=== PATIENT | male | born 1940 | race Caucasian/White ===

== ENCOUNTER → 2016-12-29 | Outpatient (CLI) | payer OTHER ==
[~2016-12-29] MED LIST: ACET-1256 PO; ALBU1AER9 INH; ALLO1TAB51 PO; ATEN-173 PO; Asmanex INH; CYAN100T PO; CYCL10TA6 PO; DILT-113 PO; EPP3 IM; FEXO1TAB46 PO; FLAX10004 PO; FLV1 PO; GABA400C PO; GADAVIST IV PRN; GARL400T4 PO; HYDR-5688 PO; LEVA1.25 NEB; MOME50SP5; PRAZ2CAP3 PO; PRLSR20 PO; PRN10125 PO; QUET1TAB30 PO; THIA100T11 PO; TRAZ50TA35 PO; VENL-271 PO
--- NOTE | 2016-12-29 11:28 | DIAGNOSTIC IMAGING REPORT ---
CERVICAL SPINE MRI WITH AND WITHOUT CONTRAST HISTORY: Neuropathy. Pain. M48.02 Degenerative cervical spinal stenosis TECHNIQUE: Multiplanar multisequence MRI of the cervical spine was performed both before and after the use of intravenous contrast. COMPARISON STUDY: None. FINDINGS: Severe degenerative intervertebral disc change throughout the entire cervical region. Reactive edematous change of the vertebral endplates. Sagittal images in flexion as well as extension show no significant variation compromise of the spinal canal. Hypertrophic change of the C1-C2 complex. Mild impact anterior cervical cord. C2-C3: Broad-based bulging disc with minimal impact anterior cervical cord. Moderate osteophytic narrowing of the neuroforamina bilaterally. C3-C4: Severe degenerative intervertebral this change. Broad-based bulging disc with moderate narrowing of the neuroforamina bilaterally at osteophytic bases. C4-C5: Broad-based posterior disc with osteophytic narrowing of the neuroforamina bilaterally. This is significant. C5-C6: Broad-based bulging disc again with osteophytic narrowing of the neuroforamina bilaterally. C6-C7: Broad-based bulging disc in contact with but showing no significant deformity of the cervical cord. Mild osteophytic narrowing of the left and to lesser extent left right neuroforamina. C7-T1: Mild broad-based disc bulge. No major impact upon the cervical cord or neuroforamina IMPRESSION: 1. Severe degenerative disc change throughout the entire cervical region. 2. Moderate to significant narrowing of the bulk of the neuroforamina bilaterally at all levels from C2 to through C5 3. Less prominent findings C5-C7. 4. Somewhat narrow spinal canal at virtually all levels of the cervical canal 5. No evidence for increase in foraminal or spinal canal narrowing with the patient in flexion as well as extension 6. No abnormal postcontrast enhancement. Electronically signed by: Chaparro Ochoa M.D. 12/29/2016 11:27 AM Dictated Date/Time: 12/29/2016 11:11 AM
== END | disposition home or self-care (01) ==
LOC: C.MRI 09:36
PROVIDERS: ATTEND Internal Medicine
DX: M48.02 Spinal stenosis, cervical region (principal)

== ENCOUNTER 2017-04-08 06:50 | Inpatient (IN) | payer OTHER ==
[2017-03-12 10:27] VITALS: BMI 24.0
--- NOTE | 2017-03-12 11:06 | PAT Medication Instructions ---
Service Date March 12, 2017. Current Home Medication List Acetaminophen (Tylenol), 1,000 MG PO BID Albuterol (Proair Hfa), 2 PUFFS INH Q6HR PRN Allopurinol (Allopurinol), 100 MG PO QPM Atenolol (Tenormin), 25 MG PO QAM Cyanocobalamin (Vitamin B-12), 100 MCG PO QAM Cyclobenzaprine Hcl (Flexeril), 1 TAB PO TID Diltiazem Hcl Ext Rel (Tiazac), 180 MG PO QAM Epinephrine (Epipen *), 0.3 MG IM UD Fexofenadine Hcl (Yaritza), 180 MG PO DAILY PRN for ALLERGY Folic Acid (Folic Acid), 1 MG PO QAM Garlic-Calcium (Garlic), PO QAM Hydrocodone/Acetaminophen 5MG/325MG ([place] 5MG/325MG), 1 TABLET PO DAILY PRN Levalbuterol Soln (Xopenex 1.25MG/3ML), 1 AMP NEB Q6HR PRN Lisinopril/Hctz (Zestoretic 10MG/12.5MG *), 1 TAB PO QAM Mometasone Furoate (Nasonex), 2 SPRAYS NA BID Omeprazole (Prilosec), 20 MG PO BID Prazosin Hcl (Prazosin), 2 MG PO HS Thiamine Hcl (Vitamin B-1), 100 MG PO QAM Trazodone Hcl (Trazodone), 50 MG PO HS Venlafaxine Hcl (Venlafaxine Hcl Er), 3 TAB PO QAM Medication Instructions For Your Scheduled Surgery Epinephrine (Epipen *), 0.3 MG IM UD (if needed) - Hold the following medications 2 weeks prior to surgery: Garlic-Calcium (Garlic), PO QAM - Hold the following medications the morning of surgery: Thiamine Hcl (Vitamin B-1), 100 MG PO QAM Lisinopril/Hctz (Zestoretic 10MG/12.5MG *), 1 TAB PO QAM Fexofenadine Hcl (Yaritza), 180 MG PO DAILY PRN for ALLERGY Folic Acid (Folic Acid), 1 MG PO QAM Cyanocobalamin (Vitamin B-12), 100 MCG PO QAM Cyclobenzaprine Hcl (Flexeril), 1 TAB PO TID - Take the following medications the morning of surgery with a sip of water: Venlafaxine Hcl (Venlafaxine Hcl Er), 3 TAB PO QAM Mometasone Furoate (Nasonex), 2 SPRAYS NA BID Omeprazole (Prilosec), 20 MG PO BID Levalbuterol Soln (Xopenex 1.25MG/3ML), 1 AMP NEB Q6HR PRN (if needed) Hydrocodone/Acetaminophen 5MG/325MG ([place] 5MG/325MG), 1 TABLET PO DAILY PRN (can take up to four hours prior to surgery if needed) Diltiazem Hcl Ext Rel (Tiazac), 180 MG PO QAM Atenolol (Tenormin), 25 MG PO QAM Acetaminophen (Tylenol), 1,000 MG PO BID (if needed) Albuterol (Proair Hfa), 2 PUFFS INH Q6HR PRN (bring with you to hospital on day of surgery) Asmanex - Take the following medications as scheduled the night before surgery: Trazodone Hcl (Trazodone), 50 MG PO HS Prazosin Hcl (Prazosin), 2 MG PO HS Mometasone Furoate (Nasonex), 2 SPRAYS NA BID Omeprazole (Prilosec), 20 MG PO BID Levalbuterol Soln (Xopenex 1.25MG/3ML), 1 AMP NEB Q6HR PRN Hydrocodone/Acetaminophen 5MG/325MG ([place] 5MG/325MG), 1 TABLET PO DAILY PRN Cyclobenzaprine Hcl (Flexeril), 1 TAB PO TID Allopurinol (Allopurinol), 100 MG PO QPM Acetaminophen (Tylenol), 1,000 MG PO BID Albuterol (Proair Hfa), 2 PUFFS INH Q6HR PRN Asmanex If you have any questions please call us at [phone] or [phone] ( [place]) or [phone]
[2017-03-12 11:26] LABS: BASO % 0.2 %; BASO ABS # 0.01 K/uL (0-0.2); COMPLETE YES; EOS % 3.7 %; HEMATOCRIT 38.6 % (42-52); IG% 0.2 %; LYMPH % 18.8 %; LYMPH ABS # 1.11 K/uL (1.2-3.4); MEAN CELL VOLUME 96.5 fL (80-100); MEAN CORPUSCULAR HEMOGLOBIN 32.3 pg (25-34); MEAN CORPUSCULAR HGB CONC 33.4 g/dl (32-36); MEAN PLATELET VOLUME 9.3 fL (7.4-10.4); MONO % 10.3 %; NEUT % 66.8 %; PLATELET COUNT 206 K/uL (130-400)
[2017-03-12 11:31] LABS: MANUAL MICROSCOPIC REQUIRED? NO; REVIEW REQ? NO; URINE APPEARANCE CLEAR (CLEAR); URINE BILIRUBIN NEG (NEG); URINE COLOR YELLOW; URINE EPITHELIAL CELL AUTO 0-5 /lpf (0-5); URINE NITRITE NEG (NEG); URINE PH 5.5 (4.5-7.5); URINE SPECIFIC GRAVITY 1.018 (1.000-1.030); UROBILINOGEN NEG (NEG); ZZUR CULT IF INDIC CLEAN CATCH NO
[2017-03-12 11:35] LABS: INR 0.9 (0.9-1.1); PROTHROMBIN TIME (PATIENT) 9.4 SECONDS (9.0-12.0)
--- NOTE | 2017-03-12 11:54 | DIAGNOSTIC IMAGING REPORT ---
CHEST 2 VIEWS ROUTINE CLINICAL HISTORY: Preoperative chest COMPARISON STUDY: 12/21/2011 FINDINGS: The cardiac and mediastinal contours are normal. There is no evidence of focal pulmonary consolidation. There is no evidence of failure. No pleural effusions are visualized.[ IMPRESSION: No active disease in the chest. Electronically signed by: Andrew Golden M.D. 03/12/2017 11:52 AM Dictated Date/Time: 03/12/2017 11:52 AM
[2017-03-12 12:39] LABS: ESTIMATED AVERAGE GLUCOSE 108 mg/dl; HA1C FLAG Normal (Normal)
[2017-03-12 15:39] LABS: BUN/CREATININE RATIO 16.8 (10-20); CALCIUM 9.1 mg/dl (8.5-10.1); CREATININE 1.7 mg/dl (0.60-1.40); POTASSIUM 4.7 mmol/L (3.5-5.1)
--- NOTE | 2017-04-07 19:53 | HISTORY & PHYSICAL EXAMINATION ---
DATE OF ADMISSION: 04/08/2017 CHIEF COMPLAINT: Chronic right shoulder pain and weakness. HISTORY OF PRESENT ILLNESS: This is a 76-year-old male patient of Dr. Davila'donte complaining of chronic right shoulder pain and weakness, longstanding, now progressively getting worse. The patient has failed conservative treatment. He has been diagnosed with end-stage osteoarthritis and insufficient rotator cuff. PAST MEDICAL HISTORY: Hypertension, asthma, anxiety, abnormal bruising, spine problems, back problems, sciatica and acid reflux. SOCIAL HISTORY: Nonsmoker, occasional drinker. PAST SURGICAL HISTORY: Will be provided on admission. FAMILY HISTORY: Noncontributory. REVIEW OF SYSTEMS: The patient complains of right shoulder pain and decreased strength. Otherwise, denies any shortness of breath, chest pain, nausea, vomiting or joint complaints. MEDICATIONS: Include; acetaminophen as needed, albuterol, ProAir 2 puffs q. 6 hours p.r.n., allopurinol 100 mg q.p.m., atenolol 25 mg daily, vitamin B12 100 mcg daily, Flexeril 10 mg one tablet t.i.d. as needed, diltiazem 180 mg daily, epinephrine 0.3 mg injection as needed, Yaritza 180 mg daily, Folic acid 1 mg daily, garlic daily, [place] as needed, Xopenex nebulizer as needed, lisinopril/hydrochlorothiazide 10/12.5 one tablet q.a.m, Nasonex 2 sprays b.i.d., Prilosec 20 mg b.i.d., prazosin 2 mg at bedtime, thiamine daily, trazodone 50 mg daily and venlafaxine 37.5 mg three tablets q.a.m. ALLERGIES: INCLUDE ASPIRIN. PHYSICAL EXAMINATION: GENERAL: Well-developed, well-nourished 76-year-old male in no acute distress. He is alert, oriented x3 and pleasant. HEENT: Normocephalic and atraumatic. Extraocular motions are intact. Pupils are equal and reactive to light. HEART: Regular rate and rhythm, no murmurs appreciated. LUNGS: Clear. ABDOMEN: Soft and nontender, bowel sounds are present. EXTREMITIES: Right shoulder reveals 3/5 strength globally. He can raise his arm in full elevation about 100 degrees passively through full range of motion with pain. NEUROLOGIC: Neurovascularly he is intact in his right upper extremity. 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 He has a history of hypertension, asthma, anxiety, abnormal bruising, spine problems, neck problems, sciatica and acid reflux. PLAN: The patient was advised of his diagnoses. Indications, risks, benefits and postop course have all been reviewed. The patient wishes to proceed with a right reversed total shoulder arthroplasty. Necessary consent forms, preoperative testing and clearances will be obtained.
[2017-04-08] VITALS (8 sets, daily range): BP systolic 138–181; BP diastolic 80–118; PULSE 78–106; TEMP 36.5–37; O2SAT 95–99; Ht 180.3 cm; Wt 82.1 kg
[~2017-04-08] VITALS: Ht 180.3 cm; Wt 82.1 kg
[~2017-04-08 06:50] MED LIST changes: +ACETAMINOPHEN 500 MG TAB PO SCH; +CEFAZOLIN 1000MG/55 ML D5W 55 ML IV SCH; +CeleBREX 200 MG CAP PO SCH; +DEXAMETHASONE 4 MG TAB PO SCH; +DEXAMETHASONE SOD INJ 4 MG/ML VIAL ONE; +FAMOTIDINE 20 MG TAB PO SCH; -FLAX10004 PO; +GABAPENTIN 300 MG CAP PO SCH; -GADAVIST IV PRN; +LACTATED RINGER'S 1000ML IV SCH; +METOCLOPRAMIDE HCL 10 MG TAB PO SCH; -QUET1TAB30 PO; +ROPIVACAINE 0.5% 5 MG/ML 30 ML VIAL ONE
[2017-04-08] MEDS ORDERED: BACITRACIN 50000 UNIT VIAL ONE (07:24)
[2017-04-08] MEDS ORDERED: EpINEphrine HCL INJ 1 MG/ML 5ML SYRINGE ONE (07:24)
[2017-04-08] MEDS ORDERED: ONDANSETRON INJ 2 MG/ML 2 ML VIAL IV PRN ×2 (08:30→12:30)
[2017-04-08] MEDS ORDERED: ATROPINE SULFATE 0.1 MG/ML 5ML SYR IV PRN (08:30)
[2017-04-08] MEDS ORDERED: HYDROmorphone INJ 1 MG/ML SYR IV PRN (08:30)
[2017-04-08] MEDS ORDERED: MEPERIDINE HCL 25 MG/ML CARP IV PRN (08:30)
[2017-04-08] MEDS ORDERED: LABETALOL HCL IV 5 MG/ML 20ML IV PRN (08:30)
[2017-04-08] MEDS ORDERED: FENTANYL CITRATE INJ 50 MCG/1 ML 2 ML VIAL IV PRN (08:30)
[2017-04-08] MEDS ORDERED: EpHEDrine SULFATE INJ 50 MG/ML AMP IV PRN (08:30)
[2017-04-08] MEDS ORDERED: NURSING VERBAL MED ORDER ONE ×2 (08:45→09:15)
[2017-04-08] MEDS ORDERED: VANCOMYCIN 1GM/270ML NSS ONE (09:05)
--- NOTE | 2017-04-08 09:07 | History & Physical Bridge Note ---
H&P Re-Evaluation Bridge Note: I have examined the patient, reviewed the History & Physical and in the interval since the performance of the History & Physical I have noted the following changes of clinical significance: No changes noted
[2017-04-08] MEDS ORDERED: MIDAZOLAM HCL 1 MG/ML 2ML VIAL ONE (09:15)
[2017-04-08] MEDS ORDERED: LIDOCAINE HCL 2% 2 ML VIAL (20MG/ML) ONE ×2 (09:16→10:45)
[2017-04-08] MEDS ORDERED: FENTANYL CITRATE INJ 50 MCG/1 ML 2 ML VIAL ONE (09:47)
[2017-04-08] MEDS ORDERED: DEXAMETHASONE SOD INJ 4 MG/ML VIAL ONE (10:45)
[2017-04-08] MEDS ORDERED: PROPOFOL IV EMULSION 10 MG/ML 20 ML VIAL IV ONE (10:45)
[2017-04-08] MEDS ORDERED: EpHEDrine SULFATE 50MG/5ML SYR ONE (10:45)
[2017-04-08] MEDS ORDERED: ONDANSETRON INJ 2 MG/ML 2 ML VIAL ONE (10:45)
[2017-04-08] MEDS ORDERED: GLYCOPYRROLATE INJ 0.2 MG/ML VIAL ONE ×2 (10:45)
[2017-04-08] MEDS ORDERED: ROCURONIUM BROMIDE 10 MG/ML 5 ML VIAL ONE ×2 (10:45)
[2017-04-08] MEDS ORDERED: NEOSTIGMINE METHYLSULFATE 5 MG/5 ML SYR ONE (10:45)
[2017-04-08] MEDS ORDERED: LABETALOL HCL IV 5 MG/ML 20ML IV ONE (10:57)
--- NOTE | 2017-04-08 12:23 | [facility] Operative Report ---
Operative Report Operative Date Apr 08, 2017. Pre-Operative Diagnosis Right shoulder end-stage osteoarthritis,chronic rotator cuff tear biceps tear hx of prior shoulder surgery Post-Operative Diagnosis same Procedure(s) Performed right reversed total shoulder replacement Surgeon Dr. Davila Pull Worker Surgeon(s) Chaparro Ann PA-C Estimated Blood Loss 100mL Findings rotator cuff arthropathy grade 4 djd chronic rotator cuff tear tendinopathy Specimens A. Right humeral head Drains 2 hemovac Anesthesia general and regional Complication(s) None Disposition Recovery Room / PACU Indications end stage djd chronic pain rotator cuff arthropathy I attest to the content of the Intraoperative Record and any orders documented therein. Any exceptions are noted below.
[2017-04-08] MEDS ORDERED: FEXOFENADINE HCL 180 MG TAB PO PRN (12:30)
[2017-04-08] MEDS ORDERED: EPINEPHRINE ADULT AUTO-INJECT 0.3 MG SYR IM SCH (12:30)
[2017-04-08] MEDS ORDERED: ZOLPIDEM TARTRATE 5 MG TAB PO PRN (12:30)
[2017-04-08] MEDS ORDERED: SOD PHOSPHATE/SOD BIPHOSPHATE ENEMA 132 ML BTL PR PRN (12:30)
[2017-04-08] MEDS ORDERED: ACETAMINOPHEN 325 MG TAB PO PRN (12:30)
[2017-04-08] MEDS ORDERED: HYDROCODONE/ACETAMOPHEN 5/325MG TAB PO PRN (12:30)
[2017-04-08] MEDS ORDERED: BISACODYL 10 MG SUPP PR PRN (12:30)
[2017-04-08] MEDS ORDERED: NALOXONE HCL 0.4 MG/1 ML VIAL/CARP IV PRN (12:30)
--- NOTE | 2017-04-08 13:15 | DIAGNOSTIC IMAGING REPORT ---
RIGHT SHOULDER 2 VIEWS CLINICAL HISTORY: Postoperative examination. FINDINGS: Two portable views of the right shoulder are obtained. A right shoulder arthroplasty is in near-anatomic alignment. No fracture is seen. Productive degenerative change is noted at the acromioclavicular joint. There are expected postoperative findings overlying the right shoulder, including skin clips, subcutaneous gas, soft tissue swelling, and a surgical drain. The imaged right lung parenchyma appears clear noting dependent atelectasis. IMPRESSION: Expected postoperative findings status post right shoulder arthroplasty. No acute fracture is identified. Dictated: 04/08/2017 12:50 PM Transcribed: 04/08/2017 1:15 PM [email or web address] Electronically signed by: Phill Oakley M.D. 04/08/2017 1:35 PM Dictated Date/Time: 04/08/2017 12:50 PM
[2017-04-08] MEDS ORDERED: MoRPHine SULFATE 4 MG/ML 1 ML CARP\\VIAL IV PRN (13:30)
--- NOTE | 2017-04-08 14:17 | Anesthesiology Progress Note ---
Anesthesia Post Op Note Date & Time Apr 08, 2017 at 14:17 Vital Signs Pain Intensity: 0.0 Vital Signs Past 12 Hours Date Time Temp Pulse Resp B/P (MAP) Pulse Ox O2 Delivery O2 Flow Rate FiO2 04/08/17 13:50 98 Nasal Cannula 2.0 04/08/17 13:48 36.5 78 18 150/81 (104) 96 Nasal Cannula 2.0 04/08/17 13:30 36.4 75 18 133/93 96 Nasal Cannula 3 04/08/17 13:15 36.4 72 18 148/93 96 Nasal Cannula 3 04/08/17 12:52 145/86 04/08/17 12:50 83 18 145/86 94 Nasal Cannula 3 04/08/17 12:48 88 20 04/08/17 12:48 86 20 96 04/08/17 12:47 151/91 04/08/17 12:43 87 14 98 04/08/17 12:43 87 14 04/08/17 12:42 168/118 04/08/17 12:38 89 16 04/08/17 12:38 85 16 96 04/08/17 12:36 145/106 04/08/17 12:33 86 15 04/08/17 12:33 85 15 98 04/08/17 12:32 139/105 04/08/17 12:29 162/103 04/08/17 12:28 85 18 04/08/17 12:28 88 18 98 04/08/17 12:27 154/104 04/08/17 12:25 145/100 04/08/17 12:23 36.2 87 18 154/104 98 Mask 10 04/08/17 07:43 36.8 95 20 181/118 98 Room Air Notes Mental Status: alert / awake / arousable, participated in evaluation Pt Amnestic to Procedure: Yes Nausea / Vomiting: adequately controlled Pain: adequately controlled Airway Patency, RR, SpO2: stable & adequate BP & HR: stable & adequate Hydration State: stable & adequate Anesthetic Complications: no major complications apparent
[2017-04-08] MEDS ORDERED: HydrALAZINE HCL 20 MG/ML VIAL IV. PRN (15:15)
--- NOTE | 2017-04-08 15:29 | Medical Consult ---
Consultation Date of Consultation: Apr 08, 2017. Attending Physician: Chi Davila M.D. Reason for Consultation: Medical management History of Present Illness This is a 76 y/o male with a history of HTN, HLD, CKD stage III, anxiety/ depression and PTSD, gout, and GERD who presents s/p right reversed TSA with Dr. Davila on 04/08 for medical management. The patient reports feeling well postoperatively. He currently denies any pain. He still reports numbness and tingling in his right shoulder and right upper extremity down to his fingers. Patient has not eaten, urinated, passed gas, or had a bowel movement yet postoperatively. The patient denies fevers, chills, sweats, chest pain, palpitations, claudication, cough, wheezing, shortness of breath, nausea, vomiting, abdominal pain, dysuria, hematuria, urinary retention, paralysis, weakness. Past Medical/Surgical History HTN HLD CKD stage III Anxiety Depression PTSD Gout GERD Family History Cancer (breast) Hypertension Myocardial infarction Social History Smoking Status: Former Smoker Smokeless Tobacco Use: Yes Alcohol Use: heavy (3-4 beers/day) Drug Use: none Marital Status: Housing Status: lives with significant other Occupation Status: retired Allergies Coded Allergies: Aspirin (Verified Allergy, Severe, hives and mouth/throat swelling, hyperventilation, 04/08/17) hypervents,HIVES AND SWELLING Ketorolac (Verified Allergy, Unknown, avoids secondary to aspirin component , 04/08/17) Oxycodone (Verified Allergy, Unknown, HALLUCINTATIONS, 04/08/17) Statins (Verified Allergy, Unknown, severe muscle cramps, 04/08/17) Current Inpatient Medications Current Inpatient Medications Medications (Trade) Dose Ordered Sig/Lakshmi Route Start Time Stop Time Status Last Admin Dose Admin Lactated Ringer's 1,000 ml @ 60 mls/hr [id number] IV 04/08/17 06:00 04/08/17 22:39 04/08/17 07:31 60 MLS/HR Cefazolin Sodium 55 ml @ 100 mls/hr PREOP IV 04/08/17 06:00 04/08/17 18:00 04/08/17 09:06 100 MLS/HR Acetaminophen (Tylenol Tab) 1,000 mg PREOP PO 04/08/17 06:00 04/08/17 18:00 6/8/17 07:57 1,000 MG Celecoxib (CeleBREX CAP) 200 mg PREOP PO 04/08/17 06:00 04/08/17 18:00 Dexamethasone (Decadron Tab) 8 mg PREOP PO 04/08/17 06:00 04/08/17 18:00 04/08/17 07:58 8 MG Famotidine (Pepcid Tab) 20 mg PREOP PO 04/08/17 06:00 04/08/17 18:00 04/08/17 07:57 20 MG Gabapentin (Neurontin Cap) 300 mg PREOP PO 04/08/17 06:00 04/08/17 18:00 04/08/17 07:57 300 MG Metoclopramide HCl (Reglan Tab) 10 mg PREOP PO 04/08/17 06:00 04/08/17 18:00 04/08/17 07:58 10 MG Lactated Ringer's 1,000 ml @ 15 mls/hr Q24H IV 04/08/17 06:00 04/09/17 05:59 Allopurinol (Zyloprim Tab) 100 mg QPM PO 04/09/17 21:00 05/09/17 20:59 Atenolol (Tenormin Tab) 25 mg QAM PO 04/09/17 09:00 05/09/17 08:59 Cyanocobalamin (Vitamin B-12 Tab) 100 mcg QAM PO 04/09/17 09:00 05/09/17 08:59 Cyclobenzaprine HCl (Flexeril Tab) 10 mg TID PO 04/08/17 21:00 05/08/17 20:59 Diltiazem HCl (TIAzac CAP) 180 mg QAM PO 04/09/17 09:00 05/09/17 08:59 Fexofenadine HCl (Yaritza Tab) 180 mg DAILY PRN PO 04/08/17 12:30 05/08/17 12:29 Folic Acid (Folvite Tab) 1 mg QAM PO 04/09/17 09:00 05/09/17 08:59 Gabapentin (Neurontin Cap) 400 mg TID PO 04/08/17 21:00 05/08/17 20:59 Levalbuterol (Xopenex 1.25MG/ 3ML Neb) 1.25 mg Q6RWA PRN INH 04/08/17 21:00 05/08/17 20:59 HCTZ/Lisinopril (Prinzide 10-12.5MG Tab) 1 tab QAM PO 04/09/17 09:00 05/09/17 08:59 Future Hold Thiamine HCl (Vitamin B-1 Tab) 100 mg QAM PO 04/09/17 09:00 05/09/17 08:59 Trazodone HCl (Desyrel Tab) 50 mg HS PO 04/08/17 21:00 05/08/17 20:59 Fluticasone Propionate (Flonase Nasal [place]) 2 sprays BID NA 04/08/17 21:00 05/08/17 20:59 Prazosin HCl (Prazosin) 2 mg HS PO 04/08/17 21:00 05/08/17 20:59 Venlafaxine HCl (effeXOR EXTENDED REL CAP) 112.5 mg QAM PO 04/09/17 09:00 05/09/17 08:59 Mometasone Furoate (Asmanex 220MCG Inh) 1 puff BID PRN INH 04/08/17 12:30 05/08/17 12:29 Acetaminophen (Tylenol Tab) 650 mg Q6H PRN PO 04/08/17 12:30 05/08/17 12:29 Diphenhydramine HCl (Benadryl Cap) 25 mg Q8 PRN PO 04/08/17 12:30 05/08/17 12:29 Zolpidem Tartrate (Ambien Tab) 5 mg HSZ PRN PO 04/08/17 12:30 05/08/17 12:29 Ondansetron HCl (Zofran Inj) 4 mg Q6H PRN IV 04/08/17 12:30 05/08/17 12:29 Pantoprazole Sodium (Protonix Tab) 40 mg QAM PO 04/09/17 09:00 05/09/17 08:59 Potassium Chloride/Dextrose/ Sod Cl 1,000 ml @ 100 mls/hr Q10H IV 04/08/17 15:00 04/09/17 14:59 Acetaminophen/ Hydrocodone Bitart ([place] 5/325 Tab) `1-2 TABS FOR PAIN `1 TAB... Q6H PRN PO 04/08/17 12:30 04/22/17 12:29 Morphine Sulfate (MoRPHine SULFATE INJ) 2 mg Q2H PRN IV 04/08/17 12:30 04/22/17 12:29 Naloxone HCl (Narcan Inj) 0.1 mg Q2M PRN IV 04/08/17 12:30 05/08/17 12:29 Magnesium Hydroxide (Milk Of Magnesia Susp) 30 ml Q6H PRN PO 04/08/17 12:30 05/08/17 12:29 Bisacodyl (Dulcolax Supp) 10 mg DAILY PRN [place] 04/08/17 12:30 05/08/17 12:29 Sodium Biphosphate/ Sodium Phosphate (Fleet Enema) 132 ml DAILY PRN [place] 04/08/17 12:30 05/08/17 12:29 Docusate Sodium (coLACE CAP) 100 mg BID PO 04/08/17 21:00 05/08/17 20:59 Multivitamins (Multivitamin Tab) 1 tab DAILY PO 04/09/17 09:00 05/09/17 08:59 Cefazolin Sodium 1000 mg/Dextrose 55 ml @ 100 mls/hr Q8H IV 04/08/17 18:00 04/09/17 02:32 Morphine Sulfate (MoRPHine SULFATE INJ) 4 mg Q2H PRN IV 04/08/17 13:30 04/22/17 13:29 Albuterol (Ventolin Hfa Inhaler) 2 puffs Q6HWA PRN INH 04/08/17 18:00 05/08/17 17:59 Hydralazine HCl (HydrALAZINE INJ) 10 mg Q6H PRN IV. 04/08/17 15:15 05/08/17 15:14 UNV Review of Systems See HPI for pertinent positives and negatives. All other systems reviewed and negative. Physical Exam Date Time Temp Pulse Resp B/P (MAP) Pulse Ox O2 Delivery O2 Flow Rate FiO2 04/08/17 15:05 96 18 152/83 (106) 99 Nasal Cannula 2.0 04/08/17 14:20 81 14 138/80 (99) 99 Nasal Cannula 2.0 04/08/17 14:00 Nasal Cannula 2.0 04/08/17 13:50 98 Nasal Cannula 2.0 04/08/17 13:48 36.5 78 18 150/81 (104) 96 Nasal Cannula 2.0 04/08/17 13:30 36.4 75 18 133/93 96 Nasal Cannula 3 04/08/17 13:15 36.4 72 18 148/93 96 Nasal Cannula 3 04/08/17 12:52 145/86 04/08/17 12:50 83 18 145/86 94 Nasal Cannula 3 04/08/17 12:48 88 20 04/08/17 12:48 86 20 96 04/08/17 12:47 151/91 04/08/17 12:43 87 14 98 04/08/17 12:43 87 14 04/08/17 12:42 168/118 04/08/17 12:38 89 16 04/08/17 12:38 85 16 96 04/08/17 12:36 145/106 04/08/17 12:33 86 15 04/08/17 12:33 85 15 98 04/08/17 12:32 139/105 04/08/17 12:29 162/103 04/08/17 12:28 85 18 04/08/17 12:28 88 18 98 04/08/17 12:27 154/104 04/08/17 12:25 145/100 04/08/17 12:23 36.2 87 18 154/104 98 Mask 10 04/08/17 07:43 36.8 95 20 181/118 98 Room Air General appearance: Well-developed, well-nourished, no apparent distress Head: Normocephalic, atraumatic Eyes: Normal inspection, PERRL, EOMI ENT: Normal ENT inspection, hearing grossly normal, pharynx normal Neck: Supple, no JVD, trachea midline Respiratory/Chest: Lungs clear to auscultation, normal breath sounds, no respiratory distress Cardiovascular: Regular rate & rhythm, no gallop, no murmur Abdomen/GI: Normal bowel sounds, non-tender, soft Extremities/Musculoskeletal: +R shoulder dressed, c/d/i. R sling. Normal inspection, no calf tenderness, no pedal edema Neurological/Psych: Alert, normal mood/affect, oriented x 3 Skin: Normal color, warm/dry, no rash Laboratory Results Last 24 Hours Test 04/08/17 15:05 Assessment & Plan 76 y/o male with a history of HTN, HLD, CKD stage III, anxiety/depression and PTSD, gout, and GERD who presents s/p right reversed TSA with Dr. Davila on 04/08 for medical management. -Pain management, DVT prophylaxis, and PT/OT as per primary team -POD #0 -Continue gabapentin 400 mg PO TID HTN--stable -Hold lisinopril/HCTZ for now until renal function checked/stable and off IVF -Continue atenolol 25 mg PO qd and diltiazem 180 mg PO qd -Cover with hydralazine 10 mg IV q6h prn SBP >180 CKD stage III--baseline creatinine around 1.6-1.8 -PRP pending -Continue to monitor Anxiety, depression, PTSD -Continue trazodone 50 mg PO qhs, venlafaxine 112.5 mg PO qd, and prazosin 2 mg PO qhs Gout -Continue allopurinol 100 mg PO qd GERD -Convert omeprazole to pantoprazole 40 mg PO qd Thank you for this consultation. We will continue to follow. Assessment and Plan Attending Addendum: I have physically seen and examined this patient, directed their medical care, supervised the Physician On Awake Counselor's activity, and agree with the H&P as noted above, with the following changes: NONE.
[2017-04-08] MEDS: D5W AND 1/2NSS + 20MEQ KCL 1,000 ML IV SCH (15:33)
[2017-04-08 15:55] LABS: HEMATOCRIT 38.4 % (42-52); MEAN CELL VOLUME 94.8 fL (80-100); MEAN CORPUSCULAR HEMOGLOBIN 32.6 pg (25-34); MEAN CORPUSCULAR HGB CONC 34.4 g/dl (32-36); MEAN PLATELET VOLUME 9.2 fL (7.4-10.4); PLATELET COUNT 205 K/uL (130-400); RED BLOOD COUNT 4.05 M/uL (4.7-6.1); WHITE BLOOD COUNT 11.96 K/uL (4.8-10.8)
[2017-04-08 16:13] LABS: BUN/CREATININE RATIO 13.5 (10-20); CALCIUM 8.4 mg/dl (8.5-10.1); CREATININE 1.8 mg/dl (0.60-1.40); POTASSIUM 4.7 mmol/L (3.5-5.1)
[2017-04-08 16:19] LABS: BASO % 0.1 %; BASO ABS # 0.01 K/uL (0-0.2); COMPLETE YES; EOS % 0.1 %; IG% 0.2 %; LYMPH % 3.4 %; LYMPH ABS # 0.41 K/uL (1.2-3.4); MONO % 1.3 %; NEUT % 94.9 %
[2017-04-08] MEDS: CEFAZOLIN IV 1,000 MG in DEXTROSE 5% 50ML 50 ML IV SCH (17:49)
[2017-04-08] MEDS ORDERED: ALBUTEROL HFA 8 GM INHALER INH SCH (18:00)
[2017-04-08] MEDS: MAGNESIUM HYDROXIDE SUSP 30 ML UDC PO PRN (19:41)
[2017-04-08] MEDS: MOMETASONE FUROATE 14 PUFF/1 INHALER INH PRN (19:41)
[2017-04-08] MEDS: FLUTICASONE PROPIONATE NA SPR 16 GM BTL SCH (20:42)
[2017-04-08] MEDS: DOCUSATE SODIUM 100 MG CAP PO SCH (20:45)
[2017-04-08] MEDS: GABAPENTIN 400 MG CAP PO SCH (20:45)
[2017-04-08] MEDS: CYCLOBENZAPRINE HCL 10 MG TAB PO SCH (20:46)
[2017-04-08] MEDS: PRAZOSIN HCL 1 MG CAP PO SCH (20:46)
[2017-04-08] MEDS: TRAZODONE HCL 50 MG TAB PO SCH (20:46)
[2017-04-09] VITALS (13 sets, daily range): BP systolic 75–196; BP diastolic 54–98; PULSE 82–110; TEMP 36.3–37.8; O2SAT 84–97
[2017-04-09] MEDS: D5W AND 1/2NSS + 20MEQ KCL 1,000 ML IV SCH (00:51)
[2017-04-09] MEDS: MoRPHine SULFATE 2 MG/ML CARP IV PRN ×3 (01:40→14:42)
[2017-04-09] MEDS: CEFAZOLIN IV 1,000 MG in DEXTROSE 5% 50ML 50 ML IV SCH (01:44)
[2017-04-09 05:36] LABS: HEMATOCRIT 35.2 % (42-52); MEAN CELL VOLUME 93.9 fL (80-100); MEAN CORPUSCULAR HGB CONC 34.1 g/dl (32-36); MEAN PLATELET VOLUME 9.4 fL (7.4-10.4); PLATELET COUNT 221 K/uL (130-400); RED BLOOD COUNT 3.75 M/uL (4.7-6.1); WHITE BLOOD COUNT 13.28 K/uL (4.8-10.8)
[2017-04-09 06:12] LABS: CALCIUM 8.5 mg/dl (8.5-10.1); CREATININE 1.7 mg/dl (0.60-1.40)
[2017-04-09] MEDS: DOCUSATE SODIUM 100 MG CAP PO SCH ×2 (08:41→21:00)
[2017-04-09] MEDS: CYCLOBENZAPRINE HCL 10 MG TAB PO SCH ×4 (08:42→21:00)
[2017-04-09] MEDS: GABAPENTIN 400 MG CAP PO SCH ×4 (08:42→23:57)
[2017-04-09] MEDS: PANTOprazole SOD 40 MG TAB PO SCH (08:43)
[2017-04-09] MEDS: DILTIAZEM HCL (TIAzac) 180 MG CAPCR PO SCH (08:43)
[2017-04-09] MEDS: CYANOCOBALAMIN 100 MCG TAB (VIT B-12) PO SCH (08:43)
[2017-04-09] MEDS: MULTIVITAMIN TAB PO SCH (08:44)
[2017-04-09] MEDS: THIAMINE HCL 100 MG TAB PO SCH (08:44)
[2017-04-09] MEDS: VENLAFAXINE HCL XR 37.5 MG CAPXR PO SCH (08:44)
[2017-04-09] MEDS: FLUTICASONE PROPIONATE NA SPR 16 GM BTL SCH ×2 (08:46→23:52)
[2017-04-09] MEDS: MAGNESIUM HYDROXIDE SUSP 30 ML UDC PO PRN (08:51)
--- NOTE | 2017-04-09 08:59 | Orthopedic Progress Note ---
Orthopedic Progress Note Date of Service Apr 09, 2017. Subjective Post OP Day: 1 Reports: pain controlled w PO medications, Denies: chest pain, SOB, nausea / vomiting, light headedness, calf pain Additional Notes: Main issue is pain, patient's chart has oxycodone listed as an allergy but patient states its oxycontin that makes him "loopy" and he has tolerated percocet in the past. Objective N/V intact, capillary refill less than 2 sec., dressing C/D/I, A&O x3 Sling in tact, fingers mobile. Date Time Temp Pulse Resp B/P (MAP) Pulse Ox O2 Delivery O2 Flow Rate FiO2 04/09/17 07:00 Room Air 04/09/17 06:49 36.4 89 18 165/83 (110) 95 Room Air 04/09/17 03:42 36.3 99 16 154/82 (106) 96 Room Air 04/09/17 00:00 Room Air 04/08/17 23:25 36.7 106 16 145/89 (107) 97 Room Air 04/08/17 19:43 36.5 100 24 156/84 (108) 95 Room Air 04/08/17 16:49 37.0 106 15 161/102 (121) 99 Nasal Cannula 3.0 04/08/17 16:00 Nasal Cannula 2.0 04/08/17 15:05 96 18 152/83 (106) 99 Nasal Cannula 2.0 04/08/17 14:20 81 14 138/80 (99) 99 Nasal Cannula 2.0 04/08/17 14:00 Nasal Cannula 2.0 04/08/17 13:50 98 Nasal Cannula 2.0 04/08/17 13:48 36.5 78 18 150/81 (104) 96 Nasal Cannula 2.0 04/08/17 13:30 36.4 75 18 133/93 96 Nasal Cannula 3 04/08/17 13:15 36.4 72 18 148/93 96 Nasal Cannula 3 04/08/17 12:52 145/86 04/08/17 12:50 83 18 145/86 94 Nasal Cannula 3 04/08/17 12:48 88 20 04/08/17 12:48 86 20 96 04/08/17 12:47 151/91 04/08/17 12:43 87 14 98 04/08/17 12:43 87 14 6/8/17 12:42 168/118 04/08/17 12:38 89 16 04/08/17 12:38 85 16 96 04/08/17 12:36 145/106 04/08/17 12:33 86 15 04/08/17 12:33 85 15 98 04/08/17 12:32 139/105 04/08/17 12:29 162/103 04/08/17 12:28 85 18 04/08/17 12:28 88 18 98 04/08/17 12:27 154/104 04/08/17 12:25 145/100 04/08/17 12:23 36.2 87 18 154/104 98 Mask 10 Laboratory Results 24 Hours: Test 04/08/17 15:41 04/09/17 05:05 White Blood Count 11.96 K/uL Red Blood Count 4.05 M/uL Hemoglobin 13.2 g/dL 12.0 g/dL Hematocrit 38.4 % 35.2 % Mean Corpuscular Volume 94.8 fL Mean Corpuscular Hemoglobin 32.6 pg Mean Corpuscular Hemoglobin Concent 34.4 g/dl Platelet Count 205 K/uL Mean Platelet Volume 9.2 fL Neutrophils (%) (Auto) 94.9 % Lymphocytes (%) (Auto) 3.4 % Monocytes (%) (Auto) 1.3 % Eosinophils (%) (Auto) 0.1 % Basophils (%) (Auto) 0.1 % Neutrophils # (Auto) 11.35 K/uL Lymphocytes # (Auto) 0.41 K/uL Monocytes # (Auto) 0.16 K/uL Eosinophils # (Auto) 0.01 K/uL Basophils # (Auto) 0.01 K/uL Assessment & Plan Assessment: POD #1, Rt reversed TSA, biceps tenodesis Plan: PT/ OT as ordered D/C plans home As per medicine Will D/C norco, add oxyIR prn and tylenol q8h. Inhouse Planning Pain Management: Morphine, PO Tylenol, Oxy IR DVT Prophylaxis: SCDs Discharge Planning Discharge Planning: home Pain Management: PO Tylenol, Oxy IR
[2017-04-09] MEDS ORDERED: LISINOPRIL/HCTZ 10/12.5MG TAB PO SCH (09:00)
--- NOTE | 2017-04-09 10:39 | Hospitalist Progress Note ---
Hospitalist Progress Note Date of Service Apr 09, 2017. Subjective Pt evaluation today including: conversation w/ patient, physical exam, chart review, lab review, conversation w/ payroll consultant, review of inpatient medication list Patient reports severe pain that started in the right shoulder and shoots down his right arm. It started about 10 minutes ago. It seemed to come on suddenly. He did notify the nurse to notify the orthopedic PA. He reports tolerating his diet, however he has been burping. He has not yet passed gas. No abdominal pain. No fever or chills. Denies any chest pain or shortness of breath. Additional Comments: 6 system review negative. Please see pertinent positives in the history of present illness section. Objective Vital Signs Date Time Temp Pulse Resp B/P (MAP) Pulse Ox O2 Delivery O2 Flow Rate FiO2 04/09/17 10:29 36.8 84 20 157/88 (111) 84 Room Air 04/09/17 09:45 90 140/97 (111) 96 Room Air 04/09/17 07:00 Room Air 04/09/17 06:49 36.4 89 18 165/83 (110) 95 Room Air 04/09/17 03:42 36.3 99 16 154/82 (106) 96 Room Air 04/09/17 00:00 Room Air 04/08/17 23:25 36.7 106 16 145/89 (107) 97 Room Air 04/08/17 19:43 36.5 100 24 156/84 (108) 95 Room Air 04/08/17 16:49 37.0 106 15 161/102 (121) 99 Nasal Cannula 3.0 04/08/17 16:00 Nasal Cannula 2.0 04/08/17 15:05 96 18 152/83 (106) 99 Nasal Cannula 2.0 04/08/17 14:20 81 14 138/80 (99) 99 Nasal Cannula 2.0 04/08/17 14:00 Nasal Cannula 2.0 04/08/17 13:50 98 Nasal Cannula 2.0 04/08/17 13:48 36.5 78 18 150/81 (104) 96 Nasal Cannula 2.0 04/08/17 13:30 36.4 75 18 133/93 96 Nasal Cannula 3 04/08/17 13:15 36.4 72 18 148/93 96 Nasal Cannula 3 04/08/17 12:52 145/86 04/08/17 12:50 83 18 145/86 94 Nasal Cannula 3 04/08/17 12:48 88 20 04/08/17 12:48 86 20 96 04/08/17 12:47 151/91 04/08/17 12:43 87 14 98 04/08/17 12:43 87 14 04/08/17 12:42 168/118 04/08/17 12:38 89 16 04/08/17 12:38 85 16 96 04/08/17 12:36 145/106 04/08/17 12:33 86 15 04/08/17 12:33 85 15 98 04/08/17 12:32 139/105 04/08/17 12:29 162/103 04/08/17 12:28 85 18 04/08/17 12:28 88 18 98 04/08/17 12:27 154/104 04/08/17 12:25 145/100 04/08/17 12:23 36.2 87 18 154/104 98 Mask 10 Physical Exam General Appearance: + severe distress (in severe pain) Eyes: EOMI Neck: no JVD Respiratory/Chest: lungs clear Cardiovascular: regular rate, rhythm Abdomen: normal bowel sounds, non tender, soft Extremities: non-tender, no pedal edema Neurologic/Psychiatric: no motor/sensory deficits, oriented x 3 Skin: warm/dry Laboratory Results 04/09/17 05:05 04/09/17 05:05 Test 04/08/17 15:41 04/09/17 05:05 Immature Granulocyte % (Auto) 0.2 % White Blood Count 11.96 K/uL (4.8-10.8) Red Blood Count 4.05 M/uL (4.7-6.1) 3.75 M/uL (4.7-6.1) Hemoglobin 13.2 g/dL (14.0-18.0) Hematocrit 38.4 % (42-52) Mean Corpuscular Volume 94.8 fL (80-100) 93.9 fL (80-100) Mean Corpuscular Hemoglobin 32.6 pg (25-34) 32.0 pg (25-34) Mean Corpuscular Hemoglobin Concent 34.4 g/dl (32-36) 34.1 g/dl (32-36) Platelet Count 205 K/uL (130-400) Mean Platelet Volume 9.2 fL (7.4-10.4) 9.4 fL (7.4-10.4) Neutrophils (%) (Auto) 94.9 % Lymphocytes (%) (Auto) 3.4 % Monocytes (%) (Auto) 1.3 % Eosinophils (%) (Auto) 0.1 % Basophils (%) (Auto) 0.1 % Neutrophils # (Auto) 11.35 K/uL (1.4-6.5) Lymphocytes # (Auto) 0.41 K/uL (1.2-3.4) Monocytes # (Auto) 0.16 K/uL (0.11-0.59) Eosinophils # (Auto) 0.01 K/uL (0-0.5) Basophils # (Auto) 0.01 K/uL (0-0.2) Immature Granulocyte # (Auto) 0.02 K/uL (0.00-0.02) Red Blood Cell Morphology Unremarkable RDW Standard Deviation 47.0 fL (36.4-46.3) RDW Coefficient of Variation 13.6 % (11.5-14.5) Anion Gap 7.0 mmol/L (3-11) Est Creatinine Clear Calc Drug Dose 39.4 ml/min Estimated GFR () 44.4 Estimated GFR (Non- 38.3 BUN/Creatinine Ratio 14.0 (10-20) Calcium Level 8.5 mg/dl (8.5-10.1) Last 24 Hours Test 04/08/17 15:41 04/09/17 05:05 White Blood Count 11.96 K/uL 13.28 K/uL Red Blood Count 4.05 M/uL 3.75 M/uL Hemoglobin 13.2 g/dL 12.0 g/dL Hematocrit 38.4 % 35.2 % Mean Corpuscular Volume 94.8 fL 93.9 fL Mean Corpuscular Hemoglobin 32.6 pg 32.0 pg Mean Corpuscular Hemoglobin Concent 34.4 g/dl 34.1 g/dl Platelet Count 205 K/uL 221 K/uL Mean Platelet Volume 9.2 fL 9.4 fL Neutrophils (%) (Auto) 94.9 % Lymphocytes (%) (Auto) 3.4 % Monocytes (%) (Auto) 1.3 % Eosinophils (%) (Auto) 0.1 % Basophils (%) (Auto) 0.1 % Neutrophils # (Auto) 11.35 K/uL Lymphocytes # (Auto) 0.41 K/uL Monocytes # (Auto) 0.16 K/uL Eosinophils # (Auto) 0.01 K/uL Basophils # (Auto) 0.01 K/uL RDW Standard Deviation 47.7 fL 47.0 fL RDW Coefficient of Variation 13.6 % 13.6 % Immature Granulocyte % (Auto) 0.2 % Immature Granulocyte # (Auto) 0.02 K/uL Red Blood Cell Morphology Unremarkable Sodium Level 138 mmol/L 135 mmol/L Potassium Level 4.7 mmol/L 5.0 mmol/L Chloride Level 106 mmol/L 100 mmol/L Carbon Dioxide Level 23 mmol/L 28 mmol/L Anion Gap 9.0 mmol/L 7.0 mmol/L Blood Urea Nitrogen 24 mg/dl 24 mg/dl Creatinine 1.80 mg/dl 1.70 mg/dl Est Creatinine Clear Calc Drug Dose 37.2 ml/min 39.4 ml/min Estimated GFR () 41.4 44.4 Estimated GFR (Non- 35.8 38.3 BUN/Creatinine Ratio 13.5 14.0 Random Glucose 236 mg/dl 163 mg/dl Calcium Level 8.4 mg/dl 8.5 mg/dl Assessment and Plan 76 y/o male with a history of HTN, HLD, CKD stage III, anxiety/depression and PTSD, gout, and GERD who presents s/p right reversed TSA with Dr. Davila on 04/08 for medical management. -Pain management, DVT prophylaxis, and PT/OT as per primary team -Orthopedics will add oxycodone to pain regimen HTN--stable -Continue to hold lisinopril/HCTZ for one more day. If renal function is okay, may resume tomorrow -Continue atenolol 25 mg PO qd and diltiazem 180 mg PO qd -Cover with hydralazine 10 mg IV q6h prn SBP >180 CKD stage III--baseline creatinine around 1.6-1.8. Creatinine is at baseline, however potassium is trending up -Since patient is tolerating diet, DC IV fluids with potassium -Check PRP in the morning Anxiety, depression, PTSD -Continue trazodone 50 mg PO qhs, venlafaxine 112.5 mg PO qd, and prazosin 2 mg PO qhs Gout -Continue allopurinol 100 mg PO qd GERD -Convert omeprazole to pantoprazole 40 mg PO qd Thank you for this consultation. We will continue to follow.
[2017-04-09] MEDS: SODIUM CHLORIDE 0.9% 1000ML 500 ML IV SCH ×2 (11:00→12:00)
[2017-04-09] MEDS ORDERED: NURSING VERBAL MED ORDER ONE (11:45)
[2017-04-09] MEDS ORDERED: ACETAMINOPHEN 500 MG TAB PO SCH (14:00)
--- NOTE | 2017-04-09 14:36 | DIAGNOSTIC IMAGING REPORT ---
CT OF THE HEAD WITHOUT CONTRAST CLINICAL HISTORY: Mental status changes. COMPARISON STUDY: No previous studies for comparison. CT DOSE: 537.48 mGy.cm TECHNIQUE: Helical axial images of the head were obtained without IV contrast. Automated exposure control was utilized for the study. FINDINGS: No acute intracranial hemorrhage, midline shift or mass effect is present. Ventricular system is normal for age. Basilar cisterns are patent. There are no extra-axial collections. Bhat-white differentiation is maintained with there are no findings to suggest acute dural sinus thrombosis or acute territorial infarct. The patient is slightly tilted. There is mild mucosal thickening of the sinuses and a small amount of fluid within the right mastoid air cells. There are no significant calvarial abnormalities. IMPRESSION: No acute intracranial findings. Electronically signed by: Joseluis Jacobsen M.D. 04/09/2017 2:35 PM Dictated Date/Time: 04/09/2017 2:32 PM
[2017-04-09] MEDS: OXYCODONE HCL IR 5 MG TAB (IMMEDIATE RELEASE) PO PRN (17:05)
[2017-04-09] MEDS ORDERED: HYDROmorphone INJ 2 MG/ML SYR/VIAL IV STA (19:11)
[2017-04-09] MEDS ORDERED: HYDROmorphone INJ 2 MG/ML SYR/VIAL IV PRN (19:15)
[2017-04-09] MEDS ORDERED: LORAZEPAM 2 MG/ML 1 ML VIAL IV PRN (19:15)
--- NOTE | 2017-04-09 19:42 | DIAGNOSTIC IMAGING REPORT ---
ULTRASOUND OF THE CAROTID ARTERIES CLINICAL HISTORY: near syncope COMPARISON STUDY: None. TECHNIQUE: Real-time, grayscale, and color Doppler sonography of the carotid arteries was performed. Imaging reviewed in the transverse and longitudinal planes. NASCET criteria was utilized for stenosis calcification. FINDINGS: There is moderate atherosclerotic plaque present most pronounced the level of the right carotid bulb. The peak systolic velocity within the right internal carotid artery is 213 cm/sec. The systolic velocity ratio of right internal to common carotid artery is 2.1. The peak systolic velocity within the left internal carotid artery is 132 cm/sec. The systolic velocity ratio left internal to common carotid artery is 0.7. Antegrade flow is seen in the vertebral arteries. There is elevation of the velocity of the right external carotid artery, indicative of a right external carotid artery stenosis. IMPRESSION: 50-69% stenosis of the right internal carotid artery. Electronically signed by: Andrew Golden M.D. 04/09/2017 7:41 PM Dictated Date/Time: 04/09/2017 7:37 PM
[2017-04-09] MEDS: MULTI-VITAMIN INFUSION INJ 10 ML, THIAMINE HCL INJ 100 MG, FoLIC ACID INJ 1 MG in SODIU... IV SCH (20:13)
[2017-04-09] MEDS: TRAZODONE HCL 50 MG TAB PO SCH (21:00)
[2017-04-09] MEDS: LEVALBUTEROL 1.25MG/3ML NEB INH PRN (22:37)
[2017-04-09] MEDS: CHLORDIAZEPOXIDE 10 MG CAP PO SCH (23:51)
[2017-04-09] MEDS: ALBUTEROL HFA 8 GM INHALER INH PRN (23:51)
[2017-04-09] MEDS: LORAZEPAM 2 MG/ML 1 ML VIAL IV PRN (23:52)
[2017-04-09] MEDS: ALLOPURINOL 100 MG TAB PO SCH (23:57)
[2017-04-09] MEDS: PRAZOSIN HCL 1 MG CAP PO SCH (23:57)
[2017-04-10] VITALS (11 sets, daily range): BP systolic 152–209; BP diastolic 70–115; PULSE 26–123; TEMP 37.1–38; O2SAT 93–96
[2017-04-10] MEDS: LORAZEPAM 2 MG/ML 1 ML VIAL IV PRN ×2 (03:58→05:25)
[2017-04-10] MEDS: ACETAMINOPHEN 500 MG TAB PO PRN (03:59)
[2017-04-10] MEDS: LEVALBUTEROL 1.25MG/3ML NEB INH PRN (04:16)
[2017-04-10 06:48] LABS: HEMATOCRIT 32.6 % (42-52); MEAN CELL VOLUME 93.1 fL (80-100); MEAN CORPUSCULAR HEMOGLOBIN 31.7 pg (25-34); MEAN PLATELET VOLUME 9.3 fL (7.4-10.4); PLATELET COUNT 172 K/uL (130-400); WHITE BLOOD COUNT 14.39 K/uL (4.8-10.8)
[2017-04-10 07:25] LABS: BUN/CREATININE RATIO 12.8 (10-20); CALCIUM 8.3 mg/dl (8.5-10.1); CREATININE 1.3 mg/dl (0.60-1.40); MAGNESIUM 2.1 mg/dl (1.8-2.4); POTASSIUM 4.5 mmol/L (3.5-5.1)
[2017-04-10 07:29] LABS: CHOLESTEROL/HDL RATIO 2.1
[2017-04-10] MEDS ORDERED: HydrALAZINE HCL 20 MG/ML VIAL IV. PRN (08:15)
--- NOTE | 2017-04-10 08:25 | DIAGNOSTIC IMAGING REPORT ---
CHEST ONE VIEW PORTABLE CLINICAL HISTORY: Fever. COMPARISON STUDY: Chest radiograph March 12, 2017 per FINDINGS: Right shoulder arthroplasty is noted. There is elevation of the right hemidiaphragm with gaseous distention of the visualized portions of the colon. There is no evidence of pulmonary edema. The patient is rotated. This exam is compromised by motion artifact. No definite consolidation is identified. IMPRESSION: 1. No consolidation to suggest pneumonia. 2. Elevation of the right hemidiaphragm with mild gaseous distention of visualized portions of the colon. Electronically signed by: Joseluis Jacobsen M.D. 04/10/2017 8:24 AM Dictated Date/Time: 04/10/2017 8:21 AM
[2017-04-10] MEDS: DOCUSATE SODIUM 100 MG CAP PO SCH ×2 (09:00→20:53)
[2017-04-10] MEDS: CYANOCOBALAMIN 100 MCG TAB (VIT B-12) PO SCH (09:00)
[2017-04-10] MEDS: PANTOprazole SOD 40 MG TAB PO SCH (09:00)
[2017-04-10] MEDS: VENLAFAXINE HCL XR 37.5 MG CAPXR PO SCH (09:00)
[2017-04-10] MEDS: DILTIAZEM HCL (TIAzac) 180 MG CAPCR PO SCH (09:00)
[2017-04-10] MEDS: THIAMINE HCL 100 MG TAB PO SCH (09:00)
[2017-04-10] MEDS: CYCLOBENZAPRINE HCL 10 MG TAB PO SCH ×3 (09:00→20:55)
[2017-04-10] MEDS: FLUTICASONE PROPIONATE NA SPR 16 GM BTL SCH ×2 (09:00→20:52)
[2017-04-10] MEDS: MULTIVITAMIN TAB PO SCH (09:00)
[2017-04-10] MEDS: GABAPENTIN 400 MG CAP PO SCH ×3 (09:00→20:55)
[2017-04-10] MEDS: CHLORDIAZEPOXIDE 10 MG CAP PO SCH ×3 (09:00→21:00)
[2017-04-10] MEDS: MULTI-VITAMIN INFUSION INJ 10 ML, THIAMINE HCL INJ 100 MG, FoLIC ACID INJ 1 MG in SODIU... IV SCH (09:01)
[2017-04-10] MEDS ORDERED: ACETAMINOPHEN 1000 MG/100 ML IV IV STA (10:13)
[2017-04-10] MEDS ORDERED: NURSING VERBAL MED ORDER ONE ×2 (10:15→13:45)
[2017-04-10 10:52] LABS: URINE APPEARANCE CLEAR (CLEAR); URINE BILIRUBIN NEG (NEG); URINE COLOR YELLOW; URINE EPITHELIAL CELL AUTO 20-30 /lpf (0-5); URINE NITRITE NEG (NEG); URINE SPECIFIC GRAVITY 1.015 (1.000-1.030); UROBILINOGEN NEG (NEG)
--- NOTE | 2017-04-10 10:52 | Progress Note ---
Orthopedic SOAP Note Subjective Date of Service: Apr 10, 2017. Additional Notes: no c/o, mental status change with confusion, able to be aroused and responds to stimuli Objective shoulder located ,incision benign no erythema no drainage mid typical postop swelling, Date Time Temp Pulse Resp B/P (MAP) Pulse Ox O2 Delivery O2 Flow Rate FiO2 04/10/17 10:01 152/70 (97) 04/10/17 07:57 38.0 123 20 209/115 (146) 94 Room Air 04/10/17 04:30 94 Nasal Cannula 2.0 04/10/17 04:16 116 24 95 Nasal Cannula 2.0 04/10/17 03:30 38.0 119 26 178/90 (119) 95 Nasal Cannula 2.0 04/10/17 00:15 94 Nasal Cannula 2.0 04/10/17 00:02 38.0 108 21 185/92 (123) 93 Nasal Cannula 2.0 04/09/17 22:37 110 22 94 Nasal Cannula 2.0 04/09/17 20:00 94 Nasal Cannula 2.0 04/09/17 20:00 90 24 178/98 (124) 95 Nasal Cannula 2.0 04/09/17 19:48 37.8 94 22 196/96 (129) 94 Nasal Cannula 2.0 04/09/17 16:00 Nasal Cannula 2.0 04/09/17 15:52 37.0 85 20 148/88 (108) 96 Nasal Cannula 2.0 04/09/17 14:20 37.3 82 20 144/79 (100) 97 Nasal Cannula 2.0 04/09/17 13:29 37.4 90 16 146/83 (104) 97 Nasal Cannula 2.0 04/09/17 13:17 36.8 85 16 97 2.0 04/09/17 12:28 85 16 145/85 (105) 97 Nasal Cannula 2.0 04/09/17 11:45 16 103/78 (86) 97 Nasal Cannula 2.0 04/09/17 10:50 16 75/54 (61) 91 Room Air Laboratory Results 24 Hours: Test 04/10/17 06:16 Hematocrit 32.6 % Hemoglobin 11.1 g/dL Assessment POD #2, Rt reversed TSA, biceps tenodesis,alcohol withdrawal ,mental status confusion , febrile not likely shoulder related,hemidiaphragm elevation could be 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 Plan PT/ OT as ordered D/C plans home when mental status and medical conditions stabilized,continue admission for medical management. As per medicine hydromorphone prn ,fever workup in progress
[2017-04-10 10:54] LABS: MANUAL MICROSCOPIC REQUIRED? NO; REVIEW REQ? NO
[2017-04-10] MEDS ORDERED: CEFTRIAXONE SOD INJ 1 GM in DEXTROSE 5% ADD-VANTAGE 50ML 50 ML IV ONE (13:45)
[2017-04-10] MEDS: SODIUM CHLORIDE 0.9% 1000ML 1,000 ML IV SCH (14:37)
--- NOTE | 2017-04-10 15:07 | Progress Note ---
Subjective Date of Service: Apr 10, 2017. Subjective Pt evaluation today including: conversation w/ family, physical exam, chart review, lab review, review of studies, conversation w/ plan consultant, review of inpatient medication list In deep sleeping, vital signs stable, was spiking fever up to 38 Review of Systems Constitutional: + problem reported (he was to obtain because in sleep) Objective Vital Signs Date Time Temp Pulse Resp B/P (MAP) Pulse Ox O2 Delivery O2 Flow Rate FiO2 04/10/17 12:21 37.4 100 18 152/70 (97) 93 04/10/17 12:00 Room Air 2.0 04/10/17 10:01 152/70 (97) 04/10/17 07:57 38.0 123 20 209/115 (146) 94 Room Air 04/10/17 07:30 Room Air 2.0 04/10/17 04:30 94 Nasal Cannula 2.0 04/10/17 04:16 116 24 95 Nasal Cannula 2.0 04/10/17 03:30 38.0 119 26 178/90 (119) 95 Nasal Cannula 2.0 04/10/17 00:15 94 Nasal Cannula 2.0 04/10/17 00:02 38.0 108 21 185/92 (123) 93 Nasal Cannula 2.0 04/09/17 22:37 110 22 94 Nasal Cannula 2.0 04/09/17 20:00 94 Nasal Cannula 2.0 04/09/17 20:00 90 24 178/98 (124) 95 Nasal Cannula 2.0 04/09/17 19:48 37.8 94 22 196/96 (129) 94 Nasal Cannula 2.0 04/09/17 16:00 Nasal Cannula 2.0 04/09/17 15:52 37.0 85 20 148/88 (108) 96 Nasal Cannula 2.0 Physical Exam General Appearance: no apparent distress Eyes: normal inspection, EOMI, sclerae normal ENT: normal ENT inspection, pharynx normal Neck: supple, no adenopathy, thyroid normal, no JVD, no carotid bruits, trachea midline Respiratory/Chest: chest non-tender, normal breath sounds, no respiratory distress, no accessory muscle use, + decreased breath sounds Cardiovascular: regular rate, rhythm, no edema, no gallop, no JVD, no murmur Abdomen: normal bowel sounds, non tender, soft, no organomegaly, no pulsatile mass Extremities: normal range of motion, non-tender, normal inspection, no pedal edema, no calf tenderness, normal capillary refill, pelvis stable 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/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, no motor/sensory deficits, alert, normal mood/affect, oriented x 3 Skin: normal color, warm/dry, no rash Lymphatic: no adenopathy Laboratory Results Last 24 Hours Test 04/10/17 06:16 04/10/17 10:30 04/10/17 13:50 White Blood Count 14.39 K/uL Red Blood Count 3.50 M/uL Hemoglobin 11.1 g/dL Hematocrit 32.6 % Mean Corpuscular Volume 93.1 fL Mean Corpuscular Hemoglobin 31.7 pg Mean Corpuscular Hemoglobin Concent 34.0 g/dl RDW Standard Deviation 46.1 fL RDW Coefficient of Variation 13.6 % Platelet Count 172 K/uL Mean Platelet Volume 9.3 fL Sodium Level 134 mmol/L Potassium Level 4.5 mmol/L Chloride Level 101 mmol/L Carbon Dioxide Level 24 mmol/L Anion Gap 9.0 mmol/L Blood Urea Nitrogen 17 mg/dl Creatinine 1.30 mg/dl Est Creatinine Clear Calc Drug Dose 51.5 ml/min Estimated GFR () 61.4 Estimated GFR (Non- 53.0 BUN/Creatinine Ratio 12.8 Random Glucose 101 mg/dl Calcium Level 8.3 mg/dl Magnesium Level 2.1 mg/dl Triglycerides Level 64 mg/dl Cholesterol Level 136 mg/dl HDL Cholesterol 65 mg/dl LDL Cholesterol, Calculated 58 mg/dl VLDL Cholesterol, Calculated 13 mg/dl Cholesterol/HDL Ratio 2.1 Vitamin B12 Level 1071 pg/mL Folate > 24.00 ng/mL Urine Color YELLOW Urine Appearance CLEAR Urine pH 6.0 Urine Specific [place] 1.015 Urine Protein 2+ Urine Glucose (UA) NEG Urine Ketones NEG Urine Occult Blood 2+ Urine Nitrite NEG Urine Bilirubin NEG Urine Urobilinogen NEG Urine Leukocyte Esterase MODERATE Urine WBC (Auto) 10-30 /hpf Urine RBC (Auto) >30 /hpf Urine Hyaline Casts (Auto) 1-5 /lpf Urine Epithelial Cells (Auto) 20-30 /lpf Urine Bacteria (Auto) NEG Erythrocyte Sedimentation Rate 18 mm/hr C-Reactive Protein 16.30 mg/dl Procalcitonin 3.54 ng/ml Assessment and Plan 76 y/o male with a history of HTN, HLD, CKD stage III, chronic heavy alcohol intake , anxiety/depression and PTSD, gout, and GERD who presents s/p right reversed TSA with Dr. Davila on 04/08 for medical management. -Pain management, DVT prophylaxis, and PT/OT as per primary team Episodes of hypotension on 04/09/2017 with history of HTN- possible from the pain medicine effects, Resolved Possible UTI with fever leukocytosis and positive UA, Rocephin started, follow-up with urine and blood culture results CKD stage III--baseline creatinine around 1.6-1.8. Creatinine is at baseline, Continue follow-up Alcohol which will and agitation was having some delirium yesterday , confirm heavy alcohol intake at home , He has same problem when he had any procedure several years ago , hx of PTSD Currently is on CIWA protocol , Ativan as needed, Librium scheduled Banana bag daily plus IV fluid -Continue trazodone 50 mg PO qhs, venlafaxine 112.5 mg PO qd, and prazosin 2 mg PO qhs Gout -Continue allopurinol 100 mg PO qd GERD -Convert omeprazole to pantoprazole 40 mg PO qd Discussed with nurse about care plan, Continued [facility] stay due to: multiple IV medications needed Discharge planning: home, uncertain
[2017-04-10 16:31] LABS: % FREE PSA 8.7 %; FREE PSA 0.43 ng/ml; PROSTATE SPECIFIC ANTIGEN 4.91 ng/ml (0.000-4.000)
[2017-04-10] MEDS ORDERED: ACETAMINOPHEN 1000 MG/100 ML IV IV PRN (18:00)
[2017-04-10] MEDS: TRAZODONE HCL 50 MG TAB PO SCH (20:54)
[2017-04-10] MEDS: PRAZOSIN HCL 1 MG CAP PO SCH (20:56)
[2017-04-10] MEDS: ALLOPURINOL 100 MG TAB PO SCH (20:56)
[2017-04-10] MEDS: OXYCODONE HCL IR 5 MG TAB (IMMEDIATE RELEASE) PO PRN (21:01)
[2017-04-11] VITALS (10 sets, daily range): BP systolic 104–174; BP diastolic 52–92; PULSE 76–121; TEMP 36.7–37.6; O2SAT 93–96
[2017-04-11] MEDS: SODIUM CHLORIDE 0.9% 1000ML 1,000 ML IV SCH ×2 (03:50→15:00)
[2017-04-11] MEDS: ACETAMINOPHEN 500 MG TAB PO PRN (05:38)
[2017-04-11 06:33] LABS: BASO % 0.1 %; BASO ABS # 0.01 K/uL (0-0.2); COMPLETE YES; EOS % 0.2 %; HEMATOCRIT 31.4 % (42-52); IG% 0.2 %; LYMPH % 7.8 %; LYMPH ABS # 0.74 K/uL (1.2-3.4); MEAN CORPUSCULAR HGB CONC 34.1 g/dl (32-36); MEAN PLATELET VOLUME 9.7 fL (7.4-10.4); MONO % 8.3 %; NEUT % 83.4 %; PLATELET COUNT 176 K/uL (130-400); RED BLOOD COUNT 3.34 M/uL (4.7-6.1); WHITE BLOOD COUNT 9.52 K/uL (4.8-10.8)
[2017-04-11 07:09] LABS: BUN/CREATININE RATIO 13.3 (10-20); CALCIUM 8.7 mg/dl (8.5-10.1); CREATININE 1.4 mg/dl (0.60-1.40); POTASSIUM 4.4 mmol/L (3.5-5.1)
[2017-04-11 07:12] LABS: MAGNESIUM 2.2 mg/dl (1.8-2.4)
[2017-04-11] MEDS: MULTI-VITAMIN INFUSION INJ 10 ML, THIAMINE HCL INJ 100 MG, FoLIC ACID INJ 1 MG in SODIU... IV SCH (08:21)
[2017-04-11] MEDS: FLUTICASONE PROPIONATE NA SPR 16 GM BTL SCH ×2 (08:23→21:00)
[2017-04-11] MEDS: GABAPENTIN 400 MG CAP PO SCH ×3 (08:28→20:59)
[2017-04-11] MEDS: PANTOprazole SOD 40 MG TAB PO SCH (08:28)
[2017-04-11] MEDS: CHLORDIAZEPOXIDE 10 MG CAP PO SCH ×3 (08:28→21:02)
[2017-04-11] MEDS: VENLAFAXINE HCL XR 37.5 MG CAPXR PO SCH (08:29)
[2017-04-11] MEDS: MULTIVITAMIN TAB PO SCH (08:29)
[2017-04-11] MEDS: CYANOCOBALAMIN 100 MCG TAB (VIT B-12) PO SCH (08:29)
[2017-04-11] MEDS: THIAMINE HCL 100 MG TAB PO SCH (08:29)
[2017-04-11] MEDS: DILTIAZEM HCL (TIAzac) 180 MG CAPCR PO SCH (08:30)
[2017-04-11] MEDS: CYCLOBENZAPRINE HCL 10 MG TAB PO SCH ×3 (08:30→21:00)
[2017-04-11] MEDS: DOCUSATE SODIUM 100 MG CAP PO SCH ×2 (08:30→20:58)
--- NOTE | 2017-04-11 08:51 | Progress Note ---
Orthopedic SOAP Note Subjective Date of Service: Apr 11, 2017. Additional Notes: awake alert and mental status returned to baseline Objective dressing dry intact,csm intact Date Time Temp Pulse Resp B/P (MAP) Pulse Ox O2 Delivery O2 Flow Rate FiO2 04/11/17 08:43 37.6 121 16 139/77 (97) 93 04/11/17 04:00 95 Nasal Cannula 2.0 04/11/17 04:00 37.0 110 19 149/52 (84) 95 Nasal Cannula 2.0 04/11/17 00:01 96 Nasal Cannula 2.0 04/11/17 00:00 37.2 106 20 122/76 (91) 96 Nasal Cannula 2.0 04/10/17 20:00 96 Nasal Cannula 2.0 04/10/17 19:29 37.1 108 20 179/92 (121) 96 Nasal Cannula 2.0 04/10/17 16:00 Nasal Cannula 2.0 04/10/17 15:16 37.4 86 20 153/72 (99) 96 Nasal Cannula 2.0 04/10/17 12:21 37.4 100 18 152/70 (97) 93 04/10/17 12:00 Room Air 2.0 04/10/17 10:01 152/70 (97) Laboratory Results 24 Hours: Test 04/11/17 06:00 White Blood Count 9.52 K/uL Red Blood Count 3.34 M/uL Hemoglobin 10.7 g/dL Hematocrit 31.4 % Mean Corpuscular Volume 94.0 fL Mean Corpuscular Hemoglobin 32.0 pg Mean Corpuscular Hemoglobin Concent 34.1 g/dl Platelet Count 176 K/uL Mean Platelet Volume 9.7 fL Neutrophils (%) (Auto) 83.4 % Lymphocytes (%) (Auto) 7.8 % Monocytes (%) (Auto) 8.3 % Eosinophils (%) (Auto) 0.2 % Basophils (%) (Auto) 0.1 % Neutrophils # (Auto) 7.94 K/uL Lymphocytes # (Auto) 0.74 K/uL Monocytes # (Auto) 0.79 K/uL Eosinophils # (Auto) 0.02 K/uL Basophils # (Auto) 0.01 K/uL Assessment POD #3, Rt reversed TSA, biceps tenodesis,alcohol withdrawal ,mental status confusion resolved, febrile not likely shoulder related,hemidiaphragm elevation could be 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 Plan PT/ OT as ordered D/C plans home when mental status and medical conditions stabilized,continue admission for medical management. As per medicine hydromorphone prn ,fever workup in progress
[2017-04-11] MEDS: OXYCODONE HCL IR 5 MG TAB (IMMEDIATE RELEASE) PO PRN ×2 (11:33→19:37)
[2017-04-11] MEDS: ALBUTEROL HFA 8 GM INHALER INH PRN ×2 (11:59→15:16)
[2017-04-11] MEDS ORDERED: CEFTRIAXONE SOD INJ 1 GM in DEXTROSE 5% ADD-VANTAGE 50ML 50 ML IV SCH (13:00)
[2017-04-11] MEDS: MOMETASONE FUROATE 14 PUFF/1 INHALER INH PRN (15:59)
[2017-04-11] MEDS ORDERED: NURSING VERBAL MED ORDER ONE (16:15)
--- NOTE | 2017-04-11 16:49 | Progress Note ---
Subjective Date of Service: Apr 11, 2017. Subjective Pt evaluation today including: conversation w/ patient, conversation w/ family , physical exam, chart review, lab review, review of studies, conversation w/ alliances consultant, review of inpatient medication list Alert and orientated, pain better controlled, now pain is 2 out of 10, has some cough, denies difficulty breathing Review of Systems Constitutional: + fatigue, No fever, No chills, No sweats, No weight loss, No weakness, No problem reported Eyes: No worsening of vision, No eye pain, No redness, No discharge, No diplopia ENT: No hearing loss, No unusual epistaxis, No nasal symptoms, No sore throat, No tinnitus, No dental problems, No trouble swallowing Respiratory: + cough, No sputum, No wheezing, No shortness of breath, No dyspnea on exertion, No dyspnea at rest, No hemoptysis Cardiac: No chest pain, No orthopnea, No PND, No edema, No claudication, No palpitations Abdomen: No pain, No nausea, No vomiting, No diarrhea, No constipation Musculoskeletal: No joint pain, No muscle pain, No swelling, No calf pain Male : No dysuria, No urinary frequency, No incontinence, No nocturia more than once/night, No slowing stream, No hematuria Neurologic: No memory loss, No paralysis, No weakness, No numbness/tingling, No vertigo, No balance problems Psychiatric: No depression symptoms, No anhedonism, No anxiety, No insomnia, No substance abuse Heme: No abnormal bleeding/bruising, No clotting problems, No swollen lymph nodes, No night sweats Endo: No fatigue, No excessive thirst, No excessive urination Skin: No rash, No itch, No new/changing skin lesions, No color change, No bleeding Objective Vital Signs Date Time Temp Pulse Resp B/P (MAP) Pulse Ox O2 Delivery O2 Flow Rate FiO2 04/11/17 16:00 Room Air 04/11/17 15:50 36.8 83 22 136/74 (94) 94 Room Air 04/11/17 12:13 36.7 76 16 150/75 (100) 96 Room Air 04/11/17 12:00 Nasal Cannula 2.0 04/11/17 08:43 37.6 121 16 139/77 (97) 93 04/11/17 07:30 Nasal Cannula 2.0 04/11/17 04:00 95 Nasal Cannula 2.0 04/11/17 04:00 37.0 110 19 149/52 (84) 95 Nasal Cannula 2.0 04/11/17 00:01 96 Nasal Cannula 2.0 04/11/17 00:00 37.2 106 20 122/76 (91) 96 Nasal Cannula 2.0 04/10/17 20:00 96 Nasal Cannula 2.0 04/10/17 19:29 37.1 108 20 179/92 (121) 96 Nasal Cannula 2.0 Physical Exam General Appearance: WD/WN, no apparent distress Eyes: normal inspection, PERRL, EOMI, sclerae normal ENT: normal ENT inspection, hearing grossly normal, pharynx normal Neck: supple, no adenopathy, thyroid normal, no JVD, no carotid bruits, trachea midline Respiratory/Chest: chest non-tender, normal breath sounds, no respiratory distress, no accessory muscle use, + decreased breath sounds Cardiovascular: regular rate, rhythm, no edema, no gallop, no JVD, no murmur Abdomen: normal bowel sounds, non tender, soft, no organomegaly, no pulsatile mass Extremities: normal range of motion, non-tender, normal inspection, no pedal edema, no calf tenderness, normal capillary refill, pelvis stable Neurologic/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, no motor/sensory deficits, alert, normal mood/affect, oriented x 3 Skin: normal color, warm/dry, no rash Lymphatic: no adenopathy Laboratory Results Last 24 Hours Test 04/11/17 06:00 White Blood Count 9.52 K/uL Red Blood Count 3.34 M/uL Hemoglobin 10.7 g/dL Hematocrit 31.4 % Mean Corpuscular Volume 94.0 fL Mean Corpuscular Hemoglobin 32.0 pg Mean Corpuscular Hemoglobin Concent 34.1 g/dl Platelet Count 176 K/uL Mean Platelet Volume 9.7 fL Neutrophils (%) (Auto) 83.4 % Lymphocytes (%) (Auto) 7.8 % Monocytes (%) (Auto) 8.3 % Eosinophils (%) (Auto) 0.2 % Basophils (%) (Auto) 0.1 % Neutrophils # (Auto) 7.94 K/uL Lymphocytes # (Auto) 0.74 K/uL Monocytes # (Auto) 0.79 K/uL Eosinophils # (Auto) 0.02 K/uL Basophils # (Auto) 0.01 K/uL RDW Standard Deviation 47.6 fL RDW Coefficient of Variation 13.8 % Immature Granulocyte % (Auto) 0.2 % Immature Granulocyte # (Auto) 0.02 K/uL Sodium Level 136 mmol/L Potassium Level 4.4 mmol/L Chloride Level 102 mmol/L Carbon Dioxide Level 24 mmol/L Anion Gap 10.0 mmol/L Blood Urea Nitrogen 19 mg/dl Creatinine 1.40 mg/dl Est Creatinine Clear Calc Drug Dose 47.8 ml/min Estimated GFR () 56.2 Estimated GFR (Non- 48.5 BUN/Creatinine Ratio 13.3 Random Glucose 82 mg/dl Calcium Level 8.7 mg/dl Magnesium Level 2.2 mg/dl Assessment and Plan 76 y/o male with a history of HTN, HLD, CKD stage III, chronic heavy alcohol intake , anxiety/depression and PTSD, gout, and GERD who presents s/p right reversed TSA with Dr. Davila on 04/08 for medical management. POD #3, Rt reversed TSA, biceps tenodesis,alcohol withdrawal ,mental status confusion resolved, Pain management, DVT prophylaxis, and PT/OT as per primary team Episodes of hypotension on 04/09/2017 with history of HTN- possible from the pain medicine effects, Resolved Possible UTI with fever leukocytosis and positive UA, Rocephin started, follow-up with urine and blood culture results, will continue for another 24 hours until blood culture coming back, then could consider a switch to oral CKD stage III--baseline creatinine around 1.6-1.8. Creatinine is at baseline, Continue follow-up Alcohol which will and agitation was having some delirium yesterday , confirm heavy alcohol intake at home , He has same problem when he had any procedure several years ago , hx of PTSD Significant improves Currently is on CIWA protocol , Ativan as needed, Librium scheduled Banana bag daily plus IV fluid -Continue trazodone 50 mg PO qhs, venlafaxine 112.5 mg PO qd, and prazosin 2 mg PO qhs Gout -Continue allopurinol 100 mg PO qd GERD -Convert omeprazole to pantoprazole 40 mg PO qd Transfer to med/surg because of patient's condition significantly improved, hemodynamically stable Discussed with nurse about care plan, Continued [facility] stay due to: multiple IV medications needed Discharge planning: home, uncertain
[2017-04-11] MEDS: MOMETASONE FUROATE 14 PUFF/1 INHALER INH SCH (20:57)
[2017-04-11] MEDS: ALLOPURINOL 100 MG TAB PO SCH (20:57)
[2017-04-11] MEDS: PRAZOSIN HCL 1 MG CAP PO SCH (20:58)
[2017-04-11] MEDS: TRAZODONE HCL 50 MG TAB PO SCH (21:00)
[2017-04-12] MEDS: ALBUTEROL HFA 8 GM INHALER INH PRN (00:07)
[2017-04-12 05:37] LABS: BASO % 0.2 %; BASO ABS # 0.01 K/uL (0-0.2); COMPLETE YES; EOS % 2.5 %; HEMATOCRIT 27.8 % (42-52); IG% 0.2 %; LYMPH % 13.4 %; LYMPH ABS # 0.85 K/uL (1.2-3.4); MEAN CELL VOLUME 93.6 fL (80-100); MEAN CORPUSCULAR HGB CONC 33.1 g/dl (32-36); MEAN PLATELET VOLUME 8.9 fL (7.4-10.4); MONO % 10.4 %; NEUT % 73.3 %; PLATELET COUNT 174 K/uL (130-400); RED BLOOD COUNT 2.97 M/uL (4.7-6.1); WHITE BLOOD COUNT 6.36 K/uL (4.8-10.8)
[2017-04-12 06:17] LABS: BUN/CREATININE RATIO 13.4 (10-20); CALCIUM 8.3 mg/dl (8.5-10.1); CREATININE 1.5 mg/dl (0.60-1.40); MAGNESIUM 2.3 mg/dl (1.8-2.4); POTASSIUM 4.1 mmol/L (3.5-5.1)
--- NOTE | 2017-04-12 07:21 | Orthopedic Progress Note ---
Orthopedic Progress Note Date of Service Apr 12, 2017. Subjective Post OP Day: 4 Reports: feeling well, pain controlled w PO medications, Denies: complaints, chest pain, SOB, nausea / vomiting, light headedness, calf pain Objective N/V intact, capillary refill less than 2 sec., dressing C/D/I, incision C/D/I, A &O x3, toes mobile Continues to do well, not confused, eager to go home. Date Time Temp Pulse Resp B/P (MAP) Pulse Ox O2 Delivery O2 Flow Rate FiO2 04/12/17 07:13 Room Air 04/12/17 02:06 Room Air 04/11/17 22:47 36.9 99 16 104/66 (79) 93 Room Air 04/11/17 20:00 111/74 (86) 04/11/17 17:30 36.9 94 18 174/92 (119) 93 Room Air 04/11/17 16:50 36.8 83 22 94 2.0 04/11/17 16:00 Room Air 04/11/17 15:50 36.8 83 22 136/74 (94) 94 Room Air 04/11/17 12:13 36.7 76 16 150/75 (100) 96 Room Air 04/11/17 12:00 Nasal Cannula 2.0 04/11/17 08:43 37.6 121 16 139/77 (97) 93 04/11/17 07:30 Nasal Cannula 2.0 Laboratory Results 24 Hours: Test 04/12/17 05:12 White Blood Count 6.36 K/uL Red Blood Count 2.97 M/uL Hemoglobin 9.2 g/dL Hematocrit 27.8 % Mean Corpuscular Volume 93.6 fL Mean Corpuscular Hemoglobin 31.0 pg Mean Corpuscular Hemoglobin Concent 33.1 g/dl Platelet Count 174 K/uL Mean Platelet Volume 8.9 fL Neutrophils (%) (Auto) 73.3 % Lymphocytes (%) (Auto) 13.4 % Monocytes (%) (Auto) 10.4 % Eosinophils (%) (Auto) 2.5 % Basophils (%) (Auto) 0.2 % Neutrophils # (Auto) 4.67 K/uL Lymphocytes # (Auto) 0.85 K/uL Monocytes # (Auto) 0.66 K/uL Eosinophils # (Auto) 0.16 K/uL Basophils # (Auto) 0.01 K/uL Assessment & Plan Assessment: POD #4, Rt reversed TSA, biceps tenodesis,alcohol withdrawal ,mental status confusion resolved, febrile not likely shoulder related,hemidiaphragm elevation could be 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 Plan: PT/ OT as ordered D/C plans home when ok w medicine As per medicine patient was on hydrocodone at home and wishes to continue with that for pain control Inhouse Planning Pain Management: Morphine, PO Tylenol, Oxy IR DVT Prophylaxis: SCDs Discharge Planning Discharge Planning: home Pain Management: [place]
[2017-04-12] MEDS ORDERED: HYDR-5688 PO (07:27)
--- NOTE | 2017-04-12 07:28 | Discharge Instructions ---
Discharge Instructions Date of Service Apr 12, 2017. Admission Reason for Admission: Right Shoulder Rotator Cuff Arthropathy Discharge Discharge Diagnosis / Problem: Right shoulder reversed TSA Discharge Goals Goal(s): Improve function Activity Recommendations Activity Limitations: as noted below . Instructions / Follow-Up Instructions / Follow-Up ACTIVITY RECOMMENDATIONS: SELF CARE INSTRUCTIONS AFTER TOTAL SHOULDER ARTHROPLASTY REVERSE A. You may do daily exercises as taught in physical therapy while in hospital. No lifting with the operative arm. B. You are to wear your sling/immobilizer at all times EXCEPT when performing your daily exercises and for hygiene purposes. C. You may perform dry, daily dressing changes. Please keep your incision covered. You may shower 48 hours after surgery. Do not apply soap or any ointment/ lotions directly over incision. Do not soak incision in bath tub/swimming pool. D. You may use ice as needed to operative shoulder. SPECIAL CARE INSTRUCTIONS: VERY IMPORTANT TO READ AND REVIEW A. There are a few signs you need to watch for after you are home. Call [facility] at [phone] if you experience any of the followin. Increased severe shoulder pain. Some pain is expected especially when you exercise. 2. Increased swelling in you shoulder or arm; pain or swelling in either upper extremity. 3. Any fluid drainage from the incision. 4. Shortness of breath or chest pain. B. Please call [facility] at [phone] if you have any questions or concerns about your operation or recovery. C. Call your physician if: 1. Temperature is greater than 101 degrees (F). 2. Pain is not relieved by prescribed pain medications. 3. Increase drainage or redness from incision. 4. Unanswered questions or concerns. FOLLOW UP VISIT: Please call [facility] at [phone] to schedule a follow up appointment with Dr. Davila or his PA in 12-14 days from your surgery date. Current Hospital Diet Patient's current hospital diet: Regular Diet Discharge Diet Recommended Diet: Regular Diet Procedures Procedures Performed: Right reverse total shoulder arthroplasty Pending Studies Studies pending at discharge: no Laboratory Results Hemoglobin A1c Test 03/12/17 11:10 Range/Units Estimated Average Glucose 108 mg/dl Hemoglobin A1c 5.4 4.5-5.6 % Lipid Panel Test 04/10/17 06:16 Range/Units Triglycerides Level 64 0-150 mg/dl Cholesterol Level 136 0-200 mg/dl HDL Cholesterol 65 mg/dl Cholesterol/HDL Ratio 2.1 LDL Cholesterol, Calculated 58 mg/dl Medical Emergencies . Who to Call and When: Medical Emergencies: If at any time you feel your situation is an emergency, please call 911 immediately. . Non-Emergent Contact Non-Emergency issues call your: Primary Care Provider . "Provider Documentation" section prepared by Chaparro Ann. . VTE Core Measure Inpt VTE Proph given/why not?: Michael Larson SCD's PA Drug Monitoring Program Search Results: patient reviewed within database, no issues identified
[2017-04-12 07:37] VITALS: BP 163/102; PULSE 109; TEMP 37.1; O2SAT 95
[2017-04-12] MEDS: GABAPENTIN 400 MG CAP PO SCH (08:16)
[2017-04-12] MEDS: DILTIAZEM HCL (TIAzac) 180 MG CAPCR PO SCH (08:16)
[2017-04-12] MEDS: CYANOCOBALAMIN 100 MCG TAB (VIT B-12) PO SCH (08:16)
[2017-04-12] MEDS: THIAMINE HCL 100 MG TAB PO SCH (08:16)
[2017-04-12] MEDS: DOCUSATE SODIUM 100 MG CAP PO SCH (08:16)
[2017-04-12] MEDS: PANTOprazole SOD 40 MG TAB PO SCH (08:16)
[2017-04-12] MEDS: MULTIVITAMIN TAB PO SCH (08:16)
[2017-04-12] MEDS: CYCLOBENZAPRINE HCL 10 MG TAB PO SCH (08:16)
[2017-04-12] MEDS: MOMETASONE FUROATE 14 PUFF/1 INHALER INH SCH (08:17)
[2017-04-12] MEDS: VENLAFAXINE HCL XR 37.5 MG CAPXR PO SCH (08:17)
[2017-04-12] MEDS: FLUTICASONE PROPIONATE NA SPR 16 GM BTL SCH (08:17)
[2017-04-12] MEDS: CHLORDIAZEPOXIDE 10 MG CAP PO SCH (08:19)
[2017-04-12] MEDS: MULTI-VITAMIN INFUSION INJ 10 ML, THIAMINE HCL INJ 100 MG, FoLIC ACID INJ 1 MG in SODIU... IV SCH (08:19)
[2017-04-12 08:27] VITALS: BP 163/102; PULSE 109; TEMP 37.1; O2SAT 95
[2017-04-12] MEDS: OXYCODONE HCL IR 5 MG TAB (IMMEDIATE RELEASE) PO PRN (08:37)
[2017-04-12 09:12] VITALS: BP 166/85; PULSE 109
--- NOTE | 2017-04-12 16:14 | OPERATIVE REPORT ---
DATE OF OPERATION: 04/08/2017 HISTORY OF PRESENT ILLNESS AND INDICATION FOR PROCEDURE: A 76-year-old male with history of prior rotator cuff surgery. He has had chronic progressive pain in his right shoulder many years later after his surgery. His exam demonstrates he has a small mini open lateral incision from previous repair surgery. He has limited function overhead and rotator cuff weakness and his radiographs demonstrate significant proximal migration of the humerus consistent with chronic rotator cuff arthropathy. PREOPERATIVE DIAGNOSES: Right shoulder chronic rotator cuff arthropathy, failed rotator cuff repair over time. POSTOPERATIVE DIAGNOSES: Same with advanced grade 4 degenerative joint disease, glenohumeral joint with posterior superior glenoid wear and chronic ruptured biceps tendon. PROCEDURE: Right reversed total shoulder arthroplasty. SURGEON: Dr. Davila. DOG GROOMER: Chaparro Ann PA-C ANESTHESIA: Regional block general. OPERATIVE PROCEDURE: The patient was taken to the operating room and anesthetized under regional block and general anesthetic. He was positioned on the operating room table in about a 40 degree beach chair position. A towel roll was placed in the medial border of his right scapula. He was translated to right side of the bed, so his shoulder could be manipulated off the bed as necessary. The head was placed on a foam headrest. A protective eyewear placed. TEDs and SCDs placed. Marrero catheter placed. His right shoulder exam demonstrated that he had passive forward elevation about 160 degrees, his abduction was 80 and his external rotation was 60. He had crepitation with range of motion. His right shoulder was sterilely prepped and draped with ChloraPrep. An anterior deltopectoral approach was performed. Skin was incised sharply. Subcutaneous flaps were elevated. The cephalic vein was dissected out and retracted laterally with the deltoid. A deltopectoral interval was developed down to the clavipectoral fascia which was divided at the lateral margin of the strap muscles, extended up to the CA ligament which was preserved. There was a large fluid collection from the bursa and biceps tendon sheath. The subscapularis tendon had tendinopathic changes but about three-quarters of the subscap tendon looked to be intact. There was chronic rotator cuff tear with a few strands of rotator cuff tissue between the supraspinatus and the teres minor only. This was thin tendinopathic tissue and he had areas of full thickness loss in posterior to that and anterior to the strip of tendon tissue. This strip was released and revealed grade 4 DJD in the humeral head. The biceps tendon was chronically ruptured and retracted and now identified the bicipital groove which did have some tenosynovitis coming from the joint into a fairly large fluid collection in that area as well. This was resected and all bursa tissue was resected. The circumflex vessels were identified, tied off with silk ties and divided laterally. The subscap muscle fibers were split at the level of the circumflex vessels leaving a cuff of tissue to protect the axillary nerve inferiorly. A Kitner elevator was used to reflect these inferior fibers off the capsule and a blunt Hohmann retractor was placed to protect the axillary nerve which was identified with a tug test. The subscapularis tendon tissue was then taken down via the bicipital groove in a subperiosteal dissection off the lesser tuberosity and releasing the capsule off the neck of the humerus. A traction suture was placed into the free end of the subscapularis tendon and capsule. The humeral head was gradually externally rotated as we released the capsule around the neck of the humerus. There were some small osteophytes that were resected. The patient had very large humeral head. The humeral head was retracted posterior to the glenoid with a Fukuda retractor revealing that about 3/4 of the glenoid to the posterior and superior aspect was completely down to eburnated bone. There was some articular cartilage anteriorly and inferiorly. The glenoid labrum was resected circumferentially. The remnants of the anterior rotator cuff were resected. An anterior inferior, posterior inferior capsular release was performed with electrocautery on bone and a Crockett elevator and the humerus was exposed with extension and external rotation. I used the Tornier flex shoulder system reversed total shoulder replacement system using the Aequalis reversed II glenoid components. I placed in the alignment guide into the humeral head and we cut the humeral surface at 20 degrees of retroversion. The humeral head fragment was removed and then the humerus was retracted posterior to the glenoid. With the glenoid fully exposed, it was sized for a 29 mm baseplate. The central drill hole was made, the reamer for the baseplate was used placing 10 degrees of inferior tilt on the direction of the reaming and then the central drill hole was widened and the 29 mm baseplate was impacted into position. I placed two 23 mm anterior and posterior compression screws and a superior and inferior locking screws of 29 and 32 mm respectively with excellent fixation of the baseplate. A fan reamer was used to ream for the 36 mm glenoid component. We used a +2 eccentric offset, placed the eccentric offset inferiorly to improve inferior coverage. The glenosphere was impacted on to the base plate and then the screw was tightened. After further copious irrigation with antibiotic solution and bacitracin, attention was taken to the humeral preparation which was prepared by using a starter awl followed by broaches up to a size 8; however, when using the final trial broaches, there was a tight metaphysial fit at 7, so we had to stop at size 7 even though the distal canal could accommodate an 8. The angle was a B angle. Then, we did a trial reduction with a +0 high offset trial which gave the best coverage. Then, we used a 6 mm insert and that gave good stability through full range of motion, there was no shuck and the shoulder was stable. The trials were removed and 3 drill holes were made into the hard bone in the bicipital groove and transosseous #5 FiberWire sutures x3 were placed. Then the canal was irrigated and then the final components were assembled which were the long stem 7 B Ascend Flex stem assembled to the +0 thickness, high offset reversed tray assembled to the 36 mm, +6 reversed insert. This implant was then impacted into the humerus with tight pressfit. This was reduced to the glenosphere and stability was verified. The subscapularis was repaired with the #5 FiberWire sutures using Ru-Doc suture technique. Soft tissue lateral row repair was performed with [id number] #2 FiberWire sutures. The repair was secure through 160 degrees of forward elevation, 90 degrees of abduction and 50 degrees of external rotation without tension on the repair. The pectoralis was repaired with [id number] #2 FiberWire. Wound was copiously irrigated again. The deltopectoral interval was closed with [id number] #1 Vicryl sutures. Subcutaneous tissues closed with interrupted 2-0 Vicryl sutures, skin closed with mari. Sterile dressings were applied. We did do the closure over a Hemovac drain. The patient tolerated the procedure well. OLGA Hernandez was my electrician station assistant. He functioned as electrician station assistant for the entire procedure. He assisted in patient positioning, prepping, draping, arm positioning, instrument management, suture management, soft tissue retraction during the reconstruction and he did perform the final subcutaneous and skin closure. He will participate in the postoperative care of the patient. I attest to the content of the Intraoperative Record and any orders documented therein. Any exceptions are noted below. DENIZ
--- NOTE | 2017-04-12 17:29 | Progress Note ---
Subjective Date of Service: Apr 12, 2017. Subjective pt was seen only with some shoulder pain, no reminent of possible alcohol withdrawal, for discharge by ortho, minor hypertension but not consistent, does have follow up apt with Dr Patel in one week Review of Systems Constitutional: No fever, No chills, No weakness, No fatigue Objective Vital Signs Date Time Temp Pulse Resp B/P (MAP) Pulse Ox O2 Delivery O2 Flow Rate FiO2 04/12/17 09:12 109 04/12/17 08:27 37.1 109 18 95 Room Air 04/12/17 07:37 37.1 109 18 163/102 (122) 95 Room Air 04/12/17 07:13 Room Air 04/12/17 02:06 Room Air 04/11/17 22:47 36.9 99 16 104/66 (79) 93 Room Air 04/11/17 20:00 111/74 (86) 04/11/17 17:30 36.9 94 18 174/92 (119) 93 Room Air Physical Exam General Appearance: WD/WN, + mild distress Eyes: PERRL, EOMI Cardiovascular: regular rate, rhythm, no murmur Laboratory Results Last 24 Hours Test 04/12/17 05:12 White Blood Count 6.36 K/uL Red Blood Count 2.97 M/uL Hemoglobin 9.2 g/dL Hematocrit 27.8 % Mean Corpuscular Volume 93.6 fL Mean Corpuscular Hemoglobin 31.0 pg Mean Corpuscular Hemoglobin Concent 33.1 g/dl Platelet Count 174 K/uL Mean Platelet Volume 8.9 fL Neutrophils (%) (Auto) 73.3 % Lymphocytes (%) (Auto) 13.4 % Monocytes (%) (Auto) 10.4 % Eosinophils (%) (Auto) 2.5 % Basophils (%) (Auto) 0.2 % Neutrophils # (Auto) 4.67 K/uL Lymphocytes # (Auto) 0.85 K/uL Monocytes # (Auto) 0.66 K/uL Eosinophils # (Auto) 0.16 K/uL Basophils # (Auto) 0.01 K/uL RDW Standard Deviation 46.2 fL RDW Coefficient of Variation 13.5 % Immature Granulocyte % (Auto) 0.2 % Immature Granulocyte # (Auto) 0.01 K/uL Sodium Level 138 mmol/L Potassium Level 4.1 mmol/L Chloride Level 105 mmol/L Carbon Dioxide Level 25 mmol/L Anion Gap 8.0 mmol/L Blood Urea Nitrogen 20 mg/dl Creatinine 1.50 mg/dl Est Creatinine Clear Calc Drug Dose 44.6 ml/min Estimated GFR () 51.7 Estimated GFR (Non- 44.6 BUN/Creatinine Ratio 13.4 Random Glucose 93 mg/dl Calcium Level 8.3 mg/dl Magnesium Level 2.3 mg/dl Assessment and Plan 76 M with shoulder surgery some concern for post op alcohol withdrawal but short lived, hypertension maybe related to pain or IVF Continued [facility] stay due to: multiple IV medications needed Discharge planning: home, uncertain
--- NOTE | 2017-04-20 21:44 | DISCHARGE SUMMARY ---
HISTORY OF PRESENT ILLNESS: This is a 76-year-old male patient of Dr. Davila's complaining of chronic right shoulder pain and weakness. He has been diagnosed with end-stage osteoarthritis and insufficient rotator cuff and wished to proceed with a reversed total shoulder arthroplasty on the right. PAST MEDICAL HISTORY: Hypertension, anxiety, asthma, bruising, spine problems, neck problems, sciatica, acid reflux and alcohol abuse. POSTOPERATIVE COURSE: The patient underwent a right reversed total shoulder arthroplasty on 04/08/2017. Postoperatively, he was followed closely with medical consultation, pain control, and physical therapy. He did have some postoperative confusion. This was attributed to posttraumatic stress disorder and with alcohol withdrawal. The patient had the correct amount of banana IV and Ativan. He also tested positive for UTI. He was started on Rocephin. Postoperative day #3 his confusion did resolve, patient was at baseline. We will continue his Rocephin postoperatively per medical consultation and follow up with his family physician for his posttraumatic stress disorder and his alcohol withdrawal. PHYSICAL EXAMINATION: On discharge, right shoulder incision was clean, dry and intact. [place] were intact. Skin edges were approximated well. There was no redness or drainage. Neurologically and neurovascularly he is intact in his right upper extremity. DIAGNOSES: Status post right reverse total shoulder arthroplasty. He had postoperative confusion, probably secondary to alcohol withdrawal and posttraumatic stress disorder as well as a urinary tract infection. This was all resolved after a course of Rocephin, banana bags and the appropriate course of antianxiety medication. PLAN: The patient was discharged home with outpatient physical therapy. He will continue his preadmission medications as well as pain control. He will follow up with his family physician for his multiple medical problems. The patient will follow up with Dr. Davila as scheduled for an outpatient visit. DENIZ
[2017-08-12] MEDS ORDERED: MOME6000 INH (08:15)
[2017-08-12] MEDS ORDERED: LISI-787 PO (08:15)
[2017-08-12] MEDS ORDERED: MOME220A INH (08:15)
[2017-08-12] MEDS ORDERED: EPP3/2 IM (08:15)
[2017-08-12] MEDS ORDERED: ALLO100T PO (08:15)
[2017-08-12] MEDS ORDERED: VNTHFA/IN INH (08:15)
[2017-08-12] MEDS ORDERED: LEVA45AE NEB (08:15)
[2017-08-12] MEDS ORDERED: NRN600 PO (08:15)
[2017-08-12] MEDS ORDERED: GARL500C5 PO (08:15)
== END 2017-04-12 10:25 | disposition home or self-care (01) | DRG 483 ==
LOC: C.ACU 06:50 → C.3E 07:30 → ENRESERV 13:32 → C.2T 04-09 14:05 → EDBEDREQSVC 04-11 16:51 → ENRESERV 04-11 16:55 → C.3E 04-11 17:33
PROVIDERS: ADMIT Orthopaedic Surgery Sports Medicine; ATTEND Orthopaedic Surgery Sports Medicine
PROC: 0LQ10ZZ Repair Right Shoulder Tendon, Open Approach (ICD-10-PCS; principal; 2017-04-08 09:15)
PROC: 0RRJ00Z Replacement of Right Shoulder Joint with Reverse Ball and Socket Synthetic Substitute, Open Approach (ICD-10-PCS; principal; 2017-04-08 09:15)
DX: M19.011 Primary osteoarthritis, right shoulder (principal); N39.0 Urinary tract infection, site not specified; F10.231 Alcohol dependence with withdrawal delirium; M75.101 Unspecified rotator cuff tear or rupture of right shoulder, not specified as traumatic; I95.9 Hypotension, unspecified; K21.9 Gastro-esophageal reflux disease without esophagitis; I12.9 Hypertensive chronic kidney disease with stage 1 through stage 4 chronic kidney disease, or unspecified chronic kidney disease; N18.3 Chronic kidney disease, stage 3 (moderate); M10.9 Gout, unspecified; E78.5 Hyperlipidemia, unspecified; R33.9 Retention of urine, unspecified; F41.9 Anxiety disorder, unspecified; F32.9 Major depressive disorder, single episode, unspecified; J45.909 Unspecified asthma, uncomplicated; Z79.899 Other long term (current) drug therapy; Z87.891 Personal history of nicotine dependence

== ENCOUNTER → 2017-05-27 | Outpatient (CLI) | payer OTHER ==
[~2017-05-27] MED LIST changes: -ACET-1256 PO; -ACETAMINOPHEN 500 MG TAB PO SCH; +ALLO100T PO; -CEFAZOLIN 1000MG/55 ML D5W 55 ML IV SCH; -CeleBREX 200 MG CAP PO SCH; -DEXAMETHASONE 4 MG TAB PO SCH; -DEXAMETHASONE SOD INJ 4 MG/ML VIAL ONE; +EPP3/2 IM; -FAMOTIDINE 20 MG TAB PO SCH; -GABAPENTIN 300 MG CAP PO SCH; +GARL500C5 PO; -LACTATED RINGER'S 1000ML IV SCH; +LEVA45AE NEB; +LISI-787 PO; -METOCLOPRAMIDE HCL 10 MG TAB PO SCH; +MOME220A INH; +MOME6000 INH; +NRN600 PO; -ROPIVACAINE 0.5% 5 MG/ML 30 ML VIAL ONE; +VNTHFA/IN INH
[2017-05-27 11:49] LABS: BASO % 0.2 %; BASO ABS # 0.01 K/uL (0-0.2); COMPLETE YES; EOS % 5.5 %; HEMATOCRIT 37.3 % (42-52); IG% 0.2 %; LYMPH % 26.9 %; LYMPH ABS # 1.66 K/uL (1.2-3.4); MEAN CELL VOLUME 95.2 fL (80-100); MEAN CORPUSCULAR HEMOGLOBIN 32.7 pg (25-34); MEAN CORPUSCULAR HGB CONC 34.3 g/dl (32-36); MEAN PLATELET VOLUME 9.7 fL (7.4-10.4); MONO % 8.3 %; NEUT % 58.9 %; PLATELET COUNT 315 K/uL (130-400); RED BLOOD COUNT 3.92 M/uL (4.7-6.1); WHITE BLOOD COUNT 6.16 K/uL (4.8-10.8)
[2017-05-27 13:20] LABS: ALT/SGPT 16 U/L (12-78); BLOOD UREA NITROGEN 24 mg/dl (7-18); BUN/CREATININE RATIO 16.3 (10-20); CALCIUM 9.8 mg/dl (8.5-10.1); CARBON DIOXIDE 28 mmol/L (21-32); CHLORIDE 104 mmol/L (98-107); CHOLESTEROL 201 mg/dl (0-200); GLUCOSE 87 mg/dl (70-99); POTASSIUM 4.4 mmol/L (3.5-5.1); SODIUM 140 mmol/L (136-145); TRIGLYCERIDES 106 mg/dl (0-150); VERY LOW DENSITY LIPOPROT CALC 21 mg/dl
[2017-05-27 13:25] LABS: ALB/GLOB RATIO 0.8 (0.9-2); ALKALINE PHOSPHATASE 64 U/L (45-117); AST/SGOT 13 U/L (15-37); CHOLESTEROL/HDL RATIO 3.9; HDL CHOLESTEROL 51 mg/dl; LDL CHOLESTEROL CALCULATED 129 mg/dl
== END | disposition home or self-care (01) ==
LOC: C.LABBFT 07:30
PROVIDERS: ATTEND Internal Medicine
DX: I65.29 Occlusion and stenosis of unspecified carotid artery (principal); N18.3 Chronic kidney disease, stage 3 (moderate)

== ENCOUNTER → 2017-06-07 | Outpatient (CLI) | payer OTHER ==
[2017-06-07 10:37] LABS: PATIENT HEIGHT 182.9 cm
--- NOTE | 2017-06-07 11:06 | DIAGNOSTIC IMAGING REPORT ---
RENAL ULTRASOUND CLINICAL HISTORY: Chronic kidney disease, stage 3 COMPARISON STUDY: None. TECHNIQUE: Sonography of the kidneys and the urinary bladder was performed. FINDINGS: The right kidney measures 10.6 x 5.7 x 5.2 cm and the left measures 12.5 x 6.2 x 5.3 cm. There is no hydronephrosis. Renal echogenicity is increased. There is mild renal cortical thinning. Both ureteral jets were identified. A diverticulum arising from the right aspect of the bladder was noted, measuring approximately 3 cm. IMPRESSION: 1. No hydronephrosis. 2. No renal calculi identified. 3. Mild renal cortical thinning and increased renal echogenicity. 4. Diverticulum arising from the right lateral aspect of the bladder. Electronically signed by: Joseluis Jacobsen M.D. 06/07/2017 11:05 AM Dictated Date/Time: 06/07/2017 11:03 AM
[2017-06-07 14:08] LABS: HEMATOCRIT 38.2 % (42-52); MEAN CELL VOLUME 96.7 fL (80-100); MEAN CORPUSCULAR HEMOGLOBIN 31.9 pg (25-34); MEAN PLATELET VOLUME 10.1 fL (7.4-10.4); PLATELET COUNT 239 K/uL (130-400); RED BLOOD COUNT 3.95 M/uL (4.7-6.1)
[2017-06-07 14:33] LABS: BUN/CREATININE RATIO 13.8 (10-20); CALCIUM 9.4 mg/dl (8.5-10.1); CREATININE 1.9 mg/dl (0.60-1.40); POTASSIUM 4.4 mmol/L (3.5-5.1)
[2017-06-07 14:39] LABS: URINE TOTAL PROTEIN 47.2 mg/dl (0-11.9)
[2017-06-07 14:47] LABS: URINE TOTAL PROTEIN 34.1 mg/dl (0-11.9)
[2017-06-07 14:51] LABS: CREATININE 1.9 mg/dl (0.6-1.4)
[2017-06-07 14:57] LABS: URINE APPEARANCE CLEAR (CLEAR); URINE BILIRUBIN NEG (NEG); URINE COLOR YELLOW; URINE EPITHELIAL CELL AUTO 0-5 /lpf (0-5); URINE NITRITE NEG (NEG); URINE PH 5.5 (4.5-7.5); URINE SPECIFIC GRAVITY 1.011 (1.000-1.030); UROBILINOGEN NEG (NEG)
[2017-06-07 15:02] LABS: MANUAL MICROSCOPIC REQUIRED? NO; REVIEW REQ? NO
== END | disposition home or self-care (01) ==
LOC: C.ULTRBC 10:05
PROVIDERS: ATTEND Physician Assistant Medical
DX: N18.3 Chronic kidney disease, stage 3 (moderate) (principal); I10 Essential (primary) hypertension; D64.9 Anemia, unspecified; N32.3 Diverticulum of bladder

== ENCOUNTER → 2017-08-04 | Outpatient (CLI) | payer OTHER ==
[~2017-08-04] MED LIST changes: -ALLO100T PO; -EPP3/2 IM; -GARL500C5 PO; -LEVA45AE NEB; -LISI-787 PO; -MOME220A INH; -MOME6000 INH; -NRN600 PO; -VNTHFA/IN INH
[2017-08-04 12:28] LABS: HEMATOCRIT 39.1 % (42-52); MEAN CELL VOLUME 91.6 fL (80-100); MEAN CORPUSCULAR HEMOGLOBIN 31.4 pg (25-34); MEAN CORPUSCULAR HGB CONC 34.3 g/dl (32-36); MEAN PLATELET VOLUME 10.1 fL (7.4-10.4); PLATELET COUNT 219 K/uL (130-400); RED BLOOD COUNT 4.27 M/uL (4.7-6.1); WHITE BLOOD COUNT 6.06 K/uL (4.8-10.8)
[2017-08-04 13:00] LABS: URINE PROTIEN/CREAT RATIO 1.7 (0-0.2); URINE TOTAL PROTEIN 34.9 mg/dl (0-11.9)
[2017-08-04 13:04] LABS: BLOOD UREA NITROGEN 27 mg/dl (7-18); CALCIUM 9.2 mg/dl (8.5-10.1); CARBON DIOXIDE 25 mmol/L (21-32); CHLORIDE 103 mmol/L (98-107); GLUCOSE 90 mg/dl (70-99); POTASSIUM 4.3 mmol/L (3.5-5.1); SODIUM 138 mmol/L (136-145)
[2017-08-04 13:05] LABS: PHOSPHORUS 2.8 mg/dl (2.5-4.9)
[2017-08-04 13:16] LABS: URINE APPEARANCE CLEAR (CLEAR); URINE BILIRUBIN NEG (NEG); URINE COLOR YELLOW; URINE EPITHELIAL CELL AUTO 0-5 /lpf (0-5); URINE NITRITE NEG (NEG); URINE SPECIFIC GRAVITY 1.008 (1.000-1.030); UROBILINOGEN NEG (NEG)
[2017-08-04 13:20] LABS: MANUAL MICROSCOPIC REQUIRED? NO; REVIEW REQ? NO
== END ==
LOC: C.LABBFT 08:45
PROVIDERS: ATTEND Internal Medicine Nephrology
DX: N18.3 Chronic kidney disease, stage 3 (moderate) (principal); I12.9 Hypertensive chronic kidney disease with stage 1 through stage 4 chronic kidney disease, or unspecified chronic kidney disease; D64.9 Anemia, unspecified; R80.9 Proteinuria, unspecified

== ENCOUNTER 2017-08-23 05:20 | Observation (INO) | payer OTHER ==
[2017-08-12 08:18] VITALS: BMI 24.0
--- NOTE | 2017-08-12 10:04 | PAT Medication Instructions ---
Service Date Aug 12, 2017. Current Home Medication List Albuterol Hfa (Ventolin Hfa), 2-4 PUFFS INH Q6H PRN for Shortness of Breath Allopurinol (Zyloprim), 100 MG PO QAM Atenolol (Tenormin), 25 MG PO BID Cyanocobalamin (Vitamin B-12), 100 MCG PO QAM Cyclobenzaprine Hcl (Flexeril), 1 TAB PO TID PRN for SPASMS Diltiazem Hcl Ext Rel (Tiazac), 180 MG PO QAM Epinephrine (Epipen), 0.3 MG IM UD Fexofenadine Hcl (Yaritza), 180 MG PO DAILY PRN for ALLERGY Folic Acid (Folic Acid), 1 MG PO QAM Gabapentin (Gabapentin), 600 MG PO TID Garlic (Garlic), 500 MG PO QAM Hydrocodone/Acetaminophen 5MG/325MG ([place] 5MG/325MG), 1-2 TABLET PO DAILY PRN for Pain Levalbuterol Tartrate (Levalbuterol Tartrate Hfa), 1 DOSE NEB Q4H PRN for SOB/ Wheezing Lisinopril/Hctz (Zestoretic 20MG/12.5MG), 1 TAB PO QAM Mometasone Furoate (Inhalation (Asmanex Twisthaler 120 Me), 2 PUFFS INH BID Mometasone Furoate (Nasal) (Mometasone Furoate), 2 SPRAYS INH BID Omeprazole (Prilosec), 20 MG PO BID Prazosin Hcl (Prazosin), 2 MG PO HS Thiamine Hcl (Vitamin B-1), 100 MG PO QAM Trazodone Hcl (Trazodone), 75 MG PO HS Venlafaxine Hcl (Venlafaxine Hcl Er), 112.5 MG PO QAM Medication Instructions For Your Scheduled Surgery - Hold the following medications as of 08/12/17: Garlic (Garlic), 500 MG PO QAM - Use if needed: Epinephrine (Epipen), 0.3 MG IM UD - Hold the following medications the morning of surgery: Folic Acid (Folic Acid), 1 MG PO QAM Cyanocobalamin (Vitamin B-12), 100 MCG PO QAM Fexofenadine Hcl (Yaritza), 180 MG PO DAILY PRN for ALLERGY Lisinopril/Hctz (Zestoretic 20MG/12.5MG), 1 TAB PO QAM Thiamine Hcl (Vitamin B-1), 100 MG PO QAM Cyclobenzaprine Hcl (Flexeril), 1 TAB PO TID PRN for SPASMS - Take the following medications the morning of surgery with a sip of water OTHERWISE NOTHING TO EAT OR DRINK AFTER MIDNIGHT: Albuterol Hfa (Ventolin Hfa), 2-4 PUFFS INH Q6H PRN for Shortness of Breath ( use if needed; BRING TO HOSPITAL) Atenolol (Tenormin), 25 MG PO BID Gabapentin (Gabapentin), 600 MG PO TID Hydrocodone/Acetaminophen 5MG/325MG ([place] 5MG/325MG), 1-2 TABLET PO DAILY PRN for Pain (may take if needed up to 4 hours prior to surgery) Mometasone Furoate (Inhalation (Asmanex Twisthaler 120 Me), 2 PUFFS INH BID Mometasone Furoate (Nasal) (Mometasone Furoate), 2 SPRAYS INH BID Levalbuterol Tartrate (Levalbuterol Tartrate Hfa), 1 DOSE NEB Q4H PRN for SOB/ Wheezing Diltiazem Hcl Ext Rel (Tiazac), 180 MG PO QAM Omeprazole (Prilosec), 20 MG PO BID Allopurinol (Zyloprim), 100 MG PO QAM Venlafaxine Hcl (Venlafaxine Hcl Er), 112.5 MG PO QAM - Take the following medications as scheduled the night before surgery: Albuterol Hfa (Ventolin Hfa), 2-4 PUFFS INH Q6H PRN for Shortness of Breath Atenolol (Tenormin), 25 MG PO BID Gabapentin (Gabapentin), 600 MG PO TID Prazosin Hcl (Prazosin), 2 MG PO HS Trazodone Hcl (Trazodone), 75 MG PO HS Hydrocodone/Acetaminophen 5MG/325MG ([place] 5MG/325MG), 1-2 TABLET PO DAILY PRN for Pain Mometasone Furoate (Inhalation (Asmanex Twisthaler 120 Me), 2 PUFFS INH BID Mometasone Furoate (Nasal) (Mometasone Furoate), 2 SPRAYS INH BID Levalbuterol Tartrate (Levalbuterol Tartrate Hfa), 1 DOSE NEB Q4H PRN for SOB/ Wheezing Omeprazole (Prilosec), 20 MG PO BID Cyclobenzaprine Hcl (Flexeril), 1 TAB PO TID PRN for SPASMS If you have any questions please call us at [phone] or [phone] or [phone]
[2017-08-12 10:39] LABS: INR 0.9 (0.9-1.1); PROTHROMBIN TIME (PATIENT) 9.9 SECONDS (9.0-12.0)
[2017-08-12 10:42] LABS: BASO % 0.2 %; BASO ABS # 0.01 K/uL (0-0.2); COMPLETE YES; EOS % 6.3 %; HEMATOCRIT 40.1 % (42-52); IG% 0.2 %; LYMPH % 26.5 %; LYMPH ABS # 1.56 K/uL (1.2-3.4); MEAN CELL VOLUME 91.6 fL (80-100); MEAN CORPUSCULAR HEMOGLOBIN 31.1 pg (25-34); MEAN CORPUSCULAR HGB CONC 33.9 g/dl (32-36); MEAN PLATELET VOLUME 9.5 fL (7.4-10.4); MONO % 8.7 %; NEUT % 58.1 %; PLATELET COUNT 237 K/uL (130-400); RED BLOOD COUNT 4.38 M/uL (4.7-6.1); WHITE BLOOD COUNT 5.88 K/uL (4.8-10.8)
--- NOTE | 2017-08-20 17:23 | HISTORY & PHYSICAL EXAMINATION ---
DATE OF ADMISSION: 08/23/2017 CHIEF COMPLAINT: Neck pain, arm pain, trapezius pain, weakness and paresthesias. HISTORY OF PRESENT ILLNESS: Steve is a pleasant young gentleman presents with the above-stated chief complaint of neck pain, arm pain, upper extremity difficulty, paresthesias and associated weakness. He has had 15-year duration of symptomatology, worsening over time, interested in some sort of remedy for this difficulty as he is tired of putting up with the problem. He has done therapy exercises, injections, ablations, and intermittent improvement, still with difficulty worsening. PAST MEDICAL HISTORY: Positive for asthma, childhood disease, anxiety, depression. PAST SURGICAL HISTORY: Shoulder replacement, knee replacement, low back surgery, rotator cuff surgery. ALLERGIES: ASPIRIN, ZOCOR. MEDICATIONS: Quite numerous, I have looked over those at the inquiry, in his hospital record; I am not dictating them, they are too lengthy. REVIEW OF SYSTEMS: He denies any blurred vision, double vision, tinnitus, vertigo. Denies chest pain, palpitations. Denies asthma, wheezing. He did have a history of asthma, did have problem with a chronic cough. No carcinoma. No history of liver or kidney issues. Denies nausea, vomiting, bowel and bladder discomfort. Admits to his neck pain, trapezius pain, upper extremity paresthesias and weakness. OBJECTIVE: GENERAL: He is 5 feet 9 inches, 173 pounds. He is in no terrible distress. BMI 25. VITAL SIGNS: Blood pressure from his primary care physician 120/70, respirations 16, heart rate left radial 56 beats per minute, temperature 98.2 oral. HEENT: Examination essentially normal. Pupils react to light and accommodation. Ear, nose and throat clear. LUNGS: Clear to auscultation. No rales, rhonchi or wheezing. CARDIOVASCULAR: Normal S1, S2. No S3. ABDOMEN: Soft and nontender. Bowel sounds present. NEUROLOGIC: Weakness of deltoid function, biceps function bilaterally symmetric. He has no hyperreflexia, slight loss of mail officer strength, loss of sensation, profound decreased range of motion, positive Lhermitte sign. IMAGES: He has a swan neck deformity of cervical spine, significant kyphosis. The epicenter of pressure is mostly 3-4, 4-5 and up at 2-3 of the cervical spine. IMPRESSION: Cervical spondylosis. DISPOSITION: Includes an anterior cervical discectomy and fusion C2-C5 cervical spine with iliac crest bone grafting.
[2017-08-23] VITALS (17 sets, daily range): BP systolic 131–178; BP diastolic 63–89; PULSE 58–96; TEMP 36.4–37.1; O2SAT 93–99; Ht 180.3 cm; Wt 78.6 kg
[~2017-08-23] VITALS: Ht 180.3 cm; Wt 78.6 kg
[~2017-08-23 05:20] MED LIST changes: -ALBU1AER9 INH; +ALLO100T PO; -ALLO1TAB51 PO; -Asmanex INH; -EPP3 IM; +EPP3/2 IM; -GABA400C PO; -GARL400T4 PO; +GARL500C5 PO; -LEVA1.25 NEB; +LEVA45AE NEB; +LISI-787 PO; +MOME220A INH; -MOME50SP5; +MOME6000 INH; +NRN600 PO; -PRN10125 PO; +VNTHFA/IN INH
[2017-08-23] MEDS ORDERED: LACTATED RINGER'S 1000ML 1,000 ML IV SCH (06:00)
[2017-08-23] MEDS ORDERED: NSS 1000ML IV SCH (06:00)
[2017-08-23] MEDS ORDERED: CEFAZOLIN 2000MG IV PUSH 10 ML IV SCH (06:00)
[2017-08-23] MEDS ORDERED: GELATIN SPONGE SZ 100 ONE (06:57)
[2017-08-23] MEDS ORDERED: THROMBIN FOR SOLN 20000 UNIT KIT ONE (06:58)
[2017-08-23] MEDS ORDERED: BACITRACIN 50000 UNIT VIAL ONE (06:58)
[2017-08-23] MEDS ORDERED: BUPIVACAINE/EPINEPHRINE 0.5% MPF 1:200,000 30 ML VIAL ONE (06:59)
[2017-08-23] MEDS ORDERED: BUPIVACAINE/EPINEPHRINE 0.5% MPF 1:200,000 10 ML VIAL ONE (07:01)
[2017-08-23] MEDS ORDERED: FENTANYL CITRATE INJ 50 MCG/1 ML 2 ML VIAL ONE (07:02)
[2017-08-23] MEDS ORDERED: HYDROmorphone INJ 2 MG/ML SYR/VIAL ONE (07:03)
[2017-08-23] MEDS ORDERED: BUPIVACAINE/EPINEPHRINE 0.25% 1:200,000 30 ML VIAL ONE (07:10)
--- NOTE | 2017-08-23 07:17 | History & Physical Bridge Note ---
H&P Re-Evaluation Bridge Note: I have examined the patient, reviewed the History & Physical and in the interval since the performance of the History & Physical I have noted the following changes of clinical significance: No changes noted; Admit to [facility]
[2017-08-23] MEDS ORDERED: FLUMAZENIL 0.1 MG/1 ML 10 ML VIAL IV PRN (07:45)
[2017-08-23] MEDS ORDERED: ONDANSETRON INJ 2 MG/ML 2 ML VIAL IV PRN ×2 (07:45→09:45)
[2017-08-23] MEDS ORDERED: HYDROmorphone INJ 2 MG/ML SYR/VIAL IV PRN (07:45)
[2017-08-23] MEDS ORDERED: LABETALOL HCL IV 5 MG/ML 20ML IV PRN (07:45)
[2017-08-23] MEDS ORDERED: MEPERIDINE HCL 25 MG/ML CARP IV PRN (07:45)
[2017-08-23] MEDS ORDERED: NALOXONE HCL 0.4 MG/1 ML VIAL/CARP IV PRN ×2 (07:45→09:45)
[2017-08-23] MEDS ORDERED: EpHEDrine SULFATE INJ 50 MG/ML AMP IV PRN (07:45)
[2017-08-23] MEDS ORDERED: PHENYLEPHRINE 100MCG/ML 5ML SYR IV PRN (07:45)
[2017-08-23] MEDS ORDERED: ATROPINE SULFATE 0.1 MG/ML 5ML SYR IV PRN (07:45)
[2017-08-23] MEDS ORDERED: LIDOCAINE HCL 2% 2 ML VIAL (20MG/ML) ONE (08:01)
[2017-08-23] MEDS ORDERED: PROPOFOL IV EMULSION 10 MG/ML 20 ML VIAL IV ONE (08:01)
[2017-08-23] MEDS ORDERED: ONDANSETRON INJ 2 MG/ML 2 ML VIAL ONE (08:01)
[2017-08-23] MEDS ORDERED: ROCURONIUM BROMIDE 10 MG/ML 5 ML VIAL IV ONE (08:01)
[2017-08-23] MEDS ORDERED: EpHEDrine SULFATE INJ 50 MG/ML AMP ONE (08:01)
[2017-08-23] MEDS ORDERED: DEXAMETHASONE SOD INJ 4 MG/ML VIAL ONE (08:01)
[2017-08-23] MEDS ORDERED: GLYCOPYRROLATE INJ 0.2 MG/ML VIAL ONE ×2 (09:03→10:36)
--- NOTE | 2017-08-23 09:30 | DIAGNOSTIC IMAGING REPORT ---
SPINE ONE VIEW, ANY LEVEL HISTORY: 76 years-old Male ACDF C2-5 status post cervical spine fusion. COMPARISON: Cervical spine radiographs 07/28/2017. TECHNIQUE: Single lateral spot fluoroscopic image of the cervical spine was obtained utilizing 4.3 seconds of fluoroscopy time. Interpretation of the images was conducted after the conclusion of the procedure. FINDINGS: Discectomy changes are present at C3-C4. Fusion hardware at C4-C5 is noted with discectomy changes. Alignment is satisfactory. Multilevel facet arthropathy and endplate spurring is noted with advanced intervertebral disc space narrowing at C5-C6. IMPRESSION: Fluoroscopic assistance as above. Please see operative report for further details. The above report was generated using voice recognition software. It may contain grammatical, syntax or spelling errors. Electronically signed by: Tremaine Crow M.D. 08/23/2017 9:29 AM Dictated Date/Time: 08/23/2017 9:26 AM
[2017-08-23] MEDS ORDERED: DEXAMETHASONE INJ 8 MG in SYRINGE 0 ML IV PRN (09:45)
[2017-08-23] MEDS ORDERED: MAGNESIUM HYDROXIDE SUSP 30 ML UDC PO PRN (09:45)
[2017-08-23] MEDS ORDERED: ACETAMINOPHEN IV 1,000 MG in EMPTY BAG 0 ML IV PRN (09:45)
[2017-08-23] MEDS ORDERED: LORAZEPAM INJ 0.5 MG in SYRINGE 0.75 ML IV PRN (09:45)
[2017-08-23] MEDS ORDERED: EPINEPHRINE ADULT AUTO-INJECT 0.3 MG SYR IM PRN (09:45)
[2017-08-23] MEDS ORDERED: RACEPINEPHRINE 2.25% NEBU SOLN 0.5 ML VIAL INH PRN (09:45)
[2017-08-23] MEDS ORDERED: FEXOFENADINE HCL 180 MG TAB PO PRN (09:45)
[2017-08-23] MEDS: FENTANYL CITRATE INJ 50 MCG/1 ML 2 ML VIAL IV PRN ×4 (09:56→10:23)
[2017-08-23] MEDS ORDERED: NEOSTIGMINE METHYLSULFATE 5 MG/5 ML SYR ONE (10:36)
[2017-08-23] MEDS ORDERED: IV FLUIDS COMPLETED PRN (10:45)
--- NOTE | 2017-08-23 10:45 | Anesthesiology Progress Note ---
Anesthesia Post Op Note Date & Time Aug 23, 2017 at 10:45 Vital Signs Pain Intensity: 4 Vital Signs Past 12 Hours Date Time Temp Pulse Resp B/P (MAP) Pulse Ox O2 Delivery O2 Flow Rate FiO2 08/23/17 10:43 61 16 08/23/17 10:43 60 16 95 08/23/17 10:41 138/74 08/23/17 10:38 63 17 95 08/23/17 10:38 61 17 08/23/17 10:36 144/79 08/23/17 10:33 60 16 97 08/23/17 10:33 61 16 08/23/17 10:32 147/67 08/23/17 10:28 61 18 08/23/17 10:28 62 18 95 08/23/17 10:26 151/83 08/23/17 10:23 58 22 08/23/17 10:23 59 22 96 08/23/17 10:21 146/87 08/23/17 10:18 55 13 08/23/17 10:18 56 13 94 08/23/17 10:16 144/ 08/23/17 10:13 55 12 08/23/17 10:13 57 12 99 08/23/17 10:12 52 13 08/23/17 10:12 52 13 98 08/23/17 10:11 153/79 08/23/17 10:07 62 19 155/89 97 08/23/17 10:07 63 19 08/23/17 10:02 51 13 153/81 99 08/23/17 10:02 54 13 08/23/17 09:57 53 16 93 08/23/17 09:57 53 16 08/23/17 09:55 145/78 08/23/17 09:52 51 20 08/23/17 09:52 51 20 98 08/23/17 09:47 53 21 08/23/17 09:47 53 21 94 08/23/17 09:46 150/79 08/23/17 09:43 158/82 08/23/17 09:42 35.7 54 18 158/82 96 Oxymask 10 08/23/17 09:42 53 17 96 08/23/17 09:42 54 17 08/23/17 05:45 36.5 67 18 168/86 97 Room Air Notes Mental Status: alert / awake / arousable, participated in evaluation Pt Amnestic to Procedure: Yes Nausea / Vomiting: adequately controlled Pain: adequately controlled Airway Patency, RR, SpO2: stable & adequate BP & HR: stable & adequate Hydration State: stable & adequate Anesthetic Complications: no major complications apparent
[2017-08-23] MEDS: SODIUM CHLORIDE 0.9% 1000ML 1,000 ML IV SCH ×2 (11:10→22:00)
--- NOTE | 2017-08-23 12:48 | [facility] Post Operative Brief Note ---
Immediate Operative Summary Operative Date Aug 23, 2017. Pre-Operative Diagnosis Cervical spondylosis Post-Operative Diagnosis Cervical spondylosis Procedure(s) Performed C3-C5 Anterior Cervical Discectomy and Fusion, C3-C4, C4-C5 Interbody Cage, with Iliac Crest Bone Graft Surgeon Dr. Steve Alexander Looper Fixer Surgeon(s) Alejandro Mariano PA-C Estimated Blood Loss 20mL Findings cord compression Specimens None Complication(s) None Disposition Recovery Room / PACU
[2017-08-23] MEDS: GABAPENTIN 600 MG TAB PO SCH ×2 (13:31→21:10)
--- NOTE | 2017-08-23 13:40 | OPERATIVE REPORT ---
DATE OF OPERATION: 08/23/2017 PREOPERATIVE DIAGNOSIS: Spinal cord compression, C3-4 and C4-5 cervical spine. POSTOPERATIVE DIAGNOSIS: Same. PROCEDURE: Anterior cervical decompression of the spinal cord at C3-4, C4-C5 cervical spine. SURGEON: Dr. Alexander. TRIMMER SAWYER: OLGA Michelle. COMPLICATIONS: Zero. BLOOD LOSS: Less than 30. DESCRIPTION OF PROCEDURE: The patient was taken to the operating room, a general intubated anesthetic provided to the patient, placed on the James flat table. He was supine. Occipital placed for some traction, we prepped and draped sterile including his left iliac crest. An incision was made over the cervical spine area. Dissecting the soft tissue, we came right down on the 3-4 interspace. We put in self-retaining retractors and hand held retractors. We did a complete discectomy at 3-4 and 4-5, back to the spinal cord. I was pleased with the dissection and decompression. We used the [employer] system. This was packed with autogenous bone taken from the left iliac crest. We had completely restored lordosis and the cord was decompressed. We tightened down the construct, irrigated and closed in layers over a [place] drain. Sterile dressing was applied. The patient returned to recovery room satisfactory and stable. There were no apparent complications. I attest to the content of the Intraoperative Record and any orders documented therein. Any exceptions are noted below. MTDD
[2017-08-23] MEDS: HYDROmorphone INJ 0.5 MG/0.5 ML SYR IV PRN ×3 (14:12→22:46)
[2017-08-23] MEDS: CEFAZOLIN IV 1,000 MG in SYRINGE 0 ML IV SCH ×2 (16:23→23:14)
[2017-08-23] MEDS: LISINOPRIL/HCTZ 20/12.5MG TAB PO SCH (17:27)
[2017-08-23] MEDS ORDERED: NURSING VERBAL MED ORDER ONE (18:00)
[2017-08-23] MEDS: FLUTICASONE PROPIONATE NA SPR 16 GM BTL SCH (21:00)
[2017-08-23] MEDS ORDERED: TRAZODONE HCL 50 MG TAB PO SCH (21:00)
[2017-08-23] MEDS ORDERED: PRAZOSIN HCL 1 MG CAP PO SCH (21:00)
[2017-08-23] MEDS: DOCUSATE SODIUM 100 MG CAP PO SCH (21:10)
[2017-08-23] MEDS: PANTOprazole SOD 40 MG TAB PO SCH (21:10)
[2017-08-23] MEDS: MOMETASONE FUROATE 14 PUFF/1 INHALER INH SCH (21:11)
[2017-08-24] VITALS (13 sets, daily range): BP systolic 151–189; BP diastolic 77–91; PULSE 56–78; TEMP 36.4–36.8; O2SAT 93–98
[2017-08-24] MEDS: HYDROmorphone INJ 0.5 MG/0.5 ML SYR IV PRN (02:05)
[2017-08-24] MEDS: HYDROCODONE/ACETAMOPHEN 5/325MG TAB PO PRN ×2 (06:13→11:38)
[2017-08-24] MEDS: MOMETASONE FUROATE 14 PUFF/1 INHALER INH SCH (08:33)
[2017-08-24] MEDS: DOCUSATE SODIUM 100 MG CAP PO SCH (08:33)
[2017-08-24] MEDS: FLUTICASONE PROPIONATE NA SPR 16 GM BTL SCH (08:33)
[2017-08-24] MEDS: LISINOPRIL/HCTZ 20/12.5MG TAB PO SCH (08:36)
[2017-08-24] MEDS: GABAPENTIN 600 MG TAB PO SCH (08:36)
[2017-08-24] MEDS: PANTOprazole SOD 40 MG TAB PO SCH (08:36)
[2017-08-24] MEDS: CEFAZOLIN IV 1,000 MG in SYRINGE 0 ML IV SCH (08:42)
[2017-08-24] MEDS ORDERED: CYANOCOBALAMIN 100 MCG TAB (VIT B-12) PO SCH (09:00)
[2017-08-24] MEDS ORDERED: DILTIAZEM HCL (TIAzac) 180 MG CAPCR PO SCH (09:00)
[2017-08-24] MEDS ORDERED: THIAMINE HCL 100 MG TAB PO SCH (09:00)
[2017-08-24] MEDS ORDERED: NON-FORMULARY MEDICATION (Garlic 500 MG) PO SCH (09:00)
[2017-08-24] MEDS ORDERED: VENLAFAXINE HCL XR 37.5 MG CAPXR PO SCH (09:00)
[2017-08-24] MEDS ORDERED: ALLOPURINOL 100 MG TAB PO SCH (09:00)
--- NOTE | 2017-08-24 09:29 | Discharge Instructions ---
Discharge Instructions Date of Service Aug 24, 2017. Admission Reason for Admission: Cervical Stenosis, Disc Herniation Discharge Discharge Diagnosis / Problem: same Discharge Goals Goal(s): Improve function Activity Recommendations Activity Limitations: as noted below Lifting Limitations: gradually increase as tolerated Exercise/Sports Limitations: until after follow-up appointment . Current Hospital Diet Patient's current hospital diet: Regular Diet Discharge Diet Recommended Diet: Regular Diet Procedures Procedures Performed: C3-C5 Anterior Cervical Discectomy and Fusion, C3-C4, C4-C5 Interbody Cage, with Iliac Crest Bone Graft Pending Studies Studies pending at discharge: no Laboratory Results Lipid Panel Test 05/27/17 07:40 Range/Units Triglycerides Level 106 0-150 mg/dl Cholesterol Level 201 H 0-200 mg/dl HDL Cholesterol 51 mg/dl Cholesterol/HDL Ratio 3.9 LDL Cholesterol, Calculated 129 mg/dl Medical Emergencies . Who to Call and When: Medical Emergencies: If at any time you feel your situation is an emergency, please call 911 immediately. . Non-Emergent Contact Non-Emergency issues call your: Surgeon . "Provider Documentation" section prepared by Steve Alexander. . VTE Core Measure Inpt VTE Proph given/why not?: Treatment not indicated
[2017-08-25] MEDS ORDERED: BISACODYL 5 MG TABEC PO PRN (06:00)
[2017-08-25] MEDS ORDERED: BISACODYL 10 MG SUPP PR PRN (06:00)
== END 2017-08-24 13:42 | disposition home or self-care (01) ==
LOC: C.ACU 05:20 → C.3E 06:10 → ENRESERV 10:31
PROVIDERS: ADMIT Orthopaedic Surgery Orthopaedic Surgery of the Spine; ATTEND Orthopaedic Surgery Orthopaedic Surgery of the Spine
DX: M47.22 Other spondylosis with radiculopathy, cervical region (principal); J45.909 Unspecified asthma, uncomplicated; F41.9 Anxiety disorder, unspecified; F32.9 Major depressive disorder, single episode, unspecified; Z79.899 Other long term (current) drug therapy

== ENCOUNTER → 2017-10-08 | Outpatient (CLI) | payer OTHER ==
[2017-10-08 14:39] LABS: BLOOD UREA NITROGEN 30 mg/dl (7-18); BUN/CREATININE RATIO 18.6 (10-20); CALCIUM 9.3 mg/dl (8.5-10.1); CARBON DIOXIDE 27 mmol/L (21-32); CHLORIDE 108 mmol/L (98-107); GLUCOSE 100 mg/dl (70-99); POTASSIUM 4.1 mmol/L (3.5-5.1); SODIUM 140 mmol/L (136-145)
[2017-10-08 14:41] LABS: PHOSPHORUS 3.3 mg/dl (2.5-4.9)
== END | disposition home or self-care (01) ==
LOC: C.LAB1850 12:32
PROVIDERS: ATTEND Internal Medicine Nephrology
DX: I12.9 Hypertensive chronic kidney disease with stage 1 through stage 4 chronic kidney disease, or unspecified chronic kidney disease (principal); N18.3 Chronic kidney disease, stage 3 (moderate); D64.9 Anemia, unspecified; R80.9 Proteinuria, unspecified

== ENCOUNTER → 2017-12-15 | Outpatient (CLI) | payer OTHER ==
[2017-12-15 12:24] LABS: BASO % 0.3 %; BASO ABS # 0.02 K/uL (0-0.2); EOS % 3.3 %; EOS ABS # 0.22 K/uL (0-0.5); HEMATOCRIT 42.2 % (42-52); HEMOGLOBIN 14.4 g/dL (14.0-18.0); IG# 0.01 K/uL (0.00-0.02); LYMPH ABS # 1.54 K/uL (1.2-3.4); MEAN CORPUSCULAR HEMOGLOBIN 32.4 pg (25-34); MEAN CORPUSCULAR HGB CONC 34.1 g/dl (32-36); MEAN PLATELET VOLUME 10.3 fL (7.4-10.4); MONO % 8.5 %; MONO ABS # 0.57 K/uL (0.11-0.59); NEUT % 64.8 %; NEUT ABS # 4.34 K/uL (1.4-6.5); PLATELET COUNT 233 K/uL (130-400); RED CELL DISTRIBUTION WIDTH CV 13.5 % (11.5-14.5)
[2017-12-15 12:54] LABS: ALBUMIN 3.2 gm/dl (3.4-5.0); ALT/SGPT 13 U/L (12-78); AST/SGOT 10 U/L (15-37); BLOOD UREA NITROGEN 23 mg/dl (7-18); CALCIUM 9.4 mg/dl (8.5-10.1); CARBON DIOXIDE 30 mmol/L (21-32); CREATININE 1.76 mg/dl (0.60-1.40); GLUCOSE 96 mg/dl (70-99); POTASSIUM 4.4 mmol/L (3.5-5.1); SODIUM 139 mmol/L (136-145)
[2017-12-15 13:05] LABS: ALKALINE PHOSPHATASE 83 U/L (45-117); TOTAL PROTEIN 7.2 gm/dl (6.4-8.2)
== END ==
LOC: C.LABBFT 10:13
PROVIDERS: ATTEND Nurse Practitioner
DX: R53.83 Other fatigue (principal)

== ENCOUNTER → 2018-03-17 | Outpatient (CLI) | payer OTHER ==
[2018-03-17 12:58] LABS: BASO % 0.2 %; BASO ABS # 0.01 K/uL (0-0.2); EOS ABS # 0.21 K/uL (0-0.5); HEMATOCRIT 41.8 % (42-52); IG# 0.01 K/uL (0.00-0.02); LYMPH % 27.6 %; LYMPH ABS # 1.45 K/uL (1.2-3.4); MEAN CELL VOLUME 95.7 fL (80-100); MEAN CORPUSCULAR HGB CONC 33.5 g/dl (32-36); MEAN PLATELET VOLUME 9.8 fL (7.4-10.4); MONO % 8.2 %; MONO ABS # 0.43 K/uL (0.11-0.59); NEUT % 59.8 %; NEUT ABS # 3.14 K/uL (1.4-6.5); PLATELET COUNT 231 K/uL (130-400); RED CELL DISTRIBUTION WIDTH CV 14.3 % (11.5-14.5); RED CELL DISTRIBUTION WIDTH SD 50.2 fL (36.4-46.3); WHITE BLOOD COUNT 5.25 K/uL (4.8-10.8)
[2018-03-17 13:26] LABS: ALBUMIN 2.8 gm/dl (3.4-5.0); ALKALINE PHOSPHATASE 75 U/L (45-117); ALT/SGPT 15 U/L (12-78); AST/SGOT 11 U/L (15-37); BLOOD UREA NITROGEN 26 mg/dl (7-18); CALCIUM 8.9 mg/dl (8.5-10.1); CARBON DIOXIDE 27 mmol/L (21-32); CHOLESTEROL 192 mg/dl (0-200); CREATININE 1.95 mg/dl (0.60-1.40); GLUCOSE 93 mg/dl (70-99); LDL CHOLESTEROL CALCULATED 122 mg/dl; SODIUM 140 mmol/L (136-145); TOTAL PROTEIN 6.4 gm/dl (6.4-8.2)
== END | disposition home or self-care (01) ==
LOC: C.LABBFT 09:54
PROVIDERS: ATTEND Internal Medicine Nephrology
DX: I10 Essential (primary) hypertension (principal); N18.3 Chronic kidney disease, stage 3 (moderate); D64.9 Anemia, unspecified; R80.9 Proteinuria, unspecified

== ENCOUNTER → 2018-05-31 | Outpatient (CLI) | payer OTHER ==
[~2018-05-31] MED LIST changes: +THIA100T10 PO; -THIA100T11 PO
[2018-05-31 17:29] LABS: BASO % 0.2 %; BASO ABS # 0.01 K/uL (0-0.2); EOS % 4.2 %; EOS ABS # 0.24 K/uL (0-0.5); HEMATOCRIT 42.6 % (42-52); HEMOGLOBIN 14.4 g/dL (14.0-18.0); IG# 0.01 K/uL (0.00-0.02); LYMPH % 26.7 %; LYMPH ABS # 1.52 K/uL (1.2-3.4); MEAN CELL VOLUME 95.9 fL (80-100); MEAN CORPUSCULAR HEMOGLOBIN 32.4 pg (25-34); MEAN CORPUSCULAR HGB CONC 33.8 g/dl (32-36); MEAN PLATELET VOLUME 10.5 fL (7.4-10.4); MONO % 7.6 %; MONO ABS # 0.43 K/uL (0.11-0.59); NEUT % 61.1 %; NEUT ABS # 3.48 K/uL (1.4-6.5); PLATELET COUNT 225 K/uL (130-400); RED CELL DISTRIBUTION WIDTH CV 13.5 % (11.5-14.5); RED CELL DISTRIBUTION WIDTH SD 46.8 fL (36.4-46.3); WHITE BLOOD COUNT 5.69 K/uL (4.8-10.8)
[2018-05-31 17:39] LABS: ALBUMIN 3.1 gm/dl (3.4-5.0); ALKALINE PHOSPHATASE 73 U/L (45-117); ALT/SGPT 15 U/L (12-78); AST/SGOT 10 U/L (15-37); BLOOD UREA NITROGEN 30 mg/dl (7-18); CALCIUM 9.2 mg/dl (8.5-10.1); CARBON DIOXIDE 27 mmol/L (21-32); CREATININE 2.07 mg/dl (0.60-1.40); GLUCOSE 92 mg/dl (70-99); LIPASE 161 U/L (73-393); POTASSIUM 4.6 mmol/L (3.5-5.1); SODIUM 139 mmol/L (136-145); TOTAL PROTEIN 6.7 gm/dl (6.4-8.2)
== END | disposition home or self-care (01) ==
LOC: C.LABBFT 12:54
PROVIDERS: ATTEND Internal Medicine
DX: R11.0 Nausea (principal)

== ENCOUNTER → 2018-06-06 | Outpatient (CLI) | payer OTHER ==
--- NOTE | 2018-06-06 08:48 | DIAGNOSTIC IMAGING REPORT ---
ULTRASOUND ABDOMEN COMPLETE CLINICAL HISTORY: Nausea. COMPARISON STUDY: Renal ultrasound dated 06/07/2017. TECHNIQUE: Real-time, grayscale, and color flow sonography of the abdomen was performed. Images are reviewed in the transverse and longitudinal planes. FINDINGS: Liver: The liver is normal in size and echotexture. There is no intrahepatic biliary ductal dilatation. The main portal vein is patent. Gallbladder: The gallbladder is normal in appearance. No gallstones are identified. There is no gallbladder wall thickening or pericholecystic fluid. A sonographic Peguero's sign is reportedly absent. The common bile duct measures up to 0.4 cm in diameter. Pancreas: Visualized portions of the pancreatic head are normal in appearance. The majority of the pancreas was not well visualized due to overlying bowel gas. The splenic vein is patent. Spleen: The spleen is normal in size and echotexture, measuring 12.4 cm in length. Kidneys: The kidneys demonstrate cortical atrophy. There is no hydronephrosis. The right kidney measures 10 point cm in length and the left kidney measures 10.1 cm in length. No shadowing calculi are identified. Abdominal vasculature: Imaged portions of the abdominal aorta and IVC are normal as visualized. Ascites: None. IMPRESSION: No acute sonographic abnormality is identified. No gallstones are seen. Electronically signed by: Phlil Oakley M.D. 06/06/2018 8:47 AM Dictated Date/Time: 06/06/2018 8:45 AM
== END | disposition home or self-care (01) ==
LOC: C.ULTR 07:56
PROVIDERS: ATTEND Internal Medicine
DX: R11.0 Nausea (principal)

== ENCOUNTER 2018-12-21 08:12 | Inpatient (IN) ==
--- NOTE | 2018-12-09 10:05 | PAT Medication Instructions ---
Medication Instructions Date of Service December 09, 2018 Home Medications albuterol sulfate 2 puff INHALATION Q6H PRN allopurinol 100 mg PO QPM atenolol 25 mg PO QAM budesonide-formoterol 2 puff INHALATION BID cyanocobalamin (vitamin B-12) 200 mcg PO QAM diltiazem HCl 180 mg PO QAM folic acid 1 mg PO QAM gabapentin 300 mg PO BID PRN garlic 500 mg PO QPM guaifenesin 1 tab PO UD PRN lisinopril-hydrochlorothiazide 1 tab PO QAM omega 9-knl-kqx-fish oil [Fish Oil] 1 cap PO BID omeprazole 20 mg PO BID prazosin 2 mg PO BID thiamine HCl (vitamin B1) 100 mg PO QAM venlafaxine 150 mg PO HS Albuterol Nebulizer 1 dose PO UD PRN fexofenadine 180 mg PO DAILY trazodone 75 mg PO HS STOP taking 2 weeks before surgery garlic 500 mg PO QPM omega 6-qme-uyn-fish oil [Fish Oil] 1 cap PO BID If surgery is within 2 weeks, stop taking as soon as possible. DO NOT take the morning of surgery cyanocobalamin (vitamin B-12) 200 mcg PO QAM folic acid 1 mg PO QAM guaifenesin 1 tab PO UD PRN lisinopril-hydrochlorothiazide 1 tab PO QAM thiamine HCl (vitamin B1) 100 mg PO QAM fexofenadine 180 mg PO DAILY Take morning of surgery With a small sip of water, OTHERWISE NOTHING TO EAT OR DRINK AFTER MIDNIGHT: albuterol sulfate 2 puff INHALATION Q6H PRN (if needed, and bring with you to the hospital) atenolol 25 mg PO QAM budesonide-formoterol 2 puff INHALATION BID diltiazem HCl 180 mg PO QAM gabapentin 300 mg PO BID PRN (if needed) omeprazole 20 mg PO BID prazosin 2 mg PO BID Albuterol Nebulizer 1 dose PO UD PRN (if needed) Take evening before surgery allopurinol 100 mg PO QPM albuterol sulfate 2 puff INHALATION Q6H PRN (if needed) budesonide-formoterol 2 puff INHALATION BID venlafaxine 150 mg PO HS trazodone 75 mg PO HS gabapentin 300 mg PO BID PRN (if needed) omeprazole 20 mg PO BID prazosin 2 mg PO BID Albuterol Nebulizer 1 dose PO UD PRN (if needed) Other Notes If you have any questions please call us at [phone] or [phone] or [phone] or [phone]
--- NOTE | 2018-12-09 10:18 | Anesthesiology Consultation ---
Date of Service December 09, 2018 Assessment & Plan (1) Encounter for pre-operative examination: Plan: - PCP= 12/12/18= Preop labs "stable." "stable from a CV perspective for this upcoming surgery." Renal insufficiency "stable." - Seen by cardio prior to right CEA (done 08/2018 at [facility])= 07/06/2018= " currently stable and asymptomatic from a CV standpoint with no anginal symptoms occurring at greater than 4 METS of activity.. most recent echocardiogram performed in 2011 demonstrated normal LV systolic function with no regional wall motion abnormalities. An EKG performed in the office today shows sinus bradycardia at 57 [address]pm with no acute [address]�T wave abnormality. Given this information, the patient is at an acceptable risk to proceed with upcoming surgery without any additional cardiovascular testing or intervention." Chart Review Chart Review: Acceptable Risk for Surgery and Patient seen in Pre Admission Testing Teaching & Discussion Pre-Anesthesia Teaching/Discussion Notes: Instructed NPO after midnight before surgery,except medications with 15 cc of water. Medication instructions provided according to the PAT guidelines. History Surgery Operation Date: 12/21/18 07:30 Proposed Procedures p Left Reversed Total Shoulder Arthroplasty - Chi Davila MD Height/Weight Height: 5 ft 11 in Weight: 78.2 kg Allergies Allergy/AdvReac Type Severity Reaction Status Date / Time aspirin Allergy Severe hives and Verified 12/02/18 08:51 mouth/throat swelling, hyperventilation ketorolac Allergy Unknown avoids Verified 12/02/18 08:51 secondary to aspirin component Fptuzny-Eie-Uln Reductase AdvReac Intermediate severe Verified 12/02/18 08:51 Inhibitor muscle cramps oxycodone AdvReac Mild MENTAL Verified 12/02/18 08:51 STATUS CHANGES Medications Home Medications Medication Instructions Recorded Confirmed Last Taken albuterol sulfate 2 puff INHALATION Q6H PRN 08/10/18 12/02/18 08/10/18 14:00 allopurinol 100 mg PO QPM 08/10/18 12/02/18 12/01/18 atenolol 25 mg PO QAM 08/10/18 12/02/18 12/02/18 budesonide-formoterol 2 puff INHALATION BID 08/10/18 12/02/18 08/11/18 06:30 cyanocobalamin (vitamin B-12) 200 mcg PO QAM 08/10/18 12/02/18 12/02/18 diltiazem HCl 180 mg PO QAM 08/10/18 12/02/18 12/02/18 folic acid 1 mg PO QAM 08/10/18 12/02/18 12/02/18 gabapentin 300 mg PO BID PRN 08/10/18 12/02/18 08/04/18 08:00 garlic 500 mg PO QPM 08/10/18 12/02/18 12/01/18 guaifenesin 1 tab PO UD PRN 08/10/18 12/02/18 08/10/18 20:30 lisinopril-hydrochlorothiazide 1 tab PO QAM 08/10/18 12/02/18 12/02/18 omega 4-kad-zly-fish oil [Fish Oil] 1 cap PO BID 08/10/18 12/02/18 08/10/18 07: 15 omeprazole 20 mg PO BID 08/10/18 12/02/18 08/11/18 06:30 prazosin 2 mg PO BID 08/10/18 12/02/18 08/10/18 21:00 thiamine HCl (vitamin B1) 100 mg PO QAM 08/10/18 12/02/18 12/02/18 venlafaxine 150 mg PO HS 08/10/18 12/02/18 12/02/18 Albuterol Nebulizer 1 dose PO UD PRN 12/02/18 12/02/18 Unknown fexofenadine 180 mg PO DAILY 12/02/18 12/02/18 Unknown trazodone 75 mg PO HS 12/02/18 12/02/18 12/01/18 Past Medical History Medical History History of difficult intubation C3-5 ACDF= 08/23/17= Grade view 2, Glidescope#4, ETT 8.0 (Head/neck neutral for intubation) at [facility] Anxiety Asthma STABLE Benign essential tremor HANDS Cancer COLON (CANCEROUS POLYP S/P RESECTION) Carotid artery stenosis S/P RIGHT CEA (08/2018) Chronic kidney disease CREATININE STABLE IN THE 1.9 RANGE X 6+ MONTHS Degenerative disc disease Depression GERD (gastroesophageal reflux disease) CONTROLLED Gout Hearing deficit Hyperlipidemia Hypertension Osteoarthritis Post traumatic stress disorder Past Family History Family History Sister Family history of breast cancer Past Surgical History Surgical History History of cardiac cath - NO STENTS History of cervical spinal surgery C3-5 ACDF History of colonoscopy W/ POLYPECTOMY History of esophagogastroduodenoscopy (EGD) History of lumbar fusion L4-L5 History of right-sided carotid endarterectomy 08/11/18 AT [facility]= GRADE VIEW 1, MAC 3, ETT 7.5 (REINTUBATED 2/2 LEAK) History of tonsillectomy History of tooth extraction History of total knee replacement LEFT History of total shoulder replacement RIGHT Past Anesthesia History No Hx of Anesthesia Complications and No Family Hx of Anesthesia Complications History of PONV No Motion Sickness Screening History of Motion Sickness: No Social History Smoking Status: Former smoker Do You Dip or Chew Tobacco: Yes (1 CAN/2 WEEKS - ADVISED NOT TO CHEW AM DOS) Smoking End Date: QUIT 1976 Hx Alcohol Use: No Hx Substance Use: No substance use type: does not use Exercise / Class Metabolic Activity III < 4 Walking/Shop/Light housework Review of Systems Reflux controlled. Patient denies chest pain, shortness of breath, cough, wheezing, palpitations. Physical Exam Vital Signs VITALS BP 126/69 P 71 TEMP 98.5 SP02 93%RA RESP 12 Full neck and c-spine range of motion. Full TMJ range of motion. TMD 4 finger breaths Mallampati Score 2 Dentition: full dentures upper/lower; edentulous Lungs: clear throughout to auscultation Cardiac: regular rate and rhythm, no murmurs noted Spine: normal Carotid arteries: negative bruit Extremities: no edema Trimmed valles Testing Electrocardiogram Date: 07/06/18 Findings: + SB @ (57) Chest X-Ray Date: 08/08/18 Findings: + NAD Other Testing Carotid Duplex= 06/02/18= >70% stenosis MAURA, >50% stenosis RECA, <50% stenosis LICA, Antegrade vertebral flow B/L, Significant progression of the right ICA stenosis compared to prior exam 04/09/2017 (subsequent right CEA done 08/2018) Laboratory Results 12/09/18 10:50 12/09/18 10:50 Blood Type O Positive 12/09/18 10:50 Antibody Screen NEGATIVE 12/09/18 10:50 PT 10.0 Seconds (9.0-12.0) 12/09/18 10:50 INR 1.0 (0.9-1.1) 12/09/18 10:50 APTT 24.9 Seconds (21.0-31.0) 12/09/18 10:50 Hemoglobin A1c 5.9 % (4.5-5.6) H 12/09/18 10:50 Urine Color Yellow 12/09/18 Unknown Urine Appearance Clear (Clear) 12/09/18 Unknown Urine pH 5.5 (4.5-7.5) 12/09/18 Unknown Ur Specific [place] 1.011 (1.000-1.030) 12/09/18 Unknown Urine Protein Negative (Negative) 12/09/18 Unknown Urine Glucose (UA) Negative (Negative) 12/09/18 Unknown Urine Ketones Negative (Negative) 12/09/18 Unknown Urine Nitrite Negative (Negative) 12/09/18 Unknown Ur Leukocyte Esterase Negative (Negative) 12/09/18 Unknown 12/09/18 GFR 32.6 ("stable" per PCP note 12/12/18)
[2018-12-09 11:19] LABS: Appearance Urine Clear (Clear); Bilirubin Urine Negative (Negative); Color Urine Yellow; Glucose Urine UA Negative (Negative); Ketones Urine Negative (Negative); Leukocyte Esterase Urine Negative (Negative); Nitrite Urine Negative (Negative); Protein Urine Negative (Negative); Specific Gravity Urine 1.011 (1.000-1.030); Urobilinogen Urine Negative (Negative); pH Urine 5.5 (4.5-7.5)
[2018-12-09 11:23] LABS: Basophils # (auto) 0.01 K/uL (0-0.2); Basophils % (auto) 0.1 %; Hematocrit (blood only) 42.6 % (42-52); Hemoglobin 14.5 g/dL (14.0-18.0); Immature Granulocytes # (auto) 0.02 K/uL (0.00-0.02); Immature Granulocytes % (auto) 0.2 %; Lymphocytes # (auto) 0.82 K/uL (1.2-3.4); Lymphocytes % (auto) 8.6 %; Mean Corpuscular Volume 93.2 fL (80-100); Mean Platelet Volume 10.1 fL (7.4-10.4); Monocytes # (auto) 0.51 K/uL (0.11-0.59); Monocytes % (auto) 5.3 %; Neutrophils % (auto) 85.8 %; Partial Thromboplastin Time 24.9 Seconds (21.0-31.0); Platelet Count 256 K/uL (130-400); RDW Coefficient of Variation 13.6 % (11.5-14.5); RDW Standard Deviation 45.7 fL (36.4-46.3); Red Blood Count 4.57 M/uL (4.7-6.1); White Blood Count 9.56 K/uL (4.8-10.8)
[2018-12-09 11:41] LABS: Estimated Average Glucose 123 mg/dl
[2018-12-09 12:20] LABS: Albumin Level 3.2 gm/dl (3.4-5.0); BUN Creatinine Ratio 17.4 (10-20); Calcium 9.7 mg/dl (8.5-10.1); Creatinine Clr Calc Pharmacy 33.8 ml/min; Est GFR (African American) 37.8; Est GFR (Non-African American) 32.6; Potassium 4.7 mmol/L (3.5-5.1)
--- NOTE | 2018-12-20 21:02 | History and Physical Report ---
DATE OF ADMISSION: CHIEF COMPLAINT: Chronic left shoulder pain and weakness. HISTORY OF PRESENT ILLNESS: This is a 78-year-old male patient of Dr. Mejia, complaining of chronic left shoulder pain and weakness, longstanding, now progressively getting worse. He has been diagnosed with left shoulder arthritis and rotator cuff arthropathy. He has failed conservative treatment and has elected to proceed with a left reversed total shoulder arthroplasty. PAST MEDICAL HISTORY: Hypertension, asthma, sleep apnea, peripheral neuropathy, spine problems, neck problems, upper back problems and sciatica. SOCIAL HISTORY: Nonsmoker and nondrinker. PAST SURGICAL HISTORY: Neck surgery, right shoulder and right neck artery. FAMILY HISTORY: Noncontributory. REVIEW OF SYSTEMS: Chronic left shoulder pain and weakness. Otherwise, denies any shortness of breath, chest pain, nausea, vomiting or any other joint complaints. MEDICATIONS: 1. Folic acid daily. 2. Lisinopril/hydrochlorothiazide 10/12.5 mg daily. 3. Levalbuterol 1.25 mg per 3 mL solution nebulizer every 8 hours as needed. 4. Albuterol sulfate 2 mg 1 tablet 3 times daily. 5. Atenolol 25 mg daily. 6. Vitamin B12 100 mcg daily. 7. Diltiazem 180 mg daily. 8. Baclofen 10 mg twice daily. 9. Fexofenadine 180 mg daily. 10. Guaifenesin 200 mg every 3 hours as needed. 11. Asmanex inhaler 220 mcg 1 puff daily at night. 12. Prazosin 2 mg daily. 13. Vitamin B1 100 mg daily. 14. Venlafaxine 37.5 mg 3 tablets daily with food. ALLERGIES: INCLUDE ASPIRIN, SIMVASTATIN AND CHOLESTEROL MEDICATION. PHYSICAL EXAMINATION: GENERAL: Well-developed, well-nourished, 78-year-old male, in no acute distress. He is alert and oriented x3 and pleasant. HEENT: Normocephalic and atraumatic. Extraocular motions are intact. Pupils are equal and reactive to light. HEART: Regular rate and rhythm with occasional skipped beat. LUNGS: Clear. ABDOMEN: Soft and nontender. Bowel sounds are present. EXTREMITIES: Left shoulder reveals full range of motion with pain and crepitation. He has 3/5 strength globally. NEUROLOGIC: Neurovascularly he is intact in his left upper extremity. DIAGNOSES: Left shoulder arthritis and rotator cuff arthropathy with a history of hypertension, asthma, sleep apnea, spine problems, neck problems and sciatica. PLAN: The patient was advised of his diagnosis. Indications, risks, benefits and postoperative course have all been reviewed. The patient wished to proceed with a left reverse total shoulder arthroplasty. Necessary consent forms, preoperative testing and clearances will be obtained.
[~2018-12-21 08:12] MED LIST changes: +ACETAMINOPHEN 500 MG TAB PO SCH; -ALLO100T PO; -ATEN-173 PO; +BUPIVACAINE/EPINEPHRINE 0.5% MPF 1:200,000 30 ML VIAL ONE; +CEFAZOLIN 1000MG 1,000 MG/7.5 ML SYR IV SCH; -CYAN100T PO; -CYCL10TA6 PO; +CeleBREX 200 MG CAP PO SCH; -DILT-113 PO; -EPP3/2 IM; +FAMOTIDINE 20 MG TAB PO SCH; -FEXO1TAB46 PO; -FLV1 PO; +GABAPENTIN 300 MG PO SCH; -GARL500C5 PO; -HYDR-5688 PO; -LEVA45AE NEB; -LISI-787 PO; +LR 15ML/HR IV SCH; +METOCLOPRAMIDE HCL 10 MG TABLET PO SCH; -MOME220A INH; -MOME6000 INH; -NRN600 PO; -PRAZ2CAP3 PO; -PRLSR20 PO; +ROPIVACAINE 0.5% 5 MG/ML 30 ML VIAL ONE; -THIA100T10 PO; -TRAZ50TA35 PO; -VENL-271 PO; -VNTHFA/IN INH; +dexAMETHasone 4 MG TAB PO SCH
[2018-12-21] MEDS ORDERED: MIDAZOLAM HCL 1 MG/ML 2ML VIAL ONE (10:15)
[2018-12-21] MEDS ORDERED: fentaNYL citrate 100 MCG/2 ML VIAL ONE (10:15)
[2018-12-21] MEDS ORDERED: PROPOFOL IV EMULSION 10 MG/ML 20 ML VIAL IV ONE (12:02)
[2018-12-21] MEDS ORDERED: SUCCINYLCHOLINE 100MG/5ML SYR ONE (12:02)
[2018-12-21] MEDS ORDERED: ROCURONIUM BROMIDE 10 MG/ML 5 ML VIAL ONE (12:02)
--- NOTE | 2018-12-21 12:04 | History & Physical Bridge Note ---
Date of Service December 21, 2018 History & Physical Bridge Note I have examined the patient, reviewed the History & Physical and in the interval since the performance of the History & Physical I have noted the following changes of clinical significance: no changes noted
[2018-12-21] MEDS ORDERED: BACITRACIN INJ 50,000 UNIT VIAL ONE (12:06)
[2018-12-21] MEDS ORDERED: HYDROCORTISONE SOD SUCCINATE 100 MG/2 ML VIAL ONE (13:00)
[2018-12-21] MEDS ORDERED: GLYCOPYRROLATE 0.2 MG/ML VIAL ONE (13:22)
[2018-12-21] MEDS ORDERED: ONDANSETRON INJ 2 MG/ML 2 ML VIAL ONE (13:22)
[2018-12-21] MEDS ORDERED: ePHEDrine sulfate 50 MG/ML AMP ONE (13:39)
[2018-12-21] MEDS ORDERED: VASOPRESSIN 20 UNIT/ML VIAL ONE (13:41)
--- NOTE | 2018-12-21 14:36 | Post Operative Brief Note ---
Immediate Post Op Note v1 Date of Surgery December 21, 2018 Pre & Post Diagnosis Operation Date: 12/21/18 11:35 Pre-Op Diagnosis: Left shoulder arthritis and rotator cuff arthropathy,failed rotator cuff repair Post-Op Diagnosis: Left shoulder arthritis and rotator cuff arthropathy,failed rotator cuff repair Procedure Operation Date: 12/21/18 11:35 Actual Procedures p Left Reversed Total Shoulder Arthroplasty(Left) - Chi Davila MD Surgeon Chi Davila MD Manager [employer] [place] ESPINOZA Estimated Blood Loss 75 Findings Consistent with Post-Op Diagnosis Specimens Humeral head Drains Hemovac Drain Anesthesia Type General Regional Complications none Disposition Accompanied Patient To Recovery: No Disposition: Recovery Room Overlapping Procedure I was immediately available: during the entire case.
--- NOTE | 2018-12-21 15:01 | Operative Report ---
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 prior rotator cuff repair Procedure Operation Date: 12/21/18 11:35 Actual Procedures p Left Reversed Total Shoulder Arthroplasty(Left) - Chi Davila MD Surgeon Chi Davila MD Manager Credit Risk Chaparro ESPINOZA Estimated Blood Loss 75 Findings Consistent with Post-Op Diagnosis Specimens Humeral head Drains 2 Hemovac Anesthesia Type General Regional Complications none Disposition Accompanied Patient To Recovery: No Disposition: Recovery Room Indications 78-year-old male history of rotator cuff repair years ago progressive pain weakness of his left shoulder with proximal migration of the humerus rotator cuff arthropathy and MRI demonstrating nutritional thinning failure superior aspect rotator cuff repair with rupture long head biceps Description of Procedure The patient was taken to the operating room and anesthetized under regional block and general anesthetic. The patient was positioned on the operating table in a 30� beachchair position with a towel roll under the medial border of the left scapula. The arm was draped free to be able to manipulate the shoulder as needed. The left upper extremity was prepped and draped in usual sterile fashion. Exam demonstrated some crepitation with range of motion with forward elevation to 160 degrees external rotation to 80 degrees abduction to 100 degrees. An anterior deltopectoral approach was performed. A longitudinal incision was made in the deltopectoral interval. The skin was incised sharply. Subcutaneous flaps were elevated off the fascia. The cephalic vein was dissected out and retracted lateral with the deltoid. The clavipectoral fascia was divided at the lateral margin of the conjoined tendon and extended up to the CA ligament. The following findings were noted: The biceps was absent retracted distally the subscapularis tendon was thin but intact there was a chronic supraspinatus and anterior infraspinatus tendon tear with thin scarred bursal tissue overlying the upper humeral head.. The upper centimeter of the pectoralis was released for inferior exposure. A # 1 Vicryl traction suture was placed into the free end of the subscapularis tendon and capsule. The subscapular muscle fibers were split longitudinally at the level of the circumflex vessels. The circumflex vessels were identified and tied off with silk ties and divided laterally. A Kitner elevator was used to free up the inferior fibers of the subscapularis off of the capsule. The axillary nerve was identified with a tug test and protected with a blunt Ingrid retractor between the nerve and the capsule. The subscapularis tendon was then taken down off of the lesser tuberosity subperiosteally and subperiosteal dissection was performed along the neck of the humerus as the arm is gradually actually rotated exposing the humeral head. There were no inferior humeral osteophytes. The humeral head had an area of about 2-1/2 cm round exposed eburnated bone in the upper central portion. A Crockett elevator was used to assist in releasing the capsule of the neck of the humerus. The capsule was divided with Mccabe scissors down to the glenoid released off the anterior glenoid and the rotator interval was released to meet the capsular release and a 360� release of the subscapularis was accomplished. A Fukuda retractor was placed into the joint retracting the humeral head posterior. Glenoid findings demonstrated grade 3 glenoid wear. The labrum was resected. an anterior- inferior and posterior inferior capsular release were performed with electrocautery and a Crockett elevator on bone with the axillary nerve protected inferiorly by the retractor. Attention was then taken to the humeral preparation. The cutting guide was placed into the humeral head. It was positioned at 20� of retroversion. Oscillating saw was used to resect the humeral head giving the cut above the level of the posterior rotator cuff insertion site. The humerus was then prepared for the stem. I used the [place]end flex stem [place]. The sizing broaches were used followed by trial broaches up to a size 7 which had the appropriate fit and fill. The appropriate sized cut protector was placed. The humerus was then retracted posterior to the glenoid. The glenoid was sized for a 29. The guide for the baseplate was positioned in a 10� inferior tilt and the central drill hole was made. The reamer for the 29 baseplate was used. The central drill was widened for the peg. The 29 baseplate was impacted into position. The base plate was transfixed with superior and inferior locking screws and anterior and posterior compression screws with stable fixation. The fan reamer was used for the 36 millimeter glenoid sphere. After irrigation the 36 mm +2 inferior offset glenoid sphere was impacted onto the baseplate and the screw was tightened. Attention was taken back to the humerus. The cut protector was removed and the +0 high offset humeral tray trial was assembled to the trial stem rotated appropriately to get bony coverage and then screwed in position. A trial reduction was performed. A +6 trial insert demonstrated good stability and no shuck. The trials were removed. 3 drill holes are made into the harder bone in the bicipital groove area and 3 #5 FiberWire sutures were placed transosseously. The canal was irrigated with antibiotic solution with bacitracin. The final component was assembled. The final component was ascend flex long 7B stem assembled to +0 high offset tray sample 2+6 polyethylene insert. This was then impacted into the humerus with a tight press-fit. It was reduced to the glenoid sphere. Stability was verified. Subscapularis was repaired with the #5 FiberWire sutures using Ru-Doc suture technique. Lateral row soft tissue repair was performed with #2 FiberWire [id number] sutures. The pectoralis was repaired with #2 FiberWire [id number] sutures . The arm was taken through a range of motion which demonstrated 160 degrees forward elevation 90 degrees abduction 70 degrees external rotation without any tension on the repair. The implant was stable through the range of motion tested. The wound was copiously irrigated. 2 Hemovac drains were placed. The deltopectoral interval was closed with [id number] #1 Vicryl sutures. The subcutaneous tissues were closed with 2-0 Vicryl sutures. The skin was closed with mari. Sterile dressings were applied and a shoulder immobilizer. Chaparro ESPINOZA my physician phlebotomist medical lab assistant assisted in the procedure to the entire procedure including patient positioning arm positioning prepping and draping soft tissue retraction instrument management suture management and performed the subcutaneous and skin closure and will participate in the postoperative care of the patient. I attest to the content of the Intraoperative Record and any orders documented therein. Any exceptions are noted below.
--- NOTE | 2018-12-21 15:22 | XRay Report ---
XR shoulder LT min 2V routine CLINICAL HISTORY: Post shoulder surgery COMPARISON STUDY: None. FINDINGS: The patient is status post a reverse left total shoulder arthroplasty. The hardware appears intact. No acute fracture or dislocation. Skin mari and surgical drains are in place. Old, healed left clavicle fracture is noted. IMPRESSION: Status post left total shoulder arthroplasty. No evidence for hardware complication. Electronically signed by: Nikko Leggett M.D. 12/21/2018 3:21 PM
--- NOTE | 2018-12-21 15:27 | Anesthesiology Progress Note ---
Date of Service December 21, 2018 Anesthesia Post Procedure Vital Signs Vital Signs: Temp Pulse Pulse Resp BP Pulse Ox 12/21/18 15:10 76 19 128/74 95 12/21/18 15:00 75 17 118/73 96 12/21/18 14:52 36.0 C L 79 12 169/86 H 93 12/21/18 09:29 36.8 C 58 L 20 130/73 97 Pain Intensity Left Knee: Pain Intensity: 4 Left Shoulder: Pain Intensity: 0 Notes Mental Status: alert / awake / arousable and participated in evaluation Nausea / Vomiting: adequately controlled Pain: adequately controlled Airway Patency, RR, SpO2: stable & adequate BP & HR: stable & adequate Hydration State: stable & adequate Anesthetic Complications: no major complications apparent and Pt Satisfied with anesthetic care Notes: The patient is doing well in recovery with no complaints. He is saturating 97% on 4L NC. Due to his hx of COPD will keep him on continuous pulse oximetry overnight for closer monitoring.
[2018-12-21] MEDS ORDERED: GABAPENTIN 300 MG CAP PO PRN (16:20)
[2018-12-21] MEDS ORDERED: BISACODYL 10 MG SUPP PR PRN (16:20)
[2018-12-21] MEDS ORDERED: ALBUTEROL NEBULIZER PO PRN (16:20)
[2018-12-21] MEDS ORDERED: ACETAMINOPHEN 325 MG TAB PO PRN (16:20)
[2018-12-21] MEDS ORDERED: guaiFENesin 200 MG TAB PO PRN (16:20)
[2018-12-21] MEDS ORDERED: NALOXONE HCL 0.4 MG/1 ML VIAL/CARP IV PRN (16:20)
[2018-12-21] MEDS ORDERED: MAGNESIUM HYDROXIDE SUSP 30 ML UDC PO PRN (16:20)
[2018-12-21] MEDS ORDERED: ONDANSETRON INJ 2 MG/ML 2 ML VIAL IV PRN (16:20)
[2018-12-21] MEDS ORDERED: HYDROmorphone INJ 0.5 MG/0.5 ML SYR IV PRN (16:20)
[2018-12-21] MEDS ORDERED: ALBUTEROL HFA 8 GM INHALER INH PRN (16:20)
[2018-12-21] MEDS: SODIUM CHLORIDE 0.9% 1000ML 1,000 ML IV SCH (17:53)
--- NOTE | 2018-12-21 19:01 | Consultation ---
Date of Consultation December 21, 2018 Assessment & Plan (1) Hypertension: BP stable on Diltiazem and Atenolol, continue inpatient used to take Lisinopril but tapered off after his carotid endarterectomy (2) Asthma: stable, uses inhaler a few times a week can have rescue inhaler PRN (3) Carotid stenosis: h/o of this, s/p carotid endarterectomy on the right (4) Cervical stenosis of spinal canal: s/p surgery by Dr. Alexander years ago has decreased mobility but this is typical for him (5) History of back surgery: by Dr. Amezcua no current issues (6) DJD of left shoulder: s/p total reversed shoulder arthroplasty pain control, d/c planning, therapy per ortho will continue to follow with you check labs in the AM History of Present Illness Reason for Consultation: medical management Requesting Physician: Dr. Davila Attending Physician: Chi Davila MD History of Present Illness 78 yo male s/p left reversed total shoulder arthroplasty, doing well, pain controlled. No complications with the surgery, minimal blood loss. The patient is sitting up in a chair, feels well. Pain is minimal. No chest pain or difficulty breathing. Ate his entire dinner, no nausea, no abdominal pain. He says that since he had a carotid endarterectomy in July 2018 his health has been stable. He says that after the CEA he even came off of his Lisinopril. He still takes the Atenolol and Diltiazem. His asthma has been well controlled, uses his inhaler a few times a week. He says that he feels like he has a "bubble" in his chest ever since surgery but it is slowly resolving. Over the past few months his weight has been stable, eating well, no issues moving his bowels or urinating. He has chronic low back pain and some neck pain. Has history of both lumbar surgery and cervical spine surgery. He has some neuropathy in his legs bilaterally but currently it is not bothering him. Allergies Allergy/AdvReac Type Severity Reaction Status Date / Time aspirin Allergy Severe hives and Verified 12/21/18 09:21 mouth/throat swelling, hyperventilation ketorolac Allergy Unknown avoids Verified 12/21/18 09:21 secondary to aspirin component Regxagz-Hqj-Aag Reductase AdvReac Intermediate severe Verified 12/21/18 09:21 Inhibitor muscle cramps oxycodone AdvReac Mild MENTAL Verified 12/21/18 09:21 STATUS CHANGES Home Medications Home Medications Medication Instructions Recorded Confirmed Type albuterol sulfate 2 puff INHALATION Q6H PRN 08/10/18 12/21/18 History allopurinol 100 mg PO QPM 08/10/18 12/02/18 History atenolol 25 mg PO QAM 08/10/18 12/02/18 History budesonide-formoterol 2 puff INHALATION BID 08/10/18 12/21/18 History cyanocobalamin (vitamin B-12) 200 mcg PO QAM 08/10/18 12/02/18 History diltiazem HCl 180 mg PO QAM 08/10/18 12/02/18 History folic acid 1 mg PO QAM 08/10/18 12/02/18 History gabapentin 300 mg PO BID PRN 08/10/18 12/02/18 History garlic 500 mg PO QPM 08/10/18 12/02/18 History guaifenesin 1 tab PO UD PRN 08/10/18 12/02/18 History omega 8-nvw-[id number]-fish oil [Fish Oil] 1 cap PO BID 08/10/18 12/21/18 History omeprazole 20 mg PO BID 08/10/18 12/21/18 History prazosin 2 mg PO BID 08/10/18 12/21/18 History thiamine HCl (vitamin B1) 100 mg PO QAM 08/10/18 12/02/18 History venlafaxine 150 mg PO HS 08/10/18 12/02/18 History Albuterol Nebulizer 1 dose PO UD PRN 12/02/18 12/02/18 History fexofenadine 180 mg PO DAILY 12/02/18 12/21/18 History trazodone 75 mg PO HS 12/02/18 12/02/18 History Patient History Family History Sister Family history of breast cancer Social History Current Living Situation: Spouse Other Information That Helps Us Care for You: No Feels Safe at Home: Yes Smoking Status: Former smoker Do You Dip or Chew Tobacco: Yes (1 CAN/2 WEEKS - ADVISED NOT TO CHEW AM DOS) Smoking End Date: QUIT 1976 Hx Alcohol Use: No Hx Substance Use: No Beliefs That Will Affect Care: None Preferred Language: Turkmen Communication Ability: Effective Channel Marketing Manager Required: No Review of Systems Constitutional: no fever, no chills, no sweats, no fatigue and no weakness Respiratory: no cough, no chest congestion, no dyspnea, no dyspnea on exertion, no pain with cough, no snoring and no wheezing Cardiovascular: no chest pain, no chest pain at rest, no dyspnea, no palpitations, no syncope, no edema and no claudication Gastrointestinal: no abdominal pain, no nausea, no vomiting, no constipation and no diarrhea/loose stools Genitourinary (Male): no dysuria, no difficulty urinating, no urinary frequency , no urinary hesitancy, no urinary incontinence and no nocturia Musculoskeletal: + back pain, + neck pain, + joint pain (left shoulder) and + limited range of motion; no radicular pain, no myalgia, no muscle weakness and no muscle atrophy Integumentary: no rash, no lesions, no wounds and no unusual bruising Neurologic: + numbness (lower legs, intermittent); no gait abnormality, no unsteadiness, no falls, no tremor(s), no restless legs, no seizure-like activity and no syncope Psychiatric: no depression, no abnormal sleep pattern, no irritability, no anxiety and no confusion Endocrine: no fatigue, no polydipsia, no polyphagia and no polyuria Hematologic / Lymphatic: no easy bleeding, no easy bruising, no night sweats and no unexplained weight loss Physical Exam 2 Vital Signs (Past 24 Hours): Last Vital Signs Temp 36.6 C 12/21/18 18:10 Pulse 77 12/21/18 18:10 Resp 18 12/21/18 18:10 BP 126/82 12/21/18 18:10 Pulse Ox 96 12/21/18 18:10 Constitutional: WD/WN, vitals as above Eyes: PERRL, conjunctivae normal, anicteric sclerae ENMT: external ear and nose normal, oropharynx normal Neck: trachea midline, no thyromegaly Respiratory: normal respiratory effort, lungs clear to auscultation Cardiovascular: RRR, no murmur, no edema Gastrointestinal (Abdomen): normal bowel sounds, soft, nontender, no hepatosplenomegaly Musculoskeletal: no cyanosis or clubbing, extremities motor strength 5/5 Extremities: + extremities abnormal to inspection (left shoulder wrapped, arm in sling, DENISE drain in place) Skin: no rashes, warm and dry Neurologic: patellar DTR's 2+ bilat, sensation intact and PERRL, EOMI, accommodation nl, no face palsy, no dysarthria Psychiatric: A+Ox3, euthymic affect Lymphatic: no cervical or axillary lymphadenopathy Results & Data Medications Administered Current Inpatient Medications Acetaminophen (Tylenol) 650 mg PO Q6H PRN PRN Reason: Fever Stop: 01/20/19 16:19 Hydrocodone Bitart/Acetaminophen (Boyden 5/325) 1 - 2 tab PO Q4H PRN PRN Reason: Pain Stop: 01/04/19 16:19 Albuterol (Ventolin Hfa) 2 puffs INH Q6H PRN PRN Reason: Shortness Of Breath Stop: 01/20/19 16:19 Allopurinol (Zyloprim) 100 mg PO QPM [facility] Stop: 01/20/19 20:59 Last Admin: 12/21/18 21:24 Dose: 100 mg Atenolol (Tenormin) 25 mg PO QAM [facility] Stop: 01/21/19 08:59 Bisacodyl (Dulcolax) 10 mg HI Q6H PRN PRN Reason: Constipation Stop: 01/20/19 16:19 Budesonide/Formoterol Fumarate (Symbicort 160mcg/4.5mcg) 2 puffs INH BID [facility] Stop: 01/20/19 20:59 Last Admin: 12/21/18 21:24 Dose: 2 puffs Cyanocobalamin (Vitamin B-12) 200 mcg PO QAM [facility] Stop: 01/21/19 08:59 Diltiazem HCl (Dilacor Xr) 180 mg PO QAM [facility] Stop: 01/21/19 08:59 Diphenhydramine HCl (Benadryl Capsule) 25 mg PO Q8H PRN PRN Reason: Itching Stop: 01/20/19 16:19 Docusate Sodium (Colace) 100 mg PO BID [facility] Stop: 01/20/19 20:59 Last Admin: 12/21/18 21:21 Dose: 100 mg Fexofenadine HCl (Yaritza) 180 mg PO DAILY [facility] Stop: 01/21/19 08:59 Folic Acid (Folvite) 1 mg PO QAM [facility] Stop: 01/21/19 08:59 Gabapentin (Neurontin) 300 mg PO BID PRN PRN Reason: Pain Stop: 01/20/19 16:19 Guaifenesin (Organidin Nr) 200 mg PO UD PRN PRN Reason: Cough Stop: 01/20/19 16:19 Hydromorphone HCl (Dilaudid) 0.5 mg IV Q4H PRN PRN Reason: Pain Stop: 01/04/19 16:19 Sodium Chloride (Nss 1000ml) 1,000 mls @ 100 mls/hr IV .Q10H [facility] Stop: 12/22/18 06:00 Last Admin: 12/21/18 17:53 Dose: 100 mls/hr Cefazolin Sodium (Ancef 1000mg) 1,000 mg in 7.5 mls @ 2.5 mls/min IV Q8H [facility]; Protocol Stop: 12/22/18 04:02 Last Admin: 12/21/18 21:12 Dose: 2.5 mls/min Magnesium Hydroxide (Milk Of Magnesia) 30 ml PO Q6H PRN PRN Reason: Constipation Stop: 01/20/19 16:19 Multivitamins (Multivitamin Tab) 1 tab PO [facility] Stop: 01/21/19 08:59 Naloxone HCl (Narcan) 0.1 mg IV Q5M PRN PRN Reason: Oversedation/Resp Depression Stop: 01/20/19 16:19 Ondansetron HCl (Zofran) 4 mg IV Q6H PRN PRN Reason: Nausea And Vomiting Stop: 01/20/19 16:19 Pantoprazole Sodium (Protonix) 40 mg PO BID [facility] Stop: 01/20/19 20:59 Last Admin: 12/21/18 21:23 Dose: 40 mg Prazosin HCl (Prazosin Hcl) 2 mg PO BID [facility] Stop: 01/20/19 20:59 Last Admin: 12/21/18 21:22 Dose: 2 mg Sennosides (Senokot) 17.2 mg PO HS [facility] Stop: 01/20/19 20:59 Last Admin: 12/21/18 21:23 Dose: 17.2 mg Thiamine HCl (Vitamin B-1) [facility] [place]: 01/21/19 08:59 Tramadol HCl (Ultram) 50 - 100 mg PO Q4H PRN PRN Reason: Pain Stop: 01/20/19 16:19 Trazodone HCl (Desyrel) 75 mg PO HS [facility] Stop: 01/20/19 20:59 Last Admin: 12/21/18 21:21 Dose: 75 mg Venlafaxine HCl (Effexor Extended Release) 150 mg PO HS [facility] Stop: 01/20/19 20:59 Last Admin: 12/21/18 21:19 Dose: Not Given
[2018-12-21] MEDS: CEFAZOLIN 1000MG 1,000 MG/7.5 ML SYR IV SCH (21:12)
[2018-12-21] MEDS: VENLAFAXINE HCL XR 150 MG CAPXR PO SCH (21:19)
[2018-12-21] MEDS: TRAZODONE HCL 50 MG TAB PO SCH (21:21)
[2018-12-21] MEDS: DOCUSATE SODIUM 100 MG CAP PO SCH (21:21)
[2018-12-21] MEDS: PRAZOSIN HCL 1 MG CAP PO SCH (21:22)
[2018-12-21] MEDS: PANTOprazole 40 MG TAB PO SCH (21:23)
[2018-12-21] MEDS: SENNA 8.6 MG TAB PO SCH (21:23)
[2018-12-21] MEDS: ALLOPURINOL 100 MG TAB PO SCH (21:24)
[2018-12-21] MEDS: BUDESONIDE/FORMOTEROL FUMARATE 160/4.5 60 PUFFS/INHALER INH SCH (21:24)
[2018-12-22] MEDS: SODIUM CHLORIDE 0.9% 1000ML 1,000 ML IV SCH (02:52)
[2018-12-22] MEDS: CEFAZOLIN 1000MG 1,000 MG/7.5 ML SYR IV SCH (03:09)
[2018-12-22 06:32] LABS: Basophils # (auto) 0.01 K/uL (0-0.2); Basophils % (auto) 0.1 %; Hemoglobin 11.9 g/dL (14.0-18.0); Immature Granulocytes # (auto) 0.03 K/uL (0.00-0.02); Immature Granulocytes % (auto) 0.2 %; Lymphocytes # (auto) 0.59 K/uL (1.2-3.4); Lymphocytes % (auto) 4.5 %; Mean Corpuscular Hgb Conc 33.1 g/dL (32-36); Mean Corpuscular Volume 92.1 fL (80-100); Mean Platelet Volume 10.1 fL (7.4-10.4); Monocytes # (auto) 0.46 K/uL (0.11-0.59); Monocytes % (auto) 3.5 %; Neutrophils # (auto) 11.88 K/uL (1.4-6.5); Neutrophils % (auto) 91.7 %; Platelet Count 188 K/uL (130-400); RDW Coefficient of Variation 13.7 % (11.5-14.5); RDW Standard Deviation 45.4 fL (36.4-46.3); Red Blood Count 3.91 M/uL (4.7-6.1); White Blood Count 12.97 K/uL (4.8-10.8)
[2018-12-22 07:07] LABS: BUN Creatinine Ratio 15.9 (10-20); Calcium 8.2 mg/dl (8.5-10.1); Creatinine Clr Calc Pharmacy 33.1 ml/min; Est GFR (African American) 36.9; Est GFR (Non-African American) 31.8; Potassium 4.4 mmol/L (3.5-5.1)
--- NOTE | 2018-12-22 08:14 | Anesthesiology Progress Note ---
Date of Service December 22, 2018 Anesthesia Post Procedure Vital Signs Vital Signs: Temp Pulse Pulse Pulse Resp BP Pulse Ox 12/22/18 07:04 36.7 C 88 18 162/89 H 95 12/22/18 03:32 36.6 C 80 16 164/76 H 96 12/22/18 00:01 36.6 C 81 16 153/84 H 96 12/21/18 19:22 36.7 C 80 18 164/89 H 95 12/21/18 18:10 36.6 C 77 18 126/82 96 12/21/18 17:10 36.6 C 71 16 147/85 H 97 12/21/18 16:40 36.4 C L 68 16 151/85 H 96 12/21/18 16:10 36.5 C 75 18 131/80 95 12/21/18 15:40 78 17 129/73 96 12/21/18 15:30 36.2 C L 77 17 118/81 95 12/21/18 15:20 77 12 126/77 93 12/21/18 15:10 76 19 128/74 95 12/21/18 15:00 75 17 118/73 96 12/21/18 14:52 36.0 C L 79 12 169/86 H 93 12/21/18 09:29 36.8 C 58 L 20 130/73 97 Pain Intensity Left Knee: Pain Intensity: 4 Left Shoulder: Pain Intensity: 0 Notes Mental Status: alert / awake / arousable and participated in evaluation Patient Amnestic to Procedure: Yes Nausea / Vomiting: adequately controlled Pain: adequately controlled Airway Patency, RR, SpO2: stable & adequate BP & HR: stable & adequate Hydration State: stable & adequate Anesthetic Complications: no major complications apparent and Pt Satisfied with anesthetic care
--- NOTE | 2018-12-22 08:35 | Orthopedic Progress Note ---
Date of Service December 22, 2018 Assessment & Plan (1) DJD of left shoulder: POD #1, Left reversed TSA Limited PT/ OT- HEP ONLY D/C planning- Home w HEP As per medicine. Subjective POD #1, Doing well, Denies SOB, CP, N/V, pain controlled well. Physical Exam 2 Vital Signs (Past 24 Hours): Last Vital Signs Temp 36.7 C 12/22/18 07:04 Pulse 88 12/22/18 07:04 Resp 18 12/22/18 07:04 BP 162/89 H 12/22/18 07:04 Pulse Ox 95 12/22/18 07:04 Physical Exam: Left shoulder dressings c/d/i, no drainage, drain in tact, fingers mobile, sling in tact, A&Ox3.
[2018-12-22] MEDS: PANTOprazole 40 MG TAB PO SCH (09:08)
[2018-12-22] MEDS: FEXOFENADINE HCL 180 MG TAB PO SCH (09:08)
[2018-12-22] MEDS: CYANOCOBALAMIN (VITAMIN B-12) 100 MCG TABLET PO SCH (09:09)
[2018-12-22] MEDS: FOLIC ACID 1 MG TAB PO SCH (09:09)
[2018-12-22] MEDS: BUDESONIDE/FORMOTEROL FUMARATE 160/4.5 60 PUFFS/INHALER INH SCH ×2 (09:11→20:25)
[2018-12-22] MEDS: PRAZOSIN HCL 1 MG CAP PO SCH ×2 (09:11→20:24)
[2018-12-22] MEDS: THIAMINE HCL 100 MG TAB PO SCH (09:12)
[2018-12-22] MEDS: MULTIVITAMIN TAB PO SCH (09:12)
[2018-12-22] MEDS: ATENOLOL 25 MG TABLET PO SCH (09:12)
[2018-12-22] MEDS: HYDROCODONE/ACETAMOPHEN 5/325MG TAB PO PRN ×2 (10:16→14:28)
[2018-12-22] MEDS: DOCUSATE SODIUM 100 MG CAP PO SCH ×2 (11:52→20:24)
--- NOTE | 2018-12-22 13:58 | Hospitalist Progress Note ---
Date of Service December 22, 2018 Assessment & Plan (1) DJD of left shoulder: S/p total reversed shoulder arthroplasty on 12/[address] Davila. - Pain control, therapy per ortho - Discharge per primary team (2) Lower urinary tract symptoms (LUTS): Had to get straight-cathed today when Marrero came out. Notes some trouble with starting stream at home. Likely BPH/LUTS. - Start Flomax tonight - Can prescribe 30-day supply on discharge if he tolerates it. (3) Hypertension: BP stable on diltiazem and atenolol. BP currently 160/90 and has been mildly high, but asymptomatic. - Continue inpatient - Used to take Lisinopril but tapered off after his carotid endarterectomy - Can consider re-adding as outpatient (4) Asthma: Stable, uses inhaler a few times a week. - Can have rescue inhaler PRN (5) Carotid stenosis: S/p carotid endarterectomy on the right. - No inpatient needs (6) Cervical stenosis of spinal canal: S/p surgery by Dr. Alexander years ago. Has decreased mobility but this is typical for him. - No inpatient needs (7) History of back surgery: By Dr. Amezcua. - No current issues (8) DVT prophylaxis: SCDs - Per primary team Given medical stability, Hospital Medicine team will sign off. Please re- consult with any questions or concerns. Thank you for letting us assist in the care of this patient! Please prescribe Flomax 0.4 mg QHS on discharge if it improves patient symptoms. Subjective 78yo M w/ hx of DM who presents with shoulder reversal wtih Dr. Davila. Doing well today. Urinating well. No BM. Reports no fevers/chills, chest pain, shortness of breath, abdominal pain, nausea, or vomiting. Physical Exam 2 Vital Signs (Past 24 Hours): Last Vital Signs Temp 36.7 C 12/22/18 07:04 Pulse 88 12/22/18 07:04 Resp 18 12/22/18 07:04 BP 162/89 H 12/22/18 07:04 Pulse Ox 95 12/22/18 07:04 Constitutional: WD/WN, vitals as above Eyes: PERRL, conjunctivae normal, anicteric sclerae ENMT: external ear and nose normal, oropharynx normal Neck: trachea midline, no thyromegaly Respiratory: normal respiratory effort, lungs clear to auscultation Cardiovascular: RRR, no murmur, no edema Gastrointestinal (Abdomen): normal bowel sounds, soft, nontender, no hepatosplenomegaly Musculoskeletal: no cyanosis or clubbing, extremities motor strength 5/5 Extremities: + extremities abnormal to inspection (left shoulder wrapped, arm in sling, DENISE drain in place) Skin: no rashes, warm and dry Neurologic: patellar DTR's 2+ bilat, sensation intact and PERRL, EOMI, accommodation nl, no face palsy, no dysarthria Psychiatric: A+Ox3, euthymic affect Lymphatic: no cervical or axillary lymphadenopathy
[2018-12-22] MEDS ORDERED: POLYETHYLENE (MIRALAX) 17 GM PACK PO ONE (14:45)
[2018-12-22] MEDS: TRAMADOL HCL 50 MG TABLET PO PRN (18:01)
[2018-12-22] MEDS: VENLAFAXINE HCL XR 150 MG CAPXR PO SCH (20:22)
[2018-12-22] MEDS: TRAZODONE HCL 50 MG TAB PO SCH (20:24)
[2018-12-22] MEDS: OMEPRAZOLE 20 MG CAPCR PO SCH (20:25)
[2018-12-22] MEDS: SENNA 8.6 MG TAB PO SCH (20:25)
[2018-12-22] MEDS: ALLOPURINOL 100 MG TAB PO SCH (20:26)
[2018-12-22] MEDS ORDERED: TAMSULOSIN HCL 0.4 MG CAP PO SCH (21:00)
[2018-12-23] MEDS: TRAMADOL HCL 50 MG TABLET PO PRN ×2 (00:45→07:52)
[2018-12-23 06:11] LABS: Eosinophils # (auto) 0.03 K/uL (0-0.5); Eosinophils % (auto) 0.3 %; Hematocrit (blood only) 36.4 % (42-52); Immature Granulocytes # (auto) 0.01 K/uL (0.00-0.02); Immature Granulocytes % (auto) 0.1 %; Lymphocytes # (auto) 1.04 K/uL (1.2-3.4); Lymphocytes % (auto) 10.9 %; Mean Corpuscular Volume 92.2 fL (80-100); Mean Platelet Volume 9.6 fL (7.4-10.4); Monocytes # (auto) 1.04 K/uL (0.11-0.59); Monocytes % (auto) 10.9 %; Neutrophils # (auto) 7.43 K/uL (1.4-6.5); Neutrophils % (auto) 77.8 %; Platelet Count 170 K/uL (130-400); RDW Coefficient of Variation 13.9 % (11.5-14.5); RDW Standard Deviation 47.1 fL (36.4-46.3); Red Blood Count 3.95 M/uL (4.7-6.1); White Blood Count 9.55 K/uL (4.8-10.8)
[2018-12-23 06:42] LABS: Calcium 8.7 mg/dl (8.5-10.1); Creatinine Clr Calc Pharmacy 31.5 ml/min; Est GFR (African American) 34.7; Potassium 4.2 mmol/L (3.5-5.1)
--- NOTE | 2018-12-23 07:51 | Orthopedic Progress Note ---
Date of Service December 23, 2018 Assessment & Plan (1) DJD of left shoulder: POD #2, Left reversed TSA Limited PT/ OT- HEP ONLY D/C planning- Home w HEP today As per medicine- will continue flomax per medicine and follow up with PCP as outpatient. Subjective POD #2, Doing well, Denies SOB, CP, N/V, pain controlled well. Had to be straight cathed due to slow stream, put on Flomax and medicine recommended for 30 days. Patient states he has been voiding with no issues since the flomax ordered. Physical Exam 2 Vital Signs (Past 24 Hours): Last Vital Signs Temp 36.9 C 12/22/18 23:46 Pulse 76 12/22/18 23:46 Resp 16 12/22/18 23:46 BP 165/82 H 12/22/18 23:46 Pulse Ox 93 12/22/18 23:46 Physical Exam: Left shoulder dressing c/d/i, no draiange, fingers mobile, sling in tact, A&Ox3.
[2018-12-23] MEDS: MULTIVITAMIN TAB PO SCH (07:55)
[2018-12-23] MEDS: OMEPRAZOLE 20 MG CAPCR PO SCH (07:55)
[2018-12-23] MEDS: ATENOLOL 25 MG TABLET PO SCH (07:55)
[2018-12-23] MEDS: PRAZOSIN HCL 1 MG CAP PO SCH (07:56)
[2018-12-23] MEDS: FEXOFENADINE HCL 180 MG TAB PO SCH (07:56)
[2018-12-23] MEDS: FOLIC ACID 1 MG TAB PO SCH (07:57)
[2018-12-23] MEDS: THIAMINE HCL 100 MG TAB PO SCH (07:57)
[2018-12-23] MEDS: CYANOCOBALAMIN (VITAMIN B-12) 100 MCG TABLET PO SCH (07:57)
[2018-12-23] MEDS: BUDESONIDE/FORMOTEROL FUMARATE 160/4.5 60 PUFFS/INHALER INH SCH (07:58)
[2018-12-23] MEDS: DOCUSATE SODIUM 100 MG CAP PO SCH (08:01)
[2018-12-23] MEDS: HYDROCODONE/ACETAMOPHEN 5/325MG TAB PO PRN (10:06)
--- NOTE | 2018-12-25 11:26 | Discharge Summary ---
Date of Service January 04, 2019 Discharge Data Consultations 12/15/18 15:33 Consult Hospitalist Routine 12/21/18 16:20 Consult Case Management - Discharge Planning Routine Consult Hospitalist Routine Procedures Performed Operation Date: 12/21/18 11:35 Actual Procedures p Left Reversed Total Shoulder Arthroplasty(Left) - Chi Davila MD
--- NOTE | 2019-01-03 13:02 | Discharge Summary ---
HISTORY OF PRESENT ILLNESS: This is a 78-year-old male patient of Dr. Davila'donte complaining of chronic left shoulder pain and weakness, longstanding, progressively getting worse. He has failed conservative treatment and diagnosed with a left shoulder rotator cuff arthropathy and now has elected to proceed with a left reverse total shoulder arthroplasty. PAST MEDICAL HISTORY: Hypertension, asthma, sleep apnea, peripheral neuropathy, spine problems, neck problems, upper back problems, and sciatica. POSTOPERATIVE COURSE: The patient underwent a left reverse total shoulder arthroplasty on 12/21/2018. He was followed closely with medical consultation, limited physical therapy and pain control. The patient did have some urinary retention postoperative day #1. He was already on prazosin. The urinary retention did resolve on its own basically with no intervention. He was stable and discharged on postoperative day #2. PHYSICAL EXAMINATION: Left shoulder incision was clean, dry and intact. [place] are intact. Skin edges were approximated well. There was no redness or drainage. A good elbow, wrist, hand motion. Sling was intact. Neurologically and neurovascularly, he was intact in his left upper extremity. DIAGNOSES: Status post left reverse total shoulder arthroplasty, hypertension, asthma, sleep apnea, peripheral neuropathy, spine problems, neck problems, upper back problems, and sciatica. PLAN: The patient was discharged home with home exercises only. No formal physical therapy needed at this point in time. He will continue his preadmission medications with the addition of pain medication. He will follow up as an outpatient as scheduled.
== END 2018-12-23 12:15 | disposition home or self-care (01) | DRG 483 ==
LOC: ASU 08:12 → 3W 14:59

== ENCOUNTER 2019-05-24 17:27 | Observation (INO) ==
[2019-05-24] MEDS ORDERED: NITROGLYCERIN SL 0.4 MG/TAB TAB SL PRN ×2 (17:44→23:04)
[2019-05-24] MEDS ORDERED: SODIUM CHLORIDE 0.9% 500 ML IV SCH (17:45)
[2019-05-24 18:06] LABS: Basophils # (auto) 0.01 K/uL (0-0.2); Basophils % (auto) 0.1 %; Eosinophils # (auto) 0.15 K/uL (0-0.5); Eosinophils % (auto) 1.6 %; Hematocrit (blood only) 39.6 % (42-52); Hemoglobin 13.7 g/dL (14.0-18.0); Immature Granulocytes # (auto) 0.01 K/uL (0.00-0.02); Immature Granulocytes % (auto) 0.1 %; Lymphocytes # (auto) 2.15 K/uL (1.2-3.4); Lymphocytes % (auto) 23.6 %; Mean Corpuscular Hgb Conc 34.6 g/dL (32-36); Mean Corpuscular Volume 89.8 fL (80-100); Monocytes # (auto) 0.72 K/uL (0.11-0.59); Monocytes % (auto) 7.9 %; Neutrophils # (auto) 6.06 K/uL (1.4-6.5); Neutrophils % (auto) 66.7 %; Platelet Count 202 K/uL (130-400); RDW Coefficient of Variation 14.2 % (11.5-14.5); RDW Standard Deviation 46.5 fL (36.4-46.3); Red Blood Count 4.41 M/uL (4.7-6.1)
[2019-05-24 18:23] LABS: Alanine Aminotransferase 20 U/L (12-78); Aspartate Aminotransferase 18 U/L (15-37); BUN Creatinine Ratio 17.6 (10-20); Blood Urea Nitrogen 35 mg/dl (7-18); Calcium 8.8 mg/dl (8.5-10.1); Carbon Dioxide 24 mmol/L (21-32); Chloride 107 mmol/L (98-107); Creatinine Clr Calc Pharmacy 32.4 ml/min; Glucose 84 mg/dl (70-99); Potassium 3.8 mmol/L (3.5-5.1); Sodium 139 mmol/L (136-145)
[2019-05-24 18:27] LABS: Alkaline Phosphatase 69 U/L (45-117); Bilirubin,Total 0.4 mg/dl (0.2-1); Troponin I < 0.015 ng/ml (0-0.045)
--- NOTE | 2019-05-24 18:27 | XRay Report ---
XR chest 1V portable CLINICAL HISTORY: Atypical chest pain COMPARISON STUDY: 1018 FINDINGS: The heart is normal in size. Increased basilar markings, likely atelectatic. There is no ov ert failure. There is no lobar consolidation. There are no significant pleural effusions. There are b ilateral shoulder arthroplasties. There is an old left clavicular fracture. IMPRESSION: 1. AP portable study 2. No evidence of lobar consolidation 3. Increased basilar markings statistically atelectatic Electronically signed by: Andrew Golden M.D. 05/24/2019 6:26 PM
[2019-05-24] MEDS ORDERED: CLOPIDOGREL BISULFATE 75 MG TAB PO ONE (19:11)
--- NOTE | 2019-05-24 19:40 | History & Physical Report ---
Date of Service May 24, 2019 Assessment & Plan (1) Chest pain: Exertional, associated with shortness of breath and lightheadedness. Suspicious for cardiac angina. Continue beta-sujata and diltiazem. Plavix in place of aspirin due to aspirin allergy. Serial troponins and EKGs. Cardiac echo. Cardiology consultation Present on Admission?: Yes (2) Chronic kidney disease, stage 3: Monitor intake and output. Serial lab studies (3) Hypertension: Treated with atenolol, diltiazem, lisinopril, prazosin (4) COPD (chronic obstructive pulmonary disease): Stable. Continue inhaler therapy (5) DVT prophylaxis: Lovenox subcu History of Present Illness Chief Complaint: Chest pain and shortness of breath Primary Care Provider: Israel Patel MD 78-year-old male with no previous cardiac history was working on a deck today when he developed dull chest pain that radiated to the left jaw area and was associated with lightheadedness and shortness of breath. His brought him to the ED where his symptoms were relieved with one sublingual nitroglycerin tablets. Initial troponin is normal. Chest x-ray unremarkable. EKG reveals normal sinus rhythm with premature atrial contractions but no acute changes. He is asymptomatic at the time of my examination. He is allergic to aspirin and was given Plavix. He already is on a beta-sujata and calcium channel sujata. He is placed on observation status for further evaluation with serial troponins, serial EKGs, cardiac echo, cardiology consultation. Allergies Allergy/AdvReac Type Severity Reaction Status Date / Time aspirin Allergy Severe hives and Verified 05/24/19 19:07 mouth/throat swelling, hyperventilation ketorolac Allergy Unknown avoids Verified 05/24/19 19:07 secondary to aspirin component Pvmiqew-Qck-Swk Reductase AdvReac Intermediate severe Verified 05/24/19 19:07 Inhibitor muscle cramps oxycodone AdvReac Mild MENTAL Verified 05/24/19 19:07 STATUS CHANGES Home Medications Home Medications Medication Instructions Recorded Confirmed Type albuterol sulfate 2 puff INHALATION Q6H PRN 08/10/18 05/24/19 History allopurinol 100 mg PO QPM 08/10/18 05/24/19 History atenolol 25 mg PO QAM 08/10/18 05/24/19 History cyanocobalamin (vitamin B-12) 200 mcg PO QAM 08/10/18 05/24/19 History diltiazem HCl 180 mg PO QAM 08/10/18 05/24/19 History folic acid 1 mg PO QAM 08/10/18 05/24/19 History garlic 500 mg PO QPM 08/10/18 05/24/19 History prazosin 2 mg PO BID 08/10/18 05/24/19 History thiamine HCl (vitamin B1) 100 mg PO QAM 08/10/18 05/24/19 History fexofenadine 180 mg PO DAILY PRN 12/02/18 05/24/19 History budesonide-formoterol HFA 80 2 puffs INH BID 05/17/19 05/24/19 History mcg-4.5 mcg/actuation aerosol inhaler lisinopril 10 1 tab PO DAILY 05/17/19 05/24/19 History mg-hydrochlorothiazide 12.5 mg tablet mometasone 50 mcg/actuation nasal 2 sprays INTNAS DAILY PRN #17 gm 05/17/19 05/24/19 Rx spray omeprazole 20 mg capsule,delayed 20 mg PO DAILY 05/17/19 05/24/19 History release venlafaxine ER 150 mg 150 mg PO DAILY tab 05/17/19 05/24/19 History tablet,extended release 24 hr cyclobenzaprine 10 mg PO UD PRN 05/24/19 05/24/19 History guaifenesin [Mucinex] 600 mg PO DAILY PRN 05/24/19 05/24/19 History omega 9-bea-zhn-fish oil [Fish Oil] 1 cap PO BID 05/24/19 05/24/19 History Past Med/Surg History Medical History Bilateral sensorineural hearing loss (Acute) Vitamin B12 deficiency (Acute) Temporomandibular joint dysfunction syndrome (Acute) Sleep apnea (Acute) Seasonal allergies (Acute) Scoliosis (Acute) Rotator cuff arthropathy of left shoulder (Acute) Rotator cuff arthropathy (Acute) Proteinuria (Acute) Medial epicondylitis of right elbow (Acute) Lumbar radiculopathy (Acute) Lateral epicondylitis of right elbow (Acute) Injury of left rotator cuff (Acute) Hypertrophy of nasal turbinates (Acute) Hearing difficulty (Acute) Deviated nasal septum (Acute) Chronic kidney disease, stage 3 (Acute) Chronic back pain (Acute) Cervical radiculopathy (Acute) 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 (Acute) Anemia (Acute) Alcohol withdrawal (Acute) Alcohol dependence (Acute) History of difficult intubation C3-5 ACDF= 08/23/17= Grade view 2, Glidescope#4, ETT 8.0 (Head/neck neutral for intubation) at [facility] Anxiety Asthma STABLE Benign essential tremor HANDS Cancer COLON (CANCEROUS POLYP S/P RESECTION) Carotid artery stenosis S/P RIGHT CEA (08/2018) Chronic kidney disease CREATININE STABLE IN THE 1.9 RANGE X 6+ MONTHS Degenerative disc disease Depression GERD (gastroesophageal reflux disease) CONTROLLED Gout Hearing deficit Hyperlipidemia Hypertension Osteoarthritis Post traumatic stress disorder Surgical History History of cardiac cath 1990S - NO STENTS History of cervical spinal surgery C3-5 ACDF History of colonoscopy W/ POLYPECTOMY History of esophagogastroduodenoscopy (EGD) History of lumbar fusion L4-L5 History of right-sided carotid endarterectomy 08/11/18 AT [facility]= GRADE VIEW 1, MAC 3, ETT 7.5 (REINTUBATED 2/2 LEAK) History of tonsillectomy History of tooth extraction History of total knee replacement LEFT History of total shoulder replacement RIGHT Family History Sister Cancer Breast cancer Hypertension Brother Myocardial infarction COPD (chronic obstructive pulmonary disease) Hypertension Father Hypertension Mother Hypertension Social History Preferred Language: [place]ijani Communication Ability: Effective Visual Impairment: No Limitations Beliefs That Will Affect Care: None marital status: Current Living Situation: Spouse Feels Safe at Home: Yes Smoking Status: Never smoker Second Hand Exposure: No Hx Alcohol Use: No Hx Substance Use: No Review of Systems Review of Systems: Constitutional-no fever or chills ENT-no blurred vision, no double vision, no epistaxis, no sore throat Respiratory-no cough, no wheezing. Short of breath today with chest pain Cardiac-no palpitations, no syncope. Chest discomfort with exertion as described above GI-no nausea, vomiting, diarrhea, melena, hematochezia -no urinary retention, no urinary incontinence, no dysuria, no hematuria Musculoskeletal-no joint pain, no muscle tenderness Skin-no bruising, no rashes, no pruritus Neuro-no isolated weakness, no paresthesia, no weakness Psych-no depression, no anxiety Physical Exam Physical Exam: General-alert and oriented x3, no fevers, no chills HEENT-head atraumatic and normocephalic, TMs intact bilaterally, pupils equal and reactive to light, extraocular muscles intact Neck-no lymphadenopathy or thyromegaly, trachea midline Chest-clear to auscultation percussion. No rales wheezing or rhonchi Cardiac-regular rate and rhythm, normal S1 and S2, no JVD Abdomen-normal bowel sounds, nontender, no hepatosplenomegaly Extremities-no cyanosis, clubbing, or edema Neuro-cranial nerves II through XII intact, motor and sensory function within normal limits, strength symmetrical , no focal deficits Psych-normal affect, normal mood Results & Data Vital Signs (Past 12 Hours) Vital Signs Temp Pulse Resp BP Pulse Ox 05/24/19 18:31 53 L 20 96 05/24/19 18:30 54 L 12 149/78 H 92 05/24/19 18:20 52 L 13 98 05/24/19 18:10 51 L 17 99 05/24/19 18:01 58 L 14 96 05/24/19 18:00 59 L 18 141/76 H 95 05/24/19 17:56 74 19 119/80 96 05/24/19 17:50 61 21 119/80 96 05/24/19 17:47 96 05/24/19 17:45 69 22 98 05/24/19 17:44 58 L 19 176/89 H 98 05/24/19 17:35 36.9 C 62 20 157/77 H 96 Laboratory Results 05/24/19 17:49 05/24/19 17:49 PG Care Time/CCT Total # of Minutes Spent Total Time Spent with Patient: Total time spent is greater than 50% in coordination of care (as documented) at patient's floor/unit and/or counseling patient:
[2019-05-24] MEDS ORDERED: ALUMINUM/MAGNESIUM SUSP 30 ML UDC PO PRN (23:04)
[2019-05-24] MEDS ORDERED: FEXOFENADINE HCL 180 MG TAB PO PRN (23:04)
[2019-05-24] MEDS ORDERED: ALLOPURINOL 100 MG TAB PO SCH (23:04)
[2019-05-24] MEDS ORDERED: ALBUTEROL HFA 8 GM INHALER INH PRN (23:04)
[2019-05-24] MEDS ORDERED: ACETAMINOPHEN 325 MG TAB PO PRN (23:04)
[2019-05-24] MEDS ORDERED: MoRPHine SULFATE 2 MG/ML CARP IV PRN (23:04)
[2019-05-24] MEDS ORDERED: ONDANSETRON INJ 2 MG/ML 2 ML VIAL IV PRN (23:04)
--- NOTE | 2019-05-24 23:04 | Emergency Department Note ---
Entered by Isabela Oliveira acting as a scribe for History of Present Illness General Chief complaint: Chest Pain Stated complaint: CHEST PAIN Source: patient History of Present Illness Onset (ago): hour(s) 1 Location: chest Pain Consistency: + other (persistent) Maximum Pain Intensity: 6 Quality: + other (heaviness) Relieved By: not by medication (albuterol) Associated symptoms: + shortness of breath and + other (positive dizziness) Treatments prior to arrival: other (albulterol ) The patient is a 78 year old male with a PMHx of HTN, asthmawho presents to the Emergency Room with complaints of persistent chest pain that began at 1630, about one hour prior to arrival. The patient describes this pain as heaviness, and states that his pain radiates to his left shoulder blade and neck. The patient reports some shortness of breath and dizziness during this time. He states that he has a history of asthma, and states that he attempted to use his albuterol inhaler but states that this did not relieve his shortness of breath. The patient denies any recent trips and any history of blood clots. Home Medications Home Medications Medication Instructions Recorded Confirmed Type albuterol sulfate 2 puff INHALATION Q6H PRN 08/10/18 05/24/19 History allopurinol 100 mg PO QPM 08/10/18 05/24/19 History atenolol 25 mg PO QAM 08/10/18 05/24/19 History cyanocobalamin (vitamin B-12) 200 mcg PO QAM 08/10/18 05/24/19 History diltiazem HCl 180 mg PO QAM 08/10/18 05/24/19 History folic acid 1 mg PO QAM 08/10/18 05/24/19 History garlic 500 mg PO QPM 08/10/18 05/24/19 History prazosin 2 mg PO BID 08/10/18 05/24/19 History thiamine HCl (vitamin B1) 100 mg PO QAM 08/10/18 05/24/19 History fexofenadine 180 mg PO DAILY PRN 12/02/18 05/24/19 History budesonide-formoterol HFA 80 2 puffs INH BID 05/17/19 05/24/19 History mcg-4.5 mcg/actuation aerosol inhaler lisinopril 10 1 tab PO DAILY 05/17/19 05/24/19 History mg-hydrochlorothiazide 12.5 mg tablet mometasone 50 mcg/actuation nasal 2 sprays INTNAS DAILY PRN #17 gm 05/17/19 05/24/19 Rx spray omeprazole 20 mg capsule,delayed 20 mg PO DAILY 05/17/19 05/24/19 History release venlafaxine ER 150 mg 150 mg PO DAILY tab 05/17/19 05/24/19 History tablet,extended release 24 hr cyclobenzaprine 10 mg PO UD PRN 05/24/19 05/24/19 History guaifenesin [Mucinex] 600 mg PO DAILY PRN 05/24/19 05/24/19 History omega 5-vhe-ajh-fish oil [Fish Oil] 1 cap PO BID 05/24/19 05/24/19 History Allergies Allergy/AdvReac Type Severity Reaction Status Date / Time aspirin Allergy Severe hives and Verified 05/24/19 19:07 mouth/throat swelling, hyperventilation ketorolac Allergy Unknown avoids Verified 05/24/19 19:07 secondary to aspirin component Salfthr-Kva-Uug Reductase AdvReac Intermediate severe Verified 05/24/19 19:07 Inhibitor muscle cramps oxycodone AdvReac Mild MENTAL Verified 05/24/19 19:07 STATUS CHANGES Past Med/Surg History Medical History COPD (chronic obstructive pulmonary disease) (Chronic) Bilateral sensorineural hearing loss (Acute) Vitamin B12 deficiency (Acute) Temporomandibular joint dysfunction syndrome (Acute) Sleep apnea (Acute) Seasonal allergies (Acute) Scoliosis (Acute) Rotator cuff arthropathy of left shoulder (Acute) Rotator cuff arthropathy (Acute) Proteinuria (Acute) Medial epicondylitis of right elbow (Acute) Lumbar radiculopathy (Acute) Lateral epicondylitis of right elbow (Acute) Injury of left rotator cuff (Acute) Hypertrophy of nasal turbinates (Acute) Hearing difficulty (Acute) Deviated nasal septum (Acute) Chronic kidney disease, stage 3 (Chronic) Chronic back pain (Acute) Cervical radiculopathy (Acute) 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 (Acute) Anemia (Acute) Alcohol withdrawal (Acute) Alcohol dependence (Acute) History of difficult intubation C3-5 ACDF= 08/23/17= Grade view 2, Glidescope#4, ETT 8.0 (Head/neck neutral for intubation) at [facility] Hypertension (Chronic) Anxiety Asthma STABLE Benign essential tremor HANDS Cancer COLON (CANCEROUS POLYP S/P RESECTION) Carotid artery stenosis S/P RIGHT CEA (08/2018) Chronic kidney disease CREATININE STABLE IN THE 1.9 RANGE X 6+ MONTHS Degenerative disc disease Depression GERD (gastroesophageal reflux disease) CONTROLLED Gout Hearing deficit Hyperlipidemia Hypertension Osteoarthritis Post traumatic stress disorder Surgical History History of cardiac cath 1990S - NO STENTS History of cervical spinal surgery C3-5 ACDF History of colonoscopy W/ POLYPECTOMY History of esophagogastroduodenoscopy (EGD) History of lumbar fusion L4-L5 History of right-sided carotid endarterectomy 08/11/18 AT [facility]= GRADE VIEW 1, MAC 3, ETT 7.5 (REINTUBATED 2/2 LEAK) History of tonsillectomy History of tooth extraction History of total knee replacement LEFT History of total shoulder replacement RIGHT Family History Sister Cancer Breast cancer Hypertension Brother Myocardial infarction COPD (chronic obstructive pulmonary disease) Hypertension Father Hypertension Mother Hypertension Social History Preferred Language: [place] Communication Ability: Effective Visual Impairment: No Limitations Beliefs That Will Affect Care: None marital status: Current Living Situation: Spouse Feels Safe at Home: Yes Smoking Status: Never smoker Second Hand Exposure: No Hx Alcohol Use: No Hx Substance Use: No Review of Systems See HPI for pertinent positives & negatives. and A total of 10 systems reviewed and were otherwise negative Physical Exam Vital Signs Vital Signs - 24 hr 05/24/19 17:35 05/24/19 17:44 05/24/19 17:45 Temperature 36.9 C Temperature Source Oral Sepsis Recent Fever Within 48 Hours No Sepsis New/Unexplained Change in Mental Status No Sepsis Action Taken by Nursing No Action Required Pulse Rate 62 58 L 69 Pulse Rate from SpO2 Sensor 59 L 62 Pulse Rhythm Regular Pulse Strength Normal Respiratory Rate 20 19 22 Respiratory Effort / Characteristics Non-Labored Spontaneous Respiratory Depth Normal Respiratory Pattern Regular Blood Pressure 157/77 H 176/89 H Blood Pressure Mean 103 118 Blood Pressure Position Sitting Pulse Oximetry 96 98 98 Oxygen Delivery Method Room Air 05/24/19 17:47 05/24/19 17:50 05/24/19 17:56 Temperature Temperature Source Sepsis Recent Fever Within 48 Hours Sepsis New/Unexplained Change in Mental Status Sepsis Action Taken by Nursing Pulse Rate 61 74 Pulse Rate from SpO2 Sensor 62 74 Pulse Rhythm Pulse Strength Respiratory Rate 21 19 Respiratory Effort / Characteristics Respiratory Depth Respiratory Pattern Blood Pressure 119/80 119/80 Blood Pressure Mean 93 93 Blood Pressure Position Pulse Oximetry 96 96 96 Oxygen Delivery Method Room Air 05/24/19 18:00 05/24/19 18:01 05/24/19 18:10 Temperature Temperature Source Sepsis Recent Fever Within 48 Hours Sepsis New/Unexplained Change in Mental Status Sepsis Action Taken by Nursing Pulse Rate 59 L 58 L 51 L Pulse Rate from SpO2 Sensor 63 58 L 54 L Pulse Rhythm Pulse Strength Respiratory Rate 18 14 17 Respiratory Effort / Characteristics Respiratory Depth Respiratory Pattern Blood Pressure 141/76 H Blood Pressure Mean 97 Blood Pressure Position Pulse Oximetry 95 96 99 Oxygen Delivery Method 05/24/19 18:20 05/24/19 18:30 05/24/19 18:31 Temperature Temperature Source Sepsis Recent Fever Within 48 Hours Sepsis New/Unexplained Change in Mental Status Sepsis Action Taken by Nursing Pulse Rate 52 L 54 L 53 L Pulse Rate from SpO2 Sensor 53 L 54 L 53 L Pulse Rhythm Pulse Strength Respiratory Rate 13 12 20 Respiratory Effort / Characteristics Respiratory Depth Respiratory Pattern Blood Pressure 149/78 H Blood Pressure Mean 101 Blood Pressure Position Pulse Oximetry 98 92 96 Oxygen Delivery Method 05/24/19 18:45 05/24/19 18:50 05/24/19 19:00 Temperature Temperature Source Sepsis Recent Fever Within 48 Hours Sepsis New/Unexplained Change in Mental Status Sepsis Action Taken by Nursing Pulse Rate 55 L 55 L 56 L Pulse Rate from SpO2 Sensor Pulse Rhythm Pulse Strength Respiratory Rate 15 16 18 Respiratory Effort / Characteristics Respiratory Depth Respiratory Pattern Blood Pressure Blood Pressure Mean Blood Pressure Position Pulse Oximetry Oxygen Delivery Method 05/24/19 19:10 05/24/19 19:20 05/24/19 19:30 Temperature Temperature Source Sepsis Recent Fever Within 48 Hours Sepsis New/Unexplained Change in Mental Status Sepsis Action Taken by Nursing Pulse Rate 58 L 55 L 59 L Pulse Rate from SpO2 Sensor Pulse Rhythm Pulse Strength Respiratory Rate 13 17 17 Respiratory Effort / Characteristics Respiratory Depth Respiratory Pattern Blood Pressure 179/89 H Blood Pressure Mean 119 Blood Pressure Position Pulse Oximetry 96 Oxygen Delivery Method GENERAL: Sitting up in bed, in moderate distress, in gown. Alert, well nourished, no distress, non-toxic EYE EXAM: normal conjunctiva OROPHARYNX: no exudate, no erythema, lips, buccal mucosa, and tongue normal and mucous membranes are moist NECK: supple, no nuchal rigidity, no adenopathy, non-tender LUNGS: Clear to auscultation. Normal chest wall mechanics HEART: no murmurs, S1 normal and S2 normal ABDOMEN: abdomen soft, non-tender, normo-active bowel sounds, no masses, no rebound or guarding. BACK: Back is symmetrical on inspection and there is no deformity, no midline tenderness, no CVA tenderness. SKIN: no rashes and no bruising UPPER EXTREMITIES: Radial pulses are equal bilaterally. Upper extremities are grossly normal. LOWER EXTREMITIES: No pitting edema. Calves are equal bilaterally NEURO EXAM: Normal sensorium, cranial nerves II-XII grossly intact, normal speech, no gross weakness of arms, no gross weakness of legs. Course ED COURSE: Vital signs were reviewed and showed hypertensive The patients medical record was reviewed The above diagnostic studies were performed and reviewed. ED treatments and interventions as stated above. 1740: The patient was evaluated in room C2B. A complete history and physical examination was performed. 1844: Upon reevaluation, the patient is resting comfortably and states that his chest pain has resolved. I discussed my findings with the patient and he understands and agrees with the treatment plan. 1846: I discussed the case with Dr. Colmenares-[facility] Hospitalist who accepts the patient for further evaluation. Based on the patients age, coexisting illnesses, exam and lab findings the decision to treat as an inpatient was made. The patient remained stable while under my care. The patient will be evaluated for further management. Administered Medications Nitroglycerin (Nitrostat) 0.4 mg SL UD PRN PRN Reason: Chest Pain Stop: 06/23/19 17:43 Last Admin: 05/24/19 17:49 Dose: 0.4 mg Documented by: [id number] Discontinued Medications Clopidogrel Bisulfate (Plavix) 75 mg PO NOW ONE Stop: 05/24/19 19:12 Last Admin: 05/24/19 19:35 Dose: 75 mg Documented by: [id number] Sodium Chloride (Nss) 500 mls @ 999 mls/hr IV .Q31M HUMERA Stop: 05/24/19 18:15 Last Infusion: 05/24/19 18:39 Dose: 0 mls/hr Documented by: [id number] Admin: 05/24/19 17:52 Dose: 999 mls/hr Documented by: [id number] Medical Decision Making Differential Diagnosis Differential diagnoses includes but is not limited to acute coronary syndrome, myocardial infarction, pericarditis, pulmonary embolus, aortic dissection, pneumonia, pneumothorax, musculoskeletal, shingles, esophageal. Medical Records Attestation: I reviewed the patient's medical records. Home Medications Current Medication List: was personally reviewed by me Laboratory Data Attestation: I reviewed the patient's lab results. Result diagrams: 05/24/19 17:49 05/24/19 17:49 Lab Results 05/24/19 05/24/19 Range/Units 17:49 17:49 WBC 9.10 (4.8-10.8) K/uL RBC 4.41 L (4.7-6.1) M/uL Hgb 13.7 L (14.0-18.0) g/dL Hct 39.6 L (42-52) % MCV 89.8 (80-100) fL MCH 31.1 (25-34) pg MCHC 34.6 (32-36) g/dL RDW Std Deviation 46.5 H (36.4-46.3) fL RDW Coeff of Zelal[place] 14.2 (11.5-14.5) % Plt Count 202 (130-400) K/uL MPV 10.0 (7.4-10.4) fL Immature Gran % (Auto) 0.1 % Neut % (Auto) 66.7 % Lymph % (Auto) 23.6 % [place] % (Auto) 7.9 % Eos % (Auto) 1.6 % Baso % (Auto) 0.1 % Immature Gran # (Auto) 0.01 (0.00-0.02) K/uL Neut # (Auto) 6.06 (1.4-6.5) K/uL Lymph # (Auto) 2.15 (1.2-3.4) K/uL [place] # (Auto) 0.72 H (0.11-0.59) K/uL Eos # (Auto) 0.15 (0-0.5) K/uL Baso # (Auto) 0.01 (0-0.2) K/uL Sodium 139 (136-145) mmol/L Potassium 3.8 (3.5-5.1) mmol/L Chloride 107 (98-107) mmol/L Carbon Dioxide 24 (21-32) mmol/L Anion Gap 8.0 (3-11) BUN 35 H (7-18) mg/dl Creatinine 2.00 H (0.6-1.4) mg/dl Est Cr Clr Drug Dosing 32.4 ml/min Est GFR ( Amer) 36.0 Est GFR (Non-Af Amer) 31.0 BUN/Creatinine Ratio 17.6 (10-20) Glucose 84 (70-99) mg/dl Calcium 8.8 (8.5-10.1) mg/dl Total Bilirubin 0.4 (0.2-1) mg/dl AST 18 (15-37) U/L ALT 20 (12-78) U/L Alkaline Phosphatase 69 (45-117) U/L Troponin I < 0.015 (0-0.045) ng/ml Total Protein 6.0 L (6.4-8.2) gm/dl Albumin 3.0 L (3.4-5.0) gm/dl Globulin 3.0 (2.5-4.0) gm/dl Albumin/Globulin Ratio 1.0 (0.9-2) Lipase 127 (73-393) U/L Imaging Data Radiologist's Impression: Radiology results as stated below per my review and the radiologist's interpretation: XR chest 1V portable CLINICAL HISTORY: Atypical chest pain COMPARISON STUDY: 1018 FINDINGS: The heart is normal in size. Increased basilar markings, likely atelectatic. There is no overt failure. There is no lobar consolidation. There are no significant pleural effusions. There are bilateral shoulder arthroplasties. There is an old left clavicular fracture. IMPRESSION: 1. AP portable study 2. No evidence of lobar consolidation 3. Increased basilar markings statistically atelectatic Electronically signed by: Andrew Golden M.D. 05/24/2019 6:26 PM ECG Data Attestation: I personally reviewed and interpreted this ECG as follows: Indication: chest pain Rate (beats per minute): 62 Rhythm: sinus with SA Findings: + other (normal axis ); no PVC Blood Pressure Blood Pressure Findings: Elevated blood pressure Blood Pressure Disposition: elevated BP felt to be situational MDM Narrative Patient is a 78-year-old male who presents the ER for chest pain while he was building a deck. He describes as a heaviness associate with shortness of breath and some left-sided trapezius tenderness. Labs were obtained he was mildly hypertensive. Labs show no significant leukocytosis or anemia. BMP with a creatinine of 2.0 consistent with previous. LFTs bilirubin and troponin was negative. Lipase was unremarkable. EKG with no acute ischemia. Patient declined aspirin secondary to an allergy. He was given nitro and had complete r esolution of his chest pain. With his history of hypertension and CKD I did feel it was prudent to monitor him overnight especially with his history. Patient was updated bedside discussed with the hospitalist for observation. He was admitted chest pain-free. Impression & Plan Chest pain, precordial, Shortness of breath, CKD (chronic kidney disease) Discharge Plan Visit Data *Final* Discharge Date/Time: 05/24/19 22:25 Chief Complaint: Chest Pain Stated Complaint: CHEST PAIN ED Provider: Shaheen Hernandez Discharge Problem: Chest pain, precordial, Shortness of breath, CKD (chronic kidney disease) Patient Disposition: Admitted As Inpatient Discharge Instructions Interventions: ED Discharge Assessment Last Done: 05/24/19 22:25 Discharge Problem: CKD (chronic kidney disease) Qualifiers: Chronic kidney disease stage: unspecified stage Qualified Code(s): N18.9 - Chronic kidney disease, unspecified The scribe's documentation has been prepared under my direction and personally reviewed by me in its entirety. I confirm that the note above accurately reflects all work, treatment, procedures, and medical decision making performed by me.
[2019-05-24] MEDS: BUDESONIDE/FORMOTEROL FUMARATE 80/4.5 60 PUFFS/INHALER INH SCH (23:35)
[2019-05-24] MEDS: PRAZOSIN HCL 1 MG CAP PO SCH (23:35)
[2019-05-24] MEDS: OMEGA-3 (PURIFIED FISH OIL) 1 GM CAP PO SCH (23:36)
[2019-05-25 07:16] LABS: Prothrombin Time 10.2 Seconds (9.0-12.0)
[2019-05-25 07:30] LABS: BUN Creatinine Ratio 16.5 (10-20); Calcium 8.5 mg/dl (8.5-10.1); Creatinine Clr Calc Pharmacy 37.5 ml/min; Est GFR (African American) 43.2; Est GFR (Non-African American) 37.3; Potassium 4.4 mmol/L (3.5-5.1)
[2019-05-25] MEDS ORDERED: PANTOprazole 40 MG TAB PO SCH (09:00)
[2019-05-25] MEDS ORDERED: FOLIC ACID 1 MG TAB PO SCH (09:00)
[2019-05-25] MEDS ORDERED: THIAMINE HCL 100 MG TAB PO SCH (09:00)
[2019-05-25] MEDS ORDERED: LISINOPRIL/HCTZ 10/12.5MG TAB PO SCH (09:00)
[2019-05-25] MEDS ORDERED: ATENOLOL 25 MG TABLET PO SCH (09:00)
[2019-05-25] MEDS ORDERED: ENOXAPARIN INJ 40 MG/0.4 ML SYR SQ SCH (09:00)
[2019-05-25] MEDS ORDERED: CYANOCOBALAMIN (VITAMIN B-12) 100 MCG TABLET PO SCH (09:00)
[2019-05-25] MEDS ORDERED: VENLAFAXINE HCL XR 150 MG CAPXR PO SCH (09:00)
[2019-05-25] MEDS: PRAZOSIN HCL 1 MG CAP PO SCH (09:19)
[2019-05-25] MEDS: OMEGA-3 (PURIFIED FISH OIL) 1 GM CAP PO SCH (09:19)
[2019-05-25] MEDS: BUDESONIDE/FORMOTEROL FUMARATE 80/4.5 60 PUFFS/INHALER INH SCH (09:24)
--- NOTE | 2019-05-25 09:41 | Cardiology Consultation ---
Date of Consultation May 25, 2019 Assessment & Plan (1) Chest pain: 2. Hypertension 3. Dyslipidemia 4. Carotid artery stenosis s/p right carotid endarterectomy 5. ALEXSANDRA - intolerant of CPAP 6. Asthma 7. Chronic kidney disease Patient presented to the ED yesterday with complaints of chest heaviness with associated left jaw pain, shortness of breath, nausea, diaphoresis, and lightheadedness. His symptoms began when working outside and were relieved within 10 minutes of sublingual nitro in the ED. The episode lasted about an hour in duration altogether. His cardiac enzymes have been negative and ECGs show no acute ischemic changes. Given his cardiovascular risk factors and the concerning nature of his symptoms, recommend further evaluation of myocardial ischemia with a stress test. The patient does not feel as though he can walk on a treadmill due to knee pain and will therefore be ordered a dobutamine stress echo. Further recommendations pending the results of the stress test. Patient discussed with Dr. Bosch who will also be in to see the patient today. Supervising Physician Co-Signing Physician Notes Stress echo was negative for ischemia. Pt was discharged before I was available for my personal evaluation. History of Present Illness Reason for Consultation: Chest pain Requesting Physician: Dr. Colmenares History of Present Illness Mr. Arteaga is a 78-year-old male with no prior cardiac history who was admitted yesterday in the setting of chest pain. 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 He states that around 4:30 pm, while working outside, he developed discomfort in this chest described as a heaviness. He also noted pain in his left jaw. He had associated shortness of breath, nausea, diaphoresis, and lightheadedness with the discomfort. He thought that perhaps his symptoms were related to his asthma and therefore used his rescue inhaler. The inhaler helped with his breathing, but not with his chest discomfort or other symptoms. He therefore decided to go to the ED for further evaluation. He was given sublingual nitro in the ED, and he reports that his discomfort and other symptoms resolved within 10 minutes of the nitro. He states that he has not had this chest discomfort before or since the episode yesterday. He states that he is usually pretty active. He is busy outside gardening and doing other yard work during the summer months. He denies chest discomfort or other anginal type symptoms with this activity. He denies orthopnea, PND, or edema. He denies palpitations. He has not had a syncopal event. He denies abno rmal bleeding such as melena, hematochezia, or hematuria. He denies cerebrovascular symptoms. As noted in HPI. All other ROS are reviewed and otherwise negative at this time. PMH: 1. Hypertension 2. Dyslipidemia 3. Chronic kidney disease 4. ALEXSANDRA - intolerant of CPAP 5. GERD 6. Asthma 7. Depression 8. Cervical spinal stenosis s/p cervical vertebral fusion 9. Lumbar spinal stenosis s/p laminectomy 10. Gout 11. BPH 12. Carotid artery stenosis s/p right carotid endarterectomy 13. Left knee replacement 14. Bilateral shoulder replacement Family hx: No history of premature CAD. Social hx: He is and remarried. He has 4 children and 2 stepchildren. He spent 12 years in the . 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 He smoked for about 20 years at up to 1.5 ppd but he quit in the late 1970s. He denies alcohol or illicit drug use. Allergies Allergy/AdvReac Type Severity Reaction Status Date / Time aspirin Allergy Severe hives and Verified 05/24/19 19:07 mouth/throat swelling, hyperventilation ketorolac Allergy Unknown avoids Verified 05/24/19 19:07 secondary to aspirin component Uhjuzsl-Lao-Uzf Reductase AdvReac Intermediate severe Verified 05/24/19 19:07 Inhibitor muscle cramps oxycodone AdvReac Mild MENTAL Verified 05/24/19 19:07 STATUS CHANGES Home Medications Home Medications Medication Instructions Recorded Confirmed Type albuterol sulfate 2 puff INHALATION Q6H PRN 08/10/18 05/24/19 History allopurinol 100 mg PO QPM 08/10/18 05/24/19 History atenolol 25 mg PO QAM 08/10/18 05/24/19 History cyanocobalamin (vitamin B-12) 200 mcg PO QAM 08/10/18 05/24/19 History diltiazem HCl 180 mg PO QAM 08/10/18 05/24/19 History folic acid 1 mg PO QAM 08/10/18 05/24/19 History garlic 500 mg PO QPM 08/10/18 05/24/19 History prazosin 2 mg PO BID 08/10/18 05/24/19 History thiamine HCl (vitamin B1) 100 mg PO QAM 08/10/18 05/24/19 History fexofenadine 180 mg PO DAILY PRN 12/02/18 05/24/19 History budesonide-formoterol HFA 80 2 puffs INH BID 05/17/19 05/24/19 History mcg-4.5 mcg/actuation aerosol inhaler lisinopril 10 1 tab PO DAILY 05/17/19 05/24/19 History mg-hydrochlorothiazide 12.5 mg tablet mometasone 50 mcg/actuation nasal 2 sprays INTNAS DAILY PRN #17 gm 05/17/19 05/24/19 Rx spray omeprazole 20 mg capsule,delayed 20 mg PO DAILY 05/17/19 05/24/19 History release venlafaxine ER 150 mg 150 mg PO DAILY tab 05/17/19 05/24/19 History tablet,extended release 24 hr cyclobenzaprine 10 mg PO UD PRN 05/24/19 05/24/19 History guaifenesin [Mucinex] 600 mg PO DAILY PRN 05/24/19 05/24/19 History omega 8-jeh-ezy-fish oil [Fish Oil] 1 cap PO BID 05/24/19 05/24/19 History Patient History Medical History COPD (chronic obstructive pulmonary disease) (Chronic) Bilateral sensorineural hearing loss (Acute) Vitamin B12 deficiency (Acute) Temporomandibular joint dysfunction syndrome (Acute) Sleep apnea (Acute) Seasonal allergies (Acute) Scoliosis (Acute) Rotator cuff arthropathy of left shoulder (Acute) Rotator cuff arthropathy (Acute) Proteinuria (Acute) Medial epicondylitis of right elbow (Acute) Lumbar radiculopathy (Acute) Lateral epicondylitis of right elbow (Acute) Injury of left rotator cuff (Acute) Hypertrophy of nasal turbinates (Acute) Hearing difficulty (Acute) Deviated nasal septum (Acute) Chronic kidney disease, stage 3 (Chronic) Chronic back pain (Acute) Cervical radiculopathy (Acute) 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 (Acute) Anemia (Acute) Alcohol withdrawal (Acute) Alcohol dependence (Acute) History of difficult intubation C3-5 ACDF= 08/23/17= Grade view 2, Glidescope#4, ETT 8.0 (Head/neck neutral for intubation) at [facility] Hypertension (Chronic) Anxiety Asthma STABLE Benign essential tremor HANDS Cancer COLON (CANCEROUS POLYP S/P RESECTION) Carotid artery stenosis S/P RIGHT CEA (08/2018) Chronic kidney disease CREATININE STABLE IN THE 1.9 RANGE X 6+ MONTHS Degenerative disc disease Depression GERD (gastroesophageal reflux disease) CONTROLLED Gout Hearing deficit Hyperlipidemia Hypertension Osteoarthritis Post traumatic stress disorder Surgical History History of cardiac cath 1990S - NO STENTS History of cervical spinal surgery C3-5 ACDF History of colonoscopy W/ POLYPECTOMY History of esophagogastroduodenoscopy (EGD) History of lumbar fusion L4-L5 History of right-sided carotid endarterectomy 08/11/18 AT [facility]= GRADE VIEW 1, MAC 3, ETT 7.5 (REINTUBATED 2/2 LEAK) History of tonsillectomy History of tooth extraction History of total knee replacement LEFT History of total shoulder replacement RIGHT Family History Sister Cancer Breast cancer Hypertension Brother Myocardial infarction COPD (chronic obstructive pulmonary disease) Hypertension Father Hypertension Mother Hypertension Social History Preferred Language: E[place] Communication Ability: Effective Visual Impairment: No Limitations Fire Warden Required: No Beliefs That Will Affect Care: None marital status: Current Living Situation: Spouse Feels Safe at Home: Yes Smoking Status: Former smoker Second Hand Exposure: No Hx Alcohol Use: No Hx Substance Use: No Physical Exam Physical Exam: Constitutional: Alert, oriented, in no acute distress HEENT: Head is atraumatic and normocephalic. EOMs intact. Sclera non-icteric. Face is symmetric. No perioral cyanosis. Mucous membranes moist Neck: Supple, no JVD Pulmonary: Normal respiratory effort, clear to auscultation throughout Cardiac: Regular rate and rhythm, normal S1 and S2, no gallops, no rubs, no murmurs Extremities: No edema. No clubbing or cyanosis. Pulses 2+ and symmetric Abdomen: Normal bowel sounds, soft, non-tender, no abdominal masses palpated Skin: Normal skin color, turgor, and pigmentation. No rash or skin lesions Neurological: Oriented to person, place, and time Results & Data Vital Signs (Past 12 Hours) Vital Signs Temp Pulse Pulse Resp BP BP BP 05/25/19 07:20 58 L 05/25/19 07:05 36.9 C 62 18 152/85 H 05/25/19 02:44 36.7 C 66 18 116/66 05/24/19 23:02 36.4 C L 50 L 16 182/74 H 05/24/19 22:01 51 L 19 05/24/19 22:00 52 L 17 160/74 H 05/24/19 21:50 53 L 21 05/24/19 21:40 54 L 16 Pulse Ox 05/25/19 07:20 05/25/19 07:05 93 05/25/19 02:44 97 05/24/19 23:02 96 05/24/19 22:01 05/24/19 22:00 05/24/19 21:50 05/24/19 21:40 Laboratory Results Laboratory Results WBC 9.10 K/uL (4.8-10.8) 05/24/19 17:49 RBC 4.41 M/uL (4.7-6.1) L 05/24/19 17:49 Hgb 13.7 g/dL (14.0-18.0) L 05/24/19 17:49 Hct 39.6 % (42-52) L 05/24/19 17:49 MCV 89.8 fL (80-100) 05/24/19 17:49 MCH 31.1 pg (25-34) 05/24/19 17:49 MCHC 34.6 g/dL (32-36) 05/24/19 17:49 RDW Std Deviation 46.5 fL (36.4-46.3) H 05/24/19 17:49 RDW Coeff of Zelal[place] 14.2 % (11.5-14.5) 05/24/19 17:49 Plt Count 202 K/uL (130-400) 05/24/19 17:49 MPV 10.0 fL (7.4-10.4) 05/24/19 17:49 Immature Gran % (Auto) 0.1 % 05/24/19 17:49 Neut % (Auto) 66.7 % 05/24/19 17:49 Lymph % (Auto) 23.6 % 05/24/19 17:49 [place] % (Auto) 7.9 % 05/24/19 17:49 Eos % (Auto) 1.6 % 05/24/19 17:49 Baso % (Auto) 0.1 % 05/24/19 17:49 Immature Gran # (Auto) 0.01 K/uL (0.00-0.02) 05/24/19 17:49 Neut # (Auto) 6.06 K/uL (1.4-6.5) 05/24/19 17:49 Lymph # (Auto) 2.15 K/uL (1.2-3.4) 05/24/19 17:49 [place] # (Auto) 0.72 K/uL (0.11-0.59) H 05/24/19 17:49 Eos # (Auto) 0.15 K/uL (0-0.5) 05/24/19 17:49 Baso # (Auto) 0.01 K/uL (0-0.2) 05/24/19 17:49 PT 10.2 Seconds (9.0-12.0) 05/25/19 06:50 INR 1.0 (0.9-1.1) 05/25/19 06:50 Sodium 142 mmol/L (136-145) 05/25/19 06:50 Potassium 4.4 mmol/L (3.5-5.1) D 05/25/19 06:50 Chloride 111 mmol/L (98-107) H 05/25/19 06:50 Carbon Dioxide 26 mmol/L (21-32) 05/25/19 06:50 Anion Gap 5.0 (3-11) 05/25/19 06:50 BUN 28 mg/dl (7-18) H 05/25/19 06:50 Creatinine 1.72 mg/dl (0.6-1.4) H 05/25/19 06:50 Est Cr Clr Drug Dosing 37.5 ml/min 05/25/19 06:50 Est GFR ( Amer) 43.2 05/25/19 06:50 Est GFR (Non-Af Amer) 37.3 05/25/19 06:50 BUN/Creatinine Ratio 16.5 (10-20) 05/25/19 06:50 Glucose 84 mg/dl (70-99) 05/25/19 06:50 Calcium 8.5 mg/dl (8.5-10.1) 05/25/19 06:50 Total Bilirubin 0.4 mg/dl (0.2-1) 05/24/19 17:49 AST 18 U/L (15-37) 05/24/19 17:49 ALT 20 U/L (12-78) 05/24/19 17:49 Alkaline Phosphatase 69 U/L (45-117) 05/24/19 17:49 Troponin I < 0.015 ng/ml (0-0.045) 05/25/19 06:50 Total Protein 6.0 gm/dl (6.4-8.2) L 05/24/19 17:49 Albumin 3.0 gm/dl (3.4-5.0) L 05/24/19 17:49 Globulin 3.0 gm/dl (2.5-4.0) 05/24/19 17:49 Albumin/Globulin Ratio 1.0 (0.9-2) 05/24/19 17:49 Lipase 127 U/L (73-393) 05/24/19 17:49 Diagnostic Findings CXR: 1. AP portable study 2. No evidence of lobar consolidation 3. Increased basilar markings statistically atelectatic ECG 05/24/19: Sinus rhythm with PACs. 62 bpm. ECG 05/25/19: Sinus rhythm at 61 bpm. Telemetry: Sinus rhythm in the 50s-60s.
[2019-05-25] MEDS ORDERED: ATROPINE SULFATE 0.1 MG/ML 10ML SYR IV ONE (11:10)
[2019-05-25] MEDS ORDERED: METOPROLOL TARTRATE 1 MG/ML VIAL IV ONE ×3 (11:10→11:51)
[2019-05-25] MEDS ORDERED: DOBUTamine HCL 12.5 MG/ML 20 ML VIAL IV ONE (11:10)
[2019-05-25] MEDS ORDERED: PERFLUTREN LIPID MICROSPHERE (DEFINITY) IV ONE (11:59)
--- NOTE | 2019-05-25 16:17 | Discharge Summary ---
Date of Service May 25, 2019 Admission HPI Per Admitting Provider 78-year-old male with no previous cardiac history was working on a deck today when he developed dull chest pain that radiated to the left jaw area and was associated with lightheadedness and shortness of breath. His brought him to the ED where his symptoms were relieved with one sublingual nitroglycerin tablets. Initial troponin is normal. Chest x-ray unremarkable. EKG reveals normal sinus rhythm with premature atrial contractions but no acute changes. He is asymptomatic at the time of my examination. He is allergic to aspirin and was given Plavix. He already is on a beta-sujata and calcium channel sujata. He is placed on observation status for further evaluation with serial troponins, serial EKGs, cardiac echo, cardiology consultation. Principal Diagnosis Chest pain Discharge Exam Constitutional WD/WN, vitals as above Eyes PERRL, conjunctivae normal, anicteric sclerae ENMT external ear and nose normal, oropharynx normal Neck trachea midline, no thyromegaly Respiratory normal respiratory effort, lungs clear to auscultation Cardiovascular RRR, no murmur, no edema Gastrointestinal (Abdomen) normal bowel sounds, soft, nontender, no hepatosplenomegaly Musculoskeletal no cyanosis or clubbing, extremities motor strength 5/5 Skin no rashes, warm and dry Neurologic patellar DTR's 2+ bilat, sensation intact and PERRL, EOMI, accommodation nl, no face palsy, no dysarthria Psychiatric A+Ox3, euthymic affect Lymphatic no cervical or axillary lymphadenopathy Discharge Data Allergies Allergy/AdvReac Type Severity Reaction Status Date / Time aspirin Allergy Severe hives and Verified 05/24/19 19:07 mouth/throat swelling, hyperventilation ketorolac Allergy Unknown avoids Verified 05/24/19 19:07 secondary to aspirin component Diovowp-Qeb-Epe Reductase AdvReac Intermediate severe Verified 05/24/19 19:07 Inhibitor muscle cramps oxycodone AdvReac Mild MENTAL Verified 05/24/19 19:07 STATUS CHANGES Consultations 05/24/19 18:43 ED Decision to Admit Stat 05/24/19 23:04 Consult Cardiology Routine Hospital Course (1) Chest pain: Exertional, associated with shortness of breath and lightheadedness. Suspicious for cardiac angina. Continue beta-sujata and diltiazem. Plavix in place of aspirin due to aspirin allergy. troponin negative x 3 sets, no ischemic changes on EKG no reported chest pain this morning dobutamine stress echo performed reached more than maximum HR no chest pain or EKG changes during the stress echocardiogram appeared normal d/c to home, likely the chest pain muscular as he was building a deck, lifting heavy objects in the heat (2) Chronic kidney disease, stage 3: Cr stable during his stay (3) Hypertension: Treated with atenolol, diltiazem, lisinopril, prazosin BP stable (4) COPD (chronic obstructive pulmonary disease): Stable. Continue inhaler therapy (5) DVT prophylaxis: Lovenox subcu Total Time Total Time Spent Total Time Spent (In Minutes): 25 minutes Total Time Includes: Examination of the Patient, Discharge Planning, Medication Reconciliation and Communication With Other Providers (Dr. Bosch) Discharge Plan Discharge Items Patient Disposition: Home - Self-Care Reason For Visit: CHEST PAIN Discharge Diagnosis: Chest pain negative stress echocardiogram Condition: Good Discharge Goals: Decrease discomfort and Improve function Activity: Resume your previous activity Non-emergency contact: Primary Care Provider Call non-emergency contact if: you have any medication questions, your symptoms worsen and you have a fever Follow-up/Referrals: Ronaldo Patel MD [Primary Care Provider] - Diet: Heart Healthy Addtl Provider Instructions: Medications: no changes Chest pain no evidence of acute heart attack, troponin (heart enzyme) negative x 3 sets stress echocardiogram was normal no evidence that this pain was due to heart, clear to go home FOLLOW UP - Dr. Patel in one week, call for appt Prescriptions: Continued lisinopril-hydrochlorothiazide 10-12.5 mg tablet 1 tab PO DAILY RF: 0 omeprazole 20 mg capsule,delayed release(DR/EC) 20 mg PO DAILY RF: 0 Symbicort 80-4.5 mcg/actuation HFA aerosol inhaler 2 puffs INH BID RF: 0 mometasone 50 mcg/actuation spray,non-aerosol 2 sprays INTNAS DAILY PRN (Reason: allergy symptoms) Qty: 17 RF: 11 cyanocobalamin (vitamin B-12) 100 mcg Tablet 200 mcg PO QAM RF: 0 thiamine HCl (vitamin B1) 100 mg Tablet 100 mg PO QAM RF: 0 allopurinol 100 mg Tablet 100 mg PO QPM RF: 0 folic acid 1 mg Tablet 1 mg PO QAM RF: 0 albuterol sulfate 90 mcg/actuation Hfa Aerosol Inhaler 2 puff INHALATION Q6H PRN (Reason: Shortness Of Breath) RF: 0 diltiazem HCl 180 mg Capsule,Ext.Rel 24h Degradable 180 mg PO QAM RF: 0 prazosin 2 mg Capsule 2 mg PO BID RF: 0 garlic Tablet 500 mg PO QPM RF: 0 atenolol 25 mg Tablet 25 mg PO QAM RF: 0 venlafaxine 150 mg tablet extended release 24hr 150 mg PO DAILY RF: 0 cyclobenzaprine 10 mg Tablet 10 mg PO UD PRN (Reason: MUSCLE SPASMS) RF: 0 omega 0-xti-jpv-fish oil [Fish Oil] 1,000 mg (120 mg-180 mg) Capsule 1 cap PO BID RF: 0 guaifenesin [Mucinex] 600 mg Tablet Extended Release 12hr 600 mg PO DAILY PRN (Reason: Congestion) RF: 0 fexofenadine 180 mg Tablet 180 mg PO DAILY PRN (Reason: ALLERGIES) RF: 0 Stand-Alone Forms: Call Back Authorization, [facility] Discharge Orders: Discharge Order (Routine); Ordered 05/25/19 Ordered By: Carloz Alejandro Admission Data Admit Date/Time: 05/24/19 19:33 Attending Provider: Carloz Alejandro Admit Provider: Des Colmenares Primary Care Provider: Ronaldo Patel Other Providers: Des Colmenares ; Kev Fried ; Jin Carlson ; Edu Llanos ; Nemesio Disla ; Fernando Lam Jr ; Delmar Bosch ; Dhara [place] ; Marianela Chacon ; Ronaldo Carrion ; Ronaldo Vines ; De Steen ; Des Saeed ; Stacy Umaña ; Flor Guzman Service: Telemetry Other Interventions: Discharge Summary Assessment (RN) Last Done: 05/25/19 12:39 DC Date/Time DO NOT enter until pt leaves facility: 05/25/19 12:51
== END 2019-05-25 12:51 | disposition home or self-care (01) ==
LOC: ED 17:27 → 2S 17:27 → SUATTDRO 19:33 → 2S 22:25

== ENCOUNTER 2021-10-27 15:04 | Inpatient (IN) ==
--- NOTE | 2021-10-27 15:08 | Emergency Department Note ---
Impression & Plan Symptomatic bradycardia, Tobacco use, Dizziness, CKD (chronic kidney disease) stage 4, GFR 15-29 ml/min ED Provider Note NAME: RUPERT FLORES AGE: 81 SEX: M : 1940 ARRIVES VIA: Ambulance INFORMANT: Patient, ED PROVIDER(S): Marin Macias MD Chief Complaint: Presyncope, bradycardia HPI: Patient does present from home via EMS due to concerns for presyncope and bradycardia. The patient denies any fevers or chills. Patient states that he woke up around 6:00 this morning and made some coffee and some eggs. Patient states that when he was standing up and walking he did have some associated mild chest discomfort and was feeling lightheaded almost as if he was going to pass out. There was an EMS call after weakness and when they arrived they noted the patient to be bradycardic. He was given atropine placed on a nonrebreather although the patient was not reportedly hypoxic and the patient did receive IV fluids. The patient states that he feels much improved. Patient denies any alcohol use but does chew tobacco. Patient is vaccinated for COVID-19 including booster. Patient denies any current chest pains or shortness of breath. Patient did have associated bilateral upper remedy tingling which occurred earlier today and patient states that this is chronic but was worse today. It is improved. Patient states he has no chest discomfort at this time. Patient denies any nausea vomiting or diarrhea. Patient denies any supplements or stimulants. Patient does drink coffee. Patient denies any heart history. The patient denies any current shortness of breath or lower extremity swelling. ROS: See HPI for pertinent positives and negatives. A total of 10 systems were reviewed and otherwise negative. Past medical history: See below Surgical history: See below Social history: See below Physical Exam: GENERAL: NAD, wearing a mask, non-toxic. EYE EXAM: Normal conjunctiva. PERRL, no anisocoria and EOM's grossly intact w/o pain. NECK: Supple, no nuchal rigidity, no adenopathy, non-tender. No signs of meningismus. LUNGS: Clear to auscultation. Normal chest wall mechanics. HEART: NSR, no MRG. ABDOMEN: Abdomen soft, non-tender, normo-active bowel sounds, no masses, no rebound or guarding. BACK: No CVA TTP. SKIN: No rashes and no bruising. UPPER EXTREMITIES: Upper extremities are grossly normal. LOWER EXTREMITIES: Grossly normal, no edema. NEURO EXAM: A&O x3, cranial nerves II-XII grossly intact, normal speech, moves all 4 extremities on command w/o issue. Differential diagnoses: Premature contractions, electrolyte abnormality, cardiac dysrhythmia, thyroid dysfunction, pulmonary embolism, infection, gastrointestinal, as well as other pathologies. Course: Patient was seen and evaluated the bedside. Full history physical exam was performed. EKG interpreted by me Normal sinus rhythm, rate of 72, normal intervals, normal axis, no obvious ST changes. EKG does not show any remarkable changes from comparison EKG May 25, 2019. Imaging Studies: See Below Cardiac monitoring: An order was placed for continuous cardiac monitoring. The monitor shows a rate of 82 with sinus rhythm. MDM: He was seen due to concern for symptomatic bradycardia and had been administered atropine prior to arrival. The patient did have pacer pads placed upon arrival to the emergency department. The patient is on diltiazem as well as atenolol which may be somewhat contributory. Patient did receive additional IV fluids blood work is obtained along with an EKG troponin chest x-ray. EKG does not show any current bradycardia. Patient has normal white count H&H and platelet co unt. Kidney function at baseline with CKD stage IV creatinine clearance 28. Creatinine today is 2.1 and has ranged anywhere from 1 sevens to greater than 2 in the last several years. Covid negative. Chest x-ray is clear. I did update the patient the patient's family member at bedside. I did speak the on-call hospitalist Krystal Nielsen PA-C and the patient was admitted by Dr. Douglas. Past Med/Surg History Medical History Alcohol dependence QUIT 2019 Anxiety and depression Arthritis Asthma using PRN inh multiple x daily at present. recent asthma attack 1 mo ago; completed steroid taper. Benign essential tremor HANDS BPH (benign prostatic hyperplasia) Carotid artery stenosis S/P RIGHT CEA (08/2018) Cervical facet joint syndrome Chronic back pain Chronic kidney disease, stage 3 COPD (chronic obstructive pulmonary disease) Degenerative disc disease Deviated nasal septum GERD (gastroesophageal reflux disease) CONTROLLED Hearing deficit History of colon cancer REMOVED COLON POLYP + (NO OTHER INTERVENTION NEEDED) Hx of gout Hyperlipidemia Hypertension Hypothyroidism Lumbar radiculopathy Osteoarthritis Positive colorectal cancer screening using Cologuard test Post traumatic stress disorder Scoliosis Seasonal allergies Sleep apnea NO DEVICE (COULD NOT TOLERATE) Temporomandibular joint dysfunction syndrome Surgical History History of cardiac cath - NO STENTS History of cataract surgery History of cervical spinal surgery C3-5 ACDF History of colonoscopy W/ POLYPECTOMY History of difficult intubation C3-5 ACDF= 08/23/17= Grade view 2, Glidescope#4, ETT 8.0 (Head/neck neutral for intubation) at [facility] History of esophagogastroduodenoscopy (EGD) History of lumbar fusion L4-L5 History of right-sided carotid endarterectomy History of tonsillectomy History of tooth extraction History of total knee replacement LEFT History of total shoulder replacement RIGHT/LEFT Family History Sister Breast cancer Cancer Hypertension Brother Myocardial infarction COPD (chronic obstructive pulmonary disease) Hypertension Father Hypertension Mother Hypertension Other No family history of adverse response to anesthesia Denies family history of Ovarian cancer Prostate cancer Diabetes Colorectal cancer Social History Smoking Status: Former smoker Tobacco Type: Smokeless Tobacco (Dip or Chew) Age Started Using Tobacco: 14; Age Quit Using Tobacco: 36; packs per day: 2; Second Hand Exposure: No; Hx Alcohol Use: No (quit 2019) Hx Substance Use: No Preferred Language: Romanian Communication Ability: Effective Visual Impairment: No Limitations Hearing Ability: Use of Hearing Aid Extractor And Wringer Operator Required: No Beliefs That Will Affect Care: None marital status: / Current Living Situation: Alone current occupational status: retired 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, 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 Feels Safe at Home: Yes Childhood Exposure to Second-Hand Smoke: Yes caffeine: Yes Dental Care, Regularly: No Physical Activity Frequency: Daily Seatbelt Use: always Sunscreen Use: Yes Assistive Devices: Denture - Upper, Glasses and Hearing Aid - Bilateral Allergies Allergies Allergy/AdvReac Type Severity Reaction Status Date / Time aspirin Allergy Severe hives and Verified 10/27/21 16:16 mouth/throat swelling, hyperventilation ketorolac Allergy Unknown avoids Verified 10/27/21 16:16 secondary to aspirin component [id number]-[id number] Reductase AdvReac Intermediate severe Verified 10/27/21 16:16 Inhibitor muscle [Ktvhydz-Nsq-Nrf Reductase cramps Inhibitor] oxycodone AdvReac Mild MENTAL Verified 10/27/21 16:16 STATUS CHANGES Home Meds Home Medications Medication Instructions Recorded Confirmed albuterol sulfate 90 mcg/actuation 2 puff INHALATION Q6H PRN 08/10/18 10/27/21 aerosol inhaler allopurinol 100 mg tablet 100 mg PO QPM 08/10/18 10/27/21 atenolol 25 mg tablet 25 mg PO QAM 08/10/18 10/27/21 cyanocobalamin (vitamin B-12) 100 200 mcg PO QAM 08/10/18 10/27/21 mcg tablet diltiazem HCl 180 mg 180 mg PO QAM 08/10/18 10/27/21 capsule,extended release 24 hr, controlled folic acid 1 mg tablet 1 mg PO QAM 08/10/18 10/27/21 garlic 500 mg PO QPM 08/10/18 10/27/21 thiamine HCl (vitamin B1) 100 mg 100 mg PO QAM 08/10/18 10/27/21 tablet fexofenadine 180 mg tablet 180 mg PO QAM 12/02/18 10/27/21 lisinopril 10 1 tab PO QAM 05/17/19 10/27/21 mg-hydrochlorothiazide 12.5 mg tablet omeprazole 20 mg capsule,delayed 20 mg PO QAM 05/17/19 10/27/21 release omega 3-exk-ntr-fish oil 1,000 mg 1 cap PO BID 05/24/19 10/27/21 (120 mg-180 mg) capsule (Fish Oil) venlafaxine 75 mg tablet,extended 225 mg PO QAM 04/06/20 10/27/21 release 24 hr melatonin 1 mg tablet 6 mg PO HS PRN 05/20/20 10/27/21 docusate sodium 100 mg capsule 100 mg PO DAILY 06/26/21 10/27/21 (Dulcolax Stool Softener (docusate)) fluticasone 100 mcg-salmeterol 50 1 inh INHALATION BID 12/27/21 12/27/21 mcg/dose blistr powdr for inhalation (Wixela Inhub) Previous Rx's Medication Instructions Recorded prazosin 5 mg capsule 5 mg PO QPM #30 cap 11/15/19 finasteride 5 mg tablet 5 mg PO DAILY #30 tab 07/24/20 levothyroxine 25 mcg tablet 25 mcg PO DAILY #90 tab 08/11/21 Results & Data (ED) Vital Signs Vital Signs - 24 hr 10/27/21 14:53 10/27/21 15:07 10/27/21 15:18 Temperature 36.5 C Temperature Source Oral Pulse Rate 77 Pulse Rate [Apical] 81 Respiratory Rate 23 22 Respiratory Effort / Characteristics Non-Labored Spontaneous Non-Labored Spontaneous Respiratory Depth Normal Normal Blood Pressure 110/68 Blood Pressure [Right Arm] 88/59 L Blood Pressure Mean 82 Blood Pressure Mean [Right Arm] 68 Blood Pressure Position Lying Pulse Oximetry 96 94 Oxygen Delivery Method Room Air Room Air Room Air Sepsis Recent Fever Within 48 Hours No Sepsis New/Unexplained Change in Mental Status No Sepsis Action Taken by Nursing No Action Required 10/27/21 16:00 10/27/21 16:15 10/27/21 16:30 Temperature Temperature Source Pulse Rate Pulse Rate [Apical] 65 61 56 L Respiratory Rate 20 19 20 Respiratory Effort / Characteristics Non-Labored Spontaneous Non-Labored Spontaneous Non-Labored Spontaneous Respiratory Depth Normal Normal Normal Blood Pressure Blood Pressure [Right Arm] 106/64 120/66 128/69 Blood Pressure Mean Blood Pressure Mean [Right Arm] 78 84 88 Blood Pressure Position Pulse Oximetry 96 94 92 Oxygen Delivery Method Room Air Room Air Room Air Sepsis Recent Fever Within 48 Hours Sepsis New/Unexplained Change in Mental Status Sepsis Action Taken by Nursing 10/27/21 16:45 10/27/21 17:00 10/27/21 17:15 Temperature Temperature Source Pulse Rate Pulse Rate [Apical] 55 L 50 L 50 L Respiratory Rate 20 26 H 24 Respiratory Effort / Characteristics Non-Labored Spontaneous Non-Labored Spontaneous Non-Labored Spontaneous Respiratory Depth Normal Normal Normal Blood Pressure Blood Pressure [Right Arm] 125/61 124/63 114/65 Blood Pressure Mean Blood Pressure Mean [Right Arm] 82 83 81 Blood Pressure Position Pulse Oximetry 93 93 92 Oxygen Delivery Method Room Air Room Air Room Air Sepsis Recent Fever Within 48 Hours Sepsis New/Unexplained Change in Mental Status Sepsis Action Taken by Nursing 10/27/21 19:06 Temperature Temperature Source Pulse Rate Pulse Rate [Apical] 49 L Respiratory Rate 18 Respiratory Effort / Characteristics Respiratory Depth Blood Pressure Blood Pressure [Right Arm] Blood Pressure Mean Blood Pressure Mean [Right Arm] Blood Pressure Position Pulse Oximetry 96 Oxygen Delivery Method Sepsis Recent Fever Within 48 Hours Sepsis New/Unexplained Change in Mental Status Sepsis Action Taken by [facility] Medications Current Medication List: was personally reviewed by me Laboratory Data Attestation: I reviewed the patient's lab results. Result diagrams: 10/27/21 15:00 10/27/21 15:00 Lab Results 10/27/21 10/27/21 10/27/21 Range/Units 15:00 15:00 15:23 WBC 6.22 (4.8-10.8) K/uL RBC 4.48 L (4.7-6.1) M/uL Hgb 14.2 (14.0-18.0) g/dL Hct 42.7 (42-52) % MCV 95.3 (80-100) fL MCH 31.7 (25-34) pg MCHC 33.3 (32-36) g/dL RDW Std Deviation 47.7 H (36.4-46.3) fL RDW Coeff of Zelalem 13.8 (11.5-14.5) % Plt Count 227 (130-400) K/uL MPV 10.8 H (7.4-10.4) fL Immature Gran % (Auto) 0.2 % Neut % (Auto) 61.2 % Lymph % (Auto) 24.9 % Glades % (Auto) 6.3 % Eos % (Auto) 7.2 % Baso % (Auto) 0.2 % Neut # (Auto) 3.81 (1.4-6.5) K/uL Lymph # (Auto) 1.55 (1.2-3.4) K/uL Glades # (Auto) 0.39 (0.11-0.59) K/uL Eos # (Auto) 0.45 (0-0.5) K/uL Baso # (Auto) 0.01 (0-0.2) K/uL Immature Gran # (Auto) 0.01 (0.00-0.02) K/uL Sodium 137 (136-145) mmol/L Potassium 4.3 (3.5-5.1) mmol/L Chloride 106 (98-107) mmol/L Carbon Dioxide 25 (21-32) mmol/L Anion Gap 6.0 (3-11) BUN 35 H (7-18) mg/dl Creatinine 2.19 H (0.6-1.4) mg/dl Est Cr Clr Drug Dosing 28.2 ml/min Est GFR ( Amer) 31.6 ml/min Est GFR (Non-Af Amer) 27.2 ml/min BUN/Creatinine Ratio 16.2 (10-20) Glucose 104 H (70-99) mg/dl Calcium 9.7 (8.5-10.1) mg/dl Phosphorus 3.1 (2.5-4.9) mg/dl Magnesium 1.8 (1.8-2.4) mg/dl Total Bilirubin 0.3 (0.2-1) mg/dl AST 10 L (15-37) U/L ALT 15 (12-78) Alkaline Phosphatase 67 (45-117) U/L Troponin I < 0.015 (0-0.045) ng/ml Total Protein 6.5 (6.4-8.2) gm/dl Albumin 2.9 L (3.4-5.0) gm/dl Globulin 3.6 (2.5-4.0) gm/dl Albumin/Globulin Ratio 0.8 L (0.9-2) TSH 2.580 (0.300-4.500) uIu/ml SARS-CoV-2, RNA, NAAT NEGATIVE (NEGATIVE) Administered Medications Discontinued Medications Sodium Chloride (Nss 1000ml) 1,000 mls @ 999 mls/hr IV .Q1H1M STA Stop: 10/27/21 16:17 Last Infusion: 10/27/21 16:44 Dose: 0 mls/hr Documented by: [id number] Admin: 10/27/21 15:35 Dose: 999 mls/hr Documented by: [id number] Imaging Data Radiologist's Impression: Chest X-Ray 10/27/21 15:18 XR chest 1V portable CLINICAL HISTORY: Dysrhythmia COMPARISON STUDY: Chest CT December 03, 2020. Chest radiograph June 30, 2021. FINDINGS: Incidental note is made of bilateral shoulder arthroplasties. There is no pneumothorax or pleural effusion. Pulmonary vascularity is normal. Linear left basilar opacity reflects atelectasis. No consolidation is identified. Cardiac size is normal. Mediastinal contours are unremarkable. IMPRESSION: No acute cardiopulmonary findings. ACT 112: Negative or not required by law. Electronically signed by: Joseluis Jacobsen M.D. 10/27/2021 3:35 PM Discharge Plan Visit Data Chief Complaint: Cardiac Assessment ED Provider: Marin Macias Discharge Problem: Symptomatic bradycardia, Tobacco use, Dizziness, CKD (chronic kidney disease) stage 4, GFR 15-29 ml/min Patient Disposition: Admitted As Inpatient Forms Stand Alone Forms: [facility] Prescriptions Prescriptions: No Action levothyroxine 25 mcg tablet 25 mcg PO DAILY Qty: 90 RF: 3 prazosin 5 mg capsule 5 mg PO QPM Qty: 30 RF: 2 melatonin 1 mg tablet 6 mg PO HS PRN (Reason: Sleep) RF: 0 finasteride 5 mg tablet 5 mg PO DAILY Qty: 30 RF: 11 docusate sodium [Dulcolax Stool Softener (dss)] 100 mg capsule 100 mg PO DAILY RF: 0 lisinopril-hydrochlorothiazide 10-12.5 mg tablet 1 tab PO QAM RF: 0 omeprazole 20 mg capsule,delayed release(DR/EC) 20 mg PO QAM RF: 0 cyanocobalamin (vitamin B-12) 100 mcg Tablet 200 mcg PO QAM RF: 0 thiamine HCl (vitamin B1) 100 mg Tablet 100 mg PO QAM RF: 0 allopurinol 100 mg Tablet 100 mg PO QPM RF: 0 folic acid 1 mg Tablet 1 mg PO QAM RF: 0 albuterol sulfate 90 mcg/actuation Hfa Aerosol Inhaler 2 puff INHALATION Q6H PRN (Reason: Shortness Of Breath) RF: 0 diltiazem HCl 180 mg Capsule,Ext.Rel 24h Degradable 180 mg PO QAM RF: 0 garlic Tablet 500 mg PO QPM RF: 0 atenolol 25 mg Tablet 25 mg PO QAM RF: 0 omega 0-rcq-nqu-fish oil [Fish Oil] 1,000 mg (120 mg-180 mg) Capsule 1 cap PO BID RF: 0 venlafaxine 75 mg Tablet Extended Release 24hr 225 mg PO QAM RF: 0 fexofenadine 180 mg Tablet 180 mg PO QAM RF: 0 fluticasone propion-salmeterol [Wixela Inhub] 100-50 mcg/dose Blister With Device 1 inh INHALATION BID RF: 0 Referrals Referrals: Israel Patel MD [Primary Care Provider] -
[2021-10-27] MEDS ORDERED: SODIUM CHLORIDE 0.9% 1000ML 1,000 ML IV STA (15:17)
[2021-10-27 15:27] LABS: Basophils # (auto) 0.01 K/uL (0-0.2); Basophils % (auto) 0.2 %; Eosinophils # (auto) 0.45 K/uL (0-0.5); Eosinophils % (auto) 7.2 %; Hematocrit (blood only) 42.7 % (42-52); Hemoglobin 14.2 g/dL (14.0-18.0); Immature Granulocytes # (auto) 0.01 K/uL (0.00-0.02); Immature Granulocytes % (auto) 0.2 %; Lymphocytes # (auto) 1.55 K/uL (1.2-3.4); Lymphocytes % (auto) 24.9 %; Mean Corpuscular Hemoglobin 31.7 pg (25-34); Mean Corpuscular Hgb Conc 33.3 g/dL (32-36); Mean Corpuscular Volume 95.3 fL (80-100); Mean Platelet Volume 10.8 fL (7.4-10.4); Monocytes # (auto) 0.39 K/uL (0.11-0.59); Monocytes % (auto) 6.3 %; Neutrophils # (auto) 3.81 K/uL (1.4-6.5); Neutrophils % (auto) 61.2 %; Platelet Count 227 K/uL (130-400); RDW Coefficient of Variation 13.8 % (11.5-14.5); RDW Standard Deviation 47.7 fL (36.4-46.3); Red Blood Count 4.48 M/uL (4.7-6.1); White Blood Count 6.22 K/uL (4.8-10.8)
--- NOTE | 2021-10-27 15:36 | XRay Report ---
XR chest 1V portable CLINICAL HISTORY: Dysrhythmia COMPARISON STUDY: Chest CT December 03, 2020. Chest radiograph June 30, 2021. FINDINGS: Incidental note is made of bilateral shoulder arthroplasties. There is no pneumothorax or p leural effusion. Pulmonary vascularity is normal. Linear left basilar opacity reflects atelectasis. N o consolidation is identified. Cardiac size is normal. Mediastinal contours are unremarkable. IMPRESSION: No acute cardiopulmonary findings. ACT 112: Negative or not required by law. Electronically signed by: Joseluis Jacobsen M.D. 10/27/2021 3:35 PM
[2021-10-27 15:46] LABS: Alanine Aminotransferase 15 (12-78); Albumin Level 2.9 gm/dl (3.4-5.0); Aspartate Aminotransferase 10 U/L (15-37); BUN Creatinine Ratio 16.2 (10-20); Blood Urea Nitrogen 35 mg/dl (7-18); Calcium 9.7 mg/dl (8.5-10.1); Carbon Dioxide 25 mmol/L (21-32); Chloride 106 mmol/L (98-107); Creatinine Clr Calc Pharmacy 28.2 ml/min; Est GFR (African American) 31.6 ml/min; Est GFR (Non-African American) 27.2 ml/min; Glucose 104 mg/dl (70-99); Magnesium 1.8 mg/dl (1.8-2.4); Potassium 4.3 mmol/L (3.5-5.1); Sodium 137 mmol/L (136-145)
[2021-10-27 15:57] LABS: Albumin Globulin Ratio 0.8 (0.9-2); Alkaline Phosphatase 67 U/L (45-117); Bilirubin,Total 0.3 mg/dl (0.2-1); Globulin 3.6 gm/dl (2.5-4.0); Phosphorus 3.1 mg/dl (2.5-4.9); Total Protein 6.5 gm/dl (6.4-8.2); Troponin I < 0.015 ng/ml (0-0.045)
--- NOTE | 2021-10-27 16:49 | Electrocardiogram Report ---
Test Reason : Blood Pressure : / mmHG Vent. Rate : 072 BPM Atrial Rate : 072 BPM P-R Int : 144 ms QRS Dur : 090 ms QT Int : 410 ms P-R-T Axes : 047 060 040 degrees QTc Int : 448 ms Normal sinus rhythm Normal ECG When compared with ECG of 25-MAY-2019 07:05, No significant change was found Confirmed by Israel Vines ([id number]) on 10/27/2021 4:48:58 PM Referred By: Confirmed By:Kody Vines
[2021-10-27] MEDS ORDERED: ALBUTEROL HFA 8 GM INHALER INH PRN (17:38)
[2021-10-27] MEDS ORDERED: MAGNESIUM HYDROXIDE SUSP 30 ML UDC PO PRN (17:38)
[2021-10-27] MEDS ORDERED: ALUMINUM/MAGNESIUM SUSP 30 ML UDC PO PRN (17:38)
[2021-10-27] MEDS ORDERED: ONDANSETRON INJ 2 MG/ML 2 ML VIAL IV PRN (17:38)
[2021-10-27] MEDS ORDERED: POLYETHYLENE (MIRALAX) 17 GM PACK PO PRN (17:38)
--- NOTE | 2021-10-27 17:58 | History & Physical Report ---
Date of Service October 27, 2021 Assessment & Plan (1) Symptomatic bradycardia: Plan: * Admit to PCU/tele * Hold Atenolol and Diltiazem * External pacer pads in place * Update echocardiogram * Serial troponins * Consult cardiology, appreciate recommendations (2) Essential hypertension: Plan: * Continue Lisinopril/HCTZ * Hold Diltiazem and Atenolol as noted above * Will monitor BP with these changes (3) Hypothyroidism: Plan: * TSH WNL * Continue Synthroid (4) BPH w urinary obs/LUTS: Plan: * Continue Proscar and Prazosin (5) COPD (chronic obstructive pulmonary disease): Plan: * w/o acute exacerbation, not hypoxic, no wheezing on exam * Continue Advair and PRN Albuterol (6) Chronic kidney disease, stage 3: Plan: * Baseline creatinine ~2.0 * Avoid nephrotoxic meds Plan: VTE ppx--Lovenox Diet--heart healthy Follow up labs in AM Await input from cardiology Discussed above plan with Dr. Douglas History of Present Illness Chief Complaint: weakness, lightheadedness/dizziness Primary Care Provider: Israel Patel MD Mr. Arteaga is a pleasant 83 yo WM with a pmhx of HTN, COPD, BPH, prior h/o ETOH abuse (quit in 2014), CKD, and hypothyroidism who presented to the ER today due to symptomatic bradycardia. Pt reports that he began having rather rapidly progressing generalized weakness starting and shortness of breath around 1130 this morning. He reported developing lightheadedness, dizziness and midsternal chest discomfort and contacted EMS. Upon EMS arrival, pt was found to be bradycardic in the 30s, he was placed on 15L NRB and was medicated with Atropine 1mg IV. Also received approx 800 cc of fluid pre hospital. Upon arrival to the ED, pt is has been in NSR. Currently, he feels much better, is no longer having any symptoms and is requesting something to drink. He denies a prior h/o cardiac disease. In the computer, it appears he did have a stress echo and TTE performed in 2019 which was ordered due to chest pain both of which were normal. No cardiac follow up/work up since that time. In ED, pt has remained stable in NSR, now sinus zohra. TSH WNL, cbc and cmp w/o abnormalities. Electrolytes balanced. COVID negative. Troponin negative. External pacer pads are in place. Pt will be hospitalized to monitored bed for further evaluation and care. Allergies Allergy/AdvReac Type Severity Reaction Status Date / Time aspirin Allergy Severe hives and Verified 10/27/21 16:16 mouth/throat swelling, hyperventilation ketorolac Allergy Unknown avoids Verified 10/27/21 16:16 secondary to aspirin component Tdhvliz-YBE-DeL Reductase AdvReac Intermediate severe Verified 10/27/21 16:16 Inhibitor muscle [Waslzmy-Car-Chq Reductase cramps Inhibitor] oxycodone AdvReac Mild MENTAL Verified 10/27/21 16:16 STATUS CHANGES Home Medications Medication Instructions Recorded Confirmed Type albuterol sulfate 90 mcg/actuation 2 puff INHALATION Q6H PRN 08/10/18 10/27/21 History aerosol inhaler allopurinol 100 mg tablet 100 mg PO QPM 08/10/18 10/27/21 History atenolol 25 mg tablet 25 mg PO QAM 08/10/18 10/27/21 History cyanocobalamin (vitamin B-12) 100 200 mcg PO QAM 08/10/18 10/27/21 History mcg tablet diltiazem HCl 180 mg 180 mg PO QAM 08/10/18 10/27/21 History capsule,extended release 24 hr, controlled folic acid 1 mg tablet 1 mg PO QAM 08/10/18 10/27/21 History garlic 500 mg PO QPM 08/10/18 10/27/21 History thiamine HCl (vitamin B1) 100 mg 100 mg PO QAM 08/10/18 10/27/21 History tablet fexofenadine 180 mg tablet 180 mg PO QAM 12/02/18 10/27/21 History lisinopril 10 1 tab PO QAM 05/17/19 10/27/21 History mg-hydrochlorothiazide 12.5 mg tablet omeprazole 20 mg capsule,delayed 20 mg PO QAM 05/17/19 10/27/21 History release omega 2-grc-scn-fish oil 1,000 mg 1 cap PO BID 05/24/19 10/27/21 History (120 mg-180 mg) capsule (Fish Oil) prazosin 5 mg capsule 5 mg PO QPM #30 cap 11/15/19 10/27/21 Rx venlafaxine 75 mg tablet,extended 225 mg PO QAM 04/06/20 10/27/21 History release 24 hr melatonin 1 mg tablet 6 mg PO HS PRN 05/20/20 10/27/21 History finasteride 5 mg tablet 5 mg PO DAILY #30 tab 07/24/20 10/27/21 Rx docusate sodium 100 mg capsule 100 mg PO DAILY 06/26/21 10/27/21 History (Dulcolax Stool Softener (docusate)) levothyroxine 25 mcg tablet 25 mcg PO DAILY #90 tab 08/11/21 10/27/21 Rx fluticasone 100 mcg-salmeterol 50 1 inh INHALATION BID 10/27/21 10/27/21 History mcg/dose blistr powdr for inhalation ([facility]ix[facility] Inhub) Past Med/Surg History Medical History Alcohol dependence QUIT 2018 Anxiety and depression Arthritis Asthma using PRN inh multiple x daily at present. recent asthma attack 1 mo ago; completed steroid taper. Benign essential tremor HANDS BPH (benign prostatic hyperplasia) Carotid artery stenosis S/P RIGHT CEA (08/2018) Cervical facet joint syndrome Chronic back pain Chronic kidney disease, stage 3 COPD (chronic obstructive pulmonary disease) Degenerative disc disease Deviated nasal septum GERD (gastroesophageal reflux disease) CONTROLLED Hearing deficit History of colon cancer REMOVED COLON POLYP + (NO OTHER INTERVENTION NEEDED) Hx of gout Hyperlipidemia Hypertension Hypothyroidism Lumbar radiculopathy Osteoarthritis Positive colorectal cancer screening using Cologuard test Post traumatic stress disorder Scoliosis Seasonal allergies Sleep apnea NO DEVICE (COULD NOT TOLERATE) Temporomandibular joint dysfunction syndrome Surgical History History of cardiac cath - NO STENTS History of cataract surgery History of cervical spinal surgery C3-5 ACDF History of colonoscopy W/ POLYPECTOMY History of difficult intubation C3-5 ACDF= 08/23/17= Grade view 2, Glidescope#4, ETT 8.0 (Head/neck neutral for intubation) at [facility] History of esophagogastroduodenoscopy (EGD) History of lumbar fusion L4-L5 History of right-sided carotid endarterectomy History of tonsillectomy History of tooth extraction History of total knee replacement LEFT History of total shoulder replacement RIGHT/LEFT Family History Sister Breast cancer Cancer Hypertension Brother Myocardial infarction COPD (chronic obstructive pulmonary disease) Hypertension Father Hypertension Mother Hypertension Other No family history of adverse response to anesthesia Denies family history of Ovarian cancer Prostate cancer Diabetes Colorectal cancer Social History Smoking Status: Former smoker Tobacco Type: Smokeless Tobacco (Dip or Chew) Age Started Using Tobacco: 14; Age Quit Using Tobacco: 36; packs per day: 2; Second Hand Exposure: No; Hx Alcohol Use: No (quit 2019) Hx Substance Use: No Preferred Language: Kazakh Communication Ability: Effective Visual Impairment: No Limitations Hearing Ability: Use of Hearing Aid Scrapper Required: No Beliefs That Will Affect Care: None marital status: / Current Living Situation: Alone current occupational status: retired 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 Denies weight loss/gain, fever and chills, fatigue, malaise. HEENT: Denies changes in vision and hearing. RESPIRATORY: +SOB, now resolved. Denies cough, wheezing. CV: +CP, no resolved. Denies palpitations, lower extremity edema, orthopnea, PND. GI: Denies abdominal pain, nausea, vomiting and diarrhea. : Denies dysuria and urinary frequency, urgency, hesitancy. MUSCULOSKELETAL: Denies myalgia and joint pain. SKIN: Denies rash and pruritus. NEUROLOGICAL: +dizzy/lightheaded. Denies headache, focal weakness, numbness, tin gling. PSYCHIATRIC: Denies recent changes in mood. Denies anxiety and depression. Physical Exam Physical Exam: GENERAL: 83 yo Well-developed, well-nourished elderly WM. NAD. EYES: EOMI. PERRLA. Anicteric. HENT: Moist mucous membranes. No scleral icterus. No cervical lymphadenopathy. LUNGS: Clear to auscultation bilaterally. No accessory muscle use. No W/R/R. CARDIOVASCULAR: Sinus bradycardia. No M/G/R. No JVD. ABDOMEN: Soft, non-tender and non-distended. No palpable masses. Bowel sounds normoactive x 4 quad. EXTREMITIES: No edema. Non-tender. Peripheral pulses +2/4. NEUROLOGIC: A&O x3. No focal neurological deficits. CN II-XII grossly intact. PSYCHIATRIC: Cooperative. Appropriate mood and affect. SKIN: Warm, dry, intact. No rashes or lesions. Results & Data Results & Data ([facility]) Vital Signs (Past 12 Hours) Vital Signs Temp Pulse Pulse Resp BP BP Pulse Ox 10/27/21 17:15 50 L 24 114/65 92 10/27/21 17:00 50 L 26 H 124/63 93 10/27/21 16:45 55 L 20 125/61 93 10/27/21 16:30 56 L 20 128/69 92 10/27/21 16:15 61 19 120/66 94 10/27/21 16:00 65 20 106/64 96 10/27/21 15:18 81 22 88/59 L 94 10/27/21 15:07 36.5 C 77 23 110/68 96 Laboratory Results 10/27/21 15:00 10/27/21 15:00 Diagnostic Findings Chest X-Ray 10/27/21 15:18 XR chest 1V portable CLINICAL HISTORY: Dysrhythmia COMPARISON STUDY: Chest CT December 03, 2020. Chest radiograph June 30, 2021. FINDINGS: Incidental note is made of bilateral shoulder arthroplasties. There is no pneumothorax or pleural effusion. Pulmonary vascularity is normal. Linear left basilar opacity reflects atelectasis. No consolidation is identified. Cardiac size is normal. Mediastinal contours are unremarkable. IMPRESSION: No acute cardiopulmonary findings. ACT 112: Negative or not required by law. Electronically signed by: Joseluis Jacobsen M.D. 10/27/2021 3:35 PM ECG Additional Comments: NSR Code Status & VTE Plan Code Status DNR/DNI VTE Prophylaxis Plan VTE Prophylaxis will be ordered: Yes Supervising Physician Co-Signing Physician Notes Patient was seen and examined at bedside. During face to face encounter, obtained a history and physical examination. Discussed with REA Nielsen plan of care. Patient will be admitted for bradycardia. Will hold chronotropic medications. Likely may require decreased dosing in the future to due decreased drug clearance from CKD. Atenolol is mainly eliminated via kidneys. I agree with above plan. PG Care Time/CCT Total # of Minutes Spent Total Time Spent with Patient: Total time spent is greater than 50% in coordination of care (as documented) at patient's floor/unit and/or counseling patient: Coding Level of Care Code 55062 Initial Inpt Care Lvl 3 Diagnoses Symptomatic bradycardia R00.1 Hypothyroidism E03.9 Essential hypertension I10 BPH w urinary obs/LUTS N40.1; N13.8 COPD (chronic obstructive pulmonary disease) J44.9 Chronic kidney disease, stage 3 N18.3
[2021-10-27] MEDS: PRAZOSIN HCL 1 MG CAP PO SCH (20:47)
[2021-10-27] MEDS: allopurinoL 100 MG TAB PO SCH (20:47)
[2021-10-27] MEDS ORDERED: FLUTICASONE/SALMETEROL 100/50 (ADVAIR) 14 PUFF/1 INHALER INH SCH (21:00)
[2021-10-27] MEDS ORDERED: NON-FORMULARY MEDICATION (Omega 3-Dha-Epa-Fish Oil [Fish Oil] 1,000 mg (120 mg-180 mg) Cap PO SCH (21:00)
[2021-10-27] MEDS ORDERED: MELATONIN 3 MG TAB PO PRN (21:21)
[2021-10-27] MEDS: OMEGA-3 (PURIFIED FISH OIL) 1 GM CAP PO SCH (21:42)
[2021-10-27] MEDS: ENOXAPARIN INJ 30 MG/0.3 ML SYR SQ SCH (23:20)
[2021-10-28] MEDS: ACETAMINOPHEN 325 MG TAB PO PRN (00:38)
[2021-10-28 06:22] LABS: Basophils # (auto) 0.01 K/uL (0-0.2); Basophils % (auto) 0.2 %; Eosinophils # (auto) 0.41 K/uL (0-0.5); Eosinophils % (auto) 7.9 %; Hematocrit (blood only) 36.8 % (42-52); Hemoglobin 12.2 g/dL (14.0-18.0); Immature Granulocytes # (auto) 0.01 K/uL (0.00-0.02); Immature Granulocytes % (auto) 0.2 %; Lymphocytes # (auto) 1.34 K/uL (1.2-3.4); Mean Corpuscular Hemoglobin 31.4 pg (25-34); Mean Corpuscular Hgb Conc 33.2 g/dL (32-36); Mean Corpuscular Volume 94.6 fL (80-100); Mean Platelet Volume 10.5 fL (7.4-10.4); Monocytes # (auto) 0.49 K/uL (0.11-0.59); Monocytes % (auto) 9.5 %; Neutrophils % (auto) 56.2 %; Platelet Count 183 K/uL (130-400); RDW Coefficient of Variation 13.9 % (11.5-14.5); Red Blood Count 3.89 M/uL (4.7-6.1); White Blood Count 5.16 K/uL (4.8-10.8)
[2021-10-28 07:07] LABS: Albumin Level 2.5 gm/dl (3.4-5.0); BUN Creatinine Ratio 18.9 (10-20); Calcium 9.1 mg/dl (8.5-10.1); Creatinine Clr Calc Pharmacy 29.7 ml/min; Est GFR (African American) 33.6 ml/min; Magnesium 1.8 mg/dl (1.8-2.4); Potassium 4.3 mmol/L (3.5-5.1)
[2021-10-28 07:09] LABS: Albumin Globulin Ratio 0.8 (0.9-2); Bilirubin,Total 0.4 mg/dl (0.2-1); Globulin 3.1 gm/dl (2.5-4.0); Total Protein 5.6 gm/dl (6.4-8.2)
[2021-10-28] MEDS: FLUTICASONE/VILANTEROL 100/25MCG 14 PUFFS/INHALER INH SCH (09:21)
[2021-10-28] MEDS: LISINOPRIL/HCTZ 10/12.5MG TAB PO SCH (09:22)
[2021-10-28] MEDS: THIAMINE HCL 100 MG TAB PO SCH (09:22)
[2021-10-28] MEDS: PANTOprazole 40 MG TAB PO SCH (09:22)
[2021-10-28] MEDS: VENLAFAXINE HCL XR 75 MG CAPXR PO SCH (09:23)
[2021-10-28] MEDS: CYANOCOBALAMIN (VITAMIN B-12) 100 MCG TABLET PO SCH (09:23)
[2021-10-28] MEDS: FEXOFENADINE HCL 180 MG TAB PO SCH (09:23)
[2021-10-28] MEDS: FOLIC ACID 1 MG TAB PO SCH (09:23)
[2021-10-28] MEDS: FINASTERIDE 5 MG TAB PO SCH (09:24)
[2021-10-28] MEDS: LEVOTHYROXINE SODIUM 25 MCG TABLET PO SCH (09:24)
[2021-10-28] MEDS: DOCUSATE SODIUM 100 MG CAP PO SCH (09:24)
[2021-10-28] MEDS: OMEGA-3 (PURIFIED FISH OIL) 1 GM CAP PO SCH ×2 (09:27→21:06)
--- NOTE | 2021-10-28 11:11 | Hospitalist Progress Note ---
Date of Service October 28, 2021 Assessment & Plan (1) Symptomatic bradycardia: Plan: * Admit to PCU/tele * Hold Atenolol and Diltiazem * External pacer pads in place * Update echocardiogram * Serial troponins negative x2 * Consult cardiology, appreciate recommendations * ?SA node dysfunction (2) Essential hypertension: Plan: * Continue Lisinopril/HCTZ * Hold Diltiazem and Atenolol as noted above * Will monitor BP with these changes (3) Hypothyroidism: Plan: * TSH WNL * Continue Synthroid (4) BPH w urinary obs/LUTS: Plan: * Continue Proscar and Prazosin (5) COPD (chronic obstructive pulmonary disease): Plan: * w/o acute exacerbation, not hypoxic, no wheezing on exam * Continue Advair and PRN Albuterol (6) Chronic kidney disease, stage 3: Plan: * Baseline creatinine ~2.0 * Avoid nephrotoxic meds Plan: VTE ppx--Lovenox Diet--heart healthy Follow up labs in AM Await input from cardiology Admission and Anticipated Discharge Date Admission Date: October 27, 2021 Subjective Mr. Arteaga seen on rounds this morning. Pt hospitalized for symptomatic bradycardia. He reports this morning that he feels "much better" than yesterday. He denies chest pain, dyspnea, lightheadedness/dizziness, n/v/d, f/c, headache, or gu symptoms. Per RN, pt has remained in sinus zohra, lowest recorded HR overnight was 43. His rate-reducing medications are on hold. Cardiology has been consulted but has not yet seen him. Review of Systems Review of Systems: CONSTITUTIONAL: Denies weight loss/gain, fever and chills, fatigue, malaise. HEENT: Denies changes in vision and hearing. RESPIRATORY: Denies SOB, cough, wheezing. CV: +CP, no resolved. Denies palpitations, lower extremity edema, orthopnea, PND. GI: Denies abdominal pain, nausea, vomiting and diarrhea. : Denies dysuria and urinary frequency, urgency, hesitancy. MUSCULOSKELETAL: Denies myalgia and joint pain. SKIN: Denies rash and pruritus. NEUROLOGICAL: Denies headache, focal weakness, numbness, tingling. PSYCHIATRIC: Denies recent changes in mood. Denies anxiety and depression. Physical Exam Physical Exam: GENERAL: 83 yo Well-developed, well-nourished elderly WM. NAD. LUNGS: Clear to auscultation bilaterally. No accessory muscle use. No W/R/R. CARDIOVASCULAR: Sinus bradycardia. No M/G/R. No JVD. ABDOMEN: Soft, non-tender and non-distended. No palpable masses. Bowel sounds normoactive x 4 quad. EXTREMITIES: No edema. Non-tender. Peripheral pulses +2/4. NEUROLOGIC: A&O x3. PSYCHIATRIC: Cooperative. Appropriate mood and affect. SKIN: Warm, dry, intact. No rashes or lesions. Results & Data Results & Data ([facility]) Vital Signs (Past 12 Hours) Vital Signs Pulse Resp BP Pulse Ox 10/28/21 05:06 44 L 14 133/64 96 10/28/21 03:04 44 L 16 114/67 96 10/28/21 02:28 85 L 10/28/21 01:05 46 L 14 119/57 L 91 10/28/21 00:00 43 L 14 90/51 L 90 Laboratory Results 10/28/21 05:52 10/28/21 05:52 PG Care Time/CCT Total # of Minutes Spent Total Time Spent with Patient: Total time spent is greater than 50% in coordination of care (as documented) at patient's floor/unit and/or counseling patient: Coding Level of Care Code 82390 Subseq Hosp Care Lvl 2 Diagnoses Symptomatic bradycardia R00.1 Essential hypertension I10 Hypothyroidism E03.9 BPH w urinary obs/LUTS N40.1; N13.8 COPD (chronic obstructive pulmonary disease) J44.9 Chronic kidney disease, stage 3 N18.3
--- NOTE | 2021-10-28 13:40 | XCELERA ---
[id number] \\[id number]
--- NOTE | 2021-10-28 14:27 | Cardiology Consultation ---
Date of Consultation October 28, 2021 Assessment & Plan (1) Symptomatic bradycardia: This is likely etiology for his symptoms of dizziness and presyncope. The true etiology of his bradycardia is unclear. This was a sinus bradycardia. He did not have other symptoms consistent with high vagal tone although I suppose this was possible. No particular intervention was performed other than with holding some of his medications. His heart rate appears have returned to normal and his symptoms have resolved. Perhaps a change in his antihypertensives would limit the chance of recurrence. Think switching his diltiazem to amlodipine would be a good intervention. He may benefit from being on a beta-sujata given his aortic root and ascending aortic dilation. Atenolol is renally cleared and with his renal dysfunction metoprolol may be a better choice. (2) Essential hypertension: Generally good at home. Perhaps a change in his antihypertensives as mentioned above the limit his chest recurrent symptomatic bradycardia. (3) Mitral regurgitation: Mild. This can be followed over time. (4) Aortic root dilation: Borderline on echocardiogram today. Prior CT obtained in December of this year demonstrated an at ascending aortic diameter of 4 cm. Will continue beta- blockade. Continue good control of hypertension. Monitor periodically History of Present Illness Reason for Consultation: Dizziness, bradycardia Requesting Physician: Morales Attending Physician: Carloz Alejandro, History of Present Illness The patient is an 81-year-old gentleman with a history of hypertension who experienced an episode of severe dizziness and presyncope yesterday. Apparently the patient woke feeling well. However earlier in the morning he noticed the development of some dizziness and lightheadedness when getting up from seated position. This became fairly severe when he attempted to walk to the kitchen to get his phone. He felt presyncopal at that time. EMS was contacted and he was discovered to be bradycardic. He is transported to the emergency room. Atropine appears to have been administered in root. Over the course of this morning the patient's symptoms affectively resolved and his heart rate returned to normal. Patient stated that he also had some element of chest pressure. He does have chest pressure on occasion that generally is located in left axillary area. This was more central in location. It lasted for at least an hour and he still has some symptoms of that nature at this time. In generally claims to be an active individual. He does not exercise regularly but can walk up to a mi with little symptoms. He is generally limited by breathing difficulty. He does not have exertional chest pain. He had 1 episode of presyncope in the past that may have been associated with inhalation of chemicals. He has never suffered true syncope. Allergies Allergy/AdvReac Type Severity Reaction Status Date / Time aspirin Allergy Severe hives and Verified 10/27/21 16:16 mouth/throat swelling, hyperventilation ketorolac Allergy Unknown avoids Verified 10/27/21 16:16 secondary to aspirin component Gltaqxx-UOW-ZpM Reductase AdvReac Intermediate severe Verified 10/27/21 16:16 Inhibitor muscle [Jxmuygl-Pqy-Sma Reductase cramps Inhibitor] oxycodone AdvReac Mild MENTAL Verified 10/27/21 16:16 STATUS CHANGES Home Medications Medication Instructions Recorded Confirmed Type albuterol sulfate 90 mcg/actuation 2 puff INHALATION Q6H PRN 08/10/18 10/27/21 History aerosol inhaler allopurinol 100 mg tablet 100 mg PO QPM 08/10/18 10/27/21 History atenolol 25 mg tablet 25 mg PO QAM 08/10/18 10/27/21 History cyanocobalamin (vitamin B-12) 100 200 mcg PO QAM 08/10/18 10/27/21 History mcg tablet diltiazem HCl 180 mg 180 mg PO QAM 08/10/18 10/27/21 History capsule,extended release 24 hr, controlled folic acid 1 mg tablet 1 mg PO QAM 08/10/18 10/27/21 History garlic 500 mg PO QPM 08/10/18 10/27/21 History thiamine HCl (vitamin B1) 100 mg 100 mg PO QAM 08/10/18 10/27/21 History tablet fexofenadine 180 mg tablet 180 mg PO QAM 12/02/18 10/27/21 History lisinopril 10 1 tab PO QAM 05/17/19 10/27/21 History mg-hydrochlorothiazide 12.5 mg tablet omeprazole 20 mg capsule,delayed 20 mg PO QAM 05/17/19 10/27/21 History release omega 7-qwm-esx-fish oil 1,000 mg 1 cap PO BID 05/24/19 10/27/21 History (120 mg-180 mg) capsule (Fish Oil) prazosin 5 mg capsule 5 mg PO QPM #30 cap 11/15/19 10/27/21 Rx venlafaxine 75 mg tablet,extended 225 mg PO QAM 04/06/20 10/27/21 History release 24 hr melatonin 1 mg tablet 6 mg PO HS PRN 05/20/20 10/27/21 History finasteride 5 mg tablet 5 mg PO DAILY #30 tab 07/24/20 10/27/21 Rx docusate sodium 100 mg capsule 100 mg PO DAILY 06/26/21 10/27/21 History (Dulcolax Stool Softener (docusate)) levothyroxine 25 mcg tablet 25 mcg PO DAILY #90 tab 08/11/21 10/27/21 Rx fluticasone 100 mcg-salmeterol 50 1 inh INHALATION BID 10/27/21 10/27/21 History mcg/dose blistr powdr for inhalation (Wixela Inhub) Patient History Medical History Alcohol dependence QUIT 2018 Anxiety and depression Arthritis Asthma using PRN inh multiple x daily at present. recent asthma attack 1 mo ago; completed steroid taper. Benign essential tremor HANDS BPH (benign prostatic hyperplasia) Carotid artery stenosis S/P RIGHT CEA (08/2018) Cervical facet joint syndrome Chronic back pain Chronic kidney disease, stage 3 COPD (chronic obstructive pulmonary disease) Degenerative disc disease Deviated nasal septum GERD (gastroesophageal reflux disease) CONTROLLED Hearing deficit History of colon cancer REMOVED COLON POLYP + (NO OTHER INTERVENTION NEEDED) Hx of gout Hyperlipidemia Hypertension Hypothyroidism Lumbar radiculopathy Osteoarthritis Positive colorectal cancer screening using Cologuard test Post traumatic stress disorder Scoliosis Seasonal allergies Sleep apnea NO DEVICE (COULD NOT TOLERATE) Temporomandibular joint dysfunction syndrome Surgical History History of cardiac cath - NO STENTS History of cataract surgery History of cervical spinal surgery C3-5 ACDF History of colonoscopy W/ POLYPECTOMY History of difficult intubation C3-5 ACDF= 08/23/17= Grade view 2, Glidescope#4, ETT 8.0 (Head/neck neutral for intubation) at [facility] History of esophagogastroduodenoscopy (EGD) History of lumbar fusion L4-L5 History of right-sided carotid endarterectomy History of tonsillectomy History of tooth extraction History of total knee replacement LEFT History of total shoulder replacement RIGHT/LEFT Family History Sister Breast cancer Cancer Hypertension Brother Myocardial infarction COPD (chronic obstructive pulmonary disease) Hypertension Father Hypertension Mother Hypertension Other No family history of adverse response to anesthesia Denies family history of Ovarian cancer Prostate cancer Diabetes Colorectal cancer Social History Smoking Status: Former smoker Tobacco Type: Smokeless Tobacco (Dip or Chew) Age Started Using Tobacco: 14; Age Quit Using Tobacco: 36; packs per day: 2; Second Hand Exposure: No; Hx Alcohol Use: No (quit 2019) Hx Substance Use: No Preferred Language: Romanian Communication Ability: Effective Visual Impairment: No Limitations Hearing Ability: Use of Hearing Aid Medical Review Coordinator Required: No Beliefs That Will Affect Care: None marital status: / Current Living Situation: Alone current occupational status: retired 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 No dietary indiscretion. No medical noncompliance. Physical Exam Physical Exam: The patient is alert and oriented. Mood and affect appeared normal. He answered all questions appropriately. HEENT: Pupils are equal and reactive to light and accommodation. Extraocular movements are intact. The sclerae are anicteric. Neuro: Cranial nerves intact Neck: Patient's neck is supple. He has palpable carotid pulses bilaterally without bruits on auscultation. There is no evidence of jugular venous distention. The thyroid is not enlarged. Lungs: Distant breath sounds. Clear to auscultation bilaterally. He has good air movement without use of accessory muscles. No rales wheezes or rhonchi. Cardiac: Heart demonstrates a regular rate and rhythm. Normal S1 and S2. No murmurs on examination. Pulses: The patient has palpable radial pulses bilaterally that are equal in i ntensity Extremities: There was no evidence of hypoperfusion. There is no cyanosis or clubbing. There is no edema. Skin: I did not appreciate any rashes on examination today. Results & Data ([facility]) Vital Signs (Past 12 Hours) Vital Signs Temp Pulse Resp BP Pulse Ox 10/28/21 12:00 36.9 C 62 16 138/82 91 10/28/21 05:06 44 L 14 133/64 96 10/28/21 03:04 44 L 16 114/67 96 10/28/21 02:28 85 L Laboratory Results Abnormal Lab Results 10/27/21 10/27/21 10/27/21 15:00 15:00 15:23 WBC 6.22 RBC 4.48 L Hgb 14.2 Hct 42.7 MCV 95.3 MCH 31.7 MCHC 33.3 RDW Std Deviation 47.7 H RDW Coeff of Zelalem 13.8 Plt Count 227 MPV 10.8 H Immature Gran % (Auto) 0.2 Neut % (Auto) 61.2 Lymph % (Auto) 24.9 [place] % (Auto) 6.3 Eos % (Auto) 7.2 Baso % (Auto) 0.2 Neut # (Auto) 3.81 Lymph # (Auto) 1.55 [place] # (Auto) 0.39 Eos # (Auto) 0.45 Baso # (Auto) 0.01 Immature Gran # (Auto) 0.01 Sodium 137 Potassium 4.3 Chloride 106 Carbon Dioxide 25 Anion Gap 6.0 BUN 35 H Creatinine 2.19 H Est Cr Clr Drug Dosing 28.2 Est GFR ( Amer) 31.6 Est GFR (Non-Af Amer) 27.2 BUN/Creatinine Ratio 16.2 Glucose 104 H Calcium 9.7 Phosphorus 3.1 Magnesium 1.8 Total Bilirubin 0.3 AST 10 L ALT 15 Alkaline Phosphatase 67 Troponin I < 0.015 Total Protein 6.5 Albumin 2.9 L Globulin 3.6 Albumin/Globulin Ratio 0.8 L TSH 2.580 SARS-CoV-2, RNA, NAAT NEGATIVE 10/27/21 10/28/21 10/28/21 20:35 05:52 05:52 WBC 5.16 RBC 3.89 L Hgb 12.2 L Hct 36.8 L MCV 94.6 MCH 31.4 MCHC 33.2 RDW Std Deviation 48.0 H RDW Coeff of [place] 13.9 Plt Count 183 MPV 10.5 H Immature Gran % (Auto) 0.2 Neut % (Auto) 56.2 Lymph % (Auto) 26.0 [place] % (Auto) 9.5 Eos % (Auto) 7.9 Baso % (Auto) 0.2 Neut # (Auto) 2.90 Lymph # (Auto) 1.34 [place] # (Auto) 0.49 Eos # (Auto) 0.41 Baso # (Auto) 0.01 Immature Gran # (Auto) 0.01 Sodium 138 Potassium 4.3 Chloride 108 H Carbon Dioxide 24 Anion Gap 6.0 BUN 39 H Creatinine 2.08 H Est Cr Clr Drug Dosing 29.7 Est GFR ( Amer) 33.6 Est GFR (Non-Af Amer) 29.0 BUN/Creatinine Ratio 18.9 Glucose 94 Calcium 9.1 Phosphorus Magnesium 1.8 Total Bilirubin 0.4 AST 8 L ALT 13 Alkaline Phosphatase 57 Troponin I < 0.015 Total Protein 5.6 L Albumin 2.5 L Globulin 3.1 Albumin/Globulin Ratio 0.8 L TSH SARS-CoV-2, RNA, NAAT Diagnostic Findings Chest x-ray obtained the time admission not reveal any acute cardiopulmonary findings. Echocardiogram performed today revealed preserved LV systolic function. Mild mitral regurgitation. Borderline aortic root dilation. PG Care Time/CCT Total # of Minutes Spent Total Time Spent with Patient: Total time spent is greater than 50% in coordination of care (as documented) at patient's floor/unit and/or counseling patient: Coding Level of Care Code INT OBSERVATION CARE 70M LVL 3 Diagnoses Symptomatic bradycardia R00.1 Essential hypertension I10 Mitral regurgitation I34.0 Aortic root dilation I77.810
[2021-10-28] MEDS: METOPROLOL SUCC 25MG EXT REL TAB PO SCH (17:21)
[2021-10-28] MEDS: amLODIPine BESYLATE 5 MG TAB PO SCH (17:21)
[2021-10-28] MEDS: allopurinoL 100 MG TAB PO SCH (21:05)
[2021-10-28] MEDS: ENOXAPARIN INJ 30 MG/0.3 ML SYR SQ SCH (21:07)
[2021-10-28] MEDS: PRAZOSIN HCL 1 MG CAP PO SCH (21:09)
--- NOTE | 2021-10-29 08:12 | Discharge Summary ---
Date of Service October 29, 2021 Admission HPI Per Admitting Provider Mr. Arteaga is a pleasant 83 yo WM with a pmhx of HTN, COPD, BPH, prior h/o ETOH abuse (quit in 2014), CKD, and hypothyroidism who presented to the ER today due to symptomatic bradycardia. Pt reports that he began having rather rapidly progressing generalized weakness starting and shortness of breath around 1130 this morning. He reported developing lightheadedness, dizziness and midsternal chest discomfort and contacted EMS. Upon EMS arrival, pt was found to be bradycardic in the 30s, he was placed on 15L NRB and was medicated with Atropine 1mg IV. Also received approx 800 cc of fluid pre hospital. Upon arrival to the ED, pt is has been in NSR. Currently, he feels much better, is no longer having any symptoms and is requesting something to drink. He denies a prior h/o cardiac disease. In the computer, it appears he did have a stress echo and TTE performed in 2019 which was ordered due to chest pain both of which were normal. No cardiac follow up/work up since that time. In ED, pt has remained stable in NSR, now sinus zohra. TSH WNL, cbc and cmp w/o abnormalities. Electrolytes balanced. COVID negative. Troponin negative. External pacer pads are in place. Pt will be hospitalized to monitored bed for further evaluation and care. Principal Diagnosis Symptomatic bradycardia Discharge Exam Vital Signs Temp Pulse Pulse Pulse Resp BP Pulse Ox 10/29/21 10:59 36.8 C 71 68 20 134/80 93 10/29/21 07:49 36.8 C 68 20 134/80 93 10/29/21 03:39 36.8 C 67 19 125/68 95 10/29/21 00:35 82 10/28/21 23:25 36.8 C 83 19 119/61 93 10/28/21 21:43 84 92 10/28/21 19:19 37.0 C 75 20 153/97 H 95 10/28/21 17:43 10/28/21 17:39 84 10/28/21 17:00 36.6 C 71 18 191/91 H 95 10/28/21 16:52 36.6 C 71 18 191/91 H 95 10/28/21 12:00 36.9 C 62 16 138/82 91 GENERAL: 83 yo Well-developed, well-nourished elderly WM. NAD. LUNGS: Clear to auscultation bilaterally. No accessory muscle use. No W/R/R. CARDIOVASCULAR: RRR. No M/G/R. No JVD. ABDOMEN: Soft, non-tender and non-distended. No palpable masses. Bowel sounds normoactive x 4 quad. EXTREMITIES: No edema. Non-tender. Peripheral pulses +2/4. NEUROLOGIC: A&O x3. PSYCHIATRIC: Cooperative. Appropriate mood and affect. SKIN: Warm, dry, intact. No rashes or lesions. Discharge Data Allergies Allergy/AdvReac Type Severity Reaction Status Date / Time aspirin Allergy Severe hives and Verified 10/27/21 16:16 mouth/throat swelling, hyperventilation ketorolac Allergy Unknown avoids Verified 10/27/21 16:16 secondary to aspirin component Ahiylmj-ILR-WcB Reductase AdvReac Intermediate severe Verified 10/27/21 16:16 Inhibitor muscle [Rpodofg-Lzx-Zbg Reductase cramps Inhibitor] oxycodone AdvReac Mild MENTAL Verified 10/27/21 16:16 STATUS CHANGES Consultations cardiology consulted due to symptomatic bradycardia -- please see note from Dr. Vines Procedures Performed none Ordered Studies 10/28/21 05:52 10/28/21 05:52 Chest X-Ray 10/27/21 15:18 XR chest 1V portable CLINICAL HISTORY: Dysrhythmia COMPARISON STUDY: Chest CT December 03, 2020. Chest radiograph June 30, 2021. FINDINGS: Incidental note is made of bilateral shoulder arthroplasties. There is no pneumothorax or pleural effusion. Pulmonary vascularity is normal. Linear left basilar opacity reflects atelectasis. No consolidation is identified. Cardi ac size is normal. Mediastinal contours are unremarkable. IMPRESSION: No acute cardiopulmonary findings. ACT 112: Negative or not required by law. Electronically signed by: Joseluis Jacobsen M.D. 10/27/2021 3:35 PM Echocardiogram: Left ventricular systolic function is normal There is mild mitral regurgitation Normal RVSP Borderline aortic root dilatation Hospital Course (1) Symptomatic bradycardia: * Admitted to PCU/tele * Stopped Atenolol and Diltiazem * External pacer pads in place * Updated echocardiogram--see above * Serial troponins negative x2 * Consult cardiology, appreciate recommendations--recommended changing to Metoprolol Succinate and Norvasc. * Med changes made in afternoon on 12/28, HR has been sinus in the 70s (2) Essential hypertension: * Continue Lisinopril/HCTZ * Stopped Diltiazem and Atenolol as noted above * Started on Metoprolol Succinate 25mg daily and Norvasc 5mg daily * BP controlled with these changes (3) Hypothyroidism: * TSH WNL * Continue Synthroid (4) BPH w urinary obs/LUTS: * Continue Proscar and Prazosin (5) COPD (chronic obstructive pulmonary disease): * w/o acute exacerbation, not hypoxic, no wheezing on exam * Continue Advair and PRN Albuterol (6) Chronic kidney disease, stage 3: * Baseline creatinine ~2.0 * Avoid nephrotoxic meds Pt monitored overnight after med changes made to ensure HR remained stable without further drops or symptoms. Pt tolerated changes and is doing well this morning. Has no complaints. He is felt to be medically stable for discharge home today. Advise f/u with PCP within 1 week of discharge. Discussed above plan with Dr. Alejandro who is in agreement. Total Time Total Time Spent Total Time Spent (In Minutes): >30 minutes Discharge Plan Discharge Items Patient Disposition: Home - Self-Care Reason For Visit: BRADYCARDIA Discharge Diagnosis: Slow heart rate Activity: Resume your previous activity Non-emergency contact: Primary Care Provider Call non-emergency contact if: you have any medication questions Follow-up/Referrals: Israel Patel MD [Primary Care Provider] - 11/05/21 2:00 pm Diet: Heart Healthy Addtl Attending Provider Instructions: - you were hospitalized due to a low heart rate of which was causing your symptoms prompting your ER visit - your medications (Atenolol and Diltiazem) which you take for your blood p ressure were discontinued - we updated an echocardiogram (an ultrasound of your heart) which did not demonstrate any significant abnormalities - you did not have a heart attack - we asked the heart doctors to see you. Dr. Vines recommended changing your medications. - we are stopping the Atenolol and the Diltiazem and you have been started on Norvasc 5mg daily and Metoprolol Succinate 25mg daily - since starting these medications, your heart rate has been stable - you will be discharged home today on these two new medications, no other medication changes were made - you will need to f/u with your family doctor within 1 week of discharge - contact your PCP for any questions/concerns that you may have - call 911 in event of a medical emergency Pending Studies at Discharge: No Stand-Alone Forms: My [facility], Smoking Cessation Medications and DC Order Prescriptions: New amlodipine [Norvasc] 5 mg Tablet 5 mg PO QAM Qty: 30 RF: 0 metoprolol succinate 25 mg Tablet Extended Release 24 Hr 25 mg PO QAM Qty: 30 RF: 0 Continued levothyroxine 25 mcg tablet 25 mcg PO DAILY Qty: 90 RF: 3 prazosin 5 mg capsule 5 mg PO QPM Qty: 30 RF: 2 melatonin 1 mg tablet 6 mg PO HS PRN (Reason: Sleep) RF: 0 finasteride 5 mg tablet 5 mg PO DAILY Qty: 30 RF: 11 docusate sodium [Dulcolax Stool Softener (dss)] 100 mg capsule 100 mg PO DAILY RF: 0 lisinopril-hydrochlorothiazide 10-12.5 mg tablet 1 tab PO QAM RF: 0 omeprazole 20 mg capsule,delayed release(DR/EC) 20 mg PO QAM RF: 0 cyanocobalamin (vitamin B-12) 100 mcg Tablet 200 mcg PO QAM RF: 0 thiamine HCl (vitamin B1) 100 mg Tablet 100 mg PO QAM RF: 0 allopurinol 100 mg Tablet 100 mg PO QPM RF: 0 folic acid 1 mg Tablet 1 mg PO QAM RF: 0 albuterol sulfate 90 mcg/actuation Hfa Aerosol Inhaler 2 puff INHALATION Q6H PRN (Reason: Shortness Of Breath) RF: 0 garlic Tablet 500 mg PO QPM RF: 0 omega 7-ccf-oat-fish oil [Fish Oil] 1,000 mg (120 mg-180 mg) Capsule 1 cap PO BID RF: 0 venlafaxine 75 mg Tablet Extended Release 24hr 225 mg PO QAM RF: 0 fexofenadine 180 mg Tablet 180 mg PO QAM RF: 0 fluticasone propion-salmeterol [Wixela Inhub] 100-50 mcg/dose Blister With Device 1 inh INHALATION BID RF: 0 Discontinued diltiazem HCl 180 mg Capsule,Ext.Rel 24h Degradable 180 mg PO QAM RF: 0 atenolol 25 mg Tablet 25 mg PO QAM RF: 0 Discharge Orders: Discharge Order (Routine); Ordered 10/29/21 Ordered By: Carloz Alejandro Admission Data Admit Date/Time: 10/27/21 17:38 Attending Provider: Carloz Alejandro Admit Provider: Cornell Douglas Primary Care Provider: Israel Patel Other Providers: Cornell Douglas ; Kev Fried ; Jin Carlson ; Edu Llanos ; Nemesio Disla ; Fernando Lam Jr ; Delmar Bosch ; Dhara Garcia ; Marianela Chacon ; Ronaldo Carrion ; Israel Vines ; Des Saeed ; Stacy Umaña ; Flor Guzman ; Buster Mata ; Lele Henry ; Wilfredo Ospina ; [facility] ; Carloz Alejandro Other Interventions: Discharge Summary Assessment (RN) Last Done: 10/29/21 10:59 Supervising Physician Co-Signing Physician Notes Patient seen and examined on the day of discharge. I agree with the discharge summary by Emma ESPINOZA. I have reviewed the chart including labs, imaging and plans for discharge. patient feeling great, anxious to go home appreciate recommendations from Dr. Vines - Symptomatic bradycardia stop Atenolol, placed on metoprolol succinate monitored in hospital, no issues on metoprolol - Hypertension Atenolol and Diltiazem stopped now on metoprolol and norvasc Coding Level of Care Code D/C DAY MANAGEMENT >30 MINS Diagnoses Symptomatic bradycardia R00.1 Essential hypertension I10 Hypothyroidism E03.9 BPH w urinary obs/LUTS N40.1; N13.8 COPD (chronic obstructive pulmonary disease) J44.9 Chronic kidney disease, stage 3 N18.3
[2021-10-29] MEDS ORDERED: amLODIPine BESYLATE 5 MG TAB PO SCH (09:00)
[2021-10-29] MEDS: OMEGA-3 (PURIFIED FISH OIL) 1 GM CAP PO SCH (09:18)
[2021-10-29] MEDS: PANTOprazole 40 MG TAB PO SCH (09:18)
[2021-10-29] MEDS: METOPROLOL SUCC 25MG EXT REL TAB PO SCH (09:19)
[2021-10-29] MEDS: amLODIPine BESYLATE 5 MG TAB PO SCH (09:19)
[2021-10-29] MEDS: VENLAFAXINE HCL XR 75 MG CAPXR PO SCH (09:20)
[2021-10-29] MEDS: CYANOCOBALAMIN (VITAMIN B-12) 100 MCG TABLET PO SCH (09:20)
[2021-10-29] MEDS: DOCUSATE SODIUM 100 MG CAP PO SCH (09:20)
[2021-10-29] MEDS: LISINOPRIL/HCTZ 10/12.5MG TAB PO SCH (09:21)
[2021-10-29] MEDS: FEXOFENADINE HCL 180 MG TAB PO SCH (09:21)
[2021-10-29] MEDS: FOLIC ACID 1 MG TAB PO SCH (09:21)
[2021-10-29] MEDS: FINASTERIDE 5 MG TAB PO SCH (09:22)
[2021-10-29] MEDS: THIAMINE HCL 100 MG TAB PO SCH (09:22)
[2021-10-29] MEDS: LEVOTHYROXINE SODIUM 25 MCG TABLET PO SCH (09:22)
[2021-10-29] MEDS: FLUTICASONE/VILANTEROL 100/25MCG 14 PUFFS/INHALER INH SCH (09:23)
[2021-10-29] MEDS: ACETAMINOPHEN 325 MG TAB PO PRN (09:28)
== END 2021-10-29 11:49 | disposition home or self-care (01) | DRG 310 ==
LOC: ED 15:04 → SUATTDRO 17:38 → EDINP 17:38 → 2S 10-28 16:18

== ENCOUNTER 2021-12-20 02:16 | Inpatient (IN) ==
--- NOTE | 2021-12-20 02:27 | Emergency Department Note ---
History of Present Illness General Chief complaint: Heart Alert Stated complaint: CHEST PAIN - HEART ALERT Time Seen by Provider: 12/20/21 02:24 Source: patient and EMS Mode of arrival: EMS Limitations: no limitations History of Present Illness Provider complaint: chest pain Onset (ago): hour(s) 2 Location: chest Radiation: neck and extremity Severity: mild Exacerbated By: + movement Associated symptoms: + chest pain and + shortness of breath; no loss of appetite or no nausea/vomiting Treatments prior to arrival: none This is an 81-year-old male presents the emergency department via EMS due to concern for chest pain. EMS did contact medical command in route due to concern for evolving changes on EKG suggestive of AL. A heart alert was activated prehospital. Patient states his chest pain woke him up from sleep around 12:30 AM. Patient states the pain was in the central and left side of the chest, radiating into the left shoulder, left arm, and left neck/jaw. On EMS arrival, first EKG reassuring, patient given 2 sprays of nitro for his pain, however blood pressure subsequently dropped. IV was started and patient started on IV f luids. Patient was not given aspirin due to reported allergy. Patient was then given 50 mcg of fentanyl for pain after blood pressure improved. Patient states he is still having pain. Patient states when he first woke up with pain he did give himself a breathing treatment as he was short of breath in addition. Patient does have nebulizer treatments at home due to history of COPD. Patient denies any coming diaphoresis or nausea. Patient denies dizziness or lightheadedness. Patient states he has previously had cardiac catheterizations however no stents were placed. Patient has previously seen cardiology. Pt seen during a time of high acuity and national emergency pandemic while weari ng PPE. Home Medications Medication Instructions Recorded Confirmed Type albuterol sulfate 90 mcg/actuation 2 puff INHALATION Q6H PRN 08/10/18 12/20/21 History aerosol inhaler allopurinol 100 mg tablet 100 mg PO QPM 08/10/18 12/20/21 History cyanocobalamin (vitamin B-12) 100 200 mcg PO QAM 08/10/18 12/20/21 History mcg tablet folic acid 1 mg tablet 1 mg PO QAM 08/10/18 12/20/21 History garlic 500 mg PO QPM 08/10/18 12/20/21 History thiamine HCl (vitamin B1) 100 mg 100 mg PO QAM 08/10/18 12/20/21 History tablet fexofenadine 180 mg tablet 180 mg PO QAM 12/02/18 12/20/21 History lisinopril 10 1 tab PO QAM 05/17/19 12/20/21 History mg-hydrochlorothiazide 12.5 mg tablet prazosin 5 mg capsule 5 mg PO QPM #30 cap 11/15/19 12/20/21 Rx venlafaxine 75 mg tablet,extended 225 mg PO QAM 04/06/20 12/20/21 History release 24 hr finasteride 5 mg tablet 5 mg PO DAILY #30 tab 07/24/20 12/20/21 Rx levothyroxine 25 mcg tablet 25 mcg PO DAILY #90 tab 08/11/21 12/20/21 Rx amlodipine 5 mg tablet (Norvasc) 5 mg PO QAM #30 tab 10/29/21 12/20/21 Rx fluticasone 500 mcg-salmeterol 50 1 inh INHALATION BID 12/20/21 12/20/21 History mcg/dose blistr powdr for inhalation fluticasone fur. 100 mcg-umeclid 1 inh INHALATION DAILY 12/20/21 12/20/21 History 62.5 mcg-vilant 25 mcg inhalat.powder melatonin 3 mg tablet 9 mg PO HS PRN 12/20/21 12/20/21 History metoprolol succinate 50 mg 25 mg PO DAILY 12/20/21 12/20/21 History tablet,extended release 24 hr montelukast 10 mg tablet 10 mg PO DAILY 12/20/21 12/20/21 History olopatadine 0.1 % eye drops 1 drp OPB DAILY 12/20/21 12/20/21 History omega-3 fatty acids 1,000 mg PO DAILY 12/20/21 12/20/21 History Allergies Allergy/AdvReac Type Severity Reaction Status Date / Time aspirin Allergy Severe hives and Verified 12/20/21 03:01 mouth/throat swelling, hyperventilation ketorolac Allergy Unknown avoids Verified 12/20/21 03:01 secondary to aspirin component Ikmbixm-QHL-KiY Reductase AdvReac Intermediate severe Verified 12/20/21 03:01 Inhibitor muscle [Gmyqczm-Syx-Bcp Reductase cramps Inhibitor] oxycodone AdvReac Mild MENTAL Verified 12/20/21 03:01 STATUS CHANGES Past Med/Surg History Medical History Alcohol dependence QUIT 2018 Anxiety and depression Arthritis Asthma using PRN inh multiple x daily at present. recent asthma attack 1 mo ago; completed steroid taper. Benign essential tremor HANDS BPH (benign prostatic hyperplasia) Carotid artery stenosis S/P RIGHT CEA (08/2018) Cervical facet joint syndrome Chronic back pain Chronic kidney disease, stage 3 COPD (chronic obstructive pulmonary disease) Degenerative disc disease Deviated nasal septum GERD (gastroesophageal reflux disease) CONTROLLED Hearing deficit History of colon cancer REMOVED COLON POLYP + (NO OTHER INTERVENTION NEEDED) Hx of gout Hyperlipidemia Hypertension Hypothyroidism Lumbar radiculopathy Osteoarthritis Positive colorectal cancer screening using Cologuard test Post traumatic stress disorder Scoliosis Seasonal allergies Sleep apnea NO DEVICE (COULD NOT TOLERATE) Temporomandibular joint dysfunction syndrome Surgical History History of cardiac cath - NO STENTS History of cataract surgery History of cervical spinal surgery C3-5 ACDF History of colonoscopy W/ POLYPECTOMY History of difficult intubation C3-5 ACDF= 08/23/17= Grade view 2, Glidescope#4, ETT 8.0 (Head/neck neutral for intubation) at [facility] History of esophagogastroduodenoscopy (EGD) History of lumbar fusion L4-L5 History of right-sided carotid endarterectomy History of tonsillectomy History of tooth extraction History of total knee replacement LEFT History of total shoulder replacement RIGHT/LEFT Family History Sister Breast cancer Cancer Hypertension Brother Myocardial infarction COPD (chronic obstructive pulmonary disease) Hypertension Father Hypertension Mother Hypertension Other No family history of adverse response to anesthesia Denies family history of Ovarian cancer Prostate cancer Diabetes Colorectal cancer Social History Smoking Status: Never smoker Tobacco Type: Smokeless Tobacco (Dip or Chew) Age Started Using Tobacco: 14; Age Quit Using Tobacco: 36; packs per day: 2; Second Hand Exposure: No; Hx Alcohol Use: No Hx Substance Use: No Preferred Language: Grenadian Communication Ability: Effective Visual Impairment: No Limitations Hearing Ability: Use of Hearing Aid Hot Stone Setter Required: No Beliefs That Will Affect Care: None marital status: / Current Living Situation: Alone current occupational status: retired 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, 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 How many Children do You have: 6 Feels Safe at Home: Yes Childhood Exposure to Second-Hand Smoke: Yes caffeine: Yes Dental Care, Regularly: No Physical Activity Frequency: Daily Seatbelt Use: always Sunscreen Use: Yes Assistive Devices: None Review of Systems A total of 10 systems reviewed and were otherwise negative All systems reviewed & are unremarkable except as noted in HPI & below Physical Exam Vital Signs Vital Signs - 24 hr 12/20/21 02:28 12/20/21 02:35 Temperature 36.5 C Temperature Source Oral Pulse Rate 89 Pulse Rate [Right] 79 Respiratory Rate 18 16 Respiratory Effort / Characteristics Non-Labored Spontaneous Non-Labored Spontaneous Respiratory Depth Normal Normal Blood Pressure 96/73 L Blood Pressure [Right Arm] 125/75 Blood Pressure Mean 80 Blood Pressure Mean [Right Arm] 91 Blood Pressure Position Lying Blood Pressure Position [Right Arm] Lying Pulse Oximetry 94 96 Oxygen Delivery Method Nasal Cannula Nasal Cannula Oxygen Flow Rate 2 2 Sepsis Recent Fever Within 48 Hours No Sepsis New/Unexplained Change in Mental Status N/A Sepsis Action Taken by Nursing No Action Required GENERAL: alert, well appearing, well nourished, no distress, non-toxic EYE EXAM: normal conjunctiva, PERRL and EOM's grossly intact OROPHARYNX: no exudate, no erythema, lips, buccal mucosa, and tongue normal and mucous membranes are moist NECK: supple, no nuchal rigidity, no adenopathy, non-tender LUNGS: Clear to auscultation. Normal chest wall mechanics, no w/r/r HEART: no murmurs, S1 normal and S2 normal ABDOMEN: abdomen soft, non-tender, normo-active bowel sounds, no masses, no rebound or guarding. BACK: Back is symmetrical on inspection and there is no deformity, no midline tenderness, no CVA tenderness. SKIN: no rashes and no bruising UPPER EXTREMITIES: upper extremities are grossly normal. FROM, nml pulses b/l. LOWER EXTREMITIES: No pitting edema. FROM, nml pulses b/l. NEURO EXAM: Normal sensorium, cranial nerves II-XII grossly intact, normal speech, no gross weakness of arms, no gross weakness of legs. Gross sensation intact. Course Administered Medications Discontinued Medications Fentanyl Citrate (Fentanyl Citrate 100 Mcg/2 Ml Vial) Confirm Administered Dose 100 mcg .ROUTE .STK-MED ONE Stop: 12/20/21 02:36 Last Increment: 12/20/21 03:52 Dose: 25 mcg Documented by: [id number] Increment: 12/20/21 02:36 Dose: 50 mcg Documented by: [id number] Fentanyl Citrate (Fentanyl Citrate 100 Mcg/2 Ml Vial) Confirm Administered Dose 100 mcg .ROUTE .STK-MED ONE Stop: 12/20/21 02:36 Last Admin: 12/20/21 03:40 Dose: 100 mcg Documented by: [id number] Heparin Sodium (Porcine) (Heparin (Porcine) 1000 Unit/Ml 10 Ml (Restaurant Shift Supervisor Use Only)) Confirm Administered Dose 10,000 units .ROUTE .STK-MED ONE Stop: 12/20/21 02:36 Last Admin: 12/20/21 03:32 Dose: 9,000 units Documented by: [id number] Heparin Sodium/Sodium Chloride (Heparin In Nss Infusion 1000 Unit/500 Ml (2 U/Ml) Bag) Confirm Administered Dose 3,000 units IV .STK-MED ONE Stop: 12/20/21 02:36 Last Admin: 12/20/21 03:31 Dose: 3,000 units Documented by: [id number] Midazolam HCl (Midazolam Hcl 1 Mg/Ml 2ml Vial) Confirm Administered Dose 2 mg .ROUTE .STK-MED ONE Stop: 12/20/21 02:36 Last Admin: 12/20/21 03:40 Dose: 2 mg Documented by: [id number] Nicardipine HCl (Nicardipine Hcl Inj 2.5 Mg/Ml 10 Ml Amp) Confirm Administered Dose 25 mg .ROUTE .STK-MED ONE Stop: 12/20/21 02:36 Last Admin: 12/20/21 03:31 Dose: 25 mg Documented by: [id number] Nitroglycerin/Dextrose (Nitroglycerin/D5w 100mcg/Ml 20ml Syr) Confirm Administ ered Dose 2,000 mcg .ROUTE .STK-MED ONE Stop: 12/20/21 02:36 Last Admin: 12/20/21 03:31 Dose: 2,000 mcg Documented by: [id number] Ticagrelor (Ticagrelor 90 Mg Tab) Confirm Administered Dose 90 mg PO .STK-MED ONE Stop: 12/20/21 02:31 Last Admin: 12/20/21 02:36 Dose: 90 mg Documented by: [id number] Ticagrelor (Ticagrelor 90 Mg Tab) 180 mg PO ONE ONE Stop: 12/20/21 02:40 Last Admin: 12/20/21 02:41 Dose: 90 mg Documented by: [id number] Medical Decision Making Medical Records Attestation: I reviewed the patient's medical records. Home Medications Current Medication List: was personally reviewed by me Laboratory Data Attestation: I reviewed the patient's lab results. Result diagrams: 12/20/21 02:22 12/20/21 02:22 Lab Results 12/20/21 12/20/21 12/20/21 Range/Units 02: 02: 02:22 WBC 6.78 (4.8-10.8) K/uL RBC 4.31 L (4.7-6.1) M/uL Hgb 13.7 L (14.0-18.0) g/dL Hct 40.5 L (42-52) % MCV 94.0 (80-100) fL MCH 31.8 (25-34) pg MCHC 33.8 (32-36) g/dL RDW Std Deviation 47.1 H (36.4-46.3) fL RDW Coeff of Zelalem 13.5 (11.5-14.5) % Plt Count 191 (130-400) K/uL MPV 10.0 (7.4-10.4) fL Immature Gran % (Auto) 0.1 % Neut % (Auto) 58.2 % Lymph % (Auto) 26.4 % Woodruff % (Auto) 7.8 % Eos % (Auto) 7.4 % Baso % (Auto) 0.1 % Neut # (Auto) 3.94 (1.4-6.5) K/uL Lymph # (Auto) 1.79 (1.2-3.4) K/uL Woodruff # (Auto) 0.53 (0.11-0.59) K/uL Eos # (Auto) 0.50 (0-0.5) K/uL Baso # (Auto) 0.01 (0-0.2) K/uL Immature Gran # (Auto) 0.01 (0.00-0.02) K/uL PT 9.8 (9.0-12.0) Seconds INR 1.0 (0.9-1.1) APTT 27.1 (21.0-31.0) Seconds PTT Ratio 1.0 Activ Coag Time Kaolin (94-140) SECONDS Sodium 137 (136-145) mmol/L Potassium 4.0 (3.5-5.1) mmol/L Chloride 108 H (98-107) mmol/L Carbon Dioxide 22 (21-32) mmol/L Anion Gap 7 (3-11) BUN 33 H (6-23) mg/dl Creatinine 2.02 H (0.6-1.4) mg/dl Est Cr Clr Drug Dosing 30.5 ml/min Est GFR ( Amer) 34.8 ml/min Est GFR (Non-Af Amer) 30.0 ml/min BUN/Creatinine Ratio 16.3 (10-20) Glucose 111 H (70-99(Fasting)) mg/dl Calcium 9.1 (8.5-10.1) mg/dl Magnesium 1.5 L (1.7-2.4) mg/dl Total Bilirubin 0.4 (0.2-1.0) mg/dl AST 14 (13-39) U/L ALT 9 (7-52) U/L Alkaline Phosphatase 56 (34-104) U/L Total Creatine Kinase 125 (30-223) U/L Troponin I 0.61 H* (0-0.04) ng/ml B-Natriuretic Peptide (0-100) pg/ml Total Protein 5.8 L (6.0-8.3) gm/dl Albumin 3.5 (3.4-5.0) gm/dl Globulin 2.3 L (2.5-4.0) gm/dl Albumin/Globulin Ratio 1.5 (0.9-2) Lipase 21 (11-82) U/L TSH (0.300-4.500) uIu/ml Free T4 (0.61-1.60) ng/dl SARS-CoV-2, RNA, NAAT (NEGATIVE) 12/20/21 12/20/21 12/20/21 Range/Units 02:22 02:22 02:28 WBC (4.8-10.8) K/uL RBC (4.7-6.1) M/uL Hgb (14.0-18.0) g/dL Hct (42-52) % MCV (80-100) fL MCH (25-34) pg MCHC (32-36) g/dL RDW Std Deviation (36.4-46.3) fL RDW Coeff of Zelalem (11.5-14.5) % Plt Count (130-400) K/uL MPV (7.4-10.4) fL Immature Gran % (Auto) % Neut % (Auto) % Lymph % (Auto) % Woodruff % (Auto) % Eos % (Auto) % Baso % (Auto) % Neut # (Auto) (1.4-6.5) K/uL Lymph # (Auto) (1.2-3.4) K/uL Woodruff # (Auto) (0.11-0.59) K/uL Eos # (Auto) (0-0.5) K/uL Baso # (Auto) (0-0.2) K/uL Immature Gran # (Auto) (0.00-0.02) K/uL PT (9.0-12.0) Seconds INR (0.9-1.1) APTT (21.0-31.0) Seconds PTT Ratio Activ Coag Time Kaolin (94-140) SECONDS Sodium (136-145) mmol/L Potassium (3.5-5.1) mmol/L Chloride (98-107) mmol/L Carbon Dioxide (21-32) mmol/L Anion Gap (3-11) BUN (6-23) mg/dl Creatinine (0.6-1.4) mg/dl Est Cr Clr Drug Dosing ml/min Est GFR ( Amer) ml/min Est GFR (Non-Af Amer) ml/min BUN/Creatinine Ratio (10-20) Glucose (70-99(Fasting)) mg/dl Calcium (8.5-10.1) mg/dl Magnesium (1.7-2.4) mg/dl Total Bilirubin (0.2-1.0) mg/dl AST (13-39) U/L ALT (7-52) U/L Alkaline Phosphatase (34-104) U/L Total Creatine Kinase (30-223) U/L Troponin I (0-0.04) ng/ml B-Natriuretic Peptide 76 (0-100) pg/ml Total Protein (6.0-8.3) gm/dl Albumin (3.4-5.0) gm/dl Globulin (2.5-4.0) gm/dl Albumin/Globulin Ratio (0.9-2) Lipase (11-82) U/L TSH 4.738 H (0.300-4.500) uIu/ml Free T4 0.85 (0.61-1.60) ng/dl SARS-CoV-2, RNA, NAAT NEGATIVE (NEGATIVE) 12/20/21 Range/Units 03:22 WBC (4.8-10.8) K/uL RBC (4.7-6.1) M/uL Hgb (14.0-18.0) g/dL Hct (42-52) % MCV (80-100) fL MCH (25-34) pg MCHC (32-36) g/dL RDW Std Deviation (36.4-46.3) fL RDW Coeff of Zelalem (11.5-14.5) % Plt Count (130-400) K/uL MPV (7.4-10.4) fL Immature Gran % (Auto) % Neut % (Auto) % Lymph % (Auto) % Woodruff % (Auto) % Eos % (Auto) % Baso % (Auto) % Neut # (Auto) (1.4-6.5) K/uL Lymph # (Auto) (1.2-3.4) K/uL Woodruff # (Auto) (0.11-0.59) K/uL Eos # (Auto) (0-0.5) K/uL Baso # (Auto) (0-0.2) K/uL Immature Gran # (Auto) (0.00-0.02) K/uL PT (9.0-12.0) Seconds INR (0.9-1.1) APTT (21.0-31.0) Seconds PTT Ratio Activ Coag Time Kaolin 273 H (94-140) SECONDS Sodium (136-145) mmol/L Potassium (3.5-5.1) mmol/L Chloride (98-107) mmol/L Carbon Dioxide (21-32) mmol/L Anion Gap (3-11) BUN (6-23) mg/dl Creatinine (0.6-1.4) mg/dl Est Cr Clr Drug Dosing ml/min Est GFR ( Amer) ml/min Est GFR (Non-Af Amer) ml/min BUN/Creatinine Ratio (10-20) Glucose (70-99(Fasting)) mg/dl Calcium (8.5-10.1) mg/dl Magnesium (1.7-2.4) mg/dl Total Bilirubin (0.2-1.0) mg/dl AST (13-39) U/L ALT (7-52) U/L Alkaline Phosphatase (34-104) U/L Total Creatine Kinase (30-223) U/L Troponin I (0-0.04) ng/ml B-Natriuretic Peptide (0-100) pg/ml Total Protein (6.0-8.3) gm/dl Albumin (3.4-5.0) gm/dl Globulin (2.5-4.0) gm/dl Albumin/Globulin Ratio (0.9-2) Lipase (11-82) U/L TSH (0.300-4.500) uIu/ml Free T4 (0.61-1.60) ng/dl SARS-CoV-2, RNA, NAAT (NEGATIVE) MDM Narrative This is an 81-year-old male brought in as a heart alert by EMS. Patient with active chest pain, and accompanying EKG changes. Patient became hypotensive following ministration of nitro by EMS. He was subsequently given fentanyl and IV fluids started. IV fluids continued here as patient first blood pressure mildly low, after improvement patient was given additional dose of fentanyl due to ongoing pain. Patient given Brilinta per cardiology recommendations and interventional cardiology Dr. Carrion did come and evaluate the patient at bedside prior to taking him for cardiac catheterization. I did call and update the patient's daughter per his request. Patient did continue to be stable in the emergency room, however had ongoing pain. Patient verbalized understanding of results, our concern for ACS, need for urgent intervention. He was in agreement. An order was placed for continuous cardiac monitoring. The monitor shows a rate of _80_ with normal sinus_ rhythm. Impression & Plan Chest pain, Essential hypertension, Tobacco use, ST elevation (STEMI) myocardial infarction, COPD (chronic obstructive pulmonary disease), CKD (chronic kidney disease) Discharge Plan Visit Data Chief Complaint: Heart Alert Stated Complaint: CHEST PAIN - HEART ALERT ED Provider: Aspen Hein Discharge Problem: Chest pain, Essential hypertension, Tobacco use, ST elevation (STEMI) myocardial infarction, COPD (chronic obstructive pulmonary disease), CKD (chronic kidney disease) Patient Disposition: Still a Patient Discharge Instructions Interventions: ED Discharge Assessment Last Done: 12/20/21 02:44
[2021-12-20] MEDS ORDERED: TICAGRELOR 90 MG TAB PO ONE ×2 (02:30→02:39)
[2021-12-20] MEDS ORDERED: fentaNYL citrate 100 MCG/2 ML VIAL IV PRN (02:34)
[2021-12-20] MEDS ORDERED: MIDAZOLAM HCL 1 MG/ML 2ML VIAL ONE (02:35)
[2021-12-20] MEDS ORDERED: niCARdipine HCL INJ 2.5 MG/ML 10 ML AMP ONE (02:35)
[2021-12-20] MEDS ORDERED: HEPARIN (PORCINE) 1000 UNIT/ML 10 ML (CATH LAB USE ONLY) ONE (02:35)
[2021-12-20] MEDS ORDERED: NITROGLYCERIN/D5W 100MCG/ML 20ML SYR ONE (02:35)
[2021-12-20] MEDS ORDERED: fentaNYL citrate 100 MCG/2 ML VIAL ONE ×2 (02:35)
[2021-12-20 02:47] LABS: Basophils # (auto) 0.01 K/uL (0-0.2); Basophils % (auto) 0.1 %; Eosinophils % (auto) 7.4 %; Hematocrit (blood only) 40.5 % (42-52); Hemoglobin 13.7 g/dL (14.0-18.0); Immature Granulocytes # (auto) 0.01 K/uL (0.00-0.02); Immature Granulocytes % (auto) 0.1 %; Lymphocytes # (auto) 1.79 K/uL (1.2-3.4); Lymphocytes % (auto) 26.4 %; Mean Corpuscular Hemoglobin 31.8 pg (25-34); Mean Corpuscular Hgb Conc 33.8 g/dL (32-36); Monocytes # (auto) 0.53 K/uL (0.11-0.59); Monocytes % (auto) 7.8 %; Neutrophils # (auto) 3.94 K/uL (1.4-6.5); Neutrophils % (auto) 58.2 %; Platelet Count 191 K/uL (130-400); RDW Coefficient of Variation 13.5 % (11.5-14.5); RDW Standard Deviation 47.1 fL (36.4-46.3); Red Blood Count 4.31 M/uL (4.7-6.1); White Blood Count 6.78 K/uL (4.8-10.8)
--- NOTE | 2021-12-20 02:48 | Pre Anesthesia Assessment ---
Date of Service December 20, 2021 Pre Sedation Assessment Vital Signs Temp Pulse Pulse Resp BP BP Pulse Ox 12/20/21 02:35 79 16 125/75 96 12/20/21 02:28 97.7 F 89 18 96/73 L 94 Cardiovascular RRR, no murmur, no edema Respiratory normal respiratory effort, lungs clear to auscultation Pre-Sedation Airway Assessment Smoking Status: Never smoker Hx Sleep Apnea: No Hx Difficult Intubation: No Short, Thick Neck: No Thyromental Distance: < 3.5 Finger Breadths Mallampati Class: III ASA: ASA4 Procedure Planning Contraindications for Sedation: none Current Medications Reviewed: Yes Notes The planned sedation has been discussed with the patient. Informed Consent was obtained. I have identified the patient, determined the appropriateness of sedation and have assessed the patient immediately prior to the procedure. All medicine(s) and interventions are by my order.
--- NOTE | 2021-12-20 02:50 | Cardiology Consultation ---
Date of Consultation December 20, 2021 Assessment & Plan (1) STEMI (ST elevation myocardial infarction): Presentation consistent with inferolateral STEMI and recommend proceeding with emergent cardiac catheterization and likely primary PCI. No apparent contraindications to procedure. Discussed risks, benefits, alternatives of procedure with patient and they are willing to proceed. Given IV ticagrelor 180 mg in the ED. Further recommendations pending findings of coronary angiography. History of Present Illness History of Present Illness 81-year-old man here with acute chest pain and ECG concerning for acute MT. Patient seen emergently in the ED after heart alert activated en route. No history of coronary artery disease. Does report he had 2 prior cardiac catheterizations in [place] years ago but no stents. Recently hospitalized for presyncope 10/2021 in the setting of sinus bradycardia. Seen by EP, was on diltiazem, atenolol, now on Toprol-XL. Echocardiogram at that time showed LVEF 60 to 65%, mild MR, borderline aortic root dilation. Has been doing fine since that admission. Other medical issues include stage III chronic kidney disease with baseline creatinine around 2.0, hypertension asthma/COPD, hypothyroidism BPH, ALEXSANDRA intolerant of CPAP and peripheral arterial disease post right carotid enterectomy 08/2018. Chest pain began approximately 12:30 AM (~2 hrs prior to arrival) awakening him from sleep. Describes substernal pain radiating to his left arm, neck with associated nausea, diaphoresis. Denies similar symptoms in the past. Given nitroglycerin in route with reported hypotension. Fentanyl in ED. Chest pain at time of arrival still 8/10. Hemodynamically stable. EKG showed sinus rhythm inferolateral ST elevations. Allergies Allergy/AdvReac Type Severity Reaction Status Date / Time aspirin Allergy Severe hives and Verified 12/20/21 03:01 mouth/throat swelling, hyperventilation ketorolac Allergy Unknown avoids Verified 12/20/21 03:01 secondary to aspirin component Rtywfvj-RMP-RoN Reductase AdvReac Intermediate severe Verified 12/20/21 03:01 Inhibitor muscle [Fbfaqif-Qub-Fgx Reductase cramps Inhibitor] oxycodone AdvReac Mild MENTAL Verified 12/20/21 03:01 STATUS CHANGES Home Medications Medication Instructions Recorded Confirmed Type albuterol sulfate 90 mcg/actuation 2 puff INHALATION Q6H PRN 08/10/18 12/20/21 History aerosol inhaler allopurinol 100 mg tablet 100 mg PO QPM 08/10/18 12/20/21 History cyanocobalamin (vitamin B-12) 100 200 mcg PO QAM 08/10/18 12/20/21 History mcg tablet folic acid 1 mg tablet 1 mg PO QAM 08/10/18 12/20/21 History garlic 500 mg PO QPM 08/10/18 12/20/21 History thiamine HCl (vitamin B1) 100 mg 100 mg PO QAM 08/10/18 12/20/21 History tablet fexofenadine 180 mg tablet 180 mg PO QAM 12/02/18 12/20/21 History lisinopril 10 1 tab PO QAM 05/17/19 12/20/21 History mg-hydrochlorothiazide 12.5 mg tablet prazosin 5 mg capsule 5 mg PO QPM #30 cap 11/15/19 12/20/21 Rx venlafaxine 75 mg tablet,extended 225 mg PO QAM 04/06/20 12/20/21 History release 24 hr finasteride 5 mg tablet 5 mg PO DAILY #30 tab 07/24/20 12/20/21 Rx levothyroxine 25 mcg tablet 25 mcg PO DAILY #90 tab 08/11/21 12/20/21 Rx amlodipine 5 mg tablet (Norvasc) 5 mg PO QAM #30 tab 10/29/21 12/20/21 Rx fluticasone 500 mcg-salmeterol 50 1 inh INHALATION BID 12/20/21 12/20/21 History mcg/dose blistr powdr for inhalation fluticasone fur. 100 mcg-umeclid 1 inh INHALATION DAILY 12/20/21 12/20/21 History 62.5 mcg-vilant 25 mcg inhalat.powder melatonin 3 mg tablet 9 mg PO HS PRN 12/20/21 12/20/21 History metoprolol succinate 50 mg 25 mg PO DAILY 12/20/21 12/20/21 History tablet,extended release 24 hr montelukast 10 mg tablet 10 mg PO DAILY 12/20/21 12/20/21 History olopatadine 0.1 % eye drops 1 drp OPB DAILY 12/20/21 12/20/21 History omega-3 fatty acids 1,000 mg PO DAILY 12/20/21 12/20/21 History Patient History Medical History Alcohol dependence QUIT 2018 Anxiety and depression Arthritis Asthma using PRN inh multiple x daily at present. recent asthma attack 1 mo ago; completed steroid taper. Benign essential tremor HANDS BPH (benign prostatic hyperplasia) Carotid artery stenosis S/P RIGHT CEA (08/2018) Cervical facet joint syndrome Chronic back pain Chronic kidney disease, stage 3 COPD (chronic obstructive pulmonary disease) Degenerative disc disease Deviated nasal septum GERD (gastroesophageal reflux disease) CONTROLLED Hearing deficit History of colon cancer REMOVED COLON POLYP + (NO OTHER INTERVENTION NEEDED) Hx of gout Hyperlipidemia Hypertension Hypothyroidism Lumbar radiculopathy Osteoarthritis Positive colorectal cancer screening using Cologuard test Post traumatic stress disorder Scoliosis Seasonal allergies Sleep apnea NO DEVICE (COULD NOT TOLERATE) Temporomandibular joint dysfunction syndrome Surgical History History of cardiac cath - NO STENTS History of cataract surgery History of cervical spinal surgery C3-5 ACDF History of colonoscopy W/ POLYPECTOMY History of difficult intubation C3-5 ACDF= 08/23/17= Grade view 2, Glidescope#4, ETT 8.0 (Head/neck neutral for intubation) at [facility] History of esophagogastroduodenoscopy (EGD) History of lumbar fusion L4-L5 History of right-sided carotid endarterectomy History of tonsillectomy History of tooth extraction History of total knee replacement LEFT History of total shoulder replacement RIGHT/LEFT Family History Sister Breast cancer Cancer Hypertension Brother Myocardial infarction COPD (chronic obstructive pulmonary disease) Hypertension Father Hypertension Mother Hypertension Other No family history of adverse response to anesthesia Denies family history of Ovarian cancer Prostate cancer Diabetes Colorectal cancer Social History Smoking Status: Never smoker Tobacco Type: Smokeless Tobacco (Dip or Chew) Age Started Using Tobacco: 14; Age Quit Using Tobacco: 36; packs per day: 2; Second Hand Exposure: No; Hx Alcohol Use: No Hx Substance Use: No Preferred Language: Uruguayan Communication Ability: Effective Visual Impairment: No Limitations Hearing Ability: Use of Hearing Aid Dent Remover Required: No Beliefs That Will Affect Care: None marital status: / Current Living Situation: Alone current occupational status: retired 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, 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 How many Children do You have: 6 Feels Safe at Home: Yes Childhood Exposure to Second-Hand Smoke: Yes caffeine: Yes Dental Care, Regularly: No Physical Activity Frequency: Daily Seatbelt Use: always Sunscreen Use: Yes Assistive Devices: None Review of Systems Review of Systems: All systems reviewed & are unremarkable except as noted in HPI & below Physical Exam Physical Exam: General: Comfortable HEENT: Sclerae anicteric Lungs: Clear to auscultation bilaterally Cardiac: Regular rate and rhythm Vascular: 2+ radial Abdomen: Soft, nontender Extremities: Well perfused, no peripheral edema Neuro: Nonfocal Psych: Alert orient x3, normal affect and mood Results & Data ([facility]) Vital Signs (Past 12 Hours) Vital Signs Temp Pulse Pulse Resp BP BP Pulse Ox 12/20/21 02:35 79 16 125/75 96 12/20/21 02:28 97.7 F 89 18 96/73 L 94 PG Care Time/CCT Total # of Minutes Spent Total Time Spent with Patient: Total time spent is greater than 50% in coordination of care (as documented) at patient's floor/unit and/or counseling patient: Coding Level of Care Code 18792 Initial Inpt Care Lvl 3 Diagnoses STEMI (ST elevation myocardial infarction) I21.3
[2021-12-20 02:59] LABS: Partial Thromboplastin Time 27.1 Seconds (21.0-31.0); Prothrombin Time 9.8 Seconds (9.0-12.0)
[2021-12-20 03:09] LABS: Albumin Globulin Ratio 1.5 (0.9-2); Albumin Level 3.5 gm/dl (3.4-5.0); BUN Creatinine Ratio 16.3 (10-20); Bilirubin,Total 0.4 mg/dl (0.2-1.0); Calcium 9.1 mg/dl (8.5-10.1); Creatinine Clr Calc Pharmacy 30.5 ml/min; Est GFR (African American) 34.8 ml/min; Globulin 2.3 gm/dl (2.5-4.0); Magnesium 1.5 mg/dl (1.7-2.4); Total Protein 5.8 gm/dl (6.0-8.3)
[2021-12-20 03:17] LABS: Troponin I 0.61 ng/ml (0-0.04)
[2021-12-20 03:23] LABS: Thyroid Stimulating Hormone 4.738 uIu/ml (0.300-4.500)
--- NOTE | 2021-12-20 03:54 | Post Anesthesia Assessment ---
Date of Service December 20, 2021 Post Sedation Assessment Vital Signs Temp Pulse Pulse Resp BP BP Pulse Ox 12/20/21 02:35 79 16 125/75 96 12/20/21 02:28 97.7 F 89 18 96/73 L 94 Recovery Score Activity: Moves 4 extremities Respiration: Deep Breath/Cough Circulation: +/-20% PreAnes Value Consciousness: Fully Awake Discharge Sedation Level of Care: Fast Track Phase II Post Sedation Plan On clinical assessment, the patient appears to have tolerated the sedation without complications. Patient is recovering as anticipated. Patient will continue to be monitored by nursing and may be discharged when sedation discharge criteria are met per below protocol. Upon Completions of procedure up to 15 minutes continue every 5 minute vital signs and the P.A.R. score; then discharge to a Phase I or Fast Track to Phase II per the following guidelines: * Discharge Patient to appropriate Phase II area if PAR is 8 or greater or return to pre- procedure baseline. The post - procedure orders will be as directed. * If PAR score is less than 8 or not return to pre-procedure baseline then patient will follow Phase I monitoring till PAR is reached for Phase II. The Phase I may be done in procedure room or may call to secure a Phase I area. * If naloxone or flumazenil are used for reversal, hold in Phase I for continued monitoring from when last reversal dose was given for a minimum of 60 minutes or longer pending the nurse and/or physician discretion of patient condition before discharge to Phase II. Please call the Sedation Physician to re-evaluate and complete post-note for discharge to Phase II area. Do NOT discharge from procedure sedation or Phase 1 until post- sedation evaluation note is complete by procedure /sedation MD Sedation Discharge Instructions to be given to the patient at discharge to home.
[2021-12-20] MEDS ORDERED: ONDANSETRON INJ 2 MG/ML 2 ML VIAL IV PRN (03:56)
[2021-12-20] MEDS ORDERED: NITROGLYCERIN SL 0.4 MG/TAB TAB SL PRN (03:56)
[2021-12-20] MEDS ORDERED: ACETAMINOPHEN 325 MG TAB PO PRN (03:56)
[2021-12-20 03:58] LABS: T4 Free Thyroxine 0.85 ng/dl (0.61-1.60)
[2021-12-20] MEDS ORDERED: SODIUM CHLORIDE 0.9% 1000ML 1,000 ML IV SCH (04:00)
[2021-12-20] MEDS ORDERED: ICU PROTOCOL FOR HYPERGLYCEMIA PRN (04:01)
--- NOTE | 2021-12-20 04:05 | History & Physical Report ---
Date of Service December 20, 2021 Assessment & Plan (1) STEMI (ST elevation myocardial infarction): Plan: 81 y/o M w/ PMHx of asthma, AAA, HTN, CKD3, tobacco use, BPH, hypothyroidism, COPD, ALEXSANDRA who presented w/ ACS and is s/p PCI w/ FERNANDO. Stable. substernal chest pain that woke him up from sleep shortly after midnight. He endorsed radiation down L arm and diaphoresis. Heart alert was called en-route. - ecg w/ inferior lead ST elevations (slight, but meeting criteria) and reciprocal ST depressions. - presented w/ classic anginal symptoms, new onset. in association w/ ecg changes, heart alert was called. - per cath report: - Inferolateral STEMI. 100% acute occlusion of codominant mid circumflex. Multivessel non-culprit coronary artery disease. 50-60% ostial, 40% mid LAD. 40- 50% distal RCA. Normal intracardiac filling pressure. Successful PCI of acute latemid circumflex occlusion into OM 2 with single drug-eluting stent (2.5 x 18 mm Frankie; postdilated with 3.0 NC). - cardiology recs: - Brillinta. Trial baby ASA. If unable to tolerate (hx of hypersensitivity w/ respiratory symptoms), single antiplatelet Plavix acceptable. - trend trop - echo pending. (2) Hypertension: Plan: - continue home lisinopril/hctz, amlodipine, and metoprolol (uptitrate as able). stable (3) Chronic kidney disease, stage 3: Plan: - stable (Cr ~2.0), follow bmp (4) Asthma: Plan: - continue home inhalers and Singulair (5) Lower urinary tract symptoms (LUTS): Plan: - continue home finasteride and prazosin (6) Ascending aortic aneurysm: Plan: - chronic (7) Hypothyroidism: Plan: - continue home levothyroxine 25mcg (8) Sleep apnea: Plan: - not on cpap at home due to intolerance. stable (9) Gout: Plan: - stable, continue home allopurinol Plan: FEN: HH. NSS 100mL/hr ppx: SCDs. Defer chemoppx to cardiology code: full dispo: ICU for management post-cath History of Present Illness Chief Complaint: STEMI Primary Care Provider: Israel Patel MD 81 y/o M w/ PMHx of asthma, AAA, HTN, CKD3, tobacco use, BPH, hypothyroidism, COPD, ALEXSANDRA, gout who presented w/ substernal chest pain that woke him up from sle ep shortly after midnight; he subsequently presented to the ED. He endorsed radiation down L arm and L posterior shoulder. Quality described as alternating between pressure and sharp. Constant. No allev/exac factors. + jaw pain. No diaphoresis, nausea. Had dyspnea day prior as well. Heart alert was called en- route. Some slight improvement w/ EMS nitro. Current pain 2/10, much improved. No current dyspnea. Prior to cath, was 10/10 chest pain. Couple days prior, had pain in his R foot, thought was gout flare. Last cath in w/o CAD per patient, performed for abnormal stress test. Quit tobacco in , 20+ years ppd. Denies family hx [place]/stroke. Denies prior hx of chest pain. ED course: Heart alert called en-route. Patient went to center medical and lab director for PCI unpon arrival and after initial ED exam. Allergies Allergy/AdvReac Type Severity Reaction Status Date / Time aspirin Allergy Severe hives and Verified 12/20/21 03:01 mouth/throat swelling, hyperventilation ketorolac Allergy Unknown avoids Verified 12/20/21 03:01 secondary to aspirin component Rwrffcq-KWT-EuL Reductase AdvReac Intermediate severe Verified 12/20/21 03:01 Inhibitor muscle [Rojnyfl-Rma-Dzc Reductase cramps Inhibitor] oxycodone AdvReac Mild MENTAL Verified 12/20/21 03:01 STATUS CHANGES Home Medications Medication Instructions Recorded Confirmed Type albuterol sulfate 90 mcg/actuation 2 puff INHALATION Q6H PRN 08/10/18 12/20/21 History aerosol inhaler allopurinol 100 mg tablet 100 mg PO QPM 08/10/18 12/20/21 History cyanocobalamin (vitamin B-12) 100 200 mcg PO QAM 08/10/18 12/20/21 History mcg tablet folic acid 1 mg tablet 1 mg PO QAM 08/10/18 12/20/21 History garlic 500 mg PO QPM 08/10/18 12/20/21 History thiamine HCl (vitamin B1) 100 mg 100 mg PO QAM 08/10/18 12/20/21 History tablet fexofenadine 180 mg tablet 180 mg PO QAM 12/02/18 12/20/21 History lisinopril 10 1 tab PO QAM 05/17/19 12/20/21 History mg-hydrochlorothiazide 12.5 mg tablet prazosin 5 mg capsule 5 mg PO QPM #30 cap 11/15/19 12/20/21 Rx venlafaxine 75 mg tablet,extended 225 mg PO QAM 04/06/20 12/20/21 History release 24 hr finasteride 5 mg tablet 5 mg PO DAILY #30 tab 07/24/20 12/20/21 Rx levothyroxine 25 mcg tablet 25 mcg PO DAILY #90 tab 08/11/21 12/20/21 Rx amlodipine 5 mg tablet (Norvasc) 5 mg PO QAM #30 tab 10/29/21 12/20/21 Rx fluticasone 500 mcg-salmeterol 50 1 inh INHALATION BID 12/20/21 12/20/21 History mcg/dose blistr powdr for inhalation fluticasone fur. 100 mcg-umeclid 1 inh INHALATION DAILY 12/20/21 12/20/21 History 62.5 mcg-vilant 25 mcg inhalat.powder melatonin 3 mg tablet 9 mg PO HS PRN 12/20/21 12/20/21 History metoprolol succinate 50 mg 25 mg PO DAILY 12/20/21 12/20/21 History tablet,extended release 24 hr montelukast 10 mg tablet 10 mg PO DAILY 12/20/21 12/20/21 History olopatadine 0.1 % eye drops 1 drp OPB DAILY 12/20/21 12/20/21 History omega-3 fatty acids 1,000 mg PO DAILY 12/20/21 12/20/21 History Past Med/Surg History Medical History Alcohol dependence QUIT 2018 Anxiety and depression Arthritis Asthma using PRN inh multiple x daily at present. recent asthma attack 1 mo ago; completed steroid taper. Benign essential tremor HANDS BPH (benign prostatic hyperplasia) Carotid artery stenosis S/P RIGHT CEA (08/2018) Cervical facet joint syndrome Chronic back pain Chronic kidney disease, stage 3 COPD (chronic obstructive pulmonary disease) Degenerative disc disease Deviated nasal septum GERD (gastroesophageal reflux disease) CONTROLLED Hearing deficit History of colon cancer REMOVED COLON POLYP + (NO OTHER INTERVENTION NEEDED) Hx of gout Hyperlipidemia Hypertension Hypothyroidism Lumbar radiculopathy Osteoarthritis Positive colorectal cancer screening using Cologuard test Post traumatic stress disorder Scoliosis Seasonal allergies Sleep apnea NO DEVICE (COULD NOT TOLERATE) Temporomandibular joint dysfunction syndrome Surgical History History of cardiac cath - NO STENTS History of cataract surgery History of cervical spinal surgery C3-5 ACDF History of colonoscopy W/ POLYPECTOMY History of difficult intubation C3-5 ACDF= 08/23/17= Grade view 2, Glidescope#4, ETT 8.0 (Head/neck neutral for intubation) at [facility] History of esophagogastroduodenoscopy (EGD) History of lumbar fusion L4-L5 History of right-sided carotid endarterectomy History of tonsillectomy History of tooth extraction History of total knee replacement LEFT History of total shoulder replacement RIGHT/LEFT Family History Sister Breast cancer Cancer Hypertension Brother Myocardial infarction COPD (chronic obstructive pulmonary disease) Hypertension Father Hypertension Mother Hypertension Other No family history of adverse response to anesthesia Denies family history of Ovarian cancer Prostate cancer Diabetes Colorectal cancer Social History Smoking Status: Former smoker Tobacco Type: Smokeless Tobacco (Dip or Chew) Age Started Using Tobacco: 14; Age Quit Using Tobacco: 36; packs per day: 2; Second Hand Exposure: No; Do You Dip or Chew Tobacco: No; Tobacco Cessation Education Requested by Patient: No Hx Alcohol Use: Yes Alcohol type: beer Hx Substance Use: No Preferred Language: Pakistani Communication Ability: Effective Visual Impairment: No Limitations Hearing Ability: Use of Hearing Aid Vacuum Spindle Sander Required: No Beliefs That Will Affect Care: None marital status: / Current Living Situation: Family current occupational status: retired 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 NAD. Cooperative. HEENT: Atraumatic, normocephalic. EOMI Pulm: CTAB. -wheezes, -rales, -rhonchi. No respiratory distress. Cardiac: RRR, -mrg. Radial pulses intact and symmetrical. No LE edema. Abdominal: Nontender, nondistended, soft. Integ: R wrist has TR band, slight amount of dried blood and small hematoma noted. Msk: Moving all extremities. Results & Data Results & Data ([facility]) Vital Signs (Past 12 Hours) Vital Signs Temp Pulse Pulse Resp BP BP Pulse Ox 12/20/21 02:35 79 16 125/75 96 12/20/21 02:28 36.5 C 89 18 96/73 L 94 Laboratory Results cbc stable. bmp stable. Mg 1.5. trop 0.61. TSH 4.738H. fT4 wnl. covid neg. cxr: unchanged from 10/27/21. 10/28/21 echo w/ normal ef 60-65. Mild MR. Borderline aortic root dilatation. 12/20/21 02:22 12/20/21 02:22 Cardiac Enzymes 12/20/21 12/20/21 Range/Units 02: 02:22 AST 14 (13-39) U/L Troponin I 0.61 H* (0-0.04) ng/ml B-Natriuretic Peptide 76 (0-100) pg/ml Coagulation 12/20/21 12/20/21 Range/Units 02:22 02:22 PT 9.8 (9.0-12.0) Seconds APTT 27.1 (21.0-31.0) Seconds B-Natriuretic Peptide 76 (0-100) pg/ml CBC 12/20/21 Range/Units 02:22 WBC 6.78 (4.8-10.8) K/uL RBC 4.31 L (4.7-6.1) M/uL Hgb 13.7 L (14.0-18.0) g/dL Hct 40.5 L (42-52) % Plt Count 191 (130-400) K/uL Neut # (Auto) 3.94 (1.4-6.5) K/uL Lymph # (Auto) 1.79 (1.2-3.4) K/uL Tripp # (Auto) 0.53 (0.11-0.59) K/uL Eos # (Auto) 0.50 (0-0.5) K/uL Baso # (Auto) 0.01 (0-0.2) K/uL Comprehensive Metabolic Panel 12/20/21 Range/Units 02:22 Sodium 137 (136-145) mmol/L Potassium 4.0 (3.5-5.1) mmol/L Chloride 108 H (98-107) mmol/L Carbon Dioxide 22 (21-32) mmol/L BUN 33 H (6-23) mg/dl Creatinine 2.02 H (0.6-1.4) mg/dl Glucose 111 H (70-99(Fasting)) mg/dl Calcium 9.1 (8.5-10.1) mg/dl AST 14 (13-39) U/L ALT 9 (7-52) U/L Alkaline Phosphatase 56 (34-104) U/L Total Protein 5.8 L (6.0-8.3) gm/dl Albumin 3.5 (3.4-5.0) gm/dl Intake and Output 12/19/21 12/19/21 12/20/21 14:59 22:59 06:59 Other: Weight 88.7 kg Weight Measurement Method Built in [facility] Patient Weight 12/20/21 06:59 Weight 88.7 kg Diagnostic Findings 12/20 cxr: IMPRESSION: Cardiomegaly with no acute cardiopulmonary abnormality. Code Status & VTE Plan Code Status full code VTE Prophylaxis Plan VTE Prophylaxis will be ordered: Yes Critical Care Time 40 minutes Supervising Physician Co-Signing Physician Notes Attending addendum: I have physically seen this patient, have supervised the medical residents activities, and agree with the H&P unless as otherwise noted. Assessment and Plan: NSTEMI/heart alert/emergent cardiac catheterization/successful PCI of circumflex lesion with single FERNANDO- Admit to ICU post cardiac catheterization Post cardiac cath orders per interventional cardiology Continue medications as ordered including Brilinta 90 mg p.o. twice daily, aspirin 81 mg daily CKD stage III- Follow serial BMP post cardiac catheterization Continue gentle IV fluid rehydration Remaining orders and notations as noted Resident Activity Tracking Resident Involvement: Resident Care Provided Care Provided: Adult Hospital Medicine
--- NOTE | 2021-12-20 04:23 | Cardiac Catheterization ---
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 Cardiac Status Clinical evaluation leading to the procedure CAD Presenation: STEMI Anginal Classification: CCS IV Heart Failure: No Cardiogenic Shock within 24 Hours: No Cardiac Arrest within 24 Hours: No Imaging Studies Past 6 Months: Yes Stress Studies Past 6 Months: No Diagnostic Physicians Name: Israel Carrion MD Status: Elective Closure Device Percutaneous Entry Location: Radial Closure Device: Radial Band Recommendations: PCI without planned CABG PCI Indication: Immediate PCI for STEMI Lesion Segment Name: mid circumflex Culprit Artery: Yes Stenosis Prior to Rx (%): 100 Chronic Total Occlusion: No IVUS: No FFR: No Pre-Procedure STEVEN Flow: 0 Previously Treated Lesion: No Lesion Complexity: Non-High/Non-C Lesion Length (mm): 15 Thrombus Present: Yes Bifurcation Lesion: Yes Guidewire Across Lesion: Stenosis Post-Procedure (%): 0 Post-Procedure STEVEN Flow: 3 Devices(s) Deployed: Yes Yes Intraprocedure Events Significant Disection: No Perforation: No Cardiac Cath Procedure Full Procedure Date December 20, 2021 Pre-Procedure Diagnosis Pre-Procedure Diagnosis: STEMI AUC Score AUC Score: 9 Post-Procedure Diagnosis Post-Procedure Diagnosis: Severe CAD, Successful PCI and Normal Intracardiac Pressures Procedure(s) Performed Procedure(s) Performed: Coronary Angiography, Left Heart Cath and Drug Eluting Stent Gleason Gear Generator Israel Carrion MD Nurse(s) Bryan Estimated Blood Loss Estimated Blood Loss: 10 Medication(s) Medication(s): Fentanyl, Heparin, Lidocaine 1%, Nicardipine, Nitroglycerin and Versed Summary of Findings Indication: STEMI/Heart Alert Access: 6 Fr right radial artery Catheters: [place], EBU 3.5 guide Findings: LM -medium caliber, luminal irregularities LAD -medium caliber, 50-60 % ostial stenosis, mid segment 40% disease, distal vessel without significant disease and wraps around apex. Circumflex -codominant, large caliber, acute 100% mid occlusion at takeoff of OM 2. Large OM1 without significant disease. RCA -codominant, medium caliber, mid segment calcified with diffuse 20% disease, distal 40-50% stenosis just before RPDA. Medium RPDA without significant disease LVEDP -11 -- PCI -- Antithrombotic therapy: Heparin, ticagrelor Procedure: Left main cannulated with EBU 3.5 guide Department Head 50 wire passed across lesion into distal OM 2 Mid circumflex lesion predilated with 2.5 compliant balloon Prowater wire placed into distal AV groove circumflex across stenosis Distal circumflex redilated with 2.5 balloon across bifurcation Dilated lesion stented with 2.5 x 18 mm Frankie drug-eluting stent from circumflex into OM 2 Stent post-dilated with 3.0 noncompliant balloon IC vasodilators administered for spasm Post procedure STEVEN 3 flow, stent well expanded with minimal residual stenosis, no significant branch vessel compromise and no apparent complications. Arterial Closure: TR band Summary: 1. Inferolateral STEMI 2. 100% acute occlusion of codominant mid circumflex 3. Multivessel non-culprit coronary artery disease -50-60% ostial, 40% mid LAD 40-50% distal RCA 4. Normal intracardiac filling pressure 5. Successful PCI of acute latemid circumflex occlusion into OM 2 with single drug-eluting stent (2.5 x 18 mm Frankie; postdilated with 3.0 NC). Recommendations: Admit to ICU for continued monitoring Loaded with ticagrelor 180 mg in the ED, continue for at least 1 year Reported history of aspirin hypersensitivity with respiratory symptoms. Recommend retrial of low-dose aspirin the morning. If unable to tolerate ASA, okay with single antiplatelet P2Y12 inhibitor alone. Trend troponins until peak, Check Echo Uptitrate beta-sujata as BP allows Resume MERCEDES inhibitor if renal function stable Retry low-dose statin Consult cardiac Rehab Hemodynamics Rest Ao:: 113/69/88 Final Ao: 94/55/72 LV: 94/11 Recommendations Recommendations: PCI without planned CABG Specimens Specimens: None Radiation Exposure (mGy) 2678 Contrast (mls) 130 Fluids (cc crystalloids) Fluids (cc crystalloids): 350 Drains Drains: None Anesthesia Moderate 4967-1397 Procedural Complication(s) None Disposition ICU I attest to the content of the Intraoperative Record and any orders documented therein. Any exceptions are noted below. [employer]Dragon[employer] Card Cath Procedure Codes Cardiac Catheterization Procedure 1: Cardiovascular Cath Procedures: 59203 Coronaries and LHC (+/-LV) Moderate Sedation Procedure 1: Sedation/Anesthesia: 51623 Mod Sedation by the same physician;Init15 Min Child Age 5 & Up Procedure 2: Sedation/Anesthesia: 92977 Mod Sedation by the same physician; Ea [id number] Minutes Stenting Procedure 1: Cardiovascular Stent Procedures: 83774 Perc transluminal revascularization of acute sub/total occl, aMI PG Care Time/CCT Total # of Minutes Spent Total Time Spent with Patient: Total time spent is greater than 50% in coordination of care (as documented) at patient's floor/unit and/or counseling patient:
[2021-12-20] MEDS ORDERED: MELATONIN 3 MG TAB PO PRN (05:50)
--- NOTE | 2021-12-20 06:20 | Critical Care Consultation ---
Date of Consultation December 20, 2021 Assessment & Plan (1) Admitted to intensive care unit: Reason Critically Ill: 81-year-old male with acute STEMI status post PCI with FERNANDO x1 requiring close hemodynamic monitoring status post coronary events. NEURO - * CAM ICU: NEGATIVE CARDIAC/VASCULAR - * Acute inferolateral STEMI s/p PCI w/ FERNANDO x1 to the late-mid circumflex to OM 2: * AM Echo * Trend Trops * ASCVD Rx per typical. * Continue ongoing mgmt per cardiology. * Monitor on telemetry. RESPIRATORY - * COPD: * Patient w/ "asthma" s/s yesterday leading up to chest pain episode. * Monitor for s/s worsening respiratory status. * Question if patient's symptoms yesterday may have been more cardiac related. GI/NUTRITION - * AHA Diet RENAL/LYTES - * CKD IV: * Monitor renal fxn s/p contrast administration. * No significant electrolyte derangements. - * BPH * Strict I&Os. ENDO - * Hypothyroidism * [id number] home Rx. HEME - * Stable H&H ID - * No concerns for infectious contribution LINES/IV ACCESS - * PIVs x2 DVT PROPHYLAXIS - * Hold s/p Brilinta/Heparin loading doses. * SCDs I have personally spent 32 minutes of critical care time in the direct management of this patient. This is a life/limb threatening event. This includes time spent evaluating patient, direct bedside care, chart review, placing orders, interpretation of diagnostic studies, discussion with consultants, patient, and family members, as well as other required patient management activities. This time is exclusive of all separately billable procedures, and teaching time and separate from and in addition to any other critical care service time. Thank you for allowing us to participate in the care of this patient. Please refer to my attending physician's documentation for any further recommendations. (2) STEMI (ST elevation myocardial infarction): (3) S/P PTCA (percutaneous transluminal coronary angioplasty): (4) S/P drug eluting coronary stent placement: (5) Aortic root dilation: (6) CKD (chronic kidney disease) stage 4, GFR 15-29 ml/min: (7) Essential hypertension: Supervising Physician Co-Signing Physician Notes Patient seen and examined. EMR reviewed. Discussed with critical care JOSE. Agree with assessment plan as noted. Please refer to my addendum from today for additional details. History of Present Illness Attending Physician: Peter Anderson MD History of Present Illness Patient is an 81-year-old male with a significant past medical history of hypertension, CKD 3, ALEXSANDRA, COPD, hypothyroidism, AAA, BPH, ascending aortic aneurysm, PTSD, and hyperlipidemia who presented to the emergency department today with midsternal chest pain with radiation to the jaw and LEFT-sided shoulder. He reports that he was having issues with his "asthma" yesterday and has utilized a number of breathing treatments without relief of symptoms. Patient was awoken with crushing chest pain with radiation to his jaw at approximately 1230. He did attempt to utilize nebulizer treatment which did not provide relief. Patient contacted EMS. Upon their arrival, the patient received nitroglycerin spray x1 with modest relief of symptoms. Patient was noted to have inferior lateral ST SERGIO in route to the emergency department. Code heart alert was called. Patient was taken emergently to the catheterization suite where he underwent successful PCI of acute latemid circumflex occlusion into OM 2 with FERNANDO x1. Patient had complete resolve chest pain status post intervention. Upon evaluation in the ICU, the patient is awake, alert, and oriented. He reports feeling much better and without chest pain at this time. Patient specifically denies complaints of symptoms of headaches, dizziness, lightheadedness, chest pain, palpitations, shortness of breath, further pain, nausea, vomiting, or abdominal discomfort. Allergies Allergy/AdvReac Type Severity Reaction Status Date / Time aspirin Allergy Severe hives and Verified 12/20/21 03:01 mouth/throat swelling, hyperventilation ketorolac Allergy Unknown avoids Verified 12/20/21 03:01 secondary to aspirin component [id number] Reductase AdvReac Intermediate severe Verified 12/20/21 03:01 Inhibitor muscle [Pmmwunp-Gmv-Luy Reductase cramps Inhibitor] oxycodone AdvReac Mild MENTAL Verified 12/20/21 03:01 STATUS CHANGES Home Medications Medication Instructions Recorded Confirmed Type albuterol sulfate 90 mcg/actuation 2 puff INHALATION Q6H PRN 08/10/18 12/20/21 History aerosol inhaler allopurinol 100 mg tablet 100 mg PO QPM 08/10/18 12/20/21 History cyanocobalamin (vitamin B-12) 100 200 mcg PO QAM 08/10/18 12/20/21 History mcg tablet folic acid 1 mg tablet 1 mg PO QAM 08/10/18 12/20/21 History garlic 500 mg PO QPM 08/10/18 12/20/21 History thiamine HCl (vitamin B1) 100 mg 100 mg PO QAM 08/10/18 12/20/21 History tablet fexofenadine 180 mg tablet 180 mg PO QAM 12/02/18 12/20/21 History lisinopril 10 1 tab PO QAM 05/17/19 12/20/21 History mg-hydrochlorothiazide 12.5 mg tablet prazosin 5 mg capsule 5 mg PO QPM #30 cap 11/15/19 12/20/21 Rx venlafaxine 75 mg tablet,extended 225 mg PO QAM 04/06/20 12/20/21 History release 24 hr finasteride 5 mg tablet 5 mg PO DAILY #30 tab 07/24/20 12/20/21 Rx levothyroxine 25 mcg tablet 25 mcg PO DAILY #90 tab 08/11/21 12/20/21 Rx amlodipine 5 mg tablet (Norvasc) 5 mg PO QAM #30 tab 10/29/21 12/20/21 Rx fluticasone 500 mcg-salmeterol 50 1 inh INHALATION BID 12/20/21 12/20/21 History mcg/dose blistr powdr for inhalation fluticasone fur. 100 mcg-umeclid 1 inh INHALATION DAILY 12/20/21 12/20/21 History 62.5 mcg-vilant 25 mcg inhalat.powder melatonin 3 mg tablet 9 mg PO HS PRN 12/20/21 12/20/21 History metoprolol succinate 50 mg 25 mg PO DAILY 12/20/21 12/20/21 History tablet,extended release 24 hr montelukast 10 mg tablet 10 mg PO DAILY 12/20/21 12/20/21 History olopatadine 0.1 % eye drops 1 drp OPB DAILY 12/20/21 12/20/21 History omega-3 fatty acids 1,000 mg PO DAILY 12/20/21 12/20/21 History Patient History Medical History Alcohol dependence QUIT 2018 Anxiety and depression Arthritis Asthma using PRN inh multiple x daily at present. recent asthma attack 1 mo ago; completed steroid taper. Benign essential tremor HANDS BPH (benign prostatic hyperplasia) Carotid artery stenosis S/P RIGHT CEA (08/2018) Cervical facet joint syndrome Chronic back pain Chronic kidney disease, stage 3 COPD (chronic obstructive pulmonary disease) Degenerative disc disease Deviated nasal septum GERD (gastroesophageal reflux disease) CONTROLLED Hearing deficit History of colon cancer REMOVED COLON POLYP + (NO OTHER INTERVENTION NEEDED) Hx of gout Hyperlipidemia Hypertension Hypothyroidism Lumbar radiculopathy Osteoarthritis Positive colorectal cancer screening using Cologuard test Post traumatic stress disorder Scoliosis Seasonal allergies Sleep apnea NO DEVICE (COULD NOT TOLERATE) Temporomandibular joint dysfunction syndrome Surgical History History of cardiac cath - NO STENTS History of cataract surgery History of cervical spinal surgery C3-5 ACDF History of colonoscopy W/ POLYPECTOMY History of difficult intubation C3-5 ACDF= 08/23/17= Grade view 2, Glidescope#4, ETT 8.0 (Head/neck neutral for intubation) at [facility] History of esophagogastroduodenoscopy (EGD) History of lumbar fusion L4-L5 History of right-sided carotid endarterectomy History of tonsillectomy History of tooth extraction History of total knee replacement LEFT History of total shoulder replacement RIGHT/LEFT Family History Sister Breast cancer Cancer Hypertension Brother Myocardial infarction COPD (chronic obstructive pulmonary disease) Hypertension Father Hypertension Mother Hypertension Other No family history of adverse response to anesthesia Denies family history of Ovarian cancer Prostate cancer Diabetes Colorectal cancer Social History Smoking Status: Former smoker Tobacco Type: Smokeless Tobacco (Dip or Chew) Age Started Using Tobacco: 14; Age Quit Using Tobacco: 36; packs per day: 2; Second Hand Exposure: No; Do You Dip or Chew Tobacco: No; Tobacco Cessation Education Requested by Patient: No Hx Alcohol Use: Yes Alcohol type: beer Hx Substance Use: No Preferred Language: Afghan Communication Ability: Effective Visual Impairment: No Limitations Hearing Ability: Use of Hearing Aid Rubber Flap Cutter Required: No Beliefs That Will Affect Care: None marital status: / Current Living Situation: Family current occupational status: retired 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 All else were negative. Physical Exam Physical Exam: VITAL SIGNS - Vital signs and nursing notes were reviewed. GENERAL - 81-year-old male appearing his stated age who is in no acute distress. Communicates well with provider and answers questions appropriately. HEAD - NC/AT. EYES - PERRL with EOMI bilaterally. Sclera anicteric. EARS - No deformities of external structures noted on gross examination bilatera lly. NOSE - Midline and without cyanosis. No epistaxis or purulent drainage noted. MOUTH/OROPHARYNX - Without perioral cyanosis. Buccal mucosa pink and moist. NECK - Neck with FROM. Supple to palpation. LUNGS - Chest wall symmetric without accessory muscle use, intercostals retractions, or central cyanosis. Normal vesicular breath sounds CTA B/L. No wheezes, rales, or rhonchi appreciated. CARDIAC - RRR with S1/S2. No murmur, rubs, or gallops appreciated. No reproducible tenderness to palpation appreciated over the anterior chest wall. ABDOMEN - Abdominal contour flat without pulsations or visible masses. BS normoactive all four quadrants. No tenderness, palpable masses, hepatosplenomegaly, or ascites noted. EXTREMITIES - No clubbing or peripheral cyanosis. No pretibial edema present. +3/5 radial and dorsalis pedis pulses palpated throughout. +5/5 strength noted in UE/LE bilaterally. NEUROLOGIC - Cranial nerves II through XII grossly intact. PSYCH - A&Ox3 and cooperates fully with examiner. Pt is very pleasant and interacts well with examiner. Results & Data Results & Data ([facility]) Vital Signs (Past 12 Hours) Vital Signs Temp Pulse Pulse Resp BP BP Pulse Ox 12/20/21 02:35 79 16 125/75 96 12/20/21 02:28 36.5 C 89 18 96/73 L 94 Coding Level of Care Code Critical Care 1st 30-74 mins Diagnoses Admitted to intensive care unit Z78.9 STEMI (ST elevation myocardial infarction) I21.3 S/P PTCA (percutaneous transluminal coronary angioplasty) Z98.61 S/P drug eluting coronary stent placement Z95.5 Aortic root dilation I77.810 CKD (chronic kidney disease) stage 4, GFR 15-29 ml/min N18.4 Essential hypertension I10 Time Spent (min) 32
[2021-12-20 06:42] LABS: Basophils # (auto) 0.01 K/uL (0-0.2); Basophils % (auto) 0.2 %; Eosinophils # (auto) 0.39 K/uL (0-0.5); Eosinophils % (auto) 5.9 %; Hematocrit (blood only) 38.9 % (42-52); Hemoglobin 12.7 g/dL (14.0-18.0); Immature Granulocytes # (auto) 0.02 K/uL (0.00-0.02); Immature Granulocytes % (auto) 0.3 %; Lymphocytes # (auto) 1.12 K/uL (1.2-3.4); Mean Corpuscular Hemoglobin 30.9 pg (25-34); Mean Corpuscular Hgb Conc 32.6 g/dL (32-36); Mean Corpuscular Volume 94.6 fL (80-100); Mean Platelet Volume 10.1 fL (7.4-10.4); Monocytes # (auto) 0.48 K/uL (0.11-0.59); Monocytes % (auto) 7.3 %; Neutrophils # (auto) 4.58 K/uL (1.4-6.5); Neutrophils % (auto) 69.3 %; Platelet Count 180 K/uL (130-400); RDW Coefficient of Variation 13.9 % (11.5-14.5); RDW Standard Deviation 47.7 fL (36.4-46.3); Red Blood Count 4.11 M/uL (4.7-6.1)
[2021-12-20 07:15] LABS: BUN Creatinine Ratio 15.8 (10-20); Calcium 8.9 mg/dl (8.5-10.1); Chol HDL Ratio 3.9 (0-5); Creatinine Clr Calc Pharmacy 30.4 ml/min; Est GFR (African American) 34.6 ml/min; Est GFR (Non-African American) 29.9 ml/min; Potassium 4.2 mmol/L (3.5-5.1)
[2021-12-20] MEDS: LEVOTHYROXINE SODIUM 25 MCG TABLET PO SCH (08:01)
--- NOTE | 2021-12-20 08:07 | Communication Note ---
Date of Service: December 20, 2021 Patient seen and examined. EMR reviewed. Patient is doing well clinically. He is pain-free. His heart rate and blood pressure are adequate. [facility] He is on a variety of inhalers. He takes Mucinex on a fairly regular basis. We do not have PFTs available to review. Continue supportive care at this point time. Increase activity. Remove TR band per cardiology protocol. Anticipate the patient should be eligible for downgrade or discharge within the next 24 hours and he can follow-up through the [facility] for his outpatient pulmonary needs. Coding Level of Care Code 51894 Prolonged Care (int'l)
--- NOTE | 2021-12-20 08:15 | Hospitalist Progress Note ---
Date of Service December 20, 2021 Assessment & Plan (1) STEMI (ST elevation myocardial infarction): Plan: 81 y/o M w/ PMHx of asthma, AAA, HTN, CKD3, tobacco use, BPH, hypothyroidism, COPD, ALEXSANDRA who presented w/ ACS and is s/p PCI w/ FERNANDO. Stable. substernal chest pain with radiation down L arm, to jaw and diaphoresis. - ecg w/ inferior lead ST elevations (slight, but meeting criteria) and reciprocal ST depressions. - Taken urgently for intervention - Inferolateral STEMI. 100% acute occlusion of codominant mid circumflex. Multivessel non-culprit coronary artery disease. 50-60% ostial, 40% mid LAD. 40- 50% distal RCA. Normal intracardiac filling pressure. Successful PCI of acute latemid circumflex occlusion into OM 2 with single drug-eluting stent (2.5 x 18 mm Frankie; postdilated with 3.0 NC). - cardiology recs: - Brillinta. Trial baby ASA. concern as reports hx of hypersensitivity w/ respiratory symptoms, single antiplatelet Plavix acceptable, will discuss with cardiology. - troponin with mild upward trend. - echo pending. (2) Hypertension: Plan: - continue home lisinopril/hctz, amlodipine, and metoprolol (uptitrate as able). stable (3) Chronic kidney disease, stage 3: Plan: - stable (Cr ~2.0), (4) Asthma: Plan: - continue home inhalers and Singulair (5) Lower urinary tract symptoms (LUTS): Plan: - continue home finasteride and prazosin (6) Ascending aortic aneurysm: Plan: - chronic, ascending thoracic aorta, last measured 4.0 cm in December 2020 (7) Hypothyroidism: Plan: - continue home levothyroxine 25mcg (8) Sleep apnea: Plan: - not on cpap at home due to intolerance. stable (9) Gout: Plan: - stable, continue home allopurinol Plan: code: full dispo: ICU for management post-cath Admission and Anticipated Discharge Date Admission Date: December 20, 2021 Subjective Patient was seen in intensive care unit after his coronary intervention. He is symptom-free at this time. His compression bends on his right wrist he has good distal sensation and capillary refill. He has no complaints. He is able to eat this morning. Review of Systems Review of Systems: no additional distress or fatigue no headache, no visual changes no speech or swallowing issues no chest pain, pressure or palpitations no shortness of breath, cough or wheezes no abdominal pain, nausea or vomiting, diarrhea or constipation no dysuria, hematuria or frequency no focal joint pain or swelling no back pain, CVA tenderness or radicular pain no bruising, no focal signs of weakness or numbness or altered sensation no complaints of anxiety or depression.. Physical Exam Physical Exam: The patient appeared well nourished and normally developed. Vital signs as documented. Head exam is normocephalic atraumatic Neck is without JVD, thyromegaly, or carotid bruits. Lungs are clear to auscultation, no focal loss of breath sounds Cardiac exam, Rhythm is regular.. No murmurs, rubs or gallops. Abdominal exam reveals normal bowel sounds, soft non tender, no masses Extremities are nonedematous and both pedal pulses are present Neurologic exam is alert and oriented, no focal loss of strength or sensation Skin is without bruises or rashes, T band in place on right wrist Psychologically is without concerns for anxiety or depression.. Results & Data Results & Data ([facility]) Vital Signs (Past 12 Hours) Vital Signs Temp Pulse Pulse Resp BP BP Pulse Ox 12/20/21 06:15 68 23 98 12/20/21 06:14 98.4 F 71 18 122/67 95 12/20/21 06:00 62 13 122/67 100 12/20/21 05:45 61 16 129/73 100 12/20/21 05:30 58 L 12 130/72 100 12/20/21 05:15 68 14 119/70 98 12/20/21 05:01 74 18 111/75 99 12/20/21 05:00 63 13 87 L 12/20/21 04:45 65 20 126/74 100 12/20/21 04:30 58 L 16 116/64 98 12/20/21 04:15 68 21 104/72 97 12/20/21 04:14 72 29 H 106/66 100 12/20/21 04:11 98.4 F 75 61 23 98 12/20/21 03:15 64 14 12/20/21 03:13 51 L 9 L 12/20/21 02:39 80 19 95 12/20/21 02:35 79 16 125/75 96 12/20/21 02:28 97.7 F 89 18 96/73 L 94 PG Care Time/CCT Total # of Minutes Spent Total Time Spent with Patient: Total time spent is greater than 50% in coordination of care (as documented) at patient's floor/unit and/or counseling patient: Coding Level of Care Code 70473 Subseq Hosp Care Lvl 2 Diagnoses STEMI (ST elevation myocardial infarction) I21.3 Hypertension I10 Chronic kidney disease, stage 3 N18.3 Asthma J45.909 Lower urinary tract symptoms (LUTS) R39.9 Ascending aortic aneurysm I71.2 Hypothyroidism E03.9 Sleep apnea G47.30 Gout M10.9
[2021-12-20] MEDS ORDERED: FLUTICASONE/SALMETEROL (ADVAIR) 500/50 INH 14 PUFF INH SCH (09:00)
[2021-12-20] MEDS ORDERED: [UNRECOGNIZED DRUG - MIXTURE] INH SCH (09:00)
[2021-12-20] MEDS ORDERED: NON-FORMULARY MEDICATION (Omega-3 Fatty Acids Capsule) PO SCH (09:00)
[2021-12-20] MEDS ORDERED: METOPROLOL SUCC 25MG EXT REL TAB PO SCH (09:00)
[2021-12-20] MEDS: MONTELUKAST SODIUM 10 MG TABLET PO SCH (10:01)
[2021-12-20] MEDS: FOLIC ACID 1 MG TAB PO SCH (10:01)
[2021-12-20] MEDS: THIAMINE HCL 100 MG TAB PO SCH (10:01)
[2021-12-20] MEDS: FINASTERIDE 5 MG TAB PO SCH (10:01)
[2021-12-20] MEDS: CYANOCOBALAMIN (B-12) 100 MCG TABLET PO SCH (10:02)
[2021-12-20] MEDS: FEXOFENADINE HCL 180 MG TAB PO SCH (10:02)
[2021-12-20] MEDS: VENLAFAXINE HCL XR 75 MG CAPXR PO SCH (10:02)
[2021-12-20] MEDS: amLODIPine BESYLATE 5 MG TAB PO SCH (10:02)
[2021-12-20] MEDS: LISINOPRIL/HCTZ 10/12.5MG TAB PO SCH (10:02)
[2021-12-20] MEDS: PRAVASTATIN SOD 10 MG TAB PO SCH (10:03)
[2021-12-20] MEDS: UMECLIDINIUM/VILANTEROL 62.5/25MCG 7 PUFFS/INHALER INH SCH (10:03)
[2021-12-20] MEDS: FLUTICASONE FUROATE 100MCG 14 PUFFS/INHALER INH SCH (10:03)
[2021-12-20] MEDS: METOPROLOL TARTRATE 25 MG TAB PO SCH ×2 (10:33→21:29)
--- NOTE | 2021-12-20 14:23 | Cardiology Progress Note ---
Date of Service December 20, 2021 Assessment & Plan (1) STEMI (ST elevation myocardial infarction): Plan: Post primary PCI with FERNANDO to mid circumflex and OM 2 2. Moderate nonculprit coronary artery [id number]% ostial LAD, 40% mid LAD, 50% distal RCA. 3. Preserved LVEFno wall motion abnormalities 4. Stage III chronic kidney disease 5. Aspirin hypersensitivity reaction 6. Lipidemia/statin intolerance 7. Mild mitral regurgitation 8. Borderline aortic root dilation 9. PAD post CEA 2017 10. Asthma/COPD/ALEXSANDRA Patient doing well from a cardiac standpoint. Hemodynamically and electrically stable. Remains chest pain-free. LV function preserved on echocardiogram. No apparent access site complications. Continue ticagrelor Trial of low-dose aspirin today while in hospital Increase metoprolol to 25 mg twice daily Continue home lisinopril Trial of low-dose pravastatin From a cardiac standpoint okay with transition to telemetry. Likely okay for discharge tomorrow. Admission and Anticipated Discharge Date Admission Date: December 20, 2021 Subjective Feeling well today. Denies any recurrent chest pain. Breathing comfortably. TR band removed. No significant pain at radial artery access site. Telemetry reviewedno events Physical Exam Physical Exam: General: Comfortable HEENT: Sclerae anicteric Lungs: Clear to auscultation bilaterally Cardiac: Regular rate and rhythm Vascular: Right radial artery access site with no ecchymosis, hematoma. Distal pulse and sensation intact. Abdomen: Soft, nontender Extremities: Well perfused, no peripheral edema Neuro: Nonfocal Psych: Alert orient x3, normal affect and mood Results & Data ([facility]) Vital Signs (Past 12 Hours) Vital Signs Temp Pulse Pulse Resp BP BP Pulse Ox 12/20/21 11:15 66 16 141/83 H 98 12/20/21 11:00 63 18 146/78 H 98 12/20/21 10:46 73 23 140/72 98 12/20/21 10:45 71 14 92 12/20/21 10:30 69 14 146/75 H 98 12/20/21 10:16 63 13 129/70 98 12/20/21 10:15 65 23 95 12/20/21 10:01 64 16 130/73 98 12/20/21 10:00 67 13 93 12/20/21 09:45 72 24 123/70 98 12/20/21 09:30 67 19 128/82 97 12/20/21 09:15 66 18 129/90 95 12/20/21 09:00 65 22 131/77 98 12/20/21 08:45 75 16 122/70 96 12/20/21 08:31 71 19 133/70 97 12/20/21 08:30 69 14 88 L 12/20/21 08:15 71 21 120/70 95 12/20/21 08:00 73 21 113/66 97 12/20/21 07:45 71 12 116/71 98 12/20/21 07:31 84 17 128/79 98 12/20/21 07:30 76 19 96 12/20/21 07:16 72 19 114/95 96 12/20/21 07:15 79 16 91 12/20/21 07:00 64 17 131/75 97 12/20/21 06:45 63 17 90 12/20/21 06:31 67 16 119/68 99 12/20/21 06:30 65 16 90 12/20/21 06:15 68 23 98 12/20/21 06:14 98.4 F 71 18 122/67 95 12/20/21 06:00 62 13 122/67 100 12/20/21 05:45 61 16 129/73 100 12/20/21 05:30 58 L 12 130/72 100 12/20/21 05:15 68 14 119/70 98 12/20/21 05:01 74 18 111/75 99 12/20/21 05:00 63 13 87 L 12/20/21 04:45 65 20 126/74 100 12/20/21 04:30 58 L 16 116/64 98 12/20/21 04:15 68 21 104/72 97 12/20/21 04:14 72 29 H 106/66 100 12/20/21 04:11 98.4 F 75 61 23 98 12/20/21 03:15 64 14 12/20/21 03:13 51 L 9 L 12/20/21 02:39 80 19 95 12/20/21 02:35 79 16 125/75 96 12/20/21 02:28 97.7 F 89 18 96/73 L 94 PG Care Time/CCT Total # of Minutes Spent Total Time Spent with Patient: Total time spent is greater than 50% in coordination of care (as documented) at patient's floor/unit and/or counseling patient: Coding Level of Care Code None Diagnoses STEMI (ST elevation myocardial infarction) I21.3
[2021-12-20] MEDS ORDERED: diphenhydrAMINE 50 MG/ML VIAL IV PRN (14:29)
[2021-12-20] MEDS: ASPIRIN 81 MG CHEW PO SCH (16:28)
[2021-12-20] MEDS ORDERED: NON-FORMULARY MEDICATION (Garlic Tablet) PO SCH (21:00)
[2021-12-20] MEDS ORDERED: PRAZOSIN HCL 1 MG CAP PO SCH (21:00)
[2021-12-20] MEDS ORDERED: allopurinoL 100 MG TAB PO SCH (21:00)
[2021-12-20] MEDS: TICAGRELOR 90 MG TAB PO SCH (21:29)
--- NOTE | 2021-12-20 21:36 | Billing Data ---
Date of Service December 20, 2021 Coding Level of Care Code Critical Care 1st - mins
[2021-12-21 05:03] LABS: Basophils # (auto) 0.01 K/uL (0-0.2); Basophils % (auto) 0.2 %; Eosinophils # (auto) 0.52 K/uL (0-0.5); Eosinophils % (auto) 8.5 %; Immature Granulocytes # (auto) 0.01 K/uL (0.00-0.02); Immature Granulocytes % (auto) 0.2 %; Lymphocytes # (auto) 1.28 K/uL (1.2-3.4); Mean Corpuscular Hemoglobin 31.3 pg (25-34); Mean Corpuscular Hgb Conc 33.3 g/dL (32-36); Mean Platelet Volume 9.8 fL (7.4-10.4); Monocytes # (auto) 0.63 K/uL (0.11-0.59); Monocytes % (auto) 10.3 %; Neutrophils # (auto) 3.65 K/uL (1.4-6.5); Neutrophils % (auto) 59.8 %; Platelet Count 187 K/uL (130-400); RDW Coefficient of Variation 13.6 % (11.5-14.5); RDW Standard Deviation 46.8 fL (36.4-46.3); Red Blood Count 4.15 M/uL (4.7-6.1)
[2021-12-21 05:36] LABS: BUN Creatinine Ratio 17.5 (10-20); Creatinine Clr Calc Pharmacy 32.6 ml/min; Est GFR (African American) 37.7 ml/min; Est GFR (Non-African American) 32.5 ml/min; Magnesium 1.7 mg/dl (1.7-2.4); Phosphorus 2.9 mg/dl (2.5-4.9); Potassium 4.2 mmol/L (3.5-5.1)
[2021-12-21 05:41] LABS: Troponin I 5.11 ng/ml (0-0.04)
[2021-12-21] MEDS: LEVOTHYROXINE SODIUM 25 MCG TABLET PO SCH (07:36)
--- NOTE | 2021-12-21 07:58 | Critical Care Progress Note ---
Date of Service December 21, 2021 Assessment & Plan (1) Admitted to intensive care unit: (2) S/P drug eluting coronary stent placement: (3) STEMI (ST elevation myocardial infarction): (4) CKD (chronic kidney disease) stage 4, GFR 15-29 ml/min: (5) Wheezing: Plan: Impression: 81-year-old male presenting with acute ST elevation myocardial infarction status post PCI with drug-eluting stent x1. He is pain-free and hemodynamically stable. Recommendations: 1. ST elevation myocardial infarction status post angioplasty with drug-eluting stent placement. Troponin has peaked and is downtrending. He is tolerating medications and is currently on Norvasc aspirin lisinopril hydrochlorothiazide and metoprolol. Titration per cardiology. 2. Chronic kidney disease: Creatinine is decreasing. Continue to trend. Electrolytes and acid-base status appears stable. 3. COPD: Continue Anoro and Flovent. He is followed at the [facility] with a insole department worker and should follow-up with them at discharge. Patient appears to be doing well clinically. He stable to transfer out of the ICU or potentially disposition home. Ultimate disposition per cardiology and primary attending service. His critical care issues have resolved. Critical care will sign off. Please call if we can be of additional assistance Admission and Anticipated Discharge Date Admission Date: December 20, 2021 Subjective Patient seen and examined. EMR reviewed. He is without complaint this morning. Denies chest pain palpitations lower extremity edema or shortness of breath or cough or sputum production. He is tolerating diet. He is ambulating to the restroom. He overall feels like he is doing well Review of Systems Review of Systems: All systems reviewed & are unremarkable except as noted in Subjective Physical Exam Constitutional: WD/WN, vitals as above Neck: trachea midline, no thyromegaly Respiratory: normal respiratory effort, lungs clear to auscultation Cardiovascular: RRR, no murmur, no edema Gastrointestinal (Abdomen): normal bowel sounds, soft, nontender, no hepatosplenomegaly Musculoskeletal: Extremities: extremities normal to inspection Skin: no rashes, warm and dry Neurologic: Nonfocal exam Lymphatic: no cervical lymphadenopathy Results & Data Results & Data ([facility]) Vital Signs (Past 12 Hours) Vital Signs Pulse Resp BP Pulse Ox 12/21/21 04:00 57 L 12 140/74 12/21/21 03:00 57 L 9 L 136/70 95 02/20/22 02:00 66 16 126/66 91 12/21/21 01:00 60 17 125/68 92 12/21/21 00:00 65 19 131/90 94 12/20/21 23:00 72 19 122/75 92 12/20/21 22:00 71 24 133/100 93 12/20/21 21:00 75 19 136/77 91 12/20/21 20:01 73 17 158/84 H 89 L 12/20/21 20:00 72 16 93 Critical Care Results & Data Vital Signs (Past 12 Hours) Vital Signs Pulse Resp BP Pulse Ox 12/21/21 04:00 57 L 12 140/74 12/21/21 03:00 57 L 9 L 136/70 95 12/21/21 02:00 66 16 126/66 91 12/21/21 01:00 60 17 125/68 92 12/21/21 00:00 65 19 131/90 94 12/20/21 23:00 72 19 122/75 92 12/20/21 22:00 71 24 133/100 93 12/20/21 21:00 75 19 136/77 91 12/20/21 20:01 73 17 158/84 H 89 L 12/20/21 20:00 72 16 93 Lab & Micro Results (Past 24 Hours) RBC 4.15 M/uL (4.7-6.1) L 12/21/21 WBC 6.10 K/uL (4.8-10.8) 12/21/21 Hgb 13.0 g/dL (14.0-18.0) L 12/21/21 Hct 39.0 % (42-52) L 12/21/21 MCV 94.0 fL (80-100) 12/21/21 MCH 31.3 pg (25-34) 12/21/21 MCHC 33.3 g/dL (32-36) 12/21/21 RDW Standard Deviation 46.8 fL (36.4-46.3) H 12/21/21 RDW Coefficient of Variation 13.6 % (11.5-14.5) 12/21/21 Plt Count 187 K/uL (130-400) 12/21/21 MPV 9.8 fL (7.4-10.4) 12/21/21 Neutrophils (%) (Auto) 59.8 % 12/21/21 Lymphocytes (%) (Auto) 21.0 % 12/21/21 Monocytes # (Auto) 0.63 K/uL (0.11-0.59) H 12/21/21 Eosinophils # (Auto) 0.52 K/uL (0-0.5) H 12/21/21 Immature Granulocyte % (Auto) 0.2 % 12/21/21 Neutrophils # (Auto) 3.65 K/uL (1.4-6.5) 12/21/21 Lymphocytes # (Auto) 1.28 K/uL (1.2-3.4) 12/21/21 Monocytes # (Auto) 0.63 K/uL (0.11-0.59) H 12/21/21 Eosinophils # (Auto) 0.52 K/uL (0-0.5) H 12/21/21 Basophils # (Auto) 0.01 K/uL (0-0.2) 12/21/21 Immature Granulocyte # (Auto) 0.01 K/uL (0.00-0.02) 12/21/21 Na 139 mmol/L (136-145) 12/21/21 K 4.2 mmol/L (3.5-5.1) 12/21/21 Cl 109 mmol/L (98-107) H 12/21/21 CO2 26 mmol/L (21-32) 12/21/21 Anion Gap 4 (3-11) 12/21/21 BUN 33 mg/dl (6-23) H 12/21/21 Creatinine 1.89 mg/dl (0.6-1.4) H 12/21/21 Estimated GFR ( Amer) 37.7 ml/min 12/21/21 Estimated GFR (Non-Af Amer) 32.5 ml/min 12/21/21 BUN/Creatinine Ratio 17.5 (10-20) 12/21/21 Glu 86 mg/dl (70-99(Fasting)) 12/21/21 Ca 9.0 mg/dl (8.5-10.1) 12/21/21 Phosphorus Level 2.9 mg/dl (2.5-4.9) 12/21/21 Mg 1.7 mg/dl (1.7-2.4) 12/21/21 04:43 12/21/21 Calcium Level 9.0 mg/dl (8.5-10.1) 12/21/21 04:43 12/21/21 I & O Totals 24 Hours 12/20/21 12/21/21 12/22/21 06:59 06:59 06:59 Intake Total 60 / 60 1930 / 193 Output Total 1525 / 1525 Balance 60 / 60 405 / 405 Cumulative 12/20/21 02:10 thru 12/21/21 04:00 Intake Total 1989 Output Total 1525 Balance 465 RT Ventilator Mngmt (Last Documented) Ventilator Ordered Settings Respiratory Rate 12 12/21/21 04:00 Ventilator - PT Measurements Respiratory Rate 12 Coding Level of Care Code 51927 Subseq Hosp Care Lvl 2 Diagnoses Admitted to intensive care unit Z78.9 S/P drug eluting coronary stent placement Z95.5 STEMI (ST elevation myocardial infarction) I21.3 CKD (chronic kidney disease) stage 4, GFR 15-29 ml/min N18.4 Wheezing R06.2
[2021-12-21] MEDS: amLODIPine BESYLATE 5 MG TAB PO SCH (08:01)
[2021-12-21] MEDS: FINASTERIDE 5 MG TAB PO SCH (08:02)
[2021-12-21] MEDS: FEXOFENADINE HCL 180 MG TAB PO SCH (08:02)
[2021-12-21] MEDS: FOLIC ACID 1 MG TAB PO SCH (08:03)
[2021-12-21] MEDS: FLUTICASONE FUROATE 100MCG 14 PUFFS/INHALER INH SCH (08:03)
[2021-12-21] MEDS: METOPROLOL TARTRATE 25 MG TAB PO SCH (08:04)
[2021-12-21] MEDS: LISINOPRIL/HCTZ 10/12.5MG TAB PO SCH (08:04)
[2021-12-21] MEDS: PRAVASTATIN SOD 10 MG TAB PO SCH (08:04)
[2021-12-21] MEDS: UMECLIDINIUM/VILANTEROL 62.5/25MCG 7 PUFFS/INHALER INH SCH (08:05)
[2021-12-21] MEDS: TICAGRELOR 90 MG TAB PO SCH (08:05)
[2021-12-21] MEDS: THIAMINE HCL 100 MG TAB PO SCH (08:05)
[2021-12-21] MEDS: VENLAFAXINE HCL XR 75 MG CAPXR PO SCH (08:05)
[2021-12-21] MEDS: ASPIRIN 81 MG CHEW PO SCH (08:06)
[2021-12-21] MEDS: MONTELUKAST SODIUM 10 MG TABLET PO SCH (09:29)
[2021-12-21] MEDS: CYANOCOBALAMIN (B-12) 100 MCG TABLET PO SCH (09:29)
--- NOTE | 2021-12-21 09:44 | Communication Note ---
Date of Service: December 21, 2021 By CMS guidelines, a determination that the admission or continued stay is not medically necessary has been made by a member of the UR committee and a naty black for this hospital stay, therefore a Code 44 will be completed and the Inpatient admission will be changed to outpatient. Zaki Macias MD member, utilization review committee
--- NOTE | 2021-12-21 11:00 | Electrocardiogram Report ---
Test Reason : Blood Pressure : / mmHG Vent. Rate : 062 BPM Atrial Rate : 062 BPM P-R Int : 150 ms QRS Dur : 088 ms QT Int : 412 ms P-R-T Axes : 039 061 046 degrees QTc Int : 418 ms Poor data quality, interpretation may be adversely affected Normal sinus rhythm Nonspecific T wave abnormality Abnormal ECG When compared with ECG of 20-DEC-2021 02:22, The previous acute ST elevation TX has resolved Nonspecific T wave abnormality now evident in Inferior leads Confirmed by Gentry Wagner ([id number]) on 12/21/2021 10:59:59 AM Referred By: REFERRED SELF Confirmed By:Gentry Wagner
--- NOTE | 2021-12-21 11:19 | Cardiology Progress Note ---
Date of Service December 21, 2021 Assessment & Plan (1) STEMI (ST elevation myocardial infarction): Plan: Post primary PCI with FERNANDO to mid circumflex and OM 2 2. Moderate nonculprit coronary artery [id number]% ostial LAD, 40% mid LAD, 50% distal RCA. 3. Preserved LVEFno wall motion abnormalities 4. Stage III chronic kidney disease 5. Aspirin hypersensitivity reaction 6. Lipidemia/statin intolerance 7. Mild mitral regurgitation 8. Borderline aortic root dilation 9. PAD post CEA 2017 10. Asthma/COPD/ALEXSANDRA Stable from a cardiac standpoint. Troponin peaked. No recurrent chest pain. No access site complications. Minimal ectopy on telemetry. Ok for discharge today. Follow-up with me in 1-2 weeks. Refused trial of aspirin. Home on: -- Ticagrelor 90 mg BID (given samples for 4 weeks). Plan to continue for 1 year (pl[facility] [place] [facility] [facility] Probably transition to clopidogrel after 1 year. -- Continue prior Toprol XL, lisinopril/HCTZ and amlodipine. -- New pravastatin 10mg daily. Admission and Anticipated Discharge Date Admission Date: December 20, 2021 Subjective Feeling well. No chest pain. No other new complaints. Telemetry reviewed -- brief NSVT 6 beats Review of Systems Review of Systems: All systems reviewed & are unremarkable except as noted in HPI & below Physical Exam Physical Exam: General: Comfortable HEENT: Sclerae anicteric Lungs: Clear to auscultation bilaterally Cardiac: Regular rate and rhythm Vascular: Right radial artery access site with ecchymosis. No hematoma. Distal pulse and sensation intact. Abdomen: Soft, nontender Extremities: Well perfused, no peripheral edema Neuro: Nonfocal Psych: Alert orient x3, normal affect and mood Results & Data ([facility]) Vital Signs (Past 12 Hours) Vital Signs Pulse Resp BP Pulse Ox 12/21/21 09:00 66 16 120/73 91 12/21/21 08:00 65 17 128/69 92 12/21/21 07:00 67 20 12/21/21 06:00 60 10 L 131/72 12/21/21 05:00 61 15 12/21/21 04:00 57 L 12 140/74 12/21/21 03:00 57 L 9 L 136/70 95 12/21/21 02:00 66 16 126/66 91 12/21/21 01:00 60 17 125/68 92 12/21/21 00:00 65 19 131/90 94 PG Care Time/CCT Total # of Minutes Spent Total Time Spent with Patient: Total time spent is greater than 50% in coordination of care (as documented) at patient's floor/unit and/or counseling patient: Coding Level of Care Code 26358 Subseq Hosp Care Lvl 3 Diagnoses STEMI (ST elevation myocardial infarction) I21.3
--- NOTE | 2021-12-21 11:31 | Electrocardiogram Report ---
Test Reason : Blood Pressure : / mmHG Vent. 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
--- NOTE | 2021-12-21 14:53 | Discharge Summary ---
Date of Service December 21, 2021 Admission HPI Per Admitting Provider 81 y/o M w/ PMHx of asthma, AAA, HTN, CKD3, tobacco use, BPH, hypothyroidism, COPD, ALEXSANDRA, gout who presented w/ substernal chest pain that woke him up from sleep shortly after midnight; he subsequently presented to the ED. He endorsed radiation down L arm and L posterior shoulder. Quality described as alternating between pressure and sharp. Constant. No allev/exac factors. + jaw pain. No diaphoresis, nausea. Had dyspnea day prior as well. Heart alert was called en- route. Some slight improvement w/ EMS nitro. Current pain 2/10, much improved. No current dyspnea. Prior to cath, was 10/10 chest pain. Couple days prior, had pain in his R foot, thought was gout flare. Last cath in w/o CAD per patient, performed for abnormal stress test. Quit tobacco in , 20+ years ppd. Denies family hx SC/stroke. Denies prior hx of chest pain. ED course: Heart alert called en-route. Patient went to labeling associate for PCI unpon arrival and after initial ED exam. Principal Diagnosis stemi, s/p FERNANDO to Circumflex and ostium obtuse marginal 2 Discharge Exam The patient appeared well nourished and normally developed. Vital signs as documented. Head exam is normocephalic atraumatic Neck is without JVD, thyromegaly, or carotid bruits. Lungs are clear to auscultation, no focal loss of breath sounds Cardiac exam, Rhythm is regular.. No murmurs, rubs or gallops. Abdominal exam reveals normal bowel sounds, soft non tender, no masses Extremities are nonedematous and both pedal pulses are present Neurologic exam is alert and oriented, no focal loss of strength or sensation Skin is without bruises or rashes Psychologically is without concerns for anxiety or depression.. Discharge Data Allergies Allergy/AdvReac Type Severity Reaction Status Date / Time aspirin Allergy Severe hives and Verified 12/20/21 03:01 mouth/throat swelling, hyperventilation ketorolac Allergy Unknown avoids Verified 12/20/21 03:01 secondary to aspirin component Iyyumyu-EAC-DjN Reductase AdvReac Intermediate severe Verified 12/20/21 03:01 Inhibitor muscle [Effpzil-Ire-Cpv Reductase cramps Inhibitor] oxycodone AdvReac Mild MENTAL Verified 12/20/21 03:01 STATUS CHANGES Consultations 12/20/21 02:42 ED Decision to Admit Stat 12/20/21 04:02 Consult Cardiac Rehabilitation Routine Consult Director Of Student Life Routine 12/20/21 05:40 Consult Director Of Student Life Routine Procedures Performed Operation Date: 12/20/21 03:00 Actual Procedures s Cineradiography w/Routine Exam - Ronaldo Bennett MD p Aspiration/PCI w/FERNANDO for Stemi - Ronaldo Bennett MD s Cath, Left with Cors and Vent - Ronaldo Bennett MD Ordered Studies 12/20/21 02:35 CL Cath Imgs for PACS use only Stat Hospital Course (1) STEMI (ST elevation myocardial infarction): 81 y/o M w/ PMHx of asthma, AAA, HTN, CKD3, tobacco use, BPH, hypothyroidism, COPD, ALEXSANDRA who presented w/ ACS and is s/p PCI w/ FERNANDO. Stable. substernal chest pain that woke him up from sleep shortly after midnight. He endorsed radiation down L arm and diaphoresis. Heart alert was called en-route. - ecg w/ inferior lead ST elevations (slight, but meeting criteria) and reciprocal ST depressions. - presented w/ classic anginal symptoms, new onset. in association w/ ecg changes, heart alert was called. - per cath report: - Inferolateral STEMI. 100% acute occlusion of codominant mid circumflex. Multivessel non-culprit coronary artery disease. 50-60% ostial, 40% mid LAD. 40- 50% distal RCA. Normal intracardiac filling pressure. Successful PCI of acute latemid circumflex occlusion into OM 2 single drug-eluting stent (2.5 x 18 mm Frankie; postdilated with 3.0 NC). - cardiology recs: - Brillinta. single antiplatelet Plavix acceptable. hx of hypersensitivity to aspirin w/ respiratory symptoms) Echocardiogram shows preserved ejection fraction. Left ventricular hypertrophy no regional wall motion abnormalities (2) Hypertension: - continue home lisinopril/hctz, amlodipine, and metoprolol (3) Chronic kidney disease, stage 3: - stable (Cr ~2.0), follow bmp (4) Asthma: - continue home inhalers and Singulair (5) Lower urinary tract symptoms (LUTS): - continue home finasteride and prazosin (6) Ascending aortic aneurysm: - chronic (7) Hypothyroidism: - continue home levothyroxine 25mcg (8) Sleep apnea: - not on cpap at home due to intolerance. stable (9) Gout: - stable, continue home allopurinol Total Time Total Time Spent Total Time Spent (In Minutes): 30 including coordination of Brilinta samples which were delivered by Dr. Bennett and greatly appreciated Discharge Plan Discharge Items Patient Disposition: Home - Self-Care Reason For Visit: STEMI Discharge Diagnosis: acute heart attack, stent placed in coronary artery Activity: Per Instructions section Activity Comment: no intentional exerecise until released by Dr Bennett Non-emergency contact: Primary Care Provider and Candlemaker Call non-emergency contact if: you have any medication questions, your symptoms worsen and your pain is concerning for you Follow-up/Referrals: Israel Patel MD [Primary Care Provider] - Ronaldo Bennett MD [Physician] - Diet: Heart Healthy Addtl Attending Provider Instructions: Dr bennett did provide you with samples of Brilinta to take 90 mg twice a day, tell the pharmacist that you do not need that Rx at this time but keep it on file for future ACTIVITY RECOMMENDATIONS: Excess manipulation of the wrist should be avoided for the next 24-48 hours. * No lifting over 2 pounds (approximately a 1/2 gallon of milk) with the utilized arm for 24 hours. * No strenuous activity such as bowling or tennis for 3 days. * Keep the site of the procedure covered with a bandage for 24 hours. *You may shower the day after the procedure. Do not take a tub bath or submerge the puncture site in water for the next 3 days. *Do not operate any motorized equipment for 3 days. SPECIAL CARE INSTRUCTIONS: The site may be slightly bruised and sore following your procedure. Should any of the following occur, contact the Dr. who performed your procedure. 1. Redness/inflammation, swelling, chills, or fever, or colored drainage at procedure site within 3-7 days after your procedure. 2. Coldness, discoloration, ongoing numbness, severe pain, or swelling. Expect mild tingling of hand and tenderness at the puncture site for up to three days. If this persists beyond three days, or other symptoms develop, notify the DrXimena who performed your procedure. BLEEDING: If the procedure site on your wrist begins to bleed, do not panic 1. Place 1 or 2 fingers firmly just slightly above the insertion site to stop the bleeding. You may be able to feel your pulse as you hold pressure. 2. Lift your finger after 5 minutes to see if the bleeding has stopped. 3. Once the bleeding has stopped, gently wipe the wrist area clean with a bandage. * If the bleeding from your wrist does not stop after 10 minutes, or if there is a large amount of bleeding or spurting, call 911 (do not drive yourself to the hospital). SKIN IRRITATION: * You may experience some redness and/or swelling in the area where radiation was administered. If any skin irritation occurs, please contact your family physician. FOLLOW UP VISIT: Keep any scheduled doctor appointments. Pending Studies at Discharge: No Stand-Alone Forms: My [facility], Smoking Cessation Medications and DC Order Prescriptions: New pravastatin 10 mg Tablet 10 mg PO QAM Qty: 30 RF: 2 nitroglycerin [Nitrostat] 0.4 mg Tablet, Sublingual 0.4 mg sublingual PRN PRN (Reason: chest pain) Qty: 1 RF: 3 Brilinta 90 mg Tablet 90 mg PO BID Qty: 60 RF: 2 Continued levothyroxine 25 mcg tablet 25 mcg PO DAILY Qty: 90 RF: 3 prazosin 5 mg capsule 5 mg PO QPM Qty: 30 RF: 2 finasteride 5 mg tablet 5 mg PO DAILY Qty: 30 RF: 11 lisinopril-hydrochlorothiazide 10-12.5 mg tablet 1 tab PO QAM RF: 0 cyanocobalamin (vitamin B-12) 100 mcg Tablet 200 mcg PO QAM RF: 0 thiamine HCl (vitamin B1) 100 mg Tablet 100 mg PO QAM RF: 0 allopurinol 100 mg Tablet 100 mg PO QPM RF: 0 folic acid 1 mg Tablet 1 mg PO QAM RF: 0 albuterol sulfate 90 mcg/actuation Hfa Aerosol Inhaler 2 puff INHALATION Q6H PRN (Reason: Shortness Of Breath) RF: 0 garlic Tablet 500 mg PO QPM RF: 0 venlafaxine 75 mg Tablet Extended Release 24hr 225 mg PO QAM RF: 0 fexofenadine 180 mg Tablet 180 mg PO QAM RF: 0 amlodipine [Norvasc] 5 mg Tablet 5 mg PO QAM Qty: 30 RF: 0 metoprolol succinate 50 mg Tablet Extended Release 24 Hr 25 mg PO DAILY RF: 0 melatonin 3 mg Tablet 9 mg PO HS PRN (Reason: Sleep) RF: 0 olopatadine 0.1 % Drops 1 drp OPB DAILY RF: 0 fluticasone propion-salmeterol 500-50 mcg/dose Blister With Device 1 inh INHALATION BID RF: 0 montelukast 10 mg Tablet 10 mg PO DAILY RF: 0 omega-3 fatty acids Capsule 1,000 mg PO DAILY RF: 0 uncdnyonrvm-stagenftt-yikpmgri 100-62.5-25 mcg Blister With Device 1 inh INHALATION DAILY RF: 0 Discharge Orders: Discharge Order (Routine); Ordered 12/21/21 Ordered By: Javon Jansen Admission Data Admit Date/Time: 12/20/21 04:02 Attending Provider: Javon Jansen Admit Provider: Peter Anderson Primary Care Provider: Israel Patel Other Providers: Keith Worthington ; Peter Anderson Other Interventions: Discharge Summary Assessment (RN) Last Done: 12/21/21 11:50 Coding Level of Care Code D/C DAY MANAGEMENT >30 MINS Diagnoses STEMI (ST elevation myocardial infarction) I21.3 Hypertension I10 Chronic kidney disease, stage 3 N18.3 Asthma J45.909 Lower urinary tract symptoms (LUTS) R39.9 Ascending aortic aneurysm I71.2 Hypothyroidism E03.9 Sleep apnea G47.30 Gout M10.9
[2021-12-22 07:13] LABS: Estimated Average Glucose 123 mg/dl; Hemoglobin A1C 5.9 % (4.5-5.6)
--- NOTE | 2021-12-22 10:20 | Electrocardiogram Report ---
Test Reason : Blood Pressure : / mmHG Vent. Rate : 064 BPM Atrial Rate : 064 BPM P-R Int : 128 ms QRS Dur : 082 ms QT Int : 390 ms P-R-T Axes : 040 068 -14 degrees QTc Int : 402 ms Normal sinus rhythm with sinus arrhythmia When compared with ECG of 20-DEC-2021 06:42, No significant change was found Confirmed by Israel Vines ([id number]) on 12/22/2021 10:19:52 AM Referred By: REFERRED SELF Confirmed By:Kody Vines
[2021-12-22 10:49] LABS: iSTAT Creatinine 2.2 mg/dl (0.6-1.3); iSTAT Hemoglobin 13.6 g/dl (14.0-18.0); iSTAT Ionized Calcium 1.25 mmol/l (1.12-1.32); iSTAT Potassium 4.1 mmol/L (3.3-5.0)
== END 2021-12-21 12:30 | disposition home or self-care (01) | DRG 247 ==
LOC: ED 02:16 → CC 02:44 → OBSVTOIN 04:02 → INTOOBSV 04:02 → SUATTDRO 04:02 → 1E 05:35

== ENCOUNTER 2022-10-14 12:35 | Observation (INO) ==
[2022-10-14 13:08] LABS: Basophils # (auto) 0.03 K/uL (0-0.2); Basophils % (auto) 0.4 %; Eosinophils # (auto) 0.23 K/uL (0-0.50); Eosinophils % (auto) 3.3 %; Hematocrit (blood only) 41.6 % (40.1-51.0); Hemoglobin 13.9 g/dl (14.0-18.0); Immature Granulocytes # (auto) 0.03 K/uL (0.00-0.02); Immature Granulocytes % (auto) 0.4 %; Lymphocytes # (auto) 1.03 K/uL (1.2-3.4); Lymphocytes % (auto) 14.8 %; Mean Corpuscular Hemoglobin 31.7 pg (25.0-34.0); Mean Corpuscular Hgb Conc 33.4 g/dL (32.0-36.0); Mean Corpuscular Volume 94.8 fL (80.0-100.0); Mean Platelet Volume 10.1 fL (9.4-12.4); Monocytes # (auto) 0.58 K/uL (0.24-0.82); Monocytes % (auto) 8.3 %; Neutrophils # (auto) 5.07 K/uL (1.4-6.5); Neutrophils % (auto) 72.8 %; Platelet Count 202 K/uL (130-400); RDW Coefficient of Variation 13.7 % (11.5-14.5); RDW Standard Deviation 47.8 fL (36.4-46.3); Red Blood Count 4.39 M/uL (4.63-6.08); White Blood Count 6.97 K/ul (4.8-10.8)
[2022-10-14 13:20] LABS: INR 0.9 (0.9-1.1); Partial Thromboplastin Time 28.2 Seconds (21.0-31.0)
--- NOTE | 2022-10-14 13:44 | XRay Report ---
XR chest 2V PA/lateral HISTORY: Shortness of breath. Atypical Chest pain, nonspecific COMPARISON: Chest 12/20/2021. FINDINGS: Bilateral total shoulder arthroplasties again noted. There are cervical spinal fusion hardw are. Punctate calcified granuloma within the left lung apex, unchanged. Otherwise, the lungs are chapito r. Cardiac silhouette is normal in size. No pleural effusions. No pneumothorax. IMPRESSION: No acute process. ACT 112: Negative or not required by law. Electronically signed by: Nikko Leggett M.D. 10/14/2022 1:43 PM
[2022-10-14 13:46] LABS: Troponin I High Sensitivity 9.4 pg/ml (0-20)
[2022-10-14 13:50] LABS: Albumin Globulin Ratio 1.4 (0.9-2); Albumin Level 3.7 gm/dl (3.4-5.0); Bilirubin,Total 0.5 mg/dl (0.2-1.0); Calcium 9.7 mg/dl (8.5-10.1); Creatinine Clr Calc Pharmacy 26.4 ml/min; Est GFR (African American) 29.5 ml/min; Est GFR (Non-African American) 25.5 ml/min; Globulin 2.6 gm/dl (2.5-4.0); Potassium 4.3 mmol/L (3.5-5.1); Total Protein 6.3 gm/dl (6.0-8.3)
--- NOTE | 2022-10-14 14:40 | Electrocardiogram Report ---
Test Reason : Blood Pressure : / mmHG Vent. Rate : 090 BPM Atrial Rate : 090 BPM P-R Int : 128 ms QRS Dur : 078 ms QT Int : 348 ms P-R-T Axes : 067 071 056 degrees QTc Int : 425 ms Normal sinus rhythm Normal ECG When compared with ECG of 21-DEC-2021 07:47, Nonspecific T wave abnormality no longer evident in Inferior leads Confirmed by Jin Carlson ([id number]) on 10/14/2022 2:40:42 PM Referred By: ED Confirmed By:Jin Carlson
[2022-10-14] MEDS ORDERED: SODIUM CHLORIDE 0.9% 500 ML IV ONE (14:53)
--- NOTE | 2022-10-14 15:04 | Emergency Department Note ---
History of Present Illness General Chief complaint: Dizziness Stated complaint: DIZZY, HARD TO BREATHE, VISION PROBLEMS Time Seen by Provider: 10/14/22 14:32 Source: patient and family (Son who is at the bedside) Mode of arrival: ambulatory Limitations: no limitations History of Present Illness Maximum Pain Intensity: 6 This patient is an 82-year-old male who has a complex medical history including coronary artery disease COPD and renal insufficiency comes in after having near syncopal episodes last several days he feels dizzy mostly when he is walking. He says he gets very unstable when he walks where he starts seeing block and has to sit down or pass out he says he is not fallen or actually passed out. He gets short of breath at times he has been using his puffers but he says they do not help as much. He feels okay at present he does get chest pressure at times. He had a chronic cough. Just recently finished an antibiotic. He denies any nausea or vomiting. No blood or melena stool no fever chills no urinary symptoms. No difficulty speaking or swallowing no focal numbness or weakness. He is on a blood thinner he thinks but not sure which 1. He is scheduled to have some sort of stress test done in Dr. Carrion's office tomorrow Home Medications Medication Instructions Recorded Confirmed Type allopurinol 100 mg tablet 100 mg PO QPM 08/10/18 10/14/22 History thiamine HCl (vitamin B1) 100 mg 100 mg PO QAM 08/10/18 10/14/22 History tablet lisinopril 10 1 tab PO QAM 05/17/19 10/14/22 History mg-hydrochlorothiazide 12.5 mg tablet prazosin 5 mg capsule 5 mg PO QPM #30 caps 11/15/19 10/14/22 Rx venlafaxine 75 mg tablet,extended 225 mg PO QAM 04/06/20 10/14/22 History release 24 hr finasteride 5 mg tablet 5 mg PO DAILY #30 tabs 07/24/20 10/14/22 Rx levothyroxine 25 mcg tablet 25 mcg PO DAILY #90 tabs 08/11/21 10/14/22 Rx melatonin 3 mg tablet 9 mg PO HS PRN Sleep 12/20/21 10/14/22 History olopatadine 0.1 % eye drops 1 drp OPB DAILY 12/20/21 10/14/22 History nitroglycerin 0.4 mg sublingual 0.4 mg sublingual PRN PRN chest 12/21/21 10/14/22 Rx tablet (Nitrostat) pain #1 btl pravastatin 10 mg tablet 10 mg PO QAM #30 tabs 12/21/21 10/14/22 Rx ticagrelor 90 mg tablet (Brilinta) 90 mg PO BID #60 tabs 12/21/21 10/14/22 Rx omeprazole 20 mg capsule,delayed 20 mg PO DAILY #90 caps 06/16/22 10/14/22 Rx release ezetimibe 10 mg tablet 10 mg PO DAILY #90 tabs 06/17/22 10/14/22 Rx nicotine 14 mg/24 hr daily 1 patch transdermal Q24H #28 ea 06/17/22 10/14/22 Rx transdermal patch fluticasone 500 mcg-salmeterol 50 1 inh inhalation BID #60 ea 06/25/22 10/14/22 Rx mcg/dose blistr powdr for inhalation (Advair Diskus) albuterol sulfate 90 mcg/actuation 2 puff inhalation Q6H PRN 07/29/22 10/14/22 Rx aerosol inhaler Shortness Of Breath #8.5 grams fluticasone propionate 50 1 spray intranasal DAILY #9.9 grams 07/29/22 10/14/22 Rx mcg/actuation nasal spray,suspension (Allergy Relief (fluticasone)) levocetirizine 5 mg tablet 5 mg PO DAILY PRN allergy symptoms 07/29/22 10/14/22 Rx #30 tabs montelukast 10 mg tablet 10 mg PO DAILY #90 tabs 07/29/22 10/14/22 Rx tiotropium bromide 2.5 2 inh inhalation QAM #4 grams 07/29/22 10/14/22 Rx mcg/actuation mist for inhalation dextromethorphan-guaifenesin 10 10 ml PO Q6H PRN cough #237 mL 08/31/22 10/14/22 Rx mg-100 mg/5 mL oral liquid garlic 500 mg capsule 500 mg PO QPM 10/14/22 10/14/22 History omega-3 fatty acids 1,000 mg 1,000 mg PO DAILY 10/14/22 10/14/22 History capsule Allergies Allergy/AdvReac Type Severity Reaction Status Date / Time aspirin Allergy Severe hives and Verified 10/14/22 18:23 mouth/throat swelling, hyperventilation ketorolac Allergy Unknown avoids Verified 10/14/22 18:23 secondary to aspirin component oxycodone AdvReac Intermediate MENTAL Verified 10/14/22 18:23 STATUS CHANGES [id number]-[id number] Reductase AdvReac Intermediate severe Verified 10/14/22 18:23 Inhibitor muscle [[id number]-Lfc Reductase cramps Inhibitor] Past Med/Surg History Medical History Alcohol dependence QUIT 2018 Anxiety and depression Arthritis Asthma using PRN inh multiple x daily at present. recent asthma attack 1 mo ago; completed steroid taper. Benign essential tremor HANDS BPH (benign prostatic hyperplasia) Carotid artery stenosis S/P RIGHT CEA (08/2018) Cervical facet joint syndrome Chronic back pain CKD (chronic kidney disease) stage 3, GFR 30-59 ml/min COPD (chronic obstructive pulmonary disease) Degenerative disc disease Deviated nasal septum GERD (gastroesophageal reflux disease) CONTROLLED Hearing deficit History of colon cancer REMOVED COLON POLYP + (NO OTHER INTERVENTION NEEDED) Hx of gout Hyperlipidemia Hypothyroidism Lumbar radiculopathy Osteoarthritis Positive colorectal cancer screening using Cologuard test Post traumatic stress disorder Prediabetes Scoliosis Seasonal allergies Sleep apnea NO DEVICE (COULD NOT TOLERATE) Temporomandibular joint dysfunction syndrome Surgical History History of cardiac cath - NO STENTS History of cataract surgery History of cervical spinal surgery C3-5 ACDF History of colonoscopy W/ POLYPECTOMY History of difficult intubation C3-5 ACDF= 08/23/17= Grade view 2, Glidescope#4, ETT 8.0 (Head/neck neutral for intubation) at [facility] History of esophagogastroduodenoscopy (EGD) History of lumbar fusion L4-L5 History of right-sided carotid endarterectomy History of tonsillectomy History of tooth extraction History of total knee replacement LEFT History of total shoulder replacement RIGHT/LEFT Family History Sister Breast cancer Cancer Hypertension Brother Myocardial infarction COPD (chronic obstructive pulmonary disease) Hypertension Father Hypertension Mother Hypertension Other No family history of adverse response to anesthesia Denies family history of Ovarian cancer Prostate cancer Diabetes Colorectal cancer Social History Smoking Status: Former smoker Tobacco Type: Cigarettes Age Started Using Tobacco: 14; Age Quit Using Tobacco: 36; packs per day: 2; Second Hand Exposure: No; Hx Alcohol Use: Yes Alcohol type: beer Hx Substance Use: No Preferred Language: Slovak Communication Ability: Effective Visual Impairment: No Limitations Hearing Ability: Use of Hearing Aid Internal Grinder Tender Required: No Beliefs That Will Affect Care: None marital status: / Current Living Situation: Family current occupational status: retired 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, is also a [employer] How many Children do You have: 6 Feels Safe at Home: Yes Childhood Exposure to Second-Hand Smoke: Yes caffeine: Yes Dental Care, Regularly: No Physical Activity Frequency: Daily Seatbelt Use: always Sunscreen Use: Yes Assistive Devices: None Review of Systems A total of 10 systems reviewed and were otherwise negative Physical Exam Vital Signs Vital Signs - 24 hr 10/14/22 12:36 10/14/22 14:39 10/14/22 16:00 Temperature 37 C Temperature Source Temporal Artery Scan Pulse Rate - Lying Pulse Rate - Sitting Pulse Rate - Standing Pulse Rate 106 H Pulse Rate [Finger] 71 76 Respiratory Rate 20 16 18 Respiratory Effort / Characteristics Non-Labored Spontaneous Non-Labored Non-Labored Respiratory Depth Normal Normal Normal Respiratory Pattern Regular Blood Pressure - Lying Blood Pressure - Sitting Blood Pressure- Standing Blood Pressure 100/73 Blood Pressure [Left Arm] 133/84 147/82 H Blood Pressure Mean 82 Blood Pressure Mean [Left Arm] 100 103 Pulse Oximetry 97 98 99 Oxygen Delivery Method Room Air Room Air Sepsis Recent Fever Within 48 Hours No Sepsis New/Unexplained Change in Mental Status No Sepsis Action Taken by Nursing No Action Required 10/14/22 17:04 10/14/22 18:23 Temperature Temperature Source Pulse Rate - Lying 75 Pulse Rate - Sitting 80 Pulse Rate - Standing 85 Pulse Rate Pulse Rate [Finger] 78 Respiratory Rate 16 Respiratory Effort / Characteristics Non-Labored Respiratory Depth Normal Respiratory Pattern Blood Pressure - Lying 156/91 H Blood Pressure - Sitting 139/84 Blood Pressure- Standing 121/74 Blood Pressure Blood Pressure [Left Arm] 154/88 H Blood Pressure Mean Blood Pressure Mean [Left Arm] 110 Pulse Oximetry 97 Oxygen Delivery Method Room Air Sepsis Recent Fever Within 48 Hours Sepsis New/Unexplained Change in Mental Status Sepsis Action Taken by Nursing General: Well developed well nourished older male who appears in no acute distress, breathing comfortably on room air. Normal speech HEENT: Normal cephalic atraumatic. Pupils are equal round and reactive to light. Extraocular movements are intact. Oropharynx is pink with moist mucous membranes. No swelling of the mouth lips or tongue. Neck: Supple with a midline trachea. No meningeal signs or stiffness, no JVD or bruits. No Stridor. Chest: Clear to auscultation bilaterally. No wheezes or rhonchi. No increased work of breathing. Heart: Regular rate and rhythm without murmurs or gallops. Abdomen: Soft nontender, nondistended without rebound guarding or rigidity. Extremities: No cyanosis clubbing or edema. No calf tenderness or assymetry Spine/Back. Non tender to palpation. No CVA tenderness Skin: Good turgor without rashes. Neurologic exam: Cranial nerves two through 12 are intact. Motor and sensation are intact and symmetrical throughout. Course Administered Medications Discontinued Medications Sodium Chloride (Nss) 500 mls @ 999 mls/hr IV .Q31M ONE Stop: 10/14/22 15:23 Last Infusion: 10/14/22 16:38 Dose: 0 mls/hr Documented By: Admin: 10/14/22 16:01 Dose: 999 mls/hr Documented By: [email or web address] Medical Decision Making Differential Diagnosis Acute coronary syndrome, arrhythmia, dehydration, anemia, neurologic disease, pulmonary disease, electrolyte or metabolic abnormality Medical Records Attestation: I reviewed the patient's medical records. Home Medications Current Medication List: was personally reviewed by mo Laboratory Data Attestation: I reviewed the patient's lab results. Result diagrams: 10/14/22 12:50 10/14/22 12:50 Lab Results 10/14/22 10/14/22 10/14/22 Range/Units 12:50 12:50 12:50 WBC 6.97 (4.8-10.8) K/ul RBC 4.39 L (4.63-6.08) M/uL Hgb 13.9 L (14.0-18.0) g/dl Hct 41.6 (40.1-51.0) % MCV 94.8 (80.0-100.0) fL MCH 31.7 (25.0-34.0) pg MCHC 33.4 (32.0-36.0) g/dL RDW Std Deviation 47.8 H (36.4-46.3) fL RDW Coeff of Zelalem 13.7 (11.5-14.5) % Plt Count 202 (130-400) K/uL MPV 10.1 (9.4-12.4) fL Immature Gran % (Auto) 0.4 % Neut % (Auto) 72.8 % Lymph % (Auto) 14.8 % [place] % (Auto) 8.3 % Eos % (Auto) 3.3 % Baso % (Auto) 0.4 % Neut # (Auto) 5.07 (1.4-6.5) K/uL Lymph # (Auto) 1.03 L (1.2-3.4) K/uL [place] # (Auto) 0.58 (0.24-0.82) K/uL Eos # (Auto) 0.23 (0-0.50) K/uL Baso # (Auto) 0.03 (0-0.2) K/uL Immature Gran # (Auto) 0.03 H (0.00-0.02) K/uL PT 10.0 (9.0-12.0) Seconds INR 0.9 (0.9-1.1) APTT 28.2 (21.0-31.0) Seconds PTT Ratio 1.0 Sodium 137 (136-145) mmol/L Potassium 4.3 (3.5-5.1) mmol/L Chloride 104 (98-107) mmol/L Carbon Dioxide 26 (21-32) mmol/L Anion Gap 7 (3-11) BUN 30 H (6-23) mg/dl Creatinine 2.30 H (0.6-1.4) mg/dl Est Cr Clr Drug Dosing 26.4 ml/min Est GFR ( Amer) 29.5 ml/min Est GFR (Non-Af Amer) 25.5 ml/min BUN/Creatinine Ratio 13.0 (10-20) Glucose 82 (70-99(Fasting)) mg/dl Calcium 9.7 (8.5-10.1) mg/dl Total Bilirubin 0.5 (0.2-1.0) mg/dl AST 11 L (13-39) U/L ALT 7 (7-52) U/L Alkaline Phosphatase 55 (34-104) U/L Troponin I High Sens 9.4 (0-20) pg/ml Total Protein 6.3 (6.0-8.3) gm/dl Albumin 3.7 (3.4-5.0) gm/dl Globulin 2.6 (2.5-4.0) gm/dl Albumin/Globulin Ratio 1.4 (0.9-2) SARS-CoV-2 (PCR) (Negative) Influenza Type A (PCR) (Neg) Influenza Type B (PCR) (Neg) RSV (RT-PCR) (Neg) 10/14/22 10/14/22 Range/Units 15:30 Unknown WBC (4.8-10.8) K/ul RBC (4.63-6.08) M/uL Hgb (14.0-18.0) g/dl Hct (40.1-51.0) % MCV (80.0-100.0) fL MCH (25.0-34.0) pg MCHC (32.0-36.0) g/dL RDW Std Deviation (36.4-46.3) fL RDW Coeff of [place]lal[place] (11.5-14.5) % Plt Count (130-400) K/uL MPV (9.4-12.4) fL Immature Gran % (Auto) % Neut % (Auto) % Lymph % (Auto) % [place] % (Auto) % Eos % (Auto) % Baso % (Auto) % Neut # (Auto) (1.4-6.5) K/uL Lymph # (Auto) (1.2-3.4) K/uL [place] # (Auto) (0.24-0.82) K/uL Eos # (Auto) (0-0.50) K/uL Baso # (Auto) (0-0.2) K/uL Immature Gran # (Auto) (0.00-0.02) K/uL PT (9.0-12.0) Seconds INR (0.9-1.1) APTT (21.0-31.0) Seconds PTT Ratio Sodium (136-145) mmol/L Potassium (3.5-5.1) mmol/L Chloride (98-107) mmol/L Carbon Dioxide (21-32) mmol/L Anion Gap (3-11) BUN (6-23) mg/dl Creatinine (0.6-1.4) mg/dl Est Cr Clr Drug Dosing ml/min Est GFR ( Amer) ml/min Est GFR (Non-Af Amer) ml/min BUN/Creatinine Ratio (10-20) Glucose (70-99(Fasting)) mg/dl Calcium (8.5-10.1) mg/dl Total Bilirubin (0.2-1.0) mg/dl AST (13-39) U/L ALT (7-52) U/L Alkaline Phosphatase (34-104) U/L Troponin I High Sens 8.2 (0-20) pg/ml Total Protein (6.0-8.3) gm/dl Albumin (3.4-5.0) gm/dl Globulin (2.5-4.0) gm/dl Albumin/Globulin Ratio (0.9-2) SARS-CoV-2 (PCR) NEGATIVE (Negative) Influenza Type A (PCR) Negative (Neg) Influenza Type B (PCR) Negative (Neg) RSV (RT-PCR) Negative (Neg) Imaging Data Attestation: I personally reviewed and interpreted this imaging study as follows: My Impression: Chest x-rayno acute infiltrate, failure, pneumothorax seen Radiologist's Impression: Chest X-Ray 10/14/22 12:42 XR chest 2V PA/lateral HISTORY: Shortness of breath. Atypical Chest pain, nonspecific COMPARISON: Chest 12/20/2021. FINDINGS: Bilateral total shoulder arthroplasties again noted. There are cervical spinal fusion hardware. Punctate calcified granuloma within the left lung apex, unchanged. Otherwise, the lungs are clear. Cardiac silhouette is normal in size. No pleural effusions. No pneumothorax. IMPRESSION: No acute process. ACT 112: Negative or not required by law. Electronically signed by: Nikko Leggett M.D. 10/14/2022 1:[address] 10/14/22 14:53 CT SCAN OF THE BRAIN WITHOUT IV CONTRAST CLINICAL HISTORY: Dizziness. COMPARISON STUDY: CT of the brain dated 04/09/2017. TECHNIQUE: Unenhanced axial CT scan of the brain is performed from the vertex to the skull base. A dose lowering technique was utilized adhering to the principles of ALARA. CT DOSE: 537.48 mGy.cm FINDINGS: Brain parenchyma: There is age-related involutional change noting mild subcor tical and periventricular microangiopathic disease. There is no hemorrhage, mass effect, or evidence of acute territorial ischemia by CT criteria. Bhat-white matter differentiation is preserved. No extra-axial fluid collection is seen. Ventricles, sulci, cisterns: Prominent secondary to involutional change. Intracranial vasculature: There is atherosclerotic calcification of the cavernous carotid and vertebral arteries. Calvarium: Unremarkable. Sinuses and mastoids: The visualized paranasal sinuses are clear. There is a small right mastoid effusion. The left mastoid air cells are well pneumatized. Orbits: The bony orbits are grossly intact. There is a left ocular lens implant. IMPRESSION: There is no hemorrhage, mass effect, or evidence of acute territorial ischemia by CT criteria. ACT 112: Negative or not required by law. Electronically signed by: Phill Oakley M.D. 10/14/2022 3:49 PM ECG Data Attestation: I personally reviewed and interpreted this ECG as follows: Indication: + vomiting Rate (beats per minute): 90 Rhythm: + normal sinus ECG Intervals/blocks: + Normal QRS, + Normal QT and + Normal CA ECG Dulzura: + Normal ECG ST segments: + Normal ST segments ECG Findings: no PACs or no PVCs Comparison ECG Date: from (12/21/21) [facility] Narrative This patient comes in as described above. He was placed on a telemetry monitor in room B2. He is here for treatment and evaluation of near syncope. He does have a history of cardiac disease and in fact it sounds like he is scheduled for stress test tomorrow. His EKG is unremarkable and his initial troponin is negative I did order a second troponin as well as another EKG. I did order CAT scan of his head as well. In the meantime he was given gentle IV hydration. chest x-ray does not show congestive heart failure, pneumonia, or pneumothorax. He has no significant electrolyte or metabolic abnormalities with exception of some chronic renal insufficiency which does not look any worse. CAT scan of his head was unremarkable. His second troponin was also unremarkable. Given his multiple near syncopal episodes I do think he needs to be admitted/observed. He tells me the stress test was canceled tomorrow because of the weather. I have consulted the [facility] hospitalist to see the patient in ER for these measures Continuous cardiac monitoring: Orders placed in EMR for continuous cardiac monitoring. Upon my interpretation patient noted be in normal sinus rhythm with a rate of 85 Impression & Plan Near syncope, Hx of coronary artery disease, Lab test negative for COVID-19 virus, Dizziness, Chronic renal insufficiency Discharge Plan Visit Data Chief Complaint: Dizziness Stated Complaint: DIZZY, HARD TO BREATHE, VISION PROBLEMS ED Provider: Alejandro Clayton Discharge Problem: Near syncope, Hx of coronary artery disease, Lab test negative for COVID-19 virus, Dizziness, Chronic renal insufficiency Forms Stand Alone Forms: My [facility] Prescriptions Prescriptions: No Action levothyroxine 25 mcg tablet 25 mcg PO DAILY Qty: 90 3RF nicotine 14 mg/24 hr patch 24 hour 1 patch transdermal Q24H Qty: 28 0RF ezetimibe 10 mg tablet 10 mg PO DAILY Qty: 90 3RF fluticasone propion-salmeterol [Advair Diskus] 500-50 mcg/dose blister with device 1 inh inhalation BID Qty: 60 3RF dextromethorphan-guaifenesin 10-100 mg/5 mL liquid 10 ml PO Q6H PRN (Reason: cough) Qty: 237 0RF prazosin 5 mg capsule 5 mg PO QPM Qty: 30 2RF finasteride 5 mg tablet 5 mg PO DAILY Qty: 30 11RF Label Comments: QPM levocetirizine 5 mg tablet 5 mg PO DAILY PRN (Reason: allergy symptoms) Qty: 30 0RF albuterol sulfate 90 mcg/actuation HFA aerosol inhaler 2 puff INHALATION Q6H PRN (Reason: Shortness Of Breath) Qty: 8.5 4RF montelukast 10 mg tablet 10 mg PO DAILY Qty: 90 1RF tiotropium bromide 2.5 mcg/actuation mist 2 inh inhalation QAM Qty: 4 4RF fluticasone propionate [Allergy Relief (fluticasone)] 50 mcg/actuation spray,suspension 1 spray intranasal DAILY Qty: 9.9 1RF Rx Instructions: administer into each nostril once daily lisinopril-hydrochlorothiazide 10-12.5 mg tablet 1 tab PO QAM omeprazole 20 mg capsule,delayed release(/EC) 20 mg PO DAILY Qty: 90 3RF thiamine HCl (vitamin B1) 100 mg Tablet 100 mg PO QAM allopurinol 100 mg Tablet 100 mg PO QPM venlafaxine 75 mg Tablet Extended Release 24hr 225 mg PO QAM melatonin 3 mg Tablet 9 mg PO HS PRN (Reason: Sleep) olopatadine 0.1 % Drops 1 drp OPB DAILY pravastatin 10 mg Tablet 10 mg PO QAM Qty: 30 2RF nitroglycerin [Nitrostat] 0.4 mg Tablet, Sublingual 0.4 mg sublingual PRN PRN (Reason: chest pain) Qty: 1 3RF Rx Instructions: take if chest pain recurs, if relieved and returns go to ER. If you take one and if goes away and stays away contact your tourist escort on next office day Brilinta 90 mg Tablet 90 mg PO BID Qty: 60 2RF omega-3 fatty acids 1,000 mg Capsule 1,000 mg PO DAILY garlic 500 mg Capsule 500 mg PO QPM Referrals Referrals: Israel Patel MD [Primary Care Provider] -
--- NOTE | 2022-10-14 15:51 | CT Scan Report ---
CT SCAN OF THE BRAIN WITHOUT IV CONTRAST CLINICAL HISTORY: Dizziness. COMPARISON STUDY: CT of the brain dated 04/09/2017. TECHNIQUE: Unenhanced axial CT scan of the brain is performed from the vertex to the skull base. A do se lowering technique was utilized adhering to the principles of ALARA. CT DOSE: 537.48 mGy.cm FINDINGS: Brain parenchyma: There is age-related involutional change noting mild subcortical and periventricula r microangiopathic disease. There is no hemorrhage, mass effect, or evidence of acute territorial isc hemia by CT criteria. Bhat-white matter differentiation is preserved. No extra-axial fluid collection is seen. Ventricles, sulci, cisterns: Prominent secondary to involutional change. Intracranial vasculature: There is atherosclerotic calcification of the cavernous carotid and vertebr al arteries. Calvarium: Unremarkable. Sinuses and mastoids: The visualized paranasal sinuses are clear. There is a small right mastoid effu tai. The left mastoid air cells are well pneumatized. Orbits: The bony orbits are grossly intact. There is a left ocular lens implant. IMPRESSION: There is no hemorrhage, mass effect, or evidence of acute territorial ischemia by CT susan mayorga. ACT 112: Negative or not required by law. Electronically signed by: Phill Oakley M.D. 10/14/2022 3:49 PM
[2022-10-14 16:04] LABS: Influenza A virus by PCR Negative (Neg); Influenza B virus by PCR Negative (Neg); RSV by PCR Negative (Neg); SARS CoV2 RNA(COVID-19) Ceph NEGATIVE (Negative)
[2022-10-14] MEDS ORDERED: ACETAMINOPHEN 325 MG TAB PO PRN (18:05)
--- NOTE | 2022-10-14 18:05 | History & Physical Report ---
Date of Service October 14, 2022 Assessment & Plan (1) Near syncope: Plan: This is an 82-year-old male with a history of asthmaCOPD overlap, CKD3, hypertension, coronary artery disease status post FERNANDO placement, hypertension, tobacco use, COPD, vitamin B12 deficiency, anemia, PTSD who presented to [facility] for evaluation of presyncopal symptoms that have occurred over the last two weeks following getting up from a sitting/lying position to w alking around. Presyncope - Reporting 1-2 weeks of presyncope symptoms that occurred with positional changes (sitting/lying to standing) and resolved with sitting down - Work-up as follows: - BUN 30 / Cr 2.30 (baseline ~2-2.4) - Troponin negative, no new ECG changes - CT-H negative for acute process - Carotid US in 09/22: <30% re-stenosis of R ICA, <50% stenosis of L ICA, >50% stenosis of L common carotid - COPD-asthma history noted; normal oxygen saturations while here - TTE (12/23): mild concentric LVH, LVEF 60 to 65% without wall motion abnormalities, normal right ventricle, mild mitral regurgitation, elevated right ventricular systolic pressures (30-40). - Primarily suspect orthostasis in setting of multiple antiHTN agents, known CKD, and low reported PO intake (he was noted to be significant hypotensive at his cardiology visit 09/22, for which amlodipine was held). However, his appreciable and known COPD-asthma history are noted and may be exacerbating the former. Lower current suspicion for coronary insufficiency, but possible - was scheduled to have f/u dobutamine stress test this month. His US Carotids were good and no other symptoms to suggest neurocardiogenic at this time. No current scans on his vertebrobasilar system. - Check orthostatics, ambulatory pulse ox - Consult cardiology: appreciate insight on ?need to repeat dobutamine stress test while here -- hold on ordering TTE for now - Give another 500cc of NSS - Monitor on telemetry - Hold lisinopril-HCTZ (2) Hx of coronary artery disease: Plan: - Follows with Dr. Carrion - Cath 12/2021: 100% occlusion of mid-circumflex, multivessel non-culprit CAD in ostial, LAD, distal RCA; normal cardiac filling pressures. -- s/p 1x FERNANDO placement in mid-circumflex - Continue metoprolol, ticagrelor, pravastatin, ezetimibe - Hold lisinopril-HCTZ, as above - Scheduled to have repeat dobutamine stress TTE this month - Cardiology consulted, as above (3) Chronic renal insufficiency: Plan: - Follows with [facility] - Baseline Cr per nephrology notes in 07/2022 was at ~2.0 -- however, chart review reveals values from 2-2.7 - Cr on arrival at 2.30 - Gentle hydration for now - stop after additional 500cc (in setting of suspected orthostasis) - Avoid renotoxic medications (4) Asthma-COPD overlap syndrome: Plan: - Follows with [facility]monology - Continue home inhalers (hd-Advair, tiotropium), albuterol PRN, montelukast - Workup ongoing to see if he may qualify for a biologic - Ambulatory pulse ox while here - Not currently in exacerbation, will monitor (5) Essential hypertension: Plan: - Ongoing concerns for orthostasis as above -- noted that in his last cardiology visit, was significantly hypotensive for which amlodipine was held - Continue metoprolol - Hold lisinopril-HCTZ (10-12.5) in setting of suspected orthostasis -- could consider restarting at lower dose lisinopril pending w/u above Plan Hypothyroidism: Continue levothyroxine Gout: Continue allopurinol BPH: continue prazosin -- if ongoing suspicion for orthostasis, this may be another option to hold Code: DNR/DNI Diet: PPX: Lovenox Dispo: [facility] History of Present Illness Primary Care Provider: Israel Patel MD This is an 82-year-old male with a history of asthmaCOPD overlap, CKD3, hypertension, coronary artery disease status post FERNANDO placement, hypertension, tobacco use, COPD, vitamin B12 deficiency, anemia, PTSD who presented to [facility] for evaluation of presyncope. Patient is a very pleasant, but difficult historian. Patient says that at baseline, he is quite short of breath and that this has been getting more significant over the last several months. He said beginning about 2 weeks ago, whenever he would stand up from a sitting position and walk for several feet, he would feel like he was going to blackout. He describes this as his vision going black. He denies any sensation of the room spinning. Denies any weakness in his arms or legs. He says he gets the urge to sit down, and this usually resolves the symptomsthough he is left with a feeling of "wooziness "for the next hour or 2. He denies any chest pain during these episodes. Says that his breathing feels labored with walking, though that this is not significantly different than usual. Denies any recent changes with coughing, fever, chills, sweats. Denies any recent swelling in his legs. Denies any waking up short of breath at night. He does say that he was seen recently by an outside provider for a "infection in his lungs." He was put on levofloxacin, and apparently had Achilles tendon he was put on another antibiotic, but does not remember what it was called. Today supposedly the last day. Patient follows with Dr. Carrion of cardiology, and was most recently seen on 09/22/2022. At that time, he reported progressive dyspnea on exertion without anginal symptoms. A dobutamine stress echo was ordered. Interestingly at this visit, he was noted to be hypotensive. Patient also follows with [facility] pulmonology, last seen in July 2022. He is on high-dose ICS as well as Spiriva and as needed albuterol. Last echo in December 2021 revealed mild concentric LVH, LVEF 60 to 65% without wall motion abnormalities, normal right ventricle, mild mitral regurgitation, elevated right ventricular systolic pressures (30-40). Medications reviewed and include albuterol, allopurinol, dextromethorphanguaifenesin, ezetimibe, finasteride, fluticasonesalmeterol, fluticasone, levocetirizine, levothyroxine, lisinoprilhydrochlorothiazide, melatonin, metoprolol succinate, montelukast, omeprazole, pravastatin, prazosin, thiamine, Brilinta, tiotropium, venlafaxine. In the ED, patient was found to be mildly tachycardic to 106 with otherwise normal vital signs. Labs revealed chronic normocytic anemia hemoglobin 13.9, lymphopenia 1.0, BUN 30/creatinine 2.3 (baseline since July 2022 around 2). COVID, influenza, RSV negative. CT of the head without acute process. Chest x-ray negative. ECG without acute abnormalities. He was given fluids. --- This documentation was created utilizing dictation software. As such, syntax, grammatical, and word-choice errors may be present. Notes are screened prior to submission in an attempt to reduce these errors. If there are any questions or concerns, please contact the author directly for clarification. Allergies Allergy/AdvReac Type Severity Reaction Status Date / Time aspirin Allergy Severe hives and Verified 10/14/22 18:23 mouth/throat swelling, hyperventilation ketorolac Allergy Unknown avoids Verified 10/14/22 18:23 secondary to aspirin component oxycodone AdvReac Intermediate MENTAL Verified 10/14/22 18:23 STATUS CHANGES Ylnvedj-QVF-GrQ Reductase AdvReac Intermediate severe Verified 10/14/22 18:23 Inhibitor muscle [Wyhgdlg-Qbp-Wmd Reductase cramps Inhibitor] Home Medications Medication Instructions Recorded Confirmed Type allopurinol 100 mg tablet 100 mg PO QPM 08/10/18 10/14/22 History thiamine HCl (vitamin B1) 100 mg 100 mg PO QAM 08/10/18 10/14/22 History tablet lisinopril 10 1 tab PO QAM 05/17/19 10/14/22 History mg-hydrochlorothiazide 12.5 mg tablet prazosin 5 mg capsule 5 mg PO QPM #30 caps 11/15/19 10/14/22 Rx venlafaxine 75 mg tablet,extended 225 mg PO QAM 04/06/20 10/14/22 History release 24 hr finasteride 5 mg tablet 5 mg PO DAILY #30 tabs 07/24/20 10/14/22 Rx levothyroxine 25 mcg tablet 25 mcg PO DAILY #90 tabs 08/11/21 10/14/22 Rx melatonin 3 mg tablet 9 mg PO HS PRN Sleep 12/20/21 10/14/22 History olopatadine 0.1 % eye drops 1 drp OPB DAILY 12/20/21 10/14/22 History nitroglycerin 0.4 mg sublingual 0.4 mg sublingual PRN PRN chest 12/21/21 10/14/22 Rx tablet (Nitrostat) pain #1 btl pravastatin 10 mg tablet 10 mg PO QAM #30 tabs 12/21/21 10/14/22 Rx ticagrelor 90 mg tablet (Brilinta) 90 mg PO BID #60 tabs 12/21/21 10/14/22 Rx omeprazole 20 mg capsule,delayed 20 mg PO DAILY #90 caps 06/16/22 10/14/22 Rx release ezetimibe 10 mg tablet 10 mg PO DAILY #90 tabs 06/17/22 10/14/22 Rx nicotine 14 mg/24 hr daily 1 patch transdermal Q24H #28 ea 06/17/22 10/14/22 Rx transdermal patch fluticasone 500 mcg-salmeterol 50 1 inh inhalation BID #60 ea 06/25/22 10/14/22 Rx mcg/dose blistr powdr for inhalation (Advair Diskus) albuterol sulfate 90 mcg/actuation 2 puff inhalation Q6H PRN 07/29/22 10/14/22 Rx aerosol inhaler Shortness Of Breath #8.5 grams fluticasone propionate 50 1 spray intranasal DAILY #9.9 grams 07/29/22 10/14/22 Rx mcg/actuation nasal spray,suspension (Allergy Relief (fluticasone)) levocetirizine 5 mg tablet 5 mg PO DAILY PRN allergy symptoms 07/29/22 10/14/22 Rx #30 tabs montelukast 10 mg tablet 10 mg PO DAILY #90 tabs 07/29/22 10/14/22 Rx tiotropium bromide 2.5 2 inh inhalation QAM #4 grams 07/29/22 10/14/22 Rx mcg/actuation mist for inhalation dextromethorphan-guaifenesin 10 10 ml PO Q6H PRN cough #237 mL 08/31/22 10/14/22 Rx mg-100 mg/5 mL oral liquid garlic 500 mg capsule 500 mg PO QPM 10/14/22 10/14/22 History omega-3 fatty acids 1,000 mg 1,000 mg PO DAILY 10/14/22 10/14/22 History capsule Past Med/Surg History Medical History Alcohol dependence QUIT 2018 Anxiety and depression Arthritis Asthma using PRN inh multiple x daily at present. recent asthma attack 1 mo ago; completed steroid taper. Benign essential tremor HANDS BPH (benign prostatic hyperplasia) Carotid artery stenosis S/P RIGHT CEA (08/2018) Cervical facet joint syndrome Chronic back pain CKD (chronic kidney disease) stage 3, GFR 30-59 ml/min COPD (chronic obstructive pulmonary disease) Degenerative disc disease Deviated nasal septum GERD (gastroesophageal reflux disease) CONTROLLED Hearing deficit History of colon cancer REMOVED COLON POLYP + (NO OTHER INTERVENTION NEEDED) Hx of gout Hyperlipidemia Hypothyroidism Lumbar radiculopathy Osteoarthritis Positive colorectal cancer screening using Cologuard test Post traumatic stress disorder Prediabetes Scoliosis Seasonal allergies Sleep apnea NO DEVICE (COULD NOT TOLERATE) Temporomandibular joint dysfunction syndrome Surgical History History of cardiac cath - NO STENTS History of cataract surgery History of cervical spinal surgery C3-5 ACDF History of colonoscopy W/ POLYPECTOMY History of difficult intubation C3-5 ACDF= 08/23/17= Grade view 2, Glidescope#4, ETT 8.0 (Head/neck neutral for intubation) at [facility] History of esophagogastroduodenoscopy (EGD) History of lumbar fusion L4-L5 History of right-sided carotid endarterectomy History of tonsillectomy History of tooth extraction History of total knee replacement LEFT History of total shoulder replacement RIGHT/LEFT Family History Sister Breast cancer Cancer Hypertension Brother Myocardial infarction COPD (chronic obstructive pulmonary disease) Hypertension Father Hypertension Mother Hypertension Other No family history of adverse response to anesthesia Denies family history of Ovarian cancer Prostate cancer Diabetes Colorectal cancer Social History Smoking Status: Former smoker Tobacco Type: Cigarettes Age Started Using Tobacco: 14; Age Quit Using Tobacco: 36; packs per day: 2; Second Hand Exposure: No; Do You Dip or Chew Tobacco: No; Hx Alcohol Use: No Hx Substance Use: No Preferred Language: Slovenian Communication Ability: Effective Visual Impairment: No Limitations Hearing Ability: Use of Hearing Aid Shop Worker Required: No Beliefs That Will Affect Care: None marital status: / Current Living Situation: Alone current occupational status: retired 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 HEENT: NCAT. - Eyes - Sclera are white, anicteric, and without injection. - Mouth - MMM - Neck - supple, no appreciable JVD. No carotid bruits. Cardiac: Normal rate and regular rhythm; S1 and S2 present with no murmurs, rubs, or gallops. Pulmonary: Good respiratory effort with symmetric expansion of the chest. No use of accessory muscles. Lungs were clear to auscultation bilaterally with no crackles or wheezes. Abdominal: Normoactive bowel sounds. Abdomen was soft, nondistended, and non- tender to palpation. Extremities: Upper and lower extremities are warm and well perfused. No peripheral edema in the lower extremities bilaterally Neuro: CNII-XII grossly intact. UE, LE strength 5/5 bilaterally. Sensation to light touch grossly in-tact. Psych: Well-developed, well-nourished, appropriately dressed for occasion. Behavior is cooperative and appropriate. Affect is WNL. Insight is appropriate. Results & Data Results & Data ([facility]) Vital Signs (Past 12 Hours) Vital Signs Temp Pulse Pulse Resp BP BP Pulse Ox 10/14/22 16:00 76 18 147/82 H 99 10/14/22 14:39 71 16 133/84 98 10/14/22 12:36 37 C 106 H 20 100/73 97 O2 Del Method 10/14/22 16:00 10/14/22 14:39 Room Air 10/14/22 12:36 Room Air Supervising Physician Co-Signing Physician Notes Patient seen and examined at bedside. I obtained a history and physical examination during face to face encounter. I reviewed above note and agree with it. I discussed plan of care with Dr. Hong and patient. Patient will be admitted for orthostasis, will consult cardio. will hold any PRN BP meds. Resident Activity Tracking Resident Involvement: Resident Care Provided Care Provided: Adult Hospital Medicine
[2022-10-14] MEDS ORDERED: ALBUTEROL HFA 8 GM INHALER INH PRN (18:51)
[2022-10-14] MEDS ORDERED: NITROGLYCERIN SL 0.4 MG/TAB TAB SL PRN (18:51)
[2022-10-14] MEDS ORDERED: MELATONIN 3 MG TAB PO PRN (18:51)
[2022-10-14] MEDS ORDERED: SODIUM CHLORIDE 0.9% 500 ML IV SCH (21:00)
[2022-10-14] MEDS ORDERED: ENOXAPARIN INJ 30 MG/0.3 ML SYR SQ SCH (21:00)
[2022-10-14] MEDS: FLUTICASONE/VILANTEROL 200/25MCG 14 PUFFS/INHALER INH SCH (23:01)
[2022-10-14] MEDS: TICAGRELOR 90 MG TAB PO SCH (23:02)
[2022-10-14] MEDS: PRAZOSIN HCL 1 MG CAP PO SCH (23:02)
[2022-10-14] MEDS: allopurinoL 100 MG TAB PO SCH (23:02)
[2022-10-15] MEDS: LEVOTHYROXINE SODIUM 25 MCG TABLET PO SCH (06:33)
[2022-10-15] MEDS: FLUTICASONE PROPIONATE NA SPR 16 GM BTL SCH (08:17)
[2022-10-15] MEDS: PANTOprazole 40 MG TAB PO SCH (08:17)
[2022-10-15] MEDS: THIAMINE HCL 100 MG TAB PO SCH (08:17)
[2022-10-15] MEDS: MONTELUKAST SODIUM 10 MG TABLET PO SCH (08:17)
[2022-10-15] MEDS: TICAGRELOR 90 MG TAB PO SCH ×2 (08:17→21:17)
[2022-10-15] MEDS: EZETIMIBE 10 MG TABLET PO SCH (08:17)
[2022-10-15] MEDS: FINASTERIDE 5 MG TAB PO SCH (08:17)
[2022-10-15] MEDS: PRAVASTATIN SOD 10 MG TAB PO SCH (08:17)
[2022-10-15] MEDS: METOPROLOL SUCC 25MG EXT REL TAB PO SCH (08:17)
[2022-10-15] MEDS: VENLAFAXINE HCL XR 75 MG CAPXR PO SCH (08:17)
[2022-10-15] MEDS: UMECLIDINIUM BROMIDE 62.5MCG/BLISTER 7 PUFFS/INHALER INH SCH (08:18)
[2022-10-15] MEDS ORDERED: INFLUENZA VACCINE HIGH DOSE PF 65+ 0.7 ML SYR IM ONE (09:00)
[2022-10-15 09:29] LABS: BUN Creatinine Ratio 15.5 (10-20); Calcium 8.8 mg/dl (8.5-10.1); Creatinine Clr Calc Pharmacy 32.4 ml/min; Est GFR (African American) 37.9 ml/min; Est GFR (Non-African American) 32.7 ml/min; Potassium 4.1 mmol/L (3.5-5.1)
--- NOTE | 2022-10-15 12:06 | Cardiology Consultation ---
Date of Consultation October 15, 2022 Assessment & Plan (1) Near syncope: (2) Orthostatic lightheadedness: (3) BATES (dyspnea on exertion): (4) Presence of drug coated stent in left circumflex coronary artery: (5) Coronary artery disease: Plan 82-year-old man with CAD status post stenting earlier this year who presents with recurring orthostatic lightheadedness/presyncope as well as progressive dyspnea on exertion without signs or symptoms suggestive of heart failure. He has several reasons for dyspnea on exertion, including a history of asthma/COPD with current bronchospasm on exam and recent Achilles tendon ruptures leading to inactivity and likely deconditioning. Will proceed with dobutamine stress echocardiogram as recommended by Dr. Carrion to exclude myocardial ischemia as a contributing factor to his dyspnea. If this is negative, would focus on optimizing pulmonary status and obtaining physical/occupational therapy to improve his ambulatory function and ability to participate in aerobic exercise. Etiology of his recurrent orthostatic lightheadedness/presyncope is uncertain, but given his very labile blood pressure and the presence of some degree of carotid stenosis may need to allow for at least mild permissive hypertension. W ill check formal orthostatics on patient, since his symptoms are highly suggestive that there is an orthostatic component. Would hold prazosin, since this is notorious for causing orthostatic hypotension. His beta-sujata was continued until recently due to his mild aortic root dilation (4.[address]), but would continue to hold his Toprol-XL for now since this may blunt his reflex heart rate response to hypotension and since he has not shown any tendency to tachycardia. If he does demonstrate orthostasis, may discontinue diuretic component of lisinopril/HCTZ as well. Could use clonidine for marked BP elevations, since this would be less likely to predispose to hypotension than most other vasoactive medications. Will also check his left ventricular cavity outflow velocities prior to his dobutamine stress echo to exclude dynamic left ventricular outflow tract obstruction playing a role in his orthostatic symptoms. Further recommendations based on assessing formal orthostatic hemodynamics and results of his dobutamine stress echocardiogram. History of Present Illness Reason for Consultation: presyncope, prev scheduled for dobut stress Requesting Physician: Cornell Douglas Attending Physician: Cornell Douglas History of Present Illness 82-year-old man with CAD (inferolateral STEMI December 2021 with FERNANDO of latemid circumflex into OM 2), asthma, sputum culture with Acinetobacter baumannii treated with levofloxacin, and recent bilateral Achilles rupture who was admitted 10/14/2022 with recurrent orthostatic lightheadedness/presyncope. He has been fairly inactive in recent months due to his Achilles rupture and the pain when he attempts to walk. He does note progressive dyspnea on exertion when he is able to perform his limited activities. No chest pain. Due to the progressive dyspnea, Dr. Carrion had recommended a dobutamine stress echocardiogram as an outpatient to exclude high risk ischemic disease. Of note, he was hospitalized for presyncope October 2021, which at that time was felt related to bradycardia in the setting of negative chronotropic medications. In recent months, he has noted clearly orthostatic lightheadedness, particularly when he gets up in the morning and attempts to stand up. At the time of his office visit with Dr. Carrion last month, his initial BP was 72/48 mmHg which improved later during the visit. There was a 20 mm differential and arm BPs with the right arm being higher. He has been moderately hypertensive this hospitalization but is currently normotensive. His vasoactive regimen at the time of his recent office visit included lisinopril/HCTZ 10 mg/12.5 mg, prazosin 5 mg daily, metoprolol succinate 50 mg daily, amlodipine 5 mg daily. Amlodipine was discontinued due to hypotension at that time and it appears metoprolol was stopped as well. At the time of my evaluation this morning, the patient had no somatic complaints at rest. Allergies Allergy/AdvReac Type Severity Reaction Status Date / Time aspirin Allergy Severe hives and Verified 10/14/22 18:23 mouth/throat swelling, hyperventilation ketorolac Allergy Unknown avoids Verified 10/14/22 18:23 secondary to aspirin component oxycodone AdvReac Intermediate MENTAL Verified 10/14/22 18:23 STATUS CHANGES Wpkntev-UNO-PoL Reductase AdvReac Intermediate severe Verified 10/14/22 18:23 Inhibitor muscle [Gsbvrrf-Xob-Qwy Reductase cramps Inhibitor] Home Medications Medication Instructions Recorded Confirmed Type allopurinol 100 mg tablet 100 mg PO QPM 08/10/18 10/14/22 History thiamine HCl (vitamin B1) 100 mg 100 mg PO QAM 08/10/18 10/14/22 History tablet lisinopril 10 1 tab PO QAM 05/17/19 10/14/22 History mg-hydrochlorothiazide 12.5 mg tablet prazosin 5 mg capsule 5 mg PO QPM #30 caps 11/15/19 10/14/22 Rx venlafaxine 75 mg tablet,extended 225 mg PO QAM 04/06/20 10/14/22 History release 24 hr finasteride 5 mg tablet 5 mg PO DAILY #30 tabs 07/24/20 10/14/22 Rx levothyroxine 25 mcg tablet 25 mcg PO DAILY #90 tabs 08/11/21 10/14/22 Rx melatonin 3 mg tablet 9 mg PO HS PRN Sleep 12/20/21 10/14/22 History olopatadine 0.1 % eye drops 1 drp OPB DAILY 12/20/21 10/14/22 History nitroglycerin 0.4 mg sublingual 0.4 mg sublingual PRN PRN chest 12/21/21 10/14/22 Rx tablet (Nitrostat) pain #1 btl pravastatin 10 mg tablet 10 mg PO QAM #30 tabs 12/21/21 10/14/22 Rx ticagrelor 90 mg tablet (Brilinta) 90 mg PO BID #60 tabs 12/21/21 10/14/22 Rx omeprazole 20 mg capsule,delayed 20 mg PO DAILY #90 caps 06/16/22 10/14/22 Rx release ezetimibe 10 mg tablet 10 mg PO DAILY #90 tabs 06/17/22 10/14/22 Rx nicotine 14 mg/24 hr daily 1 patch transdermal Q24H #28 ea 06/17/22 10/14/22 Rx transdermal patch fluticasone 500 mcg-salmeterol 50 1 inh inhalation BID #60 ea 06/25/22 10/14/22 Rx mcg/dose blistr powdr for inhalation (Advair Diskus) albuterol sulfate 90 mcg/actuation 2 puff inhalation Q6H PRN 07/29/22 10/14/22 Rx aerosol inhaler Shortness Of Breath #8.5 grams fluticasone propionate 50 1 spray intranasal DAILY #9.9 grams 07/29/22 10/14/22 Rx mcg/actuation nasal spray,suspension (Allergy Relief (fluticasone)) levocetirizine 5 mg tablet 5 mg PO DAILY PRN allergy symptoms 07/29/22 10/14/22 Rx #30 tabs montelukast 10 mg tablet 10 mg PO DAILY #90 tabs 07/29/22 10/14/22 Rx tiotropium bromide 2.5 2 inh inhalation QAM #4 grams 07/29/22 10/14/22 Rx mcg/actuation mist for inhalation dextromethorphan-guaifenesin 10 10 ml PO Q6H PRN cough #237 mL 08/31/22 10/14/22 Rx mg-100 mg/5 mL oral liquid garlic 500 mg capsule 500 mg PO QPM 10/14/22 10/14/22 History omega-3 fatty acids 1,000 mg 1,000 mg PO DAILY 10/14/22 10/14/22 History capsule Patient History Medical History Alcohol dependence QUIT 2018 Anxiety and depression Arthritis Asthma using PRN inh multiple x daily at present. recent asthma attack 1 mo ago; completed steroid taper. Benign essential tremor HANDS BPH (benign prostatic hyperplasia) Carotid artery stenosis S/P RIGHT CEA (08/2018) Cervical facet joint syndrome Chronic back pain CKD (chronic kidney disease) stage 3, GFR 30-59 ml/min COPD (chronic obstructive pulmonary disease) Degenerative disc disease Deviated nasal septum GERD (gastroesophageal reflux disease) CONTROLLED Hearing deficit History of colon cancer REMOVED COLON POLYP + (NO OTHER INTERVENTION NEEDED) Hx of gout Hyperlipidemia Hypothyroidism Lumbar radiculopathy Osteoarthritis Positive colorectal cancer screening using Cologuard test Post traumatic stress disorder Prediabetes Scoliosis Seasonal allergies Sleep apnea NO DEVICE (COULD NOT TOLERATE) Temporomandibular joint dysfunction syndrome Surgical History History of cardiac cath - NO STENTS History of cataract surgery History of cervical spinal surgery C3-5 ACDF History of colonoscopy W/ POLYPECTOMY History of difficult intubation C3-5 ACDF= 08/23/17= Grade view 2, Glidescope#4, ETT 8.0 (Head/neck neutral for intubation) at [facility] History of esophagogastroduodenoscopy (EGD) History of lumbar fusion L4-L5 History of right-sided carotid endarterectomy History of tonsillectomy History of tooth extraction History of total knee replacement LEFT History of total shoulder replacement RIGHT/LEFT Family History Sister Breast cancer Cancer Hypertension Brother Myocardial infarction COPD (chronic obstructive pulmonary disease) Hypertension Father Hypertension Mother Hypertension Other No family history of adverse response to anesthesia Denies family history of Ovarian cancer Prostate cancer Diabetes Colorectal cancer Social History Smoking Status: Former smoker Tobacco Type: Cigarettes Age Started Using Tobacco: 14; Age Quit Using Tobacco: 36; packs per day: 2; Second Hand Exposure: No; Do You Dip or Chew Tobacco: No; Hx Alcohol Use: No Hx Substance Use: No Preferred Language: Cymraes Communication Ability: Effective Visual Impairment: No Limitations Hearing Ability: Use of Hearing Aid Music Journalist Required: No Beliefs That Will Affect Care: None marital status: / Current Living Situation: Alone current occupational status: retired 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 BP 128/72 mmHg. Pulse 85 bpm and regular. Skin: no ecchymoses or generalized lesions. HEENT: unremarkable. Neck: Jugular venous pulse at the clavicle at 90 degrees, no carotid bruits. Lungs: Expiratory wheezing worse on forced exhalation. No crackles. No accessory muscle use. Cardiac: regular rhythm, normal S1 and S2, no murmur or gallop. Abdomen: benign. Extremities: no edema, brisk radial and dorsalis pedis pulses. Neurologic: normal affect and conversation, nonfocal. Results & Data ([facility]) Laboratory Results High-sensitivity troponin 8.2 and 9.4. Hemoglobin 13.9 with normal white count platelet count. Normal electrolytes, BUN 29, creatinine 1.87. Diagnostic Findings ECG on admission showed sinus rhythm at 90 bpm and was completely unremarkable. Compared with December 2019 ECG, nonspecific T wave abnormality no longer evident in inferior leads. Echocardiogram shows hyperdynamic LV (EF greater than 70%), mild LVH with focal basal septal thickening (inadequate Doppler to evaluate LVOT dynamic obstruction), grade 1 diastolic dysfunction, mild MR, mild pulmonary hypertension, IVC not visualized suggesting reduced central venous pressure. Chest x-ray showed no acute process. Recent carotid Doppler showed less than 30% right internal carotid stenosis status post endarterectomy, greater than 50% left common carotid stenosis with only mild plaque by 2D. PG Care Time/CCT Total # of Minutes Spent Total Time Spent with Patient: Total time spent is greater than 50% in coordination of care (as documented) at patient's floor/unit and/or counseling patient: Coding Level of Care Code 29816 Inpt Consult Level 4 Diagnoses Near syncope R55 Orthostatic lightheadedness R42 BATES (dyspnea on exertion) R06.09 Presence of drug coated stent in left circumflex coronary artery Z95.5 Coronary artery disease I25.10
--- NOTE | 2022-10-15 12:51 | XCELERA ---
[id number] \\[id number]
[2022-10-15] MEDS ORDERED: ATROPINE SULFATE 0.1 MG/ML 10ML SYR IV ONE (13:04)
[2022-10-15] MEDS ORDERED: METOPROLOL TARTRATE 1 MG/ML VIAL IV ONE (13:05)
[2022-10-15] MEDS ORDERED: DOBUTamine HCL 12.5 MG/ML 20 ML VIAL IV ONE (13:05)
[2022-10-15] MEDS ORDERED: ESMOLOL HCL INJ 10 MG/ML 10ML VIAL IV ONE (13:19)
--- NOTE | 2022-10-15 14:59 | XCELERA ---
[id number] \\[id number]_[id number]___[id number]
[2022-10-15] MEDS ORDERED: ENOXAPARIN INJ 40 MG/0.4 ML SYR SQ SCH (21:00)
[2022-10-15] MEDS: allopurinoL 100 MG TAB PO SCH (21:16)
[2022-10-15] MEDS: PRAZOSIN HCL 1 MG CAP PO SCH (21:16)
[2022-10-15] MEDS: FLUTICASONE/VILANTEROL 200/25MCG 14 PUFFS/INHALER INH SCH (21:19)
--- NOTE | 2022-10-15 22:33 | Hospitalist Progress Note ---
Date of Service October 15, 2022 Assessment & Plan (1) Near syncope: Plan: This is an 82-year-old male with a history of asthmaCOPD overlap, CKD3, hypertension, coronary artery disease status post FERNANDO placement, hypertension, tobacco use, COPD, vitamin B12 deficiency, anemia, PTSD who presented to [facility] for evaluation of presyncopal symptoms that have occurred over the last two weeks following getting up from a sitting/lying position to wa lking around. Presyncope - Reporting 1-2 weeks of presyncope symptoms that occurred with positional changes (sitting/lying to standing) and resolved with sitting down - Work-up as follows: - BUN 30 / Cr 2.30 (baseline ~2-2.4) - Troponin negative, no new ECG changes - CT-H negative for acute process - Carotid US in 09/22: <30% re-stenosis of R ICA, <50% stenosis of L ICA, >50% stenosis of L common carotid - COPD-asthma history noted; normal oxygen saturations while here - TTE (12/23): mild concentric LVH, LVEF 60 to 65% without wall motion abnormalities, normal right ventricle, mild mitral regurgitation, elevated right ventricular systolic pressures (30-40). - Primarily suspect orthostasis in setting of multiple antiHTN agents, known CKD, and low reported PO intake (he was noted to be significant hypotensive at his cardiology visit 09/22, for which amlodipine was held). However, his appreciable and known COPD-asthma history are noted and may be exacerbating the former. Lower current suspicion for coronary insufficiency, but possible - was scheduled to have f/u dobutamine stress test this month. His US Carotids were good and no other symptoms to suggest neurocardiogenic at this time. No current scans on his vertebrobasilar system. - Check orthostatics, ambulatory pulse ox - Consult cardiology: appreciate insight on ?need to repeat dobutamine stress test while here -- hold on ordering TTE for now - Give another 500cc of NSS - Monitor on telemetry - Hold lisinopril-HCTZ ON 10/15 hold all BP meds. plan is to keep his BP elevated as he has a 50 point drop when he ambulates. THis will help improve his quality of life, rather have his BP elevated vs well controlled but with falls. will monitor overnight and likely discharge tomorrow,. (2) Hx of coronary artery disease: Plan: - Follows with Dr. Carrion - Cath 12/2021: 100% occlusion of mid-circumflex, multivessel non-culprit CAD in ostial, LAD, distal RCA; normal cardiac filling pressures. -- s/p 1x FERNANDO placement in mid-circumflex - Continue metoprolol, ticagrelor, pravastatin, ezetimibe - Hold lisinopril-HCTZ, as above - Scheduled to have repeat dobutamine stress TTE this month - Cardiology consulted, as above (3) Chronic renal insufficiency: Plan: - [facility] - Baseline Cr per nephrology notes in 07/2022 was at ~2.0 -- however, chart review reveals values from 2-2.7 - Cr on arrival at 2.30 - Gentle hydration for now - stop after additional 500cc (in setting of suspected orthostasis) - Avoid renotoxic medications (4) Asthma-COPD overlap syndrome: Plan: - Follows with [facility] - Continue home inhalers (hd-Advair, tiotropium), albuterol PRN, montelukast - Workup ongoing to see if he may qualify for a biologic - Ambulatory pulse ox while here - Not currently in exacerbation, will monitor (5) Essential hypertension: Plan: - Ongoing concerns for orthostasis as above -- noted that in his last cardiology visit, was significantly hypotensive for which amlodipine was held - Continue metoprolol - Hold lisinopril-HCTZ (10-12.5) in setting of suspected orthostasis -- could consider restarting at lower dose lisinopril pending w/u above Plan Hypothyroidism: Continue levothyroxine Gout: Continue allopurinol BPH: continue prazosin -- if ongoing suspicion for orthostasis, this may be another option to hold Code: DNR/DNI Diet: HH PPX: Lovenox Dispo: [facility] Admission and Anticipated Discharge Date Admission Date: October 14, 2022 Subjective 82 yo male reports no new symptoms. Review of Systems Review of Systems: All systems reviewed & are unremarkable except as noted in HPI & below Physical Exam Physical Exam: General: 82-year old male who is alert, oriented, and appears in no acute distress. HEENT: NCAT. - Eyes - Sclera are white, anicteric, and without injection. - Mouth - MMM - Neck - supple, no appreciable JVD. No carotid bruits. Cardiac: Normal rate and regular rhythm; S1 and S2 present with no murmurs, rubs, or gallops. Pulmonary: Good respiratory effort with symmetric expansion of the chest. No use of accessory muscles. Lungs were clear to auscultation bilaterally with no crackles or wheezes. Abdominal: Normoactive bowel sounds. Abdomen was soft, nondistended, and non- tender to palpation. Extremities: Upper and lower extremities are warm and well perfused. No peripheral edema in the lower extremities bilaterally Neuro: CNII-XII grossly intact. UE, LE strength 5/5 bilaterally. Sensation to light touch grossly in-tact. Psych: Well-developed, well-nourished, appropriately dressed for occasion. Behavior is cooperative and appropriate. Affect is WNL. Insight is appropriate. Results & Data Results & Data ([facility]) Vital Signs (Past 12 Hours) Vital Signs Temp Pulse Pulse Resp BP BP BP 10/15/22 20:00 36.9 C 84 20 165/99 H 10/15/22 15:27 36.9 C 75 20 140/92 10/15/22 15:12 36.9 C 75 20 140/92 10/15/22 14:07 85 150/92 H 10/15/22 11:37 36.6 C 85 18 128/72 Pulse Ox O2 Del Method 10/15/22 20:00 96 Room Air 10/15/22 15:27 94 Room Air 10/15/22 15:12 94 Room Air 10/15/22 14:07 10/15/22 11:37 96 Room Air PG Care Time/CCT Total # of Minutes Spent Total Time Spent with Patient: Total time spent is greater than 50% in coordination of care (as documented) at patient's floor/unit and/or counseling patient: Coding Level of Care Code 74026 Subseq Hosp Care Lvl 2 Diagnoses Near syncope R55 Hx of coronary artery disease Z86.79 Chronic renal insufficiency N18.9 Asthma-COPD overlap syndrome J44.9 Essential hypertension I10
[2022-10-16] MEDS: LEVOTHYROXINE SODIUM 25 MCG TABLET PO SCH (05:41)
[2022-10-16 08:02] LABS: Hematocrit (blood only) 36.2 % (40.1-51.0); Hemoglobin 12.4 g/dl (14.0-18.0); Mean Corpuscular Hemoglobin 31.7 pg (25.0-34.0); Mean Corpuscular Hgb Conc 34.3 g/dL (32.0-36.0); Mean Corpuscular Volume 92.6 fL (80.0-100.0); Platelet Count 171 K/uL (130-400); RDW Coefficient of Variation 13.2 % (11.5-14.5); RDW Standard Deviation 44.9 fL (36.4-46.3); Red Blood Count 3.91 M/uL (4.63-6.08); White Blood Count 5.08 K/ul (4.8-10.8)
[2022-10-16 08:27] LABS: BUN Creatinine Ratio 17.3 (10-20); Calcium 9.1 mg/dl (8.5-10.1); Creatinine Clr Calc Pharmacy 31.8 ml/min; Est GFR (Non-African American) 31.9 ml/min
--- NOTE | 2022-10-16 09:39 | Billing Data ---
Date of Service October 14, 2022 Coding Level of Care Code INT OBSERVATION CARE 70M LVL 3
[2022-10-16] MEDS: MONTELUKAST SODIUM 10 MG TABLET PO SCH (10:50)
[2022-10-16] MEDS: EZETIMIBE 10 MG TABLET PO SCH (10:50)
[2022-10-16] MEDS: METOPROLOL SUCC 25MG EXT REL TAB PO SCH (10:51)
[2022-10-16] MEDS: VENLAFAXINE HCL XR 75 MG CAPXR PO SCH (10:51)
[2022-10-16] MEDS: THIAMINE HCL 100 MG TAB PO SCH (10:51)
[2022-10-16] MEDS: PANTOprazole 40 MG TAB PO SCH (10:51)
[2022-10-16] MEDS: TICAGRELOR 90 MG TAB PO SCH (10:52)
[2022-10-16] MEDS: PRAVASTATIN SOD 10 MG TAB PO SCH (10:52)
[2022-10-16] MEDS: UMECLIDINIUM BROMIDE 62.5MCG/BLISTER 7 PUFFS/INHALER INH SCH (10:52)
[2022-10-16] MEDS: FINASTERIDE 5 MG TAB PO SCH (10:52)
[2022-10-16] MEDS: FLUTICASONE PROPIONATE NA SPR 16 GM BTL SCH (10:56)
--- NOTE | 2022-10-16 11:36 | Cardiology Progress Note ---
Date of Service October 16, 2022 Assessment & Plan (1) Orthostatic hypotension: (2) Near syncope: (3) BATES (dyspnea on exertion): (4) Presence of drug coated stent in left circumflex coronary artery: (5) Coronary artery disease: Plan Patient doing well with no evidence of myocardial ischemia on dobutamine stress echocardiogram yesterday. Dyspnea likely due to his underlying pulmonary disease and deconditioning after bilateral Achilles tendon rupture. He had a nearly 50 mmHg drop in BP from supine to standing yesterday, given his longstanding orthostatic lightheadedness would recommend allowing some degree of permissive hypertension. I took the liberty of discontinuing his prazosin. There was some uncertainty regarding whether he was still taking low-dose metoprolol, but reasonable to remain on this given his tachycardia with activity. Continue lisinopril/HCTZ, monitor BP and consider further dosage adjustment of vasoactive medication as outpatient if necessary. Does have a prominent basal septum on echocardiogram and, although no major gradient noted, he did have an asymmetric intracavitary outflow pattern suggesting the possibility of mild dynamic obstruction (particularly when he stands up or if he is volume depleted). Stable from a cardiac standpoint for discharge. Admission and Anticipated Discharge Date Admission Date: October 14, 2022 Subjective No complaints, ambulated hallway without difficulty. No orthostasis this morning but did become transiently tachycardic. BP remains labile (systolic blood pressure 104-165 mmHg). Telemetry showed sinus rhythm predominantly in the 80 bpm range with transient sinus tachycardia with activity. Physical Exam Physical Exam: No distress. BP as noted in subjective. BP check yesterday showed marked orthostatic change. Pulse 90 bpm regular. Skin: no ecchymoses or generalized lesions. HEENT: unremarkable. Neck: Jugular venous pulse at the clavicle at 90 degrees, no carotid bruits. Lungs: Expiratory wheezing worse on forced exhalation. No crackles. No accessory muscle use. Cardiac: regular rhythm, normal S1 and S2, no murmur or gallop. Abdomen: benign. Extremities: no edema, brisk radial and dorsalis pedis pulses. Neurologic: normal affect and conversation, nonfocal. Results & Data ([facility]) Vital Signs (Past 12 Hours) Vital Signs Temp Pulse Resp BP Pulse Ox O2 Del Method 10/16/22 11:21 99.3 F 101 H 18 120/86 93 Room Air 10/16/22 08:04 98.4 F 91 H 18 124/82 92 Room Air 10/16/22 04:00 98.3 F 94 H 20 104/57 L 92 Room Air 10/15/22 23:41 Room Air PG Care Time/CCT Total # of Minutes Spent Total Time Spent with Patient: Total time spent is greater than 50% in coordination of care (as documented) at patient's floor/unit and/or counseling patient: Coding Level of Care Code 53552 Subseq Hosp Care Lvl 3 Diagnoses Orthostatic hypotension I95.1 Near syncope R55 BATES (dyspnea on exertion) R06.09 Presence of drug coated stent in left circumflex coronary artery Z95.5 Coronary artery disease I25.10
== END 2022-10-16 16:30 | disposition home or self-care (01) ==
LOC: 2N 12:35 → ED 12:35 → 2N 20:02

== ENCOUNTER 2023-05-27 03:12 | Observation (INO) ==
[2023-05-27] MEDS ORDERED: NITROGLYCERIN 2% OINTMENT 30GM TUBE EXT STA (03:35)
--- NOTE | 2023-05-27 03:35 | Emergency Department Note ---
History of Present Illness General Chief complaint: Chest Pain Time Seen by Provider: 05/27/23 03:15 History of Present Illness This 82-year-old gentleman with coronary disease presents to the ER complaining of exertional chest pain rating to his left arm that was relieved tonight with nitroglycerin. Patient got up to go the bathroom developed chest pain and the pain went down his arm. He took his nitroglycerin and started to feel much better. Patient denies abdominal pain, fevers, leg pain or swelling. He states he is now currently pain-free. Home Medications Medication Instructions Recorded Confirmed Type allopurinol 100 mg tablet 200 mg PO QPM 08/10/18 05/19/23 History thiamine HCl (vitamin B1) 100 mg 100 mg PO QAM 08/10/18 05/19/23 History tablet venlafaxine 75 mg tablet,extended 225 mg PO QAM 04/06/20 05/19/23 History release 24 hr finasteride 5 mg tablet 5 mg PO DAILY #30 tabs 07/24/20 05/19/23 Rx levothyroxine 25 mcg tablet 25 mcg PO DAILY #90 tabs 08/11/21 05/19/23 Rx olopatadine 0.1 % eye drops 0 drp OPB DAILY 12/20/21 05/19/23 History pravastatin 10 mg tablet 10 mg PO QAM #30 tabs 12/21/21 05/19/23 Rx ticagrelor 90 mg tablet (Brilinta) 90 mg PO BID #60 tabs 12/21/21 05/19/23 Rx omeprazole 20 mg capsule,delayed 20 mg PO DAILY #90 caps 06/16/22 05/19/23 Rx release ezetimibe 10 mg tablet 10 mg PO DAILY #90 tabs 06/17/22 05/19/23 Rx nicotine 14 mg/24 hr daily 1 patch transdermal Q24H #28 ea 06/17/22 04/27/23 Rx transdermal patch fluticasone 500 mcg-salmeterol 50 1 inh inhalation BID #60 ea 06/25/22 05/19/23 Rx mcg/dose blistr powdr for inhalation (Advair Diskus) albuterol sulfate 90 mcg/actuation 2 puff inhalation Q6H PRN 07/29/22 05/19/23 Rx aerosol inhaler Shortness Of Breath #8.5 grams levocetirizine 5 mg tablet 5 mg PO DAILY PRN allergy symptoms 07/29/22 05/19/23 Rx #30 tabs montelukast 10 mg tablet 10 mg PO DAILY #90 tabs 07/29/22 05/19/23 Rx tiotropium bromide 2.5 2 inh inhalation QAM #4 grams 07/29/22 05/19/23 Rx mcg/actuation mist for inhalation garlic 500 mg capsule 0 mg PO QPM 10/14/22 05/19/23 History omega-3 fatty acids 1,000 mg 0 mg PO DAILY 10/14/22 05/19/23 History capsule tamsulosin 0.4 mg capsule 0.4 mg PO DAILY #90 caps 10/30/22 05/19/23 Rx metoprolol succinate 25 mg 50 mg PO DAILY 01/28/23 05/19/23 History tablet,extended release 24 hr denosumab 60 mg/mL subcutaneous 60 mg subcut Q6MO 365 days #2 mL 03/30/23 05/19/23 Rx syringe (Prolia) amlodipine 10 mg tablet 10 mg PO DAILY 04/22/23 05/19/23 History cholecalciferol (vitamin D3) 25 0 mcg PO DAILY 04/22/23 05/19/23 History mcg (1,000 unit) capsule cyanocobalamin (vitamin B-12) 100 100 mcg PO BID 04/22/23 05/19/23 History mcg tablet dextromethorphan-guaifenesin 10 0 ml PO Q6H PRN cough 04/22/23 05/19/23 History mg-100 mg/5 mL oral liquid fluticasone propionate 50 1 spray intranasal BID 04/22/23 05/19/23 History mcg/actuation nasal spray,suspension (Allergy Relief (fluticasone)) folic acid 1 mg tablet 1 mg PO Q OTHER DAY 04/22/23 05/19/23 History nitroglycerin 0.4 mg sublingual 0 mg sublingual PRN PRN chest pain 04/22/23 05/19/23 History tablet (Nitrostat) trazodone 50 mg tablet 50 mg PO HS PRN sleep 04/22/23 05/19/23 History Allergies Allergy/AdvReac Type Severity Reaction Status Date / Time aspirin Allergy Severe hives and Verified 04/27/23 10:35 mouth/throat swelling, hyperventilation ketorolac Allergy Unknown avoids Verified 04/27/23 10:35 secondary to aspirin component levofloxacin AdvReac Severe torn Verified 05/19/23 15:21 tendons oxycodone AdvReac Intermediate MENTAL Verified 04/27/23 10:35 STATUS CHANGES [id number] Reductase AdvReac Intermediate severe Verified 04/27/23 10:35 Inhibitor muscle [Aczzlxq-[id number]-Ikw Reductase cramps Inhibitor] Past Med/Surg History Medical History Alcohol dependence QUIT 2018 Anxiety and depression Arthritis Asthma using PRN inh multiple x daily at present. recent asthma attack 1 mo ago; completed steroid taper. Benign essential tremor HANDS BPH (benign prostatic hyperplasia) Carotid artery stenosis S/P RIGHT CEA (08/2018) Cervical facet joint syndrome Chronic back pain CKD (chronic kidney disease) stage 3, GFR 30-59 ml/min COPD (chronic obstructive pulmonary disease) Degenerative disc disease Deviated nasal septum GERD (gastroesophageal reflux disease) CONTROLLED Hearing deficit History of colon cancer REMOVED COLON POLYP + (NO OTHER INTERVENTION NEEDED) Hx of gout Hyperlipidemia Hyperparathyroidism, secondary Hypothyroidism Lumbar radiculopathy Osteoarthritis Positive colorectal cancer screening using Cologuard test Post traumatic stress disorder Prediabetes Scoliosis Seasonal allergies Sleep apnea NO DEVICE (COULD NOT TOLERATE) Temporomandibular joint dysfunction syndrome Surgical History History of cardiac cath - NO STENTS History of cataract surgery History of cervical spinal surgery C3-5 ACDF History of colonoscopy W/ POLYPECTOMY History of difficult intubation C3-5 ACDF= 08/23/17= Grade view 2, Glidescope#4, ETT 8.0 (Head/neck neutral for intubation) at [facility] History of esophagogastroduodenoscopy (EGD) History of lumbar fusion L4-L5 History of right-sided carotid endarterectomy History of tonsillectomy History of tooth extraction History of total knee replacement LEFT History of total shoulder replacement RIGHT/LEFT Family History Sister Breast cancer Cancer Hypertension Brother Myocardial infarction COPD (chronic obstructive pulmonary disease) Hypertension Father Hypertension Mother Hypertension Other No family history of adverse response to anesthesia Denies family history of Ovarian cancer Prostate cancer Diabetes Colorectal cancer Social History Smoking Status: Former smoker Tobacco Type: Cigarettes Age Started Using Tobacco: 14; Age Quit Using Tobacco: 36; packs per day: 2; Second Hand Exposure: No; Do You Dip or Chew Tobacco: No; Hx Alcohol Use: No Hx Substance Use: No Preferred Language: Vietnamese Communication Ability: Effective Visual Impairment: No Limitations Hearing Ability: Use of Hearing Aid [employer] Required: No Beliefs That Will Affect Care: None marital status: / Current Living Situation: Alone current occupational status: retired 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, 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 [employer] 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 How many Children do You have: 6 Feels Safe at Home: Yes Childhood Exposure to Second-Hand Smoke: Yes Diet: regular caffeine: Yes Dental Care, Regularly: No Physical Activity Frequency: Daily Seatbelt Use: always Sunscreen Use: Yes Assistive Devices: None Review of Systems A total of 10 systems reviewed and were otherwise negative Physical Exam Vital Signs Vital Signs - 24 hr 05/27/23 03:20 05/27/23 03:20 05/27/23 03:21 Temperature 36.7 C Temperature Source Oral Pulse Rate 65 66 Respiratory Rate 16 Blood Pressure 191/112 H Blood Pressure Mean 138 Pulse Oximetry 93 92 Oxygen Delivery Method Room Air Room Air Sepsis Recent Fever Within 48 Hours No Sepsis New/Unexplained Change in Mental Status No Sepsis Action Taken by Nursing No Action Required 05/27/23 03:24 05/27/23 03:25 Temperature Temperature Source Pulse Rate 122 H 62 Respiratory Rate Blood Pressure Blood Pressure Mean Pulse Oximetry Oxygen Delivery Method Sepsis Recent Fever Within 48 Hours Sepsis New/Unexplained Change in Mental Status Sepsis Action Taken by Nursing VITALS: Vitals are noted on the nurse's note and reviewed by myself. Vital signs stable. GENERAL: Pleasant gentleman, in no acute distress, nondiaphoretic, well- developed well-nourished. SKIN: The skin was without rashes, erythema, edema, or bruising. There is no tenting of the skin. Capillary reflex less than 2 seconds. HEAD: Normocephalic atraumatic. EARS: External auditory canals clear, tympanic membranes pearly clark without erythema or effusion bilaterally. EYES: Pupils equal round and reactive to light and accommodation. Conjunctivae without injection, sclerae without icterus. Extraocular movements intact. NOSE: Patent, turbinates without inflammation or discharge. No sinus tenderness. MOUTH: Mucous membranes moist. Pharynx without erythema or exudate. Uvula midline. Airway patent. Tongue does not deviate. NECK: Supple without nuchal rigidity. No lymphadenopathy. No thyromegaly. Cervical spine is nontender. No JVD. HEART: Regular rate and rhythm LUNGS: Clear to auscultation bilaterally without wheezes, rales or rhonchi. No retractions or accessory muscle use. ABDOMEN: Positive bowel sounds x 4. Normal tympanic percussion. Soft, nontend er, without masses or organomegaly. Peguero sign negative. No guarding or rebound tenderness. No CVA tenderness MUSCULOSKELETAL: No muscle atrophy, erythema, or edema noted. NEURO: Patient was alert and oriented to person place and time. Normal sensation to light and sharp touch. No focal neurological deficits. Course Administered Medications Discontinued Medications Nitroglycerin (Nitroglycerin 2% Ointment 30gm Tube) 1 inch EXT NOW STA Stop: 05/27/23 03:36 Last Admin: 05/27/23 03:48 Dose: 1 inch Documented By: AISHA Medical Decision Making Medical Records Attestation: I reviewed the patient's medical records. Home Medications Current Medication List: was personally reviewed by me Laboratory Data Attestation: I reviewed the patient's lab results. 05/27/23 03:33 05/27/23 03:33 Lab Results 05/27/23 05/27/23 05/27/23 Range/Units 03:33 03:33 03:33 WBC 6.56 (4.8-10.8) K/ul RBC 3.94 L (4.70-6.10) M/uL Hgb 12.4 L (14.0-18.0) g/dl POC Hgb (14.0-18.0) g/dl Hct 36.8 L (42.0-52.0) % POC Hct (42-52) % MCV 93.4 (80.0-100.0) fL MCH 31.5 (25.0-34.0) pg MCHC 33.7 (32.0-36.0) g/dL RDW Std Deviation 47.9 H (36.4-46.3) fL RDW Coeff of Zelalem 14.1 (11.5-14.5) % Plt Count 198 (130-400) K/uL MPV 10.2 (9.4-12.4) fL Immature Gran % (Auto) 0.2 % Neut % (Auto) 61.0 % Lymph % (Auto) 26.2 % [place] % (Auto) 6.3 % Eos % (Auto) 6.1 % Baso % (Auto) 0.2 % Neut # (Auto) 4.01 (1.40-6.50) K/uL Lymph # (Auto) 1.72 (1.2-3.4) K/uL [place] # (Auto) 0.41 (0.11-0.59) K/uL Eos # (Auto) 0.40 (0-0.50) K/uL Baso # (Auto) 0.01 (0-0.2) K/uL Immature Gran # (Auto) 0.01 (0.01-0.20) K/uL POC Sodium (135-144) mmol/L Sodium 140 (136-145) mmol/L POC Potassium (3.3-5.0) mmol/L Potassium 3.8 (3.5-5.1) mmol/L POC Chloride (101-112) mmol/L Chloride 108 H (98-107) mmol/L Carbon Dioxide 26 (21-32) mmol/L POC Total CO2 (24-31) mmol/L Anion Gap 6 (3-11) POC Anion Gap (16-25) mmol/L POC BUN (7-18) mg/dl BUN 25 H (6-23) mg/dl Creatinine 2.19 H (0.6-1.4) mg/dl POC Creatinine (0.6-1.3) mg/dl Est Cr Clr Drug Dosing Not Reportable Est GFR ( Amer) 31.3 ml/min Est GFR (Non-Af Amer) 27.0 ml/min BUN/Creatinine Ratio 11.4 (10-20) Glucose 96 (70-99(Fasting)) mg/dl POC Glucose (other) (70-99) mg/dl Calcium 9.4 (8.6-10.3) mg/dl POC Ioniz Calcium Aundrea (1.12-1.32) mmol/l Magnesium 1.9 (1.7-2.4) mg/dl Total Bilirubin 0.3 (0.2-1.0) mg/dl AST 10 L (13-39) U/L ALT 6 L (7-52) U/L Alkaline Phosphatase 61 (34-104) U/L Troponin I High Sens 12.1 (0-20) pg/ml B-Natriuretic Peptide (0-100) pg/ml Total Protein 5.8 L (6.0-8.3) gm/dl Albumin 3.4 (3.4-5.0) gm/dl Globulin 2.4 L (2.5-4.0) gm/dl Albumin/Globulin Ratio 1.4 (0.9-2) Lipase 21 (11-82) U/L TSH 4.303 (0.300-4.500) uIu/ml Ethyl Alcohol mg/dL (<10.0) mg/dl 05/27/23 05/27/23 05/27/23 Range/Units 03:38 03:44 03:44 WBC (4.8-10.8) K/ul RBC (4.70-6.10) M/uL Hgb (14.0-18.0) g/dl POC Hgb 12.9 L (14.0-18.0) g/dl Hct (42.0-52.0) % POC Hct 38 L (42-52) % MCV (80.0-100.0) fL MCH (25.0-34.0) pg MCHC (32.0-36.0) g/dL RDW Std Deviation (36.4-46.3) fL RDW Coeff of Zelalem (11.5-14.5) % Plt Count (130-400) K/uL MPV (9.4-12.4) fL Immature Gran % (Auto) % Neut % (Auto) % Lymph % (Auto) % [place] % (Auto) % Eos % (Auto) % Baso % (Auto) % Neut # (Auto) (1.40-6.50) K/uL Lymph # (Auto) (1.2-3.4) K/uL [place] # (Auto) (0.11-0.59) K/uL Eos # (Auto) (0-0.50) K/uL Baso # (Auto) (0-0.2) K/uL Immature Gran # (Auto) (0.01-0.20) K/uL POC Sodium 142 (135-144) mmol/L Sodium (136-145) mmol/L POC Potassium 3.7 (3.3-5.0) mmol/L Potassium (3.5-5.1) mmol/L POC Chloride 105 (101-112) mmol/L Chloride (98-107) mmol/L Carbon Dioxide (21-32) mmol/L POC Total CO2 24 (24-31) mmol/L Anion Gap (3-11) POC Anion Gap 18.0 (16-25) mmol/L POC BUN 24 H (7-18) mg/dl BUN (6-23) mg/dl Creatinine (0.6-1.4) mg/dl POC Creatinine 2.3 H (0.6-1.3) mg/dl Est Cr Clr Drug Dosing Est GFR ( Amer) ml/min Est GFR (Non-Af Amer) ml/min BUN/Creatinine Ratio (10-20) Glucose (70-99(Fasting)) mg/dl POC Glucose (other) 99 (70-99) mg/dl Calcium (8.6-10.3) mg/dl POC Ioniz Calcium Aundrea 1.29 (1.12-1.32) mmol/l Magnesium (1.7-2.4) mg/dl Total Bilirubin (0.2-1.0) mg/dl AST (13-39) U/L ALT (7-52) U/L Alkaline Phosphatase (34-104) U/L Troponin I High Sens (0-20) pg/ml B-Natriuretic Peptide 125 H (0-100) pg/ml Total Protein (6.0-8.3) gm/dl Albumin (3.4-5.0) gm/dl Globulin (2.5-4.0) gm/dl Albumin/Globulin Ratio (0.9-2) Lipase (11-82) U/L TSH (0.300-4.500) uIu/ml Ethyl Alcohol mg/dL < 10.0 (<10.0) mg/dl Imaging Data Attestation: I personally reviewed and interpreted this imaging study as follows: MDM Narrative Prior records/ancillary studies reviewed. Triage Nursing notes reviewed. Additional history obtained from EMS. The patient's history was concerning for chest pain. Differential diagnosis: Etiologies such as cardiac ischemia, aortic dissection, pulmonary embolism, pneumonia, pneumothorax, musculoskeletal, infections, pericarditis, myocarditis, esophageal rupture, gastrointestinal, as well as others were entertained. Physical examination: As above. ER treatment provided: An order was placed for continuous cardiac monitoring. The monitor shows a rate of 60-100 with a sinus rhythm per my interpretation. On the monitor patient went into a brief episode of sinus tach and he converted spontaneously. Nitropaste was placed. Patient took nitroglycerin prior to arrival. On reassessment the patient felt better. Diagnostic interpretation by me: #1 the electrocardiogram was negative for pathologic change. Order for chest pain EKG: Normal sinus, normal intervals, no acute ST-T wave changes. Impression normal sinus rhythm independently interpreted by myself I think arrhythmia is unlikely. EKG shows normal sinus rhythm with no interval abnormalities such as QT prolongation or WPW. There are no findings to suggest Brugada syndrome. Cardiac monitoring in the emergency department reveals no tachycardic or bradycardic dysrhythmia. Hypertrophic cardiomyopathy was considered but there are no clear historical elements pointing toward this. EKG is not suggestive. The QRS voltage is not extremely large and there are no suggestive Q waves. #2 EKG ordered for chest pain EKG: Normal sinus, normal intervals, no acute ST-T wave changes. Impression normal sinus rhythm independently interpreted by myself I think arrhythmia is unlikely. EKG shows normal sinus rhythm with no interval abnormalities such as QT prolongation or WPW. There are no findings to suggest Brugada syndrome. Cardiac monitoring in the emergency department reveals no tachycardic or bradycardic dysrhythmia. Hypertrophic cardiomyopathy was considered but there are no clear historical elements pointing toward this. EKG is not suggestive. The QRS voltage is not extremely large and there are no suggestive Q waves. The labs Independently Interpreted by myself revealed stable creatinine per chart review First troponin is negative. Repeat was ordered Imaging studies: Chest x-ray with no acute consolidation, pneumothorax or free air per my independent interpretation HEART SCORE: Hx: high/mod/low suspicion: 1 ECG: ST depression/nonspecific changes/normal: 0 Age: Greater than 65/45-64/less than 45: 2 Risk factors: (Hypertension, hyperlipidemia, diabetes, coronary disease, tobacco use, cocaine use): 2 Troponin: Greater than 2 times normal limits/1-2 times normal limits/normal: 0 Total: 5 Consultation: A consultation was placed with the hospitalist. The case was discussed and diagnostics were reviewed. The patient was evaluated in the ER for further comfort tment. Exam and history seem consistent with chest pain with concerns for cardiac in etiology. Labs and diagnostics were independent interpreted by myself. Repeat EKG was nonischemic. Medicine was consulted the case was discussed. Patient will be admitted to the medical service. By the evaluation outlined above emergent etiologies such as aortic dissection, pulmonary embolism, pneumonia, pneumothorax, infections, pericarditis, myocarditis, gastrointestinal, as well as others were deemed relatively unlikely. The pt informed about the findings as listed above. All questions were answered and pleased with the treatment. The chart was completed utilizing [employer] Speech voice recognition software. Grammatical errors, random word insertions, pronoun errors, and incomplete se ntences are an occassional consequence of this system due to software limitations, ambient noise, and hardware issues. Any formal questions or concerns about the content, text, or information contained within the body of this dictation should be directly addressed to the physician fws faculty assistant for cla rification. Impression & Plan Chest pain Discharge Plan Visit Data Chief Complaint: Chest Pain ED Provider: Aspen Hein ED Midlevel Provider: Nan Peck Discharge Problem: Chest pain Patient Disposition: Being Evaluated by Hospitalist Condition: Good Forms Stand Alone Forms: My [facility] [place] Prescriptions Prescriptions: No Action levothyroxine 25 mcg tablet 25 mcg PO DAILY Qty: 90 3RF Rx Instructions: at 6 am nicotine 14 mg/24 hr patch 24 hour 1 patch transdermal Q24H Qty: 28 0RF Rx Instructions: [place] Pharmacist says it December 2021 ezetimibe 10 mg tablet 10 mg PO DAILY Qty: 90 3RF fluticasone propion-salmeterol [Advair Diskus] 500-50 mcg/dose blister with device 1 inh inhalation BID Qty: 60 3RF Prolia 60 mg/mL syringe 60 mg subcut Q6MO 365 Days Qty: 2 0RF Rx Instructions: Per [place] pharmacist, it's currently pending finasteride 5 mg tablet 5 mg PO DAILY Qty: 30 11RF Patient Comments: QPM levocetirizine 5 mg tablet 5 mg PO DAILY PRN (Reason: allergy symptoms) Qty: 30 0RF albuterol sulfate 90 mcg/actuation HFA aerosol inhaler 2 puff INHALATION Q6H PRN (Reason: Shortness Of Breath) Qty: 8.5 4RF Rx Instructions: Per [place] Pharmacist, script is . Filled january 09, 2022 montelukast 10 mg tablet 10 mg PO DAILY Qty: 90 1RF tiotropium bromide 2.5 mcg/actuation mist 2 inh inhalation QAM Qty: 4 4RF metoprolol succinate 25 mg tablet extended release 24 hr 50 mg PO DAILY tamsulosin 0.4 mg capsule 0.4 mg PO DAILY Qty: 90 3RF omeprazole 20 mg capsule,delayed release(DR/EC) 20 mg PO DAILY Qty: 90 3RF thiamine HCl (vitamin B1) 100 mg Tablet 100 mg PO QAM allopurinol 100 mg Tablet 200 mg PO QPM Rx Instructions: 2 tabs at bedtime to prevent gout venlafaxine 75 mg Tablet Extended Release 24hr 225 mg PO QAM Rx Instructions: 3 caps every am olopatadine 0.1 % Drops 0 drp OPB DAILY Rx Instructions: [facility] is last filled Nov 2022 pravastatin 10 mg Tablet 10 mg PO QAM Qty: 30 2RF Brilinta 90 mg Tablet 90 mg PO BID Qty: 60 2RF omega-3 fatty acids 1,000 mg Capsule 0 mg PO DAILY Rx Instructions: No order on file from [place] garlic 500 mg Capsule 0 mg PO QPM Rx Instructions: [facility] unable to verify cyanocobalamin (vitamin B-12) 100 mcg Tablet 100 mcg PO BID trazodone 50 mg Tablet 50 mg PO HS PRN (Reason: sleep) amlodipine 10 mg Tablet 10 mg PO DAILY Rx Instructions: Per [facility] Pharmacist, med is on hold until pt requests folic acid 1 mg Tablet 1 mg PO Q OTHER DAY fluticasone propionate [Allergy Relief (fluticasone)] 50 mcg/actuation spray,suspension 1 spray intranasal BID Rx Instructions: administer into each nostril once daily dextromethorphan-guaifenesin 10-100 mg/5 mL liquid 0 ml PO Q6H PRN (Reason: cough) Rx Instructions: [facility], but they have filled plain tablets back in 2019 nitroglycerin [Nitrostat] 0.4 mg tablet, sublingual 0 mg sublingual PRN PRN (Reason: chest pain) Rx Instructions: [facility] unable to verify take if chest pain recurs, if relieved and returns go to ER. If you take one and if goes away and stays away contact your mussel farmer on next office day cholecalciferol (vitamin D3) 25 mcg (1,000 unit) capsule 0 mcg PO DAILY Rx Instructions: Last filled by [place] August 2014 Referrals Referrals: Israel Patel MD [Primary Care Provider] - Chest pain Qualifiers: Chest pain type: unspecified Qualified Code(s): R07.9 - Chest pain, unspecified
[2023-05-27 03:49] LABS: Basophils # (auto) 0.01 K/uL (0-0.2); Basophils % (auto) 0.2 %; Eosinophils % (auto) 6.1 %; Hematocrit (blood only) 36.8 % (42.0-52.0); Hemoglobin 12.4 g/dl (14.0-18.0); Immature Granulocytes # (auto) 0.01 K/uL (0.01-0.20); Immature Granulocytes % (auto) 0.2 %; Lymphocytes # (auto) 1.72 K/uL (1.2-3.4); Lymphocytes % (auto) 26.2 %; Mean Corpuscular Hemoglobin 31.5 pg (25.0-34.0); Mean Corpuscular Hgb Conc 33.7 g/dL (32.0-36.0); Mean Corpuscular Volume 93.4 fL (80.0-100.0); Mean Platelet Volume 10.2 fL (9.4-12.4); Monocytes # (auto) 0.41 K/uL (0.11-0.59); Monocytes % (auto) 6.3 %; Neutrophils # (auto) 4.01 K/uL (1.40-6.50); Platelet Count 198 K/uL (130-400); RDW Coefficient of Variation 14.1 % (11.5-14.5); RDW Standard Deviation 47.9 fL (36.4-46.3); Red Blood Count 3.94 M/uL (4.70-6.10); White Blood Count 6.56 K/ul (4.8-10.8)
[2023-05-27 04:05] LABS: Alanine Aminotransferase 6 U/L (7-52); Albumin Globulin Ratio 1.4 (0.9-2); Albumin Level 3.4 gm/dl (3.4-5.0); Alkaline Phosphatase 61 U/L (34-104); Anion Gap 6 (3-11); Aspartate Aminotransferase 10 U/L (13-39); BUN Creatinine Ratio 11.4 (10-20); Bilirubin,Total 0.3 mg/dl (0.2-1.0); Blood Urea Nitrogen 25 mg/dl (6-23); Calcium 9.4 mg/dl (8.6-10.3); Carbon Dioxide 26 mmol/L (21-32); Chloride 108 mmol/L (98-107); Est GFR (African American) 31.3 ml/min; Globulin 2.4 gm/dl (2.5-4.0); Glucose 96 mg/dl (70-99(Fasting)); Lipase 21 U/L (11-82); Magnesium 1.9 mg/dl (1.7-2.4); Potassium 3.8 mmol/L (3.5-5.1); Sodium 140 mmol/L (136-145); Total Protein 5.8 gm/dl (6.0-8.3)
[2023-05-27 04:11] LABS: Troponin I High Sensitivity 12.1 pg/ml (0-20)
[2023-05-27 04:25] LABS: iSTAT Creatinine 2.3 mg/dl (0.6-1.3); iSTAT Hemoglobin 12.9 g/dl (14.0-18.0); iSTAT Ionized Calcium 1.29 mmol/l (1.12-1.32); iSTAT Potassium 3.7 mmol/L (3.3-5.0)
--- NOTE | 2023-05-27 04:50 | History & Physical Report ---
Date of Service May 27, 2023 Assessment & Plan (1) Chest pain: Plan: Patient present with chest pain reminiscent of previous anginal episode however initial EKG and troponin are negative he is hypertensive urgency blood pressure be controlled with hydralazine continuing home medications of metoprolol & amlodipine. Patient has been on lisinopril hydrochlorothiazide in the past may benefit from reinstituting MERCEDES inhibitor although he does not have any history of a depressed ejection fraction on recent echocardiogram patient's initial high-sensitivity troponin is negative he will be trended with his troponins. if a stress test would be ordered he would need a non treadmill due to his orthopedic complaints he is on observation status with regard to hypertensive urgency the patient does not have a fusiform dilatation of his thoracic aorta to 4 cm last known in December 2022 (2) COPD (chronic obstructive pulmonary disease): Plan: patient has a history of asthma overlap COPD's syndrome. This is chronic and stable. Patient takes Advair Singulair for relief and as needed albuterol pt uses a chest vest at home (3) Hypothyroidism: Plan: chronic and stable hypothyroidism with Synthroid 25 mics (4) Chronic kidney disease: Plan: chronic kidney disease stage III patient suffers from chronic BPH taking finasteride and Proscar patient suffers from gout taking chronic allopurinol therapy History of Present Illness Primary Care Provider: Israel Patel MD 82-year-old male who presents with chest pain rating on his left arm relieved by nitroglycerin. Patient had a similar event in December 2021 at which time he had a STEMI with drug-eluting stent to circumflex artery. Subsequent to that time he has had negative stress tests October 22. Patient has an aspirin sensitivity and is on chronic Brilinta therapy as well as risk modifying medications including metoprolol amlodipine pravastatin and Zetia patient is hypertensive urgency in the emergency department with blood pressure of 192/110 no acute current of injury seen on EKG, nitroglycerin paste was applied attempted lowers blood pressure after chest pain was relieved with sublingual nitro Allergies Allergy/AdvReac Type Severity Reaction Status Date / Time aspirin Allergy Severe hives and Verified 04/27/23 10:35 mouth/throat swelling, hyperventilation ketorolac Allergy Unknown avoids Verified 04/27/23 10:35 secondary to aspirin component levofloxacin AdvReac Severe torn Verified 05/19/23 15:21 tendons oxycodone AdvReac Intermediate MENTAL Verified 04/27/23 10:35 STATUS CHANGES Lyjtypa-TTL-LcE Reductase AdvReac Intermediate severe Verified 04/27/23 10:35 Inhibitor muscle [Trtwjmv-Tiq-Unf Reductase cramps Inhibitor] Home Medications Medication Instructions Recorded Confirmed Type allopurinol 100 mg tablet 200 mg PO QPM 08/10/18 05/19/23 History thiamine HCl (vitamin B1) 100 mg 100 mg PO QAM 08/10/18 05/19/23 History tablet venlafaxine 75 mg tablet,extended 225 mg PO QAM 04/06/20 05/19/23 History release 24 hr finasteride 5 mg tablet 5 mg PO DAILY #30 tabs 07/24/20 05/19/23 Rx levothyroxine 25 mcg tablet 25 mcg PO DAILY #90 tabs 08/11/21 05/19/23 Rx olopatadine 0.1 % eye drops 0 drp OPB DAILY 12/20/21 05/19/23 History pravastatin 10 mg tablet 10 mg PO QAM #30 tabs 12/21/21 05/19/23 Rx ticagrelor 90 mg tablet (Brilinta) 90 mg PO BID #60 tabs 12/21/21 05/19/23 Rx omeprazole 20 mg capsule,delayed 20 mg PO DAILY #90 caps 06/16/22 05/19/23 Rx release ezetimibe 10 mg tablet 10 mg PO DAILY #90 tabs 06/17/22 05/19/23 Rx nicotine 14 mg/24 hr daily 1 patch transdermal Q24H #28 ea 06/17/22 04/27/23 Rx transdermal patch fluticasone 500 mcg-salmeterol 50 1 inh inhalation BID #60 ea 06/25/22 05/19/23 Rx mcg/dose blistr powdr for inhalation (Advair Diskus) albuterol sulfate 90 mcg/actuation 2 puff inhalation Q6H PRN 07/29/22 05/19/23 Rx aerosol inhaler Shortness Of Breath #8.5 grams levocetirizine 5 mg tablet 5 mg PO DAILY PRN allergy symptoms 07/29/22 05/19/23 Rx #30 tabs montelukast 10 mg tablet 10 mg PO DAILY #90 tabs 07/29/22 05/19/23 Rx tiotropium bromide 2.5 2 inh inhalation QAM #4 grams 07/29/22 05/19/23 Rx mcg/actuation mist for inhalation garlic 500 mg capsule 0 mg PO QPM 10/14/22 05/19/23 History omega-3 fatty acids 1,000 mg 0 mg PO DAILY 10/14/22 05/19/23 History capsule tamsulosin 0.4 mg capsule 0.4 mg PO DAILY #90 caps 10/30/22 05/19/23 Rx metoprolol succinate 25 mg 50 mg PO DAILY 01/28/23 05/19/23 History tablet,extended release 24 hr denosumab 60 mg/mL subcutaneous 60 mg subcut Q6MO 365 days #2 mL 03/30/23 05/19/23 Rx syringe (Prolia) amlodipine 10 mg tablet 10 mg PO DAILY 04/22/23 05/19/23 History cholecalciferol (vitamin D3) 25 0 mcg PO DAILY 04/22/23 05/19/23 History mcg (1,000 unit) capsule cyanocobalamin (vitamin B-12) 100 100 mcg PO BID 04/22/23 05/19/23 History mcg tablet dextromethorphan-guaifenesin 10 0 ml PO Q6H PRN cough 04/22/23 05/19/23 History mg-100 mg/5 mL oral liquid fluticasone propionate 50 1 spray intranasal BID 04/22/23 05/19/23 History mcg/actuation nasal spray,suspension (Allergy Relief (fluticasone)) folic acid 1 mg tablet 1 mg PO Q OTHER DAY 04/22/23 05/19/23 History nitroglycerin 0.4 mg sublingual 0 mg sublingual PRN PRN chest pain 04/22/23 05/19/23 History tablet (Nitrostat) trazodone 50 mg tablet 50 mg PO HS PRN sleep 04/22/23 05/19/23 History Past Med/Surg History Medical History Alcohol dependence QUIT 2018 Anxiety and depression Arthritis Asthma using PRN inh multiple x daily at present. recent asthma attack 1 mo ago; completed steroid taper. Benign essential tremor HANDS BPH (benign prostatic hyperplasia) Carotid artery stenosis S/P RIGHT CEA (08/2018) Cervical facet joint syndrome Chronic back pain CKD (chronic kidney disease) stage 3, GFR 30-59 ml/min COPD (chronic obstructive pulmonary disease) Degenerative disc disease Deviated nasal septum GERD (gastroesophageal reflux disease) CONTROLLED Hearing deficit History of colon cancer REMOVED COLON POLYP + (NO OTHER INTERVENTION NEEDED) Hx of gout Hyperlipidemia Hyperparathyroidism, secondary Hypothyroidism Lumbar radiculopathy Osteoarthritis Positive colorectal cancer screening using Cologuard test Post traumatic stress disorder Prediabetes Scoliosis Seasonal allergies Sleep apnea NO DEVICE (COULD NOT TOLERATE) Temporomandibular joint dysfunction syndrome Surgical History History of cardiac cath - NO STENTS History of cataract surgery History of cervical spinal surgery C3-5 ACDF History of colonoscopy W/ POLYPECTOMY History of difficult intubation C3-5 ACDF= 08/23/17= Grade view 2, Glidescope#4, ETT 8.0 (Head/neck neutral for intubation) at [facility] History of esophagogastroduodenoscopy (EGD) History of lumbar fusion L4-L5 History of right-sided carotid endarterectomy History of tonsillectomy History of tooth extraction History of total knee replacement LEFT History of total shoulder replacement RIGHT/LEFT Family History Sister Breast cancer Cancer Hypertension Brother Myocardial infarction COPD (chronic obstructive pulmonary disease) Hypertension Father Hypertension Mother Hypertension Other No family history of adverse response to anesthesia Denies family history of Ovarian cancer Prostate cancer Diabetes Colorectal cancer Social History Smoking Status: Former smoker Tobacco Type: Cigarettes Age Started Using Tobacco: 14; Age Quit Using Tobacco: 36; packs per day: 2; Second Hand Exposure: No; Do You Dip or Chew Tobacco: No; Hx Alcohol Use: No Hx Substance Use: No Preferred Language: Burkinan Communication Ability: Effective Visual Impairment: No Limitations Hearing Ability: Use of Hearing Aid Table Setter Required: No Beliefs That Will Affect Care: None marital status: / Current Living Situation: Alone current occupational status: retired 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, 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 How many Children do You have: 6 Feels Safe at Home: Yes Childhood Exposure to Second-Hand Smoke: Yes Diet: regular caffeine: Yes Dental Care, Regularly: No Physical Activity Frequency: Daily Seatbelt Use: always Sunscreen Use: Yes Assistive Devices: None Review of Systems Review of Systems: mild distress and fatigue no headache, no visual changes no speech or swallowing issues no chest pain, pressure or palpitations baseline shortness of breath, occasional productive cough no abdominal pain, nausea or vomiting, diarrhea or constipation no dysuria, hematuria or frequency b/l knee pain and Achilles pain no back pain, CVA tenderness or radicular pain no bruising, bleeding or rashes no focal signs of weakness or numbness or altered sensation no complaints of anxiety or depression.. Physical Exam Physical Exam: The patient appeared well nourished and normally developed. Vital signs as documented. Head exam is normocephalic atraumatic Neck is without JVD, thyromegaly, or carotid bruits. Lungs are with expiratory wheezes Cardiac exam, Rhythm is regular.. No murmurs, rubs or gallops. Abdominal exam reveals normal bowel sounds, soft non tender, no masses Extremities are nonedematous and both pedal pulses are present Neurologic exam is alert and oriented, no focal loss of strength or sensation Skin is without bruises or rashes Psychologically is without concerns for anxiety or depression.. Results & Data Results & Data Vital Signs (Past 12 Hours) Vital Signs Temp Pulse Resp BP Pulse Ox O2 Del Method 05/27/23 03:25 62 05/27/23 03:24 122 H 05/27/23 03:21 66 05/27/23 03:20 92 Room Air 05/27/23 03:20 98.1 F 65 16 191/112 H 93 Room Air Laboratory Results reviewed cbc prp, troponin reviewed ecg with nsr and no current of injury Code Status & VTE Plan VTE Prophylaxis Plan VTE Prophylaxis will be ordered: Yes PG Care Time/CCT Total # of Minutes Spent Total Time Spent with Patient: Total time spent is greater than 50% in coordination of care (as documented) at patient's floor/unit and/or counseling patient: Coding Level of Care Code 98609 INT INP/OBS CARE 2/55MIN Diagnoses Chest pain R07.9 Chest pain type: unspecified COPD (chronic obstructive pulmonary disease) J44.9 Hypothyroidism E03.9 Chronic kidney disease N18.9 (1) Chest pain Chest pain type: unspecified Qualified Code(s): R07.9 - Chest pain, unspecified
[2023-05-27] MEDS ORDERED: hydrALAZINE HCL 20 MG/ML VIAL IV STA (05:10)
--- NOTE | 2023-05-27 07:02 | XRay Report ---
XR chest 1V portable HISTORY: 82 years-old Male Chest pain, nonspecific COMPARISON: 04/22/2023 TECHNIQUE: AP view of the chest FINDINGS: Reverse shoulder arthroplasties. Cardiomegaly. Atherosclerosis of the aorta. Chronic appearing a left clavicular fracture deformity. No pneumothorax, pleural effusion, airspace consolidation or pulmonar y edema. IMPRESSION: No acute process. ACT 112: Negative or not required by law. The above report was generated using voice recognition software. It may contain grammatical, syntax o r spelling errors. Electronically signed by: Kit Crow M.D. 05/27/2023 7:01 AM
[2023-05-27] MEDS ORDERED: ALBUTEROL HFA 8 GM INHALER INH PRN (07:10)
[2023-05-27] MEDS ORDERED: oxyCODONE HCL IR 5 MG TAB (IMMEDIATE RELEASE) PO PRN (07:10)
[2023-05-27] MEDS ORDERED: ONDANSETRON INJ 2 MG/ML 2 ML VIAL IV PRN (07:10)
[2023-05-27] MEDS ORDERED: hydrALAZINE HCL 20 MG/ML VIAL IV PRN (07:10)
[2023-05-27] MEDS ORDERED: traZODone HCL 50 MG TAB PO PRN (07:10)
[2023-05-27] MEDS ORDERED: ALUMINUM/MAGNESIUM SUSP 30 ML UDC PO PRN (07:10)
--- NOTE | 2023-05-27 07:40 | Electrocardiogram Report ---
Test Reason : Blood Pressure : / mmHG Vent. Rate : 065 BPM Atrial Rate : 065 BPM P-R Int : 144 ms QRS Dur : 080 ms QT Int : 418 ms P-R-T Axes : 050 066 072 degrees QTc Int : 434 ms Normal sinus rhythm Normal ECG When compared with ECG of 22-APR-2023 11:03, No significant change was found Confirmed by Jin Carlson ([id number]) on 05/27/2023 7:39:29 AM Referred By: REFERRED SELF Confirmed By:Jin Carlson
--- NOTE | 2023-05-27 07:40 | Electrocardiogram Report ---
Test Reason : Blood Pressure : / mmHG Vent. Rate : 066 BPM Atrial Rate : 066 BPM P-R Int : 134 ms QRS Dur : 084 ms QT Int : 424 ms P-R-T Axes : 061 065 059 degrees QTc Int : 444 ms Normal sinus rhythm Normal ECG When compared with ECG of 27-MAY-2023 03:17, No significant change was found Confirmed by Jin Carlson ([id number]) on 05/27/2023 7:39:37 AM Referred By: REFERRED SELF Confirmed By:Jin Carlson
[2023-05-27] MEDS: MONTELUKAST SODIUM 10 MG TABLET PO SCH (08:59)
[2023-05-27] MEDS: TICAGRELOR 90 MG TAB PO SCH ×2 (08:59→21:56)
[2023-05-27] MEDS: EZETIMIBE 10 MG TABLET PO SCH (08:59)
[2023-05-27] MEDS: amLODIPine BESYLATE 5 MG TAB PO SCH (08:59)
[2023-05-27] MEDS: THIAMINE HCL 100 MG TAB PO SCH (08:59)
[2023-05-27] MEDS: VENLAFAXINE HCL XR 75 MG CAPXR PO SCH (08:59)
[2023-05-27] MEDS: HEPARIN SOD 5,000 UNIT/0.5 ML VIAL SQ SCH ×2 (09:00→21:56)
[2023-05-27] MEDS: PRAVASTATIN SOD 10 MG TAB PO SCH (09:00)
[2023-05-27] MEDS ORDERED: NON-FORMULARY MEDICATION (Olopatadine 0.1 % Drops) OPB SCH (09:00)
[2023-05-27] MEDS: LEVOTHYROXINE SODIUM 25 MCG TABLET PO SCH (09:00)
[2023-05-27] MEDS: PANTOprazole 40 MG TAB PO SCH (09:00)
[2023-05-27] MEDS: FINASTERIDE 5 MG TAB PO SCH (09:00)
[2023-05-27] MEDS: METOPROLOL SUCC 50MG EXT REL TAB PO SCH (09:00)
[2023-05-27] MEDS: FLUTICASONE/VILANTEROL 200/25MCG 14 PUFFS/INHALER INH SCH (09:01)
[2023-05-27] MEDS: TAMSULOSIN HCL 0.4 MG CAP PO SCH (09:01)
[2023-05-27] MEDS: FLUTICASONE PROPIONATE NA SPR 16 GM BTL SCH ×2 (09:02→20:30)
[2023-05-27] MEDS: ACETAMINOPHEN 500 MG TAB PO PRN (09:12)
[2023-05-27] MEDS ORDERED: ATROPINE SULFATE 0.1 MG/ML 10ML SYR IV ONE (10:05)
[2023-05-27] MEDS ORDERED: DOBUTamine HCL 12.5 MG/ML 20 ML VIAL IV ONE (10:06)
[2023-05-27] MEDS ORDERED: METOPROLOL TARTRATE 1 MG/ML VIAL IV ONE (10:06)
--- NOTE | 2023-05-27 13:56 | XCELERA ---
[id number] \\[email or web address]\[id number]
--- NOTE | 2023-05-27 14:47 | Cardiology Consultation ---
Date of Consultation May 27, 2023 Assessment & Plan (1) Chest pain: Etiology of his chest pain is uncertain, does not appear to be due to occlusive coronary artery disease given that he could achieve 94% maximum predicted heart rate with dobutamine/atropine induced hyperdynamic systolic function and note no chest pain and have no echocardiographic wall motion abnormalities. Although absence of symptoms at a high rate pressure product (BP times heart rate) suggests myocardial ischemia is not the cause of his chest pain, it is possible that episodes of severe hypertension could achieve a higher rate- pressure product and cause myocardial ischemia. Alternatively, noncardiac cause such as cervical disc disease (his pain came on with neck or torso rotation and he had subsequent left arm paresthesia) could be the etiology of his severe/sudden onset chest/arm pain. He does have a history of prior cervical spine surgery. At this point, no further cardiac work-up necessary, but would address labile hypertension (see below). (2) Labile hypertension: Markedly elevated BP this morning but normotensive post dobutamine. As noted, he has a history of labile BP, marked orthostasis and a differential BP between arms, and he has had multiple medication adjustments in the past (was on prazosin, off and on metoprolol, lisinopril, hydrochlorothiazide, amlodipine). Had consider changing amlodipine/metoprolol to labetalol, but given his history of orthostasis and normotensive BP currently would be best to observe overnight and document blood pressure fluctuations as well as any orthostatic change before making any medication changes. Further medication changes based upon overnight hemodynamic measurements. (3) History of orthostatic hypotension: See above. (4) CKD (chronic kidney disease) stage 3, GFR 30-59 ml/min: Creatinine at recent baseline. (5) Coronary artery disease: He has apparently had significant adverse reaction to both aspirin and is on ticagrelor alone. Has some degree of statin intolerance as well but is tolerating low-dose pravastatin. Continue these meds indefinitely. History of Present Illness Reason for Consultation: chest pain/ possible cath? Requesting Physician: Cornell Douglas Attending Physician: Cornell Douglas History of Present Illness 82-year-old man with CAD (inferolateral STEMI 2021 with FERNANDO of latemid circumflex into OM 2, remaining borderline occlusive disease), asthma/COPD, syncope 2020 (felt secondary to bradycardia), labile BP (multiple medication adjustments due to orthostasis with previously documented drop of 50 mmHg supine to standing, right arm BP 20 mm higher than left), chronic renal insufficiency (creatinine 1.72.5 range), who was admitted earlier today after an episode of anterior chest pain radiating down his left arm. Patient underwent dobutamine stress echocardiogram October 2022 prior to Achilles repair, no evidence of ischemia. He had not been having any chest pain at that time. In general, he has some orthopedic limitations, but does not note any routine chest discomfort during activity. However, he had an episode of severe chest pain radiating down the left arm while [facility] was [facility], sent to the ER where ECG and enzymes were negative, offered admission but he declined. No chest pain subsequently until last night when he had severe chest pain radiating down left arm, onset after he got up to go to the bathroom at 2 AM and while he was turning (? head or torso) pain came on abruptly. He noted within minutes the pain started to fade, he took a sublin gual nitroglycerin and the chest and arm pain resolved after 15 minutes, but he continued to have "numbness" in his left arm for some time. Evaluation at [facility] with negative ECG and enzymes x3. Dobutamine stress echocardiogram again performed today, nonspecific ECG changes which were transient, no chest pain or echocardiographic abnormalities. Thus, no evidence of myocardial ischemia at high workload (94% maximum predicted heart rate). Of note, his BP was markedly elevated throughout the morning (167/91 mmHg 191/112 mmHg range), but was normotensive post dobutamine (127/85 mmHg). At the time of my evaluation this afternoon, patient was comfortable and had no somatic complaints. Allergies Allergy/AdvReac Type Severity Reaction Status Date / Time aspirin Allergy Severe hives and Verified 04/27/23 10:35 mouth/throat swelling, hyperventilation ketorolac Allergy Unknown avoids Verified 04/27/23 10:35 secondary to aspirin component levofloxacin AdvReac Severe torn Verified 05/19/23 15:21 tendons oxycodone AdvReac Intermediate MENTAL Verified 04/27/23 10:35 STATUS CHANGES Sgjggoa-EJS-FcX Reductase AdvReac Intermediate severe Verified 04/27/23 10:35 Inhibitor muscle [Imjxfwb-Asg-Rgu Reductase cramps Inhibitor] Home Medications Medication Instructions Recorded Confirmed Type allopurinol 100 mg tablet 200 mg PO QPM 08/10/18 05/27/23 History thiamine HCl (vitamin B1) 100 mg 100 mg PO QAM 08/10/18 05/27/23 History tablet venlafaxine 75 mg tablet,extended 225 mg PO QAM 04/06/20 05/27/23 History release 24 hr finasteride 5 mg tablet 5 mg PO DAILY #30 tabs 07/24/20 05/27/23 Rx levothyroxine 25 mcg tablet 25 mcg PO DAILY #90 tabs 08/11/21 05/27/23 Rx olopatadine 0.1 % eye drops 1 drp OPB DAILY 12/20/21 05/27/23 History pravastatin 10 mg tablet 10 mg PO QAM #30 tabs 12/21/21 05/27/23 Rx ticagrelor 90 mg tablet (Brilinta) 90 mg PO BID #60 tabs 12/21/21 05/27/23 Rx omeprazole 20 mg capsule,delayed 20 mg PO DAILY #90 caps 06/16/22 05/27/23 Rx release ezetimibe 10 mg tablet 10 mg PO DAILY #90 tabs 06/17/22 05/27/23 Rx fluticasone 500 mcg-salmeterol 50 1 inh inhalation BID #60 ea 06/25/22 05/27/23 Rx mcg/dose blistr powdr for inhalation (Advair Diskus) albuterol sulfate 90 mcg/actuation 2 puff inhalation Q6H PRN 07/29/22 05/27/23 Rx aerosol inhaler Shortness Of Breath #8.5 grams levocetirizine 5 mg tablet 5 mg PO DAILY PRN allergy symptoms 07/29/22 05/27/23 Rx #30 tabs montelukast 10 mg tablet 10 mg PO DAILY #90 tabs 07/29/22 05/27/23 Rx tiotropium bromide 2.5 2 inh inhalation QAM #4 grams 07/29/22 05/27/23 Rx mcg/actuation mist for inhalation garlic 500 mg capsule 500 mg PO QPM 10/14/22 05/27/23 History omega-3 fatty acids 1,000 mg 1,000 mg PO DAILY 10/14/22 05/27/23 History capsule tamsulosin 0.4 mg capsule 0.4 mg PO DAILY #90 caps 10/30/22 05/27/23 Rx denosumab 60 mg/mL subcutaneous 60 mg subcut Q6MO 365 days #2 mL 03/30/23 05/27/23 Rx syringe (Prolia) amlodipine 10 mg tablet 10 mg PO DAILY 04/22/23 05/27/23 History cholecalciferol (vitamin D3) 25 1,000 unit PO DAILY 04/22/23 05/27/23 History mcg (1,000 unit) capsule cyanocobalamin (vitamin B-12) 100 100 mcg PO BID 04/22/23 05/27/23 History mcg tablet fluticasone propionate 50 1 spray intranasal BID PRN Allergy 04/22/23 05/27/23 History mcg/actuation nasal Symptoms spray,suspension (Allergy Relief (fluticasone)) folic acid 1 mg tablet 1 mg PO Q OTHER DAY 04/22/23 05/27/23 History nitroglycerin 0.4 mg sublingual 0.4 mg sublingual PRN PRN chest 04/22/23 05/27/23 History tablet (Nitrostat) pain trazodone 50 mg tablet 50 mg PO HS PRN sleep 04/22/23 05/27/23 History Patient History Medical History Alcohol dependence QUIT 2018 Anxiety and depression Arthritis Asthma using PRN inh multiple x daily at present. recent asthma attack 1 mo ago; completed steroid taper. Benign essential tremor HANDS BPH (benign prostatic hyperplasia) Carotid artery stenosis S/P RIGHT CEA (08/2018) Cervical facet joint syndrome Chronic back pain CKD (chronic kidney disease) stage 3, GFR 30-59 ml/min COPD (chronic obstructive pulmonary disease) Degenerative disc disease Deviated nasal septum GERD (gastroesophageal reflux disease) CONTROLLED Hearing deficit History of colon cancer REMOVED COLON POLYP + (NO OTHER INTERVENTION NEEDED) Hx of gout Hyperlipidemia Hyperparathyroidism, secondary Hypothyroidism Lumbar radiculopathy Osteoarthritis Positive colorectal cancer screening using Cologuard test Post traumatic stress disorder Prediabetes Scoliosis Seasonal allergies Sleep apnea NO DEVICE (COULD NOT TOLERATE) Temporomandibular joint dysfunction syndrome Surgical History History of cardiac cath - NO STENTS History of cataract surgery History of cervical spinal surgery C3-5 ACDF History of colonoscopy W/ POLYPECTOMY History of difficult intubation C3-5 ACDF= 08/23/17= Grade view 2, Glidescope#4, ETT 8.0 (Head/neck neutral for intubation) at [facility] History of esophagogastroduodenoscopy (EGD) History of lumbar fusion L4-L5 History of right-sided carotid endarterectomy History of tonsillectomy History of tooth extraction History of total knee replacement LEFT History of total shoulder replacement RIGHT/LEFT Family History Sister Breast cancer Cancer Hypertension Brother Myocardial infarction COPD (chronic obstructive pulmonary disease) Hypertension Father Hypertension Mother Hypertension Other No family history of adverse response to anesthesia Denies family history of Ovarian cancer Prostate cancer Diabetes Colorectal cancer Social History Smoking Status: Former smoker Tobacco Type: Cigarettes Age Started Using Tobacco: 14; Age Quit Using Tobacco: 36; packs per day: 2; Second Hand Exposure: No; Do You Dip or Chew Tobacco: No; Tobacco Cessation Education Requested by Patient: No Hx Alcohol Use: No Hx Substance Use: No Preferred Language: Maltese Communication Ability: Effective Visual Impairment: No Limitations Hearing Ability: Use of Hearing Aid Special Crimes Investigator Required: No Beliefs That Will Affect Care: None marital status: / Current Living Situation: Alone current occupational status: retired 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 BP 128/72 mmHg. Pulse 85 bpm and regular. Skin: no ecchymoses or generalized lesions. HEENT: unremarkable. Neck: Jugular venous pulse at the clavicle at 90 degrees, no carotid bruits. Lungs: Expiratory wheezing worse on forced exhalation. No crackles. No accessory muscle use. Cardiac: regular rhythm, normal S1 and S2, no murmur or gallop. Abdomen: benign. Extremities: no edema, brisk radial and dorsalis pedis pulses. Neurologic: normal affect and conversation, nonfocal. Results & Data Laboratory Results Troponin negative x3. Normal electrolytes, BUN 25, creatinine 2.19. BNP 125. Diagnostic Findings ECG showed sinus rhythm at 65 bpm and was completely unremarkable. Repeat ECG was unchanged. Chest x-ray unremarkable. Dobutamine stress echo showed severe LVH with normal LV systolic function and wall motion, no symptoms or echocardiographic changes at 94% maximum predicted heart rate. PG Care Time/CCT Total # of Minutes Spent Total Time Spent with Patient: Total time spent is greater than 50% in coordination of care (as documented) at patient's floor/unit and/or counseling patient: Coding Level of Care Code 30704 INT INP/OBS CARE MIN Diagnoses Chest pain R07.9 Chest pain type: unspecified Labile hypertension R09.89 History of orthostatic hypotension Z86.79 CKD (chronic kidney disease) stage 3, GFR 30-59 ml/min N18.30 Coronary artery disease I25.10 (1) Chest pain Chest pain type: unspecified Qualified Code(s): R07.9 - Chest pain, unspecified
[2023-05-27] MEDS ORDERED: allopurinoL 100 MG TAB PO SCH (21:00)
[2023-05-28] MEDS: ACETAMINOPHEN 500 MG TAB PO PRN (01:24)
[2023-05-28] MEDS: LEVOTHYROXINE SODIUM 25 MCG TABLET PO SCH (06:38)
[2023-05-28 07:38] LABS: BUN Creatinine Ratio 14.4 (10-20); Calcium 9.4 mg/dl (8.6-10.3); Creatinine Clr Calc Pharmacy 25.7 ml/min; Est GFR (African American) 28.6 ml/min; Est GFR (Non-African American) 24.7 ml/min; Potassium 4.4 mmol/L (3.5-5.1)
[2023-05-28] MEDS ORDERED: UMECLIDINIUM BROMIDE 62.5MCG/BLISTER 7 PUFFS/INHALER INH SCH (09:00)
[2023-05-28] MEDS: PANTOprazole 40 MG TAB PO SCH (10:13)
[2023-05-28] MEDS: amLODIPine BESYLATE 5 MG TAB PO SCH (10:13)
[2023-05-28] MEDS: FINASTERIDE 5 MG TAB PO SCH (10:13)
[2023-05-28] MEDS: MONTELUKAST SODIUM 10 MG TABLET PO SCH (10:14)
[2023-05-28] MEDS: VENLAFAXINE HCL XR 75 MG CAPXR PO SCH (10:14)
[2023-05-28] MEDS: PRAVASTATIN SOD 10 MG TAB PO SCH (10:14)
[2023-05-28] MEDS: TICAGRELOR 90 MG TAB PO SCH (10:14)
[2023-05-28] MEDS: FLUTICASONE PROPIONATE NA SPR 16 GM BTL SCH (10:15)
[2023-05-28] MEDS: EZETIMIBE 10 MG TABLET PO SCH (10:15)
[2023-05-28] MEDS: TAMSULOSIN HCL 0.4 MG CAP PO SCH (10:15)
[2023-05-28] MEDS: METOPROLOL SUCC 50MG EXT REL TAB PO SCH (10:15)
[2023-05-28] MEDS: THIAMINE HCL 100 MG TAB PO SCH (10:15)
[2023-05-28] MEDS: FLUTICASONE/VILANTEROL 200/25MCG 14 PUFFS/INHALER INH SCH (10:16)
[2023-05-28] MEDS: HEPARIN SOD 5,000 UNIT/0.5 ML VIAL SQ SCH ×2 (10:17→10:19)
--- NOTE | 2023-05-28 11:09 | Cardiology Progress Note ---
Date of Service May 28, 2023 Assessment & Plan (1) Chest pain: Plan: Negative dobutamine stress echocardiogram yesterday at 94% maximum predicted heart rate excludes occlusive coronary artery disease as likely potential cause for his symptoms. Given very labile blood pressure with periods of marked hypertension, the possibility of hypertensive urgency/angina secondary to uncontrolled BP remains. At this point, no further cardiac work-up necessary, but would address labile hypertension (see below). (2) Labile hypertension: Plan: Despite use of amlodipine 10 mg daily and metoprolol 50 mg daily, BP remains labile and at times significantly elevated. Given his history of orthostasis and documented periods of low normal blood pressure overnight, doubt that he would tolerate upward titration of these medications. Would recommend that he have a prescription for clonidine 0.1 mg PRN, if he does develop recurrent chest pain he could take a nitroglycerin (for immediate drop in BP) followed by clonidine (for sustained benfit). (3) History of orthostatic hypotension: Plan: None currently, but does show some orthostasis on exam, making titration of vasoactive medications more challenging. (4) CKD (chronic kidney disease) stage 3, GFR 30-59 ml/min: Plan: Creatinine at recent baseline. (5) Coronary artery disease: Plan: He has apparently had significant adverse reaction to both aspirin and is on ticagrelor alone. Has some degree of statin intolerance as well but is tolerating low-dose pravastatin. Continue these meds indefinitely. Admission and Anticipated Discharge Date Admission Date: May 27, 2023 Subjective Uneventful night, no recurrence of chest pain. SBP varied from 112 mmHg to 176 mmHg overnight. Sinus rhythm on telemetry. He has not had recent orthostasis at home, but notes that he gets up very carefully and slowly from seated to standing position. Recent home BPs have been in the 580343/70 mmHg range. Physical Exam Physical Exam: No distress. BP by MD showed marked lability, readings as follows: Left arm initial reading 148/78 mmHg Right arm initial reading 158/86 mmHg Left arm repeat reading 180/80 mmHg seated Left arm 154/84 mmHg standing (no symptoms) Pulse 67 bpm and regular. Skin: no ecchymoses or generalized lesions. HEENT: unremarkable. Neck: Jugular venous pulse at the clavicle at 90 degrees, no carotid bruits. Lungs: Clear on quiet respiration. No crackles. No accessory muscle use. Cardiac: regular rhythm, normal S1 and S2, no murmur or gallop. Abdomen: benign. Extremities: no edema, brisk radial and dorsalis pedis pulses. Neurologic: normal affect and conversation, nonfocal. Results & Data Vital Signs (Past 12 Hours) Vital Signs Temp Pulse Resp BP Pulse Ox O2 Del Method 05/28/23 08:00 97.9 F 67 18 128/66 97 Room Air 05/28/23 04:58 Room Air 05/28/23 02:59 97.9 F 87 20 115/67 93 Room Air 05/28/23 01:35 83 18 94 Room Air Laboratory Results Normal electrolytes, BUN 34, creatinine 2.36 (2.19 yesterday) PG Care Time/CCT Total # of Minutes Spent Total Time Spent with Patient: Total time spent is greater than 50% in coordination of care (as documented) at patient's floor/unit and/or counseling patient: Coding Level of Care Code 83654 SUB INP/OBS CARE 3/50MIN Diagnoses Chest pain R07.9 Chest pain type: unspecified Labile hypertension R09.89 History of orthostatic hypotension Z86.79 CKD (chronic kidney disease) stage 3, GFR 30-59 ml/min N18.30 Coronary artery disease I25.10 (1) Chest pain Chest pain type: unspecified Qualified Code(s): R07.9 - Chest pain, unspecified
--- NOTE | 2023-05-28 11:21 | Nephrology Consultation ---
Date of Consultation May 28, 2023 Assessment & Plan (1) CKD (chronic kidney disease) stage 4, GFR 15-29 ml/min: (2) Hypertension: (3) Ascending aortic aneurysm: (4) Carotid artery stenosis: (5) Asthma-COPD overlap syndrome: (6) Bilateral sensorineural hearing loss: Plan Kidney function is stable at this time. Electrolyte balance is acceptable. 03/23 renal US was negative for obstruction. Patient is clinically volume contracted to euvolemic. Recommend encouraging oral hydration. Will defer adjustment of antihypertensive therapy to Cardiology. No specific Nephrology testing indicated at this time. OK to discharge from Nephrology perspective w/ outpatient follow up 09/23 as previously scheduled. If patient remains hospitalized overnight, then recommend gentle hydration w/ monitoring of PRP. Will sign off. Please call if further assistance is needed History of Present Illness Reason for Consultation: CKD Attending Physician: Cornell Douglas History of Present Illness Mr. Arteaga is an 82 year old white male who is seen at the request of Dr. Douglas for evaluation of ANIYA/CKD. Information for the HPI is obtained from patient interview, review of EMR and is summarized as folllows: Mr. Arteaga has CKD stage G4/A3 with baseline Cr 2.0-2.4 w/ EGFR 25 cc/min. Outpatient evaluation revealed acellular urine sediment, 03/23 renal US was negative for obstruction. Renal impairment has been attributed to hypertensive nephrosclerosis and microvascular disease. Mr. Arteaga's medical history is significant for h/o chronic NSAID use, spinal stenosis of the cervical and lumbar spine, remote tobacco use, asthma, gout, BPH, depression, ALEXSANDRA intolerant of CPAP therapy, PVD s/p R CEA 08/18. He unexpectedly lost his to cancer 08/20. Mr. Arteaga presented to [facility] EMD 05/27/23 for evaluation of angina radiating to his L arm. He was found to have hypertensive urgency w/ SBP 190- 200 mm Hg. Troponin was negative and ECG was negative for acute ischemic change. Dobutamine stress echo was negative for inducible ischemia at 90% MPHR. Patient reports that Cardiology has adjusted his antihypertensive regimen and provided SL NTG. Mr. Arteaga reports that his chest discomfort has resolved and he has remained active this morning by ambulating in his hospital room. Allergies Allergy/AdvReac Type Severity Reaction Status Date / Time aspirin Allergy Severe hives and Verified 04/27/23 10:35 mouth/throat swelling, hyperventilation ketorolac Allergy Unknown avoids Verified 04/27/23 10:35 secondary to aspirin component levofloxacin AdvReac Severe torn Verified 05/19/23 15:21 tendons oxycodone AdvReac Intermediate MENTAL Verified 04/27/23 10:35 STATUS CHANGES Nosywjf-UMZ-KyR Reductase AdvReac Intermediate severe Verified 04/27/23 10:35 Inhibitor muscle [Cgfpero-Hme-Gdq Reductase cramps Inhibitor] Home Medications Medication Instructions Recorded Confirmed Type allopurinol 100 mg tablet 200 mg PO QPM 08/10/18 05/27/23 History thiamine HCl (vitamin B1) 100 mg 100 mg PO QAM 08/10/18 05/27/23 History tablet venlafaxine 75 mg tablet,extended 225 mg PO QAM 04/06/20 05/27/23 History release 24 hr finasteride 5 mg tablet 5 mg PO DAILY #30 tabs 07/24/20 05/27/23 Rx levothyroxine 25 mcg tablet 25 mcg PO DAILY #90 tabs 08/11/21 05/27/23 Rx olopatadine 0.1 % eye drops 1 drp OPB DAILY 12/20/21 05/27/23 History pravastatin 10 mg tablet 10 mg PO QAM #30 tabs 12/21/21 05/27/23 Rx ticagrelor 90 mg tablet (Brilinta) 90 mg PO BID #60 tabs 12/21/21 05/27/23 Rx omeprazole 20 mg capsule,delayed 20 mg PO DAILY #90 caps 06/16/22 05/27/23 Rx release ezetimibe 10 mg tablet 10 mg PO DAILY #90 tabs 06/17/22 05/27/23 Rx fluticasone 500 mcg-salmeterol 50 1 inh inhalation BID #60 ea 06/25/22 05/27/23 Rx mcg/dose blistr powdr for inhalation (Advair Diskus) albuterol sulfate 90 mcg/actuation 2 puff inhalation Q6H PRN 07/29/22 05/27/23 Rx aerosol inhaler Shortness Of Breath #8.5 grams levocetirizine 5 mg tablet 5 mg PO DAILY PRN allergy symptoms 07/29/22 05/27/23 Rx #30 tabs montelukast 10 mg tablet 10 mg PO DAILY #90 tabs 07/29/22 05/27/23 Rx tiotropium bromide 2.5 2 inh inhalation QAM #4 grams 07/29/22 05/27/23 Rx mcg/actuation mist for inhalation garlic 500 mg capsule 500 mg PO QPM 10/14/22 05/27/23 History omega-3 fatty acids 1,000 mg 1,000 mg PO DAILY 10/14/22 05/27/23 History capsule tamsulosin 0.4 mg capsule 0.4 mg PO DAILY #90 caps 10/30/22 05/27/23 Rx denosumab 60 mg/mL subcutaneous 60 mg subcut Q6MO 365 days #2 mL 03/30/23 05/27/23 Rx syringe (Prolia) amlodipine 10 mg tablet 10 mg PO DAILY 04/22/23 05/27/23 History cholecalciferol (vitamin D3) 25 1,000 unit PO DAILY 04/22/23 05/27/23 History mcg (1,000 unit) capsule cyanocobalamin (vitamin B-12) 100 100 mcg PO BID 04/22/23 05/27/23 History mcg tablet fluticasone propionate 50 1 spray intranasal BID PRN Allergy 04/22/23 05/27/23 History mcg/actuation nasal Symptoms spray,suspension (Allergy Relief (fluticasone)) folic acid 1 mg tablet 1 mg PO Q OTHER DAY 04/22/23 05/27/23 History nitroglycerin 0.4 mg sublingual 0.4 mg sublingual PRN PRN chest 04/22/23 05/27/23 History tablet (Nitrostat) pain trazodone 50 mg tablet 50 mg PO HS PRN sleep 04/22/23 05/27/23 History Patient History Medical History (Updated 05/28/23 @ 11:17 by Francesco Thomas MD) Alcohol dependence QUIT 2018 Anxiety and depression Arthritis Asthma using PRN inh multiple x daily at present. recent asthma attack 1 mo ago; completed steroid taper. Benign essential tremor HANDS BPH (benign prostatic hyperplasia) Carotid artery stenosis S/P RIGHT CEA (08/2018) Cervical facet joint syndrome Chronic back pain COPD (chronic obstructive pulmonary disease) Degenerative disc disease Deviated nasal septum GERD (gastroesophageal reflux disease) CONTROLLED Hearing deficit History of colon cancer REMOVED COLON POLYP + (NO OTHER INTERVENTION NEEDED) Hx of gout Hyperlipidemia Hyperparathyroidism, secondary Hypothyroidism Lumbar radiculopathy Osteoarthritis Positive colorectal cancer screening using Cologuard test Post traumatic stress disorder Prediabetes Scoliosis Seasonal allergies Sleep apnea NO DEVICE (COULD NOT TOLERATE) Temporomandibular joint dysfunction syndrome Surgical History History of cardiac cath - NO STENTS History of cataract surgery History of cervical spinal surgery C3-5 ACDF History of colonoscopy W/ POLYPECTOMY History of difficult intubation C3-5 ACDF= 08/23/17= Grade view 2, Glidescope#4, ETT 8.0 (Head/neck neutral for intubation) at [facility] History of esophagogastroduodenoscopy (EGD) History of lumbar fusion L4-L5 History of right-sided carotid endarterectomy History of tonsillectomy History of tooth extraction History of total knee replacement LEFT History of total shoulder replacement RIGHT/LEFT Family History Sister Breast cancer Cancer Hypertension Brother Myocardial infarction COPD (chronic obstructive pulmonary disease) Hypertension Father Hypertension Mother Hypertension Other No family history of adverse response to anesthesia Denies family history of Ovarian cancer Prostate cancer Diabetes Colorectal cancer Social History Smoking Status: Former smoker Tobacco Type: Cigarettes Age Started Using Tobacco: 14; Age Quit Using Tobacco: 36; packs per day: 2; Second Hand Exposure: No; Do You Dip or Chew Tobacco: No; Hx Alcohol Use: No Hx Substance Use: No Preferred Language: Honduran Communication Ability: Effective Visual Impairment: No Limitations Hearing Ability: Use of Hearing Aid Rotor Balancer Required: No Beliefs That Will Affect Care: None marital status: / Current Living Situation: Alone current occupational status: retired 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, 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 How many Children do You have: 6 Feels Safe at Home: Yes Childhood Exposure to Second-Hand Smoke: Yes Diet: regular caffeine: Yes Dental Care, Regularly: No Physical Activity Frequency: Daily Seatbelt Use: always Sunscreen Use: Yes Assistive Devices: Cane, Glasses and Walker Review of Systems Constitutional: no fever Eyes: no worsening vision Ear, Nose, Mouth, Throat: no problem reported Respiratory: no cough and no dyspnea Cardiovascular: no chest pain Gastrointestinal: no abdominal pain, no nausea, no vomiting and no diarrhea/loose stools Genitourinary: no dysuria, no hematuria or no flank pain Physical Exam Constitutional: not in distress Eyes: PERRL, conjunctivae normal, anicteric sclerae ENMT: external ear and nose normal, oropharynx normal Neck: trachea midline, no thyromegaly Respiratory: normal respiratory effort, lungs clear to auscultation Cardiovascular: RRR, no murmur, no edema Gastrointestinal (Abdomen): normal bowel sounds, soft, nontender, no hepatosplenomegaly Skin: no rashes, warm and dry + turgor decreased Neurologic: Speech / Cognition: normal speech and normal cognition KAW Results & Data Vital Signs (Past 12 Hours) Vital Signs Temp Pulse Resp BP Pulse Ox O2 Del Method 05/28/23 08:00 36.6 C 67 18 128/66 97 Room Air 05/28/23 04:58 Room Air 05/28/23 02:59 36.6 C 87 20 115/67 93 Room Air 05/28/23 01:35 83 18 94 Room Air Laboratory Results Laboratory Tests 05/27/23 05/27/23 05/27/23 03:33 15:08 23:03 WBC 6.56 Hgb 12.4 L Hct 36.8 L Plt Count 198 Sodium Potassium Chloride Carbon Dioxide BUN Creatinine Est GFR (Non-Af Amer) Glucose Troponin I High Sens 9.9 9.4 05/28/23 05/28/23 05:59 05:59 WBC Hgb Hct Plt Count Sodium 138 Potassium 4.4 Chloride 108 H Carbon Dioxide 25 BUN 34 H Creatinine 2.36 H Est GFR (Non-Af Amer) 24.7 Glucose 81 Troponin I High Sens 10.0 PG Care Time/CCT Total # of Minutes Spent Total Time Spent with Patient: Total time spent is greater than 50% in coordination of care (as documented) at patient's floor/unit and/or counseling patient: Coding Level of Care Code 23514 IN/OBS CONSULT LVL 4,60M Diagnoses CKD (chronic kidney disease) stage 4, GFR 15-29 ml/min N18.4 Hypertension I10 Ascending aortic aneurysm I71.2 Carotid artery stenosis I65.29 Asthma-COPD overlap syndrome J44.9 Bilateral sensorineural hearing loss H90.3
--- NOTE | 2023-05-28 13:50 | Discharge Summary ---
Date of Service May 28, 2023 Admission HPI Per Admitting Provider 82-year-old male who presents with chest pain rating on his left arm relieved by nitroglycerin. Patient had a similar event in December 2021 at which time he had a STEMI with drug-eluting stent to circumflex artery. Subsequent to that time he has had negative stress tests October 22. Patient has an aspirin sensitivity and is on chronic Brilinta therapy as well as risk modifying medications including metoprolol amlodipine pravastatin and Zetia patient is hypertensive urgency in the emergency department with blood pressure of 192/110 no acute current of injury seen on EKG, nitroglycerin paste was applied attempted lowers blood pressure after chest pain was relieved with sublingual nitro Principal Diagnosis chest pain Discharge Exam The patient appeared well nourished and normally developed. Vital signs as documented. Head exam is normocephalic atraumatic Neck is without JVD, thyromegaly, or carotid bruits. Lungs are with expiratory wheezes Cardiac exam, Rhythm is regular.. No murmurs, rubs or gallops. Abdominal exam reveals normal bowel sounds, soft non tender, no masses Extremities are nonedematous and both pedal pulses are present Neurologic exam is alert and oriented, no focal loss of strength or sensation Skin is without bruises or rashes Psychologically is without concerns for anxiety or depression.. Discharge Data Allergies Allergy/AdvReac Type Severity Reaction Status Date / Time aspirin Allergy Severe hives and Verified 04/27/23 10:35 mouth/throat swelling, hyperventilation ketorolac Allergy Unknown avoids Verified 04/27/23 10:35 secondary to aspirin component levofloxacin AdvReac Severe torn Verified 05/19/23 15:21 tendons oxycodone AdvReac Intermediate MENTAL Verified 04/27/23 10:35 STATUS CHANGES Scgwezm-TIN-OvT Reductase AdvReac Intermediate severe Verified 04/27/23 10:35 Inhibitor muscle [Zjqsnyf-Icq-Skg Reductase cramps Inhibitor] Consultations 05/27/23 04:28 ED Decision to Admit Stat 05/27/23 08:47 Consult Cardiology Routine 05/28/23 09:47 Consult Nephrology Routine Hospital Course (1) Chest pain: Patient present with chest pain reminiscent of previous anginal episode however initial EKG and troponin are negative he is hypertensive urgency blood pressure be controlled with hydralazine continuing home medications of metoprolol & amlodipine. Patient has been on lisinopril hydrochlorothiazide in the past may benefit from reinstituting MERCEDES inhibitor although he does not have any history of a depressed ejection fraction on recent echocardiogram patient's initial high-sensitivity troponin is negative he will be trended with his troponins. if a stress test would be ordered he would need a non treadmill due to his orthopedic complaints he is on observation status with regard to hypertensive urgency the patient does not have a fusiform dilatation of his thoracic aorta to 4 cm last known in December 2022 Discharge plan: given his labile hypertension, will discharge patient on clonidine 0.1mg PRN for elevated SBP over 180. This was explained to the patient who showed understanding. (2) COPD (chronic obstructive pulmonary disease): patient has a history of asthma overlap COPD's syndrome. This is chronic and stable. Patient takes Advair Singulair for relief and as needed albuterol pt uses a chest vest at home (3) Hypothyroidism: chronic and stable hypothyroidism with Synthroid 25 mics (4) Chronic kidney disease: chronic kidney disease stage III patient suffers from chronic BPH taking finasteride and Proscar patient suffers from gout taking chronic allopurinol therapy Total Time Total Time Spent Total Time Spent (In Minutes): 32 Discharge Plan Discharge Items Patient Disposition: Home - Self-Care Reason For Visit: HTN URGENCY, CHEST PAIN Discharge Diagnosis: hypertension Condition on Discharge: Good Activity: Resume your previous activity Non-emergency contact: Primary Care Provider Call non-emergency contact if: you have any medication questions Follow-up/Referrals: Israel Patel MD [Primary Care Provider] - 06/02/23 2:00 pm (Follow up scheduled on 06/02/23 @ 2 pm with Iwona Birch ) Diet: Heart Healthy Addtl Attending Provider Instructions: recommend followup with PCP in 1-2 weeks Recommend clonidine PRN for Blood pressures over 180. Pending Studies at Discharge: No Stand-Alone Forms: [employer], Smoking Cessation Medications and DC Order Prescriptions: New metoprolol succinate 50 mg Tablet Extended Release 24 Hr 50 mg PO DAILY Qty: 0 0RF clonidine HCl 0.1 mg tablet 0.1 mg PO Q8H PRN (Reason: Systolic Blood pressure over 180) Qty: 30 0RF Continued levothyroxine 25 mcg tablet 25 mcg PO DAILY Qty: 90 3RF Rx Instructions: at 6 am ezetimibe 10 mg tablet 10 mg PO DAILY Qty: 90 3RF fluticasone propion-salmeterol [Advair Diskus] 500-50 mcg/dose blister with device 1 inh inhalation BID Qty: 60 3RF Prolia 60 mg/mL syringe 60 mg subcut Q6MO 365 Days Qty: 2 0RF Rx Instructions: Per [place] pharmacist, it's currently pending finasteride 5 mg tablet 5 mg PO DAILY Qty: 30 11RF Patient Comments: QPM levocetirizine 5 mg tablet 5 mg PO DAILY PRN (Reason: allergy symptoms) Qty: 30 0RF albuterol sulfate 90 mcg/actuation HFA aerosol inhaler 2 puff INHALATION Q6H PRN (Reason: Shortness Of Breath) Qty: 8.5 4RF Rx Instructions: Per [place] Pharmacist, script is . Filled january 09, 2022 montelukast 10 mg tablet 10 mg PO DAILY Qty: 90 1RF tiotropium bromide 2.5 mcg/actuation mist 2 inh inhalation QAM Qty: 4 4RF tamsulosin 0.4 mg capsule 0.4 mg PO DAILY Qty: 90 3RF omeprazole 20 mg capsule,delayed release(DR/EC) 20 mg PO DAILY Qty: 90 3RF thiamine HCl (vitamin B1) 100 mg Tablet 100 mg PO QAM allopurinol 100 mg Tablet 200 mg PO QPM Rx Instructions: 2 tabs at bedtime to prevent gout venlafaxine 75 mg Tablet Extended Release 24hr 225 mg PO QAM Rx Instructions: 3 caps every am olopatadine 0.1 % Drops 1 drp OPB DAILY Rx Instructions: Per [place] Pharmacist it is last filled Nov 2022 pravastatin 10 mg Tablet 10 mg PO QAM Qty: 30 2RF Brilinta 90 mg Tablet 90 mg PO BID Qty: 60 2RF omega-3 fatty acids 1,000 mg Capsule 1,000 mg PO DAILY Rx Instructions: No order on file from [place] garlic 500 mg Capsule 500 mg PO QPM Rx Instructions: [place] Pharmacist unable to verify cyanocobalamin (vitamin B-12) 100 mcg Tablet 100 mcg PO BID trazodone 50 mg Tablet 50 mg PO HS PRN (Reason: sleep) amlodipine 10 mg Tablet 10 mg PO DAILY Rx Instructions: Per [place] Pharmacist, med is on hold until pt requests folic acid 1 mg Tablet 1 mg PO Q OTHER DAY fluticasone propionate [Allergy Relief (fluticasone)] 50 mcg/actuation spray,suspension 1 spray intranasal BID PRN (Reason: Allergy Symptoms) Rx Instructions: administer into each nostril once daily nitroglycerin [Nitrostat] 0.4 mg tablet, sublingual 0.4 mg sublingual PRN PRN (Reason: chest pain) Rx Instructions: [place] pharmacist unable to verify take if chest pain recurs, if relieved and returns go to ER. If you take one and if goes away and stays away contact your train brakeman on next office day cholecalciferol (vitamin D3) 25 mcg (1,000 unit) capsule 1,000 unit PO DAILY Rx Instructions: Last filled by [place] August 2014 Discharge Orders: Discharge Order (Routine); Ordered 05/28/23 Ordered By: Cornell Douglas Admission Data Admit Date/Time: 05/27/23 04:45 Attending Provider: Cornell Douglas Admit Provider: Javon Jansen Primary Care Provider: Israel Patel Other Providers: Javon Jansen ; Kev Fried ; Jin Carlson ; Edu Llanos ; Brendan Miller ; Nemesio Disla ; Fernando Lam Jr ; Delmar Bosch ; Dhara Garcia ; Marianela Chacon ; Ronaldo Carrion ; Israel Vines ; Des Saeed ; Stacy Umaña ; Flor Guzman ; Lele Henry ; Randal Zimmer ; Brendan Cortés V. ; Francesco Thomas ; Nga Valentin Kevin C. ; Carlene Power Other Interventions: Discharge Summary Assessment (RN) Last Done: 05/28/23 14:04 Coding Level of Care Code 41000 INP/OBS DISCH >30 MIN Diagnoses Chest pain R07.9 Chest pain type: unspecified COPD (chronic obstructive pulmonary disease) J44.9 Hypothyroidism E03.9 Chronic kidney disease N18.9
== END 2023-05-28 15:09 | disposition home or self-care (01) ==
LOC: ED 03:12 → EDINP 03:12 → 2S 07:05

== ENCOUNTER 2023-10-23 23:32 | Observation (INO) ==
--- NOTE | 2023-10-23 23:42 | Emergency Department Note ---
Impression & Plan Chest pain ED Provider Note HISTORY OF PRESENT ILLNESS: Patient is an 83-year-old male presenting with chest pain. Patient reports that he was laying down for bed tonight when he developed a sudden onset of heavy pressure sensation in the center of his chest. Reports that radiated up into his right jaw and down his right arm. He is on Brilinta and has a history of 2 cardiac stents. He denies any DVT or PE history. Reports 10 minutes after the pain started, he took a sublingual nitroglycerin and 15 minutes later was pain- free. He was nauseous and route to the hospital and was given 4 mg of IV Zofran with EMS. On arrival to the ER, he reports he is chest pain-free. ROS: as above PHYSICAL EXAM: Constitutional: Patient appears in no acute distress. HENT: Head: Normocephalic and atraumatic. Eyes: EOMI, PERRL Mouth/Throat: Mucous membranes moist. Neck: Trachea midline. Neck supple. Cardiovascular: RRR, No murmurs, rubs or gallops. Intact distal pulses. Pulmonary/Chest: No respiratory distress. Breath sounds clear and equal bilaterally. No wheezes or rales. Abdominal: Abdomen soft, no tenderness, rebound or guarding. Musculoskeletal: No edema, tenderness or deformity noted. Skin: Warm and dry. No rash, erythema, pallor or cyanosis Psychiatric: Appropriate mood and affect for situation. Neurological: Alert and keenly responsive. CN II-XII grossly intact, moving all extremities equally and fully. MDM: - Vitals signs stable. - History obtained via patient. Patient presents with chest pain. Patient reports he was lying down for bed tonight when he developed sudden onset of chest pressure and pain. He has a history of cardiac stents and is on Brilinta. He states he took sublingual nitro and 15 minutes later, pain resolved. He is chest pain-free on arrival. - Chronic conditions affecting care: HTN; HLD; CAD (s/p PCI); COPD; hypothyroidism - Differential diagnoses include, but are not limited to: Acute coronary syndrome; pulmonary embolism; dissection; tension pneumothorax; esophageal rupture; pneumonia - Order placed for continuous cardiac monitoring. At this time, monitor showed rate of 72 bpm with normal sinus rhythm, per my interpretation. - External medical records reviewed. EMS run sheet was reviewed. Patient was vitally stable and route. He was given 4 mg of Zofran prehospital. Patient has an anaphylactic allergy to aspirin. Cardiology office visit dated 09/28/2023 was reviewed. Patient has a history of inferiolateral STEMI on 12/20/2021. He has drug-eluting stents to his mid circumflex and OM 2. His last echo was in May 2023 and was negative - EKG interpreted by myself showed normal sinus rhythm. Rate 80 bpm. QTc 426. No acute ischemic changes - Laboratory workup interpreted by myself showed normal WBC; stable electrolytes; CKD; normal troponin - CXR negative for pneumonia, per my interpretation - Heart score 6 (History +2 moderately suspicious; EKG +0; Age +2; Risk factors +2; Initial troponin +0), amounting to a moderate score. - Discussion was had with manager care management about patient's case and need for admission - Hospitalist, Dr. Anderson, consulted for admission - [facility] ASSESSMENT AND PLAN: Diagnosis: chest pain Plan: admit Past Med/Surg History Medical History Hyperparathyroidism, secondary Hypothyroidism (acquired) Back pain Hyperparathyroidism, secondary Prediabetes Positive colorectal cancer screening using Cologuard test Arthritis BPH (benign prostatic hyperplasia) Hypothyroidism History of colon cancer Hx of gout Anxiety and depression Cervical facet joint syndrome COPD (chronic obstructive pulmonary disease) Temporomandibular joint dysfunction syndrome Sleep apnea Seasonal allergies Scoliosis Lumbar radiculopathy Deviated nasal septum Chronic back pain Alcohol dependence Benign essential tremor Carotid artery stenosis Osteoarthritis GERD (gastroesophageal reflux disease) Hearing deficit Post traumatic stress disorder Degenerative disc disease Hyperlipidemia Asthma Surgical History History of cataract surgery History of difficult intubation History of right-sided carotid endarterectomy History of lumbar fusion History of tooth extraction History of tonsillectomy History of cervical spinal surgery History of total shoulder replacement History of total knee replacement History of esophagogastroduodenoscopy (EGD) History of colonoscopy History of cardiac cath Family History Sister Breast cancer Cancer Hypertension Brother Myocardial infarction COPD (chronic obstructive pulmonary disease) Hypertension Father Hypertension Mother Hypertension Other No family history of adverse response to anesthesia Denies family history of Ovarian cancer Prostate cancer Diabetes Colorectal cancer Social History Smoking Status: Never smoker Tobacco Type: Cigarettes Age Started Using Tobacco: 14; Age Quit Using Tobacco: 36; packs per day: 2; Second Hand Exposure: No; Do You Dip or Chew Tobacco: Yes; Hx Alcohol Use: No Hx Substance Use: No Preferred Language: Spanish Communication Ability: Effective Visual Impairment: No Limitations Hearing Ability: Use of Hearing Aid Sql Server Bi Developer Required: No Beliefs That Will Affect Care: None marital status: / Current Living Situation: Alone current occupational status: retired 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, is also a [employer] How many Children do You have: 6 Feels Safe at Home: Yes Childhood Exposure to Second-Hand Smoke: Yes Diet: regular caffeine: Yes Dental Care, Regularly: No Physical Activity Frequency: Does not Exercise Seatbelt Use: always Sunscreen Use: Yes Assistive Devices: Cane, Glasses and Walker Allergies Allergies Allergy/AdvReac Type Severity Reaction Status Date / Time aspirin Allergy Severe hives and Verified 10/24/23 00:13 mouth/throat swelling, hyperventilation ketorolac Allergy Unknown avoids Verified 10/24/23 00:13 secondary to aspirin component levofloxacin AdvReac Severe torn Verified 10/24/23 00:13 tendons oxycodone AdvReac Intermediate MENTAL Verified 10/24/23 00:13 STATUS CHANGES [id number] Reductase AdvReac Intermediate severe Verified 10/24/23 00:13 Inhibitor muscle [[id number] Reductase cramps Inhibitor] Home Meds Home Medications Medication Instructions Recorded Confirmed allopurinol 100 mg tablet 200 mg PO QPM 08/10/18 10/24/23 thiamine HCl (vitamin B1) 100 mg 100 mg PO QAM 08/10/18 10/24/23 tablet garlic 500 mg capsule 500 mg PO QPM 10/14/22 10/24/23 omega-3 fatty acids 1,000 mg 1,000 mg PO DAILY 10/14/22 10/24/23 capsule cyanocobalamin (vitamin B-12) 100 100 mcg PO BID 04/22/23 10/24/23 mcg tablet fluticasone propionate 50 1 spray intranasal BID PRN Allergy 04/22/23 10/24/23 mcg/actuation nasal Symptoms spray,suspension (Allergy Relief (fluticasone)) folic acid 1 mg tablet 1 mg PO Q OTHER DAY 04/22/23 10/24/23 cholecalciferol (vitamin D3) 25 3,000 unit PO DAILY 06/30/23 10/24/23 mcg (1,000 unit) capsule tiotropium bromide 2.5 2 inh inhalation BID 09/21/23 10/24/23 mcg/actuation mist for inhalation benralizumab 30 mg/mL subcutaneous 30 mg subcut .COMPLEX 10/21/23 10/24/23 auto-injector (Fasenra Pen) duloxetine 60 mg capsule,delayed 60 mg PO DAILY 10/21/23 10/24/23 release fluticasone 500 mcg-salmeterol 50 1 inh inhalation DAILY 10/21/23 10/24/23 mcg/dose blistr powdr for inhalation (Advair Diskus) levocetirizine 5 mg tablet 2.5 mg PO DAILY allergy symptoms 10/21/23 10/24/23 olopatadine 0.1 % eye drops 1 drp ophthalmic (eye) DAILY 10/21/23 10/24/23 trazodone 50 mg tablet 50 mg PO HS sleep 10/21/23 10/24/23 Previous Rx's Medication Instructions Recorded finasteride 5 mg tablet 5 mg PO DAILY #30 tabs 07/24/20 pravastatin 10 mg tablet 10 mg PO QAM #30 tabs 12/21/21 ticagrelor 90 mg tablet (Brilinta) 90 mg PO BID #60 tabs 12/21/21 omeprazole 20 mg capsule,delayed 20 mg PO DAILY #90 caps 06/16/22 release ezetimibe 10 mg tablet 10 mg PO DAILY #90 tabs 06/17/22 albuterol sulfate 90 mcg/actuation 2 puff inhalation Q6H PRN 07/29/22 aerosol inhaler Shortness Of Breath #8.5 grams montelukast 10 mg tablet 10 mg PO DAILY #90 tabs 07/29/22 tamsulosin 0.4 mg capsule 0.4 mg PO DAILY #90 caps 10/30/22 denosumab 60 mg/mL subcutaneous 60 mg subcut Q6MO 365 days #2 mL 03/30/23 syringe (Prolia) metoprolol succinate 50 mg 50 mg PO DAILY #0 tabs 05/28/23 tablet,extended release 24 hr levothyroxine 50 mcg tablet 50 mcg PO DAILY #90 tabs 06/29/23 clonidine HCl 0.1 mg tablet 0.1 mg PO TID PRN PRN SBP>180 #90 06/30/23 tabs nitroglycerin 0.4 mg sublingual 0.4 mg sublingual PRN PRN chest 07/08/23 tablet (Nitrostat) pain #25 tabs losartan 50 mg tablet 50 mg PO DAILY #10 tabs 08/04/23 hydrochlorothiazide 12.5 mg tablet 12.5 mg PO DAILY #90 tabs 09/01/23 Results & Data (ED) Vital Signs Vital Signs - 24 hr 10/23/23 23:35 10/23/23 23:41 10/23/23 23:41 Pulse Rate [Apical] 71 Respiratory Rate 16 Respiratory Depth Normal Blood Pressure [Left Arm] 106/64 Blood Pressure Mean [Left Arm] 78 Blood Pressure Position [Left Arm] Semi-fowlers Pulse Oximetry 94 97 Oxygen Delivery Method Room Air Sepsis Recent Fever Within 48 Hours No Sepsis New/Unexplained Change in Mental Status No Sepsis Action Taken by Nursing No Action Required 10/23/23 23:41 Pulse Rate [Apical] Respiratory Rate Respiratory Depth Blood Pressure [Left Arm] Blood Pressure Mean [Left Arm] Blood Pressure Position [Left Arm] Pulse Oximetry 98 Oxygen Delivery Method Room Air Sepsis Recent Fever Within 48 Hours Sepsis New/Unexplained Change in Mental Status Sepsis Action Taken by Nursing Laboratory Data 10/23/23 23:50 10/23/23 23:50 Lab Results 10/23/23 Range/Units 23:50 WBC 7.76 (4.8-10.8) K/ul RBC 4.21 L (4.70-6.10) M/uL Hgb 12.9 L (14.0-18.0) g/dl Hct 39.0 L (42.0-52.0) % MCV 92.6 (80.0-100.0) fL MCH 30.6 (25.0-34.0) pg MCHC 33.1 (32.0-36.0) g/dL RDW Std Deviation 50.7 H (36.4-46.3) fL RDW Coeff of Zelal[place] 14.8 H (11.5-14.5) % Plt Count 200 (130-400) K/uL MPV 11.0 (9.4-12.4) fL Immature Gran % (Auto) 0.4 % Neut % (Auto) 71.8 % Lymph % (Auto) 21.0 % [place] % (Auto) 6.7 % Eos % (Auto) 0.0 % Baso % (Auto) 0.1 % Neut # (Auto) 5.57 (1.40-6.50) K/uL Lymph # (Auto) 1.63 (1.20-3.40) K/uL [place] # (Auto) 0.52 (0.11-0.59) K/uL Eos # (Auto) 0.00 (0.00-0.50) K/uL Baso # (Auto) 0.01 (0.00-0.20) K/uL Immature Gran # (Auto) 0.03 (0.01-0.20) K/uL Sodium 140 (136-145) mmol/L Potassium 3.8 (3.5-5.1) mmol/L Chloride 107 (98-107) mmol/L Carbon Dioxide 27 (21-32) mmol/L Anion Gap 6 (3-11) BUN 35 H (6-23) mg/dl Creatinine 2.77 H (0.6-1.4) mg/dl Est Cr Clr Drug Dosing Not Reportable Est GFR ( Amer) 23.4 ml/min Est GFR (Non-Af Amer) 20.2 ml/min BUN/Creatinine Ratio 12.6 (10-20) Glucose 126 H (70-99(Fasting)) mg/dl Calcium 9.1 (8.6-10.3) mg/dl Total Bilirubin 0.4 (0.2-1.0) mg/dl AST 12 L (13-39) U/L ALT 9 (7-52) U/L Alkaline Phosphatase 47 (34-104) U/L Troponin I High Sens 11.1 (0-20) pg/ml Total Protein 5.7 L (6.0-8.3) gm/dl Albumin 3.4 (3.4-5.0) gm/dl Globulin 2.3 L (2.5-4.0) gm/dl Albumin/Globulin Ratio 1.5 (0.9-2) Lipase 22 (11-82) U/L Discharge Plan Visit Data Chief Complaint: Cardiac Assessment Stated Complaint: CHEST PAIN ED Provider: Sarah Lang Discharge Problem: Chest pain Forms Stand Alone Forms: My [facility] [place] Prescriptions Prescriptions: No Action ezetimibe 10 mg tablet 10 mg PO DAILY Qty: 90 3RF Prolia 60 mg/mL syringe 60 mg subcut Q6MO 365 Days Qty: 2 0RF Rx Instructions: Per [facility] pharmacist, it's currently pending nitroglycerin [Nitrostat] 0.4 mg tablet, sublingual 0.4 mg sublingual PRN PRN (Reason: chest pain) Qty: 25 5RF hydrochlorothiazide 12.5 mg tablet 12.5 mg PO DAILY Qty: 90 3RF finasteride 5 mg tablet 5 mg PO DAILY Qty: 30 11RF Patient Comments: QPM albuterol sulfate 90 mcg/actuation HFA aerosol inhaler 2 puff INHALATION Q6H PRN (Reason: Shortness Of Breath) Qty: 8.5 4RF Rx Instructions: Per [facility] Pharmacist, script is . Filled january 09, 2022 montelukast 10 mg tablet 10 mg PO DAILY Qty: 90 1RF losartan 50 mg tablet 50 mg PO DAILY Qty: 10 1RF clonidine HCl 0.1 mg tablet 0.1 mg PO TID PRN (Reason: PRN SBP>180) Qty: 90 2RF cholecalciferol (vitamin D3) 25 mcg (1,000 unit) capsule 3,000 unit PO DAILY Rx Instructions: Last filled by [facility] August 2014 tiotropium bromide 2.5 mcg/actuation mist 2 inh inhalation BID tamsulosin 0.4 mg capsule 0.4 mg PO DAILY Qty: 90 3RF omeprazole 20 mg capsule,delayed release(DR/EC) 20 mg PO DAILY Qty: 90 3RF duloxetine 60 mg capsule,delayed release(DR/EC) 60 mg PO DAILY Patient Comments: Rx by psych Fasenra Pen 30 mg/mL auto-injector 30 mg subcut .COMPLEX Rx Instructions: 30 mg subcutaneously every 2 months; fluticasone propion-salmeterol [Advair Diskus] 500-50 mcg/dose blister with device 1 inh inhalation DAILY levocetirizine 5 mg tablet 2.5 mg PO DAILY levothyroxine 50 mcg tablet 50 mcg PO DAILY Qty: 90 3RF thiamine HCl (vitamin B1) 100 mg Tablet 100 mg PO QAM allopurinol 100 mg Tablet 200 mg PO QPM Rx Instructions: 2 tabs at bedtime to prevent gout pravastatin 10 mg Tablet 10 mg PO QAM Qty: 30 2RF Brilinta 90 mg Tablet 90 mg PO BID Qty: 60 2RF olopatadine 0.1 % drops 1 drp ophthalmic (eye) DAILY metoprolol succinate 50 mg Tablet Extended Release 24 Hr 50 mg PO DAILY Qty: 0 0RF omega-3 fatty acids 1,000 mg Capsule 1,000 mg PO DAILY Rx Instructions: No order on file from [facility] garlic 500 mg Capsule 500 mg PO QPM Rx Instructions: [facility] Pharmacist unable to verify cyanocobalamin (vitamin B-12) 100 mcg Tablet 100 mcg PO BID folic acid 1 mg Tablet 1 mg PO Q OTHER DAY fluticasone propionate [Allergy Relief (fluticasone)] 50 mcg/actuation spray,suspension 1 spray intranasal BID PRN (Reason: Allergy Symptoms) Rx Instructions: administer into each nostril once daily trazodone 50 mg tablet 50 mg PO Referrals Referrals: Israel Patel MD [Primary Care Provider] -
[2023-10-24 00:04] LABS: Basophils # (auto) 0.01 K/uL (0.00-0.20); Basophils % (auto) 0.1 %; Hemoglobin 12.9 g/dl (14.0-18.0); Immature Granulocytes # (auto) 0.03 K/uL (0.01-0.20); Immature Granulocytes % (auto) 0.4 %; Lymphocytes # (auto) 1.63 K/uL (1.20-3.40); Mean Corpuscular Hemoglobin 30.6 pg (25.0-34.0); Mean Corpuscular Hgb Conc 33.1 g/dL (32.0-36.0); Mean Corpuscular Volume 92.6 fL (80.0-100.0); Monocytes # (auto) 0.52 K/uL (0.11-0.59); Monocytes % (auto) 6.7 %; Neutrophils # (auto) 5.57 K/uL (1.40-6.50); Neutrophils % (auto) 71.8 %; Platelet Count 200 K/uL (130-400); RDW Coefficient of Variation 14.8 % (11.5-14.5); RDW Standard Deviation 50.7 fL (36.4-46.3); Red Blood Count 4.21 M/uL (4.70-6.10); White Blood Count 7.76 K/ul (4.8-10.8)
[2023-10-24 00:19] LABS: Alanine Aminotransferase 9 U/L (7-52); Albumin Globulin Ratio 1.5 (0.9-2); Albumin Level 3.4 gm/dl (3.4-5.0); Alkaline Phosphatase 47 U/L (34-104); Anion Gap 6 (3-11); Aspartate Aminotransferase 12 U/L (13-39); BUN Creatinine Ratio 12.6 (10-20); Bilirubin,Total 0.4 mg/dl (0.2-1.0); Blood Urea Nitrogen 35 mg/dl (6-23); Calcium 9.1 mg/dl (8.6-10.3); Carbon Dioxide 27 mmol/L (21-32); Chloride 107 mmol/L (98-107); Est GFR (African American) 23.4 ml/min; Est GFR (Non-African American) 20.2 ml/min; Globulin 2.3 gm/dl (2.5-4.0); Glucose 126 mg/dl (70-99(Fasting)); Lipase 22 U/L (11-82); Potassium 3.8 mmol/L (3.5-5.1); Sodium 140 mmol/L (136-145); Total Protein 5.7 gm/dl (6.0-8.3)
[2023-10-24 00:26] LABS: Troponin I High Sensitivity 11.1 pg/ml (0-20)
--- NOTE | 2023-10-24 01:44 | History & Physical Report ---
Date of Service October 24, 2023 Assessment & Plan (1) PTSD (post-traumatic stress disorder): (2) Carotid artery stenosis: (3) BPH w urinary obs/LUTS: (4) Coronary artery disease: (5) Chronic kidney disease: (6) Peripheral eosinophilia: (7) Hypertension: (8) Presence of drug coated stent in left circumflex coronary artery: (9) Gout: (10) Hyperlipidemia: (11) Chest pain radiating to jaw: (12) Chest pain radiating to arm: Plan Chest pain radiating to jaw and arm/CAD/history of FERNANDO left circumflex/hypertension- The patient will be admitted to telemetry for serial cardiac enzymes, serial EKG's, cardiac rhythm monitoring and a 2-D echocardiogram with Dopplers. Patient had a negative dobutamine stress echo 05/27/2023 Initial troponin normal Continue Brilinta 90 mg p.o. twice daily, HCTZ 12.5 mg daily, losartan 50 mg daily, metoprolol succinate 50 mg daily Patient reports that he is allergic to aspirin, which causes hives, mouth and throat swelling and hyperventilation Consult cardiology Asthma/COPD overlap syndrome/peripheral eosinophilia- Continue albuterol HFA, Advair, montelukast and Spiriva Patient reports that he has been significantly improved since he has been on Fasenra IV per pulmonology at the lung clinic in [place] He reports finishing a 5-day course of doxycycline and Medrol Dosepak 2 days ago Hyperlipidemia- Continue Zetia and low-dose pravastatin Patient reports significant muscle cramps with other statins PTSD- Continue duloxetine 60 mg daily and trazodone 50 mg at bedtime History of Present Illness Chief Complaint: The patient presents to the emergency department with complaint of acute onset of substernal chest pain radiating up to his jaw and left arm that occurred as he was lying down for sleep this evening Primary Care Provider: Israel Patel MD The patient is an 83-year-old male with past medical history including secondary hyperparathyroidism, hypothyroidism, PTSD, asthma-COPD overlap syndrome, sleep apnea, B12 deficiency, BPH with LUTS, CAD status post FERNANDO in left circumflex artery, gout, CKD, and orthostasis. The patient presents to the emergency de partment due to the acute onset of severe substernal chest pain radiating into his jaw and left arm, that ultimately resolved with active listening sublingual. He also reports that his right arm became severely stiff few minutes later, and then worked its way out as well. He reports that the chest pain similar to his previous heart attack. Allergies Allergy/AdvReac Type Severity Reaction Status Date / Time aspirin Allergy Severe hives and Verified 10/24/23 00:13 mouth/throat swelling, hyperventilation ketorolac Allergy Unknown avoids Verified 10/24/23 00:13 secondary to aspirin component levofloxacin AdvReac Severe torn Verified 10/24/23 00:13 tendons oxycodone AdvReac Intermediate MENTAL Verified 10/24/23 00:13 STATUS CHANGES Tggixkt-LEJ-QmS Reductase AdvReac Intermediate severe Verified 10/24/23 00:13 Inhibitor muscle [Abwwjsl-Ytc-Wuh Reductase cramps Inhibitor] Home Medications Medication Instructions Recorded Confirmed Type allopurinol 100 mg tablet 200 mg PO QPM 08/10/18 10/24/23 History thiamine HCl (vitamin B1) 100 mg 100 mg PO QAM 08/10/18 10/24/23 History tablet finasteride 5 mg tablet 5 mg PO DAILY #30 tabs 07/24/20 10/24/23 Rx pravastatin 10 mg tablet 10 mg PO QAM #30 tabs 12/21/21 10/24/23 Rx ticagrelor 90 mg tablet (Brilinta) 90 mg PO BID #60 tabs 12/21/21 10/24/23 Rx omeprazole 20 mg capsule,delayed 20 mg PO DAILY #90 caps 06/16/22 10/24/23 Rx release ezetimibe 10 mg tablet 10 mg PO DAILY #90 tabs 06/17/22 10/24/23 Rx albuterol sulfate 90 mcg/actuation 2 puff inhalation Q6H PRN 07/29/22 10/24/23 Rx aerosol inhaler Shortness Of Breath #8.5 grams montelukast 10 mg tablet 10 mg PO DAILY #90 tabs 07/29/22 10/24/23 Rx garlic 500 mg capsule 500 mg PO QPM 10/14/22 10/24/23 History omega-3 fatty acids 1,000 mg 1,000 mg PO DAILY 10/14/22 10/24/23 History capsule tamsulosin 0.4 mg capsule 0.4 mg PO DAILY #90 caps 10/30/22 10/24/23 Rx denosumab 60 mg/mL subcutaneous 60 mg subcut Q6MO 365 days #2 mL 03/30/23 10/24/23 Rx syringe (Prolia) cyanocobalamin (vitamin B-12) 100 100 mcg PO BID 04/22/23 10/24/23 History mcg tablet fluticasone propionate 50 1 spray intranasal BID PRN Allergy 04/22/23 10/24/23 History mcg/actuation nasal Symptoms spray,suspension (Allergy Relief (fluticasone)) folic acid 1 mg tablet 1 mg PO Q OTHER DAY 04/22/23 10/24/23 History metoprolol succinate 50 mg 50 mg PO DAILY #0 tabs 05/28/23 10/24/23 Rx tablet,extended release 24 hr levothyroxine 50 mcg tablet 50 mcg PO DAILY #90 tabs 06/29/23 10/24/23 Rx cholecalciferol (vitamin D3) 25 3,000 unit PO DAILY 06/30/23 10/24/23 History mcg (1,000 unit) capsule clonidine HCl 0.1 mg tablet 0.1 mg PO TID PRN PRN SBP>180 #90 06/30/23 10/24/23 Rx tabs nitroglycerin 0.4 mg sublingual 0.4 mg sublingual PRN PRN chest 07/08/23 10/24/23 Rx tablet (Nitrostat) pain #25 tabs losartan 50 mg tablet 50 mg PO DAILY #10 tabs 08/04/23 10/24/23 Rx hydrochlorothiazide 12.5 mg tablet 12.5 mg PO DAILY #90 tabs 09/01/23 10/24/23 Rx tiotropium bromide 2.5 2 inh inhalation BID 09/21/23 10/24/23 History mcg/actuation mist for inhalation benralizumab 30 mg/mL subcutaneous 30 mg subcut .COMPLEX 10/21/23 10/24/23 History auto-injector (Fasenra Pen) duloxetine 60 mg capsule,delayed 60 mg PO DAILY 10/21/23 10/24/23 History release fluticasone 500 mcg-salmeterol 50 1 inh inhalation DAILY 10/21/23 10/24/23 History mcg/dose blistr powdr for inhalation (Advair Diskus) levocetirizine 5 mg tablet 2.5 mg PO DAILY allergy symptoms 10/21/23 10/24/23 History olopatadine 0.1 % eye drops 1 drp ophthalmic (eye) DAILY 10/21/23 10/24/23 History trazodone 50 mg tablet 50 mg PO HS sleep 10/21/23 10/24/23 History Past Med/Surg History Medical History (Updated 10/24/23 @ 02:57 by Peter Anderson MD) Hyperparathyroidism, secondary Hypothyroidism (acquired) Back pain Hyperparathyroidism, secondary Prediabetes Positive colorectal cancer screening using Cologuard test Arthritis BPH (benign prostatic hyperplasia) Hypothyroidism History of colon cancer REMOVED COLON POLYP + (NO OTHER INTERVENTION NEEDED) Hx of gout Anxiety and depression Cervical facet joint syndrome COPD (chronic obstructive pulmonary disease) Temporomandibular joint dysfunction syndrome Sleep apnea NO DEVICE (COULD NOT TOLERATE) Seasonal allergies Scoliosis Lumbar radiculopathy Deviated nasal septum Chronic back pain Alcohol dependence QUIT 2018 Benign essential tremor HANDS Carotid artery stenosis S/P RIGHT CEA (08/2018) Osteoarthritis GERD (gastroesophageal reflux disease) CONTROLLED Hearing deficit Post traumatic stress disorder Degenerative disc disease Hyperlipidemia Asthma using PRN inh multiple x daily at present. recent asthma attack 1 mo ago; completed steroid taper. Surgical History History of cataract surgery History of difficult intubation C3-5 ACDF= 08/23/17= Grade view 2, Glidescope#4, ETT 8.0 (Head/neck neutral for intubation) at [facility] History of right-sided carotid endarterectomy History of lumbar fusion L4-L5 History of tooth extraction History of tonsillectomy History of cervical spinal surgery C3-5 ACDF History of total shoulder replacement RIGHT/LEFT History of total knee replacement LEFT History of esophagogastroduodenoscopy (EGD) History of colonoscopy W/ POLYPECTOMY History of cardiac cath - NO STENTS Family History Sister Breast cancer Cancer Hypertension Brother Myocardial infarction COPD (chronic obstructive pulmonary disease) Hypertension Father Hypertension Mother Hypertension Other No family history of adverse response to anesthesia Denies family history of Ovarian cancer Prostate cancer Diabetes Colorectal cancer Social History Smoking Status: Never smoker Tobacco Type: Cigarettes Age Started Using Tobacco: 14; Age Quit Using Tobacco: 36; packs per day: 2; Second Hand Exposure: No; Do You Dip or Chew Tobacco: Yes; Hx Alcohol Use: No Hx Substance Use: No Preferred Language: [place] Communication Ability: Effective Visual Impairment: No Limitations Hearing Ability: Use of Hearing Aid Inspector Finishing Required: No Beliefs That Will Affect Care: None marital status: / Current Living Situation: Alone current occupational status: retired 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, 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 How many Children do You have: 6 Feels Safe at Home: Yes Childhood Exposure to Second-Hand Smoke: Yes Diet: regular caffeine: Yes Dental Care, Regularly: No Physical Activity Frequency: Does not Exercise Seatbelt Use: always Sunscreen Use: Yes Assistive Devices: Cane, Glasses and Walker Review of Systems Review of Systems: The patient denies palpitations, shortness of breath, dyspnea on exertion, cough, lower extremity swelling, sore throat, fevers, chills, sweats, weight change, fatigue, nausea, vomiting, diarrhea , constipation, abdominal pain, pelvic pain, blood in urine or stool, dysuria, urinary frequency or urgency, lightheadedness, dizziness, headache, memory loss, loss of consciousness, rash, abnormal bruising or bleeding, imbalance, focal or generalized weakness, numbness or tingling in legs, generalized arthralgias or myalgias, back or neck pain, or night sweats. The review of systems is otherwise negative other than for that already noted above, and at least 10 systems have been reviewed. Physical Exam Physical Exam: The patient is awake, alert and oriented 3, well developed and well nourished, normocephalic and atraumatic, lying in bed and in no acute distress. HEENT--PERRL, EOMI, mucous membranes and oropharynx normal. Neck--supple. No JVD. No bruits. Thyroid normal, trachea midline, no adenopathy. Heart--normal S1 and S2. No murmurs, rubs or gallops. Lungs--a few wheezes bilaterally, overall diminished air sounds. No respiratory distress, no accessory muscle use. Abdomen--normal bowel sounds and soft. Nontender. Nondistended Extremities-- No edema. Dermatologic--normal skin turgor, normal color, no abnormal lymph nodes, no rash. Neurologic--cranial nerves II through XII grossly intact. Rheumatologic--normal range of motion. Psychiatric--normal affect. Results & Data Results & Data Vital Signs (Past 12 Hours) Vital Signs Pulse Resp BP Pulse Ox O2 Del Method 10/23/23 23:41 98 Room Air 10/23/23 23:41 71 16 106/64 97 Room Air 10/23/23 23:41 94 Laboratory Results Laboratory Results WBC 7.76 K/ul (4.8-10.8) 10/23/23 23:50 RBC 4.21 M/uL (4.70-6.10) L 10/23/23 23:50 Hgb 12.9 g/dl (14.0-18.0) L 10/23/23 23:50 Hct 39.0 % (42.0-52.0) L 10/23/23 23:50 MCV 92.6 fL (80.0-100.0) 10/23/23 23:50 MCH 30.6 pg (25.0-34.0) 10/23/23 23:50 MCHC 33.1 g/dL (32.0-36.0) 10/23/23 23:50 RDW Std Deviation 50.7 fL (36.4-46.3) H 10/23/23 23:50 RDW Coeff of Zelalem 14.8 % (11.5-14.5) H 10/23/23 23:50 Plt Count 200 K/uL (130-400) 10/23/23 23:50 MPV 11.0 fL (9.4-12.4) 10/23/23 23:50 Immature Gran % (Auto) 0.4 % 10/23/23 23:50 Neut % (Auto) 71.8 % 10/23/23 23:50 Lymph % (Auto) 21.0 % 10/23/23 23:50 Mccormick % (Auto) 6.7 % 10/23/23 23:50 Eos % (Auto) 0.0 % 10/23/23 23:50 Baso % (Auto) 0.1 % 10/23/23 23:50 Neut # (Auto) 5.57 K/uL (1.40-6.50) 10/23/23 23:50 Lymph # (Auto) 1.63 K/uL (1.20-3.40) 10/23/23 23:50 Mccormick # (Auto) 0.52 K/uL (0.11-0.59) 10/23/23 23:50 Eos # (Auto) 0.00 K/uL (0.00-0.50) 10/23/23 23:50 Baso # (Auto) 0.01 K/uL (0.00-0.20) 10/23/23 23:50 Immature Gran # (Auto) 0.03 K/uL (0.01-0.20) 10/23/23 23:50 Sodium 140 mmol/L (136-145) 10/23/23 23:50 Potassium 3.8 mmol/L (3.5-5.1) 10/23/23 23:50 Chloride 107 mmol/L (98-107) 10/23/23 23:50 Carbon Dioxide 27 mmol/L (21-32) 10/23/23 23:50 Anion Gap 6 (3-11) 10/23/23 23:50 BUN 35 mg/dl (6-23) H 10/23/23 23:50 Creatinine 2.77 mg/dl (0.6-1.4) H 10/23/23 23:50 Est Cr Clr Drug Dosing Not Reportable 10/23/23 23:50 Est GFR ( Amer) 23.4 ml/min 10/23/23 23:50 Est GFR (Non-Af Amer) 20.2 ml/min 10/23/23 23:50 BUN/Creatinine Ratio 12.6 (10-20) 10/23/23 23:50 Glucose 126 mg/dl (70-99(Fasting)) H 10/23/23 23:50 Calcium 9.1 mg/dl (8.6-10.3) 10/23/23 23:50 Total Bilirubin 0.4 mg/dl (0.2-1.0) 10/23/23 23:50 AST 12 U/L (13-39) L 10/23/23 23:50 ALT 9 U/L (7-52) 10/23/23 23:50 Alkaline Phosphatase 47 U/L (34-104) 10/23/23 23:50 Troponin I High Sens 11.1 pg/ml (0-20) 10/23/23 23:50 Total Protein 5.7 gm/dl (6.0-8.3) L 10/23/23 23:50 Albumin 3.4 gm/dl (3.4-5.0) 10/23/23 23:50 Globulin 2.3 gm/dl (2.5-4.0) L 10/23/23 23:50 Albumin/Globulin Ratio 1.5 (0.9-2) 10/23/23 23:50 Lipase 22 U/L (11-82) 10/23/23 23:50 Code Status & VTE Plan Code Status Full code VTE Prophylaxis Plan VTE Prophylaxis will be ordered: Yes PG Care Time/CCT Total # of Minutes Spent Total Time Spent with Patient: Total time spent is greater than 50% in coordination of care (as documented) at patient's floor/unit and/or counseling patient: Coding Level of Care Code 50247 INT INP/OBS CARE 3/75MIN Diagnoses PTSD (post-traumatic stress disorder) F43.10 Carotid artery stenosis I65.29 BPH w urinary obs/LUTS N40.1; N13.8 Coronary artery disease I25.10 Chronic kidney disease N18.9 Peripheral eosinophilia D72.19 Hypertension I10 Presence of drug coated stent in left circumflex coronary artery Z95.5 Gout M10.9 Hyperlipidemia E78.5 Chest pain radiating to jaw R07.9 Chest pain radiating to arm R07.89
--- NOTE | 2023-10-24 03:05 | Billing Data ---
Date of Service October 24, 2023 Coding Level of Care Code 48126 INT INP/OBS CARE
[2023-10-24] MEDS ORDERED: cloNIDine HCL 0.1 MG TAB PO PRN (05:13)
[2023-10-24] MEDS ORDERED: NITROGLYCERIN SL 0.4 MG/TAB TAB SL PRN (05:13)
[2023-10-24] MEDS ORDERED: ACETAMINOPHEN 325 MG TAB PO PRN (05:13)
[2023-10-24] MEDS ORDERED: ONDANSETRON INJ 2 MG/ML 2 ML VIAL IV PRN (05:13)
[2023-10-24] MEDS ORDERED: ALBUTEROL HFA 8 GM INHALER INH PRN (05:13)
[2023-10-24] MEDS ORDERED: LEVOTHYROXINE SODIUM 50 MCG TABLET PO SCH (06:30)
--- NOTE | 2023-10-24 08:42 | XRay Report ---
XR chest 1V portable HISTORY: Chest pain, nonspecific COMPARISON: Chest 05/27/2023. FINDINGS: No pneumothorax. No pleural effusions. The lungs are clear. The heart is normal in size. St able bilateral hilar prominence. Bilateral total shoulder arthroplasties an old left clavicle fractur e again noted. IMPRESSION: No significant change compared to the prior study. No acute process. ACT 112: Negative or not required by law. Electronically signed by: Nikko Leggett M.D. 10/24/2023 8:40 AM
[2023-10-24 08:48] LABS: BUN Creatinine Ratio 16.7 (10-20); Calcium 9.2 mg/dl (8.6-10.3); Creatinine Clr Calc Pharmacy 25.6 ml/min; Est GFR (African American) 28.9 ml/min; Est GFR (Non-African American) 24.9 ml/min; Potassium 4.3 mmol/L (3.5-5.1)
--- NOTE | 2023-10-24 08:48 | Cardiology Consultation ---
Date of Consultation October 24, 2023 Assessment & Plan (1) Chest pain: (2) Coronary artery disease: (3) Chronic kidney disease: (4) Hypertension: Plan 1. Chest pain: His chest pain does not really sound anginal (it occurred at rest) and it lasted long enough that 1 would expect some elevation in troponin or more significant electrocardiographic changes if this were due to myocardial ischemia. He does however have known coronary disease so it is possible. 2. Coronary disease: He has known coronary artery disease including stent placed in the past but he has been on appropriate risk factor modification. A relatively recent stress test was negative for ischemia. He has had a number of admissions for what appears to be noncardiac chest pain. Without exertional symptoms I do not know that we should consider stress testing or invasive evaluation at this time. 3. Chronic kidney disease: His kidney function appears to be a little bit worse this admission but is in the range that we have seen before. He does follow with nephrology as an outpatient. 4. Hypertension: His blood pressure appears to be quite labile. He is on clonidine, hydrochlorothiazide, low-dose losartan and low-dose metoprolol for this. His heart rate is typically in a reasonable range. I would consider stopping clonidine, although I think he is to take it as needed, (unless there is some other reason he is on it) and increasing metoprolol. With his worsening creatinine there may be consideration to discontinue losartan (his LV function is normal so there is no cardiac reason to continue it) but he is followed by nephrology so I will leave that up to their discretion. History of Present Illness Reason for Consultation: Chest pain Attending Physician: Zaki Willams MD History of Present Illness This is an 83-year-old male primarily followed by Dr. Carrion in our office. He has a history of hypertension, chronic kidney disease, dyslipidemia as well as coronary artery disease and PAD. He presented with an inferolateral STEMI on December 20, 2021 and had stent placement to the mid circumflex and the second obtuse marginal. He also had disease in the RCA but it was not treated. He has been maintained on a platelet inhibition (ticagrelor) as well as Zetia and pravastatin, although there is a note that he has a statin intolerance. As of February 02, 2023 his total cholesterol was quite good at 148 his HDL cholesterol was 53 therefore his non-HDL cholesterol was less than 100 which is fairly good. He did present to the emergency room in April 2023 with chest and neck discomfort as well as May 2023 with similar discomfort. He did have a dobutamine stress echo May 27, 2023 which was negative for ischemia at 90% of his maximal predicted heart rate. His echo showed no wall motion abnormalities with severe left ventricular hypertrophy. He presented to the emergency room on the evening of October 23, 2023 with chest pressure with radiation to his right arm and right jaw. He took sublingual nitroglycerin about 10 minutes after the pain started and within about 15 minutes had resolution of his discomfort. He did have some nausea and route to the hospital but was pain-free upon arrival. His presenting electrocardiogram shows sinus rhythm at 80 bpm with nonspecific anterolateral ST-T abnormalities. Of note in May 2023 he did not have these ST-T abnormalities although in November 2022 he did. There appear to be no acute changes therefore. Initial studies include a chest x-ray which does not seem to be read yet but but my review it looks quite normal. He also had high- sensitivity troponin measurements, the first was 11.1, the second this morning is 10.5. His creatinine is generally in the 2 range, it is somewhat higher than that this admission. His blood pressure has for the most part been quite elevated this admission, in the past it is often elevated although seems quite labile as well. Allergies Allergy/AdvReac Type Severity Reaction Status Date / Time aspirin Allergy Severe hives and Verified 10/24/23 00:13 mouth/throat swelling, hyperventilation ketorolac Allergy Unknown avoids Verified 10/24/23 00:13 secondary to aspirin component levofloxacin AdvReac Severe torn Verified 10/24/23 00:13 tendons oxycodone AdvReac Intermediate MENTAL Verified 10/24/23 00:13 STATUS CHANGES Ykeulxh-NUO-MbA Reductase AdvReac Intermediate severe Verified 10/24/23 00:13 Inhibitor muscle [Vrbzlpt-Idl-Amc Reductase cramps Inhibitor] Home Medications Medication Instructions Recorded Confirmed Type allopurinol 100 mg tablet 200 mg PO QPM 08/10/18 10/24/23 History thiamine HCl (vitamin B1) 100 mg 100 mg PO QAM 08/10/18 10/24/23 History tablet finasteride 5 mg tablet 5 mg PO DAILY #30 tabs 07/24/20 10/24/23 Rx pravastatin 10 mg tablet 10 mg PO QAM #30 tabs 12/21/21 10/24/23 Rx ticagrelor 90 mg tablet (Brilinta) 90 mg PO BID #60 tabs 12/21/21 10/24/23 Rx omeprazole 20 mg capsule,delayed 20 mg PO DAILY #90 caps 06/16/22 10/24/23 Rx release ezetimibe 10 mg tablet 10 mg PO DAILY #90 tabs 06/17/22 10/24/23 Rx albuterol sulfate 90 mcg/actuation 2 puff inhalation Q6H PRN 07/29/22 10/24/23 Rx aerosol inhaler Shortness Of Breath #8.5 grams montelukast 10 mg tablet 10 mg PO DAILY #90 tabs 07/29/22 10/24/23 Rx garlic 500 mg capsule 500 mg PO QPM 10/14/22 10/24/23 History omega-3 fatty acids 1,000 mg 1,000 mg PO DAILY 10/14/22 10/24/23 History capsule tamsulosin 0.4 mg capsule 0.4 mg PO DAILY #90 caps 10/30/22 10/24/23 Rx denosumab 60 mg/mL subcutaneous 60 mg subcut Q6MO 365 days #2 mL 03/30/23 10/24/23 Rx syringe (Prolia) cyanocobalamin (vitamin B-12) 100 100 mcg PO BID 04/22/23 10/24/23 History mcg tablet fluticasone propionate 50 1 spray intranasal BID PRN Allergy 04/22/23 10/24/23 History mcg/actuation nasal Symptoms spray,suspension (Allergy Relief (fluticasone)) folic acid 1 mg tablet 1 mg PO Q OTHER DAY 04/22/23 10/24/23 History levothyroxine 50 mcg tablet 50 mcg PO DAILY #90 tabs 06/29/23 10/24/23 Rx cholecalciferol (vitamin D3) 25 3,000 unit PO DAILY 06/30/23 10/24/23 History mcg (1,000 unit) capsule clonidine HCl 0.1 mg tablet 0.1 mg PO TID PRN PRN SBP>180 #90 06/30/23 10/24/23 Rx tabs nitroglycerin 0.4 mg sublingual 0.4 mg sublingual PRN PRN chest 07/08/23 10/24/23 Rx tablet (Nitrostat) pain #25 tabs losartan 50 mg tablet 50 mg PO DAILY #10 tabs 08/04/23 10/24/23 Rx hydrochlorothiazide 12.5 mg tablet 12.5 mg PO DAILY #90 tabs 09/01/23 10/24/23 Rx tiotropium bromide 2.5 2 inh inhalation BID 09/21/23 10/24/23 History mcg/actuation mist for inhalation benralizumab 30 mg/mL subcutaneous 30 mg subcut .COMPLEX 10/21/23 10/24/23 History auto-injector (Fasenra Pen) duloxetine 60 mg capsule,delayed 60 mg PO DAILY 10/21/23 10/24/23 History release fluticasone 500 mcg-salmeterol 50 1 inh inhalation DAILY 10/21/23 10/24/23 History mcg/dose blistr powdr for inhalation (Advair Diskus) levocetirizine 5 mg tablet 2.5 mg PO DAILY allergy symptoms 10/21/23 10/24/23 History olopatadine 0.1 % eye drops 1 drp ophthalmic (eye) DAILY 10/21/23 10/24/23 History trazodone 50 mg tablet 50 mg PO HS sleep 10/21/23 10/24/23 History metoprolol succinate 50 mg 100 mg (2 x 50 mg) PO DAILY #0 tabs 10/24/23 10/24/23 Rx tablet,extended release 24 hr Patient History Medical History Hyperparathyroidism, secondary Hypothyroidism (acquired) Back pain Hyperparathyroidism, secondary Prediabetes Positive colorectal cancer screening using Cologuard test Arthritis BPH (benign prostatic hyperplasia) Hypothyroidism History of colon cancer REMOVED COLON POLYP + (NO OTHER INTERVENTION NEEDED) Hx of gout Anxiety and depression Cervical facet joint syndrome COPD (chronic obstructive pulmonary disease) Temporomandibular joint dysfunction syndrome Sleep apnea NO DEVICE (COULD NOT TOLERATE) Seasonal allergies Scoliosis Lumbar radiculopathy Deviated nasal septum Chronic back pain Alcohol dependence QUIT 2018 Benign essential tremor HANDS Carotid artery stenosis S/P RIGHT CEA (08/2018) Osteoarthritis GERD (gastroesophageal reflux disease) CONTROLLED Hearing deficit Post traumatic stress disorder Degenerative disc disease Hyperlipidemia Asthma using PRN inh multiple x daily at present. recent asthma attack 1 mo ago; completed steroid taper. Surgical History History of cataract surgery History of difficult intubation C3-5 ACDF= 08/23/17= Grade view 2, Glidescope#4, ETT 8.0 (Head/neck neutral for intubation) at [facility] History of right-sided carotid endarterectomy History of lumbar fusion L4-L5 History of tooth extraction History of tonsillectomy History of cervical spinal surgery C3-5 ACDF History of total shoulder replacement RIGHT/LEFT History of total knee replacement LEFT History of esophagogastroduodenoscopy (EGD) History of colonoscopy W/ POLYPECTOMY History of cardiac cath - NO STENTS Family History Sister Breast cancer Cancer Hypertension Brother Myocardial infarction COPD (chronic obstructive pulmonary disease) Hypertension Father Hypertension Mother Hypertension Other No family history of adverse response to anesthesia Denies family history of Ovarian cancer Prostate cancer Diabetes Colorectal cancer Social History Smoking Status: Never smoker Tobacco Type: Smokeless Tobacco (Dip or Chew) Age Started Using Tobacco: 14; Age Quit Using Tobacco: 36; packs per day: 2; Second Hand Exposure: No; Do You Dip or Chew Tobacco: Yes; Hx Alcohol Use: No Hx Substance Use: No Preferred Language: Stateless Communication Ability: Effective Visual Impairment: No Limitations Hearing Ability: Use of Hearing Aid Media Sales Consultant Required: No Beliefs That Will Affect Care: None marital status: / Current Living Situation: Alone current occupational status: retired 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 HEENT: Unremarkable Neck: No jugular venous distention, carotid pulses are normal and equal bilaterally without bruits. Pulmonary: Clear to auscultation bilaterally. Cardiac: Regular rhythm with no murmur, gallop or rub. Abdomen: Soft, nontender with normal bowel sounds. Extremities: No edema. Distal pulses intact. Neurologic: No focal findings. Gait is steady. Skin: No rash, ecchymoses or petechiae. Results & Data Vital Signs (Past 12 Hours) Vital Signs Temp Pulse Pulse Resp BP BP BP 10/24/23 08:04 36.9 C 58 L 18 163/98 H 10/24/23 04:25 63 10/24/23 04:15 10/24/23 04:15 36.6 C 70 18 173/71 H 10/24/23 03:59 67 15 167/85 H 10/24/23 03:00 66 16 167/85 H 10/24/23 01:41 68 18 145/74 H 10/23/23 23:41 10/23/23 23:41 71 16 106/64 10/23/23 23:41 10/23/23 23:40 71 Pulse Ox O2 Del Method 10/24/23 08:04 92 Room Air 10/24/23 04:25 10/24/23 04:15 Room Air 10/24/23 04:15 95 Room Air 10/24/23 03:59 92 Room Air 10/24/23 03:00 94 Room Air 10/24/23 01:41 96 Room Air 10/23/23 23:41 98 Room Air 10/23/23 23:41 97 Room Air 10/23/23 23:41 94 10/23/23 23:40 Laboratory Results Cardiac Enzymes 10/23/23 10/24/23 Range/Units 23:50 07:59 AST 12 L (13-39) U/L Troponin I High Sens 11.1 10.5 (0-20) pg/ml CBC 10/23/23 Range/Units 23:50 WBC 7.76 (4.8-10.8) K/ul RBC 4.21 L (4.70-6.10) M/uL Hgb 12.9 L (14.0-18.0) g/dl Hct 39.0 L (42.0-52.0) % Plt Count 200 (130-400) K/uL Neut # (Auto) 5.57 (1.40-6.50) K/uL Lymph # (Auto) 1.63 (1.20-3.40) K/uL [place] # (Auto) 0.52 (0.11-0.59) K/uL Eos # (Auto) 0.00 (0.00-0.50) K/uL Baso # (Auto) 0.01 (0.00-0.20) K/uL Comprehensive Metabolic Panel 10/23/23 10/24/23 Range/Units 23:50 07:59 Sodium 140 139 (136-145) mmol/L Potassium 3.8 4.3 (3.5-5.1) mmol/L Chloride 107 106 (98-107) mmol/L Carbon Dioxide 27 28 (21-32) mmol/L BUN 35 H 39 H (6-23) mg/dl Creatinine 2.77 H 2.33 H D (0.6-1.4) mg/dl Glucose 126 H 110 H (70-99(Fasting)) mg/dl Calcium 9.1 9.2 (8.6-10.3) mg/dl AST 12 L (13-39) U/L ALT 9 (7-52) U/L Alkaline Phosphatase 47 (34-104) U/L Total Protein 5.7 L (6.0-8.3) gm/dl Albumin 3.4 (3.4-5.0) gm/dl Intake and Output 10/23/23 10/24/23 10/24/23 22:59 06:59 14:59 Other: Weight 79.968 kg Weight Measurement Method Built in [facility] Care Time/CCT Total # of Minutes Spent Total Time Spent with Patient: Total time spent is greater than 50% in coordination of care (as documented) at patient's floor/unit and/or counseling patient: Coding Level of Care Code 31894 INT INP/OBS CARE 2/55MIN Diagnoses Precordial pain R07.2 Chest pain type: precordial pain Coronary artery disease involving [place] coronary artery of [place] heart, unspecified whether angina present I25.10 Associated angina: unspecified whether angina present Coronary Disease-Associated Artery/Lesion type: [place] artery [place] vs. transplanted heart: [place] heart Chronic kidney disease N18.9 Hypertension, unspecified type I10 Hypertension type: unspecified (1) Chest pain Chest pain type: precordial pain Qualified Code(s): R07.2 - Precordial pain (2) Coronary artery disease Associated angina: unspecified whether angina present Coronary Disease-Associated Artery/Lesion type: [place] artery [place] vs. transplanted heart: [place] heart Qualified Code(s): I25.10 - Atherosclerotic heart disease of [place] coronary artery without angina pectoris (4) Hypertension Hypertension type: unspecified Qualified Code(s): I10 - Essential (primary) hypertension
[2023-10-24 08:54] LABS: Troponin I High Sensitivity 10.5 pg/ml (0-20)
[2023-10-24] MEDS ORDERED: THIAMINE HCL 100 MG TAB PO SCH (09:00)
[2023-10-24] MEDS ORDERED: DULoxetine HCL 60 MG CAP PO SCH (09:00)
[2023-10-24] MEDS ORDERED: EZETIMIBE 10 MG TAB PO SCH (09:00)
[2023-10-24] MEDS ORDERED: OMEGA-3 (PURIFIED FISH OIL) 1 GM CAP PO SCH (09:00)
[2023-10-24] MEDS ORDERED: hydroCHLOROthiazide 25 MG TAB PO SCH (09:00)
[2023-10-24] MEDS ORDERED: FINASTERIDE 5 MG TAB PO SCH (09:00)
[2023-10-24] MEDS ORDERED: MONTELUKAST SODIUM 10 MG TABLET PO SCH (09:00)
[2023-10-24] MEDS ORDERED: TAMSULOSIN HCL 0.4 MG CAP PO SCH (09:00)
[2023-10-24] MEDS ORDERED: CYANOCOBALAMIN (B-12) 100 MCG TABLET PO SCH (09:00)
[2023-10-24] MEDS ORDERED: PANTOprazole 40 MG TAB PO SCH (09:00)
[2023-10-24] MEDS ORDERED: UMECLIDINIUM BROMIDE 62.5MCG/BLISTER 7 PUFFS/INHALER INH SCH (09:00)
[2023-10-24] MEDS ORDERED: CHOLECALCIFEROL 1,000 UNITS 25 MCG TAB PO SCH (09:00)
[2023-10-24] MEDS ORDERED: CETIRIZINE HCL 10 MG TABLET PO SCH (09:00)
[2023-10-24] MEDS ORDERED: PRAVASTATIN SOD 10 MG TAB PO SCH (09:00)
[2023-10-24] MEDS ORDERED: METOPROLOL SUCC 50MG EXT REL TAB PO SCH (09:00)
[2023-10-24] MEDS ORDERED: TICAGRELOR 90 MG TAB PO SCH (09:00)
[2023-10-24] MEDS ORDERED: LOSARTAN POTASSIUM 50 MG TAB PO SCH (09:00)
[2023-10-24] MEDS ORDERED: FLUTICASONE/VILANTEROL 200/25MCG 14 PUFFS/INHALER INH SCH (09:00)
[2023-10-24] MEDS ORDERED: METOPROLOL SUCC 50MG EXT REL TAB PO STA (11:47)
--- NOTE | 2023-10-24 11:58 | Discharge Summary ---
Date of Service October 24, 2023 Admission HPI Per Admitting Provider The patient is an 83-year-old male with past medical history including secondary hyperparathyroidism, hypothyroidism, PTSD, asthma-COPD overlap syndrome, sleep apnea, B12 deficiency, BPH with LUTS, CAD status post FERNANDO in left circumflex artery, gout, CKD, and orthostasis. The patient presents to the emergency department due to the acute onset of severe substernal chest pain radiating into his jaw and left arm, that ultimately resolved with active listening sublingual. He also reports that his right arm became severely stiff few minutes later, and then worked its way out as well. He reports that the chest pain similar to his previous heart attack. Discharge Data Allergies Allergy/AdvReac Type Severity Reaction Status Date / Time aspirin Allergy Severe hives and Verified 10/24/23 00:13 mouth/throat swelling, hyperventilation ketorolac Allergy Unknown avoids Verified 10/24/23 00:13 secondary to aspirin component levofloxacin AdvReac Severe torn Verified 10/24/23 00:13 tendons oxycodone AdvReac Intermediate MENTAL Verified 10/24/23 00:13 STATUS CHANGES Svpqdgv-KCC-AjC Reductase AdvReac Intermediate severe Verified 10/24/23 00:13 Inhibitor muscle [Ppbilrq-Lma-Esr Reductase cramps Inhibitor] Consultations 10/24/23 01:01 ED Decision to Admit Stat 10/24/23 05:13 Consult Cardiology Routine Hospital Course (1) PTSD (post-traumatic stress disorder): (2) Carotid artery stenosis: (3) BPH w urinary obs/LUTS: (4) Coronary artery disease: (5) Chronic kidney disease: (6) Peripheral eosinophilia: (7) Hypertension: (8) Presence of drug coated stent in left circumflex coronary artery: (9) Gout: (10) Hyperlipidemia: (11) Chest pain radiating to jaw: (12) Chest pain radiating to arm: Plan Chest pain radiating to jaw and arm/CAD/history of FERNANDO left circumflex/hypertension- The patient will be admitted to telemetry for serial cardiac enzymes, serial EKG's, cardiac rhythm monitoring and a 2-D echocardiogram with Dopplers. Patient had a negative dobutamine stress echo 05/27/2023 Initial troponin normal Continue Brilinta 90 mg p.o. twice daily, HCTZ 12.5 mg daily, losartan 50 mg imelda ly, metoprolol succinate 50 mg daily Patient reports that he is allergic to aspirin, which causes hives, mouth and throat swelling and hyperventilation Consult cardiology Asthma/COPD overlap syndrome/peripheral eosinophilia- Continue albuterol HFA, Advair, montelukast and Spiriva Patient reports that he has been significantly improved since he has been on Fasenra IV per pulmonology at the lung clinic in [place] He reports finishing a 5-day course of doxycycline and Medrol Dosepak 2 days ago Hyperlipidemia- Continue Zetia and low-dose pravastatin Patient reports significant muscle cramps with other statins PTSD- Continue duloxetine 60 mg daily and trazodone 50 mg at bedtime Discharge Plan Discharge Items Patient Disposition: Home - Self-Care Reason For Visit: CHEST PAIN, RULE OUT [place] Discharge Diagnosis: Chest pain (possible unstable angina) Activity: Per Instructions section Exercise/Sports: Gradually increase as tolerated Non-emergency contact: Bolting Machine Operator Call non-emergency contact if: you have any medication questions and your symptoms worsen Follow-up/Referrals: Israel Patel MD [Primary Care Provider] - Israel Carrion MD [Physician] - (Chest pain, suspected unstable angina f/u) Diet: Heart Healthy Addtl Attending Provider Instructions: You were observed overnight on October 24, 2023 due to chest pain relived with nitroglycerin. You were seen by cardiology and recommended uptitration of your metoprolol succinate at this time which will be increased to 100mg PO daily starting tomorrow. Please follow up with your outpatient sales ledger administrator for ongoing optimization of your medications +/- repeat stress testing as an outpatient. Pending Studies at Discharge: No Stand-Alone Forms: My [facility] [place], Smoking Cessation Medications and DC Order Prescriptions: Continued ezetimibe 10 mg tablet 10 mg PO DAILY Qty: 90 3RF Prolia 60 mg/mL syringe 60 mg subcut Q6MO 365 Days Qty: 2 0RF Rx Instructions: [facility]'s [facility] nitroglycerin [Nitrostat] 0.4 mg tablet, sublingual 0.4 mg sublingual PRN PRN (Reason: chest pain) Qty: 25 5RF hydrochlorothiazide 12.5 mg tablet 12.5 mg PO DAILY Qty: 90 3RF finasteride 5 mg tablet 5 mg PO DAILY Qty: 30 11RF Patient Comments: QPM albuterol sulfate 90 mcg/actuation HFA aerosol inhaler 2 puff INHALATION Q6H PRN (Reason: Shortness Of Breath) Qty: 8.5 4RF Rx Instructions: Per [facility] Pharmacist, script is . Filled january 09, 2022 montelukast 10 mg tablet 10 mg PO DAILY Qty: 90 1RF losartan 50 mg tablet 50 mg PO DAILY Qty: 10 1RF clonidine HCl 0.1 mg tablet 0.1 mg PO TID PRN (Reason: PRN SBP>180) Qty: 90 2RF cholecalciferol (vitamin D3) 25 mcg (1,000 unit) capsule 3,000 unit PO DAILY Rx Instructions: Last filled by [facility] August 2014 tiotropium bromide 2.5 mcg/actuation mist 2 inh inhalation BID tamsulosin 0.4 mg capsule 0.4 mg PO DAILY Qty: 90 3RF omeprazole 20 mg capsule,delayed release(DR/EC) 20 mg PO DAILY Qty: 90 3RF duloxetine 60 mg capsule,delayed release(DR/EC) 60 mg PO DAILY Patient Comments: Rx by manjinder Jaffe Pen 30 mg/mL auto-injector 30 mg subcut .COMPLEX Rx Instructions: 30 mg subcutaneously every 2 months; fluticasone propion-salmeterol [Advair Diskus] 500-50 mcg/dose blister with device 1 inh inhalation DAILY levocetirizine 5 mg tablet 2.5 mg PO DAILY levothyroxine 50 mcg tablet 50 mcg PO DAILY Qty: 90 3RF thiamine HCl (vitamin B1) 100 mg Tablet 100 mg PO QAM allopurinol 100 mg Tablet 200 mg PO QPM Rx Instructions: 2 tabs at bedtime to prevent gout pravastatin 10 mg Tablet 10 mg PO QAM Qty: 30 2RF Brilinta 90 mg Tablet 90 mg PO BID Qty: 60 2RF olopatadine 0.1 % drops 1 drp ophthalmic (eye) DAILY omega-3 fatty acids 1,000 mg Capsule 1,000 mg PO DAILY Rx Instructions: No order on file from [facility] garlic 500 mg Capsule 500 mg PO QPM Rx Instructions: [facility] Pharmacist unable to verify cyanocobalamin (vitamin B-12) 100 mcg Tablet 100 mcg PO BID folic acid 1 mg Tablet 1 mg PO Q OTHER DAY fluticasone propionate [Allergy Relief (fluticasone)] 50 mcg/actuation spray,suspension 1 spray intranasal BID PRN (Reason: Allergy Symptoms) Rx Instructions: administer into each nostril once daily trazodone 50 mg tablet 50 mg PO HS Changed metoprolol succinate 50 mg Tablet Extended Release 24 Hr 100 mg PO DAILY Qty: 0 0RF Discharge Orders: Discharge Order (Routine); Ordered 10/24/23 Ordered By: Zaki Willams Admission Data Admit Date/Time: 10/24/23 01:43 Attending Provider: Zaki Willams Admit Provider: Peter Anderson Primary Care Provider: Israel Patel Other Providers: Peter Anderson; Nemesio Disla Coding Diagnoses PTSD (post-traumatic stress disorder) F43.10 Carotid artery stenosis I65.29 BPH w urinary obs/LUTS N40.1; N13.8 Coronary artery disease involving [place] coronary artery of [place] heart, unspecified whether angina present I25.10 Coronary Disease-Associated Artery/Lesion type: [place] artery [place] vs. transplanted heart: [place] heart Associated angina: unspecified whether angina present Chronic kidney disease N18.9 Peripheral eosinophilia D72.19 Hypertension, unspecified type I10 Hypertension type: unspecified Presence of drug coated stent in left circumflex coronary artery Z95.5 Gout M10.9 Hyperlipidemia E78.5 Chest pain radiating to jaw R07.9 Chest pain radiating to arm R07.89
[2023-10-24] MEDS ORDERED: traZODone HCL 50 MG TAB PO SCH (21:00)
[2023-10-24] MEDS ORDERED: NON-FORMULARY MEDICATION (Garlic 500 mg Capsule) PO SCH (21:00)
[2023-10-24] MEDS ORDERED: allopurinoL 100 MG TAB PO SCH (21:00)
--- NOTE | 2023-10-25 06:18 | Electrocardiogram Report ---
Test Reason : Blood Pressure : / mmHG Vent. Rate : 080 BPM Atrial Rate : 080 BPM P-R Int : 146 ms QRS Dur : 084 ms QT Int : 370 ms P-R-T Axes : 047 069 006 degrees QTc Int : 426 ms Normal sinus rhythm with sinus arrhythmia Nonspecific ST and T wave abnormality Abnormal ECG When compared with ECG of 27-MAY-2023 03:40, Nonspecific T wave abnormality now evident in Inferior leads Nonspecific T wave abnormality now evident in Anterolateral leads Confirmed by Nemesio Disla ([id number]) on 10/25/2023 6:17:59 AM Referred By: REFERRED SELF Confirmed By:Nemesio Disla
--- NOTE | 2023-10-25 06:26 | Electrocardiogram Report ---
Test Reason : Blood Pressure : / mmHG Vent. Rate : 064 BPM Atrial Rate : 064 BPM P-R Int : 136 ms QRS Dur : 084 ms QT Int : 424 ms P-R-T Axes : 067 068 055 degrees QTc Int : 437 ms Sinus rhythm with occasional Premature ventricular complexes Otherwise normal ECG When compared with ECG of 23-OCT-2023 23:37, (unconfirmed) Premature ventricular complexes are now Present Confirmed by Nemesio Disla ([id number]) on 10/25/2023 6:26:37 AM Referred By: REFERRED SELF Confirmed By:Nemesio Disla
[2023-10-25] MEDS ORDERED: FOLIC ACID 1 MG TAB PO SCH (09:00)
== END 2023-10-24 13:28 | disposition home or self-care (01) ==
LOC: ED 23:32 → 2S 23:32 → SUATTDRO 10-24 01:43 → 2S 10-24 03:59

== ENCOUNTER 2024-08-18 08:37 | Observation (INO) ==
--- NOTE | 2024-07-10 12:33 | PAT Medication Instructions ---
Medication Instructions Date of Service July 10, 2024 Home Medications Medication Instructions Recorded pravastatin 10 mg tablet 10 mg PO QAM #30 tabs 12/21/21 albuterol sulfate 90 mcg/actuation 2 puff inhalation Q6H PRN 07/29/22 aerosol inhaler Shortness Of Breath #8.5 grams clonidine HCl 0.1 mg tablet 0.1 mg PO TID PRN PRN SBP>180 #90 06/30/23 tabs nitroglycerin 0.4 mg sublingual 0.4 mg sublingual PRN PRN chest 07/08/23 tablet (Nitrostat) pain #25 tabs apixaban 2.5 mg tablet (Eliquis) 2.5 mg PO BID #180 tabs 05/24/24 denosumab 60 mg/mL subcutaneous 60 mg subcut Q6MO 365 days #1 mL 05/29/24 syringe (Prolia) Medication List: allopurinol 100 mg tablet 200 mg PO QPM thiamine HCl (vitamin B1) 100 mg tablet 100 mg PO QAM pravastatin 10 mg tablet 10 mg PO QAM albuterol sulfate 90 mcg/actuation aerosol inhaler 2 puff inhalation Q6H PRN Shortness Of Breath garlic 500 mg capsule 500 mg PO QAM omega-3 fatty acids 1,000 mg capsule 1,000 mg PO QAM cyanocobalamin (vitamin B-12) 100 mcg tablet 100 mcg PO QAM fluticasone propionate 50 mcg/actuation nasal spray,suspension (Allergy Relief (fluticasone)) 1 spray intranasal BID PRN Allergy Symptoms folic acid 1 mg tablet 1 mg PO Q2D clonidine HCl 0.1 mg tablet 0.1 mg PO TID PRN PRN SBP>180 nitroglycerin 0.4 mg sublingual tablet (Nitrostat) 0.4 mg sublingual PRN PRN chest pain tiotropium bromide 2.5 mcg/actuation mist for inhalation (Spiriva Respimat) 2 inh inhalation QAM duloxetine 60 mg capsule,delayed release 60 mg PO QAM levocetirizine 5 mg tablet 2.5 mg PO QAM allergy symptoms olopatadine 0.1 % eye drops 1 drp ophthalmic (eye) DAILY trazodone 50 mg tablet 75 mg PO HS sleep dupilumab [Dupixent Pen] See Rx Instructions subcut .COMPLEX apixaban 2.5 mg tablet (Eliquis) 2.5 mg PO BID denosumab 60 mg/mL subcutaneous syringe (Prolia) 60 mg subcut Q6MO clopidogrel 75 mg tablet (Plavix) 75 mg PO BID ezetimibe 10 mg tablet 10 mg PO QAM finasteride 5 mg tablet 5 mg PO QAM fluticasone 500 mcg-salmeterol 50 mcg/dose blistr powdr for inhalation (Wixela Inhub) 1 inh inhalation QAM hydrochlorothiazide 12.5 mg tablet 12.5 mg PO QAM levothyroxine 50 mcg tablet 50 mcg PO QAM losartan 50 mg tablet 50 mg PO QAM metoprolol succinate 50 mg tablet,extended release 24 hr 75 mg PO QAM montelukast 10 mg tablet (Singulair) 10 mg PO QAM omeprazole 20 mg capsule,delayed release 20 mg PO QAM prednisone 20 mg tablet 20 mg PO .COMPLEX PRN Lung Infection tamsulosin 0.4 mg capsule (Flomax) 0.4 mg PO QAM MEDICATION INSTRUCTIONS: Continue as directed olopatadine 0.1 % eye drops 1 drp ophthalmic (eye) DAILY tiotropium bromide 2.5 mcg/actuation mist for inhalation (Spiriva Respimat) 2 inh inhalation QAM albuterol sulfate 90 mcg/actuation aerosol inhaler 2 puff inhalation Q6H PRN Shortness Of Breath (use if needed; BRING TO HOSPITAL) fluticasone propionate 50 mcg/actuation nasal spray,suspension (Allergy Relief (fluticasone)) 1 spray intranasal BID PRN Allergy Symptoms fluticasone 500 mcg-salmeterol 50 mcg/dose blistr powdr for inhalation (Wixela Inhub) 1 inh inhalation QAM prednisone 20 mg tablet 20 mg PO .COMPLEX PRN Lung Infection nitroglycerin 0.4 mg sublingual tablet (Nitrostat) 0.4 mg sublingual PRN PRN chest pain ASK your prescriber and surgeon clopidogrel 75 mg tablet (Plavix) 75 mg PO BID (for spinal anesthesia: will need to hold Plavix/clopidogrel for at least 7 days prior to surgery) apixaban 2.5 mg tablet (Eliquis) 2.5 mg PO BID (for spinal anesthesia: will need to hold Eliquis/apixaban at least 72 hours prior to surgery) STOP taking 2 weeks before surgery garlic 500 mg capsule 500 mg PO QAM omega-3 fatty acids 1,000 mg capsule 1,000 mg PO QAM DO NOT take the morning of surgery thiamine HCl (vitamin B1) 100 mg tablet 100 mg PO QAM cyanocobalamin (vitamin B-12) 100 mcg tablet 100 mcg PO QAM folic acid 1 mg tablet 1 mg PO Q2D levocetirizine 5 mg tablet 2.5 mg PO QAM allergy symptoms hydrochlorothiazide 12.5 mg tablet 12.5 mg PO QAM losartan 50 mg tablet 50 mg PO QAM Take morning of surgery With a small sip of water, OTHERWISE NOTHING TO EAT OR DRINK AFTER MIDNIGHT: tamsulosin 0.4 mg capsule (Flomax) 0.4 mg PO QAM finasteride 5 mg tablet 5 mg PO QAM duloxetine 60 mg capsule,delayed release 60 mg PO QAM pravastatin 10 mg tablet 10 mg PO QAM metoprolol succinate 50 mg tablet,extended release 24 hr 75 mg PO QAM levothyroxine 50 mcg tablet 50 mcg PO QAM ezetimibe 10 mg tablet 10 mg PO QAM montelukast 10 mg tablet (Singulair) 10 mg PO QAM omeprazole 20 mg capsule,delayed release 20 mg PO QAM clonidine HCl 0.1 mg tablet 0.1 mg PO TID PRN PRN SBP>180 Take evening before surgery trazodone 50 mg tablet 75 mg PO HS sleep allopurinol 100 mg tablet 200 mg PO QPM clonidine HCl 0.1 mg tablet 0.1 mg PO TID PRN PRN SBP>180 Other Notes Check with presciber for instructions: dupilumab [Dupixent Pen] See Rx Instructions subcut .COMPLEX denosumab 60 mg/mL subcutaneous syringe (Prolia) 60 mg subcut Q6MO If you have any questions please call us at [phone] or [phone] or [phone] or [phone]
--- NOTE | 2024-07-17 10:43 | Anesthesiology Consultation ---
Date of Service July 17, 2024 Assessment & Plan (1) Encounter for pre-operative examination: Plan - patient will need [place] cardiology and PCP clearances. - ER [facility] 07/17/24: "...chest discomfort. IV was established and blood was obtained. Blood work unremarkable with the patient is initial EKG showed T wave flattening and acute changes inferiorly and the patient does have a history of prior inferior lateral disease and prior stent to the circumflex and OM 2...Patient's initial troponin of 8. I did discuss with the patient that given the patient's EKG that appears at baseline if 2 negative troponins and the fact that has had 3 weeks of symptoms believe ACS to be less likely. I did consider admission which was offered to the patient but the patient declined. Patient's repeat troponin is negative..." - During patient's physical examination, he mentioned to me that he completed a course of doxycycline and prednisone 3 weeks ago, but has since been experiencing left sided chest discomfort described as "heartburn" and he has uneasiness/is concerned regarding this today-states that is concerning him as "this is not normal." He denies radiation into jaw or left arm. He states that he continues to have cough productive of yellow sputum and every time he coughs is experiencing severe "stabbing" chest pain radiating into his back. He denies chest discomfort worsening with activity. I notified shale processing technician to come into room for EKG which was done promptly-review of tracing shows no significant ST changes. Case discussed in detail with Dr. Partida who advised given the constellation of symptoms and patient reporting uneasiness/concern he advises patient have further evaluation in the ER. This was discussed with patient and he verbalized agreement, requested I call his daughter Carla for his dog is in his vehicle. I advised him we will need medical and cardiology clearance before surgery. Patient was transported to the ER via wheelchair and detailed report called to [facility] ER dry charge process attendant Nicki including patient's dog in vehicle being taken care of. Detailed message left requesting return call. Patient's daughter returned call and is coming to [facility] ER to see her father and take care of dog. The ER and security confirmed dog is taken care of. Surgeon's office made aware. Chart Review Chart Review: Pending: Refer to Additional Notes / Consult section and Patient seen in Pre Admission Testing Teaching & Discussion Pre-Anesthesia Teaching/Discussion Notes: Instructed NPO after midnight before surgery, except medications with 15 cc of water. Medication instructions provided according to the PAT guidelines. History Surgery Operation Date: 08/18/24 10:00 Proposed Procedures p Right Total Knee Arthroplasty - Alejandro Phillips DO Height/Weight Height: 6 ft Weight: 80.739 kg Allergies Allergy/AdvReac Type Severity Reaction Status Date / Time aspirin AdvReac Severe hives and Verified 07/06/24 10:37 mouth/throat swelling, hyperventilation ketorolac AdvReac Severe Avoids Verified 07/06/24 10:37 secondary to aspirin component levofloxacin AdvReac Severe Torn Verified 07/06/24 10:37 tendons in Legs oxycodone AdvReac Intermediate Mental Verified 07/06/24 10:37 Status Change/Hallucinations Tlrqnwa-[id number]-FpK Reductase AdvReac Intermediate severe Verified 07/06/24 10:37 Inhibitor muscle [Xuzzzar-Dfa-Gov Reductase cramps Inhibitor] Medications Home Medications Medication Instructions Recorded Confirmed Last Taken allopurinol 100 mg tablet 200 mg PO QPM 08/10/18 07/17/24 10/23/23 thiamine HCl (vitamin B1) 100 mg 100 mg PO QAM 08/10/18 07/17/24 10/23/23 tablet pravastatin 10 mg tablet 10 mg PO QAM #30 tabs 12/21/21 07/17/24 10/23/23 albuterol sulfate 90 mcg/actuation 2 puff inhalation Q6H PRN 07/29/22 07/17/24 Unknown aerosol inhaler Shortness Of Breath #8.5 grams garlic 500 mg capsule 500 mg PO QAM 10/14/22 07/17/24 10/23/23 omega-3 fatty acids 1,000 mg 1,000 mg PO QAM 10/14/22 07/17/24 10/23/23 capsule cyanocobalamin (vitamin B-12) 100 100 mcg PO QAM 04/22/23 07/17/24 10/23/23 mcg tablet fluticasone propionate 50 1 spray intranasal BID PRN Allergy 04/22/23 07/17/24 Unknown mcg/actuation nasal Symptoms spray,suspension (Allergy Relief (fluticasone)) folic acid 1 mg tablet 1 mg PO Q2D 04/22/23 07/17/24 10/23/23 clonidine HCl 0.1 mg tablet 0.1 mg PO TID PRN PRN SBP>180 #90 06/30/23 07/17/24 Unknown tabs nitroglycerin 0.4 mg sublingual 0.4 mg sublingual PRN PRN chest 07/08/23 07/17/24 Unknown tablet (Nitrostat) pain #25 tabs tiotropium bromide 2.5 2 inh inhalation QAM 09/21/23 07/17/24 10/23/23 mcg/actuation mist for inhalation (Spiriva Respimat) duloxetine 60 mg capsule,delayed 60 mg PO QAM 10/21/23 07/17/24 10/23/23 release levocetirizine 5 mg tablet 2.5 mg PO QAM allergy symptoms 10/21/23 07/17/24 10/23/23 olopatadine 0.1 % eye drops 1 drp ophthalmic (eye) DAILY 10/21/23 07/17/2410/23 trazodone 50 mg tablet 75 mg PO HS sleep 10/21/23 07/17/24 10/23/23 dupilumab [Dupixent Pen] See Rx Instructions subcut .COMPLEX 03/29/24 07/17/24 06/28/24 apixaban 2.5 mg tablet (Eliquis) 2.5 mg PO BID #180 tabs 05/24/24 07/17/24 Unknown denosumab 60 mg/mL subcutaneous 60 mg subcut Q6MO 365 days #1 mL 05/29/24 07/17/24 Unknown syringe (Prolia) clopidogrel 75 mg tablet (Plavix) 75 mg PO BID 07/05/24 07/17/24 Unknown ezetimibe 10 mg tablet 10 mg PO QAM 07/05/24 07/17/24 Unknown finasteride 5 mg tablet 5 mg PO QAM 07/05/24 07/17/24 Unknown fluticasone 500 mcg-salmeterol 50 1 inh inhalation QAM 07/05/24 07/17/24 Unknown mcg/dose blistr powdr for inhalation (Wixela Inhub) hydrochlorothiazide 12.5 mg tablet 12.5 mg PO QAM 07/05/24 07/17/24 Unknown levothyroxine 50 mcg tablet 50 mcg PO QAM 07/05/24 07/17/24 Unknown losartan 50 mg tablet 50 mg PO QAM 07/05/24 07/17/24 Unknown metoprolol succinate 50 mg 75 mg PO QAM 07/05/24 07/17/24 Unknown tablet,extended release 24 hr montelukast 10 mg tablet 10 mg PO QAM 07/05/24 07/17/24 Unknown (Singulair) omeprazole 20 mg capsule,delayed 20 mg PO QAM 07/05/24 07/17/24 Unknown release prednisone 20 mg tablet 20 mg PO .COMPLEX PRN Lung 07/05/24 07/17/24 Unknown Infection tamsulosin 0.4 mg capsule (Flomax) 0.4 mg PO QAM 07/05/24 07/17/24 Unknown Past Medical History Medical History (Updated 07/20/24 @ 09:48 by Apryl Hayes PA-C) Anxiety and depression Arthritis Ascending aortic aneurysm "PCP/Dr. Patel monitors" Asthma stable per pt; last rescue albuterol inhaler use last week per patient, notes improvement after starting dupixent injections Atrial fibrillation "Slight" just completed Holter Monitor 05/2024 Balance problems "Due to both achilles tendon tears" denies repair. doesn't use walker/cane/wheelchair Benign essential tremor Hands Pt denies BPH (benign prostatic hyperplasia) CAD (coronary artery disease) Dr Carrion Carotid artery stenosis S/P RIGHT CEA (08/2018) CKD (chronic kidney disease) stage 3, GFR 30-59 ml/min Pt denies Follows Dr. Thomas COPD (chronic obstructive pulmonary disease) exacerbation 3 weeks ago-states he completed a course of doxycycline and prednisone Degenerative disc disease Deviated nasal septum Difficult intubation s/p cervical spine surgery Diverticular disease "found on colonoscopy" BATES (dyspnea on exertion) "Not just moving around - its when I am doing extensive work like gardening" GERD (gastroesophageal reflux disease) Controlled, stable per pt Hearing deficit Bilateral Hearing Aids History of colon cancer "removed 2 cancerous colon polyps - colonoscopys have came back clean ever since" HTN (hypertension) controlled, stable per pt Hx of chest pain no current issues at this time Hx of gout no recent flares Hx of hepatitis "In [place] war, I was in the hospital for 5 days in the field from drinking untreated water" Hypothyroidism Mitral regurgitation Osteoarthritis Osteoporosis Post traumatic stress disorder Pulmonary nodules Follows [facility] Dr Aurelio Camacho Scoliosis Seasonal allergies Sleep apnea can't tolerate device Temporomandibular joint dysfunction syndrome pt denies Patient denies h/o stroke, seizures, DM, blood clots/DVTs or blood transfusions. Exercise / Class Metabolic Activity III < 4 Walking/Shop/Light housework (shortness of breath with activities such as gardening-denies change or worsening) Past Family History Family History Sister Breast cancer Cancer Hypertension Brother Myocardial infarction COPD (chronic obstructive pulmonary disease) Hypertension Father Hypertension Mother Hypertension Other No family history of adverse response to anesthesia Denies family history of Ovarian cancer Prostate cancer Diabetes Colorectal cancer Past Surgical History Surgical History History of cardiac cath - No Stents 2021 - With Stents x2 History of cataract surgery Right History of colonoscopy with polypectomy History of difficult intubation C3-5 ACDF= 08/23/17= Grade view 2, Glidescope#4, ETT 8.0 (Head/neck neutral for intubation) at [facility] History of esophagogastroduodenoscopy (EGD) History of heart artery stent x2 2021 History of lumbar fusion L4-L5 History of right-sided carotid endarterectomy History of tonsillectomy History of tooth extraction History of total knee replacement Left History of total shoulder replacement Bilateral Hx of cervical spine surgery C3-5 ACDF 2016 Past Anesthesia History No Hx of Anesthesia Complications and No Family Hx of Anesthesia Complications History of PONV No Hx of PONV and No Hx of Motion Sickness Social History Smoking Status: Never smoker tobacco type: cigarettes Do You Dip or Chew Tobacco: Yes (Advised) Hx Alcohol Use: No Alcohol type: beer Hx Substance Use: No substance use type: does not use Review of Systems Patient denies fever, chills, cough, wheezing, or palpitations. Physical Exam Vital Signs Vitals BP 138/76 P 81 TEMP 98.2 SP02 96% on RA RESP 17 Physical Patient resting comfortably in chair in no acute distress, alert and oriented, responding appropriately throughout visit Full cervical extension range of motion without pain TMD 3.5 finger breadths Mallampati Score 2 Dentition: full upper dentures Lungs: normal respiratory effort. Good air movement, clear throughout to auscultation, no adventitious breath sounds Cardiac: regular rate and rhythm, no murmurs noted Carotid arteries: negative bruit bilat Lab Results Anesthesia Preop Results Results Anesthesia Widget: WBC 5.88 K/ul (4.8-10.8) 07/17/24 Hgb 13.2 g/dl (14.0-18.0) L 07/17/24 Hct 40.5 % (42.0-52.0) L 07/17/24 Plt 181 K/uL (130-400) 07/17/24 Na 138 mmol/L (136-145) 07/17/24 K 4.0 mmol/L (3.5-5.1) 07/17/24 Cl 105 mmol/L (98-107) 07/17/24 CO2 25 mmol/L (21-32) 07/17/24 BUN 28 mg/dl (6-23) H 07/17/24 Creat 2.11 mg/dl (0.6-1.4) H 07/17/24 Glucose Level 114 mg/dl (70-99(Fasting)) H 07/17/24 PT 10.3 Seconds (9.0-12.0) 07/17/24 PTT 30 Seconds (21-31) 07/17/24 INR 0.9 (0.9-1.1) 07/17/24 TSH 3.852 uIu/ml (0.300-4.500) 06/19/24 Blood Type O Positive 07/17/24 Antibody Screen NEGATIVE 07/17/24 Testing Electrocardiogram Date: 07/17/24 Sinus bradycardia with occasional PVCs, rate 59 bpm Chest X-Ray Date: 07/17/24 *1view* No significant change compared to the prior study. No acute process. Echocardiogram Date: 10/14/22 EF > 70% Normal LV wall motion Mild cLVH Focal basal septal thickening Grade I diastolic dysfunction Mild mitral regurgitation Stress Test Date: 05/27/23 Negative dobutamine stress echo MPHR 90% EF 60-65% Severe cLVH Normal LV wall motion No significant valvular pathology Cardiac Catheterization Date: 12/20/21 LM -medium caliber, luminal irregularities LAD -medium caliber, 50-60 % ostial stenosis, mid segment 40% disease, distal vessel without significant disease and wraps around apex. Circumflex -codominant, large caliber, acute 100% mid occlusion at takeoff of OM 2. Large OM1 without significant disease. RCA -codominant, medium caliber, mid segment calcified with diffuse 20% disease, distal 40-50% stenosis just before RPDA. Medium RPDA without significant disease 1. Inferolateral STEMI 2. 100% acute occlusion of codominant mid circumflex 3. Multivessel non-culprit coronary artery disease -50-60% ostial, 40% mid LAD 40-50% distal RCA 4. Normal intracardiac filling pressure 5. Successful PCI of acute latemid circumflex occlusion into OM 2 with single drug-eluting stent (2.5 x 18 mm Frankie; postdilated with 3.0 NC). Cervical Spine Date: 01/13/24 Demineralized appearance of the bones. Lung apices appear clear. Anterior fusion with discectomy noted at C3-C4 and C4-C5. Severe disc space narrowing at C5-C6 and C6-C7. 3 mm anterolisthesis C2 on C3, likely secondary to chronic facet disease. Moderate to severe multilevel facet arthrosis. No acute fracture identified. Shoulder arthroplasties are noted. Moderate multilevel bilateral foraminal stenosis. No prevertebral edema. IMPRESSION: 1. No acute fracture identified. 2. Degenerative and postoperative changes as above. Other Testing Carotid doppler 06/19/24 < 30% stenosis of the right ICA, s/p endarterectomy < 50% stenosis of the left ICA > 50% stenosis in the left common carotid artery Cardiac event monitor 05/17/24 Sinus rhythm (47-167; avg 66) Occasional PACs and PVCs Paroxysmal atrial fibrillation Rare NSVT-longest 8 beats
--- NOTE | 2024-08-17 15:18 | History & Physical Report ---
Date of Service August 17, 2024 History of Present Illness Chief Complaint: Osteoarthritis of the right knee. Primary Care Provider: Israel Patel MD Steve is a pleasant 83-year-old male who has been dealing with a chronic increasingright knee pain. He hasbeen seeing my partners. He hasbeen diagnosed with arthritis of his knee and has failed extensive conservative treatment. He has a history of a left knee done by Dr. Marti 1999. After failing conservative treatment with his right knee, he has elected proceed with a right total knee arthroplasty. Allergies Allergy/AdvReac Type Severity Reaction Status Date / Time aspirin AdvReac Severe hives and Verified 08/02/24 11:09 mouth/throat swelling, hyperventilation ketorolac AdvReac Severe Avoids Verified 08/02/24 11:09 secondary to aspirin component levofloxacin AdvReac Severe Torn Verified 08/02/24 11:09 tendons in Legs oxycodone AdvReac Intermediate Mental Verified 08/02/24 11:09 Status Change/Hallucinations Svpweoh-VIX-RmB Reductase AdvReac Intermediate severe Verified 08/02/24 11:09 Inhibitor muscle [Nrpnptf-Lfb-Zxy Reductase cramps Inhibitor] Home Medications Medication Instructions Recorded Confirmed Type allopurinol 100 mg tablet 200 mg PO QPM 08/10/18 08/02/24 History thiamine HCl (vitamin B1) 100 mg 100 mg PO QAM 08/10/18 08/02/24 History tablet pravastatin 10 mg tablet 10 mg PO QAM #30 tabs 12/21/21 08/02/24 Rx albuterol sulfate 90 mcg/actuation 2 puff inhalation Q6H PRN 07/29/22 08/02/24 Rx aerosol inhaler Shortness Of Breath #8.5 grams garlic 500 mg capsule 500 mg PO QAM 10/14/22 08/02/24 History omega-3 fatty acids 1,000 mg 1,000 mg PO QAM 10/14/22 08/02/24 History capsule cyanocobalamin (vitamin B-12) 100 100 mcg PO QAM 04/22/23 08/02/24 History mcg tablet fluticasone propionate 50 1 spray intranasal BID PRN Allergy 04/22/23 08/02/24 History mcg/actuation nasal Symptoms spray,suspension (Allergy Relief (fluticasone)) folic acid 1 mg tablet 1 mg PO Q2D 04/22/23 08/02/24 History clonidine HCl 0.1 mg tablet 0.1 mg PO TID PRN PRN SBP>180 #90 06/30/23 08/02/24 Rx tabs nitroglycerin 0.4 mg sublingual 0.4 mg sublingual PRN PRN chest 07/08/23 08/02/24 Rx tablet (Nitrostat) pain #25 tabs tiotropium bromide 2.5 2 inh inhalation QAM 09/21/23 08/02/24 History mcg/actuation mist for inhalation (Spiriva Respimat) duloxetine 60 mg capsule,delayed 60 mg PO QAM 10/21/23 08/02/24 History release levocetirizine 5 mg tablet 2.5 mg PO QAM allergy symptoms 10/21/23 08/02/24 History olopatadine 0.1 % eye drops 1 drp ophthalmic (eye) DAILY 10/21/23 08/02/24 History trazodone 50 mg tablet 75 mg PO HS sleep 10/21/23 08/02/24 History dupilumab [Dupixent Pen] See Rx Instructions subcut .COMPLEX 03/29/24 08/02/24 History apixaban 2.5 mg tablet (Eliquis) 2.5 mg PO BID #180 tabs 05/24/24 08/02/24 Rx denosumab 60 mg/mL subcutaneous 60 mg subcut Q6MO 365 days #1 mL 05/29/24 08/02/24 Rx syringe (Prolia) ezetimibe 10 mg tablet 10 mg PO QAM 07/05/24 08/02/24 History finasteride 5 mg tablet 5 mg PO QAM 07/05/24 08/02/24 History fluticasone 500 mcg-salmeterol 50 1 inh inhalation QAM 07/05/24 08/02/24 History mcg/dose blistr powdr for inhalation (Wixela Inhub) hydrochlorothiazide 12.5 mg tablet 12.5 mg PO QAM 07/05/24 08/02/24 History levothyroxine 50 mcg tablet 50 mcg PO QAM 07/05/24 08/02/24 History losartan 50 mg tablet 50 mg PO QAM 07/05/24 08/02/24 History metoprolol succinate 50 mg 75 mg PO QAM 07/05/24 08/02/24 History tablet,extended release 24 hr montelukast 10 mg tablet 10 mg PO QAM 07/05/24 08/02/24 History (Singulair) omeprazole 20 mg capsule,delayed 20 mg PO QAM 07/05/24 08/02/24 History release prednisone 20 mg tablet 20 mg PO .COMPLEX PRN Lung 07/05/24 08/02/24 History Infection tamsulosin 0.4 mg capsule (Flomax) 0.4 mg PO QAM 07/05/24 08/02/24 History doxycycline monohydrate 100 mg 100 mg PO BID #24 caps 07/28/24 08/02/24 Rx capsule methylprednisolone 4 mg tablets in 4 mg PO DAILY 12 days #42 ea 07/28/24 08/02/24 Rx a dose pack clopidogrel 75 mg tablet (Plavix) 75 mg PO DAILY #14 tabs 08/02/24 08/02/24 Rx Past Med/Surg History Problem List (Updated 08/04/24 @ 00:09 by Background Ronan) Atypical chest pain Bronchitis Intercostal muscle strain Osteoarthritis of right knee History of left knee surgery Neck Pain Osteopenia Chondrocalcinosis of right knee Chest pain (Acute) Gait disturbance Hyperparathyroidism, secondary Hypothyroidism (acquired) Back pain Osteoarthritis of knees, bilateral Partial tear of left Achilles tendon Partial tear of right Achilles tendon History of orthostatic hypotension Labile hypertension Chest pain (Acute) Balance problems Hyperparathyroidism, secondary Acute on chronic renal insufficiency 03/01/23 Osteoporosis Osteopenia Achilles rupture, left 11/04/22 Achilles rupture, right 11/04/22 Orthostatic hypotension BATES (dyspnea on exertion) Presence of drug coated stent in left circumflex coronary artery (12/2021) Orthostatic lightheadedness Chronic renal insufficiency (Acute) Dizziness (Acute) Lab test negative for COVID-19 virus (Acute) Hx of coronary artery disease (Acute) Near syncope (Acute) Gout flare Bilateral Achilles tendonosis Sinusitis 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 s/p single FERNANDO mid circ 12/20/2021 Gout (Acute) S/P drug eluting coronary stent placement Admitted to intensive care unit Mitral regurgitation CKD (chronic kidney disease) stage 4, GFR 15-29 ml/min (Acute) Tobacco use (Acute) Essential hypertension Positive colorectal cancer screening using Cologuard test Positive colorectal cancer screening using Cologuard test Compression fracture of T3 vertebra Elevated hemoglobin A1c Encounter for pre-operative examination Hypothyroidism Grief reaction Inflamed seborrheic keratosis Skin abnormality Diverticulum of bladder BPH w urinary obs/LUTS High prostate specific antigen (PSA) Ascending aortic aneurysm Cervical facet joint syndrome (Chronic) COPD (chronic obstructive pulmonary disease) (Chronic) Bilateral sensorineural hearing loss (Acute) Vitamin B12 deficiency (Acute) Sleep apnea (Acute) NO DEVICE (COULD NOT TOLERATE) Proteinuria (Acute) Lumbar radiculopathy (Acute) Chronic back pain (Acute) Anemia (Acute) Alcohol dependence (Acute) QUIT 2019 Lower urinary tract symptoms (LUTS) History of cervical spinal surgery (Chronic) C3-5 ACDF Hyperlipidemia Asthma (Chronic) PTSD (post-traumatic stress disorder) (Chronic) Medical History Difficult intubation Hx of hepatitis Carotid artery stenosis Diverticular disease HTN (hypertension) Atrial fibrillation Sleep apnea Hx of chest pain Osteoporosis Pulmonary nodules Mitral regurgitation Hypothyroidism BATES (dyspnea on exertion) CAD (coronary artery disease) Balance problems COPD (chronic obstructive pulmonary disease) CKD (chronic kidney disease) stage 3, GFR 30-59 ml/min Ascending aortic aneurysm Arthritis BPH (benign prostatic hyperplasia) History of colon cancer Hx of gout Anxiety and depression Temporomandibular joint dysfunction syndrome Seasonal allergies Scoliosis Deviated nasal septum Benign essential tremor Osteoarthritis GERD (gastroesophageal reflux disease) Hearing deficit Post traumatic stress disorder Degenerative disc disease Asthma Surgical History History of heart artery stent Hx of cervical spine surgery History of cataract surgery History of difficult intubation History of right-sided carotid endarterectomy History of lumbar fusion History of tooth extraction History of tonsillectomy History of total shoulder replacement History of total knee replacement History of esophagogastroduodenoscopy (EGD) History of colonoscopy History of cardiac cath Family History Sister Breast cancer Cancer Hypertension Brother Myocardial infarction COPD (chronic obstructive pulmonary disease) Hypertension Father Hypertension Mother Hypertension Other No family history of adverse response to anesthesia Denies family history of Ovarian cancer Prostate cancer Diabetes Colorectal cancer Social History Smoking Status: Former smoker Tobacco Type: Cigarettes and Smokeless Tobacco (Dip or Chew) Age Started Using Tobacco: 14; Age Quit Using Tobacco: 36; packs per day: 2; Second Hand Exposure: No; Do You Dip or Chew Tobacco: Yes (Advised); Tobacco Cessation Education Requested by Patient: No Hx Alcohol Use: No Hx Substance Use: No Preferred Language: Uzbek Communication Ability: Effective Visual Impairment: No Limitations Hearing Ability: Use of Hearing Aid Staking Press Operator Required: No Beliefs That Will Affect Care: None marital status: / Current Living Situation: Alone current occupational status: retired 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 Physical Exam . Results & Data Results & Data Laboratory Results . Diagnostic Findings . PG Care Time/CCT Total # of Minutes Spent Total Time Spent with Patient: Total time spent is greater than 50% in coordination of care (as documented) at patient's floor/unit and/or counseling patient: Coding Level of Care Code None
--- NOTE | 2024-08-17 15:20 | History & Physical Report ---
Date of Service August 17, 2024 Assessment & Plan (1) Osteoarthritis of right knee: We will proceed with a right total knee arthroplasty. Postoperatively he will be started on Eliquis for DVT prophylaxis and kept overnight in the hospital for postop medical management. He plans to use energy physical therapy upon discharge. History of Present Illness Chief Complaint: Osteoarthritis of the right knee. Primary Care Provider: Israel Patel MD Steve is a pleasant 83-year-old male who has been dealing with a chronic increasingright knee pain. He hasbeen seeing my partners. He hasbeen diagnosed with arthritis of his knee and has failed extensive conservative treatment. He has a history of a left knee done by Dr. Marti 1999. After failing conservative treatment, he has elected proceed with a right total knee arthroplasty. Allergies Allergy/AdvReac Type Severity Reaction Status Date / Time aspirin AdvReac Severe hives and Verified 08/02/24 11:09 mouth/throat swelling, hyperventilation ketorolac AdvReac Severe Avoids Verified 08/02/24 11:09 secondary to aspirin component levofloxacin AdvReac Severe Torn Verified 08/02/24 11:09 tendons in Legs oxycodone AdvReac Intermediate Mental Verified 08/02/24 11:09 Status Change/Hallucinations Kzandst-CNR-XlX Reductase AdvReac Intermediate severe Verified 08/02/24 11:09 Inhibitor muscle [Xosiqss-Jcm-Cjs Reductase cramps Inhibitor] Home Medications Medication Instructions Recorded Confirmed Type allopurinol 100 mg tablet 200 mg PO QPM 08/10/18 08/02/24 History thiamine HCl (vitamin B1) 100 mg 100 mg PO QAM 08/10/18 08/02/24 History tablet pravastatin 10 mg tablet 10 mg PO QAM #30 tabs 12/21/21 08/02/24 Rx albuterol sulfate 90 mcg/actuation 2 puff inhalation Q6H PRN 07/29/22 08/02/24 Rx aerosol inhaler Shortness Of Breath #8.5 grams garlic 500 mg capsule 500 mg PO QAM 10/14/22 08/02/24 History omega-3 fatty acids 1,000 mg 1,000 mg PO QAM 10/14/22 08/02/24 History capsule cyanocobalamin (vitamin B-12) 100 100 mcg PO QAM 04/22/23 08/02/24 History mcg tablet fluticasone propionate 50 1 spray intranasal BID PRN Allergy 04/22/23 08/02/24 History mcg/actuation nasal Symptoms spray,suspension (Allergy Relief (fluticasone)) folic acid 1 mg tablet 1 mg PO Q2D 04/22/23 08/02/24 History clonidine HCl 0.1 mg tablet 0.1 mg PO TID PRN PRN SBP>180 #90 06/30/23 08/02/24 Rx tabs nitroglycerin 0.4 mg sublingual 0.4 mg sublingual PRN PRN chest 07/08/23 08/02/24 Rx tablet (Nitrostat) pain #25 tabs tiotropium bromide 2.5 2 inh inhalation QAM 09/21/23 08/02/24 History mcg/actuation mist for inhalation (Spiriva Respimat) duloxetine 60 mg capsule,delayed 60 mg PO QAM 10/21/23 08/02/24 History release levocetirizine 5 mg tablet 2.5 mg PO QAM allergy symptoms 10/21/23 08/02/24 History olopatadine 0.1 % eye drops 1 drp ophthalmic (eye) DAILY 10/21/23 08/02/24 History trazodone 50 mg tablet 75 mg PO HS sleep 10/21/23 08/02/24 History dupilumab [Dupixent Pen] See Rx Instructions subcut .COMPLEX 03/29/24 08/02/24 History apixaban 2.5 mg tablet (Eliquis) 2.5 mg PO BID #180 tabs 05/24/24 08/02/24 Rx denosumab 60 mg/mL subcutaneous 60 mg subcut Q6MO 365 days #1 mL 05/29/24 08/02/24 Rx syringe (Prolia) ezetimibe 10 mg tablet 10 mg PO QAM 07/05/24 08/02/24 History finasteride 5 mg tablet 5 mg PO QAM 07/05/24 08/02/24 History fluticasone 500 mcg-salmeterol 50 1 inh inhalation QAM 07/05/24 08/02/24 History mcg/dose blistr powdr for inhalation (Wixela Inhub) hydrochlorothiazide 12.5 mg tablet 12.5 mg PO QAM 07/05/24 08/02/24 History levothyroxine 50 mcg tablet 50 mcg PO QAM 07/05/24 08/02/24 History losartan 50 mg tablet 50 mg PO QAM 07/05/24 08/02/24 History metoprolol succinate 50 mg 75 mg PO QAM 07/05/24 08/02/24 History tablet,extended release 24 hr montelukast 10 mg tablet 10 mg PO QAM 07/05/24 08/02/24 History (Singulair) omeprazole 20 mg capsule,delayed 20 mg PO QAM 07/05/24 08/02/24 History release prednisone 20 mg tablet 20 mg PO .COMPLEX PRN Lung 07/05/24 08/02/24 History Infection tamsulosin 0.4 mg capsule (Flomax) 0.4 mg PO QAM 07/05/24 08/02/24 History doxycycline monohydrate 100 mg 100 mg PO BID #24 caps 07/28/24 08/02/24 Rx capsule methylprednisolone 4 mg tablets in 4 mg PO DAILY 12 days #42 ea 07/28/24 08/02/24 Rx a dose pack clopidogrel 75 mg tablet (Plavix) 75 mg PO DAILY #14 tabs 08/02/24 08/02/24 Rx Past Med/Surg History Problem List Atypical chest pain Bronchitis Intercostal muscle strain Osteoarthritis of right knee History of left knee surgery Neck Pain Osteopenia Chondrocalcinosis of right knee Chest pain (Acute) Gait disturbance Hyperparathyroidism, secondary Hypothyroidism (acquired) Back pain Osteoarthritis of knees, bilateral Partial tear of left Achilles tendon Partial tear of right Achilles tendon History of orthostatic hypotension Labile hypertension Chest pain (Acute) Balance problems Hyperparathyroidism, secondary Acute on chronic renal insufficiency 03/01/23 Osteoporosis Osteopenia Achilles rupture, left 11/04/22 Achilles rupture, right 11/04/22 Orthostatic hypotension BATES (dyspnea on exertion) Presence of drug coated stent in left circumflex coronary artery (12/2021) Orthostatic lightheadedness Chronic renal insufficiency (Acute) Dizziness (Acute) Lab test negative for COVID-19 virus (Acute) Hx of coronary artery disease (Acute) Near syncope (Acute) Gout flare Bilateral Achilles tendonosis Sinusitis 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 s/p single FERNANDO mid circ 12/20/2021 Gout (Acute) S/P drug eluting coronary stent placement Admitted to intensive care unit Mitral regurgitation CKD (chronic kidney disease) stage 4, GFR 15-29 ml/min (Acute) Tobacco use (Acute) Essential hypertension Positive colorectal cancer screening using Cologuard test Positive colorectal cancer screening using Cologuard test Compression fracture of T3 vertebra Elevated hemoglobin A1c Encounter for pre-operative examination Hypothyroidism Grief reaction Inflamed seborrheic keratosis Skin abnormality Diverticulum of bladder BPH w urinary obs/LUTS High prostate specific antigen (PSA) Ascending aortic aneurysm Cervical facet joint syndrome (Chronic) COPD (chronic obstructive pulmonary disease) (Chronic) Bilateral sensorineural hearing loss (Acute) Vitamin B12 deficiency (Acute) Sleep apnea (Acute) NO DEVICE (COULD NOT TOLERATE) Proteinuria (Acute) Lumbar radiculopathy (Acute) Chronic back pain (Acute) Anemia (Acute) Alcohol dependence (Acute) QUIT 2018 Lower urinary tract symptoms (LUTS) History of cervical spinal surgery (Chronic) C3-5 ACDF Hyperlipidemia Asthma (Chronic) PTSD (post-traumatic stress disorder) (Chronic) Medical History Difficult intubation s/p cervical spine surgery Hx of hepatitis "[place], I was in the hospital for 5 days in the field from drinking untreated water" Carotid artery stenosis S/P RIGHT CEA (08/2018) Diverticular disease "found on colonoscopy" HTN (hypertension) controlled, stable per pt Atrial fibrillation "Slight" just completed Holter Monitor 05/2024 Sleep apnea can't tolerate device Hx of chest pain no current issues at this time Osteoporosis Pulmonary nodules Follows [facility] Dr Aurelio Camacho Mitral regurgitation Hypothyroidism BATES (dyspnea on exertion) "Not just moving around - its when I am doing extensive work like gardening" CAD (coronary artery disease) Dr Carrion Balance problems "Due to both achilles tendon tears" denies repair. doesn't use walker/cane/w heelchair COPD (chronic obstructive pulmonary disease) exacerbation 3 weeks ago-states he completed a course of doxycycline and prednisone CKD (chronic kidney disease) stage 3, GFR 30-59 ml/min Pt denies Follows Dr. Thomas Ascending aortic aneurysm "PCP/Dr. Patel monitors" Arthritis BPH (benign prostatic hyperplasia) History of colon cancer "removed 2 cancerous colon polyps - colonoscopys have came back clean ever since" Hx of gout no recent flares Anxiety and depression Temporomandibular joint dysfunction syndrome pt denies Seasonal allergies Scoliosis Deviated nasal septum Benign essential tremor Hands Pt denies Osteoarthritis GERD (gastroesophageal reflux disease) Controlled, stable per pt Hearing deficit Bilateral Hearing Aids Post traumatic stress disorder Degenerative disc disease Asthma stable per pt; last rescue albuterol inhaler use last week per patient, notes improvement after starting dupixent injections Surgical History History of heart artery stent x2 2021 Hx of cervical spine surgery C3-5 ACDF 2017 History of cataract surgery Right History of difficult intubation C3-5 ACDF= 08/23/17= Grade view 2, Glidescope#4, ETT 8.0 (Head/neck neutral for intubation) at [facility] History of right-sided carotid endarterectomy History of lumbar fusion L4-L5 History of tooth extraction History of tonsillectomy History of total shoulder replacement Bilateral History of total knee replacement Left History of esophagogastroduodenoscopy (EGD) History of colonoscopy with polypectomy History of cardiac cath - No Stents 2021 - With Stents x2 Family History Sister Breast cancer Cancer Hypertension Brother Myocardial infarction COPD (chronic obstructive pulmonary disease) Hypertension Father Hypertension Mother Hypertension Other No family history of adverse response to anesthesia Denies family history of Ovarian cancer Prostate cancer Diabetes Colorectal cancer Social History Smoking Status: Former smoker Tobacco Type: Cigarettes and Smokeless Tobacco (Dip or Chew) Age Started Using Tobacco: 14; Age Quit Using Tobacco: 36; packs per day: 2; Second Hand Exposure: No; Do You Dip or Chew Tobacco: Yes (Advised); Tobacco Cessation Education Requested by Patient: No Hx Alcohol Use: No Hx Substance Use: No Preferred Language: Macanese Communication Ability: Effective Visual Impairment: No Limitations Hearing Ability: Use of Hearing Aid Hot 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 Required: No Beliefs That Will Affect Care: None marital status: / Current Living Situation: Alone current occupational status: retired 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 Physical Exam On physical exam of the right knee, he has a slight varus deformity. Tenderness to palpation of the distal medial femoral condyle and over the medial joint line.. Constitutional WD/WN, vitals as above Eyes PERRL, conjunctivae normal, anicteric sclerae ENMT external ear and nose normal, oropharynx normal Neck trachea midline, no thyromegaly Respiratory normal respiratory effort Cardiovascular RRR, no murmur, no edema Gastrointestinal (Abdomen) normal bowel sounds, soft, nontender, no hepatosplenomegaly Psychiatric A+Ox3, euthymic affect Results & Data Results & Data Laboratory Results . Diagnostic Findings X-rays of the right knee show advanced osteoarthritis with joint space narrowing, osteophyte formation, and garh-lf-jrho articulation. PG Care Time/CCT Total # of Minutes Spent Total Time Spent with Patient: Total time spent is greater than 50% in coordination of care (as documented) at patient's floor/unit and/or counseling patient: Coding Level of Care Code None Diagnoses Osteoarthritis of right knee M17.11
[~2024-08-18 08:37] MED LIST changes: -ACETAMINOPHEN 500 MG TAB PO SCH; +BUPIVACAINE 0.25% PF 30 ML VIAL ONE; +BUPIVACAINE 0.5 % 5 MG/1 ML PF 10ML VIAL ONE; -BUPIVACAINE/EPINEPHRINE 0.5% MPF 1:200,000 30 ML VIAL ONE; -CEFAZOLIN 1000MG 1,000 MG/7.5 ML SYR IV SCH; -CeleBREX 200 MG CAP PO SCH; -FAMOTIDINE 20 MG TAB PO SCH; -GABAPENTIN 300 MG PO SCH; -LR 15ML/HR IV SCH; -METOCLOPRAMIDE HCL 10 MG TABLET PO SCH; -ROPIVACAINE 0.5% 5 MG/ML 30 ML VIAL ONE; -dexAMETHasone 4 MG TAB PO SCH
[2024-08-18] MEDS: LR 500ML BOLUS, THEN 15ML/HR IV SCH (10:00)
[2024-08-18] MEDS: LR 60ML/HR IV SCH (10:01)
[2024-08-18] MEDS: ACETAMINOPHEN 500 MG TAB PO SCH ×2 (10:03→17:00)
[2024-08-18] MEDS: GABAPENTIN 300 MG CAP PO SCH (10:03)
[2024-08-18] MEDS: FAMOTIDINE 20 MG TAB PO SCH (10:03)
[2024-08-18] MEDS: dexAMETHasone**PF** 10 MG/ML VIAL IV SCH (10:04)
--- NOTE | 2024-08-18 10:04 | History & Physical Bridge Note ---
Date of Service August 18, 2024 History & Physical Bridge Note I have examined the patient, reviewed the History & Physical and in the interval since the performance of the History & Physical I have noted the following changes of clinical significance: no changes noted
[2024-08-18] MEDS ORDERED: PHENYLEPHRINE 100MCG/ML 10ML SYR IV ONE (10:08)
[2024-08-18] MEDS ORDERED: PROPOFOL IV EMULSION 10 MG/ML 20 ML VIAL IV ONE (10:08)
[2024-08-18] MEDS ORDERED: MIDAZOLAM HCL 1 MG/ML 2ML VIAL ONE (10:08)
[2024-08-18] MEDS ORDERED: ONDANSETRON INJ 2 MG/ML 2 ML VIAL ONE (10:08)
[2024-08-18] MEDS ORDERED: ePHEDrine sulfate 50 MG/ML AMP IV PRN (10:44)
[2024-08-18] MEDS ORDERED: fentaNYL citrate PF 100 MCG/2 ML VIAL IV PRN (10:44)
[2024-08-18] MEDS ORDERED: ATROPINE SULFATE 0.1 MG/ML 10ML SYR IV PRN (10:44)
[2024-08-18] MEDS ORDERED: ONDANSETRON INJ 2 MG/ML 2 ML VIAL IV PRN ×2 (10:44→14:01)
[2024-08-18] MEDS: TRANEXAMIC ACID 1,000 MG **IV Pre-op IV SCH (10:56)
[2024-08-18] MEDS: ceFAZolin 2000MG 2,000 MG/15 ML SYR IV SCH ×2 (11:07→21:30)
[2024-08-18] MEDS: BUPIVACAINE/EPINEPHRINE 0.5% MPF 1:200,000 30 ML VIAL ONE (11:32)
[2024-08-18] MEDS: TRANEXAMIC ACID 1,000 MG **IV Intra-op IV SCH (12:05)
--- NOTE | 2024-08-18 12:12 | Operative Report ---
PG Post Operative Report Pre & Post Diagnosis Operation Date: 08/18/24 11:00 Pre-Op Diagnosis: Degenerative Joint Disease Right Knee Post-Op Diagnosis: Degenerative Joint Disease Right Knee I identified the patient and participated in the time-out.: Yes Procedure Operation Date: 08/18/24 11:00 Actual Procedures p Right Total Knee Arthroplasty(Right) - Alejandro Phillips DO Surgeon Alejandro Phillips DO Clamp Jig Assembler Alejandro Mariano PA-C Estimated Blood Loss 30 Findings Consistent with Post-Op Diagnosis Specimens Right femoral and tibial bone Description of Procedure Implants used: I used a Des Persona total knee arthroplasty system with a size 10 standard PS femur, G tibia, 37 oval patella, and a size 10 CPS polyethylene bearing. All components were cemented in place with Biomet cement. Steve arrived [facility] for the above procedure. He was seen in the preoperative holding area and the operative extremity was identified and signed. He was given a preoperative antibiotic, TXA, a spinal anesthetic and an adductor nerve block. He was taken back to the operating room and laid on the table in supine position. He was given basic sedation. The operative knee was then prepped and draped in sterile fashion. A timeout was done, and the patient and the operative extremity was properly identified. A midline incision was made directly over the patella. Dissection was taken down to the extensor mechanism. A medial parapatellar arthrotomy was used. The medial retinaculum was released and the fat pad was mostly excised. The knee was flexed and the ACL, PCL, and meniscus were removed. A drill was sent down the center of the femoral canal followed by an intramedullary evangelina. Off that evangelina a distal femoral cutting block was placed. 9 mm was resected off the distal femur at 5 of valgus. A posterior referencing AP sizing guide was then placed on the distal femur. The femur measured to be a size 10. 2 drill holes were placed in 3 of external rotation. A 4-in-1 cutting block was then impacted into place. Anterior, posterior, and chamfer cuts were then made. The proximal tibia was then exposed. An external tibial alignment guide was placed. A tibial cut guide was then anchored in place and the proximal tibia was then resected. The posterior aspect of the knee was then opened up and any additional meniscus fragments and osteophytes were removed. The tibia measured to be a size G. The tibial plate was then placed in the appropriate rotation and the tibia was drilled and punched. Trial components were then placed. I used a size 10 CPS polyethylene insert. The knee was brought through a full range of motion and felt to be stable. The peg holes for the femoral component were then drilled. The patella was then everted and 9 mm was resected off the posterior aspect of the patella. The patella measured to be a size 37 oval. 3 peg holes were then drilled. A trial patella was placed. The knee was once again brought through a full range of motion and felt to be stable. Trial components were then removed. The surrounding soft tissues were injected with 100 cc of an orthopedic pain control cocktail. All components were then cemented into place with Biomet cement. The final polyethylene insert was then snapped into place. Once cement was dry the tourniquet was deflated. Hemostasis was obtained. A dilute betadyne lavage was then done for 3 minutes. The joint was then irrigated with normal saline solution. The medial parapatellar arthrotomy was then closed with #1 Vicryl suture. The skin was closed with 2-0 Vicryl, 3-0V lock suture, and mari. A soft compressive dressing was placed. He was then transferred to a hospital bed and taken to the postanesthesia care unit in stable condition. He tolerated the procedure well. Alejandro Mariano PA-C, was present for the entire procedure. He was critical for patient positioning, prepping, draping, retraction exposure, wound closure and application of sterile dressing. I attest to the content of the Intraoperative Record and any orders documented therein. Any exceptions are noted below.
--- NOTE | 2024-08-18 13:07 | XRay Report ---
XR knee RT 1 or 2V routine CLINICAL HISTORY: Surgical Post Op TECHNIQUE: 2 views of the right knee were obtained. Comparison: None available at the time of this dictation. FINDINGS: Patient is status post total knee arthroplasty with expected postsurgical changes including soft tiss ue swelling and subcutaneous emphysema. No periarticular lucency or hardware fracture is seen. IMPRESSION: Expected postoperative appearance status post placement of total knee arthroplasty. ACT 112: Negative or not required by law. Electronically signed by: Carloz Schilling M.D. 08/18/2024 1:06 PM
--- NOTE | 2024-08-18 13:18 | Anesthesiology Progress Note ---
Date of Service August 18, 2024 Anesthesia Post Procedure Vital Signs Vital Signs: Temp Pulse Pulse Resp BP Pulse Ox O2 Del Method 08/18/24 13:10 78 17 110/60 97 Nasal Cannula 08/18/24 13:00 74 19 99/67 L 99 Nasal Cannula 08/18/24 12:50 72 17 141/97 H 99 Nasal Cannula 08/18/24 12:40 71 18 110/46 L 96 Nasal Cannula 08/18/24 12:33 36.0 C L 67 16 121/70 99 Oxymask 08/18/24 09:41 36.6 C 80 20 145/80 H 96 Room Air O2 Flow Rate 08/18/24 13:10 4 08/18/24 13:00 4 08/18/24 12:50 4 08/18/24 12:40 4 08/18/24 12:33 6 08/18/24 09:41 Pain Intensity Right Knee: Pain Intensity: 6 Transfer of Care Handoff Completed per policy Notes Mental Status: alert / awake / arousable and participated in evaluation Patient Amnestic to Procedure: Yes Nausea / Vomiting: adequately controlled Pain: adequately controlled Airway Patency, RR, SpO2: stable & adequate BP & HR: stable & adequate Hydration State: stable & adequate Neuraxial Anesthesia: was administered and sensory block is resolving Anesthetic Complications: no major complications apparent and Pt Satisfied with anesthetic care
[2024-08-18] MEDS ORDERED: bisacodyL 10 MG SUPP PR PRN (14:01)
[2024-08-18] MEDS ORDERED: MAGNESIUM HYDROXIDE SUSP 30 ML UDC PO PRN (14:01)
[2024-08-18] MEDS ORDERED: NITROGLYCERIN SL 0.4 MG/TAB TAB SL PRN (14:01)
[2024-08-18] MEDS ORDERED: HYDROmorphone INJ 0.5 MG/0.5 ML SYR IV PRN (14:01)
[2024-08-18] MEDS ORDERED: FLUTICASONE PROPIONATE NA SPR 16 GM BTL PRN (14:01)
[2024-08-18] MEDS ORDERED: cloNIDine HCL 0.1 MG TAB PO PRN (14:01)
[2024-08-18] MEDS ORDERED: ALBUTEROL HFA 8 GM INHALER INH PRN (14:01)
[2024-08-18] MEDS ORDERED: NALOXONE HCL 0.4 MG/1 ML VIAL/CARP IV PRN (14:01)
[2024-08-18] MEDS ORDERED: METOCLOPRAMIDE HCL INJ 5 MG/ML 2 ML VIAL IV PRN (14:01)
[2024-08-18] MEDS: ORTHO JOINT ANESTHETIC ONE (16:29)
--- OUTSIDE RECORDS SUMMARY | 2024-08-18 16:33 | External Medical Summary | Summary of Care ---
Author Name Unknown Organization [facility] Address [address] [facility] [place] [address] Phone [phone] Care Team Providers Care Community Health Specialist Name Role Phone Israel Patel MD Primary Care Provi theodore Reason for Visit * Reason Onset Date Comments Appointment 08/07/2024 Encounter Details Date Type Department Care Team (Late st Contact Info) Description 08/07/2024 Telephone [address] [place] [id number] Emelyn Ballard, RT (R) Appointment Allergies Active Allergy Reactions Criticality Noted Date Comments Rosuvastatin Muscle pain 06/15/2018 Ketorolac Tromethamine 11/23/2001 toradol Oxycodone 03/07/2003 oxycontin-hallucinations Salicylates 11/23/2001 Simvastatin Muscle pain 06/15/2018 documented as of this encounter (statuses as of 08/07/2024) Medications Medication Sig Dispensed Refills Start Date End Date Status HYDROCHLOROTHIAZIDE 25 MG PO TABS one tab by mouth daily 34 5 05/07/2005 Active DONAVON 180 MG PO TABS one tab by mouth daily 30 5 05/07/2005 Active CARDIZEM CD 180 MG/24HR PO CPCR one tab by mouth daily 34 5 01/12/2006 Active PRILOSEC 20 MG PO CPDR one tab by mouth daily at bedtime 34 5 01/12/2006 Active albuterol (PROVENTIL HFA) 108 (90 BASE) MCG/ACT inhaler Inhale 2 Puffs by mouth every 4 hours as needed for Wheezing. Active cyclobenzaprine (FLEXERIL) 10 MG Tablet Take 10 mg by mouth 2 times a day as needed. Active Gabapentin (NEURONTIN) 600 MG Tablet Take 600 mg by mouth 3 times a day as needed. Active traZODone (DESYREL) 150 MG Tablet Take 150 mg by mouth at bedtime. Active venlafaxine XR (EFFEXOR XR) 150 MG CP24 Take 150 mg by mouth daily. Active Lisinopril-Hydrochlor othiazide 20-12.5 MG per tablet Take 1 Tab by mouth daily. Active prazosin (MINIPRESS) 2 MG Capsule Take 2 mg by mouth 2 times a day. Active allopurinol (ZYLOPRIM) 100 MG Tablet Take 100 mg by mouth daily. Active [place]-3 Fatty Acids (FISH OIL) 1000 MG Capsule Take 1,000 mg by mouth 2 times a day. Active folic acid 1 MG Tablet Take 1 mg by mouth daily. Active THIAMINE (VITAMIN B-1) 100 MG Tablet Take 100 mg by mouth daily. Active Loratadine 10 MG Cap Take 10 mg by mouth daily. Active CYANOCOBALAMIN (VITAMIN B-12) 100 MCG Tablet Take 100 mcg by mouth daily. Active hydrocodone-acetamino phen 5-300 mg per tab (VICODIN) 5-300 MG per tablet Take 1 Tab by mouth every 8 hours as needed for Pain, Moderate. Active budesonide-formoterol (SYMBICORT) 160-4.5 MCG/ACT inhaler Inhale 2 Puffs by mouth 2 times a day. Active Respiratory Therapy Supplies (NEBULIZER COMPRESSOR) KITIndications:as directed Indications: as directed Active guaiFENesin 200 MG Oral Tablet Take by mouth. As needed Active documented as of this encounter (statuses as of 08/07/2024) Active Problems Problem Noted Date Diagnosed Date COPD exacerbation Allergic rhinitis BENIGN HYPERTENSION Esophageal reflux Anxiety state Major depressive disorder Overview: ICD-10 update of inactive term Hearing loss DISC DIS [id number] DISC DIS EOP-REG-[id number] documented as of this encounter (statuses as of 08/07/2024) Social History Tobacco Use Types Packs/Day Years Used Date Smoking Tobacco: Former Smokeless Tobacco: Current Chew, Snuff Alcohol Use Standard Drinks/Week Comments Not Currently 0 (1 standard drink = 0.6 oz pure alcohol) As of 12.18.2006, the last noted alcohol intake was 36 ounces. Utilities Answer Date Recorded Do you have trouble paying y our heating, water, or electric bill? (Adult - for ages 18 years and over) Not on file 04/18/2024 Is your family able to pay t he heat, water, or electric bill? (Household - for ages 0-17 years) Not on file 04/18/2024 Does your family have access to good internet? (Household - for ages 0-17 years) Not on file 04/18/2024 Social Connections Answer Date Recorded How often do you feel lonely or isolated from those around you? (Adult - for ages 18 years and over) Not on file 04/18/2024 Sex and Gender Information Value Date Recorded Sex Assigned at Not on file Gender Identity Not on file Sexual Orientation Not on file Job Start Date Occupation Industry Not on file Not on file Not on file documented as of this encounter Miscellaneous Notes * Telephone Encounter - Emelyn Ballard RT (R) - 08/07/2024 2:31 PM EDT Name: Steve Tobar Chandler . Do you have any of the following: Pacemaker, stents, heart valves, aneurysm clips? Yes Have you ever worked with metal or have you ever gotten metal in your eyes? No Have you had a colonoscopy in the last 30 days? No On dialysis? No Do you have any dermals or body piercing's? No or ? no Do you wear an insulin pump or diabetic monitor? No No new tattoos RT Lyndsay (R) documented in this encounter Plan of Treatment Upcoming Encounters Date Type Department Care Team (Late st Contact Info) Description 08/10/2024 9:30 AM EDT Imaging Radiology [address] [place] [id number] Health Maintenance Due Date Last Done Comments Depression Monitoring 1952 Albumin/Creatinine Ratio 1958 Alpha-1 Antitrypsin 1958 O2 ASSESSMENT COMPLETED IN PAST YEAR FOR COPD 1958 DTap/Tdap Vaccines (1 - Tdap) 01/12/2001 01/11/2001 Zoster Vaccines (2 of 3) 06/01/2012 04/06/2012 GFR 10/16/2022 10/16/2021, 07/0 04/2006, 12/10/2003, Additional history exists COVID-19 Vaccine ( - 2023- season) 2024 Influenza Vaccine (FLU shot) (#1) 2024 08/03/2017, 07/28/2016, 07/19/2014, Additional history exists Pneumococcal Vaccine: 65+ Years Completed 06/24/2017, 10/19/2014, 12/01/2000 HPV (Gardasil) Vaccine Aged Out No lo nger eligible based on patient's age to complete this topic Hepatitis B Vaccine Aged Out No longe r eligible based on patient's age to complete this topic MENINGOCOCCAL (MENACTRA/MENVEO) Aged Out No longer eligible based on patient's age to complete this topic documented as of this encounter Medical Devices Not on filedocumented as of this encounter Care Teams Community Health Specialist Relationship Specialty Start Date End Date Israel Patel MD [address] [place] [address] [place] [id number] PCP - General Internal Medicine 06/15/18 documented as of this encounter
[2024-08-18] MEDS: ALLERGY Noted to ORDERED Medication SCH (16:46)
[2024-08-18] MEDS: [UNRECOGNIZED DRUG - REMARK] SCH (17:00)
[2024-08-18] MEDS: DOCUSATE SODIUM 100 MG CAP PO SCH (21:11)
[2024-08-18] MEDS: allopurinoL 100 MG TAB PO SCH (21:11)
[2024-08-18] MEDS: SENNA 8.6 MG TAB PO SCH (21:11)
[2024-08-18] MEDS: traZODone HCL 50 MG TAB PO SCH (21:21)
[2024-08-18] MEDS: SODIUM CHLORIDE 0.9% 1,000 ML IV SCH (21:29)
[2024-08-18] MEDS ORDERED: Nursing to Pharmacy Communication SCH (23:45)
[2024-08-19 00:02] VITALS: RESP 18
[2024-08-19] MEDS: oxyCODONE HCL IR 5 MG TAB (IMMEDIATE RELEASE) PO PRN (00:38)
[2024-08-19] MEDS: LEVOTHYROXINE SODIUM 50 MCG TABLET PO SCH (06:32)
[2024-08-19 07:24] VITALS: BP 147/76; PULSE 69; TEMP 98.1; O2SAT 99
[2024-08-19] MEDS: APIXABAN 2.5 MG TAB PO SCH (08:03)
[2024-08-19] MEDS: CETIRIZINE HCL 10 MG TABLET PO SCH (08:03)
[2024-08-19] MEDS: dexAMETHasone 4 MG TAB PO SCH (08:03)
[2024-08-19] MEDS: hydroCHLOROthiazide 25 MG TAB PO SCH (08:04)
[2024-08-19] MEDS: EZETIMIBE 10 MG TAB PO SCH (08:04)
[2024-08-19] MEDS: TAMSULOSIN HCL 0.4 MG CAP PO SCH (08:04)
[2024-08-19] MEDS: DULoxetine HCL 60 MG CAP PO SCH (08:04)
[2024-08-19] MEDS: MULTIVITAMIN TAB PO SCH (08:04)
[2024-08-19] MEDS: METOPROLOL SUCC 25MG EXT REL TAB PO SCH (08:04)
[2024-08-19] MEDS: PRAVASTATIN SOD 10 MG TAB PO SCH (08:04)
[2024-08-19] MEDS: CLOPIDOGREL BISULFATE 75 MG TAB PO SCH (08:04)
[2024-08-19] MEDS: UMECLIDINIUM BROMIDE 62.5MCG/BLISTER 7 PUFFS/INHALER INH SCH (08:05)
[2024-08-19] MEDS: FLUTICASONE/VILANTEROL 100/25MCG 14 PUFFS/INHALER INH SCH (08:05)
[2024-08-19] MEDS: FINASTERIDE 5 MG TAB PO SCH (08:05)
[2024-08-19] MEDS: LOSARTAN POTASSIUM 50 MG TAB PO SCH (08:05)
[2024-08-19] MEDS: MONTELUKAST SODIUM 10 MG TABLET PO SCH (08:05)
--- NOTE | 2024-08-19 09:40 | Orthopedic Progress Note ---
Date of Service August 19, 2024 Assessment & Plan (1) Status post right knee replacement: Overall he is doing fairly well. He is not having much pain in the right knee. He will be seen by physical therapy today for ambulation and range of motion exercises. He is on Eliquis for DVT prophylaxis. The nursing staff can change his dressing after physical therapy. He can be discharged home later today. He will follow-up orthopedics in 2 weeks. Lucía Wilson was seen and examined at bedside this morning. Overall he is doing fairly well. He is not having much pain in the right knee. He has been up and ambulating to the hallways. He has no complaints.. Review of Systems All systems reviewed & are unremarkable except as noted in HPI & below. Physical Exam On physical examination of the right knee, the dressing is clean and dry. His leg is out full extension. He has active dorsiflexion plantarflexion of his right ankle.. Results & Data Results & Data Laboratory Results . Diagnostic Findings Postoperative x-rays of the right knee show the prosthesis to be in anatomic alignment without any evidence of fracture, dislocation, or loosening.. PG Care Time/CCT Total # of Minutes Spent Total Time Spent with Patient: Total time spent is greater than 50% in coordination of care (as documented) at patient's floor/unit and/or counseling patient: Coding Level of Care Code 10094 Post Operative Follow-Up Diagnoses Status post right knee replacement Z96.651
--- NOTE | 2024-08-19 09:41 | Discharge Summary ---
Date of Service August 19, 2024 Admission HPI (Per Admitting) Steve is a pleasant 83-year-old male who has been dealing with a chronic increasingright knee pain. He hasbeen seeing my partners. He hasbeen diagnosed with arthritis of his knee and has failed extensive conservative treatment. He has a history of a left knee done by Dr. Marti 1999. After failing conservative treatment, he has elected proceed with a right total knee arthroplasty. Admission Exam (Per Admitting) On physical exam of the right knee, he has a slight varus deformity. Tenderness to palpation of the distal medial femoral condyle and over the medial joint line.. Principal Diagnosis Same as "Discharge Diagnosis" noted below under Discharge Instructions. Discharge Exam On physical examination of the right knee, the dressing is clean and dry. His leg is out full extension. He has active dorsiflexion plantarflexion of his right ankle.. Discharge Data Procedures Performed Operation Date: 08/18/24 11:00 Actual Procedures p Right Total Knee Arthroplasty(Right) - Alejandro Phillips DO Ordered Studies 08/18/24 05:00 US - OR guided needle placemen Routine Hospital Course (1) Status post right knee replacement: On August 18, 2024 Steve arrived at [facility] and underwent a right knee replacement without complication. He had a spinal anesthetic. Postoperatively he was started on Eliquis for DVT prophylaxis and transferred to the general orthopedic floors. His hospital course was uneventful. On postop day #1, his vital signs were stable and his pain was well-controlled. He was able to participate well with physical therapy doing ambulation and range of motion exercises. He was then discharged to home. He will follow-up orthopedics in 2 weeks. PG Care Time/CCT Total # of Minutes Spent Total Time Spent with Patient: Total time spent is greater than 50% in coordination of care (as documented) at patient's floor/unit and/or counseling patient: Discharge Plan Discharge Items Patient Disposition: Home - Self-Care Reason For Visit: Degenerative Joint Disease Right Knee Discharge Diagnosis: Right knee replacement Activity: Per Instructions section Non-emergency contact: Hospitalist Call non-emergency contact if: your wound has increased redness and your wound has increased drainage Follow-up/Referrals: Israel Patel MD [Primary Care Provider] - Diet: Regular Addtl Attending Provider Instructions: Activity and Therapy Recommendations: * If you are using [facility] then therapy will be provided at your home until they feel you have accomplished all of your goals. * If you are using [facility] then Physical Therapy will be provided until they feel you are ready to start Outpatient Physical Therapy. * If you are not using home therapy then Outpatient Physical Therapy should start about 3-5 days from your day of surgery. Therapy will last about 6-10 weeks * It is important not to put a pillow under your knee when you are relaxing or sleeping. It is just as important to make sure you are getting your knee perfectly straight as it is to regain your knee bend. * You were shown a series of exercises in the hospital. Do these exercises three times each day including the exercises you were shown in physical therapy. * Get up and walk several times each day. For the first four weeks, try not to stand or walk for more than one hour at a time. If you do stand or walk for more than one hour, you will not hurt anything, but your leg will likely swell. * As you feel comfortable, you may change from the walker or crutches to a cane and then to independent walking. Medications: * Narcotic You will likely be sent home from the hospital with a prescription for the narcotic pain medication that worked best throughout your stay. * Cefadroxil -take the antibiotic twice a day for 10 days to help prevent infection. * Continue your Eliquis as prescribed. * Other medications may be prescribed for specific circumstances. If you have any questions, please call the office at . * Resume previous home medications unless otherwise instructed TEDs/Elastic Stockings: The white elastic stockings help limit swelling and prevent blood clots from forming in your legs.~ The more you wear them, the more they work. Wear them for six weeks. Dressing Care: The dressing can be changed after physical therapy on postop day #1. Daily dry dressing changes for a few days, especially if the incision is still draining some. If the incision is not draining then you may leave the mari open to air. If there is a little bit of drainage or if the mari are getting stuck on your clothing then cover the incision with a dry dressing. The mari will be removed at your 2 week follow-up appointment. Showering: You may shower 5 days from the day of surgery as long as the incision is no longer draining. You may shower with the mari exposed. Let soapy water run over the mari and pat them dry. Do not scrub or soak the incision. Diet: You may resume your previous diet. Things To Watch For: * Drainage from the incision site that occurs more than one week after your surgery. * Increased redness at the incision site. * Fever above 102 degrees Fahrenheit. * Unusual chest pain or shortness of breath. * Call [facility] at with any of the above problems Follow-Up Visit: Follow-up with Dr. Phillips's PA (Alejandro Mariano) 2-3 weeks after your day of surgery. He will remove your mari and answer any questions. If you have any additional questions or concerns, Dr Phillips is usually in the office at the same time and will be available An appointment was probably scheduled when you signed-up for surgery in the office. If you have any questions call Office Instructions: More detailed instructions as well as Frequently Asked Questions were provided in a folder by our office when you signed-up for surgery. Please review these instructions when you get home. If you have any further questions or concerns, please feel free to call the office at [phone] Pending Studies at Discharge: No Stand-Alone Forms: My [facility], Pain - Opioid Pain Management, Smoking Cessation Medications and DC Order Prescriptions: New oxycodone 5 mg Tablet 5 mg PO Q4H PRN (Reason: pain) Qty: 30 0RF cefadroxil 500 mg capsule 500 mg PO BID 10 Days Qty: 20 0RF Continued nitroglycerin [Nitrostat] 0.4 mg tablet, sublingual 0.4 mg sublingual PRN PRN (Reason: chest pain) Qty: 25 5RF Eliquis 2.5 mg tablet 2.5 mg PO BID Qty: 180 3RF Prolia 60 mg/mL syringe 60 mg subcut Q6MO 365 Days Qty: 1 1RF Patient Comments: "I think this is once a year not every 6 months - last injection was 11/2023" albuterol sulfate 90 mcg/actuation HFA aerosol inhaler 2 puff INHALATION Q6H PRN (Reason: Shortness Of Breath) Qty: 8.5 4RF Rx Instructions: Per [place] Pharmacist, script is . Filled january 09, 2022 dupilumab [Dupixent Pen] See Rx Instructions subcut .COMPLEX Rx Instructions: 1 inj subcutaneously Q 2WK; clonidine HCl 0.1 mg tablet 0.1 mg PO TID PRN (Reason: PRN SBP>180) Qty: 90 2RF Spiriva Respimat 2.5 mcg/actuation mist 2 inh inhalation QAM duloxetine 60 mg capsule,delayed release(DR/EC) 60 mg PO QAM Patient Comments: Rx by psych levocetirizine 5 mg tablet 2.5 mg PO QAM clopidogrel [Plavix] 75 mg tablet 75 mg PO DAILY Qty: 14 0RF doxycycline monohydrate 100 mg capsule 100 mg PO BID Qty: 24 0RF methylprednisolone 4 mg tablets,dose pack 4 mg PO DAILY 12 Days Qty: 42 1RF Rx Instructions: Take 6 tabs x 2 days, then 5 tabs x 2 days, 4 tabs x 2 days, 3 tabs x 2 days, 2 tabs x 2 days, 1 tab x 2 days, then D/C thiamine HCl (vitamin B1) 100 mg Tablet 100 mg PO QAM allopurinol 100 mg Tablet 200 mg PO QPM Rx Instructions: 2 tabs at bedtime to prevent gout pravastatin 10 mg Tablet 10 mg PO QAM Qty: 30 2RF olopatadine 0.1 % drops 1 drp ophthalmic (eye) DAILY omega-3 fatty acids 1,000 mg Capsule 1,000 mg PO QAM Rx Instructions: No order on file from [place] garlic 500 mg Capsule 500 mg PO QAM Rx Instructions: [place] Pharmacist unable to verify cyanocobalamin (vitamin B-12) 100 mcg Tablet 100 mcg PO QAM folic acid 1 mg Tablet 1 mg PO Q2D fluticasone propionate [Allergy Relief (fluticasone)] 50 mcg/actuation spray,suspension 1 spray intranasal BID PRN (Reason: Allergy Symptoms) Rx Instructions: administer into each nostril once daily trazodone 50 mg tablet 75 mg PO HS losartan 50 mg tablet 50 mg PO QAM metoprolol succinate 50 mg tablet extended release 24 hr 75 mg PO QAM prednisone 20 mg tablet 20 mg PO .COMPLEX PRN (Reason: Lung Infection) Patient Comments: "Only if I get an infection in my lungs" Rx Instructions: 20 mg PO; 3 tablets PO x 3 days; 2 tablets PO x 3 days; 1 tablets PO x 3 days; 1/2 tablet PO x 4 days tamsulosin [Flomax] 0.4 mg capsule 0.4 mg PO QAM levothyroxine 50 mcg tablet 50 mcg PO QAM omeprazole 20 mg capsule,delayed release(DR/EC) 20 mg PO QAM montelukast [Singulair] 10 mg tablet 10 mg PO QAM finasteride 5 mg tablet 5 mg PO QAM Patient Comments: QPM ezetimibe 10 mg tablet 10 mg PO QAM hydrochlorothiazide 12.5 mg tablet 12.5 mg PO QAM fluticasone propion-salmeterol [Wixela Inhub] 500-50 mcg/dose Blister With Device 1 inh INHALATION QAM Discharge Orders: Discharge Order (Routine); Ordered 08/19/24 Ordered By: Alejandro Cortez/Other Patient Handouts: DVT Post Op Prevention Admission Data Admit Date/Time: 08/18/24 12:39 Attending Provider: Alejandro Phillips Admit Provider: Alejandro Phillips Primary Care Provider: Israel Patel
== END 2024-08-19 11:30 | disposition home or self-care (01) ==
LOC: ASU 08:37 → PACUINP 08:37 → 3E 15:44

== ENCOUNTER 2024-08-24 13:30 | Inpatient (IN) ==
[2024-08-24 14:14] LABS: Basophils # (auto) 0.01 K/uL (0.00-0.20); Basophils % (auto) 0.1 %; Eosinophils # (auto) 0.12 K/uL (0.00-0.50); Eosinophils % (auto) 1.7 %; Immature Granulocytes # (auto) 0.04 K/uL (0.01-0.20); Immature Granulocytes % (auto) 0.6 %; Lymphocytes # (auto) 1.03 K/uL (1.20-3.40); Lymphocytes % (auto) 14.3 %; Mean Corpuscular Hemoglobin 30.4 pg (25.0-34.0); Mean Corpuscular Hgb Conc 33.3 g/dL (32.0-36.0); Mean Corpuscular Volume 91.2 fL (80.0-100.0); Mean Platelet Volume 9.9 fL (9.4-12.4); Monocytes % (auto) 9.7 %; Neutrophils # (auto) 5.31 K/uL (1.40-6.50); Neutrophils % (auto) 73.6 %; Platelet Count 284 K/uL (130-400); RDW Coefficient of Variation 14.2 % (11.5-14.5); RDW Standard Deviation 47.2 fL (36.4-46.3); Red Blood Count 3.62 M/uL (4.70-6.10); White Blood Count 7.21 K/ul (4.8-10.8)
[2024-08-24 14:30] LABS: Alanine Aminotransferase 3 U/L (7-52); Albumin Level 3.3 gm/dl (3.4-5.0); Alkaline Phosphatase 44 U/L (34-104); Anion Gap 8 (3-11); Aspartate Aminotransferase 13 U/L (13-39); BUN Creatinine Ratio 15.9 (10-20); Bilirubin,Total 0.6 mg/dl (0.2-1.0); Blood Urea Nitrogen 32 mg/dl (6-23); Calcium 8.6 mg/dl (8.6-10.3); Carbon Dioxide 21 mmol/L (21-32); Chloride 105 mmol/L (98-107); Globulin 3.4 gm/dl (2.5-4.0); Glucose 109 mg/dl (70-99(Fasting)); Potassium 4.3 mmol/L (3.5-5.1); Sodium 134 mmol/L (136-145); Total Protein 6.7 gm/dl (6.0-8.3)
[2024-08-24 14:35] LABS: Troponin I High Sensitivity 13.1 pg/ml (0-20)
[2024-08-24 14:43] LABS: Partial Thromboplastin Time 28 Seconds (21-31); Prothrombin Time 10.4 Seconds (9.0-12.0)
--- NOTE | 2024-08-24 14:53 | XRay Report ---
XR chest 1V portable HISTORY: 83 years-old Male Chest pain, nonspecific COMPARISON: 07/17/2024 TECHNIQUE: AP view of the chest FINDINGS: Cardiac silhouette is normal. Lungs are clear. No pneumothorax or pleural effusion. Bilateral shoulde r arthroplasties. Spondylitic spurring of the spine. IMPRESSION: No acute process. ACT 112: Negative or not required by law. The above report was generated using voice recognition software. It may contain grammatical, syntax o r spelling errors. Electronically signed by: Kit Crow M.D. 08/24/2024 2:51 PM
[2024-08-24] MEDS: OPTIRAY 320 125ml IV ONE (15:45)
[2024-08-24] MEDS: ALBUTEROL 0.5% NEB SOLN 2.5 MG/0.5 ML VIAL NEB STA (16:01)
--- NOTE | 2024-08-24 16:06 | Emergency Department Note ---
Impression & Plan Pulmonary embolism ED Provider Note NAME: RUPERT FLORES AGE: 83 SEX: M : 1940 ARRIVES VIA: Walk-In INFORMANT: Patient, ED PROVIDER(S): Kendall Stringer MD CHIEF COMPLAINT: Shortness of breath HPI: This is an 83-year-old male presenting for shortness of breath. Patient had a right knee replacement done last week. Since then he has been having increasing difficulty breathing. He did have to stop his Eliquis about 3 days prior to the replacement of his knee. He had restarted his Eliquis. Patient notes that he is increasing shortness of breath specific with exertion. He notes history of COPD, asthma. He also notes difficulty with feel he is in a pass out when he walks. ROS: See above HPI for pertinent positives & negatives. A total of 10 systems reviewed and were otherwise negative. PAST MEDICAL HISTORY: See Below PAST SURGICAL HISTORY: See Below FAMILY HISTORY: See Below SOCIAL HISTORY: See Below HOME MEDICATIONS: See Below ALLERGIES: See Below VITALS: See Below PHYSICAL EXAMINATION: General: resting comfortably in no acute distress Head: Normocephalic and atraumatic Eyes: Normal inspection, extraocular muscles intact Ear, nose, throat: Normal external exam Neck: Normal range of motion Respiratory: lungs clear to auscultation bilaterally Cardiovascular: Regular rate/rhythm, no murmur GI: soft, nontender, no guarding or rebound Extremities: nontender, moves all extremities Neuro: The patient awake and alert, appropriately conversive, no focal deficits, symmetric faces Skin: Warm, dry, and intact MEDICAL DECISION MAKING: This is a 83-year-old male presenting for shortness of breath. Patient is conversationally dyspneic. He has poor air movement with give albuterol at this time. Also considered PE as patient stopped Eliquis prior to procedure. -Blood was reviewed showing slight anemia to 11. Otherwise notes of electrolyte disturbances. Patient creatinine is 2.01. Otherwise troponin is 13.1 -CT of the chest revealed segmental and subsegmental pulmonary emboli in the branches of the right/left upper lobes distal cardiomegaly with advanced atherosclerosis -Patient was admitted under Dr. Mace after discussion -Will give IV heparin at this time with no bolus as patient is on Eliquis PE, rential diagnosis: Pneumonia, COPD ER treatment provided: See below Independent History obtained from: [facility] interpreted by me: ECG: ECG independently interpreted by me with normal sinus rhythm, rate of 95, normal axis, normal OH, normal QRS, normal QTc, no ST segment elevations consistent with STEMI criteria, occasional PVC Cardiac Monitoring: An order was placed for continuous cardiac monitoring. The monitor shows a rate of 82 with sinus rhythm. Laboratory studies: As stated above and show below. Imaging studies: See below. Critical Care Note: I have personally spent 35 minutes of critical care time in the direct management of this patient. This includes bedside care, interpretation of diagnostic studies, and testing, discussion with consultants, patient, and family members, and other required patient management activities. This 35 minutes is in excess of all separately billable procedures. Past Med/Surg History Problem List (Updated 08/24/24 @ 20:49 by Kendall Stringer MD) Pulmonary embolism (Acute) Pulmonary embolism, bilateral Status post right knee replacement (~08/2024) Atypical chest pain Bronchitis Intercostal muscle strain Osteoarthritis of right knee History of left knee surgery Neck Pain Osteopenia Chondrocalcinosis of right knee Chest pain (Acute) Gait disturbance Hyperparathyroidism, secondary Hypothyroidism (acquired) Back pain Osteoarthritis of knees, bilateral Partial tear of left Achilles tendon Partial tear of right Achilles tendon History of orthostatic hypotension Labile hypertension Chest pain (Acute) Balance problems Hyperparathyroidism, secondary Acute on chronic renal insufficiency 03/01/23 Osteoporosis Osteopenia Achilles rupture, left 11/04/22 Achilles rupture, right 11/04/22 Orthostatic hypotension BATES (dyspnea on exertion) Presence of drug coated stent in left circumflex coronary artery (12/2021) Orthostatic lightheadedness Chronic renal insufficiency (Acute) Dizziness (Acute) Lab test negative for COVID-19 virus (Acute) Hx of coronary artery disease (Acute) Near syncope (Acute) Gout flare Bilateral Achilles tendonosis Sinusitis 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 s/p single FERNANDO mid circ 12/20/2021 Gout (Acute) S/P drug eluting coronary stent placement Admitted to intensive care unit Mitral regurgitation CKD (chronic kidney disease) stage 4, GFR 15-29 ml/min (Acute) Tobacco use (Acute) Essential hypertension Positive colorectal cancer screening using Cologuard test Positive colorectal cancer screening using Cologuard test Compression fracture of T3 vertebra Elevated hemoglobin A1c Encounter for pre-operative examination Hypothyroidism Grief reaction Inflamed seborrheic keratosis Skin abnormality Diverticulum of bladder BPH w urinary obs/LUTS High prostate specific antigen (PSA) Ascending aortic aneurysm Cervical facet joint syndrome (Chronic) COPD (chronic obstructive pulmonary disease) (Chronic) Bilateral sensorineural hearing loss (Acute) Vitamin B12 deficiency (Acute) Sleep apnea (Acute) NO DEVICE (COULD NOT TOLERATE) Proteinuria (Acute) Lumbar radiculopathy (Acute) Chronic back pain (Acute) Anemia (Acute) Alcohol dependence (Acute) QUIT 2019 Lower urinary tract symptoms (LUTS) History of cervical spinal surgery (Chronic) C3-5 ACDF Hyperlipidemia Asthma (Chronic) PTSD (post-traumatic stress disorder) (Chronic) Medical History (Updated 08/24/24 @ 20:49 by Kendall Stringer MD) History of posttraumatic stress disorder (PTSD) Difficult intubation s/p cervical spine surgery Hx of hepatitis "In [place] war, I was in the hospital for 5 days in the field from drinking untreated water" Carotid artery stenosis S/P RIGHT CEA (08/2018) Diverticular disease "found on colonoscopy" HTN (hypertension) controlled, stable per pt Atrial fibrillation "Slight" just completed Holter Monitor 05/2024 Sleep apnea can't tolerate device Hx of chest pain no current issues at this time Osteoporosis Pulmonary nodules Follows [facility] Dr Aurelio Camacho Mitral regurgitation Hypothyroidism BATES (dyspnea on exertion) "Not just moving around - its when I am doing extensive work like gardening" CAD (coronary artery disease) Dr Carrion Balance problems "Due to both achilles tendon tears" denies repair. doesn't use walker/cane/wheelchair COPD (chronic obstructive pulmonary disease) exacerbation 3 weeks ago-states he completed a course of doxycycline and prednisone CKD (chronic kidney disease) stage 3, GFR 30-59 ml/min Pt denies Follows Dr. Thomas Ascending aortic aneurysm "PCP/Dr. Patel monitors" Arthritis BPH (benign prostatic hyperplasia) History of colon cancer "removed 2 cancerous colon polyps - colonoscopys have came back clean ever since" Hx of gout no recent flares Anxiety and depression Temporomandibular joint dysfunction syndrome pt denies Seasonal allergies Scoliosis Deviated nasal septum Benign essential tremor Hands Pt denies Osteoarthritis GERD (gastroesophageal reflux disease) Controlled, stable per pt Hearing deficit Bilateral Hearing Aids Post traumatic stress disorder Degenerative disc disease Asthma stable per pt; last rescue albuterol inhaler use last week per patient, notes improvement after starting dupixent injections Surgical History (Updated 08/18/24 @ 13:43 by Alejandro Phillips DO) History of heart artery stent x2 2021 Hx of cervical spine surgery C3-5 ACDF 2017 History of cataract surgery Right History of difficult intubation C3-5 ACDF= 08/23/17= Grade view 2, Glidescope#4, ETT 8.0 (Head/neck neutral for intubation) at [facility] History of right-sided carotid endarterectomy History of lumbar fusion L4-L5 History of tooth extraction History of tonsillectomy History of total shoulder replacement Bilateral History of total knee replacement Left History of esophagogastroduodenoscopy (EGD) History of colonoscopy with polypectomy History of cardiac cath - No Stents 2021 - With Stents x2 Family History Sister Breast cancer Cancer Hypertension Brother Myocardial infarction COPD (chronic obstructive pulmonary disease) Hypertension Father Hypertension Mother Hypertension Other No family history of adverse response to anesthesia Denies family history of Ovarian cancer Prostate cancer Diabetes Colorectal cancer Social History Smoking Status: Unknown if ever smoked Tobacco Type: Cigarettes and Smokeless Tobacco (Dip or Chew) Age Started Using Tobacco: 14; Age Quit Using Tobacco: 36; packs per day: 2; Second Hand Exposure: No; Do You Dip or Chew Tobacco: Yes (Advised); Hx Alcohol Use: No Hx Substance Use: No Preferred Language: Greenlandic Communication Ability: Effective Visual Impairment: No Limitations Hearing Ability: Use of Hearing Aid Library Clerical Assistant Required: No Beliefs That Will Affect Care: None marital status: / Current Living Situation: Alone current occupational status: retired 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, 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 How many Children do You have: 6 Feels Safe at Home: Yes Childhood Exposure to Second-Hand Smoke: Yes Diet: regular caffeine: Yes Dental Care, Regularly: No Physical Activity Frequency: Does not Exercise Seatbelt Use: always Sunscreen Use: Yes Assistive Devices: Cane, Crutches, Walker and Other Allergies Allergies Allergy/AdvReac Type Severity Reaction Status Date / Time aspirin Allergy Severe hives and Verified 08/18/24 10:34 mouth/throat swelling, hyperventilation ketorolac AdvReac Severe Avoids Verified 08/18/24 09:22 secondary to aspirin component levofloxacin AdvReac Severe Torn Verified 08/18/24 09:22 tendons in Legs oxycodone AdvReac Intermediate Mental Verified 08/18/24 09:22 Status Change/Hallucinations Cugzvpt-CXY-XbY Reductase AdvReac Intermediate severe Verified 08/18/24 09:22 Inhibitor muscle [Uwepxct-Okb-Tjr Reductase cramps Inhibitor] Home Meds Home Medications Medication Instructions Recorded Confirmed allopurinol 100 mg tablet 200 mg PO QPM 08/10/18 08/24/24 thiamine HCl (vitamin B1) 100 mg 100 mg PO QAM 08/10/18 08/24/24 tablet garlic 500 mg capsule 500 mg PO QAM 10/14/22 08/24/24 omega-3 fatty acids 1,000 mg 1,000 mg PO QAM 10/14/22 08/24/24 capsule cyanocobalamin (vitamin B-12) 100 100 mcg PO QAM 04/22/23 08/24/24 mcg tablet fluticasone propionate 50 1 spray intranasal BID PRN Allergy 04/22/23 08/24/24 mcg/actuation nasal Symptoms spray,suspension (Allergy Relief (fluticasone)) folic acid 1 mg tablet 1 mg PO Q2D 04/22/23 08/24/24 tiotropium bromide 2.5 2 inh inhalation QAM 09/21/23 08/24/24 mcg/actuation mist for inhalation (Spiriva Respimat) duloxetine 60 mg capsule,delayed 60 mg PO QAM 10/21/23 08/24/24 release levocetirizine 5 mg tablet 2.5 mg PO QAM allergy symptoms 10/21/23 08/24/24 olopatadine 0.1 % eye drops 1 drp ophthalmic (eye) DAILY PRN 10/21/23 08/24/24 Other trazodone 50 mg tablet 75 mg PO HS sleep 10/21/23 08/24/24 dupilumab [Dupixent Pen] See Rx Instructions subcut .COMPLEX 03/29/24 08/24/24 ezetimibe 10 mg tablet 10 mg PO QAM 07/05/24 08/24/24 finasteride 5 mg tablet 5 mg PO QAM 07/05/24 08/24/24 fluticasone 500 mcg-salmeterol 50 1 inh inhalation QAM 07/05/24 08/24/24 mcg/dose blistr powdr for inhalation (Wixela Inhub) hydrochlorothiazide 12.5 mg tablet 12.5 mg PO UD 07/05/24 08/24/24 levothyroxine 50 mcg tablet 50 mcg PO QAM 07/05/24 08/24/24 losartan 50 mg tablet 50 mg PO QAM 07/05/24 08/24/24 metoprolol succinate 50 mg 75 mg PO QAM 07/05/24 08/24/24 tablet,extended release 24 hr montelukast 10 mg tablet 10 mg PO QAM 07/05/24 08/24/24 (Singulair) omeprazole 20 mg capsule,delayed 20 mg PO QAM 07/05/24 08/24/24 release prednisone 20 mg tablet 20 mg PO .COMPLEX PRN Lung 07/05/24 08/24/24 Infection tamsulosin 0.4 mg capsule (Flomax) 0.4 mg PO QAM 07/05/24 08/24/24 cefadroxil 500 mg capsule 500 mg PO UD 08/24/24 08/24/24 clopidogrel 75 mg tablet (Plavix) 75 mg PO QAM 08/24/24 08/24/24 Previous Rx's Medication Instructions Recorded pravastatin 10 mg tablet 10 mg PO QAM #30 tabs 12/21/21 albuterol sulfate 90 mcg/actuation 2 puff inhalation Q6H PRN 07/29/22 aerosol inhaler Shortness Of Breath #8.5 grams clonidine HCl 0.1 mg tablet 0.1 mg PO TID PRN PRN SBP>180 #90 06/30/23 tabs nitroglycerin 0.4 mg sublingual 0.4 mg sublingual PRN PRN chest 07/08/23 tablet (Nitrostat) pain #25 tabs apixaban 2.5 mg tablet (Eliquis) 2.5 mg PO BID #180 tabs 05/24/24 denosumab 60 mg/mL subcutaneous 60 mg subcut Q6MO 365 days #1 mL 05/29/24 syringe (Prolia) oxycodone 5 mg tablet 5 mg PO Q4H PRN pain #30 tabs 08/19/24 Results & Data (ED) Vital Signs Vital Signs - 24 hr 08/24/24 13:35 08/24/24 13:49 08/24/24 14:00 Temperature 36.8 C Temperature Source Temporal Artery Scan Pulse Rate 108 H 104 H 96 H Pulse Rate from SpO2 Sensor Respiratory Rate 20 21 Respiratory Effort / Characteristics Non-Labored Spontaneous Respiratory Depth Normal Blood Pressure 113/79 181/90 H Blood Pressure Mean 90 120 Pulse Oximetry 99 99 Oxygen Delivery Method Room Air Room Air Oxygen Flow Rate Sepsis Recent Fever Within 48 Hours No Sepsis New/Unexplained Change in Mental Status No Sepsis Action Taken by Nursing No Action Required 08/24/24 14:05 08/24/24 14:20 08/24/24 15:03 Temperature Temperature Source Pulse Rate 87 Pulse Rate from SpO2 Sensor 88 Respiratory Rate 12 Respiratory Effort / Characteristics Respiratory Depth Blood Pressure Blood Pressure Mean Pulse Oximetry 97 97 93 Oxygen Delivery Method Room Air Room Air Oxygen Flow Rate 0 Sepsis Recent Fever Within 48 Hours Sepsis New/Unexplained Change in Mental Status Sepsis Action Taken by Nursing 08/24/24 15:35 08/24/24 16:03 08/24/24 16:32 Temperature Temperature Source Pulse Rate 96 H Pulse Rate from SpO2 Sensor 95 H 90 92 H Respiratory Rate 22 Respiratory Effort / Characteristics Respiratory Depth Blood Pressure 153/81 H Blood Pressure Mean 105 Pulse Oximetry 93 91 96 Oxygen Delivery Method Oxygen Flow Rate Sepsis Recent Fever Within 48 Hours Sepsis New/Unexplained Change in Mental Status Sepsis Action Taken by Nursing 08/24/24 16:53 08/24/24 17:17 08/24/24 17:32 Temperature Temperature Source Pulse Rate 104 H 106 H 97 H Pulse Rate from SpO2 Sensor 102 H 106 H 99 H Respiratory Rate 19 20 18 Respiratory Effort / Characteristics Respiratory Depth Blood Pressure 110/94 149/96 H Blood Pressure Mean 99 113 Pulse Oximetry 96 97 96 Oxygen Delivery Method Oxygen Flow Rate Sepsis Recent Fever Within 48 Hours Sepsis New/Unexplained Change in Mental Status Sepsis Action Taken by Nursing 08/24/24 17:48 08/24/24 18:09 08/24/24 18:27 Temperature Temperature Source Pulse Rate 96 H 94 H 97 H Pulse Rate from SpO2 Sensor 92 H 96 H Respiratory Rate 22 20 Respiratory Effort / Characteristics Respiratory Depth Blood Pressure 142/97 H Blood Pressure Mean 112 Pulse Oximetry 96 98 Oxygen Delivery Method Oxygen Flow Rate Sepsis Recent Fever Within 48 Hours Sepsis New/Unexplained Change in Mental Status Sepsis Action Taken by Nursing 08/24/24 19:09 08/24/24 19:36 Temperature Temperature Source Pulse Rate 88 82 Pulse Rate from SpO2 Sensor 94 H 81 Respiratory Rate 18 24 Respiratory Effort / Characteristics Respiratory Depth Blood Pressure 168/92 H 172/95 H Blood Pressure Mean 117 120 Pulse Oximetry 99 99 Oxygen Delivery Method Oxygen Flow Rate Sepsis Recent Fever Within 48 Hours Sepsis New/Unexplained Change in Mental Status Sepsis Action Taken by Nursing Laboratory Data 08/24/24 14:00 08/24/24 14:00 Lab Results 08/24/24 Range/Units 14:00 WBC 7.21 (4.8-10.8) K/ul RBC 3.62 L (4.70-6.10) M/uL Hgb 11.0 L (14.0-18.0) g/dl Hct 33.0 L (42.0-52.0) % MCV 91.2 (80.0-100.0) fL MCH 30.4 (25.0-34.0) pg MCHC 33.3 (32.0-36.0) g/dL RDW Std Deviation 47.2 H (36.4-46.3) fL RDW Coeff of Zelalem 14.2 (11.5-14.5) % Plt Count 284 (130-400) K/uL MPV 9.9 (9.4-12.4) fL Immature Gran % (Auto) 0.6 % Neut % (Auto) 73.6 % Lymph % (Auto) 14.3 % Tripp % (Auto) 9.7 % Eos % (Auto) 1.7 % Baso % (Auto) 0.1 % Neut # (Auto) 5.31 (1.40-6.50) K/uL Lymph # (Auto) 1.03 L (1.20-3.40) K/uL Tripp # (Auto) 0.70 H (0.11-0.59) K/uL Eos # (Auto) 0.12 (0.00-0.50) K/uL Baso # (Auto) 0.01 (0.00-0.20) K/uL Immature Gran # (Auto) 0.04 (0.01-0.20) K/uL ESR > 130 H (0-20) mm/hr PT 10.4 (9.0-12.0) Seconds INR 1.0 (0.9-1.1) APTT 28 (21-31) Seconds PTT Ratio 1.0 Sodium 134 L (136-145) mmol/L Potassium 4.3 (3.5-5.1) mmol/L Chloride 105 (98-107) mmol/L Carbon Dioxide 21 (21-32) mmol/L Anion Gap 8 (3-11) BUN 32 H (6-23) mg/dl Creatinine 2.01 H (0.6-1.4) mg/dl Est Cr Clr Drug Dosing Not Reportable eGFR 32.31 BUN/Creatinine Ratio 15.9 (10-20) Glucose 109 H (70-99(Fasting)) mg/dl Calcium 8.6 (8.6-10.3) mg/dl Magnesium 1.8 (1.7-2.4) mg/dl Total Bilirubin 0.6 (0.2-1.0) mg/dl AST 13 (13-39) U/L ALT 3 L (7-52) U/L Alkaline Phosphatase 44 (34-104) U/L Troponin I High Sens 13.1 (0-20) pg/ml C-Reactive Protein 18.23 H (0-0.5) mg/dl Total Protein 6.7 (6.0-8.3) gm/dl Albumin 3.3 L (3.4-5.0) gm/dl Globulin 3.4 (2.5-4.0) gm/dl Albumin/Globulin Ratio 1.0 (0.9-2) Administered Medications Acetaminophen (Acetaminophen 500 Mg Tab) 500 mg PO Q4H PRN PRN Reason: Pain Stop: 09/23/24 19:16 Last Admin: 08/24/24 19:50 Dose: 500 mg Documented By: BIGG Heparin Sodium/Dextrose (Heparin Sodium/Dextrose) 25,000 units in 500 mls @ 28 mls/hr IV .[id number] [facility]; Protocol Stop: 09/23/24 16:59 Last Admin: 08/24/24 17:12 Dose: 1,400 units/hr, 28 mls/hr Documented By: BIGG Co-signed By: DARIUSK Discontinued Medications Albuterol (Albuterol 0.5% Neb Soln 2.5 Mg/0.5 Ml Vial) 2.5 mg NEB NOW STA; Protocol Stop: 08/24/24 15:52 Last Admin: 08/24/24 16:01 Dose: 2.5 mg Documented By: BIGG Heparin Sodium/Dextrose (Heparin Iv Adult Wt-Based Standard W/ Initial Bolus Protocol) 1 each IV NOW STA; Protocol Stop: 08/24/24 16:28 Last Admin: 08/24/24 17:05 Dose: Not Given Documented By: BIGG Heparin Sodium/Dextrose (Heparin Iv Adult Wt-Based Standard *No* Initial Bolus Protocol) 1 each IV ONE STA; Protocol Stop: 08/24/24 16:32 Last Admin: 08/24/24 17:06 Dose: Not Given Documented By: BIGG Ioversol (Optiray 320 125ml) 101 ml IV ONCE ONE Stop: 08/24/24 15:45 Last Admin: 08/24/24 15:45 Dose: 101 ml Documented By: CHAPARRO Imaging Data Radiologist's Impression: Chest X-Ray 08/24/24 13:35 XR chest 1V portable HISTORY: 83 years-old Male Chest pain, nonspecific COMPARISON: 07/17/2024 TECHNIQUE: AP view of the chest FINDINGS: Cardiac silhouette is normal. Lungs are clear. No pneumothorax or pleural effusion. Bilateral shoulder arthroplasties. Spondylitic spurring of the spine. IMPRESSION: No acute process. ACT 112: Negative or not required by law. The above report was generated using voice recognition software. It may contain grammatical, syntax or spelling errors. Electronically signed by: Kit Crow M.D. 08/24/2024 2:51 PM Chest CTA 08/24/24 13:52 CT ANGIOGRAM OF THE CHEST CLINICAL HISTORY: Dyspnea COMPARISON STUDY: Chest x-ray dated 08/24/2024. Chest CT dated 01/26/2023. TECHNIQUE: Following the IV administration of 101 cc of Optiray 320, CT angiogram of the chest was performed from the upper abdomen to the thoracic inlet utilizing the pulmonary embolus protocol. Images are reviewed in the axial, sagittal, and coronal planes. 3-D MIPS images are created and assessed. IV contrast was administered without complication. A dose lowering technique was utilized adhering to the principles of ALARA. There is streak artifact from bilateral shoulder arthroplasties. CT DOSE: 839.54 mGy.cm FINDINGS: Thyroid: Normal in size and heterogeneous in attenuation. Thoracic aorta: There is atherosclerotic calcification of the thoracic aorta, which is normal in caliber and demonstrates bovine variant arch anatomy. No dissection is seen. Pulmonary vasculature: The pulmonary trunk is normal in caliber. There are segmental and subsegmental pulmonary emboli within branches of the right upper lobe pulmonary artery. There are also segmental and subsegmental pulmonary emboli within branches of the left upper lobe pulmonary artery. The central pulmonary vessels are clear. Heart: The heart is mildly enlarged and without pericardial effusion. The coronary arteries are densely calcified. Lungs and pleural spaces: Evaluation of the lung parenchyma is modestly degraded by motion artifact. Scarring/atelectasis is noted at both lung bases, right greater than left. A 4 mm right upper lobe pulmonary nodule on image #144 is unchanged. There are scattered calcified granulomas. Mediastinum: There is no mediastinal lymphadenopathy. Gemma: An enlarged right hilar node on image #114 measures 3.0 x 2.0 cm. No left hilar adenopathy is seen. Axillae: There is no axillary lymphadenopathy. Upper abdomen: There is a small hiatal hernia. Partially visualized upper abdominal viscera is otherwise within normal limits. Skeletal structures: The skeletal structures are osteopenic. Mild chronic compression deformities are noted in the upper to mid thoracic region. No lytic or blastic bony lesions are seen. Bilateral shoulder arthroplasties are in place. IMPRESSION: 1. Segmental and subsegmental pulmonary emboli are seen within branches of the right and left upper lobe pulmonary arteries. 2. Cardiomegaly noting advanced coronary artery atherosclerosis. 3. No airspace consolidation or pleural effusion is identified. 4. There is a pathologically enlarged right hilar lymph node. This is indeterminate, and may have been present previously. This was not well assessed on the 01/26/2023 examination due to lack of IV contrast. A six-month follow-up contrast-enhanced chest CT is recommended for reassessment. 5. Additional findings as above. ACT 112: Negative or not required by law. Electronically signed by: Phill Oakley M.D. 08/24/2024 4:14 PM Knee X-Ray 08/24/24 17:43 TWO VIEWS RIGHT KNEE CLINICAL HISTORY: Erythema and swelling. Recent knee arthroplasty. FINDINGS: AP and crosstable lateral portable views of the right knee are compared to study dated 08/18/2024. A right knee arthroplasty is in near anatomic alignment. There has been undersurface remodeling of the patella. No acute fracture is seen. There is a joint effusion, with soft tissue edema around the knee. Soft tissue edema has increased from the 08/18/2024 examination. Skin clips are in place. There are foci of subcutaneous gas which are likely related to recent surgery. IMPRESSION: 1. No acute bony abnormality is identified and a right knee arthroplasty is in near anatomic alignment. 2. There is increasing prepatellar soft tissue edema as compared to previous. Correlate clinically. ACT 112: Negative or not required by law. Electronically signed by: Phill Oakley M.D. 08/24/2024 7:11 PM Discharge Plan Visit Data Chief Complaint: Shortness of Breath/Dyspnea Stated Complaint: SOB/TROUBLE BREATHING, FEELS FAINT ED Provider: Kendall Stringer Discharge Problem: Pulmonary embolism Forms Stand Alone Forms: My [facility] [employer] Prescriptions Prescriptions: No Action nitroglycerin [Nitrostat] 0.4 mg tablet, sublingual 0.4 mg sublingual PRN PRN (Reason: chest pain) Qty: 25 5RF Eliquis 2.5 mg tablet 2.5 mg PO BID Qty: 180 3RF Prolia 60 mg/mL syringe 60 mg subcut Q6MO 365 Days Qty: 1 1RF Patient Comments: "I think this is once a year not every 6 months - last injection was 11/2023" albuterol sulfate 90 mcg/actuation HFA aerosol inhaler 2 puff INHALATION Q6H PRN (Reason: Shortness Of Breath) Qty: 8.5 4RF Rx Instructions: Per [place] Pharmacist, script is . Filled january 09, 2022 dupilumab [Dupixent Pen] See Rx Instructions subcut .COMPLEX Rx Instructions: 1 inj subcutaneously Q 2WK; clonidine HCl 0.1 mg tablet 0.1 mg PO TID PRN (Reason: PRN SBP>180) Qty: 90 2RF Spiriva Respimat 2.5 mcg/actuation mist 2 inh inhalation QAM duloxetine 60 mg capsule,delayed release(DR/EC) 60 mg PO QAM Patient Comments: Rx by psych levocetirizine 5 mg tablet 2.5 mg PO QAM thiamine HCl (vitamin B1) 100 mg Tablet 100 mg PO QAM allopurinol 100 mg Tablet 200 mg PO QPM Rx Instructions: 2 tabs at bedtime to prevent gout pravastatin 10 mg Tablet 10 mg PO QAM Qty: 30 2RF olopatadine 0.1 % drops 1 drp ophthalmic (eye) DAILY PRN (Reason: Other) omega-3 fatty acids 1,000 mg Capsule 1,000 mg PO QAM Rx Instructions: No order on file from [place] garlic 500 mg Capsule 500 mg PO QAM Rx Instructions: [place] Pharmacist unable to verify cyanocobalamin (vitamin B-12) 100 mcg Tablet 100 mcg PO QAM folic acid 1 mg Tablet 1 mg PO Q2D fluticasone propionate [Allergy Relief (fluticasone)] 50 mcg/actuation spray,suspension 1 spray intranasal BID PRN (Reason: Allergy Symptoms) Rx Instructions: administer into each nostril once daily trazodone 50 mg tablet 75 mg PO HS losartan 50 mg tablet 50 mg PO QAM metoprolol succinate 50 mg tablet extended release 24 hr 75 mg PO QAM prednisone 20 mg tablet 20 mg PO .COMPLEX PRN (Reason: Lung Infection) Patient Comments: "Only if I get an infection in my lungs" Rx Instructions: 20 mg PO; 3 tablets PO x 3 days; 2 tablets PO x 3 days; 1 tablets PO x 3 days; 1/2 tablet PO x 4 days tamsulosin [Flomax] 0.4 mg capsule 0.4 mg PO QAM levothyroxine 50 mcg tablet 50 mcg PO QAM omeprazole 20 mg capsule,delayed release(DR/EC) 20 mg PO QAM montelukast [Singulair] 10 mg tablet 10 mg PO QAM finasteride 5 mg tablet 5 mg PO QAM Patient Comments: QPM ezetimibe 10 mg tablet 10 mg PO QAM hydrochlorothiazide 12.5 mg tablet 12.5 mg PO UD Rx Instructions: 12.5 mg po qam. per pt he does half tab fluticasone propion-salmeterol [Wixela Inhub] 500-50 mcg/dose Blister With Device 1 inh INHALATION QAM oxycodone 5 mg Tablet 5 mg PO Q4H PRN (Reason: pain) Qty: 30 0RF Rx Instructions: 5 mg q4h po prn. Per pt he says he doesn't take, prescription sent on 08/19 to pharmacy clopidogrel [Plavix] 75 mg tablet 75 mg PO QAM cefadroxil 500 mg capsule 500 mg PO UD Rx Instructions: 500 mg po bid. Says he doesnt take but was prescribed 08/19 for 10 days Referrals Referrals: Israel Patel MD [Primary Care Provider] -
--- NOTE | 2024-08-24 16:15 | CT Scan Report ---
CT ANGIOGRAM OF THE CHEST CLINICAL HISTORY: Dyspnea COMPARISON STUDY: Chest x-ray dated 08/24/2024. Chest CT dated 01/26/2023. TECHNIQUE: Following the IV administration of 101 cc of Optiray 320, CT angiogram of the chest was pe rformed from the upper abdomen to the thoracic inlet utilizing the pulmonary embolus protocol. Images are reviewed in the axial, sagittal, and coronal planes. 3-D MIPS images are created and assessed. I V contrast was administered without complication. A dose lowering technique was utilized adhering to the principles of ALARA. There is streak artifact from bilateral shoulder arthroplasties. CT DOSE: 839.54 mGy.cm FINDINGS: Thyroid: Normal in size and heterogeneous in attenuation. Thoracic aorta: There is atherosclerotic calcification of the thoracic aorta, which is normal in [place] and demonstrates bovine variant arch anatomy. No dissection is seen. Pulmonary vasculature: The pulmonary trunk is normal in caliber. There are segmental and subsegmental pulmonary emboli within branches of the right upper lobe pulmonary artery. There are also segmental and subsegmental pulmonary emboli within branches of the left upper lobe pulmonary artery. The centra l pulmonary vessels are clear. Heart: The heart is mildly enlarged and without pericardial effusion. The coronary arteries are dense ly calcified. Lungs and pleural spaces: Evaluation of the lung parenchyma is modestly degraded by motion artifact. Scarring/atelectasis is noted at both lung bases, right greater than left. A 4 mm right upper lobe pu lmonary nodule on image #144 is unchanged. There are scattered calcified granulomas. Mediastinum: There is no mediastinal lymphadenopathy. Gemma: An enlarged right hilar node on image #114 measures 3.0 x 2.0 cm. No left hilar adenopathy is s een. Axillae: There is no axillary lymphadenopathy. Upper abdomen: There is a small hiatal hernia. Partially visualized upper abdominal viscera is otherw ise within normal limits. Skeletal structures: The skeletal structures are osteopenic. Mild chronic compression deformities are noted in the upper to mid thoracic region. No lytic or blastic bony lesions are seen. Bilateral shou lder arthroplasties are in place. IMPRESSION: 1. Segmental and subsegmental pulmonary emboli are seen within branches of the right and left upper l obe pulmonary arteries. 2. Cardiomegaly noting advanced coronary artery atherosclerosis. 3. No airspace consolidation or pleural effusion is identified. 4. There is a pathologically enlarged right hilar lymph node. This is indeterminate, and may have bee n present previously. This was not well assessed on the 01/26/2023 examination due to lack of IV contr ast. A six-month follow-up contrast-enhanced chest CT is recommended for reassessment. 5. Additional findings as above. ACT 112: Negative or not required by law. Electronically signed by: Phill Oakley M.D. 08/24/2024 4:14 PM
--- NOTE | 2024-08-24 16:37 | History & Physical Report ---
Date of Service August 24, 2024 Assessment & Plan (1) Pulmonary embolism, bilateral: Plan: Patient recently stopped taking his Eliquis prior to right knee arthroplasty on 08/18 While he restarted his Eliquis on 08/21, he notes that he has had worsening SOB since that time Chest CTA on arrival revealed segmental and subsegmental PEs within the right and left upper lobes Also noted a pathologically enlarged right hilar lymph node which will likely require follow-up Heparin IV without bolus started in the ED Echocardiogram ordered, pending Continuous pulse oximetry A.m. CBC, BMP, PTT (2) Status post right knee replacement: Plan: RTK arthroplasty on 08/18 Patient initially reported he has was not taking cefadroxil despite being prescribed this on 08/19; upon re-assessment, he says he might be taking it, but is not sure Continue cefadroxil or formulary equivalent While patient is afebrile on arrival without leukocytosis, there is some concern for septic knee given erythema and swelling around the surgical site/hardware Repeat knee x-ray ordered ESR/CRP ordered, pending Reached out to Ortho regarding potential arthrocentesis Acetaminophen as needed for pain Will hold oxycodone temporarily so as not to suppress respiratory drive (3) COPD (chronic obstructive pulmonary disease): Plan: Continue home inhaler Patient reports he is not currently on steroid taper or antibiotics Promote good pulmonary hygiene Flutter valve, incentive spirometry Supplemental oxygen as needed to maintain SpO2 89 to 92% DuoNeb 3 mL Q6R as needed for wheezing (4) CKD (chronic kidney disease) stage 4, GFR 15-29 ml/min: Plan: BUN 32, creatinine 2.01 (around baseline), and EGFR 28.1 on arrival Avoid nephrotoxic agents where possible Will hold HCTZ and losartan for now Trend BMP (5) Anemia: Plan: Mild; Hgb 11.0 In the setting of recent RTKA No signs of active bleeding on clinical exam Trend H&H Plan Disposition: Admit to PCU telemetry DNR/DNI Regular diet VTE PPx: Heparin IV History of Present Illness Chief Complaint: SOB/dyspnea Primary Care Provider: Israel Patel MD Steve is an 83-year-old male with PMH of asthma-COPD overlap syndrome, HLD, HTN, alcohol dependence, PTSD, sleep apnea, BPH, hypothyroidism, CKD, tobacco use, and CAD s/p FERNANDO. He presented on 08/24 for worsening SOB over the past several days. Patient had a right total knee arthroplasty performed on 08/18. He stopped his Eliquis 3 days prior to knee replacement, then restarted it on Tuesday 08/21. His shortness of breath started on Tuesday 08/21, and has progressively worsened. He endorses both SOB with exertion and at rest. Worse when he lies flat on his back. No prior history of DVT/PE. Patient is unsure why he takes Eliquis; unsure if he has a history of atrial fibrillation; reports that he only takes it to thin his blood. Patient lives alone. Patient ambulates with a walker at baseline. He has been trying to ambulate between his living room in the kitchen, but reports that he nearly passes out due to lightheadedness when he does this. For instance, he had to lean over his walker and catch his breath this morning when walking to his kitchen, and had to sit down in his stool because things are starting to get "black". A few steps with his walker will "knock him out". Patient reports he has eaten very little over the past 4 days as he has trouble getting to his kitchen. He denies any syncope or falls. Patient took all his regular morning medications today; no recent change in medications. He reports he manages his own medicine at home. No sick contacts. No supplemental oxygen at baseline. No CPAP at night. He denies smoking or recent alcohol use. He is a former tobacco chewer, but has not used in several weeks. Patient reports that pain in his right knee is bearable, and is currently at a 4/10. It is worse with movements, and he has been taking Tylenol at home for the pain; he was initially taking oxycodone, but stopped after a couple days. He has not noticed any drainage from the surgical site. It was last dressed today. He reports he has not taken off his compression stockings since surgery, but notes that his right calf has been swelling. Patient is hypertensive at 181/90 at time of admission; SpO2 97% on RA; vitals otherwise stable. ED course: Heparin IV without bolus Albuterol 2.5 mg neb ROS: Patient endorses chills, lightheadedness, SOB both at rest and with exertion, orthopnea, productive cough (white/yellow sputum production), difficulty with urinating, dysuria (since having knee done), and swelling/erythema in the right lower leg and knee. Patient denies fever, night-sweats, dizziness (like the room is spinning), falls, fainting, chest pain, chest palpitations, pleuritic CP, hemoptysis, abdominal pain, N/V/D, blood or clots in the urination, burning with urination, blood in the stool, saddle anesthesia, new lower back pain, drainage from the right knee surgical site, or numbness/tingling in the arms or legs. Update: Provided update to family at bedside regarding labs/imaging and admission. Re-confirmed DNR/DNI status. Allergies Allergy/AdvReac Type Severity Reaction Status Date / Time aspirin Allergy Severe hives and Verified 08/18/24 10:34 mouth/throat swelling, hyperventilation ketorolac AdvReac Severe Avoids Verified 08/18/24 09:22 secondary to aspirin component levofloxacin AdvReac Severe Torn Verified 08/18/24 09:22 tendons in Legs oxycodone AdvReac Intermediate Mental Verified 08/18/24 09:22 Status Change/Hallucinations Prqrwxi-RCH-XxT Reductase AdvReac Intermediate severe Verified 08/18/24 09:22 Inhibitor muscle [Ravhgqm-Bdw-Mkt Reductase cramps Inhibitor] Home Medications Medication Instructions Recorded Confirmed Type allopurinol 100 mg tablet 200 mg PO QPM 08/10/18 08/24/24 History thiamine HCl (vitamin B1) 100 mg 100 mg PO QAM 08/10/18 08/24/24 History tablet pravastatin 10 mg tablet 10 mg PO QAM #30 tabs 12/21/21 08/24/24 Rx albuterol sulfate 90 mcg/actuation 2 puff inhalation Q6H PRN 07/29/22 08/24/24 Rx aerosol inhaler Shortness Of Breath #8.5 grams garlic 500 mg capsule 500 mg PO QAM 10/14/22 08/24/24 History omega-3 fatty acids 1,000 mg 1,000 mg PO QAM 10/14/22 08/24/24 History capsule cyanocobalamin (vitamin B-12) 100 100 mcg PO QAM 04/22/23 08/24/24 History mcg tablet fluticasone propionate 50 1 spray intranasal BID PRN Allergy 04/22/23 08/24/24 History mcg/actuation nasal Symptoms spray,suspension (Allergy Relief (fluticasone)) folic acid 1 mg tablet 1 mg PO Q2D 04/22/23 08/24/24 History clonidine HCl 0.1 mg tablet 0.1 mg PO TID PRN PRN SBP>180 #90 06/30/23 08/24/24 Rx tabs nitroglycerin 0.4 mg sublingual 0.4 mg sublingual PRN PRN chest 07/08/23 08/24/24 Rx tablet (Nitrostat) pain #25 tabs tiotropium bromide 2.5 2 inh inhalation QAM 09/21/23 08/24/24 History mcg/actuation mist for inhalation (Spiriva Respimat) duloxetine 60 mg capsule,delayed 60 mg PO QAM 10/21/23 08/24/24 History release levocetirizine 5 mg tablet 2.5 mg PO QAM allergy symptoms 10/21/23 08/24/24 History olopatadine 0.1 % eye drops 1 drp ophthalmic (eye) DAILY PRN 10/21/23 08/24/24 History Other trazodone 50 mg tablet 75 mg PO HS sleep 10/21/23 08/24/24 History dupilumab [Dupixent Pen] See Rx Instructions subcut .COMPLEX 03/29/24 08/24/24 History apixaban 2.5 mg tablet (Eliquis) 2.5 mg PO BID #180 tabs 05/24/24 08/24/24 Rx denosumab 60 mg/mL subcutaneous 60 mg subcut Q6MO 365 days #1 mL 05/29/24 08/24/24 Rx syringe (Prolia) ezetimibe 10 mg tablet 10 mg PO QAM 07/05/24 08/24/24 History finasteride 5 mg tablet 5 mg PO QAM 07/05/24 08/24/24 History fluticasone 500 mcg-salmeterol 50 1 inh inhalation QAM 07/05/24 08/24/24 History mcg/dose blistr powdr for inhalation (Wixela Inhub) hydrochlorothiazide 12.5 mg tablet 12.5 mg PO UD 07/05/24 08/24/24 History levothyroxine 50 mcg tablet 50 mcg PO QAM 07/05/24 08/24/24 History losartan 50 mg tablet 50 mg PO QAM 07/05/24 08/24/24 History metoprolol succinate 50 mg 75 mg PO QAM 07/05/24 08/24/24 History tablet,extended release 24 hr montelukast 10 mg tablet 10 mg PO QAM 07/05/24 08/24/24 History (Singulair) omeprazole 20 mg capsule,delayed 20 mg PO QAM 07/05/24 08/24/24 History release prednisone 20 mg tablet 20 mg PO .COMPLEX PRN Lung 07/05/24 08/24/24 History Infection tamsulosin 0.4 mg capsule (Flomax) 0.4 mg PO QAM 07/05/24 08/24/24 History oxycodone 5 mg tablet 5 mg PO Q4H PRN pain #30 tabs 08/19/24 08/24/24 Rx cefadroxil 500 mg capsule 500 mg PO UD 08/24/24 08/24/24 History clopidogrel 75 mg tablet (Plavix) 75 mg PO QAM 08/24/24 08/24/24 History Past Med/Surg History Problem List (Updated 08/24/24 @ 16:38 by Nikko Roach PA-C) Pulmonary embolism, bilateral Status post right knee replacement (~08/2024) Atypical chest pain Bronchitis Intercostal muscle strain Osteoarthritis of right knee History of left knee surgery Neck Pain Osteopenia Chondrocalcinosis of right knee Chest pain (Acute) Gait disturbance Hyperparathyroidism, secondary Hypothyroidism (acquired) Back pain Osteoarthritis of knees, bilateral Partial tear of left Achilles tendon Partial tear of right Achilles tendon History of orthostatic hypotension Labile hypertension Chest pain (Acute) Balance problems Hyperparathyroidism, secondary Acute on chronic renal insufficiency 03/01/23 Osteoporosis Osteopenia Achilles rupture, left 11/04/22 Achilles rupture, right 11/04/22 Orthostatic hypotension BATES (dyspnea on exertion) Presence of drug coated stent in left circumflex coronary artery (12/2021) Orthostatic lightheadedness Chronic renal insufficiency (Acute) Dizziness (Acute) Lab test negative for COVID-19 virus (Acute) Hx of coronary artery disease (Acute) Near syncope (Acute) Gout flare Bilateral Achilles tendonosis Sinusitis 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 s/p single FERNANDO mid circ 12/20/2021 Gout (Acute) S/P drug eluting coronary stent placement Admitted to intensive care unit Mitral regurgitation CKD (chronic kidney disease) stage 4, GFR 15-29 ml/min (Acute) Tobacco use (Acute) Essential hypertension Positive colorectal cancer screening using Cologuard test Positive colorectal cancer screening using Cologuard test Compression fracture of T3 vertebra Elevated hemoglobin A1c Encounter for pre-operative examination Hypothyroidism Grief reaction Inflamed seborrheic keratosis Skin abnormality Diverticulum of bladder BPH w urinary obs/LUTS High prostate specific antigen (PSA) Ascending aortic aneurysm Cervical facet joint syndrome (Chronic) COPD (chronic obstructive pulmonary disease) (Chronic) Bilateral sensorineural hearing loss (Acute) Vitamin B12 deficiency (Acute) Sleep apnea (Acute) NO DEVICE (COULD NOT TOLERATE) Proteinuria (Acute) Lumbar radiculopathy (Acute) Chronic back pain (Acute) Anemia (Acute) Alcohol dependence (Acute) QUIT 2018 Lower urinary tract symptoms (LUTS) History of cervical spinal surgery (Chronic) C3-5 ACDF Hyperlipidemia Asthma (Chronic) PTSD (post-traumatic stress disorder) (Chronic) Medical History (Updated 08/24/24 @ 16:38 by Nikko Roach PA-C) History of posttraumatic stress disorder (PTSD) Difficult intubation s/p cervical spine surgery Hx of hepatitis "[place] war, I was in the hospital for 5 days in the field from drinking untreated water" Carotid artery stenosis S/P RIGHT CEA (08/2018) Diverticular disease "found on colonoscopy" HTN (hypertension) controlled, stable per pt Atrial fibrillation "Slight" just completed Holter Monitor 05/2024 Sleep apnea can't tolerate device Hx of chest pain no current issues at this time Osteoporosis Pulmonary nodules Follows [facility] Dr Aurelio Camacho Mitral regurgitation Hypothyroidism BATES (dyspnea on exertion) "Not just moving around - its when I am doing extensive work like gardening" CAD (coronary artery disease) Dr Carrion Balance problems "Due to both achilles tendon tears" denies repair. doesn't use walker/cane/wheelchair COPD (chronic obstructive pulmonary disease) exacerbation 3 weeks ago-states he completed a course of doxycycline and prednisone CKD (chronic kidney disease) stage 3, GFR 30-59 ml/min Pt denies Follows Dr. Thomas Ascending aortic aneurysm "PCP/Dr. Patel monitors" Arthritis BPH (benign prostatic hyperplasia) History of colon cancer "removed 2 cancerous colon polyps - colonoscopys have came back clean ever since" Hx of gout no recent flares Anxiety and depression Temporomandibular joint dysfunction syndrome pt denies Seasonal allergies Scoliosis Deviated nasal septum Benign essential tremor Hands Pt denies Osteoarthritis GERD (gastroesophageal reflux disease) Controlled, stable per pt Hearing deficit Bilateral Hearing Aids Post traumatic stress disorder Degenerative disc disease Asthma stable per pt; last rescue albuterol inhaler use last week per patient, notes improvement after starting dupixent injections Surgical History (Updated 08/18/24 @ 13:43 by Alejandro Phillips DO) History of heart artery stent x2 2021 Hx of cervical spine surgery C3-5 ACDF 2017 History of cataract surgery Right History of difficult intubation C3-5 ACDF= 08/23/17= Grade view 2, Glidescope#4, ETT 8.0 (Head/neck neutral for intubation) at [facility] History of right-sided carotid endarterectomy History of lumbar fusion L4-L5 History of tooth extraction History of tonsillectomy History of total shoulder replacement Bilateral History of total knee replacement Left History of esophagogastroduodenoscopy (EGD) History of colonoscopy with polypectomy History of cardiac cath - No Stents 2021 - With Stents x2 Family History Sister Breast cancer Cancer Hypertension Brother Myocardial infarction COPD (chronic obstructive pulmonary disease) Hypertension Father Hypertension Mother Hypertension Other No family history of adverse response to anesthesia Denies family history of Ovarian cancer Prostate cancer Diabetes Colorectal cancer Social History Smoking Status: Unknown if ever smoked Tobacco Type: Cigarettes and Smokeless Tobacco (Dip or Chew) Age Started Using Tobacco: 14; Age Quit Using Tobacco: 36; packs per day: 2; Second Hand Exposure: No; Do You Dip or Chew Tobacco: Yes (Advised); Hx Alcohol Use: No Hx Substance Use: No Preferred Language: Moldovan Communication Ability: Effective Visual Impairment: No Limitations Hearing Ability: Use of Hearing Aid Morphologist Required: No Beliefs That Will Affect Care: None marital status: / Current Living Situation: Alone current occupational status: retired 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, 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 How many Children do You have: 6 Feels Safe at Home: Yes Childhood Exposure to Second-Hand Smoke: Yes Diet: regular caffeine: Yes Dental Care, Regularly: No Physical Activity Frequency: Does not Exercise Seatbelt Use: always Sunscreen Use: Yes Assistive Devices: Cane, Crutches, Walker and Other Review of Systems 2 Review of Systems: See HPI above Physical Exam 2 Physical Exam: General: Mild respiratory distress; pleasant affect; non-toxic appearing; well- nourished; cooperative; SpO2 97% on RA HEENT: normocephalic, atraumatic; no scleral icterus; PERRLA w/ EOMs intact; vision and hearing grossly intact Neck: supple; no lymphadenopathy; trachea midline Skin: warm, dry without signs of tenting; no cyanosis; no rashes, bruising, lesions, or erythema noted CV: chest wall NTP; RRR, tachycardic around 102 bpm; S1/S2 normal; no murmurs/rubs/gallops; bounding pulses intact and symmetric at radial, DP, and PT Lungs: Mild respiratory distress; conversational dyspnea; symmetrical chest wall expansion; significant bibasilar expiratory wheeze and crackles; rhonchi in the right lung > left lung ABD: Soft, NTP; BS present; no rebound/guarding; no distention MSK: no tics or fasciculations; right calf is erythematous and edematous when compared to the left calf Right knee: Surgical site is erythematous and swollen (see photo below); warm to touch; no drainage; right knee is mildly TTP; patient demonstrates active ROM of the right knee and is able to flex to approximately 60 degrees before stopping Neuro: A&Ox3; normal mood and affect; fluent speech; no focal deficits; patient reports that sensation is diminished in the right lower extremity when compared to the left assessed via light touch Results & Data Results & Data Vital Signs (Past 12 Hours) Vital Signs Temp Pulse Resp BP Pulse Ox O2 Del Method O2 Flow Rate 08/24/24 14:20 97 Room Air 0 08/24/24 14:05 97 Room Air 08/24/24 14:00 96 H 21 181/90 H 99 Room Air 08/24/24 13:49 104 H 08/24/24 13:35 36.8 C 108 H 20 113/79 99 Room Air Laboratory Results Abnormal lab results 08/24/24 Range/Units 14:00 RBC 3.62 L (4.70-6.10) M/uL Hgb 11.0 L (14.0-18.0) g/dl Hct 33.0 L (42.0-52.0) % RDW Std Deviation 47.2 H (36.4-46.3) fL Lymph # (Auto) 1.03 L (1.20-3.40) K/uL Gillespie # (Auto) 0.70 H (0.11-0.59) K/uL Sodium 134 L (136-145) mmol/L BUN 32 H (6-23) mg/dl Creatinine 2.01 H (0.6-1.4) mg/dl Glucose 109 H (70-99(Fasting)) mg/dl ALT 3 L (7-52) U/L Albumin 3.3 L (3.4-5.0) gm/dl Diagnostic Findings Chest X-Ray 08/24/24 13:35 XR chest 1V portable HISTORY: 83 years-old Male Chest pain, nonspecific COMPARISON: 07/17/2024 TECHNIQUE: AP view of the chest FINDINGS: Cardiac silhouette is normal. Lungs are clear. No pneumothorax or pleural effusion. Bilateral shoulder arthroplasties. Spondylitic spurring of the spine. IMPRESSION: No acute process. ACT 112: Negative or not required by law. The above report was generated using voice recognition software. It may contain grammatical, syntax or spelling errors. Electronically signed by: Kit Crow M.D. 08/24/2024 2:51 PM Chest CTA 08/24/24 13:52 CT ANGIOGRAM OF THE CHEST CLINICAL HISTORY: Dyspnea COMPARISON STUDY: Chest x-ray dated 08/24/2024. Chest CT dated 01/26/2023. TECHNIQUE: Following the IV administration of 101 cc of Optiray 320, CT angiogram of the chest was performed from the upper abdomen to the thoracic inlet utilizing the pulmonary embolus protocol. Images are reviewed in the axial, sagittal, and coronal planes. 3-D MIPS images are created and assessed. IV contrast was administered without complication. A dose lowering technique was utilized adhering to the principles of ALARA. There is streak artifact from bilateral shoulder arthroplasties. CT DOSE: 839.54 mGy.cm FINDINGS: Thyroid: Normal in size and heterogeneous in attenuation. Thoracic aorta: There is atherosclerotic calcification of the thoracic aorta, which is normal in caliber and demonstrates bovine variant arch anatomy. No dissection is seen. Pulmonary vasculature: The pulmonary trunk is normal in caliber. There are segmental and subsegmental pulmonary emboli within branches of the right upper lobe pulmonary artery. There are also segmental and subsegmental pulmonary emboli within branches of the left upper lobe pulmonary artery. The central pulmonary vessels are clear. Heart: The heart is mildly enlarged and without pericardial effusion. The coronary arteries are densely calcified. Lungs and pleural spaces: Evaluation of the lung parenchyma is modestly degraded by motion artifact. Scarring/atelectasis is noted at both lung bases, right greater than left. A 4 mm right upper lobe pulmonary nodule on image #144 is unchanged. There are scattered calcified granulomas. Mediastinum: There is no mediastinal lymphadenopathy. Gemma: An enlarged right hilar node on image #114 measures 3.0 x 2.0 cm. No left hilar adenopathy is seen. Axillae: There is no axillary lymphadenopathy. Upper abdomen: There is a small hiatal hernia. Partially visualized upper abdominal viscera is otherwise within normal limits. Skeletal structures: The skeletal structures are osteopenic. Mild chronic compression deformities are noted in the upper to mid thoracic region. No lytic or blastic bony lesions are seen. Bilateral shoulder arthroplasties are in place. IMPRESSION: 1. Segmental and subsegmental pulmonary emboli are seen within branches of the right and left upper lobe pulmonary arteries. 2. Cardiomegaly noting advanced coronary artery atherosclerosis. 3. No airspace consolidation or pleural effusion is identified. 4. There is a pathologically enlarged right hilar lymph node. This is indeterminate, and may have been present previously. This was not well assessed on the 01/26/2023 examination due to lack of IV contrast. A six-month follow-up contrast-enhanced chest CT is recommended for reassessment. 5. Additional findings as above. ACT 112: Negative or not required by law. Electronically signed by: Phill Oakley M.D. 08/24/2024 4:14 PM ECG Additional Comments: ECG revealed sinus rhythm with occasional PVCs at 95 bpm; QTc 424 Code Status & VTE Plan Code Status DNR/DNI VTE Prophylaxis Plan VTE Prophylaxis will be ordered: Yes Supervising Physician Co-Signing Physician Notes Patient seen and examined, chart reviewed, case discussed with Nikko Roach PA-C and I agree with the assessment and plan as above except as otherwise noted Labs and images reviewed 80-year-old male with past medical history of R TKA with Dr. Phillips, eliquis held 3 days prior and resumed 08/21. Had started to develop dyspnea on 08/21. Has been taking eliquis BID since Wednesday. Takes eliquis for history of paroxysmal A-fib. Segmental and subsegmental PEs are noted. Suspect that this is from provoking surgery in a time period where his anticoagulation was held rather than DOAC failure as his symptoms began the same day he restarted Eliquis. Patient was started on heparin in the ER, will continue this for now and monitor and complete workup as above and transition back to Eliquis 08/25. Would also consider Xarelto. Additionally since patient has a DVT/PE would no longer use dose reduced Eliquis.Some concern for septic knee and patient has not been taking his perioperative antibiotics. Orthopedics is consulted. CRP is trended. Ortho will evaluate in the morning and will continue antibiotics as noted above in the meantime. At bedside does have right lower extremity calf asymmetry and leg swelling. Patient is normotensive and with normal oxygen saturation on room air, does feel slightly short of breath with some wheezing. Does have history of asthma and took his morning inhalers today. DuoNebs ordered. No respiratory distress. Agree with above PG Care Time/CCT Total # of Minutes Spent Total Time Spent with Patient: Total time spent is greater than 50% in coordination of care (as documented) at patient's floor/unit and/or counseling patient: Coding [place] [address] INT INP/OBS CARE 3/75MIN Patient Type Established Medical Decision Making High Complexity Diagnoses Pulmonary embolism, bilateral I26.99 Status post right knee replacement Z96.651 Chronic obstructive pulmonary disease, unspecified COPD type J44.9 COPD type: unspecified COPD CKD (chronic kidney disease) stage 4, GFR 15-29 ml/min N18.4 Anemia D64.9 (3) COPD (chronic obstructive pulmonary disease) COPD type: unspecified COPD Qualified Code(s): J44.9 - Chronic obstructive pulmonary disease, unspecified
[2024-08-24] MEDS ORDERED: HEPARIN SOD (PORCINE) 1000 UNIT/ML IV ONE (16:42)
[2024-08-24] MEDS ORDERED: HEPARIN SODIUM/DEXTROSE 25,000 UNITS/500 ML BAG IV SCH (16:45)
[2024-08-24] MEDS: Heparin IV Adult Wt-Based Standard w/ INITIAL Bolus Protocol IV STA (17:05)
[2024-08-24] MEDS: Heparin IV Adult Wt-Based Standard *NO* INITIAL Bolus Protocol IV STA (17:06)
[2024-08-24] MEDS: HEPARIN SODIUM/DEXTROSE 25,000 UNITS/500 ML BAG IV SCH (17:12)
[2024-08-24 18:14] LABS: C Reactive Protein 18.23 mg/dl (0-0.5); Magnesium 1.8 mg/dl (1.7-2.4)
--- NOTE | 2024-08-24 19:12 | XRay Report ---
TWO VIEWS RIGHT KNEE CLINICAL HISTORY: Erythema and swelling. Recent knee arthroplasty. FINDINGS: AP and crosstable lateral portable views of the right knee are compared to study dated 08/01. A right knee arthroplasty is in near anatomic alignment. There has been undersurface remodeli ng of the patella. No acute fracture is seen. There is a joint effusion, with soft tissue edema aroun d the knee. Soft tissue edema has increased from the 08/18/2024 examination. Skin clips are in place. There are foci of subcutaneous gas which are likely related to recent surgery. IMPRESSION: 1. No acute bony abnormality is identified and a right knee arthroplasty is in near anatomic alignmen t. 2. There is increasing prepatellar soft tissue edema as compared to previous. Correlate clinically. ACT 112: Negative or not required by law. Electronically signed by: Phill Oakley M.D. 08/24/2024 7:11 PM
[2024-08-24] MEDS ORDERED: ALBUT/IPRATROP 3MG/0.5MG NEB 3 ML VIAL NEB PRN (19:16)
[2024-08-24] MEDS: ACETAMINOPHEN 500 MG TAB PO PRN (19:50)
[2024-08-24] MEDS ORDERED: ALBUTEROL HFA 8 GM INHALER INH PRN (21:05)
[2024-08-24] MEDS ORDERED: ALBUT/IPRATROP 3MG/0.5MG NEB 3 ML VIAL INH PRN (21:05)
[2024-08-24] MEDS ORDERED: cloNIDine HCL 0.1 MG TAB PO PRN (21:05)
[2024-08-24] MEDS ORDERED: ACETAMINOPHEN 325 MG TAB PO PRN (21:05)
[2024-08-24] MEDS ORDERED: ONDANSETRON INJ 2 MG/ML 2 ML VIAL IV PRN (21:05)
[2024-08-24] MEDS ORDERED: NON-FORMULARY MEDICATION (Cefadroxil 500 mg capsule) PO SCH (21:05)
[2024-08-24] MEDS ORDERED: FLUTICASONE PROPIONATE NA SPR 16 GM BTL PRN (21:05)
[2024-08-24] MEDS: traZODone HCL 50 MG TAB PO SCH (22:24)
[2024-08-24] MEDS: cephALEXin 500 MG CAP PO SCH (22:24)
[2024-08-24] MEDS: allopurinoL 100 MG TAB PO SCH (22:24)
[2024-08-24 23:43] LABS: ANTI-Xa, UFH(UnfractionatedHep 1.18 IU/ml (0.3-0.7)
[2024-08-25 01:56] LABS: ANTI-Xa, UFH(UnfractionatedHep 0.89 IU/ml (0.3-0.7)
[2024-08-25 03:39] LABS: Basophils # (auto) 0.01 K/uL (0.00-0.20); Basophils % (auto) 0.2 %; Eosinophils # (auto) 0.15 K/uL (0.00-0.50); Eosinophils % (auto) 3.1 %; Hematocrit (blood only) 28.6 % (42.0-52.0); Hemoglobin 9.4 g/dl (14.0-18.0); Immature Granulocytes # (auto) 0.02 K/uL (0.01-0.20); Immature Granulocytes % (auto) 0.4 %; Lymphocytes # (auto) 1.28 K/uL (1.20-3.40); Lymphocytes % (auto) 26.4 %; Mean Corpuscular Hgb Conc 32.9 g/dL (32.0-36.0); Mean Corpuscular Volume 91.4 fL (80.0-100.0); Monocytes # (auto) 0.64 K/uL (0.11-0.59); Monocytes % (auto) 13.2 %; Neutrophils # (auto) 2.75 K/uL (1.40-6.50); Neutrophils % (auto) 56.7 %; Platelet Count 237 K/uL (130-400); RDW Coefficient of Variation 14.2 % (11.5-14.5); RDW Standard Deviation 47.7 fL (36.4-46.3); Red Blood Count 3.13 M/uL (4.70-6.10); White Blood Count 4.85 K/ul (4.8-10.8)
[2024-08-25 03:56] LABS: Calcium 7.9 mg/dl (8.6-10.3); Creatinine Clr Calc Pharmacy 28.9 ml/min; Potassium 4.3 mmol/L (3.5-5.1)
[2024-08-25 04:12] LABS: ANTI-Xa, UFH(UnfractionatedHep 0.59 IU/ml (0.3-0.7); Partial Thromboplastin Ratio 1.3; Partial Thromboplastin Time 36 Seconds (21-31)
--- OUTSIDE RECORDS SUMMARY | 2024-08-25 04:29 | External Medical Summary | Summary of Care ---
Author Name Unknown Organization [facility] Address [address] [place] [address] Phone [phone] Care Team Providers Care Binding Nicker Name Role Phone Israel Patel MD Primary Care Provi theodore Reason for Visit * Reason Onset Date Comments Follow Up 07/20/2024 Encounter Details Date Type Department Care Team (Late st Contact Info) Description 07/20/2024 Telephone Radiology [address] [place] [phone] Services, Scheduling [address] [place] [address] Follow Up Allergies Active Allergy Reactions Criticality Noted Date Comments Rosuvastatin Muscle pain 06/15/2018 Ketorolac Tromethamine 11/23/2001 toradol Oxycodone 03/07/2003 oxycontin-hallucinations Salicylates 11/23/2001 Simvastatin Muscle pain 06/15/2018 documented as of this encounter (statuses as of 08/21/2024) Medications Medication Sig Dispensed Refills Start Date [...] Take 100 mg by mouth daily. Active [place]-3 Fatty Acids (FISH OIL) 1000 MG Capsule [...] as of this encounter (statuses as of 08/21/2024) Active Problems Problem Noted Date Diagnosed Date COPD exacerbation Allergic rhinitis BENIGN HYPERTENSION Esophageal reflux Anxiety state Major depressive disorder Overview: ICD-10 update of inactive term Hearing loss DISC DIS KCH-KCQ-GTTR DISC DIS HOY-[id number]-[id number] documented as of this encounter (statuses as of 08/21/2024) Social History Tobacco Use Types Packs/Day Years [...] encounter Miscellaneous Notes * Telephone Encounter - Татьяна Blair OSA - 07/20/2024 10:42 AM EDT Please triage MR card documented in this encounter Plan of Treatment Health Maintenance Due Date Last Done Comments Depression Monitoring 1952 Albumin/Creatinine Ratio 1958 Alpha-1 Antitrypsin 1958 O2 ASSESSMENT COMPLETED IN PAST YEAR FOR COPD 1958 DTap/Tdap Vaccines (1 - Tdap) 01/12/2001 01/11/2001 GFR 10/16/2022 10/16/2021, 07/0 04/2006, 12/10/2003, Additional history exists COVID-19 Vaccine ( season) 2024 Influenza Vaccine (FLU shot) (#1) 2024 08/08/2019, 09/05/2018, 08/03/2017, Additional history exists Zoster Vaccines Completed 06/05/2019, 12/02, 04/06/2012 Pneumococcal Vaccine: 65+ Years Completed 06/25/2020, 06/24/2017, 10/19/2014, Additional history exists HPV (Gardasil) Vaccine Aged Out No lo [...] filedocumented as of this encounter Care Teams Binding Nicker Relationship Specialty Start Date End Date Israel Patel MD [address] [facility] [place] [id number] PCP - General Internal Medicine 06/15/18 documented as of this encounter
[2024-08-25] MEDS: LEVOTHYROXINE SODIUM 50 MCG TABLET PO SCH (06:46)
[2024-08-25] MEDS: METOPROLOL SUCC 25MG EXT REL TAB PO SCH (08:03)
[2024-08-25] MEDS: PANTOprazole 40 MG TAB PO SCH (08:03)
[2024-08-25] MEDS: TAMSULOSIN HCL 0.4 MG CAP PO SCH (08:03)
[2024-08-25] MEDS: CETIRIZINE HCL 10 MG TABLET PO SCH (08:03)
[2024-08-25] MEDS: EZETIMIBE 10 MG TAB PO SCH (08:03)
[2024-08-25] MEDS: FINASTERIDE 5 MG TAB PO SCH (08:03)
[2024-08-25] MEDS: MONTELUKAST SODIUM 10 MG TABLET PO SCH (08:03)
[2024-08-25] MEDS: DULoxetine HCL 60 MG CAP PO SCH (08:03)
[2024-08-25] MEDS: PRAVASTATIN SOD 10 MG TAB PO SCH (08:03)
[2024-08-25] MEDS: CLOPIDOGREL BISULFATE 75 MG TAB PO SCH (08:03)
[2024-08-25] MEDS: UMECLIDINIUM BROMIDE 62.5MCG/BLISTER 7 PUFFS/INHALER INH SCH (08:04)
[2024-08-25] MEDS: FLUTICASONE/VILANTEROL 200/25MCG 14 PUFFS/INHALER INH SCH (08:05)
--- NOTE | 2024-08-25 10:37 | Ultrasound Report ---
BILATERAL LOWER EXTREMITY VENOUS DOPPLER CLINICAL HISTORY: PEs, eval for DVT COMPARISON STUDY: Bilateral lower extremity venous Doppler ultrasound February 11, 2010. TECHNIQUE: Sonography of the deep venous system of the bilateral lower extremities was performed. Co mpression and augmentation were evaluated. FINDINGS: The bilateral common femoral, superficial femoral and popliteal veins were compressible. A ugmentation was normal. Flow was shown within the deep calf vessels. IMPRESSION: No evidence of deep venous thrombus within the bilateral lower extremities. ACT 112: Negative or not required by law. Electronically signed by: Joseluis Jacobsen M.D. 08/25/2024 10:35 AM
[2024-08-25 12:33] LABS: ANTI-Xa, UFH(UnfractionatedHep 0.85 IU/ml (0.3-0.7)
--- NOTE | 2024-08-25 13:20 | Orthopedic Consultation ---
Date of Service August 25, 2024 Assessment & Plan (1) Status post right knee replacement: He is currently on heparin for the bilateral PEs. I do not see any operative indications with the right knee. I see a mild cellulitis and I want him to continue the Keflex for that. He should be on the Keflex for a total of 10 days. The hospitalist can switch his anticoagulant when they feel ready. He should follow-up with orthopedics in the office as previously scheduled. History of Present Illness Reason for Consultation: 1 week status post right knee replacement with bilateral PEs. Requesting Physician: . Attending Physician: Zaki Macias MD Steve is a 83-year-old male who underwent an uncomplicated right knee replacement about a week ago. When he started doing more physical therapy he noticed he was very short of breath. He came to the emergency room and imaging demonstrated pulmonary embolisms of both lungs. He was admitted to the hospital service and started on heparin. Orthopedics was consulted for evaluation of his knee.. Allergies Allergy/AdvReac Type Severity Reaction Status Date / Time aspirin Allergy Severe hives and Verified 08/18/24 10:34 mouth/throat swelling, hyperventilation ketorolac AdvReac Severe Avoids Verified 08/18/24 09:22 secondary to aspirin component levofloxacin AdvReac Severe Torn Verified 08/18/24 09:22 tendons in Legs oxycodone AdvReac Intermediate Mental Verified 08/18/24 09:22 Status Change/Hallucinations Qdddjan-ANR-CkO Reductase AdvReac Intermediate severe Verified 08/18/24 09:22 Inhibitor muscle [Dobjmra-Kzl-Mny Reductase cramps Inhibitor] Home Medications Medication Instructions Recorded Confirmed Type allopurinol 100 mg tablet 200 mg PO QPM 08/10/18 08/24/24 History thiamine HCl (vitamin B1) 100 mg 100 mg PO QAM 08/10/18 08/24/24 History tablet pravastatin 10 mg tablet 10 mg PO QAM #30 tabs 12/21/21 08/24/24 Rx albuterol sulfate 90 mcg/actuation 2 puff inhalation Q6H PRN 07/29/22 08/24/24 Rx aerosol inhaler Shortness Of Breath #8.5 grams garlic 500 mg capsule 500 mg PO QAM 10/14/22 08/24/24 History omega-3 fatty acids 1,000 mg 1,000 mg PO QAM 10/14/22 08/24/24 History capsule cyanocobalamin (vitamin B-12) 100 100 mcg PO QAM 04/22/23 08/24/24 History mcg tablet fluticasone propionate 50 1 spray intranasal BID PRN Allergy 04/22/23 08/24/24 History mcg/actuation nasal Symptoms spray,suspension (Allergy Relief (fluticasone)) folic acid 1 mg tablet 1 mg PO Q2D 04/22/23 08/24/24 History clonidine HCl 0.1 mg tablet 0.1 mg PO TID PRN PRN SBP>180 #90 06/30/23 08/24/24 Rx tabs nitroglycerin 0.4 mg sublingual 0.4 mg sublingual PRN PRN chest 07/08/23 08/24/24 Rx tablet (Nitrostat) pain #25 tabs tiotropium bromide 2.5 2 inh inhalation QAM 09/21/23 08/24/24 History mcg/actuation mist for inhalation (Spiriva Respimat) duloxetine 60 mg capsule,delayed 60 mg PO QAM 10/21/23 08/24/24 History release levocetirizine 5 mg tablet 2.5 mg PO QAM allergy symptoms 10/21/23 08/24/24 History olopatadine 0.1 % eye drops 1 drp ophthalmic (eye) DAILY PRN 10/21/23 08/24/24 History Other trazodone 50 mg tablet 75 mg PO HS sleep 10/21/23 08/24/24 History dupilumab [Dupixent Pen] See Rx Instructions subcut .COMPLEX 03/29/24 08/24/24 H istory apixaban 2.5 mg tablet (Eliquis) 2.5 mg PO BID #180 tabs 05/24/24 08/24/24 Rx denosumab 60 mg/mL subcutaneous 60 mg subcut Q6MO 365 days #1 mL 05/29/24 08/24/24 Rx syringe (Prolia) ezetimibe 10 mg tablet 10 mg PO QAM 07/05/24 08/24/24 History finasteride 5 mg tablet 5 mg PO QAM 07/05/24 08/24/24 History fluticasone 500 mcg-salmeterol 50 1 inh inhalation QAM 07/05/24 08/24/24 History mcg/dose blistr powdr for inhalation (Wixela Inhub) hydrochlorothiazide 12.5 mg tablet 12.5 mg PO UD 07/05/24 08/24/24 History levothyroxine 50 mcg tablet 50 mcg PO QAM 07/05/24 08/24/24 History losartan 50 mg tablet 50 mg PO QAM 07/05/24 08/24/24 History metoprolol succinate 50 mg 75 mg PO QAM 07/05/24 08/24/24 History tablet,extended release 24 hr montelukast 10 mg tablet 10 mg PO QAM 07/05/24 08/24/24 History (Singulair) omeprazole 20 mg capsule,delayed 20 mg PO QAM 07/05/24 08/24/24 History release prednisone 20 mg tablet 20 mg PO .COMPLEX PRN Lung 07/05/24 08/24/24 History Infection tamsulosin 0.4 mg capsule (Flomax) 0.4 mg PO QAM 07/05/24 08/24/24 History oxycodone 5 mg tablet 5 mg PO Q4H PRN pain #30 tabs 08/19/24 08/24/24 Rx cefadroxil 500 mg capsule 500 mg PO UD 08/24/24 08/24/24 History clopidogrel 75 mg tablet (Plavix) 75 mg PO QAM 08/24/24 08/24/24 History Past Med/Surg History Problem List Pulmonary embolism (Acute) Pulmonary embolism, bilateral Status post right knee replacement (~08/2024) Atypical chest pain Bronchitis Intercostal muscle strain Osteoarthritis of right knee History of left knee surgery Neck Pain Osteopenia Chondrocalcinosis of right knee Chest pain (Acute) Gait disturbance Hyperparathyroidism, secondary Hypothyroidism (acquired) Back pain Osteoarthritis of knees, bilateral Partial tear of left Achilles tendon Partial tear of right Achilles tendon History of orthostatic hypotension Labile hypertension Chest pain (Acute) Balance problems Hyperparathyroidism, secondary Acute on chronic renal insufficiency 03/01/23 Osteoporosis Osteopenia Achilles rupture, left 11/04/22 Achilles rupture, right 11/04/22 Orthostatic hypotension BATES (dyspnea on exertion) Presence of drug coated stent in left circumflex coronary artery (12/2021) Orthostatic lightheadedness Chronic renal insufficiency (Acute) Dizziness (Acute) Lab test negative for COVID-19 virus (Acute) Hx of coronary artery disease (Acute) Near syncope (Acute) Gout flare Bilateral Achilles tendonosis Sinusitis 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 s/p single FERNANDO mid circ 12/20/2021 Gout (Acute) S/P drug eluting coronary stent placement Admitted to intensive care unit Mitral regurgitation CKD (chronic kidney disease) stage 4, GFR 15-29 ml/min (Acute) Tobacco use (Acute) Essential hypertension Positive colorectal cancer screening using Cologuard test Positive colorectal cancer screening using Cologuard test Compression fracture of T3 vertebra Elevated hemoglobin A1c Encounter for pre-operative examination Hypothyroidism Grief reaction Inflamed seborrheic keratosis Skin abnormality Diverticulum of bladder BPH w urinary obs/LUTS High prostate specific antigen (PSA) Ascending aortic aneurysm Cervical facet joint syndrome (Chronic) COPD (chronic obstructive pulmonary disease) (Chronic) Bilateral sensorineural hearing loss (Acute) Vitamin B12 deficiency (Acute) Sleep apnea (Acute) NO DEVICE (COULD NOT TOLERATE) Proteinuria (Acute) Lumbar radiculopathy (Acute) Chronic back pain (Acute) Anemia (Acute) Alcohol dependence (Acute) QUIT 2019 Lower urinary tract symptoms (LUTS) History of cervical spinal surgery (Chronic) C3-5 ACDF Hyperlipidemia Asthma (Chronic) PTSD (post-traumatic stress disorder) (Chronic) Medical History History of posttraumatic stress disorder (PTSD) Difficult intubation s/p cervical spine surgery Hx of hepatitis "[place] war, I was in the hospital for 5 days in the field from drinking untreated water" Carotid artery stenosis S/P RIGHT CEA (08/2018) Diverticular disease "found on colonoscopy" HTN (hypertension) controlled, stable per pt Atrial fibrillation "Slight" just completed Holter Monitor 05/2024 Sleep apnea can't tolerate device Hx of chest pain no current issues at this time Osteoporosis Pulmonary nodules Follows [facility] Dr Aurelio Camacho Mitral regurgitation Hypothyroidism BATES (dyspnea on exertion) "Not just moving around - its when I am doing extensive work like gardening" CAD (coronary artery disease) Dr Carrion Balance problems "Due to both achilles tendon tears" denies repair. doesn't use walker/cane/wheelchair COPD (chronic obstructive pulmonary disease) exacerbation 3 weeks ago-states he completed a course of doxycycline and prednisone CKD (chronic kidney disease) stage 3, GFR 30-59 ml/min Pt denies Follows Dr. Thomas Ascending aortic aneurysm "PCP/Dr. Patel monitors" Arthritis BPH (benign prostatic hyperplasia) History of colon cancer "removed 2 cancerous colon polyps - colonoscopys have came back clean ever since" Hx of gout no recent flares Anxiety and depression Temporomandibular joint dysfunction syndrome pt denies Seasonal allergies Scoliosis Deviated nasal septum Benign essential tremor Hands Pt denies Osteoarthritis GERD (gastroesophageal reflux disease) Controlled, stable per pt Hearing deficit Bilateral Hearing Aids Post traumatic stress disorder Degenerative disc disease Asthma stable per pt; last rescue albuterol inhaler use last week per patient, notes improvement after starting dupixent injections Surgical History History of heart artery stent x2 2021 Hx of cervical spine surgery C3-5 ACDF 2017 History of cataract surgery Right History of difficult intubation C3-5 ACDF= 08/23/17= Grade view 2, Glidescope#4, ETT 8.0 (Head/neck neutral for intubation) at [facility] History of right-sided carotid endarterectomy History of lumbar fusion L4-L5 History of tooth extraction History of tonsillectomy History of total shoulder replacement Bilateral History of total knee replacement Left History of esophagogastroduodenoscopy (EGD) History of colonoscopy with polypectomy History of cardiac cath - No Stents 2021 - With Stents x2 Family History Sister Breast cancer Cancer Hypertension Brother Myocardial infarction COPD (chronic obstructive pulmonary disease) Hypertension Father Hypertension Mother Hypertension Other No family history of adverse response to anesthesia Denies family history of Ovarian cancer Prostate cancer Diabetes Colorectal cancer Social History Smoking Status: Never smoker Tobacco Type: Smokeless Tobacco (Dip or Chew) Age Started Using Tobacco: 14; Age Quit Using Tobacco: 36; packs per day: 2; Second Hand Exposure: No; Do You Dip or Chew Tobacco: Yes; Tobacco Cessation Education Requested by Patient: No Hx Alcohol Use: No Hx Substance Use: No Preferred Language: [place] Communication Ability: Effective Visual Impairment: No Limitations Hearing Ability: Use of Hearing Aid Material Handler 2Nd Shift Required: No Beliefs That Will Affect Care: None marital status: / Current Living Situation: Alone current occupational status: retired 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 Physical Exam On physical exam of the right knee, there is a little bit of mild erythema around the incision. The incision looks really good. There is no drainage. He has range of motion from 0 to about 80 degrees at bedside.. Results & Data Results & Data Laboratory Results . Diagnostic Findings . PG Care Time/CCT Total # of Minutes Spent Total Time Spent with Patient: Total time spent is greater than 50% in coordination of care (as documented) at patient's floor/unit and/or counseling patient: Coding Level of Care Code None Diagnoses Status post right knee replacement Z96.651
[2024-08-25] MEDS: bisacodyL 10 MG SUPP PR STA (16:04)
--- NOTE | 2024-08-25 19:36 | Hospitalist Progress Note ---
Date of Service August 25, 2024 Assessment & Plan (1) Pulmonary embolism, bilateral: Plan: Patient recently stopped taking his Eliquis appropriately & as directed prior to right knee arthroplasty on 08/18 Restarted his Eliquis post-op on 08/21 However, he noted worsening SOB since then Chest CTA with b/l segmental and subsegmental PEs Heparin drip standard dosing started yesterday at ED presentation Eliquis on hold for now LE venous duplex study neg for DVTs Echo with normal right heart function Remains hemodynamically stable Cont heparin drip for now with ultimate transition to PO Eliquis (this is NOT a DOAC failure) (2) Status post right knee replacement: Plan: Right TKR 08/18/[address] Alejandro Phillips appreciate ortho consultation & recs Patient initially reported he has was not taking cefadroxil despite being prescribed this on 08/19; upon re-assessment, he says he might be taking it, but is not sure orthopedics today feels he has a mild cellulitis of the incision but NOT septic knee cont keflex 500mg QID (as long as renal function remains stable) sed rate (>130) and high CRP noted these levels are quite high for a simple cellulitis perhaps his acute PEs as well as the recent knee replacement itself are contributing? these inflammatory markers bear watching - will repeat CRP in 48 hours, sed rate in 4-5 days (3) CKD (chronic kidney disease) stage 4, GFR 15-29 ml/min: Plan: Cr today ~2 this is near his baseline BMP am HCTZ and losartan held upon admission Will follow for now and resume meds as needed (4) Anemia: Plan: mild likely 2nd to his recent surgery cbc in am for stability (5) Hyponatremia: Plan: Na 134 yesterday 133 today repeat BMP am looks euvolemic (6) PAF (paroxysmal atrial fibrillation): Plan: detected on Holter Monitor summer 2023 primary reason for Eliquis thus far no PAF on tele since admission cont anticoagulation (heparin for now) cont meto succ (7) Hypothyroidism (acquired): Plan: TSH 06/2024 wnl cont synthroid (8) COPD (chronic obstructive pulmonary disease): Plan: no flare at this time continue home inhalers, etc current dyspnea is due to b/l PEs (9) Coronary artery disease: Plan: no ischemic symptoms at this time cont meto succ cont plavix cont zetia cont pravastatin (10) Constipation: Plan: dulcolax suppos x 1 now then miralax BID + senna for maintenance (11) Hilar lymphadenopathy: Plan: seen incidentally on CT chest will need dedicated f/u for this - send to pulmonary for management/coordination post-discharge Plan PT, OT jovan appreciated Admission and Anticipated Discharge Date Admission Date: August 24, 2024 Subjective patient resting in bed comfortably reports no dyspnea at rest, but has considerable dyspnea on exertion does not typically require NC O2 outside the hospital he reports no bowel movement since prior to surgery lives alone but has children near-by was doing ok overall at home, but his home PT was limited due to the dyspnea c/o mild right knee pain denies any significant cough, congestion or URI symptoms Review of Systems Review of Systems: gen - no fevers; eating fine cv - no chest pain, no orthopnea pulm - no cough GI - no abd pain or N/V Physical Exam Physical Exam: gen - NAD, pleasant neck - no JVD mouth - MMM heart - RRR, s1 s2 lungs - CTA b/l, no rales, no wheeze abd - soft NT ND BS+ ext - no ankle edema, pulses 2+ b/l musculo - right TKR incision present, mari intact, there is mild warm erythema surrounding the entire incision; there is generalized swelling about the R knee psych - a/o x 3 Results & Data Results & Data Vital Signs (Past 12 Hours) Vital Signs Temp Pulse Resp BP Pulse Ox Pulse Ox O2 Del Method 08/25/24 16:27 36.6 C 82 20 148/83 H 99 Nasal Cannula 08/25/24 14:37 85 L 08/25/24 12:31 36.6 C 87 18 124/71 96 Nasal Cannula 08/25/24 07:46 36.5 C 87 20 141/63 H 97 Nasal Cannula O2 Flow Rate 08/25/24 16:27 08/25/24 14:37 08/25/24 12:31 2 08/25/24 07:46 Laboratory Results Laboratory Results - last 24 hr 08/24/24 08/25/24 08/25/24 22:54 01:12 03:10 WBC RBC Hgb Hct MCV MCH MCHC RDW Std Deviation RDW Coeff of [place] Plt Count MPV Immature Gran % (Auto) Neut % (Auto) Lymph % (Auto) [place] % (Auto) Eos % (Auto) Baso % (Auto) Neut # (Auto) Lymph # (Auto) [place] # (Auto) Eos # (Auto) Baso # (Auto) Immature Gran # (Auto) APTT 36 H PTT Ratio 1.3 Heparin Anti-Xa, Unfract 1.18 H* 0.89 H* 0.59 Sodium Potassium Chloride Carbon Dioxide Anion Gap BUN Creatinine Est Cr Clr Drug Dosing eGFR BUN/Creatinine Ratio Glucose Calcium 08/25/24 08/25/24 03:13 10:33 WBC 4.85 RBC 3.13 L Hgb 9.4 L Hct 28.6 L MCV 91.4 MCH 30.0 MCHC 32.9 RDW Std Deviation 47.7 H RDW Coeff of [place] 14.2 Plt Count 237 MPV 10.0 Immature Gran % (Auto) 0.4 Neut % (Auto) 56.7 Lymph % (Auto) 26.4 [place] % (Auto) 13.2 Eos % (Auto) 3.1 Baso % (Auto) 0.2 Neut # (Auto) 2.75 Lymph # (Auto) 1.28 [place] # (Auto) 0.64 H Eos # (Auto) 0.15 Baso # (Auto) 0.01 Immature Gran # (Auto) 0.02 Heparin Anti-Xa, Unfract 0.85 H* Sodium 133 L Potassium 4.3 Chloride 104 Carbon Dioxide 23 Anion Gap 6 BUN 35 H Creatinine 2.06 H Est Cr Clr Drug Dosing 28.9 eGFR 31.37 BUN/Creatinine Ratio 17.0 Glucose 94 Calcium 7.9 L Diagnostic Findings Venous Doppler Study 08/25/24 09:09 BILATERAL LOWER EXTREMITY VENOUS DOPPLER CLINICAL HISTORY: PEs, eval for DVT COMPARISON STUDY: Bilateral lower extremity venous Doppler ultrasound February 11, 2010. TECHNIQUE: Sonography of the deep venous system of the bilateral lower extremities was performed. Compression and augmentation were evaluated. FINDINGS: The bilateral common femoral, superficial femoral and popliteal veins were compressible. Augmentation was normal. Flow was shown within the deep calf vessels. IMPRESSION: No evidence of deep venous thrombus within the bilateral lower extremities. ACT 112: Negative or not required by law. Electronically signed by: Joseluis Jacobsen M.D. 08/25/2024 10:35 AM PG Care Time/CCT Total # of Minutes Spent Total Time Spent with Patient: Total time spent is greater than 50% in coordination of care (as documented) at patient's floor/unit and/or counseling patient: Coding Level of Care Code 84545 SUB INP/OBS CARE 350MIN Diagnoses Pulmonary embolism, bilateral I26.99 Status post right knee replacement Z96.651 CKD (chronic kidney disease) stage 4, GFR 15-29 ml/min N18.4 Anemia D64.9 Hyponatremia E87.1 PAF (paroxysmal atrial fibrillation) I48.0 Hypothyroidism (acquired) E03.9 COPD (chronic obstructive pulmonary disease) J44.9 Coronary artery disease involving [place] coronary artery of [place] heart, unspecified whether angina present I25.10 Coronary Disease-Associated Artery/Lesion type: [place] artery [place] vs. transplanted heart: [place] heart Associated angina: unspecified whether angina present Constipation K59.00 Hilar lymphadenopathy R59.0 (9) Coronary artery disease Coronary Disease-Associated Artery/Lesion type: [place] artery [place] vs. transplanted heart: [place] heart Associated angina: unspecified whether angina present Qualified Code(s): I25.10 - Atherosclerotic heart disease of [place] coronary artery without angina pectoris
--- NOTE | 2024-08-25 19:39 | XCELERA ---
[id number]
[2024-08-25 19:47] LABS: ANTI-Xa, UFH(UnfractionatedHep 0.58 IU/ml (0.3-0.7)
--- NOTE | 2024-08-25 21:04 | Electrocardiogram Report ---
Test Reason : Blood Pressure : */* mmHG Vent. Rate : 95 BPM Atrial Rate : 95 BPM P-R Int : 126 ms QRS Dur : 76 ms QT Int : 338 ms P-R-T Axes : 37 63 33 degrees QTcB Int : 424 ms Sinus rhythm with sinus arrhythmia with occasional Premature ventricular complexes Nonspecific T wave abnormality When compared with ECG of 17-Jul-2024 13:55, Vent. rate has increased by 36 bpm Confirmed by Delmar Bosch ([id number]) on 08/25/2024 9:04:34 PM Referred By: Confirmed By: Delmar Bosch
[2024-08-25] MEDS: POLYETHYLENE (MIRALAX) 17 GM PACK PO SCH (21:23)
[2024-08-26 01:40] LABS: ANTI-Xa, UFH(UnfractionatedHep 0.55 IU/ml (0.3-0.7)
[2024-08-26 06:26] LABS: Basophils # (auto) 0.01 K/uL (0.00-0.20); Basophils % (auto) 0.2 %; Eosinophils # (auto) 0.28 K/uL (0.00-0.50); Eosinophils % (auto) 5.5 %; Hematocrit (blood only) 29.8 % (42.0-52.0); Hemoglobin 9.9 g/dl (14.0-18.0); Immature Granulocytes # (auto) 0.03 K/uL (0.01-0.20); Immature Granulocytes % (auto) 0.6 %; Lymphocytes # (auto) 1.08 K/uL (1.20-3.40); Lymphocytes % (auto) 21.3 %; Mean Corpuscular Hemoglobin 30.1 pg (25.0-34.0); Mean Corpuscular Hgb Conc 33.2 g/dL (32.0-36.0); Mean Corpuscular Volume 90.6 fL (80.0-100.0); Mean Platelet Volume 9.9 fL (9.4-12.4); Monocytes # (auto) 0.54 K/uL (0.11-0.59); Monocytes % (auto) 10.7 %; Neutrophils # (auto) 3.12 K/uL (1.40-6.50); Neutrophils % (auto) 61.7 %; Platelet Count 279 K/uL (130-400); RDW Coefficient of Variation 13.7 % (11.5-14.5); RDW Standard Deviation 45.8 fL (36.4-46.3); Red Blood Count 3.29 M/uL (4.70-6.10); White Blood Count 5.06 K/ul (4.8-10.8)
[2024-08-26 06:45] LABS: BUN Creatinine Ratio 18.1 (10-20); Calcium 8.1 mg/dl (8.6-10.3); Potassium 4.2 mmol/L (3.5-5.1)
[2024-08-26] MEDS: DOCUSATE SODIUM/SENNA 50/8.6MG TAB PO SCH (08:11)
--- NOTE | 2024-08-26 13:25 | Hospitalist Progress Note ---
Date of Service August 26, 2024 Assessment & Plan (1) Pulmonary embolism, bilateral: Plan: Patient recently stopped taking his Eliquis appropriately & as directed prior to right knee arthroplasty on 08/18 Restarted his Eliquis post-op on 08/21 However, he noted worsening SOB since then Chest CTA with b/l segmental and subsegmental PEs Heparin drip started at ED presentation Eliquis on hold for now LE venous duplex study neg for DVTs Echo with normal right heart function Remains hemodynamically stable Cont heparin drip for now with ultimate transition to PO Eliquis (this is NOT a DOAC failure as he was off the Eliquis lopez-operatively when the VTE event likely occurred) (2) Status post right knee replacement: Plan: Right TKR 08/18/[address] Alejandro Phillips appreciate ortho consultation & recs Patient initially reported he has was not taking cefadroxil despite being prescribed this on 08/19; upon re-assessment, he says he might be taking it, but is not sure orthopedics feels he has a mild cellulitis of the incision but NOT septic knee cont keflex renally dosed sed rate (>130) and high CRP noted these levels are quite high for a simple cellulitis perhaps his acute PEs as well as the recent knee replacement itself are contributing? these inflammatory markers bear watching - will repeat CRP tomorrow cont keflex cont PT/OT - WBAT (3) CKD (chronic kidney disease) stage 4, GFR 15-29 ml/min: Plan: Cr today ~2.2 this is near his baseline BMP am HCTZ and losartan held upon admission Will follow for now and resume meds as needed for BP control (4) Anemia: Plan: mild likely 2nd to his recent surgery cbc stable today (5) Hyponatremia: Plan: Na 133 yesterday 135 today repeat BMP am (6) PAF (paroxysmal atrial fibrillation): Plan: detected on Holter Monitor summer 2023 primary reason for his prior Eliquis usage thus far no PAF on tele since admission cont anticoagulation (heparin for now) cont meto succ (7) Hypothyroidism (acquired): Plan: TSH 06/2024 wnl cont synthroid (8) COPD (chronic obstructive pulmonary disease): Plan: no flare at this time continue home inhalers, etc current dyspnea is due to b/l PEs (9) Coronary artery disease: Plan: no ischemic symptoms at this time cont meto succ cont plavix cont zetia cont pravastatin (10) Constipation: Plan: resolved s/p dulcolax suppos cont miralax BID + senna for maintenance (11) Hilar lymphadenopathy: Plan: seen incidentally on CT chest will need dedicated f/u for this - send to pulmonary for management/coordination post-discharge he follows with pulmonary in [place] patient reports having had a respiratory illness a few weeks before his TKR -- could be reactive, but [id number] needs follow-up place CT chest on CD-ROM for him made pt and his [id number] aware of this finding Plan PT, OT jovan appreciated hopefully will be able to return home with family at discharge Admission and Anticipated Discharge Date Admission Date: August 24, 2024 Subjective no events overnight he feels well using ice on right knee he thinks the erythema surrounding the incision is improved denies dyspnea at rest really hasn't walked today did have BM yesterday eating well [id number] present at bedside -- she reports that she and her are going to have Mr Arteaga come stay with them during his recovery Review of Systems Review of Systems: CV - no chest pain pulm - no cough/wheezing above his baseline COPD symptoms GI - no abd pain or N/V Physical Exam Physical Exam: gen - NAD, pleasant, sitting in recliner chair neck - no JVD mouth - MMM heart - RRR, s1 s2 lungs - mild end-exp wheezes b/l; no rales; no increased work of breathing abd - soft NT ND BS+ ext - trace edema right ankle/foot; none on left; pulses 2+ b/l musculo - right TKR incision present, mari intact, there is mild warmth about the knee; the previous erythema surrounding the entire incision is now a mild pink at best; there is generalized swelling about the R knee - somewhat better today psych - a/o x 3 Results & Data Results & Data Vital Signs (Past 12 Hours) Vital Signs Temp Pulse Pulse Resp BP Pulse Ox O2 Del Method 08/26/24 11:26 36.6 C 77 18 137/84 96 Room Air 08/26/24 09:00 Room Air 08/26/24 07:30 37.0 C 100 H 18 151/85 H 95 Room Air 08/26/24 07:15 96 H 08/26/24 02:51 36.8 C 98 H 18 157/80 H 94 Room Air Laboratory Results Laboratory Results - last 24 hr 08/25/24 08/26/24 08/26/24 18:53 00:55 05:35 WBC 5.06 RBC 3.29 L Hgb 9.9 L Hct 29.8 L MCV 90.6 MCH 30.1 MCHC 33.2 RDW Std Deviation 45.8 RDW Coeff of [place] 13.7 Plt Count 279 MPV 9.9 Immature Gran % (Auto) 0.6 Neut % (Auto) 61.7 Lymph % (Auto) 21.3 [place] % (Auto) 10.7 Eos % (Auto) 5.5 Baso % (Auto) 0.2 Neut # (Auto) 3.12 Lymph # (Auto) 1.08 L [place] # (Auto) 0.54 Eos # (Auto) 0.28 Baso # (Auto) 0.01 Immature Gran # (Auto) 0.03 Heparin Anti-Xa, Unfract 0.58 0.55 0.50 Sodium 135 L Potassium 4.2 Chloride 105 Carbon Dioxide 22 Anion Gap 8 BUN 40 H Creatinine 2.21 H Est Cr Clr Drug Dosing 27.0 eGFR 28.84 BUN/Creatinine Ratio 18.1 Glucose 101 H Calcium 8.1 L PG Care Time/CCT Total # of Minutes Spent Total Time Spent with Patient: Total time spent is greater than 50% in coordination of care (as documented) at patient's floor/unit and/or counseling patient: Coding Level of Care Code 89370 SUB INP/OBS CARE 2/35MIN Diagnoses Pulmonary embolism, bilateral I26.99 Status post right knee replacement Z96.651 CKD (chronic kidney disease) stage 4, GFR 15-29 ml/min N18.4 Anemia D64.9 Hyponatremia E87.1 PAF (paroxysmal atrial fibrillation) I48.0 Hypothyroidism (acquired) E03.9 COPD (chronic obstructive pulmonary disease) J44.9 Coronary artery disease involving [place] coronary artery of [place] heart, unspecified whether angina present I25.10 Associated angina: unspecified whether angina present Coronary Disease-Associated Artery/Lesion type: [place] artery [place] vs. transplanted heart: [place] heart Constipation K59.00 Hilar lymphadenopathy R59.0 (9) Coronary artery disease Associated angina: unspecified whether angina present Coronary Disease- Associated Artery/Lesion type: [place] artery [place] vs. transplanted heart: [place] heart Qualified Code(s): I25.10 - Atherosclerotic heart disease of [place] coronary artery without angina pectoris
[2024-08-26] MEDS: cephALEXin 500 MG CAP PO SCH (20:04)
[2024-08-27 07:27] LABS: C Reactive Protein 11.89 mg/dl (0-0.5); Calcium 7.9 mg/dl (8.6-10.3); Creatinine Clr Calc Pharmacy 27.9 ml/min; Potassium 4.5 mmol/L (3.5-5.1)
[2024-08-27 07:31] LABS: Basophils # (auto) 0.01 K/uL (0.00-0.20); Basophils % (auto) 0.2 %; Eosinophils % (auto) 4.4 %; Hematocrit (blood only) 27.9 % (42.0-52.0); Hemoglobin 9.5 g/dl (14.0-18.0); Immature Granulocytes # (auto) 0.04 K/uL (0.01-0.20); Immature Granulocytes % (auto) 0.9 %; Lymphocytes # (auto) 1.09 K/uL (1.20-3.40); Lymphocytes % (auto) 23.9 %; Mean Corpuscular Hemoglobin 30.1 pg (25.0-34.0); Mean Corpuscular Hgb Conc 34.1 g/dL (32.0-36.0); Mean Corpuscular Volume 88.3 fL (80.0-100.0); Mean Platelet Volume 9.6 fL (9.4-12.4); Monocytes # (auto) 0.49 K/uL (0.11-0.59); Monocytes % (auto) 10.7 %; Neutrophils # (auto) 2.73 K/uL (1.40-6.50); Neutrophils % (auto) 59.9 %; Platelet Count 275 K/uL (130-400); RDW Coefficient of Variation 13.6 % (11.5-14.5); RDW Standard Deviation 44.4 fL (36.4-46.3); Red Blood Count 3.16 M/uL (4.70-6.10); White Blood Count 4.56 K/ul (4.8-10.8)
[2024-08-27 07:40] LABS: ANTI-Xa, UFH(UnfractionatedHep 0.39 IU/ml (0.3-0.7)
--- NOTE | 2024-08-27 11:14 | Hospitalist Progress Note ---
Date of Service August 27, 2024 Assessment & Plan (1) Pulmonary embolism, bilateral: Plan: Patient recently stopped taking his Eliquis appropriately & as directed prior to right knee arthroplasty - surgical date was 08/18/24 Restarted his Eliquis post-op on 08/21 However, he noted worsening SOB since then Chest CTA 08/24/24 with b/l segmental and subsegmental PEs Heparin drip started at ED presentation Eliquis on hold for now LE venous duplex study neg for DVTs Echo with normal right heart function Remains hemodynamically stable Cont heparin drip for now with ultimate transition to PO Eliquis (this is NOT a DOAC failure as he was off the Eliquis lopez-operatively when the VTE event likely occurred) Will likely start Eliquis tomorrow am (2) Status post right knee replacement: Plan: Right TKR 08/18/[address] Alejandro Phillips appreciate ortho consultation & recs Patient initially reported he has was not taking cefadroxil despite being prescribed this on 08/19; upon re-assessment, he says he might be taking it, but is not sure orthopedics feels he has a mild cellulitis of the incision but NOT septic knee cellulitis is IMPROVED cont keflex sed rate (>130) and high CRP noted these levels are quite high for a simple cellulitis perhaps his acute PEs as well as the recent knee replacement itself are contributing? these inflammatory markers bear watching - repeat CRP today IS improved cont keflex cont PT/OT - WBAT (3) CKD (chronic kidney disease) stage 4, GFR 15-29 ml/min: Plan: Cr today ~2.1 this is near his baseline BMP am (4) Anemia: Plan: mild likely 2nd to his recent surgery cbc stable again today (5) Hyponatremia: Plan: Na 133 today stable ranging 133-135 last few days repeat BMP am (6) PAF (paroxysmal atrial fibrillation): Plan: detected on Holter Monitor summer 2023 primary reason for his prior Eliquis usage thus far no PAF on tele since admission brief run of NSVT today -- 5 beats no Rx needed simply cont metoprolol echo with preserved EF cont anticoagulation cont meto succ (7) Hypothyroidism (acquired): Plan: TSH 06/2024 wnl cont synthroid (8) COPD (chronic obstructive pulmonary disease): Plan: no flare at this time continue home inhalers, etc current dyspnea is due to b/l PEs will obtain 2-step O2 ambulatory test to see if he needs NC O2 upon return home (9) Coronary artery disease: Plan: no ischemic symptoms at this time cont meto succ cont plavix cont zetia cont pravastatin (10) Constipation: Plan: resolved s/p dulcolax suppos cont miralax BID + senna for maintenance (11) Hilar lymphadenopathy: Plan: seen incidentally on CT chest will need dedicated f/u for this - send to pulmonary for management/coordination post-discharge he follows with pulmonary in [place] patient reports having had a respiratory illness a few weeks before his TKR -- could be reactive, but [id number] needs follow-up place CT chest on CD-ROM for him made pt and his [id number]-[id number] aware of this finding Plan PT, OT jovan appreciated hopefully will be able to return home with family at discharge - anticipating d/c tomorrow AM 08/28 Admission and Anticipated Discharge Date Admission Date: August 24, 2024 Subjective tele overnight - NSR, ectopy 5-beat run of NSVT (no symptoms) patient laying in recliner chair during the visit reports R knee pain is improving day to day denies dyspnea does have baseline dyspnea on exertion he took a walk yesterday with staff in the hallway - did ok, by the time he got back he needed supplemental O2 (sats dropped to <90%) eating well had bowel movement yesterday no bleeding issues from heparin IV Review of Systems Review of Systems: cv - no chest pain pulm - no cough GI - no abd pain or n/v Physical Exam Physical Exam: gen - NAD, pleasant, sitting in recliner chair - looks good neck - no JVD mouth - MMM heart - RRR, s1 s2, no murmur lungs - mild end-exp wheezes b/l; mild rales bases (dry, fine); no increased work of breathing abd - soft NT ND BS+ ext - trace-1+ edema right ankle/foot; none on left; pulses 2+ b/l musculo - right TKR incision present, mari intact, minimal warmth about the knee; the previous erythema surrounding the entire incision is resolved; there is a right knee effusion - stable psych - a/o x 3 Results & Data Results & Data Vital Signs (Past 12 Hours) Vital Signs Temp Pulse Pulse Resp BP Pulse Ox O2 Del Method 08/27/24 07:52 36.9 C 101 H 18 157/82 H 95 Room Air 08/27/24 02:50 36.9 C 84 18 161/74 H 95 Room Air Laboratory Results Laboratory Results - last 24 hr 08/27/24 06:50 WBC 4.56 L RBC 3.16 L Hgb 9.5 L Hct 27.9 L MCV 88.3 MCH 30.1 MCHC 34.1 RDW Std Deviation 44.4 RDW Coeff of [place] 13.6 Plt Count 275 MPV 9.6 Immature Gran % (Auto) 0.9 Neut % (Auto) 59.9 Lymph % (Auto) 23.9 [place] % (Auto) 10.7 Eos % (Auto) 4.4 Baso % (Auto) 0.2 Neut # (Auto) 2.73 Lymph # (Auto) 1.09 L [place] # (Auto) 0.49 Eos # (Auto) 0.20 Baso # (Auto) 0.01 Immature Gran # (Auto) 0.04 Heparin Anti-Xa, Unfract 0.39 Sodium 133 L Potassium 4.5 Chloride 105 Carbon Dioxide 21 Anion Gap 7 BUN 45 H Creatinine 2.14 H Est Cr Clr Drug Dosing 27.9 eGFR 29.97 BUN/Creatinine Ratio 21.0 H Glucose 97 Calcium 7.9 L C-Reactive Protein 11.89 H PG Care Time/CCT Total # of Minutes Spent Total Time Spent with Patient: Total time spent is greater than 50% in coordination of care (as documented) at patient's floor/unit and/or counseling patient: Coding Level of Care Code 63183 SUB INP/OBS CARE 2/35MIN Diagnoses Pulmonary embolism, bilateral I26.99 Status post right knee replacement Z96.651 CKD (chronic kidney disease) stage 4, GFR 15-29 ml/min N18.4 Anemia D64.9 Hyponatremia E87.1 PAF (paroxysmal atrial fibrillation) I48.0 Hypothyroidism (acquired) E03.9 COPD (chronic obstructive pulmonary disease) J44.9 Coronary artery disease involving [place] coronary artery of [place] heart, unspecified whether angina present I25.10 Associated angina: unspecified whether angina present Coronary Disease-Associated Artery/Lesion type: [place] artery [place] vs. transplanted heart: [place] heart Constipation K59.00 Hilar lymphadenopathy R59.0 (9) Coronary artery disease Associated angina: unspecified whether angina present Coronary Disease- Associated Artery/Lesion type: [place] artery [place] vs. transplanted heart: [place] heart Qualified Code(s): I25.10 - Atherosclerotic heart disease of [place] coronary artery without angina pectoris
[2024-08-27] MEDS: NICOTINE 21 MG/24 HR TDSY TD SCH (21:01)
[2024-08-28 08:03] LABS: ANTI-Xa, UFH(UnfractionatedHep 0.35 IU/ml (0.3-0.7); Calcium 8.3 mg/dl (8.6-10.3); Potassium 4.8 mmol/L (3.5-5.1)
[2024-08-28 08:08] LABS: BUN Creatinine Ratio 19.9 (10-20); Creatinine Clr Calc Pharmacy 28.9 ml/min
[2024-08-28 10:50] VITALS: PULSE 90; RESP 18; TEMP 97.9; O2SAT 94
[2024-08-28] MEDS: APIXABAN 5 MG TABLET PO STA (12:12)
--- NOTE | 2024-08-28 12:18 | Discharge Summary ---
Discharge Summary Date of Service August 28, 2024 Principal Dx & Hospital Course #1 = Principal Diagnosis (1) Pulmonary embolism, bilateral: Provoked VTE event in the setting of right total knee replacement surgery. Patient recently stopped taking his Eliquis appropriately & as directed prior to right knee arthroplasty - surgical date was 08/18/24 Restarted his Eliquis post-op on 08/21/24 However, he noted worsening dyspnea since 08/21/24 Chest CTA 08/24/24 with b/l segmental and subsegmental PEs Heparin drip started at ED presentation Received ~5 days of heparin drip during the stay Transitioned to Eliquis 10mg BID the AM of 08/28/24 LE venous duplex study neg for DVTs Echo with normal right heart function Was hemodynamically stable during the stay At discharge recommend the following - * Eliquis 10mg BID x 2 days, then - * Eliquis 5mg BID thereafter * As this was a provoked event, recommend 3 months of 5mg BID dosing of Eliquis * After that could consider lowering his Eliquis to 2.5mg BID (this was his dose for paroxysmal a.fib prior to his surgery) Of note - ambulatory 2-step O2 test was completed and showed NO NEED for home O2 (2) Postoperative pulmonary embolism: as above in #1 (3) Status post right knee replacement: Right TKR 08/18/[address] Alejandro Phillips was formally consulted during the stay Patient initially reported he has was not taking cefadroxil despite being prescribed this on 08/19; upon re-assessment, he says he might have been taking it, but he was not sure Orthopedics felt he had a mild cellulitis of the incision but NOT septic knee Cellulitis IMPROVED while here on Keflex Patient had high sed rate (>130) and high CRP (18) upon admission CRP improved to 11 prior to discharge with treating the cellulitis with Keflex These inflammatory marker levels were quite high for a simple cellulitis but perhaps his acute PEs as well as the recent knee replacement itself contributed to the high levels as well Either way the repeat CRP improved as noted above Patient will cont PT/OT upon discharge home He can WBAT on the right knee (4) Cellulitis of right knee: See #3 above. Orthopedics felt he had mild cellulitis about the incision/staple line. Treated with keflex while here. Erythema improved nicely with such. Will complete 5 more days of keflex upon discharge home. (5) CKD (chronic kidney disease) stage 4, GFR 15-29 ml/min: Cr ranged 2 to 2.2 during the stay, with discharge Cr ~2 this is near his baseline (6) Anemia: mild discharge hemoglobin 9.5 mild anemia likely 2nd to his recent surgery there were no signs of bleeding from any location during the stay (7) Hyponatremia: Na ranged 133-135 during the stay (8) PAF (paroxysmal atrial fibrillation): detected on Holter Monitor summer 2023 primary reason for his prior Eliquis usage had no PAF on tele during the admission had 1 brief run of NSVT -- 5 beats -- during the stay; no symptoms from such no Rx needed - simply cont metoprolol echo during the admission - preserved EF, no LV regional wall motion abnormalities cont Eliquis cont meto succ (9) Hypothyroidism (acquired): TSH 06/2024 wnl cont synthroid (10) COPD (chronic obstructive pulmonary disease): no flare during the admission continue home inhalers, etc c/o dyspnea at admission was due to b/l PEs 2-step O2 ambulatory test - passed; no need for home O2 (11) Coronary artery disease: no ischemic symptoms during the admission cont meto succ cont plavix cont zetia cont pravastatin (12) Constipation: resolved s/p dulcolax suppository cont miralax + senna for maintenance (13) Hilar lymphadenopathy: seen incidentally on CT chest will need dedicated f/u for this - send to pulmonary for management/coordination post-discharge he follows with pulmonary in [place] patient reports having had a respiratory illness a few weeks before his TKR -- could be reactive, but [id number] needs follow-up placed CT chest on CD-ROM for him made pt and his [id number] aware of this finding Plan PT, OT evals completed during the visit cleared to return home with family at discharge will have home PT/OT services Notes For Next Care Provider Enlarged hilar lymph node -- needs f/u with pulmonology for this (see #12 above) Medication Changes From Visit Eliquis 10mg PO BID x 2 days, then 5mg BID thereafter for 3 months. Thereafter consider reducing the dose to 2.5mg BID (was on this dose for a.fib earlier this year). Admission HPI Per Admitting Provider Steve Arteaga is an 83-year-old male with PMH of asthma-COPD overlap syndrome, HLD, HTN, alcohol dependence, PTSD, sleep apnea, BPH, hypothyroidism, CKD, tobacco use, and CAD s/p FERNANDO. He presented on 08/24 for worsening SOB over the past several days. Patient had a right total knee arthroplasty performed on 08/18. He stopped his Eliquis 3 days prior to knee replacement, then restarted it on Tuesday 08/21. His shortness of breath started on Tuesday 08/21, and has progressively worsened. He endorses both SOB with exertion and at rest. Worse when he lies flat on his back. No prior history of DVT/PE. Patient is unsure why he takes Eliquis; unsure if he has a history of atrial fibrillation; reports that he only takes it to thin his blood. Patient lives alone. Patient ambulates with a walker at baseline. He has been trying to ambulate between his living room in the kitchen, but reports that he nearly passes out due to lightheadedness when he does this. For instance, he had to lean over his walker and catch his breath this morning when walking to his kitchen, and had to sit down in his stool because things are starting to get "black". A few steps with his walker will "knock him out". Patient reports he has eaten very little over the past 4 days as he has trouble getting to his kitchen. He denies any syncope or falls. Patient took all his regular morning medications today; no recent change in medications. He reports he manages his own medicine at home. No sick contacts. No supplemental oxygen at baseline. No CPAP at night. He denies smoking or recent alcohol use. He is a former tobacco chewer, but has not used in several weeks. Patient reports that pain in his right knee is bearable, and is currently at a 4/10. It is worse with movements, and he has been taking Tylenol at home for the pain; he was initially taking oxycodone, but stopped after a couple days. He has not noticed any drainage from the surgical site. It was last dressed today. He reports he has not taken off his compression stockings since surgery, but notes that his right calf has been swelling. Patient is hypertensive at 181/90 at time of admission; SpO2 97% on RA; vitals otherwise stable. ED course: Heparin IV without bolus Albuterol 2.5 mg neb ROS: Patient endorses chills, lightheadedness, SOB both at rest and with exertion, orthopnea, productive cough (white/yellow sputum production), difficulty with urinating, dysuria (since having knee done), and swelling/erythema in the right lower leg and knee. Patient denies fever, night-sweats, dizziness (like the room is spinning), falls, fainting, chest pain, chest palpitations, pleuritic CP, hemoptysis, abdominal pain, N/V/D, blood or clots in the urination, burning with urination, blood in the stool, saddle anesthesia, new lower back pain, drainage from the right knee surgical site, or numbness/tingling in the arms or legs. Update: Provided update to family at bedside regarding labs/imaging and admission. Re-confirmed DNR/DNI status. Discharge Exam gen - NAD, pleasant, sitting in recliner chair - looks good neck - no JVD mouth - MMM heart - RRR, s1 s2, no murmur lungs - mild end-exp wheezes b/l; mild rales bases (dry, fine); no increased work of breathing abd - soft NT ND BS+ ext - trace-1+ edema right ankle/foot; none on left; pulses 2+ b/l musculo - right TKR incision present, mari intact, minimal warmth about the knee; the previous erythema surrounding the entire incision is resolved; there is a mild right knee effusion - stable psych - a/o x 3 Discharge Plan Discharge Items Patient Disposition: Home - Home Health Services Reason For Visit: PULMONARY EMBOLISM, BILATERAL Discharge Diagnosis: 1. bilateral pulmonary emboli of lungs - stable 2. cellulitis of right knee - improved 3. enlarged lymph node in the chest on CT scan - follow-up needed with your lung specialist for this 4. 4mm right upper lobe lung nodule seen on CT scan - UNCHANGED from prior scans 5. COPD 6. coronary artery disease 7. history of atrial fibrillation discovered 2023 8. chronic kidney disease Activity: As commented below Activity Comment: follow ALL previous instructions given after your knee replacement surgery Bathing Comment: follow all instructions given following recent knee replacement surgery Exercise Comment: follow all instructions given by orthopedics following knee surgery Weightbearing: Right weightbearing Non-emergency contact: Primary Care Provider and Surgeon Call non-emergency contact if: you have any medication questions and your symptoms worsen Follow-up/Referrals: Israel Patel MD [Primary Care Provider] - 09/04/24 11:30 am (1 week Scheduled with EARL Baker on 09/04/24 at 11:30 am ) Alejandro Phillips DO [Physician] - Diet: Heart Healthy Addtl Attending Provider Instructions: Mr Arteaga, You were hospitalized for blood clots of the lungs. These are called "pulmonary emboli." See handout. Typically the clots form first in either leg, travel thru the circulation, and deposit themselves in the lungs. Once they are in the lungs they cannot travel any where else. The body naturally dissolves the clots over the next 1-2 months. We did check your legs with ultrasounds and we did not find any residual clot there (by the time we looked all the clots had moved to your lungs). You were treated with heparin infusion, then transitioned back to ELIQUIS on the AM of 08/28. During your stay Dr Phillips's team from orthopedics checked your right knee. They felt you had a mild skin infection (cellulitis) of the front of the knee. This was treated with antibiotics and it improved nicely while here. Dr Phillips's team does NOT think that the actual knee joint is harboring infection. You were seen by PT/OT and did well with them. They feel you can discharge to home with your family as your family will be providing considerable assistance during your recovery. An echocardiogram completed of your heart during this stay was very acceptable with normal heart function and healthy heart valves. A walking oxygen test completed on 08/27 showed that you do NOT need to have supplemental oxygen at home. Recommendations - 1. You may have an antibiotic already at home that was given following your recent knee surgery. Please put that to the side / do not take that particular antibiotic. 2. START cephalexin 500mg twice daily x 5 days, first dose TONIGHT. This is your antibiotic for the skin infection of the outside of the right knee. 3. ELIQUIS blood thinner - take as follows (note that I called in a prescription for 5mg tablets; you previously were taking 2.5mg tablets in the past) - * Matt08/28 BEDTIME - take a total of 10mg (two 5mg tablets) * 08/29 AM - take a total of 10mg (two 5mg tablets) * 08/29 BEDTIME - take a total of 10mg (two 5mg tablets) * Wednesday, 08/30 AM and thereafter -- take 5mg twice daily Dr Patel will manage your Eliquis for you. You will likely have to take the larger 5mg twice daily dosing schedule for at least 3 months. 4. Follow any previous instructions given by Dr Phillips after your recent knee surgery. 5. Continue to ice your right knee as much as possible/as desired to help reduce pain & swelling. Follow-up - see separate section Return to [facility] if - * you have worsening shortness of breath * you have chest pains * you have any concerns about your right knee (worsening pain, redness, swelling, etc) * you have bleeding from any location as listed below * any other concerns It was our pleasure to care for you! Addtl Airdox Fitter Provider Instructions: Blood Thinner ("Anticoagulant") Medication Instructions: Your pulmonary embolus condition is typically treated with an anticoagulant. Anticoagulants will thin your blood to help prevent new clots. Your blood thinner is "ELIQUIS." * You should take your medication exactly as directed. * Never skip a dose. * Never take a double dose. If you miss a dose, take it as soon as you remember. Call your Primary Care doctor if you experience any of the following: * Swelling or Pain in your leg * Sudden, continuous pain deep in a muscle * Pain that worsens when you are active or when you stand still for a long time * Chest Pain * Sudden Shortness of Breath * Rapid or pounding heart beat * Fainting * Dizziness * Cough with blood or bloody sputum * Sweating more than normal * Bruises * Heavy or uncontrolled bleeding * Blood in your urine, stool or vomit * Black or tarry stools * Heavy nose bleeding Caring for Your Self at Home: * Avoid sitting, standing or lying down for long periods without moving your legs and feet * When traveling by car, stop to get out and move around at least once every 3 hours * On long airplane, train or bus rides, get up and move around when possible * If you can't get up, wiggle your toes and tighten your calves to keep your blood moving Follow Up: It is important for you to keep your follow up appointments with your medical provider. Pending Studies at Discharge: No Stand-Alone Forms: [facility], Smoking Cessation Medications and DC Order Prescriptions: Continued nitroglycerin [Nitrostat] 0.4 mg tablet, sublingual 0.4 mg sublingual PRN PRN (Reason: chest pain) Qty: 25 5RF Prolia 60 mg/mL syringe 60 mg subcut Q6MO 365 Days Qty: 1 1RF Patient Comments: "I think this is once a year not every 6 months - last injection was 11/2023" Rx Instructions: NOT DUE UNTIL OCTOBER albuterol sulfate 90 mcg/actuation HFA aerosol inhaler 2 puff INHALATION Q6H PRN (Reason: Shortness Of Breath) Qty: 8.5 4RF Rx Instructions: Per [facility] Pharmacist, script is . Filled january 09, 2022 clonidine HCl 0.1 mg tablet 0.1 mg PO TID PRN (Reason: PRN SBP>180) Qty: 90 2RF Spiriva Respimat 2.5 mcg/actuation mist 2 inh inhalation QAM duloxetine 60 mg capsule,delayed release(DR/EC) 60 mg PO QAM Patient Comments: Rx by psych thiamine HCl (vitamin B1) 100 mg Tablet 100 mg PO QAM allopurinol 100 mg Tablet 200 mg PO QPM Rx Instructions: 2 tabs at bedtime to prevent gout pravastatin 10 mg Tablet 10 mg PO QAM Qty: 30 2RF olopatadine 0.1 % drops 1 drp ophthalmic (eye) DAILY PRN (Reason: ALLERGIES) omega-3 fatty acids 1,000 mg Capsule 1,000 mg PO QAM Rx Instructions: No order on file from [facility]; CURRENTLY ON HOLD 09/04/24 garlic 500 mg Capsule 500 mg PO QAM Rx Instructions: [facility] Pharmacist unable to verify ; CURRENTLY ON HOLD 09/04/24 cyanocobalamin (vitamin B-12) 100 mcg Tablet 100 mcg PO QAM folic acid 1 mg Tablet 1 mg PO Q2D fluticasone propionate [Allergy Relief (fluticasone)] 50 mcg/actuation spray,suspension 1 spray intranasal BID PRN (Reason: Allergy Symptoms) Rx Instructions: administer into each nostril once daily trazodone 50 mg tablet 75 mg PO HS PRN (Reason: sleep) metoprolol succinate 50 mg tablet extended release 24 hr 75 mg PO QAM tamsulosin [Flomax] 0.4 mg capsule 0.4 mg PO QAM levothyroxine 50 mcg tablet 50 mcg PO QAM omeprazole 20 mg capsule,delayed release(DR/EC) 20 mg PO QAM montelukast [Singulair] 10 mg tablet 10 mg PO QAM finasteride 5 mg tablet 5 mg PO QAM Patient Comments: QPM ezetimibe 10 mg tablet 10 mg PO QAM fluticasone propion-salmeterol [Wixela Inhub] 500-50 mcg/dose Blister With Device 1 inh INHALATION QAM clopidogrel [Plavix] 75 mg tablet 75 mg PO QAM Held dupilumab [Dupixent Pen] See Rx Instructions subcut .COMPLEX Hold Instructions: Hold until orthopedics and/or Dr Patel's office tell you it is safe to resume Rx Instructions: 1 inj subcutaneously Q 2WK; LAST DOSE WAS THREE WEEKS AGO hydrochlorothiazide 12.5 mg tablet 12.5 mg PO UD Hold Instructions: hold unless Dr Patel advises you to resume Rx Instructions: 12.5 mg po qam. per pt he does half tab; CURRENTLY ON HOLD 09/04/24 Discontinued Eliquis 2.5 mg tablet 2.5 mg PO BID Qty: 180 3RF losartan 50 mg tablet 50 mg PO QAM prednisone 20 mg tablet 20 mg PO .COMPLEX PRN (Reason: Lung Infection) Patient Comments: "Only if I get an infection in my lungs" Rx Instructions: 20 mg PO; 3 tablets PO x 3 days; 2 tablets PO x 3 days; 1 tablets PO x 3 days; 1/2 tablet PO x 4 days cefadroxil 500 mg capsule 500 mg PO UD Rx Instructions: 500 mg po bid. Says he doesnt take but was prescribed 08/19 for 10 days No Action apixaban 5 mg tablet 5 mg PO BID Qty: 60 2RF cetirizine [Zyrtec] 10 mg tablet 10 mg PO DAILY Qty: 30 3RF losartan 50 mg tablet 25 mg PO QAM Discharge Orders: Discharge Order (Routine); Ordered 08/28/24 Ordered By: Zaki Cortez/Other Patient Handouts: Pulmonary Embolism Admission Data Admit Date/Time: 08/24/24 17:14 Attending Provider: Zaki Macias Admit Provider: Fox Mace Primary Care Provider: Israel Patel Other Providers: Alejandro Phillips Other Interventions: Discharge Summary Assessment (RN) Last Done: 08/28/24 12:36 Hospital Stay Data [place]ations [facility] [place], OT Procedures Performed 1. echocardiogram - 2. Two-step ambulatory O2 test -- passed; home O2 not needed Diagnostic Imagining Performed Chest X-Ray 08/24/24 13:35 XR chest 1V portable HISTORY: 83 years-old Male Chest pain, nonspecific COMPARISON: 07/17/2024 TECHNIQUE: AP view of the chest FINDINGS: Cardiac silhouette is normal. Lungs are clear. No pneumothorax or pleural effusion. Bilateral shoulder arthroplasties. Spondylitic spurring of the spine. IMPRESSION: No acute process. ACT 112: Negative or not required by law. The above report was generated using voice recognition software. It may contain grammatical, syntax or spelling errors. Electronically signed by: Kit Crow M.D. 08/24/2024 2:51 PM Chest CTA 08/24/24 13:52 CT ANGIOGRAM OF THE CHEST CLINICAL HISTORY: Dyspnea COMPARISON STUDY: Chest x-ray dated 08/24/2024. Chest CT dated 01/26/2023. TECHNIQUE: Following the IV administration of 101 cc of Optiray 320, CT angiogram of the chest was performed from the upper abdomen to the thoracic inlet utilizing the pulmonary embolus protocol. Images are reviewed in the axial, sagittal, and coronal planes. 3-D MIPS images are created and assessed. IV contrast was administered without complication. A dose lowering technique was utilized adhering to the principles of ALARA. There is streak artifact from bilateral shoulder arthroplasties. CT DOSE: 839.54 mGy.cm FINDINGS: Thyroid: Normal in size and heterogeneous in attenuation. Thoracic aorta: There is atherosclerotic calcification of the thoracic aorta, which is normal in caliber and demonstrates bovine variant arch anatomy. No dissection is seen. Pulmonary vasculature: The pulmonary trunk is normal in caliber. There are segmental and subsegmental pulmonary emboli within branches of the right upper lobe pulmonary artery. There are also segmental and subsegmental pulmonary emboli within branches of the left upper lobe pulmonary artery. The central pulmonary vessels are clear. Heart: The heart is mildly enlarged and without pericardial effusion. The coronary arteries are densely calcified. Lungs and pleural spaces: Evaluation of the lung parenchyma is modestly degraded by motion artifact. Scarring/atelectasis is noted at both lung bases, right greater than left. A 4 mm right upper lobe pulmonary nodule on image #144 is unchanged. There are scattered calcified granulomas. Mediastinum: There is no mediastinal lymphadenopathy. Gemma: An enlarged right hilar node on image #114 measures 3.0 x 2.0 cm. No left hilar adenopathy is seen. Axillae: There is no axillary lymphadenopathy. Upper abdomen: There is a small hiatal hernia. Partially visualized upper abdominal viscera is otherwise within normal limits. Skeletal structures: The skeletal structures are osteopenic. Mild chronic compression deformities are noted in the upper to mid thoracic region. No lytic or blastic bony lesions are seen. Bilateral shoulder arthroplasties are in place. IMPRESSION: 1. Segmental and subsegmental pulmonary emboli are seen within branches of the right and left upper lobe pulmonary arteries. 2. Cardiomegaly noting advanced coronary artery atherosclerosis. 3. No airspace consolidation or pleural effusion is identified. 4. There is a pathologically enlarged right hilar lymph node. This is indeterminate, and may have been present previously. This was not well assessed on the 01/26/2023 examination due to lack of IV contrast. A six-month follow-up contrast-enhanced chest CT is recommended for reassessment. 5. Additional findings as above. ACT 112: Negative or not required by law. Electronically signed by: Phill Oakley M.D. 08/24/2024 4:14 PM Knee X-Ray 08/24/24 17:43 TWO VIEWS RIGHT KNEE CLINICAL HISTORY: Erythema and swelling. Recent knee arthroplasty. FINDINGS: AP and crosstable lateral portable views of the right knee are compared to study dated 08/18/2024. A right knee arthroplasty is in near anatomic alignment. There has been undersurface remodeling of the patella. No acute fracture is seen. There is a joint effusion, with soft tissue edema around the knee. Soft tissue edema has increased from the 08/18/2024 examination. Skin clips are in place. There are foci of subcutaneous gas which are likely related to recent surgery. IMPRESSION: 1. No acute bony abnormality is identified and a right knee arthroplasty is in near anatomic alignment. 2. There is increasing prepatellar soft tissue edema as compared to previous. Correlate clinically. ACT 112: Negative or not required by law. Electronically signed by: Phill Oakley M.D. 08/24/2024 7:11 PM Venous Doppler Study 08/25/24 09:09 BILATERAL LOWER EXTREMITY VENOUS DOPPLER CLINICAL HISTORY: PEs, eval for DVT COMPARISON STUDY: Bilateral lower extremity venous Doppler ultrasound February 11, 2010. TECHNIQUE: Sonography of the deep venous system of the bilateral lower extremities was performed. Compression and augmentation were evaluated. FINDINGS: The bilateral common femoral, superficial femoral and popliteal veins were compressible. Augmentation was normal. Flow was shown within the deep calf vessels. IMPRESSION: No evidence of deep venous thrombus within the bilateral lower extremities. ACT 112: Negative or not required by law. Electronically signed by: Joseluis Jacobsen M.D. 08/25/2024 10:35 AM Discharge Instructions Given to Patient (Per Discharging Provider) Mr Arteaga, Brandin were hospitalized for blood clots of the lungs. These are called "pulmonary emboli." See handout. Typically the clots form first in either leg, travel thru the circulation, and deposit themselves in the lungs. Once they are in the lungs they cannot travel any where else. The body naturally dissolves the clots over the next 1-2 months. We did check your legs with ultrasounds and we did not find any residual clot there (by the time we looked all the clots had moved to your lungs). You were treated with heparin infusion, then transitioned back to [facility] on the AM of 08/28. During your stay Dr Phillips's team from orthopedics checked your right knee. They felt you had a mild skin infection (cellulitis) of the front of the knee. This was treated with antibiotics and it improved nicely while here. Dr Phillips's team does NOT think that the actual knee joint is harboring infection. You were seen by PT/OT and did well with them. They feel you can discharge to home with your family as your family will be providing considerable assistance during your recovery. An echocardiogram completed of your heart during this stay was very acceptable with normal heart function and healthy heart valves. A walking oxygen test completed on 08/27 showed that you do NOT need to have supplemental oxygen at home. Recommendations - 1. You may have an antibiotic already at home that was given following your recent knee surgery. Please put that to the side / do not take that particular antibiotic. 2. START cephalexin 500mg twice daily x 5 days, first dose TONIGHT. This is your antibiotic for the skin infection of the outside of the right knee. 3. ELIQUIS blood thinner - take as follows (note that I called in a prescription for 5mg tablets; you previously were taking 2.5mg tablets in the past) - * Wednesday, 08/28 BEDTIME - take a total of 10mg (two 5mg tablets) * Wednesday, 08/29 AM - take a total of 10mg (two 5mg tablets) * Wednesday, 08/29 BEDTIME - take a total of 10mg (two 5mg tablets) * Wednesday, 08/30 AM and thereafter -- take 5mg twice daily Dr Patel will manage your Eliquis for you. You will likely have to take the larger 5mg twice daily dosing schedule for at least 3 months. 4. Follow any previous instructions given by Dr Phillips after your recent knee surgery. 5. Continue to ice your right knee as much as possible/as desired to help reduce pain & swelling. Follow-up - see separate section Return to [facility] if - * you have worsening shortness of breath * you have chest pains * you have any concerns about your right knee (worsening pain, redness, swelling, etc) * you have bleeding from any location as listed below * any other concerns It was our pleasure to care for you! Total Time Total Time Spent Total Time Spent (In Minutes): 45 Coding Level of Care Code 62174 INP/OBS DISCH >30 MIN Diagnoses Pulmonary embolism, bilateral I26.99 Postoperative pulmonary embolism T81.718A; I26.99 Status post right knee replacement Z96.651 Cellulitis of right knee L03.115 CKD (chronic kidney disease) stage 4, GFR 15-29 ml/min N18.4 Anemia D64.9 Hyponatremia E87.1 PAF (paroxysmal atrial fibrillation) I48.0 Hypothyroidism (acquired) E03.9 COPD (chronic obstructive pulmonary disease) J44.9 Coronary artery disease involving [place] coronary artery of [place] heart, unspecified whether angina present I25.10 Associated angina: unspecified whether angina present Coronary Disease-Associated Artery/Lesion type: [place] artery [place] vs. transplanted heart: [place] heart Constipation K59.00 Hilar lymphadenopathy R59.0
[2024-08-28 12:37] VITALS: BP 148/83
[2024-08-28] MEDS ORDERED: APIXABAN 5 MG TABLET PO SCH (21:00)
--- NOTE | 2024-09-07 08:10 | Coding Query ---
CODING QUERY To promote full compliance with coding requirements relating to patient care, provider participation is requested in all cases of inclusion special educator uncertainty. Please assist us with the question(s) below: Coding Question(s): The documentation regarding the Pulmonary Embolism on the H&P is, "Segmental and subsegmental PEs are noted. Suspect that this is from provoking surgery in a time period where his anticoagulation was held rather than DOAC failure as his symptoms began the same day he restarted Eliquis", and then no more mention of that until the Discharge Summary, "Pulmonary embolism, bilateral: Provoked VTE event in the setting of right total knee replacement surgery. Patient recently stopped taking his Eliquis appropriately & as directed prior to right knee arthroplasty - surgical date was 08/18/24 Restarted his Eliquis post- op on 08/21/24 However, he noted worsening dyspnea since 08/21/24". Please clarify if the PE was postoperative complication or not a postoperative complication. Physician's Response(s): Post-operative complication Thank you Mitali Kelley Principal Diagnosis: "that condition established after study, to be chiefly responsible for occasioning the admission of the patient to the hospital for care." Co-Existing Principal Diagnosis: "when two or more diagnoses equally meet the criteria for principal diagnosis as determined by the circumstances of admission, diagnostic work up, and/or therapy provided, and the Alphabetic Index, Tabular List, or another coding guideline does not provide sequencing direction, any one of the diagnoses may be sequenced first." "When the physician has documented what appears to be a current diagnosis in the body of the record, but has not included the diagnosis in the final diagnostic statement, the physician should be asked whether the diagnosis should be added." (Source [facility]oding [facility] 2 QTR90. p3-4) DENIZ
== END 2024-08-28 15:10 | disposition home health service (06) | DRG 300 ==
LOC: ED 13:30 → 2S 17:14 → SUATTDRO 17:14 → 2S 21:00